=== PATIENT | female | born 1960 | race Two or more races ===

== ENCOUNTER 2025-01-09 22:38 | Inpatient (IN) | payer MEDICARE, MEDICAID ==
[~2025-01-09] VITALS: Ht 157.5 cm; Wt 70.6 kg
[~2025-01-09 22:38] MED LIST: ATOR40TA52 PO; CARV3.1240 PO; FLUO-470 PO; FURO40TA4 PO; LEVO137T3 PO; TRAZ-227 PO
--- NOTE | 2025-01-09 23:39 | ED.PDOC ---
History of Present Illness(SKN HPI Comments 64-year-old female was transferred to the ER from [place] for the management of right foot osteomyelitis and right 1st distal phalanx transverse fracture. Per reviewing of the nodes, patient hit her right foot on the lamp 2-3 months back, since then has been following with [place], she was initially diagnosed with osteomyelitis and was prescribed doxycycline and Augmentin and discharged. Patient return to [place] earlier today for purulent drainage and pain of the right big toe, and had a for X 5 cm full-thickness ulceration with tendon exposed and malodorous drainage. Distal tip of 1st toe with 1 X 1 cm ulceration. Distal plantar foot with fluctuance. Right foot 3+ view x-ray at [place] on 01/09/2025 showed transversely fractuere of the base 1st distal phalynx, Vascular calcification. Anatomy alignment. Patient denies any fever, chills, nausea, vomiting at this time. Reports pain at the right big toe. She was receiving IV vancomycin and Zosyn at [place]. Last hemodialysis was today. Past medical history: Diabetes mellitus type 2 on insulin, hypertension, ESRD on hemodialysis with [facility]-Wednesday//Wednesday sick sinus status post pcm/aicd Attestation note: Dr. Penn: I was the supervising attending for this ED encounter. Please see the resident's notes. I was available for questions and consultations. MDM: MDM: patient presented with the above HPI.--foot fracture/infection---workup was initiated. patient was found with the above mentioned diagnosis. the following medications were ordered: please refer to order lists of meds and tests obtained by myself Dr. Penn. Patient ED course and VS have been stabilized. Patient has been reassessed in the ED and remained in a stable condition. Pertinent incidental findings were discussed with the patient and/or family. Patient/family voices understanding and is agreeable with plan. Patient has been observed in the ED adequate length of time to insure improvement/stability. Escalation of care considered: Consideration of escalation to observation or admission Patient was ADMITTED to the medicine team for further evaluation and treatment of their presentation. All the reports of any imaging studies that were ordered by myself were reviewed by myself. Chief Complaint: Lower Extremity Time Seen by MD: 23:07 History of Present Illness: Allergies Allergies: Coded Allergies: NO KNOWN ALLERGIES (Unverified , 01/09/25) Home Meds Reported Medications Fluoxetine HCl (Fluoxetine HCl) 20 Mg Cap, 1 CAP PO DAILY for 30 Days, #30 01/15/25 Trazodone Hcl (Trazodone Hcl) 50 Mg Tab, 1 TAB PO DAILY for 30 Days, #30 01/15/25 Atorvastatin Calcium (ATORVASTATIN CALCIUM) 40 Mg Tab, 1 TAB PO DAILY for 30 Days, #30 01/15/25 Furosemide (Furosemide) 40 Mg Tab, 1 TAB PO BID for 30 Days, #60 01/15/25 Carvedilol (Carvedilol) 3.125 Mg Tab, 1 TAB PO BID for 30 Days, #60 01/15/25 Levothyroxine Sodium (Levothyroxine Sodium) 137 Mcg Tab, 1 TAB PO DAILY for 30 Days, #30 01/15/25 Information Source: Patient Mode of Arrival: EMS Constitutional: reports: chills EENTM: denies: blurred vision, double vision, ear bleeding, ear discharge, ear drainage, ear pain, ear ringing, eye pain, eye redness, hearing loss, mouth pain, mouth swelling, nasal discharge, nose bleeding, nose congestion, nose pain, photophobia, tearing, throat pain, throat swelling, voice changes, others Respiratory: denies: cough, hemoptysis, orthopnea, SOB at rest, shortness of breath, SOB with excertion, stridor, wheezing, others Cardiovascular: denies: chest pain, dizzy spells, diaphoresis, Dyspnea on exertion, edema, irregular heart beat, left arm pain, lightheadedness, p alpitations, PND, syncope, others Gastrointestinal: reports: constipated Genitourinary: denies: abnormal vagina bleeding, burning, dyspareunia, dysuria, flank pain, frequency, hematuria, incontinence, pain, , vagina discharge, urgency, others Neurological: denies: dizziness, fainting, headache, left sided numbness, left sided weakness, numbness, paresthesia, pre-existing deficit, right sided numbness, right sided weakness, seizure, speech problems, tingling, tremors, weakness, others Musculoskeletal: reports: joint pain Integumetry: reports: laceration, wounds Allergic/Immunocompromised: denies: Difficulty Healing, Frequent Infections, Hives, Itching, others Hematologic/Lymphatic: denies: anemia, blood clots, easy bleeding, easy bruising, swollen glands, others Endocrine: denies: excessive hunger, excessive sweating, excessive thirst, excessive urination, flushing, intolerance to cold, intolerance to heat, unexplained weight gain, unexplained weight loss, others Psychiatric: denies: anxiety, bipolar disorder, depression, hopeless, panic disorder, schizophrenia, sleepless, suicidal, others Physical Exam General Appearance: Mild Distress HEENT: Cornea (L), Cornea (R) Neck: NOT DONE Respiratory: No Accessory Muscle Use, No Respiratory Distress, Normal Breath Sounds Cardiovascular: No Edema, Regular Rate/Rhythm Breast Exam: Deferred Gastrointestinal: No Organomegaly, Non Tender, Normal Bowel Sounds Genitalia: Deferred Pelvic: Deferred Rectal: Deferred Extremities: Other (Right foot has 4x4cm purulent draining malodorous deep wound, sensation intact, motor function intact) Neurologic: Normal Mood, Other (Right lower extremity has intact motor and sen mirian function) Cerebellar Function: NOT DONE Reflexes: NOT DONE Skin: Warm, Wounds Lymphatic: NOT DONE Was a procedure done? Was a procedure done?: No Differential Diagnosis (INTG) Differential Diagnosis: Cellulitis, Contusion, Fracture, Hematoma, Puncture Wound Differential Diagnosis: Abscess, Cellulitis, Gangrene, Osteomyelitis Differential Diagnosis: Abrasion, Fracture, Neurovascular Injury Abscess: Abscess, Bacteremia Differential Diagnosis: Open Fracture, Osteomyelitis X-Ray, Labs, Meds, VS Vital Signs Date Time Temp Pulse Resp B/P (MAP) Pulse Ox O2 Delivery O2 Flow Rate FiO2 01/09/25 23:04 72 16 145/73 95 Lab Test 01/09/25 23:40 Range/Units White Blood Count 11.2 H 4.4-10.8 10^3/uL Red Blood Count 3.10 L 4.0-5.20 10^6/uL Hemoglobin 10.3 L 12.2-16.2 g/dL Hematocrit 30.4 L 36.0-46.0 % Mean Corpuscular Volume 97.9 80.0-100.0 fL Mean Corpuscular Hemoglobin 33.1 H 28.0-32.0 pg Mean Corpuscular Hemoglobin Concent 33.8 32.0-36.0 g/dL Red Cell Distribution Width 15.1 H 11.8-14.3 % Platelet Count 188 140-450 10^3/uL Mean Platelet Volume 8.4 6.9-10.8 fL Neutrophils (%) (Auto) 88.5 H 37.0-80.0 % Lymphocytes (%) (Auto) 5.1 L 10.0-50.0 % Monocytes (%) (Auto) 5.3 0.0-12.0 % Eosinophils (%) (Auto) 0.5 0.0-7.0 % Basophils (%) (Auto) 0.6 0.0-2.0 % Neutrophils # (Auto) 9.9 H 1.6-8.6 10 ^3/uL Lymphocytes # (Auto) 0.6 0.4-5.4 10 ^3/uL Monocytes # (Auto) 0.6 0-1.3 10 ^3/uL Eosinophils # (Auto) 0.1 0-0.8 10 ^3/uL Basophils # (Auto) 0.1 0-0.2 10 ^3/uL Nucleated Red Blood Cells 0.0 % Erythrocyte Sedimentation Rate 54 H 0-20 mm/hr Sodium Level 141 136-145 mmol/L Potassium Level 3.6 3.5-5.1 mmol/L Chloride Level 101 98-107 mmol/L Carbon Dioxide Level 29 20-31 mmol/L Anion Gap 11 5-15 Blood Urea Nitrogen 19 9-23 mg/dL Creatinine 2.48 H 0.550-1.02 mg/dL Glomerular Filtration Rate Calc 21 >90 mL/min BUN/Creatinine Ratio 7.7 L 10.0-20.0 Serum Glucose 155 H 74-106 mg/dL Lactic Acid Level 1.3 0.4-2.0 mmol/L Calcium Level 9.2 8.7-10.4 mg/dL Total Bilirubin 0.6 0.2-1.0 mg/dL Aspartate Amino Transferase (AST) 16 13-40 U/L Alanine Aminotransferase (ALT) 10 7-40 U/L Alkaline Phosphatase 144 H 46-116 U/L C-Reactive Protein High Sensitivity 4.44 H <1.0 mg/dL Total Protein 6.6 5.7-8.2 g/dL Albumin 3.6 3.2-4.8 g/dL Hepatitis B Surface Antigen Negative Negative Hepatitis C Antibody Negative Negative Microbiology Date/Time Source Procedure Growth Status 01/09/25 23:45 Blood Blood Culture - Final NO GROWTH AFTER 5 DAYS OF INCUBATION. Complete 01/09/25 23:45 Blood Blood Culture - Final NO GROWTH AFTER 5 DAYS OF INCUBATION. Complete X-Ray, Labs, Meds, VS Comment CBC CMP right foot CT scan without contrast pending at this time Time of 1ST Reevaluation: 00:09 Reevaluation 1ST: Unchanged Consultation: PCP, Other (Podiatry) Patient Education/Counseling: Prognosis, Need For Follow Up Family Education/Counseling: Other (Spoke to daughter zafar over the phone) SEPSIS Sepsis Screen Date sepsis recognized/suspect: Jan 09, 2025 Time Sepsis recognized/suspect: 2306 Recent Procedure: No On Antibiotic Therapy: No Respiratory Rate >20: No Heart Rate >90: No Temp<36 C (96.8 F) or >38.3 C: No SBP <90 or MAP <65 mmHG: No New Acute Mental Status Change: No Is the patient on CPAP, BIPAP,: No Physician Orders Ct R Foot Wo Contrast (01/09/25 23:42) Vital Signs Date Time Temp Pulse Resp B/P (MAP) Pulse Ox O2 Delivery O2 Flow Rate FiO2 01/09/25 23:04 72 16 145/73 95 Laboratory Tests Test 01/09/25 23:40 Lactic Acid Level 1.3 mmol/L (0.4-2.0) White Blood Count 11.2 10^3/uL (4.4-10.8) H Departure 1 Departure Time of Disposition: 23:38 Impression: Primary Impression: Toe osteomyelitis, right Additional Impression: Toe fracture, right Disposition: ADMITTED INPATIENT Admit to: Tele Condition: Guarded Discharged With: Self Critical Care Note Critical Care Time?: No Stability Stability form required: No MILLY SNYDER RESIDENT Jan 09, 2025 23:39 ROSIBEL PENN DO Jan 25, 2025 22:44
[2025-01-10] VITALS (8 sets, daily range): BP systolic 127–138; BP diastolic 72–84; PULSE 69–77; RESP 14–18; TEMP 97.5–97.6; O2SAT 92–98
[2025-01-10] LABS: Hematocrit 30.4 % (36.0-46.0); Hemoglobin 10.3 g/dL (12.2-16.2); Mean Corpuscular Hemoglobin 33.1 pg (28.0-32.0); Mean Corpuscular Volume 97.9 fL (80.0-100.0); Nucleated Red Blood Cells % 0.0 %
[2025-01-10 00:19] LABS: Alanine Aminotransferase 10 U/L (7-40); Albumin 3.6 g/dL (3.2-4.8); Anion Gap 11 (5-15); BUN/Creatinine Ratio 7.7 (10.0-20.0); Bilirubin, Total 0.6 mg/dL (0.2-1.0); Blood Urea Nitrogen 19 mg/dL (9-23); Calcium 9.2 mg/dL (8.7-10.4); Carbon Dioxide 29 mmol/L (20-31); Chloride 101 mmol/L (98-107); Potassium 3.6 mmol/L (3.5-5.1); Sodium 141 mmol/L (136-145); Total Protein 6.6 g/dL (5.7-8.2)
[2025-01-10 00:21] LABS: Alkaline Phosphatase 144 U/L (46-116); Glucose 155 mg/dL (74-106)
--- NOTE | 2025-01-10 00:23 | DVH ---
EXAMINATION: CT CT R FOOT WO CONTRAST INDICATION: osteomyelitis, purulent wount COMPARISON: None TECHNIQUE: CT of the rightleft foot was performed without contrast. Volume transverse images were obt ained reconstructed in multiple planes using bone and soft tissue algorithms. Dose: CTDI vol: 8 mGy. DLP: 175 mGy-cm. FINDINGS: Assessment of soft tissues is limited by lack of IV contrast. Large full-thickness dorsal ulcer extending across the 1st-2nd metatarsophalangeal joints. Erosion an d fragmentation throughout the 1st distal phalanx with intraosseous gas. Soft tissue gas extends angelica g the plantar foot to the medial midfoot, and laterally to the 4th toe. Diffuse soft tissue swelling of the forefoot. No other obvious erosion or fracture. Metatarsal mineralization appears normal. The hallux sesamoids are diffusely sclerotic, a nonspecific appearance. No obvious fluid collection. Diffuse atrophy of intrinsic foot muscles. Dense peripheral atherosclero sis. IMPRESSION: Large dorsal full-thickness soft tissue ulcer of the medial forefoot. Osteomyelitis and fragmentatio n of the 1st distal phalanx. Gas extending along osseous structures to the 1st tarsometatarsal joint , and laterally to the 4th toe, all likely positive for osteomyelitis.
[2025-01-10] MEDS ORDERED: MORPHINE SULFATE INJ 2 MG/ml SYRG IV PRN (00:30)
[2025-01-10] MEDS ORDERED: VANCOMYCIN PER PHARMACY 0 MG IV SCH (00:30)
--- NOTE | 2025-01-10 00:31 | DVHHPRES ---
History of Present Illness Resident Creating Document: BURAK JIMÉNEZ History of Present Illness Kaitlin Ojeda is a 64-year-old female patient who presents to ED with chief complaint of nonhealing right foot wound which started three weeks before her admission, progressively got worse presenting purulent discharge with foul smell and not able to bear weight on her foot. Worsening symptoms prompted her visit to the ED. Patient denies any associated symptoms including fever, chills, palpitation, syncope and dysuria. Past medical history: Hypertension, dyslipidemia, prediabetes, congestive heart failure status post ICD placement, hypothyroidism, end-stage renal disease on hemodialysis (currently with [facility]), anxiety Surgical history: Av fistula right arm, ICD placement Family history: Noncontributory Social history: Lives in [place] alone (next of kin is daughter). Denies current tobacco, alcohol and other drug abuse Allergies: Denies Home medication: Insulin, atorvastatin, carvedilol, levothyroxine 137 mcg p.o. daily Patient seen and examined at bedside. Currently has no new complaints. Patient admitted for further evaluation Past Medical History Per HPI Past Surgical History Per HPI Family History Per HPI Past Social History Per HPI Review of Systems Review of Systems Per HPI Allergies: Coded Allergies: NO KNOWN ALLERGIES (Unverified , 01/09/25) Exam Vital Signs Vital Signs Date Time Temp Pulse Resp B/P (MAP) Pulse Ox O2 Delivery O2 Flow Rate FiO2 01/09/25 23:04 72 16 145/73 95 Exam Patient lying in bed, in no acute distress General: Lucid, afebrile, mucosae are moist Cardiovascular: Normal S1 and S2. No murmurs, gallops or rubs Respiratory: Normal ventilation mechanics. Clear lung sounds on auscultation Abdomen: Soft, nontender, no organomegaly, normal bowel sounds MSK/skin: Mobilizes 4 limbs. Skin is dry and warm. Right foot is swollen, has purulent discharge and erythema, bilateral pulses diminished more right than left, atrophic changes on skin of bilateral lower limbs. Presents AV fistula in right arm which thrills. Neurological: Oriented in 3 spheres. No motor no sensitive deficits. Pupils are isocoric and reactive Labs/Xrays Labs Test 01/09/25 23:40 Range/Units White Blood Count 11.2 H 4.4-10.8 10^3/uL Red Blood Count 3.10 L 4.0-5.20 10^6/uL Hemoglobin 10.3 L 12.2-16.2 g/dL Hematocrit 30.4 L 36.0-46.0 % Mean Corpuscular Volume 97.9 80.0-100.0 fL Mean Corpuscular Hemoglobin 33.1 H 28.0-32.0 pg Mean Corpuscular Hemoglobin Concent 33.8 32.0-36.0 g/dL Red Cell Distribution Width 15.1 H 11.8-14.3 % Platelet Count 188 140-450 10^3/uL Mean Platelet Volume 8.4 6.9-10.8 fL Neutrophils (%) (Auto) 88.5 H 37.0-80.0 % Lymphocytes (%) (Auto) 5.1 L 10.0-50.0 % Monocytes (%) (Auto) 5.3 0.0-12.0 % Eosinophils (%) (Auto) 0.5 0.0-7.0 % Basophils (%) (Auto) 0.6 0.0-2.0 % Neutrophils # (Auto) 9.9 H 1.6-8.6 10 ^3/uL Lymphocytes # (Auto) 0.6 0.4-5.4 10 ^3/uL Monocytes # (Auto) 0.6 0-1.3 10 ^3/uL Eosinophils # (Auto) 0.1 0-0.8 10 ^3/uL Basophils # (Auto) 0.1 0-0.2 10 ^3/uL Nucleated Red Blood Cells 0.0 % Sodium Level 141 136-145 mmol/L Potassium Level 3.6 3.5-5.1 mmol/L Chloride Level 101 98-107 mmol/L Carbon Dioxide Level 29 20-31 mmol/L Anion Gap 11 5-15 Blood Urea Nitrogen 19 9-23 mg/dL Creatinine 2.48 H 0.550-1.02 mg/dL Glomerular Filtration Rate Calc 21 >90 mL/min BUN/Creatinine Ratio 7.7 L 10.0-20.0 Serum Glucose 155 H 74-106 mg/dL Lactic Acid Level 1.3 0.4-2.0 mmol/L Calcium Level 9.2 8.7-10.4 mg/dL Total Bilirubin 0.6 0.2-1.0 mg/dL Aspartate Amino Transferase (AST) 16 13-40 U/L Alanine Aminotransferase (ALT) 10 7-40 U/L Alkaline Phosphatase 144 H 46-116 U/L C-Reactive Protein High Sensitivity 4.44 H <1.0 mg/dL Total Protein 6.6 5.7-8.2 g/dL Albumin 3.6 3.2-4.8 g/dL SEPSIS Sepsis Screen Date sepsis recognized/suspect: Jan 09, 2025 Time Sepsis recognized/suspect: 2306 Recent Procedure: No On Antibiotic Therapy: No Respiratory Rate >20: No Heart Rate >90: No Temp<36 C (96.8 F) or >38.3 C: No SBP <90 or MAP <65 mmHG: No New Acute Mental Status Change: No Is the patient on CPAP, BIPAP,: No Physician Orders Cleanse Wound With Ns (01/09/25 23:27) Cleanse Wound W/ Sterile Gauze (01/09/25 23:27) Erythrocyte Sedimentation Rate (01/09/25 23:28) Blood Culture (01/09/25 23:28) Ct R Foot Wo Contrast (01/09/25 23:42) Admit (01/10/25 00:22) Code Status (01/10/25 00:) Acetaminophen Tablet (Tylenol Tablet) (01/10/25 00:30) Ondansetron Hcl (Zofran) (01/10/25 00:30) Morphine Sulfate Injection (01/10/25 00:30) Enoxaparin Sodium (Lovenox) (01/10/25 10:00) Oxygen By Nasal Cannula (01/10/25:22) Stat Ekg For Chest Pain (01/10/25:) Notify Md Of Changes From Base (01/10/25:) Resident Care Director For 24 Hours (01/10/25:) Emergency Dysrhythmia Protocol (01/10/25) Rhythm Strips Once Every Shift (01/10/25:) Vancomycin 1gm/250ml Kit (01/10/25 00:30) Vancomycin Per Pharmacy (01/10/25 00:30) Piperacillin-Tazob 3.375gm (Zosyn 3.375g (01/10/25 06:00) Piperacillin-Tazob 3.375gm (Zosyn 3.375g (01/10/25 00:30) Npo (Nothing By Mouth) Diet (01/10/25 Breakfast) Vital Signs Date Time Temp Pulse Resp B/P (MAP) Pulse Ox O2 Delivery O2 Flow Rate FiO2 01/09/25 23:04 72 16 145/73 95 Laboratory Tests Test 01/09/25 23:40 Lactic Acid Level 1.3 mmol/L (0.4-2.0) White Blood Count 11.2 10^3/uL (4.4-10.8) H Assessment/Plan Assessment/Plan Diabetic foot complicated with osteomyelitis in right foot Cellulitis of right foot Rule out PAD Completed foot CT which shows osteomyelitis and fragmentation 1st distal phalanx, gas extending along nauseous structures from tarsometatarsal joint laterally two 4th toe. Ordered mistry cultures (blood, wound, urine) Currently under empiric IV antibiotic (Zosyn and linezolid). Evaluate switching to vancomycin once nephrology is on board for hemodialysis. Consulted wound care and podiatry Ordered bilateral lower limb duplex arterial ultrasound End-stage renal disease on hemodialysis session Consulted nephrology, pending hemodialysis session Normocytic anemia probably secondary to ESRD Monitor Congestive heart failure (pending LVEF) - status post ICD placement Ordered echocardiogram Hypertension Dyslipidemia Diabetes Currently on insulin sliding scale Continue home medication (carvedilol and atorvastatin) Gave advice on healthy lifestyle habits Ordered hemoglobin A1c Goals of care discussed with patient for over 18 minutes of all full code status Discussed plan with Dr. Bowie, patient and nurses: Patient currently on telemetry status, planning on evaluation by Wound Care and Podiatry same plan of action. Patient is currently under empiric IV antibiotic, no IV fluids due to end-stage renal disease, ordered complementary workup to evaluate infection and peripheral artery disease. Patient has poor prognosis Plan discussed with: Patient, Other (Nurses) My Orders Orders - BURAK JIMÉNEZ RESIDENT Procedure Category Date Status Time Admit ADMIT 01/10/25 Transmitted 00:22 Code Status CODE 01/10/25 Transmitted 00:22 Acetaminophen Tablet PHA 01/10/25 Logged (Tylenol Tablet) 00:30 Ondansetron Hcl PHA 01/10/25 Logged (Zofran) 00:30 Morphine Sulfate PHA 01/10/25 Logged Injection 00:30 Enoxaparin Sodium PHA 01/10/25 Logged (Lovenox) 10:00 Oxygen By Nasal RT 01/10/25 Transmitted Cannula 00:22 Stat Ekg For Chest [facility] 01/10/25 In Process Pain 00:22 Notify Of Changes [facility] 01/10/25 In Process From Base 00:22 Resident Care Director For [facility] 01/10/25 In Process 24 Hours 00:22 Emergency Dysrhythmia [facility] 01/10/25 In Process Protocol 00:22 Rhythm Strips Once [facility] 01/10/25 In Process Every Shift 00:22 Vancomycin 1gm/250ml PHA 01/10/25 Logged Kit 00:30 Vancomycin Per PHA 01/10/25 Logged Pharmacy 00:30 Piperacillin-Tazob PHA 01/10/25 Logged 3.375gm (Zosyn 3.375g 06:00 Piperacillin-Tazob PHA 01/10/25 Logged 3.375gm (Zosyn 3.375g 00:30 Npo (Nothing By DIET 01/10/25 Transmitted Mouth) Diet Breakfast Date of Service: Jan 10, 2025 Billing Provider: ROBERTO BOWIE MD Common Visit Codes: 54914-[id number] INP/OBS CARE (HIGH) Secondary Visit Codes: 80299-[id number] CARE PLAN 30 MINUTES BURAK JIMÉNEZ RESIDENT Jan 10, 2025 00:31
--- NOTE | 2025-01-10 02:29 | DVH ---
CHEST RADIOGRAPH Indication: Sepsis Technique: Single frontal view of the chest was obtained COMPARISON: None FINDINGS: Lines and Tubes: Left anterior chest wall cardiac pacing device. Lungs: Clear Pleura: No effusion. No pneumothorax. Cardiomediastinal contours: Cardiomegaly. Bones: Unremarkable IMPRESSION: 1. Cardiomegaly.
[2025-01-10] MEDS: VANCOMYCIN 1.5GM/250ML 250 ML IV ONE (03:04)
[2025-01-10] MEDS: SODIUM CHLORIDE 0.9% 250 ML IV ONE (04:03)
[2025-01-10] MEDS: PIPERACILLIN-TAZOB 3.375GM 100 ML IV ONE (04:56)
[2025-01-10] MEDS: SODIUM CHLORIDE 0.9% 1,000 ML IV SCH (05:13)
[2025-01-10] MEDS ORDERED: PIPERACILLIN-TAZOB 3.375GM 100 ML IV SCH (06:00)
[2025-01-10] MEDS: ENOXAPARIN SOD 40 MG/0.4 ML SYRINGE SC SCH (08:20)
[2025-01-10] MEDS: LINEZOLID 600MG/300ML 300 ML IV SCH (08:54)
[2025-01-10] MEDS: ONDANSETRON HCL 4 MG/2 ML VIAL IV PRN (09:55)
[2025-01-10 10:48] LABS: Hepatitis B Surface Antigen Negative (Negative); Hepatitis C Antibody Negative (Negative)
[2025-01-10] MEDS: CARVEDILOL 3.125 MG TAB PO ONE (12:04)
[2025-01-10] MEDS: LEVOTHYROXINE SODIUM 50 MCG TAB PO ONE (12:05)
[2025-01-10] MEDS: PIPERACILLIN-TAZOB 3.375GM 100 ML IV SCH (12:05)
[2025-01-10 12:26] LABS: Hematocrit 31.5 % (36.0-46.0); Hemoglobin 10.3 g/dL (12.2-16.2); Mean Corpuscular Hemoglobin 32.2 pg (28.0-32.0); Mean Corpuscular Volume 98.7 fL (80.0-100.0); Nucleated Red Blood Cells % 0.0 %
[2025-01-10 12:30] LABS: INR 1.21 (0.9-1.15); Partial Thromboplastin Time 32.4 SEC (24.5-34.5); Prothrombin Time 12.6 sec (9.3-11.8)
--- NOTE | 2025-01-10 13:00 | DVHPN2 ---
Reviewed: Care Plan Changes from previous H/P or p: No Changes Objective Vitals Vital Signs Date Time Temp Pulse Resp B/P (MAP) Pulse Ox O2 Delivery O2 Flow Rate FiO2 01/10/25 12:04 79 142/78 01/10/25 09:00 97.6 18 92 97.6 01/10/25 07:53 Room Air* 0 21 Intake/Output Intake and Output 01/10/25 07:00 Intake Total 1250 ml Balance 1250 ml Intake IV Total 1250 ml # Voids 2 Medications Current Medications Medications Dose Ordered Sig/Seth Route Start Time Stop Time Status Last Admin Dose Admin Acetaminophen 325 mg Q4HP PRN PO 01/10/25 00:30 Ondansetron HCl 4 mg Q4HP PRN IV 01/10/25 00:30 01/10/25 09:55 4 MG Morphine Sulfate 2 mg Q4HPRN PRN IV 01/10/25 00:30 Enoxaparin Sodium 40 mg DAILY SC 01/10/25 10:00 Linezolid 300 ml @ 150 mls/hr Q12HR IV 01/10/25 10:00 01/10/25 08:54 150 MLS/HR Sodium Chloride 1,000 ml @ 60 mls/hr [id number] IV 01/10/25 03:30 01/10/25 05:13 60 MLS/HR Piperacillin Sod/ Tazobactam Sod 100 ml @ 25 mls/hr Q8H IV 01/10/25 13:15 01/10/25 12:05 25 MLS/HR Atorvastatin Calcium 40 mg HS PO 01/10/25 22:00 Carvedilol 3.125 mg Q12HR PO 01/10/25 22:00 Levothyroxine Sodium 125 mcg QAM@0600 PO 01/11/25 06:00 Laboratory Results Laboratory Tests 01/10/25 11:31 Chemistry Test 01/09/25 23:40 01/10/25 11:31 Albumin 3.6 g/dL (3.2-4.8) Pending Calcium Level 9.2 mg/dL (8.7-10.4) Pending Total Protein 6.6 g/dL (5.7-8.2) Pending Magnesium Level Pending Phosphorus Level Pending Coagulation Test 01/10/25 11:31 Prothrombin Time 12.6 sec (9.3-11.8) H Prothrombin Time INR 1.21 (0.9-1.15) H Activated Partial Thromboplast Time 32.4 SEC (24.5-34.5) Lipid panel Test 01/10/25 11:31 Cholesterol Level Pending HDL Cholesterol Pending Triglycerides Level Pending LFT Test 01/09/25 23:40 01/10/25 11:31 Alanine Aminotransferase (ALT) 10 U/L (7-40) Pending Alkaline Phosphatase 144 U/L (46-116) H Pending Aspartate Amino Transferase (AST) 16 U/L (13-40) Pending Total Bilirubin 0.6 mg/dL (0.2-1.0) Pending HgA1c, TSH Test 01/10/25 11:31 Hemoglobin A1c Pending Thyroid Stimulating Hormone (TSH) Pending Labs and/or images reviewed: Labs reviewed by me, Image(s) reviewed by me Assessment/Plan Assessment/Plan Sepsis Secondary to right foot infection Nonhealing chronic right foot diabetic ulcer Osteomyelitis right 1st toe: Zojune Zyvarthur, consult for podiatric Dr. Crowder Rule out peripheral arterial disease: Arterial ultrasound pending Uncontrolled Diabetes: Insulin sliding scale ESRD on hemodialysis Anxiety Hypothyroidism Hypertension Hypercholesterolemia CHF exacerbation History of ICD placement Time spent 70 minutes Advanced care planning time 20 minutes Patient is full code Patient lives with her nephew in [place] Daughter lives in [place] Plan discussed with: Patient My Orders Orders - CANDIDA GALLEGOS MD Procedure Category Date Status Time Vasc Arterial Tova US 01/10/25 Transmitted Complete 12:49 Date of Service: Jan 10, 2025 Billing Provider: CANDIDA GALLEGOS MD Common Visit Codes: [id number] CARE 30-74 MIN CANDIDA GALLEGOS MD Jan 10, 2025 13:00
[2025-01-10 13:28] LABS: Alanine Aminotransferase 12 U/L (7-40); Albumin 3.5 g/dL (3.2-4.8); Alkaline Phosphatase 135 U/L (46-116); Anion Gap 11 (5-15); BUN/Creatinine Ratio 8.1 (10.0-20.0); Blood Urea Nitrogen 22 mg/dL (9-23); Calcium 8.9 mg/dL (8.7-10.4); Carbon Dioxide 27 mmol/L (20-31); Chloride 102 mmol/L (98-107); Cholesterol 91 mg/dL (< 200); Glucose 165 mg/dL (74-106); Magnesium 1.9 mg/dL (1.6-2.6); Potassium 3.7 mmol/L (3.5-5.1); Sodium 140 mmol/L (136-145); Total Protein 6.5 g/dL (5.7-8.2); Triglycerides 79 mg/dL (< 150)
[2025-01-10 13:29] LABS: Bilirubin, Total 0.8 mg/dL (0.2-1.0); HDL Cholesterol 37 mg/dL (40-59)
--- NOTE | 2025-01-10 15:25 | DVH ---
BILATERAL Lower Extremity Arterial Duplex Date: 01/10/2025 01:27 PM Clinical History: R/o PAD Comparison: None Technique: Duplex Doppler evaluation including color Doppler and spectral/pulsed waveform analysis of the lower extremity arteries was performed. Finding: RIGHT: Peak systolic velocities are as follows: FISCAL OFFICER 52 cm/s triphasic waveform Deep femoral 44 cm/s biphasic waveform SFA proximal 54 cm/s triphasic waveform SFA mid-portion 54 cm/s triphasic waveform SFA distal 44 cm/s triphasic waveform Popliteal 47 cm/s triphasic waveform Posterior tibial 215 cm/s monophasic waveform findings suggest 50-75% stenosis. RAQUEL: 56 CM/S; monophasic waveform Dorsalis pedis 0 cm/s The waveforms are biphasic and triphasic waveforms of the knee. 50-75% stenosis of the right posterio r tibial artery with monophasic waveform in the anterior posterior tibial artery. No flow in the dors irma pedis. LEFT: Peak systolic velocities are as follows: FISCAL OFFICER 74 cm/s triphasic waveform Deep femoral 64 cm/s triphasic waveform SFA proximal 64 cm/s triphasic waveform SFA mid-portion 71 cm/s triphasic waveform SFA distal 59 cm/s triphasic waveform Popliteal a 3 triphasic waveform cm/s Posterior tibial 288 cm/s triphasic waveform Anterior tibial cm/s monophasic waveform Dorsalis pedis 0 cm/s The waveforms are triphasic waveform to the knee. 50-75% stenosis left posterior tibial artery. Wavef orm not well seen in the left anterior tibial artery. Monophasic waveform anterior tibial artery. REFERENCE VALUES, [facility] ([facility]) vascular Imaging Lab Criteria: Peak systolic velocity ranges (in cm/sec) are as follows: <150 cm/s - <20 % stenosis 150-200 cm/s - 20-49% stenosis 200-300 cm/s - 50-75% stenosis >300 cm/s -> 75% stenosis IMPRESSION: 1. There is 50-75% stenosis right posterior tibial artery monophasic waveform [id number] no flow noted in the right dorsalis pedis 2. Triphasic waveform 2 the rt knee. 3. 50-75% stenosis left posterior tibial artery 4. Monophasic waveform noted left anterior tibial artery and no flow in the left dorsalis pedis. 5. No significant focal stenosis is identified.
[2025-01-10] MEDS: MORPHINE SULFATE 4 MG/ML SYR/VIAL IV PRN (21:03)
[2025-01-10] MEDS: TEMAZEPAM 15 MG CAP PO ONE (21:04)
[2025-01-10] MEDS: CARVEDILOL 3.125 MG TAB PO SCH (21:04)
[2025-01-10] MEDS: ATORVASTATIN 20 MG TAB PO SCH (21:04)
[2025-01-11] VITALS (9 sets, daily range): BP systolic 125–138; BP diastolic 70–90; PULSE 68–87; RESP 16–20; TEMP 97.5–98.3; O2SAT 91–94
[2025-01-11] MEDS: LEVOTHYROXINE SODIUM 50 MCG TAB PO SCH (05:16)
--- NOTE | 2025-01-11 07:10 | DVHINCON2 ---
Date of service: Jan 11, [address] Pato Gerardo Reason for Consultation Dialysis History of Present Illness 64 Y/O F with history of ESRD on HD, DM, HTN, and hypothyroidism was transferred from [facility] for management of right foot osteomyelitis. levi hit her right foot a few months ago, and was treated with oral antibiotics, but is now having purulent drainage from the right big toe. She is afebrile and hemodynamically stable. labs show K 3.7, Hb: 10.2, and WBC is 11.2. She is on Linezolid and Zosyn. Nephrology consulted for maintenance of dialysis. Past Medical History ESRD on HD, DM, HTN, and hypothyroidism Past Surgical History AVF creation Allergies: Coded Allergies: NO KNOWN ALLERGIES (Unverified , 01/09/25) Current Medications Current Medications Medications (Trade) Dose Ordered Sig/Seth Route PRN Reason Start Time Stop Time Status Last Admin Enoxaparin Sodium (Lovenox) 40 mg DAILY SC 01/10/25 10:00 Linezolid 300 ml @ 150 mls/hr Q12HR IV 01/10/25 10:00 01/10/25 21:04 Piperacillin Sod/ Tazobactam Sod 100 ml @ 25 mls/hr Q8H IV 01/10/25 13:15 01/11/25 05:15 Atorvastatin Calcium (Lipitor) 40 mg HS PO 01/10/25 22:00 01/10/25 21:04 Carvedilol (Coreg Tablet) 3.125 mg Q12HR PO 01/10/25 22:00 01/10/25 21:04 Levothyroxine Sodium (Synthroid Tablet) 125 mcg QAM@0600 PO 01/11/25 06:00 01/11/25 05:16 Morphine Sulfate 2 mg Q4HPRN PRN IV SEVERE PAIN (7-10 PAIN SCALE) 01/10/25 21:00 01/10/25 21:03 Family History: Diabetes mellitus G8 MOTHER G8 FATHER Review of Systems As per HPI, all other systems were reviewed and are negative. H&P Exam Vital Signs/I&O Vital Sign Date Time Temp Pulse Resp B/P (MAP) Pulse Ox O2 Delivery O2 Flow Rate FiO2 01/11/25 05:00 97.5 73 17 134/86 (102) 91 97.5 01/10/25 20:03 Room Air* 0 21 Intake and Output 01/10/25 01/11/25 19:00 07:00 Intake Total 500 ml 600 ml Output Total 1000 ml 0 ml Balance -500 ml 600 ml Intake Oral 500 ml 200 ml IV Total 400 ml Output Urine Total 1000 ml 0 ml Physical Exam Gen: NAD HEENT: NC,AT Lungs: CTA b/l Cardiac: RRR, no murmur Abd: soft, no tenderness Ext: no edema on legs Neuro: no focal deficits Labs/Diagnostic Data Labs/Diagnostic Data Laboratory Tests Test 01/10/25 11:31 01/09/25 23:40 Range/Units White Blood Count 10.9 H 11.2 H 4.4-10.8 10^3/uL Red Blood Count 3.19 L 3.10 L 4.0-5.20 10^6/uL Hemoglobin 10.3 L 10.3 L 12.2-16.2 g/dL Hematocrit 31.5 L 30.4 L 36.0-46.0 % Mean Corpuscular Volume 98.7 97.9 80.0-100.0 fL Mean Corpuscular Hemoglobin 32.2 H 33.1 H 28.0-32.0 pg Mean Corpuscular Hemoglobin Concent 32.7 33.8 32.0-36.0 g/dL Red Cell Distribution Width 15.2 H 15.1 H 11.8-14.3 % Platelet Count 187 188 140-450 10^3/uL Mean Platelet Volume 8.8 8.4 6.9-10.8 fL Neutrophils (%) (Auto) 90.0 H 88.5 H 37.0-80.0 % Lymphocytes (%) (Auto) 4.3 L 5.1 L 10.0-50.0 % Monocytes (%) (Auto) 4.6 5.3 0.0-12.0 % Eosinophils (%) (Auto) 0.6 0.5 0.0-7.0 % Basophils (%) (Auto) 0.5 0.6 0.0-2.0 % Neutrophils # (Auto) 9.8 H 9.9 H 1.6-8.6 10 ^3/uL Lymphocytes # (Auto) 0.5 0.6 0.4-5.4 10 ^3/uL Monocytes # (Auto) 0.5 0.6 0-1.3 10 ^3/uL Eosinophils # (Auto) 0.1 0.1 0-0.8 10 ^3/uL Basophils # (Auto) 0.1 0.1 0-0.2 10 ^3/uL Nucleated Red Blood Cells 0.0 0.0 % Prothrombin Time 12.6 H 9.3-11.8 sec Prothrombin Time INR 1.21 H 0.9-1.15 Activated Partial Thromboplast Time 32.4 24.5-34.5 SEC Sodium Level 140 141 136-145 mmol/L Potassium Level 3.7 3.6 3.5-5.1 mmol/L Chloride Level 102 101 98-107 mmol/L Carbon Dioxide Level 27 29 20-31 mmol/L Anion Gap 11 11 5-15 Blood Urea Nitrogen 22 19 9-23 mg/dL Creatinine 2.70 H 2.48 H 0.550-1.02 mg/dL Glomerular Filtration Rate Calc 19 21 >90 mL/min BUN/Creatinine Ratio 8.1 L 7.7 L 10.0-20.0 Serum Glucose 165 H 155 H 74-106 mg/dL Hemoglobin A1c 7.3 H <5.7 % A1C Calcium Level 8.9 9.2 8.7-10.4 mg/dL Phosphorus Level 3.4 2.4-5.1 mg/dL Magnesium Level 1.9 1.6-2.6 mg/dL Total Bilirubin 0.8 0.6 0.2-1.0 mg/dL Aspartate Amino Transferase (AST) 26 16 13-40 U/L Alanine Aminotransferase (ALT) 12 10 7-40 U/L Alkaline Phosphatase 135 H 144 H 46-116 U/L Total Protein 6.5 6.6 5.7-8.2 g/dL Albumin 3.5 3.6 3.2-4.8 g/dL Triglycerides Level 79 < 150 mg/dL Cholesterol Level 91 < 200 mg/dL LDL Cholesterol 35 < 100 mg/dL HDL Cholesterol 37 L 40-59 mg/dL Vitamin B12 Level > 4000 H 211-911 pg/mL Thyroid Stimulating Hormone (TSH) 3.78 0.55-4.78 uIU/mL Erythrocyte Sedimentation Rate 54 H 0-20 mm/hr Lactic Acid Level 1.3 0.4-2.0 mmol/L C-Reactive Protein High Sensitivity 4.44 H <1.0 mg/dL Hepatitis B Surface Antigen Negative Negative Hepatitis C Antibody Negative Negative Microbiology Date/Time Source Procedure Growth Status 01/10/25 04:20 Nose MRSA Screen - Final Complete Assessment ESRD on HD Right foot osteomyelitis DM HTN hypothyroidism Leukocytosis Anemia of CKD Hyperphosphatemia Secondary hyperparathyroidism Plan: last HD was on 01/09 at [facility] I will schedule for HD for today continue IV antibiotics per primary team Continue Coreg 3.125 mg PO BID KEVIN post HD as needed , goal Hb: 10-11 g/dl Plan discussed with: Patient DEVON GARSIA MD Jan 11, 2025 07:09
[2025-01-11 09:50] LABS: Amphetamine Screen, Urine Neg (NEGATIVE); Barbiturate Scree,Urine Neg (NEGATIVE); Benzodiazephine Screen, Urine Neg (NEGATIVE); Cannabinoid Screen, Urine Neg (NEGATIVE); Cocaine Screen, Urine Neg (NEGATIVE); Opiate Scree,Urine Neg (NEGATIVE); Phencyclidine Screen, Urine Neg (NEGATIVE)
[2025-01-11 10:26] LABS: Urine Budding Yeast MODERATE /hpf (None Seen); Urine Protein, UAD 2+ (Negative)
--- NOTE | 2025-01-11 10:55 | DVHPN2 ---
Reviewed: Care Plan Changes from previous H/P or p: No Changes Objective Vitals Vital Signs Date Time Temp Pulse Resp B/P (MAP) Pulse Ox O2 Delivery O2 Flow Rate FiO2 01/11/25 10:13 81 129/70 01/11/25 09:00 97.5 20 93 97.5 01/10/25 20:03 Room Air* 0 21 Intake/Output Intake and Output 01/11/25 07:00 Intake Total 1100 ml Output Total 1000 ml Balance 100 ml Intake Oral 700 ml IV Total 400 ml Output Urine Total 1000 ml Medications Current Medications Medications Dose Ordered Sig/Seth Route Start Time Stop Time Status Last Admin Dose Admin Acetaminophen 325 mg Q4HP PRN PO 01/10/25 00:30 Ondansetron HCl 4 mg Q4HP PRN IV 01/10/25 00:30 01/10/25 22:25 4 MG Enoxaparin Sodium 40 mg DAILY SC 01/10/25 10:00 01/11/25 10:14 40 MG Linezolid 300 ml @ 150 mls/hr Q12HR IV 01/10/25 10:00 01/11/25 10:15 150 MLS/HR Sodium Chloride 1,000 ml @ 60 mls/hr [id number] IV 01/10/25 03:30 01/10/25 05:13 60 MLS/HR Piperacillin Sod/ Tazobactam Sod 100 ml @ 25 mls/hr Q8H IV 01/10/25 13:15 01/11/25 05:15 25 MLS/HR Atorvastatin Calcium 40 mg HS PO 01/10/25 22:00 01/10/25 21:04 40 MG Carvedilol 3.125 mg Q12HR PO 01/10/25 22:00 01/11/25 10:13 3.125 MG Levothyroxine Sodium 125 mcg QAM@0600 PO 01/11/25 06:00 01/11/25 05:16 125 MCG Morphine Sulfate 2 mg Q4HPRN PRN IV 01/10/25 21:00 01/10/25 21:03 2 MG Laboratory Results Laboratory Tests 01/10/25 11:31 Chemistry Test 01/10/25 11:31 Albumin 3.5 g/dL (3.2-4.8) Calcium Level 8.9 mg/dL (8.7-10.4) Magnesium Level 1.9 mg/dL (1.6-2.6) Phosphorus Level 3.4 mg/dL (2.4-5.1) Total Protein 6.5 g/dL (5.7-8.2) Coagulation Test 01/10/25 11:31 Prothrombin Time 12.6 sec (9.3-11.8) H Prothrombin Time INR 1.21 (0.9-1.15) H Activated Partial Thromboplast Time 32.4 SEC (24.5-34.5) Lipid panel Test 01/10/25 11:31 Cholesterol Level 91 mg/dL (< 200) HDL Cholesterol 37 mg/dL (40-59) L Triglycerides Level 79 mg/dL (< 150) LFT Test 01/10/25 11:31 Alanine Aminotransferase (ALT) 12 U/L (7-40) Alkaline Phosphatase 135 U/L (46-116) H Aspartate Amino Transferase (AST) 26 U/L (13-40) Total Bilirubin 0.8 mg/dL (0.2-1.0) HgA1c, TSH Test 01/10/25 11:31 Hemoglobin A1c 7.3 % A1C (<5.7) H Thyroid Stimulating Hormone (TSH) 3.78 uIU/mL (0.55-4.78) Urinalysis Test 01/10/25 09:18 Urine Color Yellow (Yellow) Urine Clarity Turbid (Clear) H Urine pH 6.5 (5.0-9.0) Urine Specific [place] 1.019 (1.001-1.035) Urine Protein 2+ (Negative) H Urine Ketones Negative (Negative) Urine Blood Negative /uL (Negative) Urine Nitrite Negative (Negative) Urine Bilirubin Negative (Negative) Urine Urobilinogen Normal mg/dL (Negative) Urine Leukocyte Esterase Trace /uL (Negative) Urine RBC 7 /hpf (0 - 4) Urine Microscopic WBC 4 /HPF (0-5) Urine Squamous Epithelial Cells Few /hpf (<5) Urine Bacteria None seen /hpf (None Seen) Urine Yeast (Budding) Moderate /hpf (None Seen) Urine Glucose 1+ mg/dL (Normal) H Microbiology Microbiology Date/Time Source Procedure Growth Status 01/10/25 04:20 Nose MRSA Screen - Final Complete 01/09/25 23:45 Blood Blood Culture - Preliminary NO GROWTH AFTER 24 HOURS OF INCUBATION. Resulted Labs and/or images reviewed: Labs reviewed by me, Image(s) reviewed by me Assessment/Plan Assessment/Plan Sepsis Secondary to right foot infection Nonhealing chronic right foot diabetic ulcer Osteomyelitis right 1st toe: Alicia Baires, consult for podiatric Dr. Lakesha crooks, blood cultures negative Bilateral peripheral arterial disease consult for Uncontrolled Diabetes: Insulin sliding scale ESRD on hemodialysis Anxiety Hypothyroidism Hypertension Hypercholesterolemia CHF exacerbation History of ICD placement: Cardiology consult pending for clearance for MRI Time spent 50 minutes Advanced care planning time 20 minutes Patient is full code Patient lives with her nephew in [place]; home care giver Janeen [phone] at bedside Daughter lives in [place] Plan discussed with: Patient My Orders Orders - CANDIDA GALLEGOS MD Procedure Category Date Status Time Dietary NOTICE 01/10/25 Transmitted Recommendations 13:23 * Cardiology Consult CONS 01/10/25 Transmitted 15:48 *Dr. [facility] -Da CONS 01/10/25 Transmitted Lauren 18:47 Cleanse Wound With ROB 01/10/25 In Process Wound Clean 16:47 Date of Service: Jan 11, 2025 Billing Provider: CANDIDA GALLEGOS MD Common Visit Codes: [id number] INP/OBS CARE(HIGH) CANDIDA GALLEGOS MD Jan 11, 2025 10:55
[2025-01-11] MEDS: BUPIVACAINE 0.5% P/F INJ 10 ML VIAL ONE (11:42)
--- NOTE | 2025-01-11 13:02 | DVHCONRES ---
Date Seen: Jan 11, 2025 Reason for Consultation Right foot wound History of Present Illness Kaitlin Ojeda is a 64-year-old female patient who presents to ED with chief complaint of nonhealing right foot wound which started three weeks before her admission, progressively got worse presenting purulent discharge with foul smell and not able to bear weight on her foot. Worsening symptoms prompted her visit to the ED. Patient denies any associated symptoms including fever, chills, palpitation, syncope and dysuria. Past Medical History See H&P Past Surgical History See H&P Family History: Diabetes mellitus G8 MOTHER G8 FATHER Allergies: Coded Allergies: NO KNOWN ALLERGIES (Unverified , 01/09/25) Current Medications Current Medications Medications (Trade) Dose Ordered Sig/Seth Route PRN Reason Start Time Stop Time Status Last Admin Piperacillin Sod/ Tazobactam Sod 100 ml @ 25 mls/hr Q8H IV 01/10/25 13:15 01/11/25 05:15 Atorvastatin Calcium (Lipitor) 40 mg HS PO 01/10/25 22:00 01/10/25 21:04 Carvedilol (Coreg Tablet) 3.125 mg Q12HR PO 01/10/25 22:00 01/11/25 10:13 Levothyroxine Sodium (Synthroid Tablet) 125 mcg QAM@0600 PO 01/11/25 06:00 01/11/25 05:16 Morphine Sulfate 2 mg Q4HPRN PRN IV SEVERE PAIN (7-10 PAIN SCALE) 01/10/25 21:00 01/10/25 21:03 Vital Signs Vital Signs Date Time Temp Pulse Resp B/P (MAP) Pulse Ox O2 Delivery O2 Flow Rate FiO2 01/11/25 10:13 81 129/70 01/11/25 09:00 97.5 20 93 97.5 01/10/25 20:03 Room Air* 0 21 Physical Exam Dermatological: Skin is dry with mild erythema and some maceration around the wound site No gross deformities noted Mild non-pitting edema present bilaterally Right dorsal foot wound with purulent drainage and fibrosis with exposed bone and cellulitis Vascular: Dorsalis pedis and posterior tibial pulses are 1+ bilaterally Capillary refill is under 2 seconds Skin temperature is warm bilaterally Neurologic: Protective sensation is absent on the plantar forefoot bilaterally Monofilament testing reveals decreased sensation in multiple plantar sites Musculoskeletal: Range of motion at the ankle and MTP joints is within normal limits. Strength is 5/5 in all tested muscle groups. Gait is antalgic due to offloading of the affected limb. Labs/Diagnostic Data Labs Test 01/10/25 11:31 01/10/25 09:18 01/09/25 23:40 Range/Units White Blood Count 10.9 H 4.4-10.8 10^3/uL Red Blood Count 3.19 L 4.0-5.20 10^6/uL Hemoglobin 10.3 L 12.2-16.2 g/dL Hematocrit 31.5 L 36.0-46.0 % Mean Corpuscular Volume 98.7 80.0-100.0 fL Mean Corpuscular Hemoglobin 32.2 H 28.0-32.0 pg Mean Corpuscular Hemoglobin Concent 32.7 32.0-36.0 g/dL Red Cell Distribution Width 15.2 H 11.8-14.3 % Platelet Count 187 140-450 10^3/uL Mean Platelet Volume 8.8 6.9-10.8 fL Neutrophils (%) (Auto) 90.0 H 37.0-80.0 % Lymphocytes (%) (Auto) 4.3 L 10.0-50.0 % Monocytes (%) (Auto) 4.6 0.0-12.0 % Eosinophils (%) (Auto) 0.6 0.0-7.0 % Basophils (%) (Auto) 0.5 0.0-2.0 % Neutrophils # (Auto) 9.8 H 1.6-8.6 10 ^3/uL Lymphocytes # (Auto) 0.5 0.4-5.4 10 ^3/uL Monocytes # (Auto) 0.5 0-1.3 10 ^3/uL Eosinophils # (Auto) 0.1 0-0.8 10 ^3/uL Basophils # (Auto) 0.1 0-0.2 10 ^3/uL Nucleated Red Blood Cells 0.0 % Prothrombin Time 12.6 H 9.3-11.8 sec Prothrombin Time INR 1.21 H 0.9-1.15 Activated Partial Thromboplast Time 32.4 24.5-34.5 SEC Sodium Level 140 136-145 mmol/L Potassium Level 3.7 3.5-5.1 mmol/L Chloride Level 102 98-107 mmol/L Carbon Dioxide Level 27 20-31 mmol/L Anion Gap 11 5-15 Blood Urea Nitrogen 22 9-23 mg/dL Creatinine 2.70 H 0.550-1.02 mg/dL Glomerular Filtration Rate Calc 19 >90 mL/min BUN/Creatinine Ratio 8.1 L 10.0-20.0 Serum Glucose 165 H 74-106 mg/dL Hemoglobin A1c 7.3 H <5.7 % A1C Calcium Level 8.9 8.7-10.4 mg/dL Phosphorus Level 3.4 2.4-5.1 mg/dL Magnesium Level 1.9 1.6-2.6 mg/dL Total Bilirubin 0.8 0.2-1.0 mg/dL Aspartate Amino Transferase (AST) 26 13-40 U/L Alanine Aminotransferase (ALT) 12 7-40 U/L Alkaline Phosphatase 135 H 46-116 U/L Total Protein 6.5 5.7-8.2 g/dL Albumin 3.5 3.2-4.8 g/dL Triglycerides Level 79 < 150 mg/dL Cholesterol Level 91 < 200 mg/dL LDL Cholesterol 35 < 100 mg/dL HDL Cholesterol 37 L 40-59 mg/dL Vitamin B12 Level > 4000 H 211-911 pg/mL Vitamin D 25-Hydroxy 63.2 30.0-100 ng/mL Thyroid Stimulating Hormone (TSH) 3.78 0.55-4.78 uIU/mL Urine Color Yellow Yellow Urine Clarity Turbid H Clear Urine pH 6.5 5.0-9.0 Urine Specific [place] 1.019 1.001-1.035 Urine Protein 2+ H Negative Urine Ketones Negative Negative Urine Blood Negative Negative /uL Urine Nitrite Negative Negative Urine Bilirubin Negative Negative Urine Urobilinogen Normal Negative mg/dL Urine Leukocyte Esterase Trace Negative /uL Urine RBC 7 0 - 4 /hpf Urine Microscopic WBC 4 0-5 /HPF Urine Squamous Epithelial Cells Few <5 /hpf Urine Bacteria None seen None Seen /hpf Urine Yeast (Budding) Moderate None Seen /hpf Urine Glucose 1+ H Normal mg/dL Urine Opiates Screen Neg NEGATIVE Urine Fentanyl Screen Neg NEGATIVE Urine Barbiturates Screen Neg NEGATIVE Urine Phencyclidine Screen Neg NEGATIVE Urine Amphetamines Screen Neg NEGATIVE Urine Benzodiazepines Screen Neg NEGATIVE Urine Cocaine Screen Neg NEGATIVE Urine Cannabinoids Screen Neg NEGATIVE Erythrocyte Sedimentation Rate 54 H 0-20 mm/hr Lactic Acid Level 1.3 0.4-2.0 mmol/L C-Reactive Protein High Sensitivity 4.44 H <1.0 mg/dL Hepatitis B Surface Antigen Negative Negative Hepatitis C Antibody Negative Negative Microbiology Date/Time Source Procedure Growth Status 01/10/25 04:20 Nose MRSA Screen - Final Complete 01/09/25 23:45 Blood Blood Culture - Preliminary NO GROWTH AFTER 24 HOURS OF INCUBATION. Resulted Problems(with codes): (1) Toe fracture, right (2) Toe osteomyelitis, right Plan/Recommendation ASSESSMENT: Patient is a 64 year old seen on the floor for a worsening ulcer PLAN: - The patients chart was reviewed, clinical findings were discussed with the patient, the etiologies of the conditions were discussed in detail, and a treatment plan was agreed to at this time, with both oral and written instructions provided. - reviewed advanced imaging - discussed plan is to perform an incision and drainage - patient has been - take him to the OR today - we will get cultures in the OR - can weightbear as tolerated in postoperative shoe All questions were answered and concerns addressed to the patient's satisfaction. The patient was given the phone number to the clinic and was told how to make contact with the clinic should any concerns or questions arise. Patient understands that if any questions or concerns arise prior to the next appointment, we should be contacted immediately. FOLLOW-UP: Continue to follow while inpatient Plan discussed with: Patient Visit Coding Podiatry Date of Service if different f: Jan 11, 2025 Billing Provider: MARYCRUZ EASTMAN DPM Podiatry Common Visit Codes: CONSULT ONLY Podiatry Consult Codes: [id number]/OBS [id number] NEW/EST HI 80 MARYCRUZ EASTMAN DPM Jan 11, 2025 13:02
[2025-01-11] MEDS: LIDOCAINE 1% HCL (LOCAL ANESTH.) INJ 20ML MDV ONE (13:21)
--- NOTE | 2025-01-11 13:31 | ECG ---
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
--- NOTE | 2025-01-11 13:33 | DVHOP2 ---
Operative Report - 2 Report Details Date: 01/11/25 Preop Diagnosis: 1. Right foot osteomyelitis 2. Right foot abscess 3. Right foot cellulitis 4. Right foot diabetic ulcer Postop Diagnosis: Same as preop Surgeon: Marycruz Eastman MD Anesthesiologist: None Anesthesia: Local Consent: The patient was informed of the risks and benefits of the procedure. These include but are not limited to complications of anesthesia, postoperative infection, incomplete relief of symptoms, recurrence of symptoms, damage to blood vessels, nerves and tendons, deep venous thrombosis, pulmonary embolism and possible need for repeat surgery in the future. Complications: None Estimated Blood Loss: Minimal Fluids: See anesthesia Findings: Consistent with diagnosis Indications for Surgery: Worsening foot wound Name of Procedure Performed 1. Right foot I&D to bone (03545) Procedure Details Procedure Details: PRE-PROCEDURE INFORMATION: In the pre-op holding area, the extremity to be operated on was clearly marked and the patient verified correct laterality of the marking. The patient was transferred to the OR table and placed in a supine position. A timeout was performed in which identification of the correct patient, procedure, location, and materials was done. The right foot and leg were prepped and draped in normal sterile fashion. DESCRIPTION OF PROCEDURE: Attention was directed to the right where area of fluctuance was noted. An incision was made over this area and was deepened through blunt dissection. The incision was deepened to the level of abscess and bone. Care was taken to the dissection to avoid any neurovascular and tendinous structures. The incision was deepened to the bone, and the abscess appeared to be purulent fluid consistent with pus. The cortices of the bone was then removed with rongeur an all necrotic tissue. After the abscess was drained, the area was irrigated with 3 L normal saline using cysto tubing. Deep cultures were then obtained from the wound. The area was then inspected and any areas of tracking, especially along the tendons were also drained. The wound was packed with Betadine-soaked gauze and we will need to be closed at a later date. POSTOPERATIVE INFORMATION: The patient tolerated the above noted procedure and anesthesia well and was transferred to the PACU with vital signs stable, and vascular status intact with capillary refill intact to all digits. Patient will need PICC line and 6 weeks IV antibiotics. Patient will need multiple I and D's to be able to salvage the foot at this point. Condition Good Disposition Still a Patient Visit Coding Podiatry Date of Service if different f: Jan 11, 2025 Billing Provider: MARYCRUZ EASTMAN DPM Podiatry Common Visit Codes: PROCEDURE ONLY MARYCRUZ EASTMAN DPM Jan 11, 2025 13:33
--- NOTE | 2025-01-11 16:02 | DVHINCON2 ---
Date Seen: Jan 11, 2025 Referring Physician MD Akin Reason for Consultation Bilateral peripheral arterial disease History of Present Illness This is a Maldivian-speaking 64-year-old female patient who presents to the emergency room with chief complaint of nonhealing right foot wound. The patient reports that the right foot wound has been present for approximately three months, and appeared to keep getting worse which prompted her to come to the emergency room for further evaluation. Cardiology has been consulted at this time for findings of bilateral peripheral arterial disease. Initial twelve lead electrocardiogram found in patient's chart reveals a normal sinus rhythm with underlying right bundle branch block and diffuse T-wave inversion. No troponin levels drawn during this admission. The patient denies all cardiac symptoms including chest pain, shortness of breath, dizziness, palpitations. Significant past medical history includes congestive heart failure, presence of ICD (San), hypertension, dyslipidemia, end-stage renal disease on hemodialysis, thyroid disease, type 2 diabetes mellitus, and obesity. The patient follows up with laborer hoisting in the outpatient setting. Past Medical History Past medical history reviewed. No other significant than mentioned above. Past Surgical History ICD implantation on 01/30/2021 Family History: Diabetes mellitus G8 MOTHER G8 FATHER Family History Family history reviewed. Social History Denies the use of tobacco, alcohol or illicit drugs. Allergies: Coded Allergies: NO KNOWN ALLERGIES (Unverified , 01/09/25) Current Medications Current Medications Medications (Trade) Dose Ordered Sig/Seth Route PRN Reason Start Time Stop Time Status Last Admin Atorvastatin Calcium (Lipitor) 40 mg HS PO 01/10/25 22:00 01/10/25 21:04 Carvedilol (Coreg Tablet) 3.125 mg Q12HR PO 01/10/25 22:00 01/11/25 10:13 Levothyroxine Sodium (Synthroid Tablet) 125 mcg QAM@0600 PO 01/11/25 06:00 01/11/25 05:16 Morphine Sulfate 2 mg Q4HPRN PRN IV SEVERE PAIN (7-10 PAIN SCALE) 01/10/25 21:00 01/10/25 21:03 Review of Systems Constitutional: No symptom reported Ears, Nose, & Throat: No symptom reported Eyes: No symptom reported Neurological: No symptoms reported Pulmonary/Respiratory: No symptoms reported Cardiovascular: No symptom reported Gastrointestinal: No symptom reported Genitourinary: No symptom reported Musculoskeletal: No symptoms reported Skin: Nonhealing right foot wound Psychiatric: No symptom reported Endocrine: No symptom reported Hematologic/Lymphatic: No symptom reported Vital Signs Vital Signs Date Time Temp Pulse Resp B/P (MAP) Pulse Ox O2 Delivery O2 Flow Rate FiO2 01/11/25 13:30 76 125/69 (87) 98 01/11/25 13:00 97.9 18 97.9 01/11/25 08:00 Room Air* 0 21 Physical Exam General Appearance: Cooperative. Well-developed. Well-nourished. No acute distress. Pulmonary/Respiratory: Clear, bilateral breaths sounds. Cardiovascular/Chest: Regular rate and rhythm. Peripheral Pulses: 2+ Radial (R). 2+ Radial (L). Abdominal Exam: Normal bowel sounds. Ankle Exam: Negative ankle edema Lower extremities: Negative lower extremity edema Neuro/Mental Status: A/OX4, coherent. Thoughts/Psych: Normal thought pattern. Appropriate mood and affect. Good judgment and insight. Appearance: No acute distress. Skin Exam: Normal inspection. Normal color. Warm and dry. Right foot wound wrapped, status post I&D with podiatry Labs/Diagnostic Data Labs Test 01/10/25 11:31 01/10/25 09:18 01/09/25 23:40 Range/Units White Blood Count 10.9 H 4.4-10.8 10^3/uL Red Blood Count 3.19 L 4.0-5.20 10^6/uL Hemoglobin 10.3 L 12.2-16.2 g/dL Hematocrit 31.5 L 36.0-46.0 % Mean Corpuscular Volume 98.7 80.0-100.0 fL Mean Corpuscular Hemoglobin 32.2 H 28.0-32.0 pg Mean Corpuscular Hemoglobin Concent 32.7 32.0-36.0 g/dL Red Cell Distribution Width 15.2 H 11.8-14.3 % Platelet Count 187 140-450 10^3/uL Mean Platelet Volume 8.8 6.9-10.8 fL Neutrophils (%) (Auto) 90.0 H 37.0-80.0 % Lymphocytes (%) (Auto) 4.3 L 10.0-50.0 % Monocytes (%) (Auto) 4.6 0.0-12.0 % Eosinophils (%) (Auto) 0.6 0.0-7.0 % Basophils (%) (Auto) 0.5 0.0-2.0 % Neutrophils # (Auto) 9.8 H 1.6-8.6 10 ^3/uL Lymphocytes # (Auto) 0.5 0.4-5.4 10 ^3/uL Monocytes # (Auto) 0.5 0-1.3 10 ^3/uL Eosinophils # (Auto) 0.1 0-0.8 10 ^3/uL Basophils # (Auto) 0.1 0-0.2 10 ^3/uL Nucleated Red Blood Cells 0.0 % Prothrombin Time 12.6 H 9.3-11.8 sec Prothrombin Time INR 1.21 H 0.9-1.15 Activated Partial Thromboplast Time 32.4 24.5-34.5 SEC Sodium Level 140 136-145 mmol/L Potassium Level 3.7 3.5-5.1 mmol/L Chloride Level 102 98-107 mmol/L Carbon Dioxide Level 27 20-31 mmol/L Anion Gap 11 5-15 Blood Urea Nitrogen 22 9-23 mg/dL Creatinine 2.70 H 0.550-1.02 mg/dL Glomerular Filtration Rate Calc 19 >90 mL/min BUN/Creatinine Ratio 8.1 L 10.0-20.0 Serum Glucose 165 H 74-106 mg/dL Hemoglobin A1c 7.3 H <5.7 % A1C Calcium Level 8.9 8.7-10.4 mg/dL Phosphorus Level 3.4 2.4-5.1 mg/dL Magnesium Level 1.9 1.6-2.6 mg/dL Total Bilirubin 0.8 0.2-1.0 mg/dL Aspartate Amino Transferase (AST) 26 13-40 U/L Alanine Aminotransferase (ALT) 12 7-40 U/L Alkaline Phosphatase 135 H 46-116 U/L Total Protein 6.5 5.7-8.2 g/dL Albumin 3.5 3.2-4.8 g/dL Triglycerides Level 79 < 150 mg/dL Cholesterol Level 91 < 200 mg/dL LDL Cholesterol 35 < 100 mg/dL HDL Cholesterol 37 L 40-59 mg/dL Vitamin B12 Level > 4000 H 211-911 pg/mL Vitamin D 25-Hydroxy 63.2 30.0-100 ng/mL Thyroid Stimulating Hormone (TSH) 3.78 0.55-4.78 uIU/mL Urine Color Yellow Yellow Urine Clarity Turbid H Clear Urine pH 6.5 5.0-9.0 Urine Specific [place] 1.019 1.001-1.035 Urine Protein 2+ H Negative Urine Ketones Negative Negative Urine Blood Negative Negative /uL Urine Nitrite Negative Negative Urine Bilirubin Negative Negative Urine Urobilinogen Normal Negative mg/dL Urine Leukocyte Esterase Trace Negative /uL Urine RBC 7 0 - 4 /hpf Urine Microscopic WBC 4 0-5 /HPF Urine Squamous Epithelial Cells Few <5 /hpf Urine Bacteria None seen None Seen /hpf Urine Yeast (Budding) Moderate None Seen /hpf Urine Glucose 1+ H Normal mg/dL Urine Opiates Screen Neg NEGATIVE Urine Fentanyl Screen Neg NEGATIVE Urine Barbiturates Screen Neg NEGATIVE Urine Phencyclidine Screen Neg NEGATIVE Urine Amphetamines Screen Neg NEGATIVE Urine Benzodiazepines Screen Neg NEGATIVE Urine Cocaine Screen Neg NEGATIVE Urine Cannabinoids Screen Neg NEGATIVE Erythrocyte Sedimentation Rate 54 H 0-20 mm/hr Lactic Acid Level 1.3 0.4-2.0 mmol/L C-Reactive Protein High Sensitivity 4.44 H <1.0 mg/dL Hepatitis B Surface Antigen Negative Negative Hepatitis C Antibody Negative Negative Microbiology Date/Time Source Procedure Growth Status 01/10/25 04:20 Nose MRSA Screen - Final Complete 01/09/25 23:45 Blood Blood Culture - Preliminary NO GROWTH AFTER 24 HOURS OF INCUBATION. Resulted Assessment Peripheral arterial disease Chronic HFrEF, NYHA class II Presence of AICD (San) Hypertension Dyslipidemia Right great toe osteomyelitis Right foot cellulitis Right foot nonhealing diabetic ulcer Thyroid disease End-stage renal disease on hemodialysis Type 2 diabetes mellitus Obesity Plan/Recommendation We will continue with the following plan/recommendations (Dr. Sanchez): Case discussed with . reviewed lower extremity arterial duplex. Given the patient's clinical presentation with nonhealing wound and arterial duplex results, we will recommend for the patient to undergo a bilateral peripheral angiogram. This was discussed with the patient, her niece, and her daughter all at bedside. Procedure discussed in full detail, all questions answered. The patient is agreeable to undergo procedure. We will schedule the patient at soonest availability on 01/12/2025. In the meantime, we will proceed with obtaining a transthoracic echocardiogram to evaluate cardiac function. Continue with guideline directed medical therapy for CHF as tolerated. Avoid VIOLA/ARB/ARNI/MRA/SGLT2i given renal dysfunction. Continue with blood pressure control and statin therapy. Continue with close cardiac surveillance. Thank you for allowing us to care for this patient. Please call with any questions or concerns. Critical care time spent: 44 minutes This medical document was created using an electronic medical record system with voice recognition software and computerized dictation system. Although this document has been carefully reviewed, there might still be some phonetic and typographical errors. Occasional wrong-word or ``sound-alike substitutions may have occurred due to the inherent limitations of voice recognition software. These areas are purely typographical due to imperfections of the software programs and do not reflect any compromise in the patient's medical care. Please read the chart carefully and recognize, using context, where these substitutions have occurred. Plan discussed with: Patient NYHA Physical activity limitations: Class2(Slight)fatigue,sob (palpitatns, angina w activityv) Date of Service: Jan 11, 2025 Billing Provider: JENYN CASTELLANOS Cardiology Common Codes: [id number] INP/OBS CARE (High) Cardiology Consultation Codes: [id number] CONSULT <45MIN JENNY CASTELLANOS Jan 11, 2025 16:02
[2025-01-12] VITALS (15 sets, daily range): BP systolic 124–146; BP diastolic 44–85; PULSE 66–80; RESP 13–20; TEMP 97.6–98.9; O2SAT 90–100
[2025-01-12 06:31] LABS: Hematocrit 26.6 % (36.0-46.0); Hemoglobin 8.9 g/dL (12.2-16.2); Mean Corpuscular Hemoglobin 33.0 pg (28.0-32.0); Mean Corpuscular Volume 98.9 fL (80.0-100.0); Nucleated Red Blood Cells % 0.0 %
[2025-01-12 06:41] LABS: Potassium 4.0 mmol/L (3.5-5.1); Sodium 136 mmol/L (136-145)
[2025-01-12 06:42] LABS: Anion Gap 15 (5-15); Carbon Dioxide 23 mmol/L (20-31)
[2025-01-12 06:47] LABS: BUN/Creatinine Ratio 8.7 (10.0-20.0)
[2025-01-12 06:55] LABS: Blood Urea Nitrogen 34 mg/dL (9-23); Calcium 8.7 mg/dL (8.7-10.4); Chloride 98 mmol/L (98-107); Glucose 166 mg/dL (74-106)
[2025-01-12] MEDS: SODIUM CHL 0.9% 1000 ML BAG XX ONE (07:00)
--- NOTE | 2025-01-12 10:20 | DVHPN2 ---
Reviewed: Care Plan Changes from previous H/P or p: No Changes Objective Vitals Vital Signs Date Time Temp Pulse Resp B/P (MAP) Pulse Ox O2 Delivery O2 Flow Rate FiO2 01/12/25 09:00 98.6 66 18 139/78 (98) 92 98.6 01/11/25 20:26 Room Air* 0 21 Intake/Output Intake and Output 01/12/25 07:00 Intake Total 1625 ml Output Total 203 ml Balance 1422 ml Intake Oral 725 ml IV Total 900 ml Output Urine Total 203 ml # Bowel Movements 1 Medications Current Medications Medications Dose Ordered Sig/Seth Route Start Time Stop Time Status Last Admin Dose Admin Acetaminophen 325 mg Q4HP PRN PO 01/10/25 00:30 Ondansetron HCl 4 mg Q4HP PRN IV 01/10/25 00:30 01/12/25 02:06 4 MG Enoxaparin Sodium 40 mg DAILY SC 01/10/25 10:00 01/11/25 10:14 40 MG Linezolid 300 ml @ 150 mls/hr Q12HR IV 01/10/25 10:00 01/11/25 21:20 150 MLS/HR Sodium Chloride 1,000 ml @ 60 mls/hr [id number] IV 01/10/25 03:30 01/10/25 05:13 60 MLS/HR Piperacillin Sod/ Tazobactam Sod 100 ml @ 25 mls/hr Q8H IV 01/10/25 13:15 01/12/25 05:07 25 MLS/HR Atorvastatin Calcium 40 mg HS PO 01/10/25 22:00 01/11/25 21:21 40 MG Carvedilol 3.125 mg Q12HR PO 01/10/25 22:00 01/11/25 21:20 3.125 MG Levothyroxine Sodium 125 mcg QAM@0600 PO 01/11/25 06:00 01/12/25 05:07 125 MCG Morphine Sulfate 2 mg Q4HPRN PRN IV 01/10/25 21:00 01/11/25 19:29 2 MG Laboratory Results Laboratory Tests 01/12/25 05:35 Chemistry Test 01/12/25 05:35 Calcium Level 8.7 mg/dL (8.7-10.4) Urinalysis Test 01/10/25 09:18 Urine Color Yellow (Yellow) Urine Clarity Turbid (Clear) H Urine pH 6.5 (5.0-9.0) Urine Specific [place] 1.019 (1.001-1.035) Urine Protein 2+ (Negative) H Urine Ketones Negative (Negative) Urine Blood Negative /uL (Negative) Urine Nitrite Negative (Negative) Urine Bilirubin Negative (Negative) Urine Urobilinogen Normal mg/dL (Negative) Urine Leukocyte Esterase Trace /uL (Negative) Urine RBC 7 /hpf (0 - 4) Urine Microscopic WBC 4 /HPF (0-5) Urine Squamous Epithelial Cells Few /hpf (<5) Urine Bacteria None seen /hpf (None Seen) Urine Yeast (Budding) Moderate /hpf (None Seen) Urine Glucose 1+ mg/dL (Normal) H Microbiology Microbiology Date/Time Source Procedure Growth Status 01/10/25 04:20 Nose MRSA Screen - Final Complete 01/09/25 23:45 Blood Blood Culture - Preliminary NO GROWTH AFTER 48 HOURS OF INCUBATION. Resulted Labs and/or images reviewed: Labs reviewed by me, Image(s) reviewed by me Assessment/Plan Assessment/Plan Sepsis Secondary to right foot infection Nonhealing chronic right foot diabetic ulcer Osteomyelitis right 1st toe: Zosyn Zyvox, consult for podiatric Dr. Crowder appreciated, blood cultures negative Bilateral peripheral arterial disease consult for Dr Sanchez appreciated, planning for peripheral angiogram Uncontrolled Diabetes: Insulin sliding scale ESRD on hemodialysis Anxiety Hypothyroidism Hypertension Hypercholesterolemia CHF exacerbation History of ICD placement: Cardiology consult pending for clearance for MRI Time spent 50 minutes Advanced care planning time 20 minutes Patient is full code Patient lives with her niece and memory care director Janeen in [place]; Daughter and POA Cierra who lives in [place] [phone] at bedside: She takes decisions for her mom. Plan discussed with: Patient My Orders Orders - CANDIDA GALLEGOS MD Procedure Category Date Status Time * Cardiology Consult CONS 01/11/25 Transmitted 12:40 Date of Service: Jan 12, 2025 Billing Provider: CANDIDA GALLEGOS MD Common Visit Codes: [id number] CARE 30-74 MIN CANDIDA GALLEGOS MD Jan 12, 2025 10:20
[2025-01-12] MEDS: HYDROmorphone HCL 2 MG/ML VL/or syr IV PRN (10:48)
[2025-01-12] MEDS: HEPARIN IN NS 1000Units/500mL 1,500 ML ONE (11:52)
[2025-01-12] MEDS: ANGIOMAX 250 MG VIAL IV ONE (12:39)
[2025-01-12] MEDS: LIDOCAINE 2%HCL (LOCAL ANESTH.) INJ 20ML MDV ONE (12:39)
[2025-01-12] MEDS: MIDAZOLAM HCL 2MG/2ML 2ml VIAL (1mg/ml) ONE (12:39)
[2025-01-12] MEDS: SODIUM CHL 0.9% 50 ML ONE (12:39)
[2025-01-12] MEDS: fentaNYL CITRATE 100 MCG/2 ML VL ONE (12:39)
[2025-01-12] MEDS: IODIXANOL 320MG/ML 100ML BTL IV ONE (13:44)
[2025-01-12] MEDS: CLOPIDOGREL BISULFATE 75 MG TAB ONE (13:52)
--- NOTE | 2025-01-12 14:39 | DVHOP2 ---
Operative Report - 2 Report Details Date: 01/12/25 Preop Diagnosis: Peripheral vascular disease Postop Diagnosis: Peripheral vascular disease Surgeon: Tigre Sanchez MD Anesthesiologist: Conscious sedation Anesthesia: Mac, Local Consent: The patient was informed of the risks and benefits of the procedure. These include but are not limited to complications of anesthesia, postoperative infection, incomplete relief of symptoms, recurrence of symptoms, damage to blood vessels, nerves and tendons, deep venous thrombosis, pulmonary embolism and possible need for repeat surgery in the future. Complications: No complications Findings: Peripheral vascular disease Indications for Surgery: Ischemic toes Name of Procedure Performed Peripheral angiographic evaluation bilateral lower extremities. INTERNET MEDIA PLANNER of posterior tibial artery. Atherotomy of posterior tibial artery. Procedure Details Procedure Details: Prior full informed consent obtained the patient was prepped and draped in usual fashion and a sheath was placed in left femoral artery under fluoroscopic and ultrasound guidance. We then performed angiographic evaluation of the left lower extremity followed by placement of a destination catheter over an advantage wire contralaterally into the left iliac. Prior to this a rim catheter was used to perform an angiographic evaluation. After placing the destination sheath contralaterally we positioned it into the distal SFA and popliteal artery. We then performed angiographic evaluation of the lower extremity with digital subtraction angiography. Several views were obtained. We then performed INTERNET [employer]IA PLANNER and atherotomy of the posterior tibial artery. Runoff was performed to the level of the foot. No complications. Angiographic evaluation of bilateral iliacs were normal. The left superficial femoral artery and profunda are normal. Left popliteal is normal. There is patency of the anterior tibial artery. Diminished load of the posterior tibial and good flow through the peroneal artery of the left lower extremity to the level of the ankle. The right superficial femoral artery is within normal limits. The right femoral and profunda are within normal limits. The popliteal artery is normal. The tibioperoneal trunk has mild plaquing. The anterior tibial artery is occluded at its mid section. The peroneal artery is a medium to large vessel with a proximal 75-80% stenosis. There was a distal 60-70% stenosis. The mid posterior tibial artery has a 50-60% stenosis however flow is noted from the peroneal and the posterior tibial to the level of the plantar arch and right foot. The distal digital vessels have significantly reduced flow. Angioplasty was performed for which the destination catheter as mentioned was placed distally into the popliteal of the right lower extremity. We then proceeded to place a choice PT extra-support wire into the peroneal artery and this was followed by placing a AngioSculpt balloon 20 mm x 3.5 mm in diameter. Two inflations were performed at [id number] atmospheres with a notable improvement in the lesion previously mentioned in the peroneal artery. There was a small linear dissection was not flow limiting. It was felt to delineate notable improvement in circulation and flow to the peroneal artery. We then removed the hardware and placed a Perclose device of the left femoral artery. Patient tolerated the procedure well there were no complications. Impression successful INTER[employer]IA PL[employer]NER and atherotomy of the right peroneal artery. Diminished loaded with a digital vessels of the right toe however good flow to the foot and plantar arch via the peroneal and posterior tibial artery of the right lower extremity. Recommendations: Continue dual antiplatelet therapy and risk factor modification. Condition Good Disposition Still a Patient Date of Service: Jan 12, 2025 Billing Provider: TIGRE SANCHEZ Sr., MD Cardiology Common Codes: [id number] INP/OBS CARE (High) Peripheral Add ons: [id number] TIBIAL/PERON ARTERY, [id number] AND ANGIOPLASTY TIGRE SANCHEZ Sr., MD Jan 12, 2025 14:39
--- NOTE | 2025-01-12 17:08 | DVHSR ---
APPROVED REPORT EXAM: Two-dimensional and M-mode echocardiogram with Doppler and color Doppler. Blood Pressure: 138/75 mmHg INDICATION Pre-Op Surgery/Intervention Pacemaker: RISK FACTORS Height: 5'2", Weight: 141 DIMENSIONS LVDd6.2 (3.8-5.7cm)LA (2D)4.3 (1.9-4.0cm)Aortic Root3.3 (2.0-3.7cm) LVDs5.5 (2.5-4.0cm)LA (MM) (1.9-4.0cm)Aortic Cusp Exc1.1 (1.5-2.0cm) EF (%) 25.0 (55-70%)Rt. Atrium4.8 (1.9-4.0cm)Asc. Aorta cm IVSd1.3 (0.7-1.1cm)RV (D)4.7 (1.8-2.4cm) PWd1.3 (0.7-1.1cm) Mitral Valve MitralMitral Stenosis E wave1.31m/sMV Mean GR.mmHg A wave0.72m/sMV Peak GR.mmHg E/A ratio1.82D MVAcm2 DECEL [id number] 1/2 Timems Aortic Valve Aortic ValveAortic Stenosis V10.52m/Silvio Mean GR.6mmHg V21.66m/Silvio Peak GR.11mmHg LVOT Diameter2.3 (1.8-2.4cm)Doppler AVA1.30cm2 Pulmonic Valve V20.78m/s Tricuspid Valve TR Velocity3.83m/s [id number] Conclusion Technically good study. Sinus rhythm. Biventricular and biatrial enlargement. Mild dilation of the sinuses of Valsalva. Moderate mitral annular calcification and thickening of the posterior mitral leaflet with decreased m obility of the posterior mitral leaflet. Diminished mobility of the aortic leaflets secondary to poo r cardiac output. Mild calcification and thickening of the aortic leaflets. The tricuspid and pulmo stacey or structurally normal. Left ventricular systolic function is markedly diminished. EF is about 20% with global hypokinesis. RV function is also diminished at about 30%. Moderate mitral regurgitation. [id number] tricuspid regurgitation. There is pulmonary hyper tension with a right ventricular systolic pressure of 65-70 mmHg. Moderate pulmonic insufficiency. No pericardial effusion masses or vegetations. Pacing lead noted in RV.
[2025-01-12] MEDS: LIDOCAINE 1% (LOCAL ANESTH.) PF 5ml SDV ID ONE (17:15)
--- NOTE | 2025-01-12 19:23 | DVHPN2 ---
Progress Note - Dictate Date Seen: Jan 12, 2025 Medical Necessity Reason Pt with a Central, PICC or Fol: No Subjective no new symptoms vital signs Vital Sign Date Time Temp Pulse Resp B/P (MAP) Pulse Ox O2 Delivery O2 Flow Rate FiO2 01/12/25 16:32 98.4 75 20 141/85 (103) 100 98.4 01/12/25 08:30 Room Air* 0 21 Total Intake and Output 01/11/25 01/11/25 01/12/25 15:00 23:00 07:00 Intake Total 320 ml 705 ml 600 ml Output Total 3 ml 200 ml Balance 320 ml 702 ml 400 ml medications Current Medications Medications Dose Ordered Sig/Seth Route Start Time Stop Time Status Last Admin Dose Admin Acetaminophen 325 mg Q4HP PRN PO 01/10/25 00:30 Ondansetron HCl 4 mg Q4HP PRN IV 01/10/25 00:30 01/12/25 02:06 4 MG Enoxaparin Sodium 40 mg DAILY SC 01/10/25 10:00 01/11/25 10:14 40 MG Linezolid 300 ml @ 150 mls/hr Q12HR IV 01/10/25 10:00 01/12/25 10:04 150 MLS/HR Sodium Chloride 1,000 ml @ 60 mls/hr [id number] IV 01/10/25 03:30 01/10/25 05:13 60 MLS/HR Piperacillin Sod/ Tazobactam Sod 100 ml @ 25 mls/hr Q8H IV 01/10/25 13:15 01/12/25 05:07 25 MLS/HR Atorvastatin Calcium 40 mg HS PO 01/10/25 22:00 01/11/25 21:21 40 MG Carvedilol 3.125 mg Q12HR PO 01/10/25 22:00 01/12/25 10:06 3.125 MG Levothyroxine Sodium 125 mcg QAM@0600 PO 01/11/25 06:00 01/12/25 05:07 125 MCG Hydromorphone HCl 0.5 mg Q6HPRN PRN IV 01/12/25 10:30 01/12/25 10:48 0.5 MG Clopidogrel Bisulfate 75 mg DAILY PO 01/13/25 10:00 Aspirin 81 mg DAILY PO 01/13/25 10:00 Sodium Chloride 10 ml QSHIFT@10,22 IV 01/12/25 22:00 objective Gen: NAD HEENT: NC,AT Lungs: CTA b/l Cardiac: RRR, no murmur Abd: soft, no tenderness Ext: no edema on legs Neuro: no focal deficits laboratory and microbiology Laboratory Tests 01/12/25 05:35 Test 01/12/25 05:35 Range/Units Serum Glucose 166 H 74-106 mg/dL Assessment/Plan ESRD on HD Right foot osteomyelitis DM HTN hypothyroidism Leukocytosis Anemia of CKD Hyperphosphatemia Secondary hyperparathyroidism Plan: s/p HD today , net UF 2L Next HD on Wednesday Will continue HD on MWF schedule continue IV antibiotics per primary team Continue Coreg 3.125 mg PO BID KEVIN post HD as needed , goal Hb: 10-11 g/dl Dietary Evaluation Review Comments: Nutrition Recommendation 1) CCHO 60gm + renal standard diet 2) Nephro-santosh 1 tab daily 3) Lexx 1 pk daily 4) Monitor PO intake, lab values, weight trend, and I/O Expected Outcomes/Goals: To meet >75% estimated needs Wound to improve Fu 3-5 days Plan discussed with: Patient DEVON GARSIA MD Jan 12, 2025 19:23
[2025-01-12] MEDS: SODIUM CHLOR 0.9% PF (SALINE LOCK) 10ML VIAL/SYR IV SCH (21:34)
[2025-01-13] VITALS (8 sets, daily range): BP systolic 124–152; BP diastolic 55–95; PULSE 5–80; RESP 16–18; TEMP 97.7–99; O2SAT 94–96
--- NOTE | 2025-01-13 06:59 | DVHPN2 ---
Progress Note - Dictate Date Seen: Jan 13, 2025 Medical Necessity Reason Pt with a Central, PICC or Fol: No Subjective no new symptoms vital signs Vital Sign Date Time Temp Pulse Resp B/P (MAP) Pulse Ox O2 Delivery O2 Flow Rate FiO2 01/13/25 04:47 98.9 75 16 152/59 (90) 94 98.9 01/12/25 20:15 Room Air* 0 21 Total Intake and Output 01/12/25 01/12/25 01/13/25 15:00 23:00 07:00 Intake Total 400 ml 0 ml 1100 ml Balance 400 ml 0 ml 1100 ml medications Current Medications Medications Dose Ordered Sig/Seth Route Start Time Stop Time Status Last Admin Dose Admin Acetaminophen 325 mg Q4HP PRN PO 01/10/25 00:30 Ondansetron HCl 4 mg Q4HP PRN IV 01/10/25 00:30 01/12/25 02:06 4 MG Enoxaparin Sodium 40 mg DAILY SC 01/10/25 10:00 01/11/25 10:14 40 MG Linezolid 300 ml @ 150 mls/hr Q12HR IV 01/10/25 10:00 01/12/25 21:34 150 MLS/HR Sodium Chloride 1,000 ml @ 60 mls/hr [id number] IV 01/10/25 03:30 01/10/25 05:13 60 MLS/HR Piperacillin Sod/ Tazobactam Sod 100 ml @ 25 mls/hr Q8H IV 01/10/25 13:15 01/13/25 05:23 25 MLS/HR Atorvastatin Calcium 40 mg HS PO 01/10/25 22:00 01/12/25 21:33 40 MG Carvedilol 3.125 mg Q12HR PO 01/10/25 22:00 01/12/25 21:33 3.125 MG Levothyroxine Sodium 125 mcg QAM@0600 PO 01/11/25 06:00 01/13/25 05:23 125 MCG Hydromorphone HCl 0.5 mg Q6HPRN PRN IV 01/12/25 10:30 01/12/25 10:48 0.5 MG Clopidogrel Bisulfate 75 mg DAILY PO 01/13/25 10:00 Aspirin 81 mg DAILY PO 01/13/25 10:00 Sodium Chloride 10 ml QSHIFT@10,22 IV 01/12/25 22:00 01/12/25 21:34 10 ML objective Gen: NAD HEENT: NC,AT Lungs: CTA b/l Cardiac: RRR, no murmur Abd: soft, no tenderness Ext: no edema on legs Neuro: no focal deficits laboratory and microbiology Laboratory Tests 01/12/25 05:35 Test 01/12/25 05:35 Range/Units Serum Glucose 166 H 74-106 mg/dL Assessment/Plan ESRD on HD Right foot osteomyelitis DM HTN hypothyroidism Leukocytosis Anemia of CKD Hyperphosphatemia Secondary hyperparathyroidism Plan: s/p HD Wednesday , net UF 2L Next HD on Wednesday Will continue HD on MWF schedule continue IV antibiotics per primary team Continue Coreg 3.125 mg PO BID KEVIN post HD as needed , goal Hb: 10-11 g/dl Dietary Evaluation Review Comments: Nutrition Recommendation 1) CCHO 60gm + renal standard diet 2) Nephro-santosh 1 tab daily 3) Lexx 1 pk daily 4) Monitor PO intake, lab values, weight trend, and I/O Expected Outcomes/Goals: To meet >75% estimated needs Wound to improve Fu 3-5 days Plan discussed with: Patient DEVON GARSIA MD Jan 13, 2025 06:58
--- NOTE | 2025-01-13 07:03 | DVHPN2 ---
Progress Note - Dictate Date Seen: Jan 13, 2025 Medical Necessity Reason Pt with a Central, PICC or Fol: No Subjective no new symptoms vital signs Vital Sign Date Time Temp Pulse Resp B/P (MAP) Pulse Ox O2 Delivery O2 Flow Rate FiO2 01/13/25 04:47 98.9 75 16 152/59 (90) 94 98.9 01/12/25 20:15 Room Air* 0 21 Total Intake and Output 01/12/25 01/12/25 01/13/25 15:00 23:00 07:00 Intake Total 400 ml 0 ml 1100 ml Balance 400 ml 0 ml 1100 ml medications Current Medications Medications Dose Ordered Sig/Seth Route Start Time Stop Time Status Last Admin Dose Admin Acetaminophen 325 mg Q4HP PRN PO 01/10/25 00:30 Ondansetron HCl 4 mg Q4HP PRN IV 01/10/25 00:30 01/12/25 02:06 4 MG Enoxaparin Sodium 40 mg DAILY SC 01/10/25 10:00 01/11/25 10:14 40 MG Linezolid 300 ml @ 150 mls/hr Q12HR IV 01/10/25 10:00 01/12/25 21:34 150 MLS/HR Sodium Chloride 1,000 ml @ 60 mls/hr [id number] IV 01/10/25 03:30 01/10/25 05:13 60 MLS/HR Piperacillin Sod/ Tazobactam Sod 100 ml @ 25 mls/hr Q8H IV 01/10/25 13:15 01/13/25 05:23 25 MLS/HR Atorvastatin Calcium 40 mg HS PO 01/10/25 22:00 01/12/25 21:33 40 MG Carvedilol 3.125 mg Q12HR PO 01/10/25 22:00 01/12/25 21:33 3.125 MG Levothyroxine Sodium 125 mcg QAM@0600 PO 01/11/25 06:00 01/13/25 05:23 125 MCG Hydromorphone HCl 0.5 mg Q6HPRN PRN IV 01/12/25 10:30 01/12/25 10:48 0.5 MG Clopidogrel Bisulfate 75 mg DAILY PO 01/13/25 10:00 Aspirin 81 mg DAILY PO 01/13/25 10:00 Sodium Chloride 10 ml QSHIFT@10,22 IV 01/12/25 22:00 01/12/25 21:34 10 ML objective Gen: NAD HEENT: NC,AT Lungs: CTA b/l Cardiac: RRR, no murmur Abd: soft, no tenderness Ext: no edema on legs Neuro: no focal deficits laboratory and microbiology Laboratory Tests 01/12/25 05:35 Test 01/12/25 05:35 Range/Units Serum Glucose 166 H 74-106 mg/dL Assessment/Plan ESRD on HD Right foot osteomyelitis DM HTN hypothyroidism Leukocytosis Anemia of CKD Hyperphosphatemia Secondary hyperparathyroidism Plan: s/p HD Wednesday, net UF 2L Next HD on Wednesday Will continue HD on MWF schedule Continue IV antibiotics per primary team Continue Coreg 3.125 mg PO BID KEVIN post HD as needed , goal Hb: 10-11 g/dl Dietary Evaluation Review Comments: Nutrition Recommendation 1) CCHO 60gm + renal standard diet 2) Nephro-santosh 1 tab daily 3) Lexx 1 pk daily 4) Monitor PO intake, lab values, weight trend, and I/O Expected Outcomes/Goals: To meet >75% estimated needs Wound to improve Fu 3-5 days Plan discussed with: Patient DEVON GARSIA MD Jan 13, 2025 07:03
[2025-01-13] MEDS: CLOPIDOGREL BISULFATE 75 MG TAB PO SCH (09:09)
--- NOTE | 2025-01-13 11:19 | DVHPN2 ---
Reviewed: Care Plan Changes from previous H/P or p: No Changes Objective Vitals Vital Signs Date Time Temp Pulse Resp B/P (MAP) Pulse Ox O2 Delivery O2 Flow Rate FiO2 01/13/25 10:08 76 129/74 01/13/25 08:47 99.0 16 94 99.0 01/13/25 08:00 Room Air* 0 21 Intake/Output Intake and Output 01/13/25 07:00 Intake Total 1500 ml Balance 1500 ml Intake Oral 700 ml IV Total 800 ml # Voids 1 # Bowel Movements 1 Medications Current Medications Medications Dose Ordered Sig/Seth Route Start Time Stop Time Status Last Admin Dose Admin Acetaminophen 325 mg Q4HP PRN PO 01/10/25 00:30 Ondansetron HCl 4 mg Q4HP PRN IV 01/10/25 00:30 01/12/25 02:06 4 MG Enoxaparin Sodium 40 mg DAILY SC 01/10/25 10:00 01/13/25 09:10 40 MG Linezolid 300 ml @ 150 mls/hr Q12HR IV 01/10/25 10:00 01/13/25 09:10 150 MLS/HR Sodium Chloride 1,000 ml @ 60 mls/hr [id number] IV 01/10/25 03:30 01/10/25 05:13 60 MLS/HR Piperacillin Sod/ Tazobactam Sod 100 ml @ 25 mls/hr Q8H IV 01/10/25 13:15 01/13/25 05:23 25 MLS/HR Atorvastatin Calcium 40 mg HS PO 01/10/25 22:00 01/12/25 21:33 40 MG Carvedilol 3.125 mg Q12HR PO 01/10/25 22:00 01/13/25 09:08 3.125 MG Levothyroxine Sodium 125 mcg QAM@0600 PO 01/11/25 06:00 01/13/25 05:23 125 MCG Hydromorphone HCl 0.5 mg Q6HPRN PRN IV 01/12/25 10:30 01/12/25 10:48 0.5 MG Clopidogrel Bisulfate 75 mg DAILY PO 01/13/25 10:00 01/13/25 09:09 75 MG Aspirin 81 mg DAILY PO 01/13/25 10:00 01/13/25 09:09 81 MG Sodium Chloride 10 ml QSHIFT@10,22 IV 01/12/25 22:00 01/13/25 09:09 10 ML Laboratory Results Laboratory Tests 01/12/25 05:35 Urinalysis Test 01/10/25 09:18 Urine Color Yellow (Yellow) Urine Clarity Turbid (Clear) H Urine pH 6.5 (5.0-9.0) Urine Specific [place] 1.019 (1.001-1.035) Urine Protein 2+ (Negative) H Urine Ketones Negative (Negative) Urine Blood Negative /uL (Negative) Urine Nitrite Negative (Negative) Urine Bilirubin Negative (Negative) Urine Urobilinogen Normal mg/dL (Negative) Urine Leukocyte Esterase Trace /uL (Negative) Urine RBC 7 /hpf (0 - 4) Urine Microscopic WBC 4 /HPF (0-5) Urine Squamous Epithelial Cells Few /hpf (<5) Urine Bacteria None seen /hpf (None Seen) Urine Yeast (Budding) Moderate /hpf (None Seen) Urine Glucose 1+ mg/dL (Normal) H Microbiology Microbiology Date/Time Source Procedure Growth Status 01/10/25 09:18 Voided Urine Urine Culture - Preliminary Resulted 01/10/25 04:20 Nose MRSA Screen - Final Complete 01/09/25 23:45 Blood Blood Culture - Preliminary NO GROWTH AFTER 72 HOURS OF INCUBATION. Resulted Labs and/or images reviewed: Labs reviewed by me, Image(s) reviewed by me Assessment/Plan Assessment/Plan Sepsis Secondary to right foot infection Nonhealing chronic right foot diabetic ulcer Osteomyelitis right 1st toe: Zosyn Zyvox, consult for podiatric Dr. Crowder appreciated, status post incision and drainage to the bone by the etcher aircraft Dr Crowder, blood cultures negative Bilateral peripheral arterial disease consult for Dr Sanchez appreciated, planning for peripheral angiogram Uncontrolled Diabetes: Insulin sliding scale ESRD on hemodialysis Anxiety Hypothyroidism Hypertension Hypercholesterolemia CHF exacerbation History of ICD placement: Time spent 50 minutes Advanced care planning time 20 minutes Patient is full code Patient lives with her niece and skin care specialist Janeen in [place]; Daughter and POA Cierra who lives in [place] [phone] at bedside: She takes decisions for her mom. Patient needs IV antibiotics through PICC line for six weeks per Dr Crowder Plan discussed with: Patient My Orders Orders - CANDIDA GALLEGOS MD Procedure Category Date Status Time Nursing Protocol Picc ROB 01/12/25 In Process 17:05 Change Dressing Prn ROB 01/12/25 In Process 17:05 PICC BD 01/12/25 Transmitted 17:05 Sodium Chloride Lock PHA 01/12/25 In Process (Saline Lock Ns) 22:00 Do Not Use Picc For [facility] 01/12/25 In Process Blood Cult 17:05 May Draw Blood From [facility] 01/12/25 In Process Picc 17:05 Ok To Use Picc [facility] 01/12/25 In Process 17:05 Change Picc Dressing [facility] 01/12/25 In Process Q7 Days 17:05 Date of Service: Jan 13, 2025 Billing Provider: CANDIDA GALLEGOS MD Common Visit Codes: [id number] INP/OBS CARE(HIGH) CANDIDA GALLEGOS MD Jan 13, 2025 11:19
--- NOTE | 2025-01-13 17:37 | DVHPN2 ---
Subjective No cardiac events reported No shortness of breath or chest pain Reviewed: Care Plan Changes from previous H/P or p: No Changes Objective Vitals Vital Signs Date Time Temp Pulse Resp B/P (MAP) Pulse Ox O2 Delivery O2 Flow Rate FiO2 01/13/25 16:57 98.7 72 16 124/55 (78) 96 98.7 01/13/25 08:00 Room Air* 0 21 Intake/Output Intake and Output 01/13/25 07:00 Intake Total 1500 ml Balance 1500 ml Intake Oral 700 ml IV Total 800 ml # Voids 1 # Bowel Movements 1 Medications Current Medications Medications Dose Ordered Sig/Seth Route Start Time Stop Time Status Last Admin Dose Admin Acetaminophen 325 mg Q4HP PRN PO 01/10/25 00:30 Ondansetron HCl 4 mg Q4HP PRN IV 01/10/25 00:30 01/12/25 02:06 4 MG Enoxaparin Sodium 40 mg DAILY SC 01/10/25 10:00 01/13/25 09:10 40 MG Linezolid 300 ml @ 150 mls/hr Q12HR IV 01/10/25 10:00 01/13/25 09:10 150 MLS/HR Sodium Chloride 1,000 ml @ 60 mls/hr [id number] IV 01/10/25 03:30 01/13/25 14:54 60 MLS/HR Piperacillin Sod/ Tazobactam Sod 100 ml @ 25 mls/hr Q8H IV 01/10/25 13:15 01/13/25 12:42 25 MLS/HR Atorvastatin Calcium 40 mg HS PO 01/10/25 22:00 01/12/25 21:33 40 MG Carvedilol 3.125 mg Q12HR PO 01/10/25 22:00 01/13/25 09:08 3.125 MG Levothyroxine Sodium 125 mcg QAM@0600 PO 01/11/25 06:00 01/13/25 05:23 125 MCG Hydromorphone HCl 0.5 mg Q6HPRN PRN IV 01/12/25 10:30 01/12/25 10:48 0.5 MG Clopidogrel Bisulfate 75 mg DAILY PO 01/13/25 10:00 01/13/25 09:09 75 MG Aspirin 81 mg DAILY PO 01/13/25 10:00 01/13/25 09:09 81 MG Sodium Chloride 10 ml QSHIFT@10,22 IV 01/12/25 22:00 01/13/25 09:09 10 ML Laboratory Results Laboratory Tests 01/12/25 05:35 Urinalysis Test 01/10/25 09:18 Urine Color Yellow (Yellow) Urine Clarity Turbid (Clear) H Urine pH 6.5 (5.0-9.0) Urine Specific [place] 1.019 (1.001-1.035) Urine Protein 2+ (Negative) H Urine Ketones Negative (Negative) Urine Blood Negative /uL (Negative) Urine Nitrite Negative (Negative) Urine Bilirubin Negative (Negative) Urine Urobilinogen Normal mg/dL (Negative) Urine Leukocyte Esterase Trace /uL (Negative) Urine RBC 7 /hpf (0 - 4) Urine Microscopic WBC 4 /HPF (0-5) Urine Squamous Epithelial Cells Few /hpf (<5) Urine Bacteria None seen /hpf (None Seen) Urine Yeast (Budding) Moderate /hpf (None Seen) Urine Glucose 1+ mg/dL (Normal) H Microbiology Microbiology Date/Time Source Procedure Growth Status 01/10/25 09:18 Voided Urine Urine Culture - Preliminary Resulted 01/10/25 04:20 Nose MRSA Screen - Final Complete 01/09/25 23:45 Blood Blood Culture - Preliminary NO GROWTH AFTER 72 HOURS OF INCUBATION. Resulted Assessment/Plan Assessment/Plan s/p PSYCHIATRIC AIDE and atherotomy of the right peroneal artery Peripheral arterial disease Chronic HFrEF, NYHA class II Presence of AICD ([place]) Hypertension Dyslipidemia Right great toe osteomyelitis Right foot cellulitis Right foot nonhealing diabetic ulcer Thyroid disease End-stage renal disease on hemodialysis Type 2 diabetes mellitus Obesity Plan/Recommendation (Dr. Sanchez): * S/p PSYCHIATRIC AIDE and atherotomy of the right peroneal artery. Diminished loaded with a digital vessels of the right toe however good flow to the foot and plantar arch via the peroneal and posterior tibial artery of the right lower extremity. Continue dual antiplatelet therapy, statins, and risk factor modification This medical document was created using an electronic medical record system with voice recognition software and computerized dictation system. Although this document has been carefully reviewed, there might still be some phonetic and typographical errors. Occasional wrong-word or ``sound-alike substitutions may have occurred due to the inherent limitations of voice recognition software. These areas are purely typographical due to imperfections of the software programs and do not reflect any compromise in the patient's medical care. Please read the chart carefully and recognize, using context, where these substitutions have occurred. Plan discussed with: Patient Plan discussed with: Patient, Daughter Date of Service: Jan 13, 2025 Billing Provider: TIGRE SANCHEZ Sr., MD Common Visit Codes: CONSULT ONLY Consultation Codes: [id number] CONSULT <45MIN ANA AVELAR RETIREMENT CONSULTANT Jan 13, 2025 17:37
[2025-01-14] VITALS (7 sets, daily range): BP systolic 124–152; BP diastolic 44–83; PULSE 66–79; RESP 16–19; TEMP 97.4–98.1; O2SAT 96–100
--- NOTE | 2025-01-14 11:38 | DVHPN2 ---
Reviewed: Care Plan Changes from previous H/P or p: No Changes Objective Vitals Vital Signs Date Time Temp Pulse Resp B/P (MAP) Pulse Ox O2 Delivery O2 Flow Rate FiO2 01/14/25 09:44 75 149/83 01/14/25 09:00 97.5 18 100 97.5 01/14/25 08:15 Nasal Cannula* 2 28 Intake/Output Intake and Output 01/14/25 07:00 Intake Total 3040 ml Balance 3040 ml Intake Oral 500 ml IV Total 1600 ml Other 940 ml # Voids 3 # Bowel Movements 4 Medications Current Medications Medications Dose Ordered Sig/Seth Route Start Time Stop Time Status Last Admin Dose Admin Acetaminophen 325 mg Q4HP PRN PO 01/10/25 00:30 Ondansetron HCl 4 mg Q4HP PRN IV 01/10/25 00:30 01/12/25 02:06 4 MG Enoxaparin Sodium 40 mg DAILY SC 01/10/25 10:00 01/14/25 09:43 40 MG Linezolid 300 ml @ 150 mls/hr Q12HR IV 01/10/25 10:00 01/14/25 09:43 150 MLS/HR Sodium Chloride 1,000 ml @ 60 mls/hr [id number] IV 01/10/25 03:30 01/13/25 21:49 60 MLS/HR Piperacillin Sod/ Tazobactam Sod 100 ml @ 25 mls/hr Q8H IV 01/10/25 13:15 01/14/25 05:04 25 MLS/HR Atorvastatin Calcium 40 mg HS PO 01/10/25 22:00 01/13/25 21:48 40 MG Carvedilol 3.125 mg Q12HR PO 01/10/25 22:00 01/14/25 09:44 3.125 MG Levothyroxine Sodium 125 mcg QAM@0600 PO 01/11/25 06:00 01/14/25 05:05 125 MCG Hydromorphone HCl 0.5 mg Q6HPRN PRN IV 01/12/25 10:30 01/12/25 10:48 0.5 MG Clopidogrel Bisulfate 75 mg DAILY PO 01/13/25 10:00 01/14/25 09:43 75 MG Aspirin 81 mg DAILY PO 01/13/25 10:00 01/14/25 09:43 81 MG Sodium Chloride 10 ml QSHIFT@10,22 IV 01/12/25 22:00 01/14/25 09:44 10 ML Laboratory Results Laboratory Tests 01/12/25 05:35 Urinalysis Test 01/10/25 09:18 Urine Color Yellow (Yellow) Urine Clarity Turbid (Clear) H Urine pH 6.5 (5.0-9.0) Urine Specific [place] 1.019 (1.001-1.035) Urine Protein 2+ (Negative) H Urine Ketones Negative (Negative) Urine Blood Negative /uL (Negative) Urine Nitrite Negative (Negative) Urine Bilirubin Negative (Negative) Urine Urobilinogen Normal mg/dL (Negative) Urine Leukocyte Esterase Trace /uL (Negative) Urine RBC 7 /hpf (0 - 4) Urine Microscopic WBC 4 /HPF (0-5) Urine Squamous Epithelial Cells Few /hpf (<5) Urine Bacteria None seen /hpf (None Seen) Urine Yeast (Budding) Moderate /hpf (None Seen) Urine Glucose 1+ mg/dL (Normal) H Microbiology Microbiology Date/Time Source Procedure Growth Status 01/10/25 09:18 Voided Urine Urine Culture - Preliminary Resulted 01/10/25 04:20 Nose MRSA Screen - Final Complete 01/09/25 23:45 Blood Blood Culture - Preliminary NO GROWTH AFTER 72 HOURS OF INCUBATION. Resulted Labs and/or images reviewed: Labs reviewed by me, Image(s) reviewed by me Assessment/Plan Assessment/Plan Sepsis Secondary to right foot infection Nonhealing chronic right foot diabetic ulcer Osteomyelitis right 1st toe: Zosyzaida Zyvox, consult for podiatric Dr. Crowder appreciated, status post incision and drainage to the bone by the coin counter and wrapper Dr Crowder, blood cultures negative, coin counter and wrapper planning for multiple incision and drainage Severe peripheral arterial disease S/p HOSPITALITY SERVICES MANAGER and atherotomy of the right peroneal artery by Dr. Sanchez 01/13/2025 Uncontrolled Diabetes: Insulin sliding scale ESRD on hemodialysis Anxiety Hypothyroidism Hypertension Hypercholesterolemia CHF exacerbation History of ICD placement: Time spent 50 minutes Advanced care planning time 20 minutes Patient is full code Patient lives with her niece and primary care provider Janeen in [place]; Daughter and POA Cierra who lives in [place] [phone] at bedside: She takes decisions for her mom. Patient needs IV antibiotics through PICC line for six weeks per Dr Musson Plan discussed with: Patient Date of Service: Jan 14, 2025 Billing Provider: CANDIDA GALLEGOS MD Common Visit Codes: [id number] INP/OBS CARE(HIGH) CANDIDA GALLEGOS MD Jan 14, 2025 11:38
[2025-01-14 11:54] LABS: Hematocrit 26.3 % (36.0-46.0); Hemoglobin 8.7 g/dL (12.2-16.2); Mean Corpuscular Hemoglobin 33.3 pg (28.0-32.0); Mean Corpuscular Volume 100.4 fL (80.0-100.0); Nucleated Red Blood Cells % 0.3 %
[2025-01-14 12:11] LABS: Alkaline Phosphatase 88 U/L (46-116); Anion Gap 12 (5-15); BUN/Creatinine Ratio 6.2 (10.0-20.0); Carbon Dioxide 26 mmol/L (20-31); Potassium 3.7 mmol/L (3.5-5.1); Sodium 136 mmol/L (136-145); Total Protein 5.8 g/dL (5.7-8.2)
[2025-01-14 12:12] LABS: Bilirubin, Total 0.5 mg/dL (0.2-1.0)
[2025-01-14 12:13] LABS: Alanine Aminotransferase 88 U/L (7-40); Albumin 3.1 g/dL (3.2-4.8); Blood Urea Nitrogen 24 mg/dL (9-23); Calcium 8.3 mg/dL (8.7-10.4); Chloride 98 mmol/L (98-107); Glucose 160 mg/dL (74-106)
--- NOTE | 2025-01-14 14:56 | DVHPN2 ---
Progress Note - Dictate Date Seen: Jan 14, 2025 Medical Necessity Reason Pt with a Central, PICC or Fol: No Subjective no new symptoms vital signs Vital Sign Date Time Temp Pulse Resp B/P (MAP) Pulse Ox O2 Delivery O2 Flow Rate FiO2 01/14/25 09:44 75 149/83 01/14/25 09:00 97.5 18 100 97.5 01/14/25 08:15 Nasal Cannula* 2 28 Total Intake and Output 01/13/25 01/13/25 01/14/25 15:00 23:00 07:00 Intake Total 300 ml 1840 ml 900 ml Balance 300 ml 1840 ml 900 ml medications Current Medications Medications Dose Ordered Sig/Seth Route Start Time Stop Time Status Last Admin Dose Admin Acetaminophen 325 mg Q4HP PRN PO 01/10/25 00:30 Ondansetron HCl 4 mg Q4HP PRN IV 01/10/25 00:30 01/12/25 02:06 4 MG Enoxaparin Sodium 40 mg DAILY SC 01/10/25 10:00 01/14/25 09:43 40 MG Linezolid 300 ml @ 150 mls/hr Q12HR IV 01/10/25 10:00 01/14/25 09:43 150 MLS/HR Sodium Chloride 1,000 ml @ 60 mls/hr [id number] IV 01/10/25 03:30 01/13/25 21:49 60 MLS/HR Piperacillin Sod/ Tazobactam Sod 100 ml @ 25 mls/hr Q8H IV 01/10/25 13:15 01/14/25 13:45 25 MLS/HR Atorvastatin Calcium 40 mg HS PO 01/10/25 22:00 01/13/25 21:48 40 MG Carvedilol 3.125 mg Q12HR PO 01/10/25 22:00 01/14/25 09:44 3.125 MG Levothyroxine Sodium 125 mcg QAM@0600 PO 01/11/25 06:00 01/14/25 05:05 125 MCG Hydromorphone HCl 0.5 mg Q6HPRN PRN IV 01/12/25 10:30 01/12/25 10:48 0.5 MG Clopidogrel Bisulfate 75 mg DAILY PO 01/13/25 10:00 01/14/25 09:43 75 MG Aspirin 81 mg DAILY PO 01/13/25 10:00 01/14/25 09:43 81 MG Sodium Chloride 10 ml QSHIFT@10,22 IV 01/12/25 22:00 01/14/25 09:44 10 ML Diagnostic Test (Pha) 1 strip Q12HR 01/14/25 22:00 UNV Insulin Human Regular Q12HR SC 01/14/25 22:00 UNV Dextrose 50 ml UD PRN IV 01/14/25 14:15 UNV objective Gen: NAD HEENT: NC,AT Lungs: CTA b/l Cardiac: RRR, no murmur Abd: soft, no tenderness Ext: no edema on legs Neuro: no focal deficits laboratory and microbiology Laboratory Tests 01/14/25 11:10 Test 01/14/25 11:10 Range/Units Serum Glucose 160 H 74-106 mg/dL Assessment/Plan ESRD on HD Right foot osteomyelitis DM HTN hypothyroidism Leukocytosis Anemia of CKD Hyperphosphatemia Secondary hyperparathyroidism Plan: s/p HD Wednesday, net UF 2L Next HD on Wednesday Will continue HD on MWF schedule Continue IV antibiotics per primary team Continue Coreg 3.125 mg PO BID KEVIN post HD as needed , goal Hb: 10-11 g/dl Dietary Evaluation Review Comments: Nutrition Recommendation 1) CCHO 60gm + renal standard diet 2) Nephro-santosh 1 tab daily 3) Lexx 1 pk daily 4) Monitor PO intake, lab values, weight trend, and I/O Expected Outcomes/Goals: To meet >75% estimated needs Wound to improve Fu 3-5 days Plan discussed with: Patient DEVON GARSIA MD Jan 14, 2025 14:56
[2025-01-14] MEDS: InsuLIN REG 1unit/0.01ml Soln (100units/ml) SC SCH (20:46)
[2025-01-14] MEDS: ACCU-CHEK COMFORT CURVE STRIP VI SCH (20:46)
[2025-01-15] VITALS (7 sets, daily range): BP systolic 107–140; BP diastolic 59–69; PULSE 71–95; RESP 16–19; TEMP 98.4–99.3; O2SAT 90–100
[2025-01-15] MEDS: SODIUM CHL 0.9% 1000 ML BAG XX ONE (07:00)
--- NOTE | 2025-01-15 12:01 | DVHPN2 ---
Subjective Kaitlin Ojeda is a 64-year-old female patient who presents to ED with chief complaint of nonhealing right foot wound which started three weeks before her admission, progressively got worse presenting purulent discharge with foul smell and not able to bear weight on her foot. Worsening symptoms prompted her visit to the ED. Patient denies any associated symptoms including fever, chills, palpitation, syncope and dysuria. Reviewed: Care Plan Changes from previous H/P or p: No Changes Objective Vitals Vital Signs Date Time Temp Pulse Resp B/P (MAP) Pulse Ox O2 Delivery O2 Flow Rate FiO2 01/15/25 08:00 81 01/15/25 08:00 19 90 Nasal Cannula* 2 28 01/15/25 05:00 98.6 117/61 (79) 98.6 Intake/Output Intake and Output 01/15/25 07:00 Intake Total 1360 ml Output Total 3 ml Balance 1357 ml Intake Oral 560 ml IV Total 800 ml Stool Total 3 ml # Voids 1 Exam Dermatological: Skin is dry with mild erythema and some maceration around the wound site No gross deformities noted Mild non-pitting edema present bilaterally Right foot dorsal and plantar incisions with fibrosis and purulent drainage Vascular: Dorsalis pedis and posterior tibial pulses are 1+ bilaterally Capillary refill is under 2 seconds Skin temperature is warm bilaterally Neurologic: Protective sensation is absent on the plantar forefoot bilaterally Monofilament testing reveals decreased sensation in multiple plantar sites Musculoskeletal: Range of motion at the ankle and MTP joints is within normal limits. Strength is 5/5 in all tested muscle groups. Gait is antalgic due to offloading of the affected limb. Medications Current Medications Medications Dose Ordered Sig/Seth Route Start Time Stop Time Status Last Admin Dose Admin Acetaminophen 325 mg Q4HP PRN PO 01/10/25 00:30 Ondansetron HCl 4 mg Q4HP PRN IV 01/10/25 00:30 01/12/25 02:06 4 MG Enoxaparin Sodium 40 mg DAILY SC 01/10/25 10:01/14/25 09:43 40 MG Linezolid 300 ml @ 150 mls/hr Q12HR IV 01/10/25 10:01/14/25 21:37 150 MLS/HR Sodium Chloride 1,000 ml @ 60 mls/hr [id number] IV 01/10/25 03:30 01/13/25 21:49 60 MLS/HR Piperacillin Sod/ Tazobactam Sod 100 ml @ 25 mls/hr Q8H IV 01/10/25 13:15 01/15/25 05:19 25 MLS/HR Atorvastatin Calcium 40 mg HS PO 01/10/25 22:00 01/14/25 21:37 40 MG Carvedilol 3.125 mg Q12HR PO 01/10/25 22:00 01/14/25 21:37 3.125 MG Levothyroxine Sodium 125 mcg QAM@0600 PO 01/11/25 06:00 01/15/25 05:19 125 MCG Hydromorphone HCl 0.5 mg Q6HPRN PRN IV 01/12/25 10:30 01/14/25 15:32 0.5 MG Clopidogrel Bisulfate 75 mg DAILY PO 01/13/25 10:00 01/14/25 09:43 75 MG Aspirin 81 mg DAILY PO 01/13/25 10:00 01/14/25 09:43 81 MG Sodium Chloride 10 ml QSHIFT@ IV 01/12/25 22:00 01/14/25 20:37 10 ML Diagnostic Test (Pha) 1 strip Q12HR 01/14/25 22:00 01/14/25 20:46 1 STRIP Insulin Human Regular Q12HR SC 01/14/25 22:00 Dextrose 50 ml UD PRN IV 01/14/25 14:15 Laboratory Results Laboratory Tests 01/14/25 11:10 Urinalysis Test 01/10/25 09:18 Urine Color Yellow (Yellow) Urine Clarity Turbid (Clear) H Urine pH 6.5 (5.0-9.0) Urine Specific [place] 1.019 (1.001-1.035) Urine Protein 2+ (Negative) H Urine Ketones Negative (Negative) Urine Blood Negative /uL (Negative) Urine Nitrite Negative (Negative) Urine Bilirubin Negative (Negative) Urine Urobilinogen Normal mg/dL (Negative) Urine Leukocyte Esterase Trace /uL (Negative) Urine RBC 7 /hpf (0 - 4) Urine Microscopic WBC 4 /HPF (0-5) Urine Squamous Epithelial Cells Few /hpf (<5) Urine Bacteria None seen /hpf (None Seen) Urine Yeast (Budding) Moderate /hpf (None Seen) Urine Glucose 1+ mg/dL (Normal) H Microbiology Microbiology Date/Time Source Procedure Growth Status 01/10/25 09:18 Voided Urine Urine Culture - Final Presumptive Sully albicans Yeast, not Sully albicans Complete 01/10/25 04:20 Nose MRSA Screen - Final Complete 01/09/25 23:45 Blood Blood Culture - Final NO GROWTH AFTER 5 DAYS OF INCUBATION. Complete Assessment/Plan Assessment/Plan ASSESSMENT: Patient is a 64 year old seen on the floor follow up s/p foot I&D PLAN: - The patients chart was reviewed, clinical findings were discussed with the patient, the etiologies of the conditions were discussed in detail, and a treatment plan was agreed to at this time, with both oral and written instructions provided. - reviewed advanced imaging - reviewed all of the labs and pathology - discussed plan is to perform a subsequent incision and drainage - take her to the OR today - it was determined that multiple I&Ds will be necessary to save the limb - can weightbear as tolerated in postoperative shoe All questions were answered and concerns addressed to the patient's satisfaction. The patient was given the phone number to the clinic and was told how to make contact with the clinic should any concerns or questions arise. Patient understands that if any questions or concerns arise prior to the next appointment, we should be contacted immediately. FOLLOW-UP: Continue to follow while inpatient Plan discussed with: Patient My Orders Orders - MARYCRUZ EASTMAN DPM Procedure Category Date Status Time Obtain Consent For: ORDERS 01/15/25 Transmitted 09:14 Problem List: (1) Toe fracture, right (2) Toe osteomyelitis, right Visit Coding Podiatry Date of Service if different f: Jan 15, 2025 Billing Provider: MARYCRUZ EASTMAN DPM Podiatry Common Visit Codes: [id number] INP/OBS CARE(HIGH) MARYCRUZ EASTMAN DPM Jan 15, 2025 12:01
[2025-01-15] MEDS: FLUCONAZOLE 100 MG TAB PO ONE (12:15)
--- NOTE | 2025-01-15 12:18 | DVHPN2 ---
Reviewed: Care Plan Changes from previous H/P or p: No Changes Objective Vitals Vital Signs Date Time Temp Pulse Resp B/P (MAP) Pulse Ox O2 Delivery O2 Flow Rate FiO2 01/15/25 08:00 81 01/15/25 08:00 19 90 Nasal Cannula* 2 28 01/15/25 05:00 98.6 117/61 (79) 98.6 Intake/Output Intake and Output 01/15/25 07:00 Intake Total 1360 ml Output Total 3 ml Balance 1357 ml Intake Oral 560 ml IV Total 800 ml Stool Total 3 ml # Voids 1 Medications Current Medications Medications Dose Ordered Sig/Seth Route Start Time Stop Time Status Last Admin Dose Admin Acetaminophen 325 mg Q4HP PRN PO 01/10/25 00:30 Ondansetron HCl 4 mg Q4HP PRN IV 01/10/25 00:30 01/12/25 02:06 4 MG Enoxaparin Sodium 40 mg DAILY SC 01/10/25 10:00 01/14/25 09:43 40 MG Linezolid 300 ml @ 150 mls/hr Q12HR IV 01/10/25 10:00 01/14/25 21:37 150 MLS/HR Sodium Chloride 1,000 ml @ 60 mls/hr [id number] IV 01/10/25 03:30 01/13/25 21:49 60 MLS/HR Piperacillin Sod/ Tazobactam Sod 100 ml @ 25 mls/hr Q8H IV 01/10/25 13:15 01/15/25 05:19 25 MLS/HR Atorvastatin Calcium 40 mg HS PO 01/10/25 22:00 01/14/25 21:37 40 MG Carvedilol 3.125 mg Q12HR PO 01/10/25 22:00 01/14/25 21:37 3.125 MG Levothyroxine Sodium 125 mcg QAM@0600 PO 01/11/25 06:00 01/15/25 05:19 125 MCG Hydromorphone HCl 0.5 mg Q6HPRN PRN IV 01/12/25 10:30 01/14/25 15:32 0.5 MG Clopidogrel Bisulfate 75 mg DAILY PO 01/13/25 10:00 01/14/25 09:43 75 MG Aspirin 81 mg DAILY PO 01/13/25 10:00 01/14/25 09:43 81 MG Sodium Chloride 10 ml QSHIFT@10,22 IV 01/12/25 22:00 01/14/25 20:37 10 ML Diagnostic Test (Pha) 1 strip Q12HR 01/14/25 22:00 01/14/25 20:46 1 STRIP Insulin Human Regular Q12HR SC 01/14/25 22:00 Dextrose 50 ml UD PRN IV 01/14/25 14:15 Laboratory Results Laboratory Tests 01/14/25 11:10 Urinalysis Test 01/10/25 09:18 Urine Color Yellow (Yellow) Urine Clarity Turbid (Clear) H Urine pH 6.5 (5.0-9.0) Urine Specific [place] 1.019 (1.001-1.035) Urine Protein 2+ (Negative) H Urine Ketones Negative (Negative) Urine Blood Negative /uL (Negative) Urine Nitrite Negative (Negative) Urine Bilirubin Negative (Negative) Urine Urobilinogen Normal mg/dL (Negative) Urine Leukocyte Esterase Trace /uL (Negative) Urine RBC 7 /hpf (0 - 4) Urine Microscopic WBC 4 /HPF (0-5) Urine Squamous Epithelial Cells Few /hpf (<5) Urine Bacteria None seen /hpf (None Seen) Urine Yeast (Budding) Moderate /hpf (None Seen) Urine Glucose 1+ mg/dL (Normal) H Microbiology Microbiology Date/Time Source Procedure Growth Status 01/10/25 09:18 Voided Urine Urine Culture - Final Presumptive Sully albicans Yeast, not Sully albicans Complete 01/10/25 04:20 Nose MRSA Screen - Final Complete 01/09/25 23:45 Blood Blood Culture - Final NO GROWTH AFTER 5 DAYS OF INCUBATION. Complete Labs and/or images reviewed: Labs reviewed by me, Image(s) reviewed by me Assessment/Plan Assessment/Plan Sepsis Secondary to right foot infection Nonhealing chronic right foot diabetic ulcer Osteomyelitis right 1st toe: Zojune Baires, consult for podiatric Dr. Crowder appreciated, status post incision and drainage to the bone by the retail field representative Dr Crowder, blood cultures negative, retail field representative planning for multiple incision and drainage Severe peripheral arterial disease S/p OPERATOR SUP[employer]Y and atherotomy of the right peroneal artery by Dr. Sanchez 01/13/2025 Uncontrolled Diabetes: Insulin sliding scale ESRD on hemodialysis Anxiety Hypothyroidism Hypertension Hypercholesterolemia CHF exacerbation History of ICD placement: UTI with yeast: Diflucan 200 mg p.o. daily Time spent 50 minutes Advanced care planning time 20 minutes Patient is full code Patient lives with her niece and care attendant Janeen in [place]; Daughter and POA Cierra who lives in [place] [phone] at bedside: She takes decisions for her mom. Patient needs IV antibiotics through PICC line for six weeks per Dr Crowder Plan discussed with: Patient My Orders Orders - CANDIDA GALLEGOS MD Procedure Category Date Status Time Glucose Blood PHA 01/14/25 In Process (Accu-Chek Comfort 22:00 Insulin R (Human) PHA 01/14/25 In Process (Insulin R) 22:00 Dextrose 50% Syringe PHA 01/14/25 In Process 14:15 Date of Service: Jan 15, 2025 Billing Provider: CANDIDA GALLEGOS MD Common Visit Codes: [id number] INP/OBS CARE(HIGH) CANDIDA GALLEGOS MD Jan 15, 2025 12:18
[2025-01-15] MEDS ORDERED: FLUCONAZOLE 100 MG TAB PO PRN (12:45)
--- NOTE | 2025-01-15 13:04 | DVHOP2 ---
Operative Report - 2 Report Details Date: 01/15/25 Preop Diagnosis: 1. Right foot osteomyelitis 2. Right foot abscess 3. Right foot cellulitis 4. Right foot diabetic ulcer Postop Diagnosis: Same as preop Surgeon: Marycruz Eastman MD Anesthesiologist: None Anesthesia: Local Consent: The patient was informed of the risks and benefits of the procedure. These include but are not limited to complications of anesthesia, postoperative infection, incomplete relief of symptoms, recurrence of symptoms, damage to blood vessels, nerves and tendons, deep venous thrombosis, pulmonary embolism and possible need for repeat surgery in the future. Complications: None Estimated Blood Loss: Minimal Fluids: See anesthesia Findings: Consistent with the diagnosis Indications for Surgery: Worsening right foot wound Name of Procedure Performed 1. Right foot I&D to bone ([id number]) Procedure Details Procedure Details: PRE-PROCEDURE INFORMATION: In the pre-op holding area, the extremity to be operated on was clearly marked and the patient verified correct laterality of the marking. The patient was transferred to the OR table and placed in a supine position. A timeout was performed in which identification of the correct patient, procedure, location, and materials was done. The right foot and leg were prepped and draped in normal sterile fashion. DESCRIPTION OF PROCEDURE: Attention was directed to the right where previous incision was made. An incision was made over this area and was deepened through blunt dissection. The incision was deepened to the level of abscess and bone. Care was taken to the dissection to avoid any neurovascular and tendinous structures. The incision was deepened to the bone, and the abscess appeared to be purulent fluid consistent with pus. The cortices of the bone was then removed with rongeur an all necrotic tissue. After the abscess was drained, the area was irrigated with 3 L normal saline using cysto tubing. Deep cultures were then obtained from the wound. The area was then inspected and any areas of tracking, especially along the tendons were also drained. The wound was packed with Betadine-soaked gauze and we will need to be closed at a later date. POSTOPERATIVE INFORMATION: The patient tolerated the above noted procedure and anesthesia well and was transferred to the PACU with vital signs stable, and vascular status intact with capillary refill intact to all digits. Deep cultures were taken. We will need 6 weeks IV antibiotics. Wound is looking better. Patient will need 1 more subsequent I&D on Wednesday. Patient will need a wound VAC placed after that Condition Good Disposition Still a Patient Visit Coding Podiatry Date of Service if different f: Jan 15, 2025 Billing Provider: MARYCRUZ EASTMAN DPM Podiatry Common Visit Codes: PROCEDURE ONLY MARYCRUZ EASTMAN DPM Jan 15, 2025 13:04
[2025-01-15] MEDS: ACETAMINOPHEN 325 MG TAB PO PRN (15:13)
--- NOTE | 2025-01-15 17:29 | DVHPN2 ---
Progress Note - Dictate Date Seen: Jan 15, 2025 Medical Necessity Reason Pt with a Central, PICC or Fol: No Subjective Patient went for I and D. No complaints vital signs Vital Sign Date Time Temp Pulse Resp B/P (MAP) Pulse Ox O2 Delivery O2 Flow Rate FiO2 01/15/25 15:13 98.7 01/15/25 13:02 82 16 145/76 (99) 100 01/15/25 08:00 Nasal Cannula* 2 28 Total Intake and Output 01/14/25 01/14/25 01/15/25 15:00 23:00 07:00 Intake Total 300 ml 460 ml 600 ml Output Total 3 ml Balance 300 ml 457 ml 600 ml medications Current Medications Medications Dose Ordered Sig/Seth Route Start Time Stop Time Status Last Admin Dose Admin Acetaminophen 325 mg Q4HP PRN PO 01/10/25 00:30 01/15/25 15:13 325 MG Ondansetron HCl 4 mg Q4HP PRN IV 01/10/25 00:30 01/12/25 02:06 4 MG Enoxaparin Sodium 40 mg DAILY SC 01/10/25 10:00 01/14/25 09:43 40 MG Linezolid 300 ml @ 150 mls/hr Q12HR IV 01/10/25 10:00 01/15/25 10:00 150 MLS/HR Sodium Chloride 1,000 ml @ 60 mls/hr [id number] IV 01/10/25 03:30 01/13/25 21:49 60 MLS/HR Piperacillin Sod/ Tazobactam Sod 100 ml @ 25 mls/hr Q8H IV 01/10/25 13:15 01/15/25 05:19 25 MLS/HR Atorvastatin Calcium 40 mg HS PO 01/10/25 22:00 01/14/25 21:37 40 MG Carvedilol 3.125 mg Q12HR PO 01/10/25 22:00 01/14/25 21:37 3.125 MG Levothyroxine Sodium 125 mcg QAM@0600 PO 01/11/25 06:00 01/15/25 05:19 125 MCG Hydromorphone HCl 0.5 mg Q6HPRN PRN IV 01/12/25 10:30 01/14/25 15:32 0.5 MG Clopidogrel Bisulfate 75 mg DAILY PO 01/13/25 10:00 01/14/25 09:43 75 MG Aspirin 81 mg DAILY PO 01/13/25 10:00 01/14/25 09:43 81 MG Sodium Chloride 10 ml QSHIFT@10,22 IV 01/12/25 22:00 01/15/25 10:00 10 ML Diagnostic Test (Pha) 1 strip Q12HR 01/14/25 22:00 01/14/25 20:46 1 STRIP Insulin Human Regular Q12HR SC 01/14/25 22:00 Dextrose 50 ml UD PRN IV 01/14/25 14:15 Fluconazole 100 mg DAILY PO 01/16/25 10:00 Fluconazole 100 mg POSTDI PRN PO 01/15/25 12:45 objective HEENT: No evidence of JVD, no oral ulcers. Pulmonary: Lungs are clear on auscultation bilaterally Cardiovascular S1-S2, no S3 or S4 Abdomen: Bowel sounds positive, soft no rebound tenderness Skin: No rash Neurological: Alert, oriented, no focal weakness Right foot dressed laboratory and microbiology Laboratory Tests 01/14/25 11:10 Test 01/14/25 11:10 Range/Units Serum Glucose 160 H 74-106 mg/dL Assessment/Plan Assessment: ESRD on HD Right foot osteomyelitis DM HTN hypothyroidism Leukocytosis Anemia of CKD Hyperphosphatemia Secondary hyperparathyroidism Plan: Will continue HD on MWF schedule Continue IV antibiotics per primary team Continue Coreg 3.125 mg PO BID KEVIN post HD as needed , goal Hb: 10-11 g/dl Thank you very much for allowing us to participate in the care of this patient Dietary Evaluation Review Comments: Nutrition Recommendation 1) CCHO 60gm + renal standard diet 2) Nephro-santosh 1 tab daily 3) Lexx 1 pk daily 4) Monitor PO intake, lab values, weight trend, and I/O Expected Outcomes/Goals: To meet >75% estimated needs Wound to improve Fu 3-5 days Plan discussed with: Patient JOSÉ LUIS TAM MD Jan 15, 2025 17:29
[2025-01-15] MEDS: OXYCODONE W/ ACETAMINOPHEN 5/325MG TABLET PO ONE (20:13)
[2025-01-15] MEDS: EPOETIN ALFA-EPBX 4,000 UNIT/ML VIAL SC ONE (20:14)
[2025-01-16] VITALS (8 sets, daily range): BP systolic 114–146; BP diastolic 36–75; PULSE 63–87; RESP 18–19; TEMP 98.1–98.9; O2SAT 91–100
[2025-01-16] MEDS: ALBUMIN 25% 100 ML IV ONE (03:30)
[2025-01-16] MEDS: FLUCONAZOLE 100 MG TAB PO SCH (10:16)
--- NOTE | 2025-01-16 10:21 | DVHPN2 ---
Reviewed: Care Plan Changes from previous H/P or p: No Changes Objective Vitals Vital Signs Date Time Temp Pulse Resp B/P (MAP) Pulse Ox O2 Delivery O2 Flow Rate FiO2 01/16/25 09:00 98.9 84 18 137/68 (91) 100 98.9 01/15/25 20:00 Nasal Cannula* 2 28 Intake/Output Intake and Output 01/16/25 07:00 Intake Total 850 ml Balance 850 ml Intake Oral 450 ml IV Total 400 ml # Bowel Movements 2 Medications Current Medications Medications Dose Ordered Sig/Seth Route Start Time Stop Time Status Last Admin Dose Admin Acetaminophen 325 mg Q4HP PRN PO 01/10/25 00:30 01/15/25 15:13 325 MG Ondansetron HCl 4 mg Q4HP PRN IV 01/10/25 00:30 01/12/25 02:06 4 MG Enoxaparin Sodium 40 mg DAILY SC 01/10/25 10:00 01/14/25 09:43 40 MG Linezolid 300 ml @ 150 mls/hr Q12HR IV 01/10/25 10:00 01/15/25 21:24 150 MLS/HR Sodium Chloride 1,000 ml @ 60 mls/hr [id number] IV 01/10/25 03:30 01/15/25 16:50 60 MLS/HR Piperacillin Sod/ Tazobactam Sod 100 ml @ 25 mls/hr Q8H IV 01/10/25 13:15 01/16/25 05:07 25 MLS/HR Atorvastatin Calcium 40 mg HS PO 01/10/25 22:00 01/15/25 21:23 40 MG Carvedilol 3.125 mg Q12HR PO 01/10/25 22:00 01/14/25 21:37 3.125 MG Levothyroxine Sodium 125 mcg QAM@0600 PO 01/11/25 06:00 01/16/25 05:11 125 MCG Hydromorphone HCl 0.5 mg Q6HPRN PRN IV 01/12/25 10:30 01/15/25 17:40 0.5 MG Clopidogrel Bisulfate 75 mg DAILY PO 01/13/25 10:00 01/14/25 09:43 75 MG Aspirin 81 mg DAILY PO 01/13/25 10:00 01/14/25 09:43 81 MG Sodium Chloride 10 ml QSHIFT@10,22 IV 01/12/25 22:00 01/15/25 21:32 10 ML Diagnostic Test (Pha) 1 strip Q12HR 01/14/25 22:00 01/15/25 21:32 1 STRIP Insulin Human Regular Q12HR SC 01/14/25 22:00 Dextrose 50 ml UD PRN IV 01/14/25 14:15 Fluconazole 100 mg DAILY PO 01/16/25 10:00 Fluconazole 100 mg POSTDI PRN PO 01/15/25 12:45 Laboratory Results Laboratory Tests 01/14/25 11:10 Urinalysis Test 01/10/25 09:18 Urine Color Yellow (Yellow) Urine Clarity Turbid (Clear) H Urine pH 6.5 (5.0-9.0) Urine Specific [place] 1.019 (1.001-1.035) Urine Protein 2+ (Negative) H Urine Ketones Negative (Negative) Urine Blood Negative /uL (Negative) Urine Nitrite Negative (Negative) Urine Bilirubin Negative (Negative) Urine Urobilinogen Normal mg/dL (Negative) Urine Leukocyte Esterase Trace /uL (Negative) Urine RBC 7 /hpf (0 - 4) Urine Microscopic WBC 4 /HPF (0-5) Urine Squamous Epithelial Cells Few /hpf (<5) Urine Bacteria None seen /hpf (None Seen) Urine Yeast (Budding) Moderate /hpf (None Seen) Urine Glucose 1+ mg/dL (Normal) H Microbiology Microbiology Date/Time Source Procedure Growth Status 01/15/25 13:00 Foot Right Gram Stain Pending Resulted 01/15/25 13:00 Foot Right Anaerobic Culture - Preliminary Resulted 01/15/25 13:00 Foot Right Aerobic Culture Pending Resulted 01/10/25 09:18 Voided Urine Urine Culture - Final Presumptive Sully albicans Yeast, not Sully albicans Complete 01/09/25 23:45 Blood Blood Culture - Final NO GROWTH AFTER 5 DAYS OF INCUBATION. Complete Labs and/or images reviewed: Labs reviewed by me, Image(s) reviewed by me Assessment/Plan Assessment/Plan Sepsis Secondary to right foot infection Nonhealing chronic right foot diabetic ulcer Osteomyelitis right 1st toe: Zosyn Zyvox, consult for podiatric Dr. Crowder appreciated, status post incision and drainage to the bone by the lump room supervisor Dr Crowder, blood cultures negative, patient had repeat incision and drainage on 01/15/2025, another planned for 01/17/2025 Severe peripheral arterial disease S/p COORDINATOR OF REHABILITATION SERVICES and atherotomy of the right peroneal artery by Dr. Sanchez 01/13/2025 Uncontrolled Diabetes: Insulin sliding scale ESRD on hemodialysis Anxiety Hypothyroidism Hypertension Hypercholesterolemia CHF exacerbation History of ICD placement: UTI with yeast: Diflucan 200 mg p.o. daily Time spent 50 minutes Advanced care planning time 20 minutes Patient is full code Patient lives with her niece and healthcare interpreter Janeen in [place]; Daughter and POA Cierra who lives in [place] [phone] at bedside: She takes decisions for her mom. Patient needs IV antibiotics through PICC line for six weeks per Dr Crowder Plan discussed with: Patient My Orders Orders - CANDIDA GALLEGOS MD Procedure Category Date Status Time Fluconazole Tablet PHA 01/16/25 In Process (Diflucan Tablet) 10:00 Fluconazole Tablet PHA 01/15/25 In Process (Diflucan Tablet) 12:45 Date of Service: Jan 16, 2025 Billing Provider: CANDIDA GALLEGOS MD Common Visit Codes: [id number] CARE 30-74 MIN CANDIDA GALLEGOS MD Jan 16, 2025 10:21
--- NOTE | 2025-01-16 15:07 | DVHPN2 ---
Progress Note - Dictate Date Seen: Jan 16, 2025 Medical Necessity Reason Pt with a Central, PICC or Fol: No Subjective Patient has no complaints today yesterday dialysis complicated by intra dialytic hypotension vital signs Vital Sign Date Time Temp Pulse Resp B/P (MAP) Pulse Ox O2 Delivery O2 Flow Rate FiO2 01/16/25 11:15 82 107/40 01/16/25 10:53 16 01/16/25 09:00 98.9 100 98.9 01/15/25 20:00 Nasal Cannula* 2 28 Total Intake and Output 01/15/25 01/15/25 01/16/25 15:00 23:00 07:00 Intake Total 350 ml 500 ml Balance 350 ml 500 ml medications Current Medications Medications Dose Ordered Sig/Seth Route Start Time Stop Time Status Last Admin Dose Admin Acetaminophen 325 mg Q4HP PRN PO 01/10/25 00:30 01/15/25 15:13 325 MG Ondansetron HCl 4 mg Q4HP PRN IV 01/10/25 00:30 01/12/25 02:06 4 MG Enoxaparin Sodium 40 mg DAILY SC 01/10/25 10:00 01/16/25 10:22 40 MG Linezolid 300 ml @ 150 mls/hr Q12HR IV 01/10/25 10:00 01/16/25 10:24 150 MLS/HR Sodium Chloride 1,000 ml @ 60 mls/hr [id number] IV 01/10/25 03:30 01/15/25 16:50 60 MLS/HR Piperacillin Sod/ Tazobactam Sod 100 ml @ 25 mls/hr Q8H IV 01/10/25 13:15 01/16/25 14:17 25 MLS/HR Atorvastatin Calcium 40 mg HS PO 01/10/25 22:00 01/15/25 21:23 40 MG Carvedilol 3.125 mg Q12HR PO 01/10/25 22:00 01/16/25 10:15 3.125 MG Levothyroxine Sodium 125 mcg QAM@0600 PO 01/11/25 06:00 01/16/25 05:11 125 MCG Hydromorphone HCl 0.5 mg Q6HPRN PRN IV 01/12/25 10:30 01/16/25 10:23 0.5 MG Clopidogrel Bisulfate 75 mg DAILY PO 01/13/25 10:00 01/16/25 10:16 75 MG Aspirin 81 mg DAILY PO 01/13/25 10:00 01/16/25 10:16 81 MG Sodium Chloride 10 ml QSHIFT@10,22 IV 01/12/25 22:00 01/16/25 10:11 10 ML Diagnostic Test (Pha) 1 strip Q12HR 01/14/25 22:00 01/16/25 10:00 1 STRIP Insulin Human Regular Q12HR SC 01/14/25 22:00 Dextrose 50 ml UD PRN IV 01/14/25 14:15 Fluconazole 100 mg DAILY PO 01/16/25 10:00 01/16/25 10:16 100 MG Fluconazole 100 mg POSTDI PRN PO 01/15/25 12:45 objective HEENT: No evidence of JVD, no oral ulcers. Pulmonary: Lungs are clear on auscultation bilaterally Cardiovascular S1-S2, no S3 or S4 Abdomen: Bowel sounds positive, soft no rebound tenderness Skin: No rash Neurological: Alert, oriented, no focal weakness Right foot dressed laboratory and microbiology Laboratory Tests 01/14/25 11:10 Test 01/14/25 11:10 Range/Units Serum Glucose 160 H 74-106 mg/dL Assessment/Plan Assessment: ESRD on HD Right foot osteomyelitis DM HTN hypothyroidism Leukocytosis Anemia of CKD Hyperphosphatemia Secondary hyperparathyroidism Plan: Will continue HD on MWF schedule with midodrine and albumin Continue IV antibiotics per primary team Continue Coreg 3.125 mg PO BID KEVIN post HD as needed , goal Hb: 10-11 g/dl Possible SNF placement Thank you very much for allowing us to participate in the care of this patient Dietary Evaluation Review Comments: Nutrition Recommendation 1) CCHO 60gm + renal standard diet 2) Nephro-santosh 1 tab daily 3) Lexx 1 pk daily 4) Monitor PO intake, lab values, weight trend, and I/O Expected Outcomes/Goals: To meet >75% estimated needs Wound to improve Fu 3-5 days Plan discussed with: Patient JOSÉ LUIS TAM MD Jan 16, 2025 15:07
[2025-01-17] VITALS (15 sets, daily range): BP systolic 112–151; BP diastolic 24–89; PULSE 63–99; RESP 15–20; TEMP 97.5–99.3; O2SAT 92–100
[2025-01-17 09:41] LABS: Alkaline Phosphatase 73 U/L (46-116); Anion Gap 11 (5-15); BUN/Creatinine Ratio 5.3 (10.0-20.0); Bilirubin, Total 0.4 mg/dL (0.2-1.0); Blood Urea Nitrogen 20 mg/dL (9-23); Carbon Dioxide 29 mmol/L (20-31); Chloride 99 mmol/L (98-107); Potassium 3.5 mmol/L (3.5-5.1); Sodium 139 mmol/L (136-145)
[2025-01-17 09:43] LABS: Alanine Aminotransferase 48 U/L (7-40); Albumin 2.7 g/dL (3.2-4.8); Calcium 7.7 mg/dL (8.7-10.4); Glucose 62 mg/dL (74-106); INR 1.37 (0.9-1.15); Partial Thromboplastin Time 45.5 SEC (24.5-34.5); Prothrombin Time 14.1 sec (9.3-11.8); Total Protein 5.0 g/dL (5.7-8.2)
--- NOTE | 2025-01-17 10:22 | DVHPN2 ---
Reviewed: Care Plan Changes from previous H/P or p: No Changes Objective Vitals Vital Signs Date Time Temp Pulse Resp B/P (MAP) Pulse Ox O2 Delivery O2 Flow Rate FiO2 01/17/25 09:47 63 117/54 01/17/25 09:00 98.3 20 100 98.3 01/16/25 20:00 Nasal Cannula* 2 28 Intake/Output Intake and Output 01/17/25 07:00 Intake Total 820 ml Balance 820 ml Intake Oral 20 ml IV Total 800 ml # Bowel Movements 1 Medications Current Medications Medications Dose Ordered Sig/Seth Route Start Time Stop Time Status Last Admin Dose Admin Acetaminophen 325 mg Q4HP PRN PO 01/10/25 00:30 01/15/25 15:13 325 MG Ondansetron HCl 4 mg Q4HP PRN IV 01/10/25 00:30 01/12/25 02:06 4 MG Enoxaparin Sodium 40 mg DAILY SC 01/10/25 10:00 01/16/25 10:22 40 MG Linezolid 300 ml @ 150 mls/hr Q12HR IV 01/10/25 10:00 01/17/25 09:39 150 MLS/HR Sodium Chloride 1,000 ml @ 60 mls/hr [id number] IV 01/10/25 03:30 01/15/25 16:50 60 MLS/HR Piperacillin Sod/ Tazobactam Sod 100 ml @ 25 mls/hr Q8H IV 01/10/25 13:15 01/17/25 05:34 25 MLS/HR Atorvastatin Calcium 40 mg HS PO 01/10/25 22:00 01/16/25 21:30 40 MG Carvedilol 3.125 mg Q12HR PO 01/10/25 22:00 01/17/25 09:47 3.125 MG Levothyroxine Sodium 125 mcg QAM@0600 PO 01/11/25 06:00 01/17/25 05:34 125 MCG Hydromorphone HCl 0.5 mg Q6HPRN PRN IV 01/12/25 10:30 01/17/25 05:14 0.5 MG Clopidogrel Bisulfate 75 mg DAILY PO 01/13/25 10:00 01/17/25 09:47 75 MG Aspirin 81 mg DAILY PO 01/13/25 10:00 01/17/25 09:46 81 MG Sodium Chloride 10 ml QSHIFT@10,22 IV 01/12/25 22:00 01/17/25 09:46 10 ML Diagnostic Test (Pha) 1 strip Q12HR 01/14/25 22:00 01/16/25 21:55 1 STRIP Insulin Human Regular Q12HR SC 01/14/25 22:00 Dextrose 50 ml UD PRN IV 01/14/25 14:15 Fluconazole 100 mg DAILY PO 01/16/25 10:00 01/17/25 09:47 100 MG Fluconazole 100 mg POSTDI PRN PO 01/15/25 12:45 Laboratory Results Laboratory Tests 01/17/25 08:54 Chemistry Test 01/17/25 08:54 Albumin 2.7 g/dL (3.2-4.8) L Calcium Level 7.7 mg/dL (8.7-10.4) L Total Protein 5.0 g/dL (5.7-8.2) L Coagulation Test 01/17/25 08:54 Prothrombin Time 14.1 sec (9.3-11.8) H Prothrombin Time INR 1.37 (0.9-1.15) H Activated Partial Thromboplast Time 45.5 SEC (24.5-34.5) H LFT Test 01/17/25 08:54 Alanine Aminotransferase (ALT) 48 U/L (7-40) H Alkaline Phosphatase 73 U/L (46-116) Aspartate Amino Transferase (AST) 53 U/L (13-40) H Total Bilirubin 0.4 mg/dL (0.2-1.0) Urinalysis Test 01/10/25 09:18 Urine Color Yellow (Yellow) Urine Clarity Turbid (Clear) H Urine pH 6.5 (5.0-9.0) Urine Specific [place] 1.019 (1.001-1.035) Urine Protein 2+ (Negative) H Urine Ketones Negative (Negative) Urine Blood Negative /uL (Negative) Urine Nitrite Negative (Negative) Urine Bilirubin Negative (Negative) Urine Urobilinogen Normal mg/dL (Negative) Urine Leukocyte Esterase Trace /uL (Negative) Urine RBC 7 /hpf (0 - 4) Urine Microscopic WBC 4 /HPF (0-5) Urine Squamous Epithelial Cells Few /hpf (<5) Urine Bacteria None seen /hpf (None Seen) Urine Yeast (Budding) Moderate /hpf (None Seen) Urine Glucose 1+ mg/dL (Normal) H Microbiology Microbiology Date/Time Source Procedure Growth Status 01/15/25 13:00 Foot Right Gram Stain - Final Resulted 01/15/25 13:00 Foot Right Anaerobic Culture - Preliminary Resulted 01/15/25 13:00 Foot Right Aerobic Culture - Preliminary Resulted 01/10/25 09:18 Voided Urine Urine Culture - Final Presumptive Sully albicans Yeast, not Sully albicans Complete 01/09/25 23:45 Blood Blood Culture - Final NO GROWTH AFTER 5 DAYS OF INCUBATION. Complete Labs and/or images reviewed: Labs reviewed by me, Image(s) reviewed by me Assessment/Plan Assessment/Plan Sepsis Secondary to right foot infection Nonhealing chronic right foot diabetic ulcer Osteomyelitis right 1st toe: Alicia Baires, consult for podiatric Dr. Crowder appreciated, status post incision and drainage to the bone by the business department chair Dr Crowder, blood cultures negative, patient had repeat incision and drainage on 01/15/2025, another planned for 01/17/2025 Severe peripheral arterial disease S/p CHARGE COORDINATOR and atherotomy of the right peroneal artery by Dr. Sanchez 01/13/2025 Uncontrolled Diabetes: Insulin sliding scale ESRD on hemodialysis Anxiety Hypothyroidism Hypertension Hypercholesterolemia CHF exacerbation History of ICD placement: UTI with yeast: Diflucan 200 mg p.o. daily Time spent 50 minutes Advanced care planning time 20 minutes Patient is full code Patient lives with her niece and urgent care physician assistant Janeen in [place] [phone] Daughter and POA Cierra who lives in [place] [phone] at bedside: She takes decisions for her mom. Patient needs IV antibiotics through PICC line for six weeks per Dr Crowder Wound culture results pending Plan discussed with: Patient My Orders Orders - CANDIDA GALLEGOS MD Procedure Category Date Status Time Complete Blood Count LAB 01/17/25 Logged 06:39 Pt Request For Service PT 01/17/25 Logged 10:01 Date of Service: Jan 17, 2025 Billing Provider: CANDIDA GALLEGOS MD Common Visit Codes: [id number] INP/OBS CARE(HIGH) CANDIDA GALLEGOS MD Jan 17, 2025 10:22
[2025-01-17 11:19] LABS: Nucleated Red Blood Cells % 0.1 %
[2025-01-17 11:21] LABS: Hematocrit 20.8 % (36.0-46.0); Mean Corpuscular Hemoglobin 33.0 pg (28.0-32.0); Mean Corpuscular Volume 99.6 fL (80.0-100.0)
[2025-01-17 11:27] LABS: Hemoglobin 6.9 g/dL (12.2-16.2)
--- NOTE | 2025-01-17 13:56 | DVHPN2 ---
Progress Note - Dictate Date Seen: Jan 17, 2025 Medical Necessity Reason Pt with a Central, PICC or Fol: No Subjective No acute events overnight vital signs Vital Sign Date Time Temp Pulse Resp B/P (MAP) Pulse Ox O2 Delivery O2 Flow Rate FiO2 01/17/25 12:49 97.5 74 17 132/75 (94) 100 97.5 01/17/25 08:00 Nasal Cannula* 2 28 Total Intake and Output 01/16/25 01/16/25 01/17/25 14:59 22:59 06:59 Intake Total 400 ml 20 ml 400 ml Balance 400 ml 20 ml 400 ml medications Current Medications Medications Dose Ordered Sig/Seth Route Start Time Stop Time Status Last Admin Dose Admin Acetaminophen 325 mg Q4HP PRN PO 01/10/25 00:30 01/15/25 15:13 325 MG Ondansetron HCl 4 mg Q4HP PRN IV 01/10/25 00:30 01/12/25 02:06 4 MG Enoxaparin Sodium 40 mg DAILY SC 01/10/25 10:00 01/16/25 10:22 40 MG Linezolid 300 ml @ 150 mls/hr Q12HR IV 01/10/25 10:00 01/17/25 09:39 150 MLS/HR Sodium Chloride 1,000 ml @ 60 mls/hr [id number] IV 01/10/25 03:30 01/15/25 16:50 60 MLS/HR Piperacillin Sod/ Tazobactam Sod 100 ml @ 25 mls/hr Q8H IV 01/10/25 13:15 01/17/25 05:34 25 MLS/HR Atorvastatin Calcium 40 mg HS PO 01/10/25 22:00 01/16/25 21:30 40 MG Carvedilol 3.125 mg Q12HR PO 01/10/25 22:00 01/17/25 09:47 3.125 MG Levothyroxine Sodium 125 mcg QAM@0600 PO 01/11/25 06:00 01/17/25 05:34 125 MCG Hydromorphone HCl 0.5 mg Q6HPRN PRN IV 01/12/25 10:30 01/17/25 05:14 0.5 MG Clopidogrel Bisulfate 75 mg DAILY PO 01/13/25 10:00 01/17/25 09:47 75 MG Aspirin 81 mg DAILY PO 01/13/25 10:00 01/17/25 09:46 81 MG Sodium Chloride 10 ml QSHIFT@10,22 IV 01/12/25 22:00 01/17/25 09:46 10 ML Diagnostic Test (Pha) 1 strip Q12HR 01/14/25 22:00 01/16/25 21:55 1 STRIP Insulin Human Regular Q12HR SC 01/14/25 22:00 Dextrose 50 ml UD PRN IV 01/14/25 14:15 Fluconazole 100 mg DAILY PO 01/16/25 10:00 01/17/25 09:47 100 MG Fluconazole 100 mg POSTDI PRN PO 01/15/25 12:45 objective HEENT: No evidence of JVD, no oral ulcers. Pulmonary: Lungs are clear on auscultation bilaterally Cardiovascular S1-S2, no S3 or S4 Abdomen: Bowel sounds positive, soft no rebound tenderness Skin: No rash Neurological: Alert, oriented, no focal weakness Right foot dressed laboratory and microbiology Laboratory Tests 01/17/25 10:57 01/17/25 08:54 Test 01/17/25 08:54 Range/Units Serum Glucose 62 L 74-106 mg/dL Assessment/Plan Assessment: ESRD on HD Right foot osteomyelitis DM HTN hypothyroidism Leukocytosis Anemia of CKD Hyperphosphatemia Secondary hyperparathyroidism Plan: Continue HD on MWF schedule with midodrine and albumin Continue IV antibiotics per primary team Continue Coreg 3.125 mg PO BID KEVIN post HD as needed , goal Hb: 10-11 g/dl Possible SNF placement Thank you very much for allowing us to participate in the care of this patient Dietary Evaluation Review Comments: Nutrition Recommendation 1) CCHO 60gm + renal standard diet 2) Nephro-santosh 1 tab daily 3) Lexx 1 pk daily 4) Monitor PO intake, lab values, weight trend, and I/O Expected Outcomes/Goals: To meet >75% estimated needs Wound to improve Fu 3-5 days Plan discussed with: Patient JOSÉ LUIS TAM MD Jan 17, 2025 13:56
[2025-01-17] MEDS ORDERED: fentaNYL CITRATE 100 MCG/2 ML VL ONE (14:34)
[2025-01-17] MEDS: BUPIVACAINE 0.5% P/F INJ 10 ML VIAL ONE (14:44)
--- NOTE | 2025-01-17 14:54 | DVHOP2 ---
Operative Report - 2 Report Details Date: 01/17/25 Preop Diagnosis: 1. Right foot osteomyelitis 2. Right foot abscess 3. Right foot cellulitis 4. Right foot diabetic ulcer Postop Diagnosis: Same as preop Surgeon: Marycruz Eastman MD Anesthesiologist: See anesthesia Anesthesia: Mac Consent: The patient was informed of the risks and benefits of the procedure. These include but are not limited to complications of anesthesia, postoperative infection, incomplete relief of symptoms, recurrence of symptoms, damage to blood vessels, nerves and tendons, deep venous thrombosis, pulmonary embolism and possible need for repeat surgery in the future. Complications: None Estimated Blood Loss: Minimal Fluids: See anesthesia Findings: Consistent with diagnosis Indications for Surgery: Worsening foot wound Name of Procedure Performed 1. Right foot I&D to bone (55031) Procedure Details Procedure Details: PRE-PROCEDURE INFORMATION: In the pre-op holding area, the extremity to be operated on was clearly marked and the patient verified correct laterality of the marking. The patient was transferred to the OR table and placed in a supine position. A timeout was performed in which identification of the correct patient, procedure, location, and materials was done. The right foot and leg were prepped and draped in normal sterile fashion. DESCRIPTION OF PROCEDURE: Attention was directed to the right where previous incision was made. An incision was made over this area and was deepened through blunt dissection. The incision was deepened to the level of abscess and bone. Care was taken to the dissection to avoid any neurovascular and tendinous structures. The incision was deepened to the bone, and the abscess appeared to be purulent fluid consistent with pus. The cortices of the bone was then removed with rongeur an all necrotic tissue. After the abscess was drained, the area was irrigated with 3 L normal saline using cysto tubing. Deep cultures were then obtained from the wound. The area was then inspected and any areas of tracking, especially along the tendons were also drained. The wound was packed with Betadine-soaked gauze and we will need to be closed at a later date. POSTOPERATIVE INFORMATION: The patient tolerated the above noted procedure and anesthesia well and was transferred to the PACU with vital signs stable, and vascular status intact with capillary refill intact to all digits. Patient will need 6 weeks IV antibiotics. Patient will need a wound VAC. Do not keep the toes covered as it macerated the toe was last time. Condition Good Disposition Still a Patient Visit Coding Podiatry Date of Service if different f: Jan 17, 2025 Billing Provider: MARYCRUZ EASTMAN DPM Podiatry Common Visit Codes: PROCEDURE ONLY MARYCRUZ EASTMAN DPM Jan 17, 2025 14:54
[2025-01-17 20:34] LABS: Hematocrit 28.4 % (36.0-46.0); Hemoglobin 9.3 g/dL (12.2-16.2); Mean Corpuscular Hemoglobin 31.9 pg (28.0-32.0); Mean Corpuscular Volume 97.2 fL (80.0-100.0); Nucleated Red Blood Cells % 0.2 %
[2025-01-17] MEDS: EPOETIN ALFA-EPBX 10,000 UNIT/1ML VIAL SC ONE (22:02)
[2025-01-18] VITALS (9 sets, daily range): BP systolic 86–138; BP diastolic 42–68; PULSE 64–83; RESP 14–18; TEMP 97.3–98.2; O2SAT 90–100
[2025-01-18 06:41] LABS: Hemoglobin 8.2 g/dL (12.2-16.2)
[2025-01-18 06:44] LABS: Hematocrit 24.1 % (36.0-46.0); Mean Corpuscular Hemoglobin 32.5 pg (28.0-32.0); Mean Corpuscular Volume 95.9 fL (80.0-100.0); Nucleated Red Blood Cells % 0.1 %
[2025-01-18] MEDS: SODIUM CHL 0.9% 1000 ML BAG XX ONE (10:30)
--- NOTE | 2025-01-18 11:08 | DVHPN2 ---
Reviewed: Care Plan Changes from previous H/P or p: No Changes Objective Vitals Vital Signs Date Time Temp Pulse Resp B/P (MAP) Pulse Ox O2 Delivery O2 Flow Rate FiO2 01/18/25 10:35 64 134/68 01/18/25 09:00 98.1 16 100 98.1 01/17/25 20:00 Nasal Cannula* 2 28 Intake/Output Intake and Output 01/18/25 07:00 Intake Total 1500 ml Balance 1500 ml Intake Oral 200 ml IV Total 700 ml Blood Product 300 ml Other 300 ml # Voids 3 # Bowel Movements 3 Medications Current Medications Medications Dose Ordered Sig/Seth Route Start Time Stop Time Status Last Admin Dose Admin Acetaminophen 325 mg Q4HP PRN PO 01/10/25 00:30 01/15/25 15:13 325 MG Ondansetron HCl 4 mg Q4HP PRN IV 01/10/25 00:30 01/18/25 00:36 4 MG Enoxaparin Sodium 40 mg DAILY SC 01/10/25 10:00 01/16/25 10:22 40 MG Linezolid 300 ml @ 150 mls/hr Q12HR IV 01/10/25 10:00 01/18/25 10:37 150 MLS/HR Sodium Chloride 1,000 ml @ 60 mls/hr [id number] IV 01/10/25 03:30 01/17/25 18:57 60 MLS/HR Piperacillin Sod/ Tazobactam Sod 100 ml @ 25 mls/hr Q8H IV 01/10/25 13:15 01/18/25 05:08 25 MLS/HR Atorvastatin Calcium 40 mg HS PO 01/10/25 22:00 01/17/25 21:47 40 MG Carvedilol 3.125 mg Q12HR PO 01/10/25 22:00 01/18/25 10:35 3.125 MG Levothyroxine Sodium 125 mcg QAM@0600 PO 01/11/25 06:00 01/18/25 05:10 125 MCG Hydromorphone HCl 0.5 mg Q6HPRN PRN IV 01/12/25 10:30 01/18/25 00:35 0.5 MG Clopidogrel Bisulfate 75 mg DAILY PO 01/13/25 10:00 01/17/25 09:47 75 MG Aspirin 81 mg DAILY PO 01/13/25 10:00 01/17/25 09:46 81 MG Sodium Chloride 10 ml QSHIFT@10,22 IV 01/12/25 22:00 01/18/25 10:37 10 ML Diagnostic Test (Pha) 1 strip Q12HR 01/14/25 22:00 01/18/25 10:00 1 STRIP Insulin Human Regular Q12HR SC 01/14/25 22:00 Dextrose 50 ml UD PRN IV 01/14/25 14:15 Fluconazole 100 mg DAILY PO 01/16/25 10:00 01/18/25 10:35 100 MG Fluconazole 100 mg POSTDI PRN PO 01/15/25 12:45 Laboratory Results Laboratory Tests 01/17/25 08:54 01/18/25 05:55 Urinalysis Test 01/10/25 09:18 Urine Color Yellow (Yellow) Urine Clarity Turbid (Clear) H Urine pH 6.5 (5.0-9.0) Urine Specific [place] 1.019 (1.001-1.035) Urine Protein 2+ (Negative) H Urine Ketones Negative (Negative) Urine Blood Negative /uL (Negative) Urine Nitrite Negative (Negative) Urine Bilirubin Negative (Negative) Urine Urobilinogen Normal mg/dL (Negative) Urine Leukocyte Esterase Trace /uL (Negative) Urine RBC 7 /hpf (0 - 4) Urine Microscopic WBC 4 /HPF (0-5) Urine Squamous Epithelial Cells Few /hpf (<5) Urine Bacteria None seen /hpf (None Seen) Urine Yeast (Budding) Moderate /hpf (None Seen) Urine Glucose 1+ mg/dL (Normal) H Microbiology Microbiology Date/Time Source Procedure Growth Status 01/15/25 13:00 Foot Right Gram Stain - Final Resulted 01/15/25 13:00 Foot Right Anaerobic Culture - Preliminary Resulted 01/15/25 13:00 Foot Right Aerobic Culture - Preliminary Resulted 01/10/25 09:18 Voided Urine Urine Culture - Final Presumptive Sully albicans Yeast, not Sully albicans Complete 01/09/25 23:45 Blood Blood Culture - Final NO GROWTH AFTER 5 DAYS OF INCUBATION. Complete Labs and/or images reviewed: Labs reviewed by me, Image(s) reviewed by me Assessment/Plan Assessment/Plan Sepsis Secondary to right foot infection Nonhealing chronic right foot diabetic ulcer Osteomyelitis right 1st toe: Alicia Baires, consult for podiatric Dr. Crowder appreciated, status post incision and drainage to the bone by the replanter Dr Crowder, blood cultures negative, patient had repeat incision and drainage on 01/15/2025, another planned for 01/17/2025 Severe peripheral arterial disease S/p PRODUCTION CLERK and atherotomy of the right peroneal artery by Dr. Sanchez 01/13/2025 Uncontrolled Diabetes: Insulin sliding scale ESRD on hemodialysis Anxiety Hypothyroidism Hypertension Hypercholesterolemia CHF exacerbation History of ICD placement: Thrombocytopenia platelets 37K probably secondary to Zyvox, DC Zyvox, continue Zosyn UTI with yeast: Diflucan 200 mg p.o. daily Time spent 50 minutes Advanced care planning time 20 minutes Patient is full code Patient lives with her niece and transitional care manager Janeen in [place] Daughter and POA Cierra who lives in [place] [phone] at bedside: She takes decisions for her mom. Patient needs IV antibiotics through PICC line for six weeks per Dr Crowder Wound culture results pending Spoke to patient's daughter cierra on the phone she is still deciding on which [facility] to go to Plan discussed with: Patient My Orders Orders - CANDIDA GALLEGOS MD Procedure Category Date Status Time Obtain Consent For: ORDERS 01/17/25 Transmitted 11:34 Vital Signs ROB 01/17/25 In Process 11:34 Administer Blood ROB 01/17/25 In Process Products 11:34 Cardiac DIET 01/17/25 Transmitted Diet-2gna,Lofat,Lochol Dinner Date of Service: Jan 18, 2025 Billing Provider: CANDIDA GALLEGOS MD Common Visit Codes: [id number] INP/OBS CARE(HIGH) Secondary Visit Codes: [id number] CARE PLAN 30 MINUTES CANDIDA GALLEGOS MD Jan 18, 2025 11:08
--- NOTE | 2025-01-18 15:15 | DVHPN2 ---
Progress Note - Dictate Date Seen: Jan 18, 2025 Medical Necessity Reason Pt with a Central, PICC or Fol: No Subjective Patient denies any acute process at this time vital signs Vital Sign Date Time Temp Pulse Resp B/P (MAP) Pulse Ox O2 Delivery O2 Flow Rate FiO2 01/18/25 12:52 97.4 74 16 97/49 (65) 91 97.4 01/17/25 20:00 Nasal Cannula* 2 28 Total Intake and Output 01/17/25 01/17/25 01/18/25 15:00 23:00 07:00 Intake Total 600 ml 300 ml 600 ml Balance 600 ml 300 ml 600 ml medications Current Medications Medications Dose Ordered Sig/Seth Route Start Time Stop Time Status Last Admin Dose Admin Acetaminophen 325 mg Q4HP PRN PO 01/10/25 00:30 01/15/25 15:13 325 MG Ondansetron HCl 4 mg Q4HP PRN IV 01/10/25 00:30 01/18/25 00:36 4 MG Enoxaparin Sodium 40 mg DAILY SC 01/10/25 10:00 01/16/25 10:22 40 MG Sodium Chloride 1,000 ml @ 60 mls/hr [id number] IV 01/10/25 03:30 01/17/25 18:57 60 MLS/HR Atorvastatin Calcium 40 mg HS PO 01/10/25 22:00 01/17/25 21:47 40 MG Carvedilol 3.125 mg Q12HR PO 01/10/25 22:00 01/18/25 10:35 3.125 MG Levothyroxine Sodium 125 mcg QAM@0600 PO 01/11/25 06:00 01/18/25 05:10 125 MCG Hydromorphone HCl 0.5 mg Q6HPRN PRN IV 01/12/25 10:30 01/18/25 11:30 0.5 MG Clopidogrel Bisulfate 75 mg DAILY PO 01/13/25 10:00 01/17/25 09:47 75 MG Aspirin 81 mg DAILY PO 01/13/25 10:00 01/17/25 09:46 81 MG Sodium Chloride 10 ml QSHIFT@10,22 IV 01/12/25 22:00 01/18/25 10:37 10 ML Diagnostic Test (Pha) 1 strip Q12HR 01/14/25 22:00 01/18/25 10:00 1 STRIP Insulin Human Regular Q12HR SC 01/14/25 22:00 Dextrose 50 ml UD PRN IV 01/14/25 14:15 Fluconazole 100 mg DAILY PO 01/16/25 10:00 01/18/25 10:35 100 MG Fluconazole 100 mg POSTDI PRN PO 01/15/25 12:45 Ertapenem 0.5 gm/ Sodium Chloride 50 ml @ 100 mls/hr DAILY IV 01/19/25 10:00 objective HEENT: No evidence of JVD, no oral ulcers. Pulmonary: Lungs are clear on auscultation bilaterally Cardiovascular S1-S2, no S3 or S4 Abdomen: Bowel sounds positive, soft no rebound tenderness Skin: No rash Neurological: Alert, oriented, no focal weakness Right foot dressed laboratory and microbiology Laboratory Tests 01/18/25 05:55 01/17/25 08:54 Test 01/17/25 08:54 Range/Units Serum Glucose 62 L 74-106 mg/dL Assessment/Plan Assessment: ESRD on HD Right foot osteomyelitis DM HTN hypothyroidism Leukocytosis Anemia of CKD Hyperphosphatemia Secondary hyperparathyroidism Plan: Dialysis today pending. And TTS Continue IV antibiotics per primary team Continue Coreg 3.125 mg PO BID KEVIN post HD as needed , goal Hb: 10-11 g/dl Possible SNF placement Thank you very much for allowing us to participate in the care of this patient Dietary Evaluation Review Comments: Nutrition Recommendation 1) CCHO 60gm + renal standard diet 2) Nephro-santosh 1 tab daily 3) Lexx 1 pk daily 4) Monitor PO intake, lab values, weight trend, and I/O Expected Outcomes/Goals: To meet >75% estimated needs Wound to improve Fu 3-5 days Plan discussed with: Patient CC Plasma Assessment Blood Product Administration S: [id number] JOSÉ LUIS TAM MD Jan 18, 2025 15:15
[2025-01-18] MEDS: ERTAPENEM SOD INJ 1 GM in SODIUM CHL 0.9% 50 ML IV ONE (15:50)
[2025-01-19] VITALS (11 sets, daily range): BP systolic 103–180; BP diastolic 25–67; PULSE 73–94; RESP 16–20; TEMP 97.6–98.7; O2SAT 91–100
[2025-01-19] MEDS: MIDODRINE HCL 10 MG TAB PO PRN (00:41)
[2025-01-19] MEDS: ALBUMIN 25% 100 ML IV PRN (02:44)
[2025-01-19] MEDS: SODIUM CHL 0.9% 1000 ML BAG XX ONE (06:32)
[2025-01-19 06:39] LABS: Hematocrit 24.3 % (36.0-46.0); Mean Corpuscular Hemoglobin 32.6 pg (28.0-32.0); Nucleated Red Blood Cells % 0.2 %
[2025-01-19 06:44] LABS: Hemoglobin 8.4 g/dL (12.2-16.2); Mean Corpuscular Volume 94.7 fL (80.0-100.0)
[2025-01-19 07:01] LABS: Alanine Aminotransferase 38 U/L (7-40); Alkaline Phosphatase 84 U/L (46-116); Anion Gap 16 (5-15); BUN/Creatinine Ratio 4.9 (10.0-20.0); Blood Urea Nitrogen 14 mg/dL (9-23); Carbon Dioxide 25 mmol/L (20-31); Chloride 99 mmol/L (98-107); Potassium 3.5 mmol/L (3.5-5.1); Sodium 140 mmol/L (136-145); Total Protein 6.2 g/dL (5.7-8.2)
[2025-01-19 07:02] LABS: Albumin 3.6 g/dL (3.2-4.8)
[2025-01-19 07:03] LABS: Bilirubin, Total 0.8 mg/dL (0.2-1.0)
[2025-01-19 07:07] LABS: Calcium 8.3 mg/dL (8.7-10.4); Glucose 65 mg/dL (74-106)
[2025-01-19] MEDS: ERTAPENEM SOD INJ 0.5 GM in SODIUM CHL 0.9% 50 ML IV SCH (10:00)
--- NOTE | 2025-01-19 11:28 | DVHPN2 ---
Reviewed: Care Plan Changes from previous H/P or p: No Changes Objective Vitals Vital Signs Date Time Temp Pulse Resp B/P (MAP) Pulse Ox O2 Delivery O2 Flow Rate FiO2 01/19/25 11:15 89 158/64 01/19/25 08:59 98.6 20 99 98.6 01/18/25 19:52 Nasal Cannula* 2 28 Intake/Output Intake and Output 01/19/25 07:00 Intake Total 1250 ml Balance 1250 ml Intake Oral 550 ml IV Total 330 ml Blood Product 370 ml # Voids 4 # Bowel Movements 6 Medications Current Medications Medications Dose Ordered Sig/Seth Route Start Time Stop Time Status Last Admin Dose Admin Acetaminophen 325 mg Q4HP PRN PO 01/10/25 00:30 01/15/25 15:13 325 MG Ondansetron HCl 4 mg Q4HP PRN IV 01/10/25 00:30 01/18/25 00:36 4 MG Enoxaparin Sodium 40 mg DAILY SC 01/10/25 10:00 01/16/25 10:22 40 MG Sodium Chloride 1,000 ml @ 60 mls/hr [id number] IV 01/10/25 03:30 01/18/25 15:30 60 MLS/HR Atorvastatin Calcium 40 mg HS PO 01/10/25 22:00 01/18/25 21:47 40 MG Carvedilol 3.125 mg Q12HR PO 01/10/25 22:00 01/19/25 11:15 3.125 MG Levothyroxine Sodium 125 mcg QAM@0600 PO 01/11/25 06:00 01/19/25 05:17 125 MCG Hydromorphone HCl 0.5 mg Q6HPRN PRN IV 01/12/25 10:30 01/18/25 11:30 0.5 MG Clopidogrel Bisulfate 75 mg DAILY PO 01/13/25 10:00 01/17/25 09:47 75 MG Aspirin 81 mg DAILY PO 01/13/25 10:00 01/17/25 09:46 81 MG Sodium Chloride 10 ml QSHIFT@10,22 IV 01/12/25 22:00 01/19/25 10:00 10 ML Diagnostic Test (Pha) 1 strip Q12HR 01/14/25 22:00 01/19/25 10:00 1 STRIP Insulin Human Regular Q12HR SC 01/14/25 22:00 Dextrose 50 ml UD PRN IV 01/14/25 14:15 Fluconazole 100 mg DAILY PO 01/16/25 10:00 01/19/25 11:15 100 MG Fluconazole 100 mg POSTDI PRN PO 01/15/25 12:45 Ertapenem 0.5 gm/ Sodium Chloride 50 ml @ 100 mls/hr DAILY IV 01/19/25 10:00 Midodrine 10 mg WD PRN PO 01/18/25 21:00 01/19/25 00:41 10 MG Albumin Human 100 ml @ 100 mls/hr WD PRN IV 01/18/25 21:00 01/19/25 02:44 100 MLS/HR Laboratory Results Laboratory Tests 01/19/25 05:49 Chemistry Test 01/19/25 05:49 Albumin 3.6 g/dL (3.2-4.8) Calcium Level 8.3 mg/dL (8.7-10.4) L Total Protein 6.2 g/dL (5.7-8.2) LFT Test 01/19/25 05:49 Alanine Aminotransferase (ALT) 38 U/L (7-40) Alkaline Phosphatase 84 U/L (46-116) Aspartate Amino Transferase (AST) 39 U/L (13-40) Total Bilirubin 0.8 mg/dL (0.2-1.0) Urinalysis Test 01/10/25 09:18 Urine Color Yellow (Yellow) Urine Clarity Turbid (Clear) H Urine pH 6.5 (5.0-9.0) Urine Specific [place] 1.019 (1.001-1.035) Urine Protein 2+ (Negative) H Urine Ketones Negative (Negative) Urine Blood Negative /uL (Negative) Urine Nitrite Negative (Negative) Urine Bilirubin Negative (Negative) Urine Urobilinogen Normal mg/dL (Negative) Urine Leukocyte Esterase Trace /uL (Negative) Urine RBC 7 /hpf (0 - 4) Urine Microscopic WBC 4 /HPF (0-5) Urine Squamous Epithelial Cells Few /hpf (<5) Urine Bacteria None seen /hpf (None Seen) Urine Yeast (Budding) Moderate /hpf (None Seen) Urine Glucose 1+ mg/dL (Normal) H Microbiology Microbiology Date/Time Source Procedure Growth Status 01/15/25 13:00 Foot Right Gram Stain - Final Complete 01/15/25 13:00 Anaerobic Culture - Final Bacteroides fragilis Complete 01/15/25 13:00 Aerobic Culture - Final Morganella morganii Klebsiella pneumoniae - ESBL Complete 01/10/25 09:18 Voided Urine Urine Culture - Final Presumptive Sully albicans Yeast, not Sully albicans Complete 01/09/25 23:45 Blood Blood Culture - Final NO GROWTH AFTER 5 DAYS OF INCUBATION. Complete Labs and/or images reviewed: Labs reviewed by me, Image(s) reviewed by me Assessment/Plan Assessment/Plan Sepsis Secondary to right foot infection wound cultures growing ESBL Klebsiella pneumoniae and Morganella Austin, RY Zyvox and Zosyn, start Invanz 1 g IV daily for six weeks Nonhealing chronic right foot diabetic ulcer Osteomyelitis right 1st toe: consult for podiatric Dr. Crowder appreciated, status post incision and drainage to the bone by the first helper Dr Crowder, blood cultures negative, patient had repeat incision and drainage on 01/15/2025, 01/17/2025 Severe peripheral arterial disease S/p PROGRAM SUPPORT CLERK and atherotomy of the right peroneal artery by Dr. Sanchez 01/13/2025 Uncontrolled Diabetes: Insulin sliding scale ESRD on hemodialysis Anxiety Hypothyroidism Hypertension Hypercholesterolemia CHF exacerbation History of ICD placement: Thrombocytopenia platelets 37K probably secondary to Zyvox, DC Zyvox, status post 1 unit platelet transfusion during dialysis, platelets improved to 51 UTI with yeast: Diflucan 200 mg p.o. daily Time spent 70 minutes Advanced care planning time 20 minutes Patient is full code Patient lives with her niece and palliative care coordinator Janeen in [place] Daughter and POA Cierra who lives in [place] [phone] at bedside: She takes decisions for her mom. Patient has PICC line in place Spoke to patient's daughter cierra on the phone she is still deciding on which care home to go to: Social Service consult placed ALBERTINA Waters at the bedside Plan discussed with: Patient, Other (RN) My Orders Orders - CANDIDA GALLEGOS MD Procedure Category Date Status Time Complete Blood Count LAB 01/20/25 Verified 04:00 Comprehensive LAB 01/20/25 Verified Metabolic Panel 04:00 Ertapenem Sod Inj PHA 01/19/25 In Process (Invanz) 10:00 Date of Service: Jan 19, 2025 Billing Provider: CANDIDA GALLEGOS MD Common Visit Codes: [id number] CARE 30-74 MIN CANDIDA GALLEGOS MD Jan 19, 2025 11:28
--- NOTE | 2025-01-19 17:43 | DVHPN2 ---
Progress Note - Dictate Date Seen: Jan 19, 2025 Medical Necessity Reason Pt with a Central, PICC or Fol: No Subjective Patient still feels some edema in the face vital signs Vital Sign Date Time Temp Pulse Resp B/P (MAP) Pulse Ox O2 Delivery O2 Flow Rate FiO2 01/19/25 17:32 98.2 78 16 139/67 (91) 100 98.2 01/19/25 08:00 Nasal Cannula* 2 28 Total Intake and Output 01/18/25 01/18/25 01/19/25 15:00 23:00 07:00 Intake Total 380 ml 870 ml Balance 380 ml 870 ml medications Current Medications Medications Dose Ordered Sig/Seth Route Start Time Stop Time Status Last Admin Dose Admin Acetaminophen 325 mg Q4HP PRN PO 01/10/25 00:30 01/15/25 15:13 325 MG Ondansetron HCl 4 mg Q4HP PRN IV 01/10/25 00:30 01/18/25 00:36 4 MG Enoxaparin Sodium 40 mg DAILY SC 01/10/25 10:00 01/16/25 10:22 40 MG Sodium Chloride 1,000 ml @ 60 mls/hr [id number] IV 01/10/25 03:30 01/18/25 15:30 60 MLS/HR Atorvastatin Calcium 40 mg HS PO 01/10/25 22:00 01/18/25 21:47 40 MG Carvedilol 3.125 mg Q12HR PO 01/10/25 22:00 01/19/25 11:15 3.125 MG Levothyroxine Sodium 125 mcg QAM@0600 PO 01/11/25 06:00 01/19/25 05:17 125 MCG Hydromorphone HCl 0.5 mg Q6HPRN PRN IV 01/12/25 10:30 01/18/25 11:30 0.5 MG Clopidogrel Bisulfate 75 mg DAILY PO 01/13/25 10:00 01/17/25 09:47 75 MG Aspirin 81 mg DAILY PO 01/13/25 10:00 01/17/25 09:46 81 MG Sodium Chloride 10 ml QSHIFT@10,22 IV 01/12/25 22:00 01/19/25 10:00 10 ML Diagnostic Test (Pha) 1 strip Q12HR 01/14/25 22:00 01/19/25 10:00 1 STRIP Insulin Human Regular Q12HR SC 01/14/25 22:00 Dextrose 50 ml UD PRN IV 01/14/25 14:15 Fluconazole 100 mg DAILY PO 01/16/25 10:00 01/19/25 11:15 100 MG Fluconazole 100 mg POSTDI PRN PO 01/15/25 12:45 Ertapenem 0.5 gm/ Sodium Chloride 50 ml @ 100 mls/hr DAILY IV 01/19/25 10:00 01/19/25 10:00 100 MLS/HR Midodrine 10 mg WD PRN PO 01/18/25 21:00 01/19/25 00:41 10 MG Albumin Human 100 ml @ 100 mls/hr WD PRN IV 01/18/25 21:00 01/19/25 02:44 100 MLS/HR objective HEENT: No evidence of JVD, no oral ulcers. Pulmonary: Lungs are clear on auscultation bilaterally Cardiovascular S1-S2, no S3 or S4 Abdomen: Bowel sounds positive, soft no rebound tenderness Skin: No rash Neurological: Alert, oriented, no focal weakness Right foot dressed laboratory and microbiology Laboratory Tests 01/19/25 05:49 Test 01/19/25 05:49 Range/Units Serum Glucose 65 L 74-106 mg/dL Assessment/Plan Assessment: ESRD on HD Right foot osteomyelitis DM HTN hypothyroidism Leukocytosis Anemia of CKD Hyperphosphatemia Secondary hyperparathyroidism Plan: Dialysis tomorrow Wednesday Continue IV antibiotics per primary team Continue Coreg 3.125 mg PO BID KEVIN post HD as needed , goal Hb: 10-11 g/dl Possible SNF placement Thank you very much for allowing us to participate in the care of this patient Dietary Evaluation Review Comments: Nutrition Recommendation 1) CCHO 60gm + renal standard diet 2) Nephro-santosh 1 tab daily 3) Lexx 1 pk daily 4) Monitor PO intake, lab values, weight trend, and I/O Expected Outcomes/Goals: To meet >75% estimated needs Wound to improve Fu 3-5 days Plan discussed with: Patient CC Plasma Assessment Blood Product Administration S: [id number] JOSÉ LUIS TAM MD Jan 19, 2025 17:43
[2025-01-19] MEDS: EPOETIN ALFA-EPBX 4,000 UNIT/ML VIAL SC ONE (22:14)
[2025-01-20] VITALS (15 sets, daily range): BP systolic 124–166; BP diastolic 29–84; PULSE 69–102; RESP 12–20; TEMP 96.8–100.7; O2SAT 98–100
[2025-01-20 05:18] LABS: Mean Corpuscular Volume 96.5 fL (80.0-100.0); Nucleated Red Blood Cells % 0.2 %
[2025-01-20 05:19] LABS: Hematocrit 23.4 % (36.0-46.0); Hemoglobin 7.7 g/dL (12.2-16.2); Mean Corpuscular Hemoglobin 32.0 pg (28.0-32.0)
[2025-01-20 05:37] LABS: Alanine Aminotransferase 35 U/L (7-40); Alkaline Phosphatase 96 U/L (46-116); Anion Gap 14 (5-15); Carbon Dioxide 25 mmol/L (20-31); Chloride 100 mmol/L (98-107); Sodium 139 mmol/L (136-145)
[2025-01-20 05:47] LABS: Albumin 3.1 g/dL (3.2-4.8); Calcium 8.2 mg/dL (8.7-10.4); Glucose 73 mg/dL (74-106); Potassium 3.4 mmol/L (3.5-5.1)
[2025-01-20 06:04] LABS: BUN/Creatinine Ratio 5.4 (10.0-20.0); Blood Urea Nitrogen 22 mg/dL (9-23)
[2025-01-20] MEDS: SODIUM CHL 0.9% 1000 ML BAG XX ONE (07:00)
[2025-01-20 07:21] LABS: Bilirubin, Total 0.6 mg/dL (0.2-1.0)
[2025-01-20 07:24] LABS: Total Protein 5.4 g/dL (5.7-8.2)
--- NOTE | 2025-01-20 11:03 | DVHPN2 ---
Reviewed: Care Plan Changes from previous H/P or p: No Changes Objective Vitals Vital Signs Date Time Temp Pulse Resp B/P (MAP) Pulse Ox O2 Delivery O2 Flow Rate FiO2 01/20/25 08:34 97.7 71 18 144/73 (96) 100 97.7 01/20/25 08:00 Nasal Cannula* 2 28 Intake/Output Intake and Output 01/20/25 07:00 Intake Total 670 ml Output Total 320 ml Balance 350 ml Intake Oral 620 ml IV Total 50 ml Emesis 320 ml # Voids 5 # Bowel Movements 11 Medications Current Medications Medications Dose Ordered Sig/Seth Route Start Time Stop Time Status Last Admin Dose Admin Acetaminophen 325 mg Q4HP PRN PO 01/10/25 00:30 01/15/25 15:13 325 MG Ondansetron HCl 4 mg Q4HP PRN IV 01/10/25 00:30 01/20/25 05:43 4 MG Enoxaparin Sodium 40 mg DAILY SC 01/10/25 10:00 01/16/25 10:22 40 MG Sodium Chloride 1,000 ml @ 60 mls/hr [id number] IV 01/10/25 03:30 01/18/25 15:30 60 MLS/HR Atorvastatin Calcium 40 mg HS PO 01/10/25 22:00 01/19/25 22:13 40 MG Carvedilol 3.125 mg Q12HR PO 01/10/25 22:00 01/19/25 22:16 3.125 MG Levothyroxine Sodium 125 mcg QAM@0600 PO 01/11/25 06:00 01/20/25 05:47 125 MCG Hydromorphone HCl 0.5 mg Q6HPRN PRN IV 01/12/25 10:30 01/19/25 22:48 0.5 MG Clopidogrel Bisulfate 75 mg DAILY PO 01/13/25 10:00 01/17/25 09:47 75 MG Aspirin 81 mg DAILY PO 01/13/25 10:00 01/17/25 09:46 81 MG Sodium Chloride 10 ml QSHIFT@10,22 IV 01/12/25 22:00 01/19/25 23:03 10 ML Diagnostic Test (Pha) 1 strip Q12HR 01/14/25 22:00 01/19/25 22:00 1 STRIP Insulin Human Regular Q12HR SC 01/14/25 22:00 Dextrose 50 ml UD PRN IV 01/14/25 14:15 Fluconazole 100 mg DAILY PO 01/16/25 10:00 01/19/25 11:15 100 MG Fluconazole 100 mg POSTDI PRN PO 01/15/25 12:45 Ertapenem 0.5 gm/ Sodium Chloride 50 ml @ 100 mls/hr DAILY IV 01/19/25 10:00 01/19/25 10:00 100 MLS/HR Midodrine 10 mg WD PRN PO 01/18/25 21:00 01/19/25 00:41 10 MG Albumin Human 100 ml @ 100 mls/hr WD PRN IV 01/18/25 21:00 01/19/25 02:44 100 MLS/HR Laboratory Results Laboratory Tests 01/20/25 04:36 Chemistry Test 01/20/25 04:36 Albumin 3.1 g/dL (3.2-4.8) L Calcium Level 8.2 mg/dL (8.7-10.4) L Total Protein 5.4 g/dL (5.7-8.2) L LFT Test 01/20/25 04:36 Alanine Aminotransferase (ALT) 35 U/L (7-40) Alkaline Phosphatase 96 U/L (46-116) Aspartate Amino Transferase (AST) 48 U/L (13-40) H Total Bilirubin 0.6 mg/dL (0.2-1.0) Urinalysis Test 01/10/25 09:18 Urine Color Yellow (Yellow) Urine Clarity Turbid (Clear) H Urine pH 6.5 (5.0-9.0) Urine Specific [place] 1.019 (1.001-1.035) Urine Protein 2+ (Negative) H Urine Ketones Negative (Negative) Urine Blood Negative /uL (Negative) Urine Nitrite Negative (Negative) Urine Bilirubin Negative (Negative) Urine Urobilinogen Normal mg/dL (Negative) Urine Leukocyte Esterase Trace /uL (Negative) Urine RBC 7 /hpf (0 - 4) Urine Microscopic WBC 4 /HPF (0-5) Urine Squamous Epithelial Cells Few /hpf (<5) Urine Bacteria None seen /hpf (None Seen) Urine Yeast (Budding) Moderate /hpf (None Seen) Urine Glucose 1+ mg/dL (Normal) H Microbiology Microbiology Date/Time Source Procedure Growth Status 01/15/25 13:00 Foot Right Gram Stain - Final Complete 01/15/25 13:00 Anaerobic Culture - Final Bacteroides fragilis Complete 01/15/25 13:00 Aerobic Culture - Final Morganella morganii Klebsiella pneumoniae - ESBL Complete 01/10/25 09:18 Voided Urine Urine Culture - Final Presumptive Sully albicans Yeast, not Sully albicans Complete 01/09/25 23:45 Blood Blood Culture - Final NO GROWTH AFTER 5 DAYS OF INCUBATION. Complete Labs and/or images reviewed: Labs reviewed by me, Image(s) reviewed by me Assessment/Plan Assessment/Plan Sepsis Secondary to right foot infection wound cultures growing ESBL Klebsiella pneumoniae and Morganella Indiogagnidia, RY Zyvox and Zosyn, start Invanz 1 g IV daily for six weeks Nonhealing chronic right foot diabetic ulcer Osteomyelitis right 1st toe: consult for podiatric Dr. Crowder appreciated, status post incision and drainage to the bone by the heating repair technician Dr Crowder, blood cultures negative, patient had repeat incision and drainage on 01/15/2025, 01/17/2025 Severe peripheral arterial disease S/p EHS MANAGER and atherotomy of the right peroneal artery by Dr. Sanchez 01/13/2025 Uncontrolled Diabetes: Insulin sliding scale ESRD on hemodialysis Anxiety Hypothyroidism Hypertension Hypercholesterolemia CHF exacerbation History of ICD placement: Thrombocytopenia platelets 27K probably secondary to Zyvox, DC Zyvox, transfuse 2 units platelets, consult for ID Dr. Goldsmith UTI with yeast: Diflucan 200 mg p.o. daily Time spent 70 minutes Advanced care planning time 20 minutes Patient is full code Patient lives with her niece and career and guidance counselor Janeen in [place] [phone] Daughter and POA Cierra who lives in [place] [phone] at bedside: She takes decisions for her mom. Patient has PICC line in place Spoke to patient's daughter cierra on the phone he wants patient to be discharged to [facility] [place] Social Service consult placed ALBERTINA Murphy at the bedside Plan discussed with: Patient My Orders Orders - CANDIDA GALLEGOS MD Procedure Category Date Status Time * Hanger Off CONS 01/19/25 Transmitted Consult Wound Vac ROB 01/19/25 In Process 10:00 Complete Blood Count LAB 01/21/25 Verified 04:00 Comprehensive LAB 01/21/25 Verified Metabolic Panel 04:00 * Wound Consult CONS 10/18/25 Transmitted Date of Service: Jan 20, 2025 Billing Provider: CANDIDA GALLEGOS MD Common Visit Codes: [id number] INP/OBS CARE(HIGH) CANDIDA GALLEGOS MD Jan 20, 2025 11:03
[2025-01-20] MEDS: guaiFENesin-DM 100/10mg/5ml SYR PO SCH (14:02)
[2025-01-20] MEDS: PNEUMOCOCCAL VACC POLYS 25 MCG/0.5 ML VIAL IM ONE (15:38)
--- NOTE | 2025-01-20 16:06 | DVHPN2 ---
Progress Note - Dictate Date Seen: Jan 20, 2025 Medical Necessity Reason Pt with a Central, PICC or Fol: No Subjective Today patient complains of cough, wheezing vital signs Vital Sign Date Time Temp Pulse Resp B/P (MAP) Pulse Ox O2 Delivery O2 Flow Rate FiO2 01/20/25 14:02 83 166/64 01/20/25 12:31 98.6 14 99 98.6 01/20/25 08:00 Nasal Cannula* 2 28 Total Intake and Output 01/19/25 01/19/25 01/20/25 15:00 23:00 07:00 Intake Total 450 ml 100 ml 120 ml Output Total 320 ml Balance 450 ml 100 ml -200 ml medications Current Medications Medications Dose Ordered Sig/Seth Route Start Time Stop Time Status Last Admin Dose Admin Acetaminophen 325 mg Q4HP PRN PO 01/10/25 00:30 01/15/25 15:13 325 MG Ondansetron HCl 4 mg Q4HP PRN IV 01/10/25 00:30 01/20/25 05:43 4 MG Enoxaparin Sodium 40 mg DAILY SC 01/10/25 10:00 01/16/25 10:22 40 MG Sodium Chloride 1,000 ml @ 60 mls/hr [id number] IV 01/10/25 03:30 01/18/25 15:30 60 MLS/HR Atorvastatin Calcium 40 mg HS PO 01/10/25 22:00 01/19/25 22:13 40 MG Carvedilol 3.125 mg Q12HR PO 01/10/25 22:00 01/20/25 14:02 3.125 MG Levothyroxine Sodium 125 mcg QAM@0600 PO 01/11/25 06:00 01/20/25 05:47 125 MCG Hydromorphone HCl 0.5 mg Q6HPRN PRN IV 01/12/25 10:30 01/19/25 22:48 0.5 MG Clopidogrel Bisulfate 75 mg DAILY PO 01/13/25 10:00 01/17/25 09:47 75 MG Aspirin 81 mg DAILY PO 01/13/25 10:00 01/17/25 09:46 81 MG Sodium Chloride 10 ml QSHIFT@10,22 IV 01/12/25 22:00 01/20/25 14:03 10 ML Diagnostic Test (Pha) 1 strip Q12HR 01/14/25 22:00 01/20/25 11:30 1 STRIP Insulin Human Regular Q12HR SC 01/14/25 22:00 Dextrose 50 ml UD PRN IV 01/14/25 14:15 Fluconazole 100 mg DAILY PO 01/16/25 10:00 01/20/25 14:03 100 MG Fluconazole 100 mg POSTDI PRN PO 01/15/25 12:45 Ertapenem 0.5 gm/ Sodium Chloride 50 ml @ 100 mls/hr DAILY IV 01/19/25 10:00 01/20/25 14:26 100 MLS/HR Midodrine 10 mg WD PRN PO 01/18/25 21:00 01/19/25 00:41 10 MG Albumin Human 100 ml @ 100 mls/hr WD PRN IV 01/18/25 21:00 01/19/25 02:44 100 MLS/HR Guaifenesin/ Dextromethorphan 10 ml TID PO 01/20/25 14:00 01/20/25 14:02 10 ML Albuterol 2.5 mg Q4HPRN PRN NEB 01/20/25 16:00 UNV objective HEENT: No evidence of JVD, no oral ulcers. Pulmonary: Who wheezing on auscultation bilaterally Cardiovascular S1-S2, no S3 or S4 Abdomen: Bowel sounds positive, soft no rebound tenderness Skin: No rash Neurological: Alert, oriented, no focal weakness Right foot dressed laboratory and microbiology Laboratory Tests 01/20/25 04:36 Test 01/20/25 04:36 Range/Units Serum Glucose 73 L 74-106 mg/dL Assessment/Plan Assessment: ESRD on HD Right foot osteomyelitis Bronchitis DM HTN hypothyroidism Leukocytosis Anemia of CKD Hyperphosphatemia Secondary hyperparathyroidism Plan: Dialysis TTS Albuterol q.4 hours p.r.n., Robitussin, consider chest x-ray at the discretion of the primary team Continue IV antibiotics per primary team Continue Coreg 3.125 mg PO BID KEVIN post HD as needed , goal Hb: 10-11 g/dl Possible SNF placement Thank you very much for allowing us to participate in the care of this patient Dietary Evaluation Review Comments: Nutrition Recommendation 1) CCHO 60gm + renal standard diet 2) Nephro-santosh 1 tab daily 3) Lexx 1 pk daily 4) Monitor PO intake, lab values, weight trend, and I/O Expected Outcomes/Goals: To meet >75% estimated needs Wound to improve Fu 3-5 days Plan discussed with: Patient, Daughter CC Plasma Assessment Blood Product Administration S: [id number] JOSÉ LUIS TAM MD Jan 20, 2025 16:06
[2025-01-20] MEDS: ALBUTEROL SULF 2.5 MG/0.5ML(0.5%) NEB SOLN ONE (16:20)
--- NOTE | 2025-01-20 17:41 | DVH ---
CHEST RADIOGRAPH Indication: wheezing Technique: Single frontal view of the chest was obtained Comparison: XY CHEST XRAY 1 VIEW on DOS: 01/10/25 FINDINGS: Lines and Tubes: None Lungs: Interval development of the infiltrate in the right upper lung field with air bronchograms are noted. Pleura: No effusion. No pneumothorax. Cardiomediastinal contours: Unremarkable Bones: No acute osseous abnormality. IMPRESSION: 1. Right upper lobe airspace disease with air bronchograms. 2. Cardiomegaly slightly larger than January 10, 2025. Findings may represent pericardial effusion or cardiomyopathy. 3. Pacemaker in place with pulse generator over the left chest.
[2025-01-20] MEDS: EPOETIN ALFA-EPBX 4,000 UNIT/ML VIAL SC ONE (21:08)
[2025-01-21] VITALS (17 sets, daily range): BP systolic 106–150; BP diastolic 14–78; PULSE 71–96; RESP 12–20; TEMP 97.7–101.8; O2SAT 89–98
[2025-01-21 05:10] LABS: Hematocrit 20.6 % (36.0-46.0); Mean Corpuscular Hemoglobin 32.2 pg (28.0-32.0); Mean Corpuscular Volume 94.5 fL (80.0-100.0); Nucleated Red Blood Cells % 0.0 %
[2025-01-21 05:42] LABS: Hemoglobin 7.0 g/dL (12.2-16.2)
[2025-01-21 05:54] LABS: Alanine Aminotransferase 30 U/L (7-40); Alkaline Phosphatase 98 U/L (46-116); Anion Gap 13 (5-15); BUN/Creatinine Ratio 6.9 (10.0-20.0); Bilirubin, Total 0.6 mg/dL (0.2-1.0); Carbon Dioxide 28 mmol/L (20-31); Chloride 100 mmol/L (98-107); Sodium 141 mmol/L (136-145)
[2025-01-21 05:58] LABS: Albumin 2.9 g/dL (3.2-4.8); Blood Urea Nitrogen 25 mg/dL (9-23); Calcium 8.3 mg/dL (8.7-10.4); Glucose 112 mg/dL (74-106); Potassium 3.4 mmol/L (3.5-5.1); Total Protein 5.2 g/dL (5.7-8.2)
--- NOTE | 2025-01-21 10:54 | DVHPN2 ---
Reviewed: Care Plan Changes from previous H/P or p: No Changes Objective Vitals Vital Signs Date Time Temp Pulse Resp B/P (MAP) Pulse Ox O2 Delivery O2 Flow Rate FiO2 01/21/25 10:00 96 113/42 01/21/25 09:00 101.8 18 98 101.8 01/21/25 06:22 Nasal Cannula* 3 32 Intake/Output Intake and Output 01/21/25 07:00 Intake Total 850 ml Balance 850 ml Intake Oral 500 ml IV Total 50 ml Blood Product 300 ml # Voids 6 # Bowel Movements 7 Medications Current Medications Medications Dose Ordered Sig/Seth Route Start Time Stop Time Status Last Admin Dose Admin Acetaminophen 325 mg Q4HP PRN PO 01/10/25 00:30 01/15/25 15:13 325 MG Ondansetron HCl 4 mg Q4HP PRN IV 01/10/25 00:30 01/20/25 16:19 4 MG Enoxaparin Sodium 40 mg DAILY SC 01/10/25 10:00 01/16/25 10:22 40 MG Sodium Chloride 1,000 ml @ 60 mls/hr [id number] IV 01/10/25 03:30 01/18/25 15:30 60 MLS/HR Atorvastatin Calcium 40 mg HS PO 01/10/25 22:00 01/20/25 21:10 40 MG Carvedilol 3.125 mg Q12HR PO 01/10/25 22:00 01/20/25 21:10 3.125 MG Levothyroxine Sodium 125 mcg QAM@0600 PO 01/11/25 06:00 01/21/25 06:25 125 MCG Hydromorphone HCl 0.5 mg Q6HPRN PRN IV 01/12/25 10:30 01/19/25 22:48 0.5 MG Clopidogrel Bisulfate 75 mg DAILY PO 01/13/25 10:00 01/17/25 09:47 75 MG Aspirin 81 mg DAILY PO 01/13/25 10:00 01/17/25 09:46 81 MG Sodium Chloride 10 ml QSHIFT@10,22 IV 01/12/25 22:00 01/21/25 10:51 10 ML Diagnostic Test (Pha) 1 strip Q12HR 01/14/25 22:00 01/20/25 22:00 1 STRIP Insulin Human Regular Q12HR SC 01/14/25 22:00 Dextrose 50 ml UD PRN IV 01/14/25 14:15 Fluconazole 100 mg DAILY PO 01/16/25 10:00 01/21/25 10:46 100 MG Fluconazole 100 mg POSTDI PRN PO 01/15/25 12:45 Ertapenem 0.5 gm/ Sodium Chloride 50 ml @ 100 mls/hr DAILY IV 01/19/25 10:00 01/20/25 14:26 100 MLS/HR Midodrine 10 mg WD PRN PO 01/18/25 21:00 01/19/25 00:41 10 MG Albumin Human 100 ml @ 100 mls/hr WD PRN IV 01/18/25 21:00 01/19/25 02:44 100 MLS/HR Guaifenesin/ Dextromethorphan 10 ml TID PO 01/20/25 14:00 01/21/25 06:26 10 ML Albuterol 2.5 mg Q4HPRN PRN NEB 01/20/25 16:00 Laboratory Results Laboratory Tests 01/21/25 04:51 Chemistry Test 01/21/25 04:51 Albumin 2.9 g/dL (3.2-4.8) L Calcium Level 8.3 mg/dL (8.7-10.4) L Total Protein 5.2 g/dL (5.7-8.2) L LFT Test 01/21/25 04:51 Alanine Aminotransferase (ALT) 30 U/L (7-40) Alkaline Phosphatase 98 U/L (46-116) Aspartate Amino Transferase (AST) 50 U/L (13-40) H Total Bilirubin 0.6 mg/dL (0.2-1.0) Urinalysis Test 01/10/25 09:18 Urine Color Yellow (Yellow) Urine Clarity Turbid (Clear) H Urine pH 6.5 (5.0-9.0) Urine Specific [place] 1.019 (1.001-1.035) Urine Protein 2+ (Negative) H Urine Ketones Negative (Negative) Urine Blood Negative /uL (Negative) Urine Nitrite Negative (Negative) Urine Bilirubin Negative (Negative) Urine Urobilinogen Normal mg/dL (Negative) Urine Leukocyte Esterase Trace /uL (Negative) Urine RBC 7 /hpf (0 - 4) Urine Microscopic WBC 4 /HPF (0-5) Urine Squamous Epithelial Cells Few /hpf (<5) Urine Bacteria None seen /hpf (None Seen) Urine Yeast (Budding) Moderate /hpf (None Seen) Urine Glucose 1+ mg/dL (Normal) H Microbiology Microbiology Date/Time Source Procedure Growth Status 01/15/25 13:00 Foot Right Gram Stain - Final Complete 01/15/25 13:00 Anaerobic Culture - Final Bacteroides fragilis Complete 01/15/25 13:00 Aerobic Culture - Final Morganella morganii Klebsiella pneumoniae - ESBL Complete 01/10/25 09:18 Voided Urine Urine Culture - Final Presumptive Sully albicans Yeast, not Sully albicans Complete 01/09/25 23:45 Blood Blood Culture - Final NO GROWTH AFTER 5 DAYS OF INCUBATION. Complete Labs and/or images reviewed: Labs reviewed by me, Image(s) reviewed by me Assessment/Plan Assessment/Plan Sepsis Secondary to right foot infection wound cultures growing ESBL Klebsiella pneumoniae and Morganella RY Avila Zyvox and Zosyn, start Invanz 1 g IV daily for six weeks Nonhealing chronic right foot diabetic ulcer Osteomyelitis right 1st toe: consult for podiatric Dr. Crowder appreciated, status post incision and drainage to the bone by the highway truck driver Dr Crowder, blood cultures negative, patient had repeat incision and drainage on 01/15/2025, 01/17/2025 Severe peripheral arterial disease S/p BUSHING PRESS OPERATOR and atherotomy of the right peroneal artery by Dr. Sanchez 01/13/2025 Uncontrolled Diabetes: Insulin sliding scale ESRD on hemodialysis Anxiety Hypothyroidism Hypertension Hypercholesterolemia CHF exacerbation Severe anemia hemoglobin 7.0, transfuse 1 unit RBC, CT abdomen pelvis without contrast, GI consult for Dr. Will to rule out GI causes of bleeding History of ICD placement: Thrombocytopenia platelets 27K probably secondary to Zyvox, DC Zyvox, transfuse 3 units platelets, consult for ID Dr. Goldsmith UTI with yeast: Diflucan 200 mg p.o. daily Time spent 70 minutes Advanced care planning time 20 minutes Patient is full code Patient lives with her niece and critical care nurse specialist Janeen in [place] [phone] Patient has PICC line in place Spoke to patient's daughter zafar at the bedside, she wants patient to be discharged to [facility] [place] when stable Plan discussed with: Patient My Orders Orders - CANDIDA GALLEGOS MD Procedure Category Date Status Time Obtain Consent For: ORDERS 01/20/25 Transmitted 11:01 Vital Signs ROB 01/20/25 In Process 11:01 Obtain Consent For ROB 01/20/25 In Process Anesthesia 11:01 * Infectious Evangeline- Dr. CONS 01/20/25 Transmitted Morenita Goldsmith 11:06 Communication Order ORDERS 01/20/25 Transmitted 11:11 Guaifenesin-Dextromet PHA 01/20/25 In Process Liquid (Robitussin 14:00 Chest Portable XY 01/20/25 Resulted 16:55 * Gi Dvh Name Plate Stamper CONS 01/20/25 Transmitted 16:55 Communication Order ORDERS 01/20/25 Transmitted 16:55 Obtain Consent For: ORDERS 01/20/25 Transmitted 17:14 Vital Signs ROB 01/20/25 In Process 17:14 Obtain Consent For ROB 01/20/25 In Process Anesthesia 17:14 Ct Ab Pel Wo Con-No CT 01/21/25 Logged Oral Or Iv 07:00 Type And Screen BBK 01/21/25 In Process 08:00 Ct Ab Pel Wo Con-No CT 01/21/25 Verified Oral Or Iv 10:41 * Gi Dvh Name Plate Stamper CONS 01/21/25 Verified 10:41 Date of Service: Jan 21, 2025 Billing Provider: CANDIDA GALLEGOS MD Common Visit Codes: [id number] CARE 30-74 MIN CANDIDA GALLEGOS MD Jan 21, 2025 10:54
--- NOTE | 2025-01-21 11:23 | DVHINCON2 ---
Date of service: Jan 20, 2025 Family History: Diabetes mellitus G8 MOTHER G8 FATHER Allergies: Coded Allergies: NO KNOWN ALLERGIES (Unverified , 01/09/25) Home Meds Reported Medications Fluoxetine HCl (Fluoxetine HCl) 20 Mg Cap, 1 CAP PO DAILY for 30 Days, #30 01/15/25 Trazodone Hcl (Trazodone Hcl) 50 Mg Tab, 1 TAB PO DAILY for 30 Days, #30 01/15/25 Atorvastatin Calcium (ATORVASTATIN CALCIUM) 40 Mg Tab, 1 TAB PO DAILY for 30 Days, #30 01/15/25 Furosemide (Furosemide) 40 Mg Tab, 1 TAB PO BID for 30 Days, #60 01/15/25 Carvedilol (Carvedilol) 3.125 Mg Tab, 1 TAB PO BID for 30 Days, #60 01/15/25 Levothyroxine Sodium (Levothyroxine Sodium) 137 Mcg Tab, 1 TAB PO DAILY for 30 Days, #30 01/15/25 Current Medications Current Medications Medications (Trade) Dose Ordered Sig/Seth Route PRN Reason Start Time Stop Time Status Last Admin Guaifenesin/ Dextromethorphan (Robitussin-Dm Liquid) 10 ml TID PO 01/20/25 14:00 01/21/25 06:26 Albuterol (Ventolin Medneb) 2.5 mg Q4HPRN PRN NEB SHORTNESS OF BREATH 01/20/25 16:00 Vital Signs Vital Signs Date Time Temp Pulse Resp B/P (MAP) Pulse Ox O2 Delivery O2 Flow Rate FiO2 01/21/25 10:00 96 113/42 01/21/25 09:00 101.8 18 98 101.8 01/21/25 06:22 Nasal Cannula* 3 32 Labs/Diagnostic Data Labs Test 01/21/25 04:51 01/20/25 21:24 01/17/25 10:57 01/17/25 08:54 Range/Units White Blood Count 3.7 #L 4.4-10.8 10^3/uL Red Blood Count 2.18 L 4.0-5.20 10^6/uL Hemoglobin 7.0 *L 12.2-16.2 g/dL Hematocrit 20.6 #L 36.0-46.0 % Mean Corpuscular Volume 94.5 80.0-100.0 fL Mean Corpuscular Hemoglobin 32.2 H 28.0-32.0 pg Mean Corpuscular Hemoglobin Concent 34.1 32.0-36.0 g/dL Red Cell Distribution Width 15.9 H 11.8-14.3 % Platelet Count 39 L 140-450 10^3/uL Mean Platelet Volume 8.9 6.9-10.8 fL Neutrophils (%) (Auto) 93.1 H 37.0-80.0 % Lymphocytes (%) (Auto) 4.0 L 10.0-50.0 % Monocytes (%) (Auto) 2.7 0.0-12.0 % Eosinophils (%) (Auto) 0.0 0.0-7.0 % Basophils (%) (Auto) 0.2 0.0-2.0 % Neutrophils # (Auto) 3.5 1.6-8.6 10 ^3/uL Lymphocytes # (Auto) 0.1 L 0.4-5.4 10 ^3/uL Monocytes # (Auto) 0.1 0-1.3 10 ^3/uL Eosinophils # (Auto) 0 0-0.8 10 ^3/uL Basophils # (Auto) 0 0-0.2 10 ^3/uL Nucleated Red Blood Cells 0.0 % Sodium Level 141 136-145 mmol/L Potassium Level 3.4 L 3.5-5.1 mmol/L Chloride Level 100 98-107 mmol/L Carbon Dioxide Level 28 20-31 mmol/L Anion Gap 13 5-15 Blood Urea Nitrogen 25 H 9-23 mg/dL Creatinine 3.60 H 0.550-1.02 mg/dL Glomerular Filtration Rate Calc 14 >90 mL/min BUN/Creatinine Ratio 6.9 L 10.0-20.0 Serum Glucose 112 H 74-106 mg/dL Calcium Level 8.3 L 8.7-10.4 mg/dL Total Bilirubin 0.6 0.2-1.0 mg/dL Aspartate Amino Transferase (AST) 50 H 13-40 U/L Alanine Aminotransferase (ALT) 30 7-40 U/L Alkaline Phosphatase 98 46-116 U/L Total Protein 5.2 L 5.7-8.2 g/dL Albumin 2.9 L 3.2-4.8 g/dL POC Glucose 101 70-106 mg/dl Platelet Estimate Decrea Prothrombin Time 14.1 H 9.3-11.8 sec Prothrombin Time INR 1.37 H 0.9-1.15 Activated Partial Thromboplast Time 45.5 H 24.5-34.5 SEC Test 01/10/25 11:31 01/10/25 09:18 01/09/25 23:40 Range/Units Hemoglobin A1c 7.3 H <5.7 % A1C Phosphorus Level 3.4 2.4-5.1 mg/dL Magnesium Level 1.9 1.6-2.6 mg/dL Triglycerides Level 79 < 150 mg/dL Cholesterol Level 91 < 200 mg/dL LDL Cholesterol 35 < 100 mg/dL HDL Cholesterol 37 L 40-59 mg/dL Vitamin B12 Level > 4000 H 211-911 pg/mL Vitamin D 25-Hydroxy 63.2 30.0-100 ng/mL Thyroid Stimulating Hormone (TSH) 3.78 0.55-4.78 uIU/mL Urine Color Yellow Yellow Urine Clarity Turbid H Clear Urine pH 6.5 5.0-9.0 Urine Specific [place] 1.019 1.001-1.035 Urine Protein 2+ H Negative Urine Ketones Negative Negative Urine Blood Negative Negative /uL Urine Nitrite Negative Negative Urine Bilirubin Negative Negative Urine Urobilinogen Normal Negative mg/dL Urine Leukocyte Esterase Trace Negative /uL Urine RBC 7 0 - 4 /hpf Urine Microscopic WBC 4 0-5 /HPF Urine Squamous Epithelial Cells Few <5 /hpf Urine Bacteria None seen None Seen /hpf Urine Yeast (Budding) Moderate None Seen /hpf Urine Glucose 1+ H Normal mg/dL Urine Opiates Screen Neg NEGATIVE Urine Fentanyl Screen Neg NEGATIVE Urine Barbiturates Screen Neg NEGATIVE Urine Phencyclidine Screen Neg NEGATIVE Urine Amphetamines Screen Neg NEGATIVE Urine Benzodiazepines Screen Neg NEGATIVE Urine Cocaine Screen Neg NEGATIVE Urine Cannabinoids Screen Neg NEGATIVE Erythrocyte Sedimentation Rate 54 H 0-20 mm/hr Lactic Acid Level 1.3 0.4-2.0 mmol/L C-Reactive Protein High Sensitivity 4.44 H <1.0 mg/dL Hepatitis B Surface Antigen Negative Negative Hepatitis C Antibody Negative Negative Microbiology Date/Time Source Procedure Growth Status 01/15/25 13:00 Foot Right Gram Stain - Final Complete 01/15/25 13:00 Anaerobic Culture - Final Bacteroides fragilis Complete 01/15/25 13:00 Aerobic Culture - Final Morganella morganii Klebsiella pneumoniae - ESBL Complete 01/10/25 09:18 Voided Urine Urine Culture - Final Presumptive Sully albicans Yeast, not Sully albicans Complete 01/09/25 23:45 Blood Blood Culture - Final NO GROWTH AFTER 5 DAYS OF INCUBATION. Complete Problems(with codes): (1) Toe fracture, right (2) Toe osteomyelitis, right Plan/Recommendation ASSESSMENT AND PLAN: ID Problem List: -Right foot osteomyelitis (first distal phalanx) with large dorsal full- thickness soft tissue ulcer; gas extending along osseous structures to the first metatarsal joint; lateral extension toward fourth toelikely osteomyelitis -Peripheral arterial disease of lower extremities with tibial/peroneal stenoses; status post right lower extremity percutaneous transluminal angioplasty (peroneal artery) -End stage renal disease on dialysis; right upper arm AV fistula -Diabetes mellitus (HbA1c 7.3) -Hypertension -Hypothyroidism -Polymicrobial operative cultures (Bacteroides fragilis, rare group B streptococcus, Morganella morganii, ESBL Klebsiella) -Blood cultures: no growth to date -MRSA screen: negative -Urine culture: Sully albicans (assessed as colonization in anuric ESRD patient) -Pacemaker in place (on chest radiograph) -Anemia (Hgb 10.3) Assessment This is a 64-year-old male with ESRD on dialysis, diabetes, hypertension, and hypothyroidism, transferred from [facility] for right foot osteomyelitis after trauma to the right foot a few months prior. He developed purulent drainage from the right great toe and was treated with oral antibiotics, later transitioned to linezolid and piperacillin-tazobactam. Imaging is consistent with osteomyelitis of the right hallux with soft tissue ulceration and gas tracking along osseous structures. 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 Operative debridements (I\&Ds to bone) were performed on multiple dates, with wound VAC placed. Operative cultures revealed polymicrobial organisms including ESBL Klebsiella sensitive to ertapenem and meropenem; piperacillin-tazobactam was reported sensitive (REINALDO <8). Blood cultures show no growth to date; MRSA screen is negative. The patient is currently without pain and reports good vascular flow to the foot post-intervention. Plan: -Antimicrobial therapy: -Recommend six weeks of IV antibiotics: vancomycin plus ertapenem, per culture profile. -Fluconazole is not indicated, as urine Sully albicans represents colonization in the setting of anuria. -Wound care: -Continue wound VAC per Dr. Sifuentes recommendations. -Ongoing podiatry care; additional I\&Ds were completed with plan for closure at a later date as indicated. -Vascular: -Continue dual antiplatelet therapy following angioplasty to maintain patency and optimize perfusion. -Follow-up with vascular surgery as scheduled. -Follow-up: -Podiatry, vascular surgery, and Infectious Disease follow-up in 46 weeks. -Dialysis and care coordination: -Emphasize adherence with dialysis and clinic follow-ups to optimize wound healing and recovery. -Monitoring: -Continue to monitor for clinical response and for any signs of recurrent infection or ischemia. -Disposition: -Not specified in transcript. Isolation Precautions: Not provided in transcript. Plan is subject to change pending incorporation of new information/diagnostics. History: History source: Not specified. Mr. Sharri Ojeda is a 64-year-old male with ESRD on dialysis, diabetes, hypertension, and hypothyroidism, transferred for management of right foot osteomyelitis. Several months ago, he injured his right foot and later developed purulent drainage from the right great toe. He was treated with oral antibiotics and then admitted (01/09) for progressive infection. He has since undergone multiple surgical debridements to bone with deep cultures obtained, and a wound VAC was placed. He also underwent right lower extremity angiography and MANAGER [employer] DUTY of the peroneal artery with improved flow reported. He denies current pain. Review of Systems: A complete review of systems was not documented in the transcript. Pertinent positives and negatives are included in the History and Assessment. Past Medical History: -End stage renal disease on dialysis -Diabetes mellitus -Hypertension -Hypothyroidism Past Surgical History: -Multiple right foot incision and drainages (to bone), with wound VAC placement (dates referenced: initial, 01/15, and a final I\&D on a Wednesdayexact date not specified) -Right lower extremity angiography with percutaneous transluminal angioplasty (peroneal artery) Home Medications: Not provided in transcript. Allergies: Not provided in transcript. Family History: Not provided in transcript. Social History: Not provided in transcript. Objective: Vital Signs: -Temperature: 97.5 F -Pulse: 73 bpm; additional entry Pulse, 91 notedcontext unclear -Respiratory rate: 17/min -Blood pressure: 137/86 mmHg -Oxygenation: Setting while in room air noted; oxygen saturation not clearly documented Admission date referenced: 01/09 (per transcript) Weight/BMI: Not provided in transcript. Pertinent labs: -WBC 10.9 x10^3/L -Hemoglobin 10.3 g/dL -Platelets 187 x10^3/L -Hemoglobin A1c 7.3% -Creatinine 2.7 mg/dL; BUN 22 mg/dL; Sodium 140 mmol/L -AST 26 U/L; ALT 12 U/L; Alkaline phosphatase 135 U/L -Vitamin B12 4000 -TSH 3.74 Microbiology: -Blood cultures: no growth to date -MRSA screen: negative -Urine culture: Sully albicans (assessed as colonization) -Operative cultures (01/15): Bacteroides fragilis; rare beta-hemolytic group B Streptococcus; Morganella morganii; ESBL Klebsiella (susceptible to ertapenem, meropenem; ciprofloxacin intermediate; piperacillin-tazobactam sensitive, REINALDO <8) Current inpatient antibiotics (per transcript at time of evaluation): linezolid and piperacillin-tazobactam. Physical Exam: General: NAD Neck: Supple. No masses. HEENT: PERRL. Normal lids and conjunctiva. Moist mucous membranes. Oropharynx without lesions, exudates or excessive erythema. Normal appearance of the external aspects of the nose and ears. Heart: Regular rhythm, normal rate. No murmur. No lower extremity edema. Lungs: Normal respiratory effort. Clear to auscultation bilaterally. No wheezes. No crackles. Abdomen: Soft. Non-tender. Non-distended. No masses or abdominal hernia. Msk: No digital cyanosis. Normal strength and tone in all 4 limbs. Skin: Warm and dry, no rashes. Right distal toe erythema. Postoperative right great toe wound with wound VAC in place. Sacrum appears clean and dry. Neuro: Alert. No facial droop or slurred speech. Extra-ocular movements intact. Sensation intact to soft touch in all 4 limbs. Psych: Appropriate mood. Full affect. Oriented to person, place, time, and situation. Lines: Active Lines/Access: -Left upper arm PICC line (duration: not documented) -Right upper arm AV fistula (dialysis access) (duration: not documented) Devices: -Wound VAC to right foot Diagnostic Studies: Available diagnostic studies were reviewed. Significant findings include: -Laboratory and culture data as summarized above. -Imaging and vascular studies detailed below and in the Assessment. Pertinent Imaging: -CT Foot (date referenced during admission): Large dorsal full-thickness soft tissue ulcer of the medial forefoot; osteomyelitis and fragmentation of the first distal phalanx; gas extending along osseous structures to the first metatarsal joint; lateral involvement toward the fourth toelikely osteomyelitis. -Arterial Doppler (lower extremities): Right posterior tibial artery 5075% stenosis; no flow in right dorsalis pedis; physiologic/triphasic signal noted near right knee region. Left posterior tibial artery 5075% stenosis with monophasic waveform; no flow in left dorsalis pedis; no focal stenosis identified otherwise. -Angiography (10th): Right superficial femoral artery within normal limits. Peroneal artery with proximal 7080% stenosis and distal 6070% stenosis; mid posterior tibial artery 5060% stenosis. Flow to plantar arch via peroneal and posterior tibial arteries; distal digital vessel flow diminished. Intervention: MANAGER HE[employer] DUTY of right peroneal artery with two balloon inflations (~15 pushpa); small linear dissection noted, not flow-limiting; improvement documented. Dual antiplatelet therapy continued post-procedure. -Chest X-ray: Cardiomegaly; separate report notes right upper lobe airspace disease with air bronchograms; pacemaker in place with left chest pulse generator. Plan discussed with: Patient CONY TAYLOR MD Jan 21, 2025 11:23
--- NOTE | 2025-01-21 11:23 | DVHPN2 ---
Consult Progress Note Objective vital signs Vital Sign Date Time Temp Pulse Resp B/P (MAP) Pulse Ox O2 Delivery O2 Flow Rate FiO2 01/21/25 10:00 96 113/42 01/21/25 09:00 101.8 18 98 101.8 01/21/25 06:22 Nasal Cannula* 3 32 Total Intake and Output 01/20/25 01/20/25 01/21/25 15:00 23:00 07:00 Intake Total 250 ml 300 ml 300 ml Balance 250 ml 300 ml 300 ml medications Current Medications Medications Dose Ordered Sig/Seth Route Start Time Stop Time Status Last Admin Dose Admin Acetaminophen 325 mg Q4HP PRN PO 01/10/25 00:30 01/15/25 15:13 Ondansetron HCl 4 mg Q4HP PRN IV 01/10/25 00:30 01/20/25 16:19 Enoxaparin Sodium 40 mg DAILY SC 01/10/25 10:00 01/16/25 10:22 Sodium Chloride 1,000 ml @ 60 mls/hr [id number] IV 01/10/25 03:30 01/18/25 15:30 Atorvastatin Calcium 40 mg HS PO 01/10/25 22:00 01/20/25 21:10 Carvedilol 3.125 mg Q12HR PO 01/10/25 22:00 01/20/25 21:10 Levothyroxine Sodium 125 mcg QAM@0600 PO 01/11/25 06:00 01/21/25 06:25 Hydromorphone HCl 0.5 mg Q6HPRN PRN IV 01/12/25 10:30 01/19/25 22:48 Clopidogrel Bisulfate 75 mg DAILY PO 01/13/25 10:00 01/17/25 09:47 Aspirin 81 mg DAILY PO 01/13/25 10:00 01/17/25 09:46 Sodium Chloride 10 ml QSHIFT@10,22 IV 01/12/25 22:00 01/21/25 10:51 Diagnostic Test (Pha) 1 strip Q12HR 01/14/25 22:00 01/20/25 22:00 Insulin Human Regular Q12HR SC 01/14/25 22:00 Dextrose 50 ml UD PRN IV 01/14/25 14:15 Fluconazole 100 mg DAILY PO 01/16/25 10:00 01/21/25 10:46 Fluconazole 100 mg POSTDI PRN PO 01/15/25 12:45 Ertapenem 0.5 gm/ Sodium Chloride 50 ml @ 100 mls/hr DAILY IV 01/19/25 10:00 01/20/25 14:26 Midodrine 10 mg WD PRN PO 01/18/25 21:00 01/19/25 00:41 Albumin Human 100 ml @ 100 mls/hr WD PRN IV 01/18/25 21:00 01/19/25 02:44 Guaifenesin/ Dextromethorphan 10 ml TID PO 01/20/25 14:00 01/21/25 06:26 Albuterol 2.5 mg Q4HPRN PRN NEB 01/20/25 16:00 laboratory and microbiology Laboratory Tests 01/21/25 04:51 Test 01/21/25 04:51 Range/Units Serum Glucose 112 H 74-106 mg/dL Dietary Evaluation Review Comments: Nutrition Recommendation 1) CCHO 60gm + renal standard diet 2) Nephro-santosh 1 tab daily 3) Lexx 1 pk daily 4) Monitor PO intake, lab values, weight trend, and I/O Expected Outcomes/Goals: To meet >75% estimated needs Wound to improve Fu 3-5 days CC Plasma Assessment Blood Product Administration S: [id number] CONY TAYLOR MD Jan 21, 2025 11:23
[2025-01-21] MEDS ORDERED: VANCOMYCIN PER PHARMACY 0 MG IV SCH (12:15)
--- NOTE | 2025-01-21 15:50 | DVHPN2 ---
Progress Note - Dictate Date Seen: Jan 21, 2025 Medical Necessity Reason Pt with a Central, PICC or Fol: No Subjective Her cough is better today. Patient underwent blood transfusion today. vital signs Vital Sign Date Time Temp Pulse Resp B/P (MAP) Pulse Ox O2 Delivery O2 Flow Rate FiO2 01/21/25 15:00 97.8 72 20 130/47 97.8 01/21/25 13:00 96 01/21/25 08:10 Nasal Cannula* 3 32 Total Intake and Output 01/20/25 01/20/25 01/21/25 15:00 23:00 07:00 Intake Total 250 ml 300 ml 300 ml Balance 250 ml 300 ml 300 ml medications Current Medications Medications Dose Ordered Sig/Steh Route Start Time Stop Time Status Last Admin Dose Admin Acetaminophen 325 mg Q4HP PRN PO 01/10/25 00:30 01/21/25 12:17 325 MG Ondansetron HCl 4 mg Q4HP PRN IV 01/10/25 00:30 01/20/25 16:19 4 MG Sodium Chloride 1,000 ml @ 60 mls/hr [id number] IV 01/10/25 03:30 01/18/25 15:30 60 MLS/HR Atorvastatin Calcium 40 mg HS PO 01/10/25 22:00 01/20/25 21:10 40 MG Carvedilol 3.125 mg Q12HR PO 01/10/25 22:00 01/20/25 21:10 3.125 MG Levothyroxine Sodium 125 mcg QAM@0600 PO 01/11/25 06:00 01/21/25 06:25 125 MCG Clopidogrel Bisulfate 75 mg DAILY PO 01/13/25 10:00 01/17/25 09:47 75 MG Aspirin 81 mg DAILY PO 01/13/25 10:00 01/17/25 09:46 81 MG Sodium Chloride 10 ml QSHIFT@10,22 IV 01/12/25 22:00 01/21/25 10:51 10 ML Diagnostic Test (Pha) 1 strip Q12HR 01/14/25 22:00 01/21/25 14:05 1 STRIP Insulin Human Regular Q12HR SC 01/14/25 22:00 Dextrose 50 ml UD PRN IV 01/14/25 14:15 Fluconazole 100 mg POSTDI PRN PO 01/15/25 12:45 Cancel Ertapenem 0.5 gm/ Sodium Chloride 50 ml @ 100 mls/hr DAILY IV 01/19/25 10:00 01/20/25 14:26 100 MLS/HR Midodrine 10 mg WD PRN PO 01/18/25 21:00 01/19/25 00:41 10 MG Albumin Human 100 ml @ 100 mls/hr WD PRN IV 01/18/25 21:00 01/19/25 02:44 100 MLS/HR Guaifenesin/ Dextromethorphan 10 ml TID PO 01/20/25 14:00 01/21/25 06:26 10 ML Albuterol 2.5 mg Q4HPRN PRN NEB 01/20/25 16:00 Vancomycin HCl 0 ml @ 0 mls/hr PER PHARMACY IV 01/21/25 12:15 objective HEENT: No evidence of JVD, no oral ulcers. Pulmonary: Who wheezing on auscultation bilaterally Cardiovascular S1-S2, no S3 or S4 Abdomen: Bowel sounds positive, soft no rebound tenderness Skin: No rash Neurological: Alert, oriented, no focal weakness Right foot dressed laboratory and microbiology Laboratory Tests 01/21/25 04:51 Test 01/21/25 04:51 Range/Units Serum Glucose 112 H 74-106 mg/dL Assessment/Plan Assessment: ESRD on HD Right foot osteomyelitis Pneumonia DM HTN hypothyroidism Leukocytosis Anemia of CKD Hyperphosphatemia Secondary hyperparathyroidism Thrombocytopenia Plan: Dialysis TTS, last dialysis 01/20/2025 Receiving platelets and blood transfusion Albuterol q.4 hours p.r.n., Robitussin, chest x-ray reviewed Continue IV antibiotics per primary team Continue Coreg 3.125 mg PO BID KEVIN post HD as needed , goal Hb: 10-11 g/dl Possible SNF placement Thank you very much for allowing us to participate in the care of this patient Dietary Evaluation Review Comments: Nutrition Recommendation 1) CCHO 60gm + renal standard diet 2) Nephro-santosh 1 tab daily 3) Lexx 1 pk daily 4) Monitor PO intake, lab values, weight trend, and I/O Expected Outcomes/Goals: To meet >75% estimated needs Wound to improve Fu 3-5 days Plan discussed with: Patient CC Plasma Assessment Blood Product Administration S: [id number] JOSÉ LUIS TAM MD Jan 21, 2025 15:50
--- NOTE | 2025-01-21 16:11 | DVHINCON2 ---
Date of service: Jan 21, [address] Gerardo Reason for Consultation Anemia History of Present Illness 64-year-old female presented to the emergency room with complaints of nonhealing right foot wound started about three weeks before admission. The patient had some purulent discharge with foul smelling and came to the emergency room patient has got history of hypertension prediabetes hyperlipidemia congestive heart failure she is also status post ICD placement. With the end-stage renal disease on hemodialysis. Patient was found to be anemic with a hemoglobin dropping and hence the reason for the GI consult No gross hematemesis or melena patient had one episode of some vomiting but no hematemesis Past Medical History Hypertension dyslipidemia diabetes diabetes congestive heart failure status post ICD placement Past Surgical History tention disease osteomyelitis Family History: Diabetes mellitus G8 MOTHER G8 FATHER Family History Noncontributory Social History Denies smoking or drinking Allergies: Coded Allergies: NO KNOWN ALLERGIES (Unverified , 01/09/25) Home Meds Reported Medications Fluoxetine HCl (Fluoxetine HCl) 20 Mg Cap, 1 CAP PO DAILY for 30 Days, #30 01/15/25 Trazodone Hcl (Trazodone Hcl) 50 Mg Tab, 1 TAB PO DAILY for 30 Days, #30 01/15/25 Atorvastatin Calcium (ATORVASTATIN CALCIUM) 40 Mg Tab, 1 TAB PO DAILY for 30 Days, #30 01/15/25 Furosemide (Furosemide) 40 Mg Tab, 1 TAB PO BID for 30 Days, #60 01/15/25 Carvedilol (Carvedilol) 3.125 Mg Tab, 1 TAB PO BID for 30 Days, #60 01/15/25 Levothyroxine Sodium (Levothyroxine Sodium) 137 Mcg Tab, 1 TAB PO DAILY for 30 Days, #30 01/15/25 Current Medications Current Medications Medications (Trade) Dose Ordered Sig/Seth Route PRN Reason Start Time Stop Time Status Last Admin Vancomycin HCl 0 ml @ 0 mls/hr PER PHARMACY IV 01/21/25 12:15 Review of Systems Noncontributory Vital Signs Vital Signs Date Time Temp Pulse Resp B/P (MAP) Pulse Ox O2 Delivery O2 Flow Rate FiO2 01/21/25 15:00 97.8 72 20 130/47 97.8 01/21/25 13:00 96 01/21/25 08:10 Nasal Cannula* 3 32 Physical Exam Moderately built and nourished female in no acute distress HEENT examination mild pallor Lungs clear Vascular unremarkable Abdomen soft no tenderness no rigidity no masses Extremities no edema no varicosities Neuro no focal deficits Labs/Diagnostic Data Labs Test 01/21/25 14:03 01/21/25 04:51 01/17/25 10:57 01/17/25 08:54 Range/Units POC Glucose 114 H 70-106 mg/dl White Blood Count 3.7 #L 4.4-10.8 10^3/uL Red Blood Count 2.18 L 4.0-5.20 10^6/uL Hemoglobin 7.0 *L 12.2-16.2 g/dL Hematocrit 20.6 #L 36.0-46.0 % Mean Corpuscular Volume 94.5 80.0-100.0 fL Mean Corpuscular Hemoglobin 32.2 H 28.0-32.0 pg Mean Corpuscular Hemoglobin Concent 34.1 32.0-36.0 g/dL Red Cell Distribution Width 15.9 H 11.8-14.3 % Platelet Count 39 L 140-450 10^3/uL Mean Platelet Volume 8.9 6.9-10.8 fL Neutrophils (%) (Auto) 93.1 H 37.0-80.0 % Lymphocytes (%) (Auto) 4.0 L 10.0-50.0 % Monocytes (%) (Auto) 2.7 0.0-12.0 % Eosinophils (%) (Auto) 0.0 0.0-7.0 % Basophils (%) (Auto) 0.2 0.0-2.0 % Neutrophils # (Auto) 3.5 1.6-8.6 10 ^3/uL Lymphocytes # (Auto) 0.1 L 0.4-5.4 10 ^3/uL Monocytes # (Auto) 0.1 0-1.3 10 ^3/uL Eosinophils # (Auto) 0 0-0.8 10 ^3/uL Basophils # (Auto) 0 0-0.2 10 ^3/uL Nucleated Red Blood Cells 0.0 % Sodium Level 141 136-145 mmol/L Potassium Level 3.4 L 3.5-5.1 mmol/L Chloride Level 100 98-107 mmol/L Carbon Dioxide Level 28 20-31 mmol/L Anion Gap 13 5-15 Blood Urea Nitrogen 25 H 9-23 mg/dL Creatinine 3.60 H 0.550-1.02 mg/dL Glomerular Filtration Rate Calc 14 >90 mL/min BUN/Creatinine Ratio 6.9 L 10.0-20.0 Serum Glucose 112 H 74-106 mg/dL Calcium Level 8.3 L 8.7-10.4 mg/dL Total Bilirubin 0.6 0.2-1.0 mg/dL Aspartate Amino Transferase (AST) 50 H 13-40 U/L Alanine Aminotransferase (ALT) 30 7-40 U/L Alkaline Phosphatase 98 46-116 U/L Total Protein 5.2 L 5.7-8.2 g/dL Albumin 2.9 L 3.2-4.8 g/dL Platelet Estimate Decrea Prothrombin Time 14.1 H 9.3-11.8 sec Prothrombin Time INR 1.37 H 0.9-1.15 Activated Partial Thromboplast Time 45.5 H 24.5-34.5 SEC Test 01/10/25 11:31 01/10/25 09:18 01/09/25 23:40 Range/Units Hemoglobin A1c 7.3 H <5.7 % A1C Phosphorus Level 3.4 2.4-5.1 mg/dL Magnesium Level 1.9 1.6-2.6 mg/dL Triglycerides Level 79 < 150 mg/dL Cholesterol Level 91 < 200 mg/dL LDL Cholesterol 35 < 100 mg/dL HDL Cholesterol 37 L 40-59 mg/dL Vitamin B12 Level > 4000 H 211-911 pg/mL Vitamin D 25-Hydroxy 63.2 30.0-100 ng/mL Thyroid Stimulating Hormone (TSH) 3.78 0.55-4.78 uIU/mL Urine Color Yellow Yellow Urine Clarity Turbid H Clear Urine pH 6.5 5.0-9.0 Urine Specific [place] 1.019 1.001-1.035 Urine Protein 2+ H Negative Urine Ketones Negative Negative Urine Blood Negative Negative /uL Urine Nitrite Negative Negative Urine Bilirubin Negative Negative Urine Urobilinogen Normal Negative mg/dL Urine Leukocyte Esterase Trace Negative /uL Urine RBC 7 0 - 4 /hpf Urine Microscopic WBC 4 0-5 /HPF Urine Squamous Epithelial Cells Few <5 /hpf Urine Bacteria None seen None Seen /hpf Urine Yeast (Budding) Moderate None Seen /hpf Urine Glucose 1+ H Normal mg/dL Urine Opiates Screen Neg NEGATIVE Urine Fentanyl Screen Neg NEGATIVE Urine Barbiturates Screen Neg NEGATIVE Urine Phencyclidine Screen Neg NEGATIVE Urine Amphetamines Screen Neg NEGATIVE Urine Benzodiazepines Screen Neg NEGATIVE Urine Cocaine Screen Neg NEGATIVE Urine Cannabinoids Screen Neg NEGATIVE Erythrocyte Sedimentation Rate 54 H 0-20 mm/hr Lactic Acid Level 1.3 0.4-2.0 mmol/L C-Reactive Protein High Sensitivity 4.44 H <1.0 mg/dL Hepatitis B Surface Antigen Negative Negative Hepatitis C Antibody Negative Negative Microbiology Date/Time Source Procedure Growth Status 01/15/25 13:00 Foot Right Gram Stain - Final Complete 01/15/25 13:00 Anaerobic Culture - Final Bacteroides fragilis Complete 01/15/25 13:00 Aerobic Culture - Final Morganella morganii Klebsiella pneumoniae - ESBL Complete 01/10/25 09:18 Voided Urine Urine Culture - Final Presumptive Sully albicans Yeast, not Sully albicans Complete 01/09/25 23:45 Blood Blood Culture - Final NO GROWTH AFTER 5 DAYS OF INCUBATION. Complete Assessment 64-year-old female with a history of nonhealing right foot wound with a history of diabetes hypertension dyslipidemia congestive heart failure status post ICD placement hemoglobin has dropped from 10 on admission no history of any ulcer disease GI consult is for possible GI pathology for the anemia Plan/Recommendation Recommend stool studies for occult blood Correct the platelets We will also recommend CT scan of the abdomen and pelvis with oral contrast but no IV contrast If hemoglobin continues to drop depending upon the CT results may need endoscopic workup including EGD and colon especially the stools are positive Thank you Dr. Rico Plan discussed with: Patient ALEXANDRE RICO MD Jan 21, 2025 16:11
[2025-01-21] MEDS: VANCOMYCIN 1GM/250ML KIT 250 ML IV ONE (18:07)
[2025-01-22] VITALS (20 sets, daily range): BP systolic 86–123; BP diastolic 38–83; PULSE 68–85; RESP 16–70; TEMP 96.2–99.8; O2SAT 91–96
[2025-01-22] MEDS: ALBUMIN 5% 250 ML IV ONE (04:52)
[2025-01-22 09:27] LABS: Hematocrit 23.2 % (36.0-46.0); Hemoglobin 7.9 g/dL (12.2-16.2)
[2025-01-22 09:29] LABS: Mean Corpuscular Hemoglobin 31.8 pg (28.0-32.0); Mean Corpuscular Volume 93.0 fL (80.0-100.0); Nucleated Red Blood Cells % 0.1 %
--- NOTE | 2025-01-22 09:34 | DVH ---
CT CT AB PEL WO CON-NO ORAL OR IV INDICATION: severe anemia EXAM DATE: 01/22/2025 08:15 AM COMPARISON: None RADIATION DOSE: CTDIvol: 16.73 mGy, DLP: 923.2 mGy*cm PROCEDURE: Helical CT images were obtained of the abdomen and pelvis with IV contrast Sagittal and co johanna reconstructions are provided. ORAL CONTRAST: None. ADDITIONAL IMAGES / REFORMATS: None All CT s cans at this medical facility are performed using dose modulation techniques as appropriate to a perf ormed exam including the following: Automated exposure control was utilized; adjustment of the MA and /or KV according to patient size; and use of iterative reconstruction technique. FINDINGS: LUNG BASE: Bilateral perihilar ground glass opacity / consolidation. LIVER: Normal. GALLBLADDER AND BILIARY TREE: Absent gallbladder. No intra- or extrahepatic biliary ductal dilation. PANCREAS: Normal. SPLEEN: Normal. BOWEL: Normal. ADRENALS: Normal. KIDNEYS AND URETER: Normal. BLADDER: Mild contrast material is seen in the bladder. REPRODUCTIVE ORGANS: Normal. LYMPH NODES:No lymphadenopathy. PERITONEUM: Trace ascites is present. VESSELS: Scattered atherosclerotic calcifications are noted. RETROPERITONEUM: Normal. ABDOMINAL WALL: Mild anasarca. Post surgical changes are seen in the left groin. Small umbilical her christina. BONES: Scattered osseous degenerative changes are noted. IMPRESSION: Bilateral perihilar ground glass opacity / consolidation consistent with pulmonary edema. Trace abdominal ascites.
--- NOTE | 2025-01-22 10:46 | DVHPN2 ---
Reviewed: Care Plan Changes from previous H/P or p: No Changes Objective Vitals Vital Signs Date Time Temp Pulse Resp B/P (MAP) Pulse Ox O2 Delivery O2 Flow Rate FiO2 01/22/25 10:30 97.7 69 18 92/51 97.7 01/22/25 09:00 95 01/22/25 08:39 2.0 28 01/21/25 20:00 Nasal Cannula* Intake/Output Intake and Output 01/22/25 07:00 Intake Total 2083 ml Balance 2083 ml Intake Oral 725 ml IV Total 790 ml Blood Product 568 ml # Voids 4 Medications Current Medications Medications Dose Ordered Sig/Seth Route Start Time Stop Time Status Last Admin Dose Admin Acetaminophen 325 mg Q4HP PRN PO 01/10/25 00:30 01/22/25 00:29 325 MG Ondansetron HCl 4 mg Q4HP PRN IV 01/10/25 00:30 01/20/25 16:19 4 MG Sodium Chloride 1,000 ml @ 60 mls/hr [id number] IV 01/10/25 03:30 01/21/25 17:25 60 MLS/HR Atorvastatin Calcium 40 mg HS PO 01/10/25 22:00 01/21/25 22:50 40 MG Carvedilol 3.125 mg Q12HR PO 01/10/25 22:00 01/21/25 22:49 3.125 MG Levothyroxine Sodium 125 mcg QAM@0600 PO 01/11/25 06:00 01/22/25 05:58 125 MCG Clopidogrel Bisulfate 75 mg DAILY PO 01/13/25 10:00 01/17/25 09:47 75 MG Aspirin 81 mg DAILY PO 01/13/25 10:00 01/17/25 09:46 81 MG Sodium Chloride 10 ml QSHIFT@10,22 IV 01/12/25 22:00 01/21/25 22:48 10 ML Diagnostic Test (Pha) 1 strip Q12HR 01/14/25 22:00 01/21/25 22:50 1 STRIP Insulin Human Regular Q12HR SC 01/14/25 22:00 Dextrose 50 ml UD PRN IV 01/14/25 14:15 Fluconazole 100 mg POSTDI PRN PO 01/15/25 12:45 Cancel Ertapenem 0.5 gm/ Sodium Chloride 50 ml @ 100 mls/hr DAILY IV 01/19/25 10:00 01/21/25 17:25 100 MLS/HR Midodrine 10 mg WD PRN PO 01/18/25 21:00 01/19/25 00:41 10 MG Albumin Human 100 ml @ 100 mls/hr WD PRN IV 01/18/25 21:00 01/19/25 02:44 100 MLS/HR Guaifenesin/ Dextromethorphan 10 ml TID PO 01/20/25 14:00 01/22/25 05:57 10 ML Albuterol 2.5 mg Q4HPRN PRN NEB 01/20/25 16:00 Vancomycin HCl 0 ml @ 0 mls/hr PER PHARMACY IV 01/21/25 12:15 Laboratory Results Laboratory Tests 01/21/25 04:51 01/22/25 09:07 Urinalysis Test 01/10/25 09:18 Urine Color Yellow (Yellow) Urine Clarity Turbid (Clear) H Urine pH 6.5 (5.0-9.0) Urine Specific [place] 1.019 (1.001-1.035) Urine Protein 2+ (Negative) H Urine Ketones Negative (Negative) Urine Blood Negative /uL (Negative) Urine Nitrite Negative (Negative) Urine Bilirubin Negative (Negative) Urine Urobilinogen Normal mg/dL (Negative) Urine Leukocyte Esterase Trace /uL (Negative) Urine RBC 7 /hpf (0 - 4) Urine Microscopic WBC 4 /HPF (0-5) Urine Squamous Epithelial Cells Few /hpf (<5) Urine Bacteria None seen /hpf (None Seen) Urine Yeast (Budding) Moderate /hpf (None Seen) Urine Glucose 1+ mg/dL (Normal) H Microbiology Microbiology Date/Time Source Procedure Growth Status 01/15/25 13:00 Foot Right Gram Stain - Final Complete 01/15/25 13:00 Anaerobic Culture - Final Bacteroides fragilis Complete 01/15/25 13:00 Aerobic Culture - Final Morganella morganii Klebsiella pneumoniae - ESBL Complete 01/10/25 09:18 Voided Urine Urine Culture - Final Presumptive Sully albicans Yeast, not Sully albicans Complete 01/09/25 23:45 Blood Blood Culture - Final NO GROWTH AFTER 5 DAYS OF INCUBATION. Complete Labs and/or images reviewed: Labs reviewed by me, Image(s) reviewed by me Assessment/Plan Assessment/Plan Sepsis Secondary to right foot infection wound cultures growing ESBL Klebsiella pneumoniae and Morganella Morgagnidia, RY Zyvox and Zosyn, start Invanz 1 g IV daily for six weeks Nonhealing chronic right foot diabetic ulcer Osteomyelitis right 1st toe: consult for podiatric Dr. Crowder appreciated, status post incision and drainage to the bone by the cotton grower Dr Crowder, blood cultures negative, patient had repeat incision and drainage on 01/15/2025, 01/17/2025 Severe peripheral arterial disease S/p PERINATAL INSTRUCTOR and atherotomy of the right peroneal artery by Dr. Sanchez 01/13/2025 Uncontrolled Diabetes: Insulin sliding scale ESRD on hemodialysis Anxiety Hypothyroidism Hypertension Hypercholesterolemia CHF exacerbation Severe anemia hemoglobin 7.0, transfuse 1 unit RBC, CT abdomen pelvis without contrast, GI consult for Dr. Will to rule out GI causes of bleeding stool for occult blood positive History of ICD placement: Thrombocytopenia platelets 27K probably secondary to Zyvox, DC Zyvox, transfuse 3 units platelets, consult for ID Dr. Goldsmith UTI with yeast: Diflucan 200 mg p.o. daily Time spent 70 minutes Advanced care planning time 20 minutes Patient is full code Patient lives with her niece and primary care nurse practitioner Janeen in [place] [phone] Patient has PICC line in place Spoke to patient's daughter zafar at the bedside, she wants patient to be discharged to [facility] [place] when stable Plan discussed with: Patient My Orders Orders - CANDIDA GALLEGOS MD Procedure Category Date Status Time * Gi Dvh Hog Raiser CONS 01/21/25 Transmitted 10:41 Ct Ab Pel Wo Con-No CT 01/22/25 Resulted Oral Or Iv 07:00 Date of Service: Jan 22, 2025 Billing Provider: CANDIDA GALLEGOS MD Common Visit Codes: [id number] CARE 30-74 MIN CANDIDA GALLEGOS MD Jan 22, 2025 10:46
--- NOTE | 2025-01-22 17:25 | DVHPN2 ---
Progress Note - Dictate Date Seen: Jan 22, 2025 Medical Necessity Reason Pt with a Central, PICC or Fol: No Subjective No active GI bleeding vital signs Vital Sign Date Time Temp Pulse Resp B/P (MAP) Pulse Ox O2 Delivery O2 Flow Rate FiO2 01/22/25 16:36 97.8 71 16 91/46 (61) 91 97.8 01/22/25 08:39 2.0 28 01/22/25 08:30 Nasal Cannula* Total Intake and Output 01/21/25 01/21/25 01/22/25 15:00 23:00 07:00 Intake Total 300 ml 1515 ml 268 ml Balance 300 ml 1515 ml 268 ml medications Current Medications Medications Dose Ordered Sig/Seth Route Start Time Stop Time Status Last Admin Dose Admin Acetaminophen 325 mg Q4HP PRN PO 01/10/25 00:30 01/22/25 00:29 325 MG Ondansetron HCl 4 mg Q4HP PRN IV 01/10/25 00:30 01/20/25 16:19 4 MG Sodium Chloride 1,000 ml @ 60 mls/hr [id number] IV 01/10/25 03:30 01/21/25 17:25 60 MLS/HR Atorvastatin Calcium 40 mg HS PO 01/10/25 22:00 01/21/25 22:50 40 MG Carvedilol 3.125 mg Q12HR PO 01/10/25 22:00 01/21/25 22:49 3.125 MG Levothyroxine Sodium 125 mcg QAM@0600 PO 01/11/25 06:00 01/22/25 05:58 125 MCG Sodium Chloride 10 ml QSHIFT@10,22 IV 01/12/25 22:00 01/22/25 10:00 10 ML Diagnostic Test (Pha) 1 strip Q12HR 01/14/25 22:00 01/22/25 10:00 1 STRIP Insulin Human Regular Q12HR SC 01/14/25 22:00 Dextrose 50 ml UD PRN IV 01/14/25 14:15 Fluconazole 100 mg POSTDI PRN PO 01/15/25 12:45 Cancel Ertapenem 0.5 gm/ Sodium Chloride 50 ml @ 100 mls/hr DAILY IV 01/19/25 10:00 01/22/25 14:00 100 MLS/HR Midodrine 10 mg WD PRN PO 01/18/25 21:00 01/19/25 00:41 10 MG Albumin Human 100 ml @ 100 mls/hr WD PRN IV 01/18/25 21:00 01/19/25 02:44 100 MLS/HR Guaifenesin/ Dextromethorphan 10 ml TID PO 01/20/25 14:00 01/22/25 05:57 10 ML Albuterol 2.5 mg Q4HPRN PRN NEB 01/20/25 16:00 Vancomycin HCl 0 ml @ 0 mls/hr PER PHARMACY IV 01/21/25 12:15 objective HEENT: No evidence of JVD, no oral ulcers. Pulmonary: Bilateral good air entry Cardiovascular S1-S2, no S3 or S4 Abdomen: Bowel sounds positive, soft no rebound tenderness Skin: No rash Neurological: Alert, oriented, no focal weakness Right foot dressed laboratory and microbiology Laboratory Tests 01/22/25 09:07 01/21/25 04:51 Test 01/21/25 04:51 Range/Units Serum Glucose 112 H 74-106 mg/dL Problem List ESRD on HD Right foot osteomyelitis Pneumonia DM HTN hypothyroidism Leukocytosis Anemia of CKD Hyperphosphatemia Secondary hyperparathyroidism Thrombocytopenia Assessment/Plan Dialysis TTS Receiving platelets and blood transfusion Hematology evaluation KEVIN post HD as needed , goal Hb: 10-11 g/dl Dietary Evaluation Review Comments: Nutrition Recommendation 1) CCHO 60gm + renal standard diet 2) Nephro-santosh 1 tab daily 3) Lexx 1 pk daily 4) Monitor PO intake, lab values, weight trend, and I/O Expected Outcomes/Goals: To meet >75% estimated needs Wound to improve Fu 3-5 days Plan discussed with: Other CC Plasma Assessment Blood Product Administration S: [id number] RENETTA LORENZ MD Jan 22, 2025 17:25
--- NOTE | 2025-01-22 21:26 | DVHPN2 ---
Progress Note - Dictate Date Seen: Jan 22, 2025 Medical Necessity Reason Pt with a Central, PICC or Fol: No Subjective Patient is doing stable but hemoglobin is still low Platelets are also very low etiology is unclear any hematological disorders also can not be excluded vital signs Vital Sign Date Time Temp Pulse Resp B/P (MAP) Pulse Ox O2 Delivery O2 Flow Rate FiO2 01/22/25 16:36 97.8 71 16 91/46 (61) 91 97.8 01/22/25 08:39 2.0 28 01/22/25 08:30 Nasal Cannula* Total Intake and Output 01/21/25 01/21/25 01/22/25 15:00 23:00 07:00 Intake Total 300 ml 1515 ml 268 ml Balance 300 ml 1515 ml 268 ml medications Current Medications Medications Dose Ordered Sig/Seth Route Start Time Stop Time Status Last Admin Dose Admin Acetaminophen 325 mg Q4HP PRN PO 01/10/25 00:30 01/22/25 00:29 325 MG Ondansetron HCl 4 mg Q4HP PRN IV 01/10/25 00:30 01/20/25 16:19 4 MG Sodium Chloride 1,000 ml @ 60 mls/hr [id number] IV 01/10/25 03:30 01/21/25 17:25 60 MLS/HR Atorvastatin Calcium 40 mg HS PO 01/10/25 22:00 01/21/25 22:50 40 MG Carvedilol 3.125 mg Q12HR PO 01/10/25 22:00 01/21/25 22:49 3.125 MG Levothyroxine Sodium 125 mcg QAM@0600 PO 01/11/25 06:00 01/22/25 05:58 125 MCG Sodium Chloride 10 ml QSHIFT@,22 IV 01/12/25 22:00 01/22/25 10:00 10 ML Diagnostic Test (Pha) 1 strip Q12HR 01/14/25 22:00 01/22/25 10:00 1 STRIP Insulin Human Regular Q12HR SC 01/14/25 22:00 Dextrose 50 ml UD PRN IV 01/14/25 14:15 Fluconazole 100 mg POSTDI PRN PO 01/15/25 12:45 Cancel Ertapenem 0.5 gm/ Sodium Chloride 50 ml @ 100 mls/hr DAILY IV 01/19/25 10:00 01/22/25 14:00 100 MLS/HR Midodrine 10 mg WD PRN PO 01/18/25 21:00 01/19/25 00:41 10 MG Albumin Human 100 ml @ 100 mls/hr WD PRN IV 01/18/25 21:00 01/19/25 02:44 100 MLS/HR Guaifenesin/ Dextromethorphan 10 ml TID PO 01/20/25 14:00 01/22/25 05:57 10 ML Albuterol 2.5 mg Q4HPRN PRN NEB 01/20/25 16:00 Vancomycin HCl 0 ml @ 0 mls/hr PER PHARMACY IV 01/21/25 12:15 objective Abdomen is soft nontender no masses laboratory and microbiology Laboratory Tests 01/22/25 09:07 01/21/25 04:51 Test 01/21/25 04:51 Range/Units Serum Glucose 112 H 74-106 mg/dL Assessment/Plan 64-year-old female with a history of nonhealing right foot wound with a history of diabetes hypertension dyslipidemia congestive heart failure status post ICD placement hemoglobin has dropped from 10 on admission no history of any ulcer disease GI consult is for possible GI pathology for the anemia Hence platelets are low still had received platelets but still low No Gross bleeding but anemic still Plans We will recommend to get a Hematology consult will continue to correct the platelets May need GI workup including endoscopic when more stable hematologically Thank you Dr. Will Dietary Evaluation Review Comments: Nutrition Recommendation 1) CCHO 60gm + renal standard diet 2) Nephro-santosh 1 tab daily 3) Lexx 1 pk daily 4) Monitor PO intake, lab values, weight trend, and I/O Expected Outcomes/Goals: To meet >75% estimated needs Wound to improve Fu 3-5 days Plan discussed with: Patient CC Plasma Assessment Blood Product Administration S: [id number] ALEXANDRE WILL MD Jan 22, 2025 21:26
[2025-01-23] VITALS (94 sets, daily range): BP systolic 69–178; BP diastolic 18–67; PULSE 62–121; RESP 15–37; TEMP 96.7–98.5; O2SAT 88–100
[2025-01-23] MEDS: SODIUM CHLORIDE 0.9% 500 ML IV ONE (01:00)
[2025-01-23] MEDS: DEXTROSE (50%) 50ML SYRG IV PRN (03:21)
[2025-01-23] MEDS: ALBUTEROL SULF 2.5 MG/0.5ML(0.5%) NEB SOLN NEB PRN (03:24)
[2025-01-23] MEDS: PHENYLEPHRINE IV 250 ML IV SCH (04:32)
[2025-01-23] MEDS: SODIUM CHL 0.9% 1000 ML BAG XX ONE (07:00)
[2025-01-23 08:33] LABS: Chloride 100 mmol/L (98-107); Potassium 3.8 mmol/L (3.5-5.1); Sodium 138 mmol/L (136-145)
[2025-01-23 08:34] LABS: Anion Gap 20 (5-15)
[2025-01-23 08:38] LABS: Base Excess -3.2 mmol/L (-2.0-3.0)
[2025-01-23 08:39] LABS: BUN/Creatinine Ratio 8.3 (10.0-20.0); Glucose 90 mg/dL (74-106)
[2025-01-23 08:49] LABS: Blood Urea Nitrogen 41 mg/dL (9-23); Calcium 7.5 mg/dL (8.7-10.4); Carbon Dioxide 18 mmol/L (20-31)
[2025-01-23 09:19] LABS: Hematocrit 28.3 % (36.0-46.0); Hemoglobin 8.7 g/dL (12.2-16.2); Mean Corpuscular Hemoglobin 31.5 pg (28.0-32.0); Mean Corpuscular Volume 102.9 fL (80.0-100.0); Nucleated Red Blood Cells % 0.2 %
[2025-01-23 09:35] LABS: INR 1.74 (0.9-1.15); Partial Thromboplastin Time 48.4 SEC (24.5-34.5); Prothrombin Time 17.5 sec (9.3-11.8)
[2025-01-23 09:39] LABS: Lactic Acid w/Reflex 2.5 mmol/L (0.4-2.0)
[2025-01-23] MEDS: ROCURONIUM 10MG/ML 10ML VIAL IV ONE (13:25)
[2025-01-23] MEDS: ETOMIDATE (2MG/ML) 20ML VIAL IV ONE ×2 (13:25→15:31)
[2025-01-23] MEDS: NOREPINEPHRINE 8 MG/250ML KIT 250 ML IV ONE (13:27)
[2025-01-23] MEDS: NOREPINEPHRINE 8 MG/250ML KIT 250 ML IV SCH (13:31)
[2025-01-23] MEDS: fentaNYL Drip 2500mCg/250mlNS 250 ML IV SCH (13:31)
[2025-01-23] MEDS: fentaNYL Drip 2500mCg/250mlNS 250 ML IV ONE (13:38)
[2025-01-23] MEDS: MIDAZOLAM DRIP 50 mg/50mL 50 ML IV ONE (13:39)
--- NOTE | 2025-01-23 14:33 | DVH ---
EXAM: XY CHEST PORTABLE HISTORY: Intubation/OG Placement/Central line confirmation COMPARISON: XY CHEST PORTABLE on DOS: 01/20/25, XY CHEST XRAY 1 VIEW on DOS: 01/10/25 TECHNIQUE: Portable AP view of the chest was performed. FINDINGS: Endotracheal tube is identified with its tip 1.5 cm above the rod. OG tube is identified with its tip in the stomach about 18 cm distal to the GE junction. There is a left IJ central line with its ti p in the mid to lower SVC. Left chest AICD and Surgical clips about the aortic arch are re-identified . There are increased dense infiltrates throughout the right lung, predominating in the mid lung. The re is diffuse bilateral interstitial prominence. No pneumothorax. The heart is enlarged. IMPRESSION: 1. Interval intubation with endotracheal tube tip 1.5 cm above the rod. 2. Interval placement of OG tube with its tip in the stomach. 3. Interval placement of a left IJ central line in good position without pneumothorax. 4. Worsening right-sided pneumonia. 5. Cardiomegaly and left chest AICD with increased interstitial prominence suggestive of CHF exacerba tion.
[2025-01-23 15:03] LABS: Base Excess 3.8 mmol/L (-2.0-3.0)
[2025-01-23] MEDS: MIDAZOLAM DRIP 50 mg/50mL 50 ML IV SCH (15:34)
[2025-01-23] MEDS: NOREPINEPHRINE BITARTRATE 32 MG in SODIUM CHL 0.9% 218 ML IV SCH (16:00)
--- NOTE | 2025-01-23 16:04 | DVHNC2 ---
Intubation Indication: Respiratory Insufficiency Prep: Preoxygenation Pretreated with: Sedation (etomidate) Medicated with: Nothing Intubation Approach: Orotracheal Intubation size: cm (8) Date of Service: Jan 23, 2025 Billing Provider: ROBERTO VASQUEZ MD Common Visit Codes: PROCEDURE ONLY Procedure Codes: [id number] ROBERTO VASQUEZ MD Jan 23, 2025 16:04
--- NOTE | 2025-01-23 16:05 | DVHNC2 ---
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 Indication: Hypotension Room prepared for procedure: Yes Signals Collection Technician performed hand hygien: Yes Maximal sterile barrier precau: Mask/Eye shield, Sterile gown, Cap, Sterlie gloves, Large sterlie drape Skin Preparation: Chlorhexidine gluconate Skin preparation completely dr: Yes Insertion site: Left, Internal jugular Central line catheter type: Eda-[id number]-[id number] dialysis Number of lumens: 3 Central line exchanged over a: Yes Post Assessment: Chest X-Ray, No Pneumothorax Date of Service: Jan 23, 2025 Billing Provider: ROBERTO VASQUEZ MD Common Visit Codes: PROCEDURE ONLY Procedure Codes: [id number] NON-TUNNEL CV CATH ROBERTO VASQUEZ MD Jan 23, 2025 16:05
--- NOTE | 2025-01-23 16:27 | DVHINCON2 ---
Date of service: Jan 23, [address] Bowie Reason for Consultation Acute respiratory failure History of Present Illness History Source: Patient, RN Notes, MD Notes Exam Limitations: Clinical condition HPI Patient is a 64-year old lady with a history of ESRD on HD, diabetes, hypertension and hypothyroidism who presented with purulent drainage of the r ight foot and toe. Was seen in the emergency room where she was admitted for osteomyelitis and was admitted for IV antibiotics. During admission, patient required upgrade to ICU for worsening mentation and respiratory status. She was subsequently intubated by Dr. Bowie and placed on mechanical ventilation, initial settings RR 16, tidal volume 500, PEEP 5, FiO2 100%. Chest x-ray shows worsening infiltrates of the right lung consistent with pneumonia and pulmonology was consulted to assist in management. Home Meds Reported Medications Fluoxetine HCl (Fluoxetine HCl) 20 Mg Cap, 1 CAP PO DAILY for 30 Days, #30 01/15/25 Trazodone Hcl (Trazodone Hcl) 50 Mg Tab, 1 TAB PO DAILY for 30 Days, #30 01/15/25 Atorvastatin Calcium (ATORVASTATIN CALCIUM) 40 Mg Tab, 1 TAB PO DAILY for 30 Days, #30 01/15/25 Furosemide (Furosemide) 40 Mg Tab, 1 TAB PO BID for 30 Days, #60 01/15/25 Carvedilol (Carvedilol) 3.125 Mg Tab, 1 TAB PO BID for 30 Days, #60 01/15/25 Levothyroxine Sodium (Levothyroxine Sodium) 137 Mcg Tab, 1 TAB PO DAILY for 30 Days, #30 01/15/25 Past Medical History Cardiac: CHF, HTN Pulmonary: No pertinent Hx Central Nervous System: No pertinent Hx GI: No pertinent Hx Hemotology/Oncology: No pertinent Hx Hepatobiliary: No pertinent Hx Psychiatric: No pertinent Hx Musculoskeletal: No pertinent Hx Rheumotologic: No pertinent Hx Infectious Disease: No peritnent Hx ENT: No pertinent Hx Renal/: ESRD HD/PD Endocrine: NIDDM Dermatology: No pertinent Hx Past Surgical History: No pertinent Hx Family History: No pertinent Hx Patient Family History: Diabetes mellitus G8 MOTHER G8 FATHER Smoker: No Hx (Negative) Alocohol: None Drugs: None Lives with: With family Domestic Violence: Neg Review of Systems Comments unable to perform: patient intubated and sedated H&P Exam Vital Signs Vital Signs Date Time Temp Pulse Resp B/P (MAP) Pulse Ox O2 Delivery O2 Flow Rate FiO2 01/23/25 16:00 50 01/23/25 16:00 18 98 Mechanical Ventilator+ 01/23/25 16:00 97.3 73 134/18 (56) 97.3 01/23/25 12:00 8 General Appeara: Well developed, Well nourished, Normal Appearance Head Exam: Normal inspection Neck Exam: Normal inspection, Non-tender, Normal alignment Eye Exam: bilateral eye Normal inspection, bilateral eye PERRL, bilateral eye EOMI Ear Exam: bilateral ear Auricle normal, bilateral ear Canal normal, bilateral ear TM normal Nasal Exam: Normal inspection Mouth: Normal Inspection Pulmonary/Respiratory: Decreased breath sounds Peripheral Pulses: 4+ Radial (R), 4+ Radial (L), 4+ Brachial (R), 4+ Brachial (L) Abdominal Exam: Normal bowel sounds Labs/Xrays Labs Test 01/23/25 14:50 01/23/25 14:45 01/23/25 10:22 01/23/25 08:53 Range/Units Blood Gas Specimen Type Arterial Blood Gas Sample Site Left radial Blood Gas Patient Temperature 37.0 Arterial Blood Date Drawn [id number] Arterial Blood pH 7.424 7.350-7.450 Arterial Blood Partial Pressure CO2 44.8 32.0-45.0 mmHg Arterial Blood Partial Pressure O2 130.8 H 83.0-108.0 mmHg Arterial Blood HCO3 28.7 H 21.0-28.0 mmol/L Arterial Blood Oxygen Saturation 97.7 94.0-98.0 % Arterial Blood Base Excess 3.8 H -2.0-3.0 mmol/L Arterial Blood Oxyhemoglobin 97.0 94.0-98.0 % Arterial Blood Carboxyhemoglobin 0.3 L 0.5-1.5 % Arterial Blood Methemoglobin 0.4 0.0-1.5 % Gene Test Modified Blood Gas Total Hemoglobin 9.60 L 12.0-16.0 g/dL Blood Gas Set Respiration Rate 18.0 Blood Gas Modality Vent - ac FiO2 % 100.0 Blood Gas Tidal Volume 400.0 Blood Gas PEEP or CPAP 5.0 POC Glucose 71 70-106 mg/dl Prothrombin Time 17.5 H 9.3-11.8 sec Prothrombin Time INR 1.74 H 0.9-1.15 Activated Partial Thromboplast Time 48.4 H 24.5-34.5 SEC Test 01/23/25 08:30 01/23/25 06:35 01/21/25 20:23 01/21/25 04:51 Range/Units Blood Gas Liter Flow 8.00 White Blood Count 4.4 # 4.4-10.8 10^3/uL Red Blood Count 2.75 L 4.0-5.20 10^6/uL Hemoglobin 8.7 L 12.2-16.2 g/dL Hematocrit 28.3 #L 36.0-46.0 % Mean Corpuscular Volume 102.9 #H 80.0-100.0 fL Mean Corpuscular Hemoglobin 31.5 28.0-32.0 pg Mean Corpuscular Hemoglobin Concent 30.6 L 32.0-36.0 g/dL Red Cell Distribution Width 18.5 H 11.8-14.3 % Platelet Count 54 L 140-450 10^3/uL Mean Platelet Volume 10.9 H 6.9-10.8 fL Neutrophils (%) (Auto) 92.6 H 37.0-80.0 % Lymphocytes (%) (Auto) 3.6 L 10.0-50.0 % Monocytes (%) (Auto) 3.3 0.0-12.0 % Eosinophils (%) (Auto) 0.2 0.0-7.0 % Basophils (%) (Auto) 0.3 0.0-2.0 % Neutrophils # (Auto) 4.0 1.6-8.6 10 ^3/uL Lymphocytes # (Auto) 0.2 L 0.4-5.4 10 ^3/uL Monocytes # (Auto) 0.1 0-1.3 10 ^3/uL Eosinophils # (Auto) 0 0-0.8 10 ^3/uL Basophils # (Auto) 0 0-0.2 10 ^3/uL Nucleated Red Blood Cells 0.2 % Sodium Level 138 136-145 mmol/L Potassium Level 3.8 3.5-5.1 mmol/L Chloride Level 100 98-107 mmol/L Carbon Dioxide Level 18 L 20-31 mmol/L Anion Gap 20 H 5-15 Blood Urea Nitrogen 41 H 9-23 mg/dL Creatinine 4.95 H 0.550-1.02 mg/dL Glomerular Filtration Rate Calc 9 >90 mL/min BUN/Creatinine Ratio 8.3 L 10.0-20.0 Serum Glucose 90 74-106 mg/dL Calcium Level 7.5 L 8.7-10.4 mg/dL Random Vancomycin Level 15.5 H 5-10 ug/mL Stool Occult Blood Positive Negative Stool Occult Blood Sample #3 Negative Total Bilirubin 0.6 0.2-1.0 mg/dL Aspartate Amino Transferase (AST) 50 H 13-40 U/L Alanine Aminotransferase (ALT) 30 7-40 U/L Alkaline Phosphatase 98 46-116 U/L Total Protein 5.2 L 5.7-8.2 g/dL Albumin 2.9 L 3.2-4.8 g/dL Test 01/17/25 10:57 01/10/25 11:31 01/10/25 09:18 01/09/25 23:40 Range/Units Platelet Estimate Decrea Hemoglobin A1c 7.3 H <5.7 % A1C Phosphorus Level 3.4 2.4-5.1 mg/dL Magnesium Level 1.9 1.6-2.6 mg/dL Triglycerides Level 79 < 150 mg/dL Cholesterol Level 91 < 200 mg/dL LDL Cholesterol 35 < 100 mg/dL HDL Cholesterol 37 L 40-59 mg/dL Vitamin B12 Level > 4000 H 211-911 pg/mL Vitamin D 25-Hydroxy 63.2 30.0-100 ng/mL Thyroid Stimulating Hormone (TSH) 3.78 0.55-4.78 uIU/mL Urine Color Yellow Yellow Urine Clarity Turbid H Clear Urine pH 6.5 5.0-9.0 Urine Specific [place] 1.019 1.001-1.035 Urine Protein 2+ H Negative Urine Ketones Negative Negative Urine Blood Negative Negative /uL Urine Nitrite Negative Negative Urine Bilirubin Negative Negative Urine Urobilinogen Normal Negative mg/dL Urine Leukocyte Esterase Trace Negative /uL Urine RBC 7 0 - 4 /hpf Urine Microscopic WBC 4 0-5 /HPF Urine Squamous Epithelial Cells Few <5 /hpf Urine Bacteria None seen None Seen /hpf Urine Yeast (Budding) Moderate None Seen /hpf Urine Glucose 1+ H Normal mg/dL Urine Opiates Screen Neg NEGATIVE Urine Fentanyl Screen Neg NEGATIVE Urine Barbiturates Screen Neg NEGATIVE Urine Phencyclidine Screen Neg NEGATIVE Urine Amphetamines Screen Neg NEGATIVE Urine Benzodiazepines Screen Neg NEGATIVE Urine Cocaine Screen Neg NEGATIVE Urine Cannabinoids Screen Neg NEGATIVE Erythrocyte Sedimentation Rate 54 H 0-20 mm/hr C-Reactive Protein High Sensitivity 4.44 H <1.0 mg/dL Hepatitis B Surface Antigen Negative Negative Hepatitis C Antibody Negative Negative Microbiology Date/Time Source Procedure Growth Status 01/15/25 13:00 Foot Right Gram Stain - Final Complete 01/15/25 13:00 Anaerobic Culture - Final Bacteroides fragilis Complete 01/15/25 13:00 Aerobic Culture - Final Morganella morganii Klebsiella pneumoniae - ESBL Complete 01/10/25 09:18 Voided Urine Urine Culture - Final Presumptive Sully albicans Yeast, not Sully albicans Complete 01/09/25 23:45 Blood Blood Culture - Final NO GROWTH AFTER 5 DAYS OF INCUBATION. Complete Assessment/Plan Plan Impression Acute hypoxemic respiratory failure Congestive heart failure ESRD on HD Osteomyelitis CHF Patient seen and examined in ICU Events On mechanical ventilation S/p intubation PEEP 5, FiO2 100% Labs and imaging reviewed Chest x-ray shows worsening right lung infiltrates ABG reviewed Management Vent support Titrate to maintain sats 90% or above Sedation for vent synchrony Broad-spectrum antibiotics Bronchodilators Monitor renal function HD as per nephrology Management deferred Monitor electrolytes Supplement as needed Pressors as needed for hemodynamic support To maintain a mean arterial pressure of 65 mmHg Consider bronchoscopy DVT prophylaxis Critical care time 35 minutes Plan discussed with: Other (Rn) EDWIN LOPEZ MD Jan 23, 2025 16:27
--- NOTE | 2025-01-23 17:40 | DVHPN2 ---
Progress Note - Dictate Date Seen: Jan 23, 2025 Medical Necessity Reason Pt with a Central, PICC or Fol: No Subjective Underwent HD today . Towards the end of treatment went into respiratory distress nd had to be intubated . CXR showing worsening infiltrate in the right lung vital signs Vital Sign Date Time Temp Pulse Resp B/P (MAP) Pulse Ox O2 Delivery O2 Flow Rate FiO2 01/23/25 16:15 72 18 131/23 (59) 93 01/23/25 16:00 50 01/23/25 16:00 Mechanical Ventilator+ 01/23/25 16:00 97.3 97.3 01/23/25 12:00 8 Total Intake and Output 01/22/25 01/22/25 01/23/25 15:00 23:00 07:00 Intake Total 333 ml 460 ml 990.75 ml Balance 333 ml 460 ml 990.75 ml medications Current Medications Medications Dose Ordered Sig/Seth Route Start Time Stop Time Status Last Admin Dose Admin Acetaminophen 325 mg Q4HP PRN PO 01/10/25 00:30 01/22/25 00:29 325 MG Ondansetron HCl 4 mg Q4HP PRN IV 01/10/25 00:30 01/20/25 16:19 4 MG Sodium Chloride 1,000 ml @ 60 mls/hr [id number] IV 01/10/25 03:30 01/22/25 21:54 60 MLS/HR Atorvastatin Calcium 40 mg HS PO 01/10/25 22:00 01/22/25 21:38 40 MG Carvedilol 3.125 mg Q12HR PO 01/10/25 22:00 Hold 01/22/25 21:41 3.125 MG Levothyroxine Sodium 125 mcg QAM@0600 PO 01/11/25 06:00 01/22/25 05:58 125 MCG Sodium Chloride 10 ml QSHIFT@,22 IV 01/12/25 22:00 01/23/25 10:00 10 ML Diagnostic Test (Pha) 1 strip Q12HR 01/14/25 22:00 01/23/25 10:00 1 STRIP Insulin Human Regular Q12HR SC 01/14/25 22:00 Dextrose 50 ml UD PRN IV 01/14/25 14:15 01/23/25 03:21 50 ML Fluconazole 100 mg POSTDI PRN PO 01/15/25 12:45 Cancel Ertapenem 0.5 gm/ Sodium Chloride 50 ml @ 100 mls/hr DAILY IV 01/19/25 10:00 01/22/25 14:00 100 MLS/HR Midodrine 10 mg WD PRN PO 01/18/25 21:00 01/19/25 00:41 10 MG Albumin Human 100 ml @ 100 mls/hr WD PRN IV 01/18/25 21:00 01/19/25 02:44 100 MLS/HR Guaifenesin/ Dextromethorphan 10 ml TID PO 01/20/25 14:00 01/22/25 21:38 10 ML Albuterol 2.5 mg Q4HPRN PRN NEB 01/20/25 16:00 01/23/25 03:24 2.5 MG Vancomycin HCl 0 ml @ 0 mls/hr PER PHARMACY IV 01/21/25 12:15 Phenylephrine HCl 250 ml @ 30 mls/hr Q8H20M IV 01/23/25 03:30 01/23/25 04:32 30 MLS/HR Midazolam HCl 50 ml @ 1 mls/hr Q24H IV 01/23/25 13:45 01/23/25 15:34 4 MLS/HR Fentanyl Citrate 250 ml @ 2.5 mls/hr Q24H IV 01/23/25 13:45 01/23/25 13:31 10 MLS/HR Norepinephrine Bitartrate 32 mg/ Sodium Chloride 250 ml @ 0.938 mls/ hr Q24H IV 01/23/25 14:45 objective intubated and sedated Pulmonary: Rhonchi present Cardiovascular S1-S2, no S3 or S4 Abdomen: Bowel sounds positive, soft no rebound tenderness Skin: No rash Neurological: intubated Right foot dressed laboratory and microbiology Laboratory Tests 01/23/25 06:35 Test 01/23/25 06:35 Range/Units Serum Glucose 90 74-106 mg/dL Problem List ESRD on HD Right foot osteomyelitis Pneumonia DM HTN hypothyroidism Leukocytosis Anemia of CKD Hyperphosphatemia Secondary hyperparathyroidism Thrombocytopenia Assessment/Plan Dialysis TTS vent management as per pulmonary continue IV abx Dietary Evaluation Review Comments: Nutrition Recommendation 1) CCHO 60gm + renal standard diet 2) Nephro-santosh 1 tab daily 3) Lexx 1 pk daily 4) Monitor PO intake, lab values, weight trend, and I/O Expected Outcomes/Goals: To meet >75% estimated needs Wound to improve Fu 3-5 days Plan discussed with: Other CC Plasma Assessment Blood Product Administration S: [id number] RENETTA LORENZ MD Jan 23, 2025 17:40
[2025-01-23] MEDS: VANCOMYCIN 500mg/100mL 100 ML IV ONE (18:00)
--- NOTE | 2025-01-23 18:31 | DVHPN2 ---
Assessment/Plan Assessment/Plan ICU note 64 F w ESRD on HD [place], NIDDM, HTN transferred from OSH for OM s/p trauma. Found to have significant PAD, s/p angio and stent. Seen with ams, increased WOB and hypotension, decision made with family to intubate. physical exam intubated, sedated on mech vent b/l coarse rhonchi, thick white sputum on ett s1 s2 rrr abdomen soft trace LE edema labs ekg imaging reviewed POCUS done, severely decreased EF, IVC plethoric, RV dilated with hypokinesis assessment and plan acute hypoxic RF req mech vent acute metabolic encephalopathy ESRD on HD acute on chronic systolic HF aspiration PNA? vs fluid overload right heart failure HFrEF 20% s/p AICD HLD R foot OM s/p I&D to bone NIDDM now w hypoglycemia hypothyroidism thrombocytopenic anemia CKD positive FOBT c/w mech vent c/w pressor, maintain SBP >90 HD per renal c/w sedation, maintain RAAS -1 to -2 somewhat euvolemic, will hold fluid trend lactate c/w invanz and vanc, ID recc appreciated pulm consult for bronch hold platelet tf hold insulin, if hypoglycemic d50 start TF reculture diet TF dvt ppx heparin condition critical prognosis poor full code critical care time 120 minutes excluding procedure Plan discussed with: Daughter My Orders Orders - ROBERTO VASQUEZ MD Procedure Category Date Status Time Electrocardigram EKG 01/23/25 Logged 13:03 Ventilator Orders RT 01/23/25 Transmitted 13:31 Respiratory Culture REINALDO 01/23/25 In Process W/ Gs 13:31 Abg W/ Co-Ox RT 01/23/25 Logged 14:30 Midazolam Drip 50 PHA 01/23/25 In Process Mg/50ml (Versed Drip 5 13:45 Fentanyl Drip PHA 01/23/25 In Process 2500mcg/250mlns 13:45 Place Ng ORDERS 01/23/25 Transmitted 13:45 Chest Portable XY 01/23/25 Resulted 13:45 Communication Order ORDERS 01/23/25 Transmitted 13:45 Sodium Chl 0.9% PHA 01/23/25 In Process (Ns... 14:45 *Consult CONS 01/23/25 Transmitted 15:05 Communication Order ORDERS 01/23/25 Transmitted 14:00 Complete Blood Count LAB 01/24/25 Verified 04:00 Comprehensive LAB 01/24/25 Verified Metabolic Panel 04:00 Lactic Acid W/ Reflex LAB 01/24/25 Verified Order 04:00 Magnesium LAB 01/24/25 Verified 04:00 Phosphorus LAB 01/24/25 Verified 04:00 B-Type Natriuretic LAB 01/23/25 Transmitted Peptide 17:51 Blood Culture REINALDO 01/23/25 Transmitted 17:51 Urine Bacterial REINALDO 01/23/25 Transmitted Culture 17:51 Respiratory Culture REINALDO 01/23/25 Transmitted W/ Gs 17:51 Nutritional PHA 01/23/25 Transmitted Supplements (Nepro 18:00 Date of Service: Jan 23, 2025 Billing Provider: ROBERTO VASQUEZ MD Common Visit Codes: 93294-[id number] CARE 30-74 MIN, [id number] CARE-EACH +30MIN, PROCEDURE ONLY ([id number]) ROBERTO VASQUEZ MD Jan 23, 2025 18:31
--- NOTE | 2025-01-23 18:31 | DVHPN2 ---
Progress Note Date Seen: Jan 23, 2025 Resident Creating Document: MERLY THAKUR RESIDENT Medical Necessity Reason Pt with a Central, PICC or Fol: No Subjective Review of Systems Patient 64-year-old female with medical history of congestive heart failure, hypertension, hyperlipidemia, type 2 diabetes mellitus, status post ICD, ESRD on hemodialysis came to the hospital with nonhealing right foot wound. Patient underwent surgery for the right foot and had acute hypoxic respiratory failure with worsening systolic heart failure and septic shock. GI were consulted because the patient had low hemoglobin and there was a concern for GI bleeding. Stool occult blood was positive. Patient was given 2 units of PRBC and multiple platelet transfusions for low platelets Review of systems Patient seen and examined at the bedside Currently on mechanical ventilation and sedated Objective vital signs Vital Sign Date Time Temp Pulse Resp B/P (MAP) Pulse Ox O2 Delivery O2 Flow Rate FiO2 01/23/25 16:15 72 18 131/23 (59) 93 01/23/25 16:00 50 01/23/25 16:00 Mechanical Ventilator+ 01/23/25 16:00 97.3 97.3 01/23/25 12:00 8 Total Intake and Output 01/22/25 01/22/25 01/23/25 15:00 23:00 07:00 Intake Total 333 ml 460 ml 990.75 ml Balance 333 ml 460 ml 990.75 ml medications Current Medications Medications Dose Ordered Sig/Seth Route Start Time Stop Time Status Last Admin Dose Admin Acetaminophen 325 mg Q4HP PRN PO 01/10/25 00:30 01/22/25 00:29 325 MG Ondansetron HCl 4 mg Q4HP PRN IV 01/10/25 00:30 01/20/25 16:19 4 MG Atorvastatin Calcium 40 mg HS PO 01/10/25 22:00 01/22/25 21:38 40 MG Carvedilol 3.125 mg Q12HR PO 01/10/25 22:00 Hold 01/22/25 21:41 3.125 MG Levothyroxine Sodium 125 mcg QAM@0600 PO 01/11/25 06:00 01/22/25 05:58 125 MCG Sodium Chloride 10 ml QSHIFT@ IV 01/12/25 22:00 01/23/25 10:00 10 ML Diagnostic Test (Pha) 1 strip Q12HR 01/14/25 22:00 01/23/25 10:00 1 STRIP Dextrose 50 ml UD PRN IV 01/14/25 14:15 01/23/25 03:21 50 ML Fluconazole 100 mg POSTDI PRN PO 01/15/25 12:45 Cancel Ertapenem 0.5 gm/ Sodium Chloride 50 ml @ 100 mls/hr DAILY IV 01/19/25 10:00 01/22/25 14:00 100 MLS/HR Midodrine 10 mg WD PRN PO 01/18/25 21:00 01/19/25 00:41 10 MG Albumin Human 100 ml @ 100 mls/hr WD PRN IV 01/18/25 21:00 01/19/25 02:44 100 MLS/HR Guaifenesin/ Dextromethorphan 10 ml TID PO 01/20/25 14:00 01/22/25 21:38 10 ML Albuterol 2.5 mg Q4HPRN PRN NEB 01/20/25 16:00 01/23/25 03:24 2.5 MG Vancomycin HCl 0 ml @ 0 mls/hr PER PHARMACY IV 01/21/25 12:15 Midazolam HCl 50 ml @ 1 mls/hr Q24H IV 01/23/25 13:45 01/23/25 15:34 4 MLS/HR Fentanyl Citrate 250 ml @ 2.5 mls/hr Q24H IV 01/23/25 13:45 01/23/25 13:31 10 MLS/HR Norepinephrine Bitartrate 32 mg/ Sodium Chloride 250 ml @ 0.938 mls/ hr Q24H IV 01/23/25 14:45 Enteral Nutritional Formula 1,000 ml 30ML/HR GT 01/23/25 18:00 Examination Gen - no pallor, no scleral icterus Skin - Patients skin is warm and dry. HEENT - normocephalic, atraumatic, dry mucous membranes. Neck - supple, no lymphadenopathy Pulmonary - B/L equal air entry with vesicular breath sounds cardiovascular - regular S1,S2 heard GI - soft abdomen. Bowel sounds hypoactive. Neurological - sedated and on mechanical ventilation laboratory and microbiology Laboratory Tests 01/23/25 06:35 Test 01/23/25 06:35 Range/Units Serum Glucose 90 74-106 mg/dL Microbiology Date/Time Source Procedure Growth Status 01/15/25 13:00 Foot Right Gram Stain - Final Complete 01/15/25 13:00 Anaerobic Culture - Final Bacteroides fragilis Complete 01/15/25 13:00 Aerobic Culture - Final Morganella morganii Klebsiella pneumoniae - ESBL Complete 01/10/25 09:18 Voided Urine Urine Culture - Final Presumptive Sully albicans Yeast, not Sully albicans Complete 01/09/25 23:45 Blood Blood Culture - Final NO GROWTH AFTER 5 DAYS OF INCUBATION. Complete Problem List/Assessment/Plan Problem List/Assessment/Plan Assessment Possible GI bleed Sepsis likely from osteomyelitis Acute on chronic systolic heart failure Thrombocytopenia Coagulopathy PAT on CKD likely due to VMN Plan - Protonix 40 mg IV b.i.d. - once the patient is hemodynamically stable, she may benefit from EGD - watch H&H, currently stable - given the patient's low platelets, decreased RBC count, patient may benefit from a Hematology consult Plan discussed with Dr. Soto Plan discussed with: Other (ALBERTINA Hayes) Dietary Evaluation Review Comments: Nutrition Recommendation 1) CCHO 60gm + renal standard diet 2) Nephro-santosh 1 tab daily 3) Lexx 1 pk daily 4) Monitor PO intake, lab values, weight trend, and I/O Expected Outcomes/Goals: To meet >75% estimated needs Wound to improve Fu 3-5 days CC Plasma Assessment Blood Product Administration S: [id number] MERLY THAKUR RESIDENT Jan 23, 2025 18:31
[2025-01-23 21:15] LABS: COVID19 ANTIGEN SOFIA FIA NEGATIVE (NEGATIVE)
[2025-01-23] MEDS: EPOETIN ALFA-EPBX 10,000 UNIT/1ML VIAL SC ONE (21:28)
[2025-01-23] MEDS: PANTOPRAZOLE 40 MG/10 ML VIAL INJ IV SCH (21:28)
[2025-01-23] MEDS: ACCU-CHEK COMFORT CURVE STRIP VI SCH (23:42)
[2025-01-24] VITALS (110 sets, daily range): BP systolic 62–162; BP diastolic 12–42; PULSE 62–84; RESP 11–23; TEMP 97.8–98.6; O2SAT 88–100
[2025-01-24 02:42] LABS: Hematocrit 22.6 % (36.0-46.0); Hemoglobin 7.7 g/dL (12.2-16.2); Mean Corpuscular Hemoglobin 31.6 pg (28.0-32.0); Mean Corpuscular Volume 92.5 fL (80.0-100.0); Nucleated Red Blood Cells % 0.0 %
[2025-01-24 02:59] LABS: Anion Gap 10 (5-15); BUN/Creatinine Ratio 6.3 (10.0-20.0); Blood Urea Nitrogen 22 mg/dL (9-23); Chloride 100 mmol/L (98-107); Glucose 82 mg/dL (74-106); Magnesium 1.7 mg/dL (1.6-2.6); Sodium 142 mmol/L (136-145)
[2025-01-24 03:00] LABS: Bilirubin, Total 0.6 mg/dL (0.2-1.0)
[2025-01-24 03:24] LABS: Alanine Aminotransferase 273 U/L (7-40); Albumin 2.6 g/dL (3.2-4.8); Alkaline Phosphatase 191 U/L (46-116); Calcium 7.5 mg/dL (8.7-10.4); Carbon Dioxide 32 mmol/L (20-31); Potassium 2.7 mmol/L (3.5-5.1); Total Protein 4.7 g/dL (5.7-8.2)
[2025-01-24] MEDS: POTASSIUM CHL 20MEQ/100ML 100 ML IV SCH (05:37)
[2025-01-24] MEDS: SODIUM CHL 0.9% 1000 ML BAG XX ONE (06:30)
[2025-01-24] MEDS: EPOETIN ALFA-EPBX 10,000 UNIT/1ML VIAL IV ONE (09:49)
[2025-01-24 10:40] LABS: Base Excess 3.9 mmol/L (-2.0-3.0)
--- NOTE | 2025-01-24 11:50 | DVHPN2 ---
Progress Note - Dictate Date Seen: Jan 24, 2025 Medical Necessity Reason Pt with a Central, PICC or Fol: No Subjective Underwent HD today . 2.5 L UF today underwent bronchoscopy today vital signs Vital Sign Date Time Temp Pulse Resp B/P (MAP) Pulse Ox O2 Delivery O2 Flow Rate FiO2 01/24/25 10:04 78 18 62/34 (43) 97 100 01/24/25 06:00 Mechanical Ventilator+ 01/24/25 04:00 98.0 98.0 01/23/25 12:00 8 Total Intake and Output 01/23/25 01/23/25 01/24/25 15:00 23:00 07:00 Intake Total 519.25 ml 124.440 ml 170.304 ml Output Total 3000 ml Balance 519.25 ml -2875.560 ml 170.304 ml medications Current Medications Medications Dose Ordered Sig/Seth Route Start Time Stop Time Status Last Admin Dose Admin Acetaminophen 325 mg Q4HP PRN PO 01/10/25 00:30 01/22/25 00:29 325 MG Ondansetron HCl 4 mg Q4HP PRN IV 01/10/25 00:30 01/20/25 16:19 4 MG Atorvastatin Calcium 40 mg HS PO 01/10/25 22:00 01/23/25 21:28 40 MG Carvedilol 3.125 mg Q12HR PO 01/10/25 22:00 Hold 01/22/25 21:41 3.125 MG Levothyroxine Sodium 125 mcg QAM@0600 PO 01/11/25 06:00 01/24/25 05:37 125 MCG Sodium Chloride 10 ml QSHIFT@22 IV 01/12/25 22:00 01/24/25 10:49 10 ML Dextrose 50 ml UD PRN IV 01/14/25 14:15 01/23/25 21:28 50 ML Fluconazole 100 mg POSTDI PRN PO 01/15/25 12:45 Cancel Ertapenem 0.5 gm/ Sodium Chloride 50 ml @ 100 mls/hr DAILY IV 01/19/25 10:00 01/23/25 10:00 100 MLS/HR Midodrine 10 mg WD PRN PO 01/18/25 21:00 01/19/25 00:41 10 MG Albumin Human 100 ml @ 100 mls/hr WD PRN IV 01/18/25 21:00 01/19/25 02:44 100 MLS/HR Guaifenesin/ Dextromethorphan 10 ml TID PO 01/20/25 14:00 01/22/25 21:38 10 ML Albuterol 2.5 mg Q4HPRN PRN NEB 01/20/25 16:00 01/23/25 03:24 2.5 MG Vancomycin HCl 0 ml @ 0 mls/hr PER PHARMACY IV 01/21/25 12:15 Midazolam HCl 50 ml @ 1 mls/hr Q24H IV 01/23/25 13:45 01/24/25 05:38 4 MLS/HR Fentanyl Citrate 250 ml @ 2.5 mls/hr Q24H IV 01/23/25 13:45 01/24/25 09:45 10 MLS/HR Norepinephrine Bitartrate 32 mg/ Sodium Chloride 250 ml @ 0.938 mls/ hr Q24H IV 01/23/25 14:45 01/23/25 16:00 0.938 MLS/HR Enteral Nutritional Formula 1,000 ml 30ML/HR GT 01/23/25 18:00 Pantoprazole Sodium 40 mg BID IV 01/23/25 22:00 01/24/25 10:49 40 MG Diagnostic Test (Pha) 1 strip Q6HP 01/24/25 00:00 01/24/25 05:37 1 STRIP objective intubated and sedated Pulmonary: Rhonchi present Cardiovascular S1-S2, no S3 or S4 Abdomen: Bowel sounds positive, soft no rebound tenderness Skin: No rash Neurological: intubated Right foot dressed laboratory and microbiology Laboratory Tests 01/24/25 02:18 Test 01/24/25 02:18 Range/Units Serum Glucose 82 74-106 mg/dL Problem List ESRD on HD Acute hypoxic respiratory failure Shock Right foot osteomyelitis Pneumonia DM hypothyroidism Leukocytosis Anemia Hyperphosphatemia Secondary hyperparathyroidism Thrombocytopenia Assessment/Plan s/p HD today vent management as per pulmonary continue IV abx Monitor H/H closely and transfuse prn Dietary Evaluation Review Comments: Nutrition Recommendation 1) CCHO 60gm + renal standard diet 2) Nephro-santosh 1 tab daily 3) Lexx 1 pk daily 4) Monitor PO intake, lab values, weight trend, and I/O Expected Outcomes/Goals: To meet >75% estimated needs Wound to improve Fu 3-5 days Plan discussed with: Other CC Plasma Assessment Blood Product Administration S: [id number] RENETTA LORENZ MD Jan 24, 2025 11:50
--- NOTE | 2025-01-24 14:40 | DVHPN2 ---
Assessment/Plan Assessment/Plan ICU note 64 F w ESRD on HD [facility], NIDDM, HTN transferred from OSH for OM s/p trauma. Found to have significant PAD, s/p angio and stent. Seen with ams, increased WOB and hypotension, decision made with family to intubate. bronch today. c/w hd per renal. physical exam intubated, sedated on mech vent b/l coarse rhonchi, thick white sputum on ett s1 s2 rrr abdomen soft trace LE edema labs ekg imaging reviewed POCUS done, severely decreased EF, IVC plethoric, RV dilated with hypokinesis assessment and plan acute hypoxic RF req mech vent acute metabolic encephalopathy ESRD on HD acute on chronic systolic HF aspiration PNA? vs fluid overload right heart failure HFrEF 20% s/p AICD HLD R foot OM s/p I&D to bone NIDDM now w hypoglycemia hypothyroidism thrombocytopenic anemia CKD positive FOBT c/w mech vent c/w pressor, maintain SBP >90 HD per renal c/w sedation, maintain RAAS -1 to -2 somewhat euvolemic, will hold fluid trend lactate c/w invanz and vanc, ID recc appreciated pulm consult for bronch hold platelet tf hold insulin, if hypoglycemic d50 start TF reculture diet TF dvt ppx heparin condition critical prognosis poor full code critical care time 35 minutes excluding procedure Plan discussed with: Other My Orders Orders - ROBERTO VASQUEZ MD Procedure Category Date Status Time Sodium Chl 0.9% PHA 01/23/25 In Process (Ns... 14:45 *Consult CONS 01/23/25 Transmitted 15:05 Communication Order ORDERS 01/23/25 Transmitted 14:00 Blood Culture REINALDO 01/23/25 In Process 17:51 Urine Bacterial REINALDO 01/23/25 Logged Culture 17:51 Nutritional PHA 01/23/25 In Process Supplements (Nepro 18:00 Glucose Blood PHA 01/24/25 In Process (Accu-Chek Comfort 00:00 Abg W/ Co-Ox RT 01/24/25 Logged 07:00 Abg W/ Co-Ox RT 01/24/25 Logged 16:00 Date of Service: Jan 24, 2025 Billing Provider: ROBERTO VASQUEZ MD Common Visit Codes: [id number] CARE 30-74 MIN ROBERTO VASQUEZ MD Jan 24, 2025 14:40
[2025-01-24] MEDS: VANCOMYCIN 500mg/100mL 100 ML IV ONE (14:49)
[2025-01-24 16:20] LABS: Base Excess 3.9 mmol/L (-2.0-3.0)
[2025-01-24] MEDS: POTASSIUM CHL 20 Meq TABLET PO ONE (16:21)
[2025-01-24] MEDS: HYDROCORTISONE SOD SUCC 100 MG/2ML INJ VIAL IV SCH (17:17)
[2025-01-24] MEDS: Nepro With Carb Steady 1 Liter Bottle GT SCH (18:06)
--- NOTE | 2025-01-24 19:15 | DVHPN2 ---
Progress Note Date Seen: Jan 24, 2025 Resident Creating Document: JHAnushaJMERLY Schwartz RESIDENT Medical Necessity Reason Pt with a Central, PICC or Fol: Yes The following are medically ne: Central Line, Lofton Catheter Subjective Review of Systems Patient seen and examined at the bedside Currently on mechanical ventilation and sedated H&H decreased been given the patient's hemodynamic instability we close of the procedure and recommend conservative management as of now Objective vital signs Vital Sign Date Time Temp Pulse Resp B/P (MAP) Pulse Ox O2 Delivery O2 Flow Rate FiO2 01/24/25 18:15 80 18 109/17 (47) 92 01/24/25 18:00 Mechanical Ventilator+ 100 100 01/24/25 16:00 98.6 98.6 01/23/25 12:00 8 Total Intake and Output 01/23/25 01/23/25 01/24/25 15:00 23:00 07:00 Intake Total 519.25 ml 124.440 ml 170.304 ml Output Total 3000 ml Balance 519.25 ml -2875.560 ml 170.304 ml medications Current Medications Medications Dose Ordered Sig/Seth Route Start Time Stop Time Status Last Admin Dose Admin Acetaminophen 325 mg Q4HP PRN PO 01/10/25 00:30 01/22/25 00:29 325 MG Ondansetron HCl 4 mg Q4HP PRN IV 01/10/25 00:30 01/20/25 16:19 4 MG Atorvastatin Calcium 40 mg HS PO 01/10/25 22:00 01/23/25 21:28 40 MG Carvedilol 3.125 mg Q12HR PO 01/10/25 22:00 Hold 01/22/25 21:41 3.125 MG Levothyroxine Sodium 125 mcg QAM@0600 PO 01/11/25 06:00 01/24/25 05:37 125 MCG Sodium Chloride 10 ml QSHIFT@ IV 01/12/25 22:00 01/24/25 10:49 10 ML Dextrose 50 ml UD PRN IV 01/14/25 14:15 01/24/25 12:10 50 ML Fluconazole 100 mg POSTDI PRN PO 01/15/25 12:45 Cancel Ertapenem 0.5 gm/ Sodium Chloride 50 ml @ 100 mls/hr DAILY IV 01/19/25 10:00 01/24/25 12:08 100 MLS/HR Midodrine 10 mg WD PRN PO 01/18/25 21:00 01/19/25 00:41 10 MG Albumin Human 100 ml @ 100 mls/hr WD PRN IV 01/18/25 21:00 01/19/25 02:44 100 MLS/HR Guaifenesin/ Dextromethorphan 10 ml TID PO 01/20/25 14:00 01/22/25 21:38 10 ML Albuterol 2.5 mg Q4HPRN PRN NEB 01/20/25 16:00 01/23/25 03:24 2.5 MG Vancomycin HCl 0 ml @ 0 mls/hr PER PHARMACY IV 01/21/25 12:15 Midazolam HCl 50 ml @ 1 mls/hr Q24H IV 01/23/25 13:45 01/24/25 16:21 4 MLS/HR Fentanyl Citrate 250 ml @ 2.5 mls/hr Q24H IV 01/23/25 13:45 01/24/25 09:45 10 MLS/HR Norepinephrine Bitartrate 32 mg/ Sodium Chloride 250 ml @ 0.938 mls/ hr Q24H IV 01/23/25 14:45 01/23/25 16:00 0.938 MLS/HR Enteral Nutritional Formula 1,000 ml 30ML/HR GT 01/23/25 18:00 01/24/25 18:06 1,000 ML Pantoprazole Sodium 40 mg BID IV 01/23/25 22:00 01/24/25 10:49 40 MG Diagnostic Test (Pha) 1 strip Q6HP 01/24/25 00:00 01/24/25 17:43 1 STRIP Hydrocortisone Sodium Succinate 50 mg Q6HR IV 01/24/25 18:00 01/24/25 17:17 50 MG Examination Gen - no pallor, no scleral icterus Skin - Patients skin is warm and dry. HEENT - normocephalic, atraumatic, dry mucous membranes. Neck - supple, no lymphadenopathy Pulmonary - B/L equal air entry with vesicular breath sounds cardiovascular - regular S1,S2 heard GI - soft abdomen. Bowel sounds hypoactive. Neurological - sedated and on mechanical ventilation laboratory and microbiology Laboratory Tests 01/24/25 13:25 01/24/25 02:18 Test 01/24/25 02:18 Range/Units Serum Glucose 82 74-106 mg/dL Microbiology Date/Time Source Procedure Growth Status 01/23/25 13:38 Sputum Gram Stain - Final Resulted 01/23/25 13:38 Sputum Respiratory Culture - Preliminary Resulted 01/23/25 09:15 Nose MRSA Screen - Final Complete 01/10/25 09:18 Voided Urine Urine Culture - Final Presumptive Sully albicans Yeast, not Sully albicans Complete 01/09/25 23:45 Blood Blood Culture - Final NO GROWTH AFTER 5 DAYS OF INCUBATION. Complete Problem List/Assessment/Plan Problem List/Assessment/Plan Assessment Possible GI bleed Sepsis likely from osteomyelitis Acute on chronic systolic heart failure Thrombocytopenia Coagulopathy PAT on CKD likely due to VMN Plan - Protonix 40 mg IV b.i.d. - once the patient is hemodynamically stable, she may benefit from EGD - watch H&H, currently stable - given the patient's low platelets, decreased RBC count, patient may benefit from a Hematology consult Plan discussed with Dr. Soto Plan discussed with: Other (ALBERTINA Bishop) Dietary Evaluation Review Comments: Nutrition Recommendation 1) CCHO 60gm + renal standard diet 2) Nephro-santosh 1 tab daily 3) Lexx 1 pk daily 4) Monitor PO intake, lab values, weight trend, and I/O Expected Outcomes/Goals: To meet >75% estimated needs Wound to improve Fu 3-5 days CC Plasma Assessment Blood Product Administration S: [id number] MERLY THAKUR RESIDENT Jan 24, 2025 19:14
--- NOTE | 2025-01-24 19:30 | DVHPN2 ---
Progress Note - Dictate Date Seen: Jan 24, 2025 Medical Necessity Reason Pt with a Central, PICC or Fol: Yes The following are medically ne: Central Line, Lofton Catheter vital signs Vital Sign Date Time Temp Pulse Resp B/P (MAP) Pulse Ox O2 Delivery O2 Flow Rate FiO2 01/24/25 18:15 80 18 109/17 (47) 92 01/24/25 18:00 Mechanical Ventilator+ 100 100 01/24/25 16:00 98.6 98.6 01/23/25 12:00 8 Total Intake and Output 01/23/25 01/23/25 01/24/25 15:00 23:00 07:00 Intake Total 519.25 ml 124.440 ml 170.304 ml Output Total 3000 ml Balance 519.25 ml -2875.560 ml 170.304 ml medications Current Medications Medications Dose Ordered Sig/Seth Route Start Time Stop Time Status Last Admin Dose Admin Acetaminophen 325 mg Q4HP PRN PO 01/10/25 00:30 01/22/25 00:29 325 MG Ondansetron HCl 4 mg Q4HP PRN IV 01/10/25 00:30 01/20/25 16:19 4 MG Atorvastatin Calcium 40 mg HS PO 01/10/25 22:00 01/23/25 21:28 40 MG Carvedilol 3.125 mg Q12HR PO 01/10/25 22:00 Hold 01/22/25 21:41 3.125 MG Levothyroxine Sodium 125 mcg QAM@0600 PO 01/11/25 06:00 01/24/25 05:37 125 MCG Sodium Chloride 10 ml QSHIFT@ IV 01/12/25 22:00 01/24/25 10:49 10 ML Dextrose 50 ml UD PRN IV 01/14/25 14:15 01/24/25 12:10 50 ML Fluconazole 100 mg POSTDI PRN PO 01/15/25 12:45 Cancel Ertapenem 0.5 gm/ Sodium Chloride 50 ml @ 100 mls/hr DAILY IV 01/19/25 10:00 01/24/25 12:08 100 MLS/HR Midodrine 10 mg WD PRN PO 01/18/25 21:00 01/19/25 00:41 10 MG Albumin Human 100 ml @ 100 mls/hr WD PRN IV 01/18/25 21:00 01/19/25 02:44 100 MLS/HR Guaifenesin/ Dextromethorphan 10 ml TID PO 01/20/25 14:00 01/22/25 21:38 10 ML Albuterol 2.5 mg Q4HPRN PRN NEB 01/20/25 16:00 01/23/25 03:24 2.5 MG Vancomycin HCl 0 ml @ 0 mls/hr PER PHARMACY IV 01/21/25 12:15 Midazolam HCl 50 ml @ 1 mls/hr Q24H IV 01/23/25 13:45 01/24/25 16:21 4 MLS/HR Fentanyl Citrate 250 ml @ 2.5 mls/hr Q24H IV 01/23/25 13:45 01/24/25 09:45 10 MLS/HR Norepinephrine Bitartrate 32 mg/ Sodium Chloride 250 ml @ 0.938 mls/ hr Q24H IV 01/23/25 14:45 01/23/25 16:00 0.938 MLS/HR Enteral Nutritional Formula 1,000 ml 30ML/HR GT 01/23/25 18:00 01/24/25 18:06 1,000 ML Pantoprazole Sodium 40 mg BID IV 01/23/25 22:00 01/24/25 10:49 40 MG Diagnostic Test (Pha) 1 strip Q6HP 01/24/25 00:00 01/24/25 17:43 1 STRIP Hydrocortisone Sodium Succinate 50 mg Q6HR IV 01/24/25 18:00 01/24/25 17:17 50 MG laboratory and microbiology Laboratory Tests 01/24/25 13:25 01/24/25 02:18 Test 01/24/25 02:18 Range/Units Serum Glucose 82 74-106 mg/dL Assessment/Plan Impression Acute hypoxemic respiratory failure Congestive heart failure ESRD on HD Osteomyelitis CHF Patient seen and examined in ICU Events On mechanical ventilation S/p intubation PEEP 5, FiO2 100% s/p bronchoscopy (see note) probable pulm edema s/p HD 3 l of fluid pulled CXR better Labs and imaging reviewed Management Vent support Titrate to maintain sats 90% or above Sedation for vent synchrony Broad-spectrum antibiotics Bronchodilators Monitor renal function HD as per nephrology Management deferred Monitor electrolytes Supplement as needed Pressors as needed for hemodynamic support To maintain a mean arterial pressure of 65 mmHg DVT prophylaxis Critical care time 35 minutes Dietary Evaluation Review Comments: Nutrition Recommendation 1) CCHO 60gm + renal standard diet 2) Nephro-santosh 1 tab daily 3) Lexx 1 pk daily 4) Monitor PO intake, lab values, weight trend, and I/O Expected Outcomes/Goals: To meet >75% estimated needs Wound to improve Fu 3-5 days Plan discussed with: Other (rn) CC Plasma Assessment Blood Product Administration S: [id number] EDWIN LOPEZ MD Jan 24, 2025 19:30
--- NOTE | 2025-01-24 19:33 | DVHNC2 ---
Procedure - procedure bronchoscopy and bronchial washings indication: pneumonia procedure in detail consent obtained time out per protocol flexible scope used * passed thru the ETT * tracheobronch tree examined * mucosa appeared normal * minimal secretions suctioned from LLL * sent for gram stain and cx * no endobronchial lesions * * at the end of procedure scope removed * no complications EDWIN LOPEZ MD Jan 24, 2025 19:33
[2025-01-25] VITALS (113 sets, daily range): BP systolic 77–127; BP diastolic 10–49; PULSE 76–108; RESP 12–23; TEMP 97.6–99.3; O2SAT 93–98
[2025-01-25 03:04] LABS: Hematocrit 31.0 % (36.0-46.0); Hemoglobin 10.3 g/dL (12.2-16.2); Mean Corpuscular Hemoglobin 31.0 pg (28.0-32.0); Mean Corpuscular Volume 93.1 fL (80.0-100.0); Nucleated Red Blood Cells % 0.3 %
[2025-01-25 03:18] LABS: Chloride 103 mmol/L (98-107); Potassium 3.7 mmol/L (3.5-5.1); Sodium 142 mmol/L (136-145)
[2025-01-25 03:19] LABS: Anion Gap 9 (5-15); Carbon Dioxide 30 mmol/L (20-31)
[2025-01-25 03:24] LABS: BUN/Creatinine Ratio 6.0 (10.0-20.0); Blood Urea Nitrogen 17 mg/dL (9-23); Glucose 94 mg/dL (74-106)
[2025-01-25 03:44] LABS: Calcium 8.0 mg/dL (8.7-10.4)
[2025-01-25 09:22] LABS: Base Excess 1.6 mmol/L (-2.0-3.0)
[2025-01-25] MEDS ORDERED: SODIUM CHLORIDE 0.9% 1,000 ML IV SCH (11:00)
--- NOTE | 2025-01-25 11:27 | DVHPN2 ---
Consult Progress Note Date Seen: Jan 25, 2025 Subjective Other Systems: Notified of NSVT events Objective vital signs Vital Sign Date Time Temp Pulse Resp B/P (MAP) Pulse Ox O2 Delivery O2 Flow Rate FiO2 01/25/25 10:08 84 18 102/27 (52) 97 85 01/25/25 10:00 Mechanical Ventilator+ 01/25/25 08:00 98.7 98.7 01/23/25 12:00 8 Total Intake and Output 01/24/25 01/24/25 01/25/25 15:00 23:00 07:00 Intake Total 207.15 ml 244.925 ml 371.000 ml Balance 207.15 ml 244.925 ml 371.000 ml medications Current Medications Medications Dose Ordered Sig/Seth Route Start Time Stop Time Status Last Admin Dose Admin Acetaminophen 325 mg Q4HP PRN PO 01/10/25 00:30 01/22/25 00:29 325 MG Ondansetron HCl 4 mg Q4HP PRN IV 01/10/25 00:30 01/20/25 16:19 4 MG Atorvastatin Calcium 40 mg HS PO 01/10/25 22:00 01/24/25 21:30 40 MG Carvedilol 3.125 mg Q12HR PO 01/10/25 22:00 Hold 01/22/25 21:41 3.125 MG Levothyroxine Sodium 125 mcg QAM@0600 PO 01/11/25 06:00 01/24/25 05:37 125 MCG Sodium Chloride 10 ml QSHIFT@, IV 01/12/25 22:00 01/25/25 09:56 10 ML Dextrose 50 ml UD PRN IV 01/14/25 14:15 01/24/25 12:10 50 ML Fluconazole 100 mg POSTDI PRN PO 01/15/25 12:45 Cancel Ertapenem 0.5 gm/ Sodium Chloride 50 ml @ 100 mls/hr DAILY IV 01/19/25 10:00 01/25/25 09:56 100 MLS/HR Midodrine 10 mg WD PRN PO 01/18/25 21:00 01/19/25 00:41 10 MG Albumin Human 100 ml @ 100 mls/hr WD PRN IV 01/18/25 21:00 01/19/25 02:44 100 MLS/HR Guaifenesin/ Dextromethorphan 10 ml TID PO 01/20/25 14:00 01/22/25 21:38 10 ML Albuterol 2.5 mg Q4HPRN PRN NEB 01/20/25 16:00 01/23/25 03:24 2.5 MG Vancomycin HCl 0 ml @ 0 mls/hr PER PHARMACY IV 01/21/25 12:15 Midazolam HCl 50 ml @ 1 mls/hr Q24H IV 01/23/25 13:45 01/25/25 04:24 4 MLS/HR Fentanyl Citrate 250 ml @ 2.5 mls/hr Q24H IV 01/23/25 13:45 01/25/25 02:39 15 MLS/HR Norepinephrine Bitartrate 32 mg/ Sodium Chloride 250 ml @ 0.938 mls/ hr Q24H IV 01/23/25 14:45 01/23/25 16:00 0.938 MLS/HR Enteral Nutritional Formula 1,000 ml 30ML/HR GT 01/23/25 18:00 01/24/25 18:06 1,000 ML Pantoprazole Sodium 40 mg BID IV 01/23/25 22:00 01/25/25 09:56 40 MG Diagnostic Test (Pha) 1 strip Q6HP 01/24/25 00:00 01/25/25 05:34 1 STRIP Hydrocortisone Sodium Succinate 50 mg Q6HR IV 01/24/25 18:00 01/25/25 05:34 50 MG Sodium Chloride 1,000 ml @ 200 mls/hr Q5H IV 01/25/25 11:00 UNV Examination: GENERAL:Abnormal, LUNGS:Abnormal, CVS:Abnormal, NEURO:Abnormal laboratory and microbiology Laboratory Tests 01/25/25 02:45 Test 01/25/25 02:45 Range/Units Serum Glucose 94 74-106 mg/dL Problem List/Assessment/Plan Problem List/Assessment/Plan Non-sustained ventricular tachycardia Peripheral arterial disease status post SHIFTMAN f the right peroneal artery () Right lower extremity cellulitis/osteomyelitis Chronic HFrEF, NYHA class II Presence of AICD ([place]) Dyslipidemia Thyroid disease End-stage renal disease on hemodialysis Severe anemia/thrombocytopenia s/p transfusions Type 2 diabetes mellitus Obesity Plan/Recommendation (Dr. Sanchez) Notified of NSVT events for which the patient will undergo a repeat transthoracic echocardiogram. In the meantime, replete electrolytes as necessary K>4 & Mg>2 and initiate low-dose amiodarone GT (monitor LFTs). Discontinue midodrine, contraindicated with HF. Continue vasopressor for hemodynamic support. Currently off DAPT with recent SHIFTMAN of the RLE which places the patient at high-risk for in-stent restenosis. Continue lipid-lowering agent. Initiate GDMT for HFrEF when able to tolerate. DVT/VTE prophylaxis: initiate SCDs. We will continue to monitor closely. Thank you for allowing us to care for this patient. Please call with any questions or concerns. Critical care time spent: 44 minutes Critical care time: 30 min. This medical document was created using an electronic medical record system with voice recognition software and computerized dictation system. Although this document has been carefully reviewed, there might still be some phonetic and typographical errors. Occasional wrong-word or ``sound-alike substitutions may have occurred due to the inherent limitations of voice recognition software. These areas are purely typographical due to imperfections of the software programs and do not reflect any compromise in the patient's medical care. Please read the chart carefully and recognize, using context, where these substitutions have occurred. Plan discussed with: Other Dietary Evaluation Review Comments: Nutrition Recommendation 1) CCHO 60gm + renal standard diet 2) Nephro-santosh 1 tab daily 3) Lexx 1 pk daily 4) Monitor PO intake, lab values, weight trend, and I/O Expected Outcomes/Goals: To meet >75% estimated needs Wound to improve Fu 3-5 days CC Plasma Assessment Blood Product Administration S: [id number] Date of Service: Jan 25, 2025 Billing Provider: RENÉE LOBATO Cardiology Common Codes: [id number] CARE 30-74 MIN RENÉE LOBATO Jan 25, 2025 11:27
[2025-01-25] MEDS: SODIUM CHLORIDE 0.9% 250 ML IV ONE (13:15)
[2025-01-25] MEDS: AMIODARONE HCL 200 MG TAB PO ONE (13:36)
[2025-01-25] MEDS: MAGNESIUM SULFATE 1GM/100ML 100 ML IV ONE (13:37)
--- NOTE | 2025-01-25 14:53 | DVHPN2 ---
Assessment/Plan Assessment/Plan ICU note 64 F w ESRD on HD [facility], NIDDM, HTN transferred from OSH for OM s/p trauma. Found to have significant PAD, s/p angio and stent. Seen with ams, increased WOB and hypotension, decision made with family to intubate. ARDS picture. cardio consult. positioning. c/w abx, pressor physical exam intubated, sedated on mech vent b/l coarse rhonchi, thick white sputum on ett s1 s2 rrr abdomen soft trace LE edema labs ekg imaging reviewed POCUS done today, IVC 1.9 with no excursion in vent. LLL hepatization, RLL b lines, no PLEF. assessment and plan acute hypoxic RF req mech vent acute metabolic encephalopathy ESRD on HD acute on chronic systolic HF aspiration PNA? vs fluid overload ARDS? right heart failure HFrEF 20% s/p AICD HLD R foot OM s/p I&D to bone NIDDM now w hypoglycemia hypothyroidism thrombocytopenic anemia CKD positive FOBT c/w mech vent c/w pressor, maintain SBP >90 HD per renal c/w sedation, maintain RAAS -1 to -2 somewhat euvolemic, will hold fluid trend lactate c/w invanz and vanc, ID recc appreciated pulm consult for bronch hold platelet tf hold insulin, if hypoglycemic d50 start TF reculture diet TF dvt ppx heparin condition critical prognosis poor full code critical care time 35 minutes excluding procedure Plan discussed with: Other My Orders Orders - ROBERTO VASQUEZ MD Procedure Category Date Status Time Hydrocortisone PHA 01/24/25 In Process Succinate Inj 18:00 * Cardiology Consult CONS 01/25/25 Transmitted 10:51 Sodium Chloride 0.9% PHA 01/25/25 Logged 13:15 Date of Service: Jan 25, 2025 Billing Provider: ROBERTO VASQUEZ MD Common Visit Codes: [id number] CARE 30-74 MIN ROBERTO VASQUEZ MD Jan 25, 2025 14:53
--- NOTE | 2025-01-25 17:16 | DVHPN2 ---
Progress Note - Dictate Date Seen: Jan 25, 2025 Medical Necessity Reason Pt with a Central, PICC or Fol: Yes The following are medically ne: Central Line, Lofton Catheter Subjective Still intubated vital signs Vital Sign Date Time Temp Pulse Resp B/P (MAP) Pulse Ox O2 Delivery O2 Flow Rate FiO2 01/25/25 16:16 81 18 108/15 (46) 95 85 01/25/25 16:00 Mechanical Ventilator+ 01/25/25 16:00 99.0 99.0 01/23/25 12:00 8 Total Intake and Output 01/24/25 01/24/25 01/25/25 15:00 23:00 07:00 Intake Total 207.15 ml 244.925 ml 371.000 ml Balance 207.15 ml 244.925 ml 371.000 ml medications Current Medications Medications Dose Ordered Sig/Seth Route Start Time Stop Time Status Last Admin Dose Admin Acetaminophen 325 mg Q4HP PRN PO 01/10/25 00:30 01/22/25 00:29 325 MG Ondansetron HCl 4 mg Q4HP PRN IV 01/10/25 00:30 01/20/25 16:19 4 MG Atorvastatin Calcium 40 mg HS PO 01/10/25 22:00 01/24/25 21:30 40 MG Levothyroxine Sodium 125 mcg QAM@0600 PO 01/11/25 06:00 01/24/25 05:37 125 MCG Sodium Chloride 10 ml QSHIFT@22 IV 01/12/25 22:00 01/25/25 09:56 10 ML Dextrose 50 ml UD PRN IV 01/14/25 14:15 01/24/25 12:10 50 ML Fluconazole 100 mg POSTDI PRN PO 01/15/25 12:45 Cancel Ertapenem 0.5 gm/ Sodium Chloride 50 ml @ 100 mls/hr DAILY IV 01/19/25 10:00 01/25/25 09:56 100 MLS/HR Albumin Human 100 ml @ 100 mls/hr WD PRN IV 01/18/25 21:00 01/19/25 02:44 100 MLS/HR Guaifenesin/ Dextromethorphan 10 ml TID PO 01/20/25 14:00 01/22/25 21:38 10 ML Albuterol 2.5 mg Q4HPRN PRN NEB 01/20/25 16:00 01/23/25 03:24 2.5 MG Vancomycin HCl 0 ml @ 0 mls/hr PER PHARMACY IV 01/21/25 12:15 Midazolam HCl 50 ml @ 1 mls/hr Q24H IV 01/23/25 13:45 01/25/25 15:48 4 MLS/HR Fentanyl Citrate 250 ml @ 2.5 mls/hr Q24H IV 01/23/25 13:45 01/25/25 02:39 15 MLS/HR Norepinephrine Bitartrate 32 mg/ Sodium Chloride 250 ml @ 0.938 mls/ hr Q24H IV 01/23/25 14:45 01/23/25 16:00 0.938 MLS/HR Enteral Nutritional Formula 1,000 ml 30ML/HR GT 01/23/25 18:00 01/24/25 18:06 1,000 ML Pantoprazole Sodium 40 mg BID IV 01/23/25 22:00 01/25/25 09:56 40 MG Diagnostic Test (Pha) 1 strip Q6HP 01/24/25 00:00 01/25/25 11:45 1 STRIP Hydrocortisone Sodium Succinate 50 mg Q6HR IV 01/24/25 18:00 01/25/25 11:45 50 MG Sodium Chloride 1,000 ml @ 200 mls/hr Q5H IV 01/25/25 11:00 Cancel Amiodarone HCl 100 mg Q12HR PO 01/25/25 22:00 objective intubated and sedated Pulmonary: Rhonchi present Cardiovascular S1-S2, no S3 or S4 Abdomen: Bowel sounds positive, soft no rebound tenderness Skin: No rash Neurological: intubated Right foot dressed laboratory and microbiology Laboratory Tests 01/25/25 02:45 Test 01/25/25 02:45 Range/Units Serum Glucose 94 74-106 mg/dL Problem List ESRD on HD Acute hypoxic respiratory failure Shock Right foot osteomyelitis Pneumonia DM hypothyroidism Leukocytosis Anemia Hyperphosphatemia Secondary hyperparathyroidism Thrombocytopenia Assessment/Plan HD on MWF schedule vent management as per pulmonary continue IV abx Monitor H/H closely and transfuse prn Dietary Evaluation Review Comments: Nutrition Recommendation 1) CCHO 60gm + renal standard diet 2) Nephro-santosh 1 tab daily 3) Lexx 1 pk daily 4) Monitor PO intake, lab values, weight trend, and I/O Expected Outcomes/Goals: To meet >75% estimated needs Wound to improve Fu 3-5 days Plan discussed with: Other CC Plasma Assessment Blood Product Administration S: [id number] RENETTA LORENZ MD Jan 25, 2025 17:16
--- NOTE | 2025-01-25 19:36 | DVHPN2 ---
Progress Note Date Seen: Jan 25, 2025 Resident Creating Document: JHMERLY VIZCARRA RESIDENT Medical Necessity Reason Pt with a Central, PICC or Fol: Yes The following are medically ne: Central Line, [place] Catheter Subjective Review of Systems Patient seen and examined at the bedside H&H stable and increasing Continue on Protonix b.i.d. Patient's hemodynamic status worsened with increased requirement on the ventilator, we will hold off with the procedure as of now Objective vital signs Vital Sign Date Time Temp Pulse Resp B/P (MAP) Pulse Ox O2 Delivery O2 Flow Rate FiO2 01/25/25 18:45 80 18 109/21 (50) 97 01/25/25 18:20 85 01/25/25 18:00 Mechanical Ventilator+ 01/25/25 16:00 99.0 99.0 01/23/25 12:00 8 Total Intake and Output 01/24/25 01/24/25 01/25/25 15:00 23:00 07:00 Intake Total 207.15 ml 244.925 ml 371.000 ml Balance 207.15 ml 244.925 ml 371.000 ml medications Current Medications Medications Dose Ordered Sig/Seth Route Start Time Stop Time Status Last Admin Dose Admin Acetaminophen 325 mg Q4HP PRN PO 01/10/25 00:30 01/22/25 00:29 325 MG Ondansetron HCl 4 mg Q4HP PRN IV 01/10/25 00:30 01/20/25 16:19 4 MG Atorvastatin Calcium 40 mg HS PO 01/10/25 22:00 01/24/25 21:30 40 MG Levothyroxine Sodium 125 mcg QAM@0600 PO 01/11/25 06:00 01/24/25 05:37 125 MCG Sodium Chloride 10 ml QSHIFT@ IV 01/12/25 22:00 01/25/25 09:56 10 ML Dextrose 50 ml UD PRN IV 01/14/25 14:15 01/24/25 12:10 50 ML Fluconazole 100 mg POSTDI PRN PO 01/15/25 12:45 Cancel Ertapenem 0.5 gm/ Sodium Chloride 50 ml @ 100 mls/hr DAILY IV 01/19/25 10:00 01/25/25 09:56 100 MLS/HR Albumin Human 100 ml @ 100 mls/hr WD PRN IV 01/18/25 21:00 01/19/25 02:44 100 MLS/HR Guaifenesin/ Dextromethorphan 10 ml TID PO 01/20/25 14:00 01/22/25 21:38 10 ML Albuterol 2.5 mg Q4HPRN PRN NEB 01/20/25 16:00 01/23/25 03:24 2.5 MG Vancomycin HCl 0 ml @ 0 mls/hr PER PHARMACY IV 01/21/25 12:15 Fentanyl Citrate 250 ml @ 2.5 mls/hr Q24H IV 01/23/25 13:45 01/25/25 17:56 12.5 MLS/HR Norepinephrine Bitartrate 32 mg/ Sodium Chloride 250 ml @ 0.938 mls/ hr Q24H IV 01/23/25 14:45 01/23/25 16:00 0.938 MLS/HR Enteral Nutritional Formula 1,000 ml 30ML/HR GT 01/23/25 18:00 01/24/25 18:06 1,000 ML Pantoprazole Sodium 40 mg BID IV 01/23/25 22:00 01/25/25 09:56 40 MG Diagnostic Test (Pha) 1 strip Q6HP 01/24/25 00:00 01/25/25 18:00 1 STRIP Hydrocortisone Sodium Succinate 50 mg Q6HR IV 01/24/25 18:00 01/25/25 17:26 50 MG Sodium Chloride 1,000 ml @ 200 mls/hr Q5H IV 01/25/25 11:00 Cancel Amiodarone HCl 100 mg Q12HR PO 01/25/25 22:00 Midazolam HCl 100 ml @ 1 mls/hr Q24H IV 01/25/25 18:00 Examination Gen - no pallor, no scleral icterus Skin - Patients skin is warm and dry. HEENT - normocephalic, atraumatic, dry mucous membranes. Neck - supple, no lymphadenopathy Pulmonary - B/L equal air entry with vesicular breath sounds cardiovascular - regular S1,S2 heard GI - soft abdomen. Bowel sounds hypoactive. Neurological - sedated and on mechanical ventilation laboratory and microbiology Laboratory Tests 01/25/25 02:45 Test 01/25/25 02:45 Range/Units Serum Glucose 94 74-106 mg/dL Microbiology Date/Time Source Procedure Growth Status 01/24/25 10:06 Bronchial Washings Gram Stain - Final Resulted 01/24/25 10:06 Bronchial Washings Respiratory Culture - Preliminary Resulted 01/23/25 19:15 Blood Blood Culture - Preliminary NO GROWTH AFTER 48 HOURS OF INCUBATION. Resulted 01/23/25 09:15 Nose MRSA Screen - Final Complete 01/10/25 09:18 Voided Urine Urine Culture - Final Presumptive Sully albicans Yeast, not Sully albicans Complete Problem List/Assessment/Plan Problem List/Assessment/Plan Assessment Possible GI bleed Sepsis likely from osteomyelitis Acute on chronic systolic heart failure Thrombocytopenia Coagulopathy PAT on CKD likely due to VMN Plan - Protonix 40 mg IV b.i.d. - once the patient is hemodynamically stable, she may benefit from EGD - watch H&H, currently stable Plan discussed with Dr. Soto Plan discussed with: Other (ALBERTINA Bishop) Dietary Evaluation Review Comments: Nutrition Recommendation 1) CCHO 60gm + renal standard diet 2) Nephro-santosh 1 tab daily 3) Lexx 1 pk daily 4) Monitor PO intake, lab values, weight trend, and I/O Expected Outcomes/Goals: To meet >75% estimated needs Wound to improve Fu 3-5 days CC Plasma Assessment Blood Product Administration S: [id number] MERLY THAKUR RESIDENT Jan 25, 2025 19:36
--- NOTE | 2025-01-25 21:22 | DVHPN2 ---
Consult Progress Note Date Seen: Jan 22, 2025 Objective vital signs Vital Sign Date Time Temp Pulse Resp B/P (MAP) Pulse Ox O2 Delivery O2 Flow Rate FiO2 01/25/25 20:30 97.6 79 16 106/16 (46) 95 97.6 01/25/25 20:30 Mechanical Ventilator+ 75 75 01/23/25 12:00 8 Total Intake and Output 01/24/25 01/24/25 01/25/25 15:00 23:00 07:00 Intake Total 207.15 ml 244.925 ml 371.000 ml Balance 207.15 ml 244.925 ml 371.000 ml medications Current Medications Medications Dose Ordered Sig/Seth Route Start Time Stop Time Status Last Admin Dose Admin Acetaminophen 325 mg Q4HP PRN PO 01/10/25 00:30 01/22/25 00:29 325 MG Ondansetron HCl 4 mg Q4HP PRN IV 01/10/25 00:30 01/20/25 16:19 4 MG Atorvastatin Calcium 40 mg HS PO 01/10/25 22:00 01/24/25 21:30 40 MG Levothyroxine Sodium 125 mcg QAM@0600 PO 01/11/25 06:00 01/24/25 05:37 125 MCG Sodium Chloride 10 ml QSHIFT@, IV 01/12/25 22:00 01/25/25 09:56 10 ML Dextrose 50 ml UD PRN IV 01/14/25 14:15 01/24/25 12:10 50 ML Fluconazole 100 mg POSTDI PRN PO 01/15/25 12:45 Cancel Ertapenem 0.5 gm/ Sodium Chloride 50 ml @ 100 mls/hr DAILY IV 01/19/25 10:00 01/25/25 09:56 100 MLS/HR Albumin Human 100 ml @ 100 mls/hr WD PRN IV 01/18/25 21:00 01/19/25 02:44 100 MLS/HR Guaifenesin/ Dextromethorphan 10 ml TID PO 01/20/25 14:00 01/22/25 21:38 10 ML Albuterol 2.5 mg Q4HPRN PRN NEB 01/20/25 16:00 01/23/25 03:24 2.5 MG Vancomycin HCl 0 ml @ 0 mls/hr PER PHARMACY IV 01/21/25 12:15 Fentanyl Citrate 250 ml @ 2.5 mls/hr Q24H IV 01/23/25 13:45 01/25/25 17:56 12.5 MLS/HR Norepinephrine Bitartrate 32 mg/ Sodium Chloride 250 ml @ 0.938 mls/ hr Q24H IV 01/23/25 14:45 01/23/25 16:00 0.938 MLS/HR Enteral Nutritional Formula 1,000 ml 30ML/HR GT 01/23/25 18:00 01/24/25 18:06 1,000 ML Pantoprazole Sodium 40 mg BID IV 01/23/25 22:00 01/25/25 09:56 40 MG Diagnostic Test (Pha) 1 strip Q6HP 01/24/25 00:00 01/25/25 18:00 1 STRIP Hydrocortisone Sodium Succinate 50 mg Q6HR IV 01/24/25 18:00 01/25/25 17:26 50 MG Sodium Chloride 1,000 ml @ 200 mls/hr Q5H IV 01/25/25 11:00 Cancel Amiodarone HCl 100 mg Q12HR PO 01/25/25 22:00 Midazolam HCl 100 ml @ 1 mls/hr Q24H IV 01/25/25 18:00 laboratory and microbiology Laboratory Tests 01/25/25 02:45 Test 01/25/25 02:45 Range/Units Serum Glucose 94 74-106 mg/dL Problem List/Assessment/Plan Problem List/Assessment/Plan acute hemoglobin drop to 7 sp amputation amputation sp appears without bleeding, hematoma platlets low PLan: continue current antibiotics replete platlets >50, hb >7 defer to primary and GI service for workup of anemia/blood loss Dietary Evaluation Review Comments: Nutrition Recommendation 1) CCHO 60gm + renal standard diet 2) Nephro-santosh 1 tab daily 3) Lexx 1 pk daily 4) Monitor PO intake, lab values, weight trend, and I/O Expected Outcomes/Goals: To meet >75% estimated needs Wound to improve Fu 3-5 days CC Plasma Assessment Blood Product Administration S: [id number] CONY TAYLOR MD Jan 25, 2025 21:22
--- NOTE | 2025-01-25 21:22 | DVHPN2 ---
Consult Progress Note Date Seen: Jan 23, 2025 Subjective Patient reports: Feels better (started on levophed and pheylephrine, vancomycin empirically started, MAPs>65) Objective vital signs Vital Sign Date Time Temp Pulse Resp B/P (MAP) Pulse Ox O2 Delivery O2 Flow Rate FiO2 01/25/25 20:30 97.6 79 16 106/16 (46) 95 97.6 01/25/25 20:30 Mechanical Ventilator+ 75 75 01/23/25 12:00 8 Total Intake and Output 01/24/25 01/24/25 01/25/25 15:00 23:00 07:00 Intake Total 207.15 ml 244.925 ml 371.000 ml Balance 207.15 ml 244.925 ml 371.000 ml medications Current Medications Medications Dose Ordered Sig/Seth Route Start Time Stop Time Status Last Admin Dose Admin Acetaminophen 325 mg Q4HP PRN PO 01/10/25 00:30 01/22/25 00:29 325 MG Ondansetron HCl 4 mg Q4HP PRN IV 01/10/25 00:30 01/20/25 16:19 4 MG Atorvastatin Calcium 40 mg HS PO 01/10/25 22:00 01/24/25 21:30 40 MG Levothyroxine Sodium 125 mcg QAM@0600 PO 01/11/25 06:00 01/24/25 05:37 125 MCG Sodium Chloride 10 ml QSHIFT@ IV 01/12/25 22:00 01/25/25 09:56 10 ML Dextrose 50 ml UD PRN IV 01/14/25 14:15 01/24/25 12:10 50 ML Fluconazole 100 mg POSTDI PRN PO 01/15/25 12:45 Cancel Ertapenem 0.5 gm/ Sodium Chloride 50 ml @ 100 mls/hr DAILY IV 01/19/25 10:00 01/25/25 09:56 100 MLS/HR Albumin Human 100 ml @ 100 mls/hr WD PRN IV 01/18/25 21:00 01/19/25 02:44 100 MLS/HR Guaifenesin/ Dextromethorphan 10 ml TID PO 01/20/25 14:00 01/22/25 21:38 10 ML Albuterol 2.5 mg Q4HPRN PRN NEB 01/20/25 16:00 01/23/25 03:24 2.5 MG Vancomycin HCl 0 ml @ 0 mls/hr PER PHARMACY IV 01/21/25 12:15 Fentanyl Citrate 250 ml @ 2.5 mls/hr Q24H IV 01/23/25 13:45 01/25/25 17:56 12.5 MLS/HR Norepinephrine Bitartrate 32 mg/ Sodium Chloride 250 ml @ 0.938 mls/ hr Q24H IV 01/23/25 14:45 01/23/25 16:00 0.938 MLS/HR Enteral Nutritional Formula 1,000 ml 30ML/HR GT 01/23/25 18:00 01/24/25 18:06 1,000 ML Pantoprazole Sodium 40 mg BID IV 01/23/25 22:00 01/25/25 09:56 40 MG Diagnostic Test (Pha) 1 strip Q6HP 01/24/25 00:00 01/25/25 18:00 1 STRIP Hydrocortisone Sodium Succinate 50 mg Q6HR IV 01/24/25 18:00 01/25/25 17:26 50 MG Sodium Chloride 1,000 ml @ 200 mls/hr Q5H IV 01/25/25 11:00 Cancel Amiodarone HCl 100 mg Q12HR PO 01/25/25 22:00 Midazolam HCl 100 ml @ 1 mls/hr Q24H IV 01/25/25 18:00 laboratory and microbiology Laboratory Tests 01/25/25 02:45 Test 01/25/25 02:45 Range/Units Serum Glucose 94 74-106 mg/dL Problem List/Assessment/Plan Problem List/Assessment/Plan in ICU, on multiple pressors sp PRBCs for blood loss and platlets sp surgery ischemic changes to surgical site, no signs of hematoma operative cultures w/ ESBL klebsiella and bacteroides suspect septisemia vs blood loss complications from recent surgery. plan: continue vancomycin and ertapenem for now will fu on blood cultures MAPs>65, pressor support as needed. Dietary Evaluation Review Comments: Nutrition Recommendation 1) CCHO 60gm + renal standard diet 2) Nephro-santosh 1 tab daily 3) Lexx 1 pk daily 4) Monitor PO intake, lab values, weight trend, and I/O Expected Outcomes/Goals: To meet >75% estimated needs Wound to improve Fu 3-5 days CC Plasma Assessment Blood Product Administration S: [id number] CONY TAYLOR MD Jan 25, 2025 21:22
--- NOTE | 2025-01-25 21:23 | DVHPN2 ---
Consult Progress Note Date Seen: Jan 24, 2025 Subjective Patient reports: Feels better (intubated on FIO2 100%, peep 10, off pheyephrine. sp bronch and bal) Objective vital signs Vital Sign Date Time Temp Pulse Resp B/P (MAP) Pulse Ox O2 Delivery O2 Flow Rate FiO2 01/25/25 20:30 97.6 79 16 106/16 (46) 95 97.6 01/25/25 20:30 Mechanical Ventilator+ 75 75 01/23/25 12:00 8 Total Intake and Output 01/24/25 01/24/25 01/25/25 15:00 23:00 07:00 Intake Total 207.15 ml 244.925 ml 371.000 ml Balance 207.15 ml 244.925 ml 371.000 ml medications Current Medications Medications Dose Ordered Sig/Seth Route Start Time Stop Time Status Last Admin Dose Admin Acetaminophen 325 mg Q4HP PRN PO 01/10/25 00:30 01/22/25 00:29 325 MG Ondansetron HCl 4 mg Q4HP PRN IV 01/10/25 00:30 01/20/25 16:19 4 MG Atorvastatin Calcium 40 mg HS PO 01/10/25 22:00 01/24/25 21:30 40 MG Levothyroxine Sodium 125 mcg QAM@0600 PO 01/11/25 06:00 01/24/25 05:37 125 MCG Sodium Chloride 10 ml QSHIFT@ IV 01/12/25 22:00 01/25/25 09:56 10 ML Dextrose 50 ml UD PRN IV 01/14/25 14:15 01/24/25 12:10 50 ML Fluconazole 100 mg POSTDI PRN PO 01/15/25 12:45 Cancel Ertapenem 0.5 gm/ Sodium Chloride 50 ml @ 100 mls/hr DAILY IV 01/19/25 10:00 01/25/25 09:56 100 MLS/HR Albumin Human 100 ml @ 100 mls/hr WD PRN IV 01/18/25 21:00 01/19/25 02:44 100 MLS/HR Guaifenesin/ Dextromethorphan 10 ml TID PO 01/20/25 14:00 01/22/25 21:38 10 ML Albuterol 2.5 mg Q4HPRN PRN NEB 01/20/25 16:00 01/23/25 03:24 2.5 MG Vancomycin HCl 0 ml @ 0 mls/hr PER PHARMACY IV 01/21/25 12:15 Fentanyl Citrate 250 ml @ 2.5 mls/hr Q24H IV 01/23/25 13:45 01/25/25 17:56 12.5 MLS/HR Norepinephrine Bitartrate 32 mg/ Sodium Chloride 250 ml @ 0.938 mls/ hr Q24H IV 01/23/25 14:45 01/23/25 16:00 0.938 MLS/HR Enteral Nutritional Formula 1,000 ml 30ML/HR GT 01/23/25 18:00 01/24/25 18:06 1,000 ML Pantoprazole Sodium 40 mg BID IV 01/23/25 22:00 01/25/25 09:56 40 MG Diagnostic Test (Pha) 1 strip Q6HP 01/24/25 00:00 01/25/25 18:00 1 STRIP Hydrocortisone Sodium Succinate 50 mg Q6HR IV 01/24/25 18:00 01/25/25 17:26 50 MG Sodium Chloride 1,000 ml @ 200 mls/hr Q5H IV 01/25/25 11:00 Cancel Amiodarone HCl 100 mg Q12HR PO 01/25/25 22:00 Midazolam HCl 100 ml @ 1 mls/hr Q24H IV 01/25/25 18:00 laboratory and microbiology Laboratory Tests 01/25/25 02:45 Test 01/25/25 02:45 Range/Units Serum Glucose 94 74-106 mg/dL Problem List/Assessment/Plan Problem List/Assessment/Plan intubated , high FIo2 and peep needs cxr w 4. Worsening right-sided pneumonia. 5. Cardiomegaly and left chest AICD with increased interstitial prominence suggestive of CHF exacerbation. 12 mcg of levophed plan: continue vancomycin and ertapenem will fu on bronch + BAL cultures diuresis via dialysis as tolerated hb stable, continue to monitor Plan discussed with: Patient Dietary Evaluation Review Comments: Nutrition Recommendation 1) CCHO 60gm + renal standard diet 2) Nephro-santosh 1 tab daily 3) Lexx 1 pk daily 4) Monitor PO intake, lab values, weight trend, and I/O Expected Outcomes/Goals: To meet >75% estimated needs Wound to improve Fu 3-5 days CC Plasma Assessment Blood Product Administration S: [id number] CONY TAYLOR MD Jan 25, 2025 21:23
--- NOTE | 2025-01-25 21:23 | DVHPN2 ---
Consult Progress Note Date Seen: Jan 25, 2025 Subjective Patient reports: Feels better (started on hydrocortisone, levophed of 12, hb stable, FiO2 down to 80%) Objective vital signs Vital Sign Date Time Temp Pulse Resp B/P (MAP) Pulse Ox O2 Delivery O2 Flow Rate FiO2 01/25/25 20:30 97.6 79 16 106/16 (46) 95 97.6 01/25/25 20:30 Mechanical Ventilator+ 75 75 01/23/25 12:00 8 Total Intake and Output 01/24/25 01/24/25 01/25/25 15:00 23:00 07:00 Intake Total 207.15 ml 244.925 ml 371.000 ml Balance 207.15 ml 244.925 ml 371.000 ml medications Current Medications Medications Dose Ordered Sig/Seth Route Start Time Stop Time Status Last Admin Dose Admin Acetaminophen 325 mg Q4HP PRN PO 01/10/25 00:30 01/22/25 00:29 325 MG Ondansetron HCl 4 mg Q4HP PRN IV 01/10/25 00:30 01/20/25 16:19 4 MG Atorvastatin Calcium 40 mg HS PO 01/10/25 22:00 01/24/25 21:30 40 MG Levothyroxine Sodium 125 mcg QAM@0600 PO 01/11/25 06:00 01/24/25 05:37 125 MCG Sodium Chloride 10 ml QSHIFT@ IV 01/12/25 22:00 01/25/25 09:56 10 ML Dextrose 50 ml UD PRN IV 01/14/25 14:15 01/24/25 12:10 50 ML Fluconazole 100 mg POSTDI PRN PO 01/15/25 12:45 Cancel Ertapenem 0.5 gm/ Sodium Chloride 50 ml @ 100 mls/hr DAILY IV 01/19/25 10:00 01/25/25 09:56 100 MLS/HR Albumin Human 100 ml @ 100 mls/hr WD PRN IV 01/18/25 21:00 01/19/25 02:44 100 MLS/HR Guaifenesin/ Dextromethorphan 10 ml TID PO 01/20/25 14:00 01/22/25 21:38 10 ML Albuterol 2.5 mg Q4HPRN PRN NEB 01/20/25 16:00 01/23/25 03:24 2.5 MG Vancomycin HCl 0 ml @ 0 mls/hr PER PHARMACY IV 01/21/25 12:15 Fentanyl Citrate 250 ml @ 2.5 mls/hr Q24H IV 01/23/25 13:45 01/25/25 17:56 12.5 MLS/HR Norepinephrine Bitartrate 32 mg/ Sodium Chloride 250 ml @ 0.938 mls/ hr Q24H IV 01/23/25 14:45 01/23/25 16:00 0.938 MLS/HR Enteral Nutritional Formula 1,000 ml 30ML/HR GT 01/23/25 18:00 01/24/25 18:06 1,000 ML Pantoprazole Sodium 40 mg BID IV 01/23/25 22:00 01/25/25 09:56 40 MG Diagnostic Test (Pha) 1 strip Q6HP 01/24/25 00:00 01/25/25 18:00 1 STRIP Hydrocortisone Sodium Succinate 50 mg Q6HR IV 01/24/25 18:00 01/25/25 17:26 50 MG Sodium Chloride 1,000 ml @ 200 mls/hr Q5H IV 01/25/25 11:00 Cancel Amiodarone HCl 100 mg Q12HR PO 01/25/25 22:00 Midazolam HCl 100 ml @ 1 mls/hr Q24H IV 01/25/25 18:00 laboratory and microbiology Laboratory Tests 01/25/25 02:45 Test 01/25/25 02:45 Range/Units Serum Glucose 94 74-106 mg/dL Problem List/Assessment/Plan Problems(with codes): (1) Septic shock (2) Blood loss, postoperative (3) Blood loss anemia (4) Hospital-acquired pneumonia (5) Toe fracture, right (6) Toe osteomyelitis, right (7) Elevated liver enzymes Problem List/Assessment/Plan 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 BAL cultures and blood culture pending remains hypoxic presumptive RLL pneumonia from aspiration and pulmonary edema remains hypotensive from multifactorial shock sp surgery Plan: continue vancomycin and ertapenem for now will fu on cultures suspect leukocytosis is related hydrocortisone use Plan discussed with: Patient Dietary Evaluation Review Comments: Nutrition Recommendation 1) CCHO 60gm + renal standard diet 2) Nephro-santosh 1 tab daily 3) Lexx 1 pk daily 4) Monitor PO intake, lab values, weight trend, and I/O Expected Outcomes/Goals: To meet >75% estimated needs Wound to improve Fu 3-5 days CC Plasma Assessment Blood Product Administration S: [id number] CONY TAYLOR MD Jan 25, 2025 21:23
[2025-01-25] MEDS: MIDAZOLAM DRIP 100 mg/100mL NS 100 ML IV SCH (21:58)
[2025-01-25] MEDS: AMIODARONE HCL 200 MG TAB PO SCH (21:59)
--- NOTE | 2025-01-25 22:47 | DVHINCON2 ---
Date of service: Jan 25, [address] Bowie [facility] Reason for Consultation Acute hypoxic respiratory failure requiring mechanical ventilator History of Present Illness A 64-year-old woman with PMHx of ESRD on HD, DM, HTN, and hypothyroidism who was transferred to the ER from [place] on 01/09/25 for the management of right foot osteomyelitis and right 1st distal phalanx transverse fracture. Patient hit her right foot 2-3 months back, since then has been following with [place]; she was initially diagnosed with osteomyelitis and was prescribed doxycycline and Augmentin and discharged. Patient returned to [place] on day of presentation for purulent drainage and pain of the right big toe, and was noted to have ulcerations. Right foot x-ray showed transverse fracture of the base of 1st distal phalanx, vascular calcification. Patient denied any fever, chills, nausea, or vomiting. She complained of pain at the right big toe. She was receiving IV vancomycin and Zosyn at [place]. Initial labs showed K 3.7, Hb: 10.2, and WBC is 11.2. Patient was admitted for further care. Pulmonary consultation is requested for evaluation and management of acute hypoxic respiratory failure requiring mechanical ventilator. Review of Systems: Unable to obtain d/t intubated status Past Medical History: Diabetes mellitus type 2 on insulin, hypertension, ESRD on hemodialysis with [facility]Wednesday//Wednesday. Sick sinus, status post PPM/AICD. Past Surgical History: Sick sinus, status post PPM/AICD. Medications: Reviewed. Allergies: No known drug allergies. Family History: No family history of premature CAD. No family history of lung disorders. Social History: Nonsmoker. No alcohol or illicit drug use. Family History: Diabetes mellitus G8 MOTHER G8 FATHER Allergies: Coded Allergies: NO KNOWN ALLERGIES (Unverified , 01/09/25) Home Meds Reported Medications Fluoxetine HCl (Fluoxetine HCl) 20 Mg Cap, 1 CAP PO DAILY for 30 Days, #30 01/15/25 Trazodone Hcl (Trazodone Hcl) 50 Mg Tab, 1 TAB PO DAILY for 30 Days, #30 01/15/25 Atorvastatin Calcium (ATORVASTATIN CALCIUM) 40 Mg Tab, 1 TAB PO DAILY for 30 Days, #30 01/15/25 Furosemide (Furosemide) 40 Mg Tab, 1 TAB PO BID for 30 Days, #60 01/15/25 Carvedilol (Carvedilol) 3.125 Mg Tab, 1 TAB PO BID for 30 Days, #60 01/15/25 Levothyroxine Sodium (Levothyroxine Sodium) 137 Mcg Tab, 1 TAB PO DAILY for 30 Days, #30 01/15/25 Current Medications Current Medications Medications (Trade) Dose Ordered Sig/Seth Route PRN Reason Start Time Stop Time Status Last Admin Sodium Chloride 1,000 ml @ 200 mls/hr Q5H IV 01/25/25 11:00 Cancel Amiodarone HCl (Cordarone Tablet) 100 mg Q12HR PO 01/25/25 22:00 01/25/25 21:59 Midazolam HCl 100 ml @ 1 mls/hr Q24H IV 01/25/25 18:00 01/25/25 21:58 Vital Signs Vital Signs Date Time Temp Pulse Resp B/P (MAP) Pulse Ox O2 Delivery O2 Flow Rate FiO2 01/25/25 21:58 105/25 01/25/25 21:37 79 01/25/25 21:37 75 01/25/25 21:37 18 95 Mechanical Ventilator+ 01/25/25 20:30 97.6 97.6 01/23/25 12:00 8 Physical Exam Gen.: Patient lying in bed in medical ICU. Sedated, intubated on mechanical ventilator. Head: Normocephalic, atraumatic. Eyes: PERRLA. Ears: Normal external anatomy. Throat: Endotracheal tube and orogastric tube in place. Neck: Supple, trachea midline. Chest: Transmitted breath sounds bilaterally. Decreased air entry bilaterally. No wheezing. Bibasilar crackles. Cardiovascular: Positive S1, positive S2. Regular rate and rhythm. Abdomen: Positive bowel sounds in all 4 quadrants. Soft, nontender, nondistended. : Lofton in place. Normal external genitalia. Rectal: Deferred. Skin: Warm, dry. Right foot osteomyelitis. Extremities: 2+ radial pulses bilaterally. No lower extremity edema. Neuro: Sedated. Labs/Diagnostic Data Labs Test 01/25/25 17:29 01/25/25 08:51 01/25/25 02:45 01/24/25 02:18 Range/Units POC Glucose 185 H 70-106 mg/dl Blood Gas Specimen Type Arterial Blood Gas Sample Site Left radial Blood Gas Patient Temperature 37.0 Arterial Blood Date Drawn [id number] Arterial Blood pH 7.324 L 7.350-7.450 Arterial Blood Partial Pressure CO2 56.1 H 32.0-45.0 mmHg Arterial Blood Partial Pressure O2 84.4 83.0-108.0 mmHg Arterial Blood HCO3 28.5 H 21.0-28.0 mmol/L Arterial Blood Oxygen Saturation 95.0 94.0-98.0 % Arterial Blood Base Excess 1.6 -2.0-3.0 mmol/L Arterial Blood Oxyhemoglobin 94.5 94.0-98.0 % Arterial Blood Carboxyhemoglobin 0.3 L 0.5-1.5 % Arterial Blood Methemoglobin 0.2 0.0-1.5 % Gene Test Modified Blood Gas Total Hemoglobin 11.60 L 12.0-16.0 g/dL Blood Gas Set Respiration Rate 18.0 Blood Gas Modality Vent - ac FiO2 % 85.0 Blood Gas Tidal Volume 400.0 Blood Gas PEEP or CPAP 10.0 White Blood Count 8.4 # 4.4-10.8 10^3/uL Red Blood Count 3.33 L 4.0-5.20 10^6/uL Hemoglobin 10.3 #L 12.2-16.2 g/dL Hematocrit 31.0 #L 36.0-46.0 % Mean Corpuscular Volume 93.1 80.0-100.0 fL Mean Corpuscular Hemoglobin 31.0 28.0-32.0 pg Mean Corpuscular Hemoglobin Concent 33.3 32.0-36.0 g/dL Red Cell Distribution Width 16.9 H 11.8-14.3 % Platelet Count 80 L 140-450 10^3/uL Mean Platelet Volume 10.1 6.9-10.8 fL Neutrophils (%) (Auto) 95.7 H 37.0-80.0 % Lymphocytes (%) (Auto) 1.6 L 10.0-50.0 % Monocytes (%) (Auto) 2.4 0.0-12.0 % Eosinophils (%) (Auto) 0.0 0.0-7.0 % Basophils (%) (Auto) 0.3 0.0-2.0 % Neutrophils # (Auto) 8.0 1.6-8.6 10 ^3/uL Lymphocytes # (Auto) 0.1 L 0.4-5.4 10 ^3/uL Monocytes # (Auto) 0.2 0-1.3 10 ^3/uL Eosinophils # (Auto) 0 0-0.8 10 ^3/uL Basophils # (Auto) 0 0-0.2 10 ^3/uL Nucleated Red Blood Cells 0.3 % Sodium Level 142 136-145 mmol/L Potassium Level 3.7 3.5-5.1 mmol/L Chloride Level 103 98-107 mmol/L Carbon Dioxide Level 30 20-31 mmol/L Anion Gap 9 5-15 Blood Urea Nitrogen 17 9-23 mg/dL Creatinine 2.84 H 0.550-1.02 mg/dL Glomerular Filtration Rate Calc 18 >90 mL/min BUN/Creatinine Ratio 6.0 L 10.0-20.0 Serum Glucose 94 74-106 mg/dL Calcium Level 8.0 L 8.7-10.4 mg/dL B-Type Natriuretic Peptide 4977.28 0-100 pg/mL Random Vancomycin Level 23.6 H 5-10 ug/mL Lactic Acid Level 1.0 0.4-2.0 mmol/L Phosphorus Level 3.3 2.4-5.1 mg/dL Magnesium Level 1.7 1.6-2.6 mg/dL Total Bilirubin 0.6 0.2-1.0 mg/dL Aspartate Amino Transferase (AST) 13-40 U/L Alanine Aminotransferase (ALT) 273 H 7-40 U/L Alkaline Phosphatase 191 H 46-116 U/L Total Protein 4.7 L 5.7-8.2 g/dL Albumin 2.6 L 3.2-4.8 g/dL Test 01/23/25 20:00 01/23/25 08:53 01/23/25 08:30 01/21/25 20:23 Range/Units Influenza Type A Antigen Negative Negative Influenza Type B Antigen Negative Negative SARS-CoV-2 Antigen (Rapid) Negative NEGATIVE Prothrombin Time 17.5 H 9.3-11.8 sec Prothrombin Time INR 1.74 H 0.9-1.15 Activated Partial Thromboplast Time 48.4 H 24.5-34.5 SEC Blood Gas Liter Flow 8.00 Stool Occult Blood Positive Negative Stool Occult Blood Sample #3 Negative Test 01/17/25 10:57 01/10/25 11:31 01/10/25 09:18 01/09/25 23:40 Range/Units Platelet Estimate Decrea Hemoglobin A1c 7.3 H <5.7 % A1C Triglycerides Level 79 < 150 mg/dL Cholesterol Level 91 < 200 mg/dL LDL Cholesterol 35 < 100 mg/dL HDL Cholesterol 37 L 40-59 mg/dL Vitamin B12 Level > 4000 H 211-911 pg/mL Vitamin D 25-Hydroxy 63.2 30.0-100 ng/mL Thyroid Stimulating Hormone (TSH) 3.78 0.55-4.78 uIU/mL Urine Color Yellow Yellow Urine Clarity Turbid H Clear Urine pH 6.5 5.0-9.0 Urine Specific [place] 1.019 1.001-1.035 Urine Protein 2+ H Negative Urine Ketones Negative Negative Urine Blood Negative Negative /uL Urine Nitrite Negative Negative Urine Bilirubin Negative Negative Urine Urobilinogen Normal Negative mg/dL Urine Leukocyte Esterase Trace Negative /uL Urine RBC 7 0 - 4 /hpf Urine Microscopic WBC 4 0-5 /HPF Urine Squamous Epithelial Cells Few <5 /hpf Urine Bacteria None seen None Seen /hpf Urine Yeast (Budding) Moderate None Seen /hpf Urine Glucose 1+ H Normal mg/dL Urine Opiates Screen Neg NEGATIVE Urine Fentanyl Screen Neg NEGATIVE Urine Barbiturates Screen Neg NEGATIVE Urine Phencyclidine Screen Neg NEGATIVE Urine Amphetamines Screen Neg NEGATIVE Urine Benzodiazepines Screen Neg NEGATIVE Urine Cocaine Screen Neg NEGATIVE Urine Cannabinoids Screen Neg NEGATIVE Erythrocyte Sedimentation Rate 54 H 0-20 mm/hr C-Reactive Protein High Sensitivity 4.44 H <1.0 mg/dL Hepatitis B Surface Antigen Negative Negative Hepatitis C Antibody Negative Negative Microbiology Date/Time Source Procedure Growth Status 01/24/25 10:06 Bronchial Washings Gram Stain - Final Resulted 01/24/25 10:06 Bronchial Washings Respiratory Culture - Preliminary Resulted 01/23/25 19:15 Blood Blood Culture - Preliminary NO GROWTH AFTER 48 HOURS OF INCUBATION. Resulted 01/23/25 09:15 Nose MRSA Screen - Final Complete 01/10/25 09:18 Voided Urine Urine Culture - Final Presumptive Sully albicans Yeast, not Sully albicans Complete Assessment Impression: Acute hypoxic respiratory failure On mechanical ventilator Acute CHF exacerbation End-stage renal disease, on hemodialysis Osteomyelitis Overweight Plan: s/p intubation on mechanical ventilator. ABG reviewed, slight acidemia. Poor ventilation. On AC mode; RR 18, VT 400, PEEP 10, FiO2 85% Remains on high PEEP, FiO2 requirements. S/p bronchoscopy on 11/24/24 - Preliminary results from Bronchial washings show no growth. Titrate FIO2 to keep O2 saturation above 90%. VAP bundle. Daily ABG and CXR while intubated Sedate for ventilator synchrony On Fentanyl Continue bronchodilators. Continue antibiotics. Follow up cultures. Started on IV steroids Pressors for hemodynamic support Levophed 12 mcg/min Titrate to keep mean arterial pressure greater than 65 mmHg. Wound care. Monitor H&H. Hemodialysis per Nephrology - s/p HD with 3 L removed yesterday Monitor renal function Monitor electrolytes. Supplement as necessary. Monitor ins and outs. Maintain euvolemia. GI prophylaxis. DVT prophylaxis. Prognosis: Poor given patient's multiple co-morbidities. Condition: Critical Rest of plan per hospitalist and other consultants. A total of 35 minutes of critical care time was spent reviewing the patient record, examining the patient, making a diagnostic and therapeutic plan, discussing this plan with the medical personnel, following up on diagnostic studies and following the patient for clinical stability excluding any and all procedures. At least 50% of this time was spent in direct, [id number] contact. Thank you, Dr. Bowie, for allowing me to participate in this patient's care. Further recommendations will depend on the patient's clinical course. Please do not hesitate to contact me if you have any questions or concerns. This medical document was created using an electronic medical record system with [employer] dictation system. Although these documentations are being carefully reviewed, there may still be some phonetic and typographical changes. The errors are purely typographical, due to imperfection on the software program, and do not reflect any compromise in the patient's medical care. Plan discussed with: Daughter, Other (ALBERTINA Bishop/Dr. Bowie) Visit Coding Pulmonary Billing Provider: ALCON GUTHRIE MD Date of Service if different f: Jan 25, 2025 Common Visit Codes: 44971-[id number] INP/OBS CARE (HIGH), [id number] CARE 30- 74 MIN ALCON GUTHRIE MD Jan 25, 2025 22:47
[2025-01-26] VITALS (118 sets, daily range): BP systolic 87–193; BP diastolic 11–124; PULSE 75–91; RESP 15–33; TEMP 82.4–99.7; O2SAT 87–100
[2025-01-26 04:15] LABS: Hematocrit 32.2 % (36.0-46.0); Hemoglobin 10.7 g/dL (12.2-16.2); Mean Corpuscular Hemoglobin 30.8 pg (28.0-32.0); Mean Corpuscular Volume 93.0 fL (80.0-100.0); Nucleated Red Blood Cells % 0.9 %
[2025-01-26 04:40] LABS: Chloride 102 mmol/L (98-107); Potassium 4.1 mmol/L (3.5-5.1); Sodium 141 mmol/L (136-145)
[2025-01-26 04:41] LABS: Anion Gap 12 (5-15); Carbon Dioxide 27 mmol/L (20-31)
[2025-01-26 04:46] LABS: BUN/Creatinine Ratio 7.2 (10.0-20.0)
[2025-01-26 04:47] LABS: Magnesium 2.2 mg/dL (1.6-2.6)
[2025-01-26 04:52] LABS: Blood Urea Nitrogen 28 mg/dL (9-23); Calcium 8.2 mg/dL (8.7-10.4); Glucose 187 mg/dL (74-106)
[2025-01-26 06:45] LABS: Base Excess 1.1 mmol/L (-2.0-3.0)
--- NOTE | 2025-01-26 08:49 | DVH ---
CHEST RADIOGRAPH Indication: RESPIRATORY FAILURE Technique: Portable AP view of the chest was performed. Comparison: XY CHEST PORTABLE on DOS: 01/23/25, XY CHEST PORTABLE on DOS: 01/20/25, XY CHEST XRAY 1 V IEW on DOS: 01/10/25 FINDINGS: Lines and Tubes: Endotracheal tube, nasogastric tube, left central venous catheter unchanged. Left pa cemaker. Lungs: No focal consolidation. Pleura: Small bilateral pleural effusions. No pneumothorax. Cardiomediastinal contours: Cardiomegaly Bones: No acute osseous abnormality. IMPRESSION: Cardiomegaly with CHF. Small bilateral pleural effusions. Improved opacity right upper lobe.
[2025-01-26] MEDS ORDERED: Nepro With Carb Steady 1 Liter Bottle GT SCH (09:15)
--- NOTE | 2025-01-26 10:22 | DVHPN2 ---
Consult Progress Note Date Seen: Jan 26, 2025 Subjective Other Systems: No overnight cardiac events reported Objective vital signs Vital Sign Date Time Temp Pulse Resp B/P (MAP) Pulse Ox O2 Delivery O2 Flow Rate FiO2 01/26/25 09:05 77 22 103/25 (51) 92 90 01/26/25 08:01 Mechanical Ventilator+ 01/26/25 07:00 98.1 208.6 Total Intake and Output 01/25/25 01/25/25 01/26/25 15:00 23:00 07:00 Intake Total 596.8 ml 268.525 ml 207.063 ml Balance 596.8 ml 268.525 ml 207.063 ml medications Current Medications Medications Dose Ordered Sig/Seth Route Start Time Stop Time Status Last Admin Dose Admin Acetaminophen 325 mg Q4HP PRN PO 01/10/25 00:30 01/22/25 00:29 325 MG Ondansetron HCl 4 mg Q4HP PRN IV 01/10/25 00:30 01/20/25 16:19 4 MG Atorvastatin Calcium 40 mg HS PO 01/10/25 22:00 01/25/25 21:59 40 MG Levothyroxine Sodium 125 mcg QAM@0600 PO 01/11/25 06:00 01/26/25 05:22 125 MCG Sodium Chloride 10 ml QSHIFT@10,22 IV 01/12/25 22:00 01/25/25 21:59 10 ML Dextrose 50 ml UD PRN IV 01/14/25 14:15 01/24/25 12:10 50 ML Fluconazole 100 mg POSTDI PRN PO 01/15/25 12:45 Cancel Ertapenem 0.5 gm/ Sodium Chloride 50 ml @ 100 mls/hr DAILY IV 01/19/25 10:00 01/25/25 09:56 100 MLS/HR Albumin Human 100 ml @ 100 mls/hr WD PRN IV 01/18/25 21:00 01/19/25 02:44 100 MLS/HR Guaifenesin/ Dextromethorphan 10 ml TID PO 01/20/25 14:00 01/22/25 21:38 10 ML Albuterol 2.5 mg Q4HPRN PRN NEB 01/20/25 16:00 01/23/25 03:24 2.5 MG Vancomycin HCl 0 ml @ 0 mls/hr PER PHARMACY IV 01/21/25 12:15 Fentanyl Citrate 250 ml @ 2.5 mls/hr Q24H IV 01/23/25 13:45 01/25/25 17:56 12.5 MLS/HR Norepinephrine Bitartrate 32 mg/ Sodium Chloride 250 ml @ 0.938 mls/ hr Q24H IV 01/23/25 14:45 01/25/25 21:57 5.625 MLS/HR Enteral Nutritional Formula 1,000 ml 30ML/HR GT 01/23/25 18:00 01/24/25 18:06 1,000 ML Pantoprazole Sodium 40 mg BID IV 01/23/25 22:00 01/25/25 21:58 40 MG Diagnostic Test (Pha) 1 strip Q6HP 01/24/25 00:00 01/26/25 05:22 1 STRIP Hydrocortisone Sodium Succinate 50 mg Q6HR IV 01/24/25 18:00 01/26/25 05:21 50 MG Sodium Chloride 1,000 ml @ 200 mls/hr Q5H IV 01/25/25 11:00 Cancel Amiodarone HCl 100 mg Q12HR PO 01/25/25 22:00 01/25/25 21:59 100 MG Midazolam HCl 100 ml @ 1 mls/hr Q24H IV 01/25/25 18:00 01/25/25 21:58 3 MLS/HR Enteral Nutritional Formula 1,000 ml 30ML/HR GT 01/26/25 09:15 UNV Examination: GENERAL:Abnormal, LUNGS:Abnormal, CVS:Abnormal (Sinus rhythm with occassional PVCs. On single-vasopressor), NEURO:Abnormal laboratory and microbiology Laboratory Tests 01/26/25 03:48 Test 01/26/25 03:48 Range/Units Serum Glucose 187 H 74-106 mg/dL Problem List/Assessment/Plan Problem List/Assessment/Plan Non-sustained ventricular tachycardia Peripheral arterial disease status post SURTASS ANALYST f the right peroneal artery () Right lower extremity cellulitis/osteomyelitis Chronic HFrEF, NYHA class II Biventricular heart failure Presence of AICD ([place]) Pulmonary hypertension, severe Dyslipidemia Thyroid disease End-stage renal disease on hemodialysis Severe anemia/thrombocytopenia s/p transfusions Type 2 diabetes mellitus Obesity Plan/Recommendation (Dr. Sanchez) Recent transthoracic echocardiogram revealed LVEF 20% with global hypokinesis (see full dictated report). Continue electrolyte replenishment as necessary K>4 & Mg>2 and low-dose amiodarone GT (monitor LFTs). Continue vasopressor for hemodynamic support. Currently off DAPT with recent SURTASS ANALYST of the RLE which places the patient at high-risk for in-stent restenosis, consider reinitiation when appropriate. Continue lipid-lowering agent. Initiate GDMT for HFrEF when able to tolerate. DVT/VTE prophylaxis: initiate SCDs. There is no further cardiac work-up indicated at this time. Kindly call with any questions or concerns. Thank you for allowing us to care for this patient. Critical care time: 30 min. This medical document was created using an electronic medical record system with voice recognition software and computerized dictation system. Although this document has been carefully reviewed, there might still be some phonetic and typographical errors. Occasional wrong-word or ``sound-alike substitutions may have occurred due to the inherent limitations of voice recognition software. These areas are purely typographical due to imperfections of the software programs and do not reflect any compromise in the patient's medical care. Please read the chart carefully and recognize, using context, where these substitutions have occurred. Plan discussed with: Other Dietary Evaluation Review Comments: Nutrition Recommendation 1) CCHO 60gm + renal standard diet 2) Nephro-santosh 1 tab daily 3) Lexx 1 pk daily 4) Monitor PO intake, lab values, weight trend, and I/O Expected Outcomes/Goals: To meet >75% estimated needs Wound to improve Fu 3-5 days CC Plasma Assessment Blood Product Administration S: [id number] Date of Service: Jan 26, 2025 Billing Provider: RENÉE LOBATO Cardiology Common Codes: 66006-[id number] CARE 30-74 MIN RENÉE LOBATO Jan 26, 2025 10:22
--- NOTE | 2025-01-26 11:13 | DVHPN2 ---
Progress Note - Dictate Date Seen: Jan 26, 2025 Medical Necessity Reason Pt with a Central, PICC or Fol: Yes The following are medically ne: Central Line, Lo[place]on Catheter Subjective Still intubated On 90% FiO2, peep of 10 Also on Levophed at 10 mcg per minute. vital signs Vital Sign Date Time Temp Pulse Resp B/P (MAP) Pulse Ox O2 Delivery O2 Flow Rate FiO2 01/26/25 09:05 77 22 103/25 (51) 92 90 01/26/25 08:01 Mechanical Ventilator+ 01/26/25 07:00 98.1 208.6 Total Intake and Output 01/25/25 01/25/25 01/26/25 15:00 23:00 07:00 Intake Total 596.8 ml 268.525 ml 207.063 ml Balance 596.8 ml 268.525 ml 207.063 ml medications Current Medications Medications Dose Ordered Sig/Seth Route Start Time Stop Time Status Last Admin Dose Admin Acetaminophen 325 mg Q4HP PRN PO 01/10/25 00:30 01/22/25 00:29 325 MG Ondansetron HCl 4 mg Q4HP PRN IV 01/10/25 00:30 01/20/25 16:19 4 MG Atorvastatin Calcium 40 mg HS PO 01/10/25 22:00 01/25/25 21:59 40 MG Levothyroxine Sodium 125 mcg QAM@0600 PO 01/11/25 06:00 01/26/25 05:22 125 MCG Sodium Chloride 10 ml QSHIFT@10,22 IV 01/12/25 22:00 01/25/25 21:59 10 ML Dextrose 50 ml UD PRN IV 01/14/25 14:15 01/24/25 12:10 50 ML Fluconazole 100 mg POSTDI PRN PO 01/15/25 12:45 Cancel Ertapenem 0.5 gm/ Sodium Chloride 50 ml @ 100 mls/hr DAILY IV 01/19/25 10:00 01/25/25 09:56 100 MLS/HR Albumin Human 100 ml @ 100 mls/hr WD PRN IV 01/18/25 21:00 01/19/25 02:44 100 MLS/HR Guaifenesin/ Dextromethorphan 10 ml TID PO 01/20/25 14:00 01/22/25 21:38 10 ML Albuterol 2.5 mg Q4HPRN PRN NEB 01/20/25 16:00 01/23/25 03:24 2.5 MG Vancomycin HCl 0 ml @ 0 mls/hr PER PHARMACY IV 01/21/25 12:15 Fentanyl Citrate 250 ml @ 2.5 mls/hr Q24H IV 01/23/25 13:45 01/25/25 17:56 12.5 MLS/HR Norepinephrine Bitartrate 32 mg/ Sodium Chloride 250 ml @ 0.938 mls/ hr Q24H IV 01/23/25 14:45 01/25/25 21:57 5.625 MLS/HR Enteral Nutritional Formula 1,000 ml 30ML/HR GT 01/23/25 18:00 01/24/25 18:06 1,000 ML Pantoprazole Sodium 40 mg BID IV 01/23/25 22:00 01/25/25 21:58 40 MG Diagnostic Test (Pha) 1 strip Q6HP 01/24/25 00:00 01/26/25 05:22 1 STRIP Hydrocortisone Sodium Succinate 50 mg Q6HR IV 01/24/25 18:00 01/26/25 05:21 50 MG Sodium Chloride 1,000 ml @ 200 mls/hr Q5H IV 01/25/25 11:00 Cancel Amiodarone HCl 100 mg Q12HR PO 01/25/25 22:00 01/25/25 21:59 100 MG Midazolam HCl 100 ml @ 1 mls/hr Q24H IV 01/25/25 18:00 01/25/25 21:58 3 MLS/HR objective intubated and sedated Pulmonary: Diminished breath sounds at bases Cardiovascular S1-S2, no S3 or S4 Abdomen: Bowel sounds positive, soft no rebound tenderness Skin: No rash Neurological: intubated laboratory and microbiology Laboratory Tests 01/26/25 03:48 Test 01/26/25 03:48 Range/Units Serum Glucose 187 H 74-106 mg/dL Problem List ESRD on HD Acute hypoxic respiratory failure Shock Right foot osteomyelitis Pneumonia DM hypothyroidism Leukocytosis Anemia Hyperphosphatemia Secondary hyperparathyroidism Thrombocytopenia Assessment/Plan HD on MWF schedule vent management as per pulmonary continue IV abx Monitor H/H closely and transfuse prn Scheduled for CT of the chest without contrast today. Dietary Evaluation Review Comments: Nutrition Recommendation 1) CCHO 60gm + renal standard diet 2) Nephro-santosh 1 tab daily 3) Lexx 1 pk daily 4) Monitor PO intake, lab values, weight trend, and I/O Expected Outcomes/Goals: To meet >75% estimated needs Wound to improve Fu 3-5 days Plan discussed with: Other CC Plasma Assessment Blood Product Administration S: [id number] RENETTA LORENZ MD Jan 26, 2025 11:13
[2025-01-26] MEDS: SODIUM CHL 0.9% 1000 ML BAG XX ONE (11:45)
--- NOTE | 2025-01-26 13:33 | DVHPN2 ---
Progress Note Date Seen: Jan 26, 2025 Resident Creating Document: MERLY THAKUR RESIDENT Medical Necessity Reason Pt with a Central, PICC or Fol: Yes The following are medically ne: Central Line, Lofton Catheter Subjective Review of Systems Patient seen and examined at the bedside H&H stable and increasing Continue on Protonix b.i.d. Patient's hemodynamic status worsened with increased requirement on the ventilator, we will hold off on any procedure as of now Objective vital signs Vital Sign Date Time Temp Pulse Resp B/P (MAP) Pulse Ox O2 Delivery O2 Flow Rate FiO2 01/26/25 13:06 79 22 90/31 (50) 96 90 01/26/25 11:31 Mechanical Ventilator+ 01/26/25 07:00 98.1 208.6 Total Intake and Output 01/25/25 01/25/25 01/26/25 15:00 23:00 07:00 Intake Total 596.8 ml 268.525 ml 207.063 ml Balance 596.8 ml 268.525 ml 207.063 ml medications Current Medications Medications Dose Ordered Sig/Seth Route Start Time Stop Time Status Last Admin Dose Admin Acetaminophen 325 mg Q4HP PRN PO 01/10/25 00:30 01/22/25 00:29 325 MG Ondansetron HCl 4 mg Q4HP PRN IV 01/10/25 00:30 01/20/25 16:19 4 MG Atorvastatin Calcium 40 mg HS PO 01/10/25 22:00 01/25/25 21:59 40 MG Levothyroxine Sodium 125 mcg QAM@0600 PO 01/11/25 06:00 01/26/25 05:22 125 MCG Sodium Chloride 10 ml QSHIFT@10,22 IV 01/12/25 22:00 01/25/25 21:59 10 ML Dextrose 50 ml UD PRN IV 01/14/25 14:15 01/24/25 12:10 50 ML Fluconazole 100 mg POSTDI PRN PO 01/15/25 12:45 Cancel Ertapenem 0.5 gm/ Sodium Chloride 50 ml @ 100 mls/hr DAILY IV 01/19/25 10:00 01/26/25 10:00 100 MLS/HR Albumin Human 100 ml @ 100 mls/hr WD PRN IV 01/18/25 21:00 01/19/25 02:44 100 MLS/HR Guaifenesin/ Dextromethorphan 10 ml TID PO 01/20/25 14:00 01/26/25 11:40 10 ML Albuterol 2.5 mg Q4HPRN PRN NEB 01/20/25 16:00 01/26/25 11:30 2.5 MG Vancomycin HCl 0 ml @ 0 mls/hr PER PHARMACY IV 01/21/25 12:15 Fentanyl Citrate 250 ml @ 2.5 mls/hr Q24H IV 01/23/25 13:45 01/25/25 17:56 12.5 MLS/HR Norepinephrine Bitartrate 32 mg/ Sodium Chloride 250 ml @ 0.938 mls/ hr Q24H IV 01/23/25 14:45 01/25/25 21:57 5.625 MLS/HR Enteral Nutritional Formula 1,000 ml 30ML/HR GT 01/23/25 18:00 01/24/25 18:06 1,000 ML Pantoprazole Sodium 40 mg BID IV 01/23/25 22:00 01/26/25 11:39 40 MG Diagnostic Test (Pha) 1 strip Q6HP 01/24/25 00:00 01/26/25 11:40 1 STRIP Hydrocortisone Sodium Succinate 50 mg Q6HR IV 01/24/25 18:00 01/26/25 11:39 50 MG Sodium Chloride 1,000 ml @ 200 mls/hr Q5H IV 01/25/25 11:00 Cancel Amiodarone HCl 100 mg Q12HR PO 01/25/25 22:00 01/26/25 11:40 100 MG Midazolam HCl 100 ml @ 1 mls/hr Q24H IV 01/25/25 18:00 01/25/25 21:58 3 MLS/HR Examination Gen - no pallor, no scleral icterus Skin - Patients skin is warm and dry. HEENT - normocephalic, atraumatic, dry mucous membranes. Neck - supple, no lymphadenopathy Pulmonary - decreased breath sounds on the left side cardiovascular - regular S1,S2 heard GI - soft abdomen. Bowel sounds hypoactive. Neurological - sedated and on mechanical ventilation laboratory and microbiology Laboratory Tests 01/26/25 03:48 Test 01/26/25 03:48 Range/Units Serum Glucose 187 H 74-106 mg/dL Microbiology Date/Time Source Procedure Growth Status 01/24/25 10:06 Bronchial Washings Gram Stain - Final Resulted 01/24/25 10:06 Bronchial Washings Respiratory Culture - Preliminary Resulted 01/23/25 19:15 Blood Blood Culture - Preliminary NO GROWTH AFTER 48 HOURS OF INCUBATION. Resulted 01/23/25 09:15 Nose MRSA Screen - Final Complete 01/10/25 09:18 Voided Urine Urine Culture - Final Presumptive Sully albicans Yeast, not Sully albicans Complete Problem List/Assessment/Plan Problem List/Assessment/Plan Assessment Possible GI bleed Sepsis likely from osteomyelitis Acute on chronic systolic heart failure Thrombocytopenia Coagulopathy PAT on CKD likely due to VMN Plan - Protonix 40 mg IV b.i.d. - once the patient is hemodynamically stable, she may benefit from EGD - watch H&H, currently stable - feeding through NG tube, check residuals qshift Poor prognosis given the patient is critically sick with pneumonia/ARDS Plan discussed with Dr. Soto Plan discussed with: Other (ALBERTINA Mcclure) Dietary Evaluation Review Comments: Nutrition Recommendation 1) CCHO 60gm + renal standard diet 2) Nephro-santosh 1 tab daily 3) Lexx 1 pk daily 4) Monitor PO intake, lab values, weight trend, and I/O Expected Outcomes/Goals: To meet >75% estimated needs Wound to improve Fu 3-5 days CC Plasma Assessment Blood Product Administration S: [id number] MERLY THAKUR RESIDENT Jan 26, 2025 13:33
--- NOTE | 2025-01-26 19:29 | DVHPN2 ---
Assessment/Plan Assessment/Plan ICU note 64 F w ESRD on HD [place], NIDDM, HTN transferred from OSH for OM s/p trauma. Found to have significant PAD, s/p angio and stent. Seen with ams, increased WOB and hypotension, decision made with family to intubate. repeat ct chest. HD per renal. restart nepro. physical exam intubated, sedated on mech vent b/l coarse rhonchi, thick white sputum on ett s1 s2 rrr abdomen soft trace LE edema labs ekg imaging reviewed POCUS done today, IVC 1.9 with no excursion in vent. LLL hepatization, RLL b lines, no PLEF. assessment and plan acute hypoxic RF req mech vent acute metabolic encephalopathy ESRD on HD acute on chronic systolic HF aspiration PNA? vs fluid overload ARDS? right heart failure HFrEF 20% s/p AICD HLD R foot OM s/p I&D to bone NIDDM now w hypoglycemia hypothyroidism thrombocytopenic anemia CKD positive FOBT c/w mech vent c/w pressor, maintain SBP >90 HD per renal c/w sedation, maintain RAAS -1 to -2 somewhat euvolemic, will hold fluid trend lactate c/w invanz and vanc, ID recc appreciated pulm consult for bronch hold platelet tf hold insulin, if hypoglycemic d50 start TF reculture diet TF dvt ppx heparin condition critical prognosis poor full code critical care time 45 minutes excluding procedure Plan discussed with: Daughter My Orders Orders - ROBERTO VASQUEZ MD Procedure Category Date Status Time Chest Without Contrast CT 01/26/25 Logged 09:15 Date of Service: Jan 26, 2025 Billing Provider: ROBERTO VASQUEZ MD Common Visit Codes: [id number] CARE 30-74 MIN ROBERTO VASQUEZ MD Jan 26, 2025 19:29
[2025-01-26] MEDS: EPOETIN ALFA-EPBX 10,000 UNIT/1ML VIAL SC ONE (21:13)
--- NOTE | 2025-01-26 23:27 | DVHPN2 ---
Subjective [facility] DOS: 01/26/2025 Patient seen and examined at bedside. Sedated, intubated on mechanical ventilator. Overnight events reviewed. Reviewed: Care Plan Changes from previous H/P or p: No Changes Objective Vitals Vital Signs Date Time Temp Pulse Resp B/P (MAP) Pulse Ox O2 Delivery O2 Flow Rate FiO2 01/26/25 21:31 76 22 144/116 (125) 98 90 01/26/25 19:59 Mechanical Ventilator+ 01/26/25 19:15 97.5 207.5 Intake/Output Intake and Output 01/26/25 07:00 Intake Total 1072.388 ml Balance 1072.388 ml Intake Oral 120 ml IV Total 922.388 ml Tube Feeding 30 ml # Bowel Movements 1 Exam Gen.: Patient lying in bed in medical ICU. Sedated, intubated on mechanical ventilator. Head: Normocephalic, atraumatic. Eyes: PERRLA. Ears: Normal external anatomy. Throat: Endotracheal tube and orogastric tube in place. Neck: Supple, trachea midline. Chest: Transmitted breath sounds bilaterally. Decreased air entry bilaterally. No wheezing. Bibasilar crackles. Cardiovascular: Positive S1, positive S2. Regular rate and rhythm. Abdomen: Positive bowel sounds in all 4 quadrants. Soft, nontender, nondistended. : Lofton in place. Normal external genitalia. Rectal: Deferred. Skin: Warm, dry. Right foot osteomyelitis. Extremities: 2+ radial pulses bilaterally. No lower extremity edema. Neuro: Sedated. Medications Current Medications Medications Dose Ordered Sig/Seth Route Start Time Stop Time Status Last Admin Dose Admin Acetaminophen 325 mg Q4HP PRN PO 01/10/25 00:30 01/22/25 00:29 325 MG Ondansetron HCl 4 mg Q4HP PRN IV 01/10/25 00:30 01/20/25 16:19 4 MG Atorvastatin Calcium 40 mg HS PO 01/10/25 22:00 01/26/25 21:13 40 MG Levothyroxine Sodium 125 mcg QAM@0600 PO 01/11/25 06:00 01/26/25 05:22 125 MCG Sodium Chloride 10 ml QSHIFT@ IV 01/12/25 22:00 01/26/25 21:14 10 ML Dextrose 50 ml UD PRN IV 01/14/25 14:15 01/24/25 12:10 50 ML Fluconazole 100 mg POSTDI PRN PO 01/15/25 12:45 Cancel Ertapenem 0.5 gm/ Sodium Chloride 50 ml @ 100 mls/hr DAILY IV 01/19/25 10:00 01/26/25 10:00 100 MLS/HR Albumin Human 100 ml @ 100 mls/hr WD PRN IV 01/18/25 21:00 01/26/25 15:05 100 MLS/HR Guaifenesin/ Dextromethorphan 10 ml TID PO 01/20/25 14:00 01/26/25 21:13 10 ML Albuterol 2.5 mg Q4HPRN PRN NEB 01/20/25 16:00 01/26/25 11:30 2.5 MG Vancomycin HCl 0 ml @ 0 mls/hr PER PHARMACY IV 01/21/25 12:15 Fentanyl Citrate 250 ml @ 2.5 mls/hr Q24H IV 01/23/25 13:45 01/25/25 17:56 12.5 MLS/HR Norepinephrine Bitartrate 32 mg/ Sodium Chloride 250 ml @ 0.938 mls/ hr Q24H IV 01/23/25 14:45 01/25/25 21:57 5.625 MLS/HR Enteral Nutritional Formula 1,000 ml 30ML/HR GT 01/23/25 18:00 01/24/25 18:06 1,000 ML Pantoprazole Sodium 40 mg BID IV 01/23/25 22:00 01/26/25 21:14 40 MG Diagnostic Test (Pha) 1 strip Q6HP 01/24/25 00:00 01/26/25 11:40 1 STRIP Hydrocortisone Sodium Succinate 50 mg Q6HR IV 01/24/25 18:00 01/26/25 11:39 50 MG Sodium Chloride 1,000 ml @ 200 mls/hr Q5H IV 01/25/25 11:00 Cancel Amiodarone HCl 100 mg Q12HR PO 01/25/25 22:00 01/26/25 21:14 100 MG Midazolam HCl 100 ml @ 1 mls/hr Q24H IV 01/25/25 18:00 01/25/25 21:58 3 MLS/HR Laboratory Results Laboratory Tests 01/26/25 03:48 Chemistry Test 01/26/25 03:48 Calcium Level 8.2 mg/dL (8.7-10.4) L Magnesium Level 2.2 mg/dL (1.6-2.6) Phosphorus Level 5.0 mg/dL (2.4-5.1) Urinalysis Test 01/10/25 09:18 Urine Color Yellow (Yellow) Urine Clarity Turbid (Clear) H Urine pH 6.5 (5.0-9.0) Urine Specific [place] 1.019 (1.001-1.035) Urine Protein 2+ (Negative) H Urine Ketones Negative (Negative) Urine Blood Negative /uL (Negative) Urine Nitrite Negative (Negative) Urine Bilirubin Negative (Negative) Urine Urobilinogen Normal mg/dL (Negative) Urine Leukocyte Esterase Trace /uL (Negative) Urine RBC 7 /hpf (0 - 4) Urine Microscopic WBC 4 /HPF (0-5) Urine Squamous Epithelial Cells Few /hpf (<5) Urine Bacteria None seen /hpf (None Seen) Urine Yeast (Budding) Moderate /hpf (None Seen) Urine Glucose 1+ mg/dL (Normal) H Blood Gas Results Test 01/26/25 06:16 Arterial Blood pH 7.325 (7.350-7.450) FiO2 % 90.0 Microbiology Microbiology Date/Time Source Procedure Growth Status 01/24/25 10:06 Bronchial Washings Gram Stain - Final Resulted 01/24/25 10:06 Bronchial Washings Respiratory Culture - Preliminary Resulted 01/23/25 19:15 Blood Blood Culture - Preliminary NO GROWTH AFTER 72 HOURS OF INCUBATION. Resulted 01/23/25 09:15 Nose MRSA Screen - Final Complete 01/10/25 09:18 Voided Urine Urine Culture - Final Presumptive Sully albicans Yeast, not Sully albicans Complete Assessment/Plan Assessment/Plan Impression: Acute hypoxic respiratory failure On mechanical ventilator Acute CHF exacerbation End-stage renal disease, on hemodialysis Osteomyelitis Overweight Events: Remains on vent support On AC mode; RR 22, VT 400, PEEP 10, FiO2 90% Remains on high PEEP, FiO2 requirements. ABG reviewed, slight acidemia. Sedated on Versed, Fentanyl drip Pressors for hemodynamic support Levophed 20 mcg/min Titrate to keep mean arterial pressure greater than 65 mmHg. Increased pressor requirements Continue bronchodilators. Continue antibiotics. Continue IV steroids Remains on high PEEP, FiO2 requirements. Taper PEEP and FiO2 as tolerated Hemodialysis per Nephrology Nephrology recs appreciated Monitor renal function Monitor electrolytes. Supplement as necessary. Monitor ins and outs. Labs and imaging reviewed. Rest of plan as noted below. Plan: s/p intubation on mechanical ventilator. On AC mode; RR 22, VT 400, PEEP 10, FiO2 90% S/p bronchoscopy on 11/24/24 - Preliminary results from Bronchial washings show no growth. Titrate FIO2 to keep O2 saturation above 90%. VAP bundle. Daily ABG and CXR while intubated Sedate for ventilator synchrony Continue bronchodilators. Continue antibiotics. Follow up cultures. IV steroids Pressors for hemodynamic support Titrate to keep mean arterial pressure greater than 65 mmHg. Wound care. Monitor H&H. Hemodialysis per Nephrology Monitor renal function Monitor electrolytes. Supplement as necessary. Monitor ins and outs. Maintain euvolemia. GI prophylaxis. DVT prophylaxis. Prognosis: Poor given patient's multiple co-morbidities. Condition: Critical Rest of plan per hospitalist and other consultants. A total of 35 minutes of critical care time was spent reviewing the patient record, examining the patient, making a diagnostic and therapeutic plan, discussing this plan with the medical personnel, following up on diagnostic studies and following the patient for clinical stability excluding any and all procedures. At least 50% of this time was spent in direct, [id number] contact. Thank you, Dr. Bowie, for allowing me to participate in this patient's care. Further recommendations will depend on the patient's clinical course. Please do not hesitate to contact me if you have any questions or concerns. This medical document was created using an electronic medical record system with [employer] dictation system. Although these documentations are being carefully reviewed, there may still be some phonetic and typographical changes. The errors are purely typographical, due to imperfection on the software program, and do not reflect any compromise in the patient's medical care. Plan discussed with: Other (RN) Visit Coding Pulmonary Billing Provider: ALCON GUTHRIE MD Date of Service if different f: Jan 26, 2025 Common Visit Codes: [id number] INP/OBS CARE(HIGH), [id number] CARE 30-74 MIN ALCON GUTHRIE MD Jan 26, 2025 23:27
[2025-01-27] VITALS (114 sets, daily range): BP systolic 82–154; BP diastolic 12–62; PULSE 66–88; RESP 12–25; TEMP 96.1–99.5; O2SAT 88–100
[2025-01-27 04:20] LABS: Hematocrit 30.1 % (36.0-46.0); Hemoglobin 10.1 g/dL (12.2-16.2); Mean Corpuscular Hemoglobin 30.9 pg (28.0-32.0); Mean Corpuscular Volume 91.9 fL (80.0-100.0)
[2025-01-27 04:21] LABS: Chloride 102 mmol/L (98-107); Potassium 4.6 mmol/L (3.5-5.1); Sodium 144 mmol/L (136-145)
[2025-01-27 04:22] LABS: Anion Gap 13 (5-15); Carbon Dioxide 29 mmol/L (20-31)
[2025-01-27 04:27] LABS: BUN/Creatinine Ratio 8.6 (10.0-20.0)
[2025-01-27 04:28] LABS: Blood Urea Nitrogen 32 mg/dL (9-23); Calcium 7.7 mg/dL (8.7-10.4); Glucose 179 mg/dL (74-106); Magnesium 2.0 mg/dL (1.6-2.6)
[2025-01-27 04:48] LABS: Nucleated Red Blood Cells % 3.0 %; Total Cells Counted 100.0 (100)
[2025-01-27 06:40] LABS: Base Excess 1.4 mmol/L (-2.0-3.0)
--- NOTE | 2025-01-27 11:21 | DVHPN2 ---
Subjective Patient chemically sedated Reviewed: Care Plan Changes from previous H/P or p: No Changes Objective Vitals Vital Signs Date Time Temp Pulse Resp B/P (MAP) Pulse Ox O2 Delivery O2 Flow Rate FiO2 01/27/25 09:56 73 22 121/30 (60) 97 90 01/27/25 05:55 Mechanical Ventilator+ 01/27/25 04:15 96.8 206.2 Intake/Output Intake and Output 01/27/25 07:00 Intake Total 543.571 ml Output Total 0 ml Balance 543.571 ml Intake Oral 240 ml IV Total 188.571 ml Tube Feeding 115 ml Output Urine Total 0 ml General Appearance: Alert, Oriented X3, Cooperative, mild distress HEENT: Atraumatic, PERRLA Lungs: Clear to auscultation, Normal air movement Cardiovascular: Normal S1, Normal S2 Abdomen: Normal bowel sounds, Soft, No tenderness, No hepatospenomegaly Musculoskeletal: Other (Unable to assess) Skin: Dry, Intact Psych/Mental Status: Other (Unable to assess) Medications Current Medications Medications Dose Ordered Sig/Seth Route Start Time Stop Time Status Last Admin Dose Admin Acetaminophen 325 mg Q4HP PRN PO 01/10/25 00:30 01/22/25 00:29 325 MG Ondansetron HCl 4 mg Q4HP PRN IV 01/10/25 00:30 01/20/25 16:19 4 MG Atorvastatin Calcium 40 mg HS PO 01/10/25 22:00 01/26/25 21:13 40 MG Levothyroxine Sodium 125 mcg QAM@0600 PO 01/11/25 06:00 01/27/25 05:01 125 MCG Sodium Chloride 10 ml QSHIFT@ IV 01/12/25 22:00 01/27/25 10:00 10 ML Dextrose 50 ml UD PRN IV 01/14/25 14:15 01/24/25 12:10 50 ML Fluconazole 100 mg POSTDI PRN PO 01/15/25 12:45 Cancel Ertapenem 0.5 gm/ Sodium Chloride 50 ml @ 100 mls/hr DAILY IV 01/19/25 10:00 01/27/25 09:56 100 MLS/HR Albumin Human 100 ml @ 100 mls/hr WD PRN IV 01/18/25 21:00 01/26/25 15:05 100 MLS/HR Guaifenesin/ Dextromethorphan 10 ml TID PO 01/20/25 14:00 01/27/25 05:01 10 ML Albuterol 2.5 mg Q4HPRN PRN NEB 01/20/25 16:00 01/26/25 11:30 2.5 MG Vancomycin HCl 0 ml @ 0 mls/hr PER PHARMACY IV 01/21/25 12:15 Fentanyl Citrate 250 ml @ 2.5 mls/hr Q24H IV 01/23/25 13:45 01/26/25 23:46 2.5 MLS/HR Norepinephrine Bitartrate 32 mg/ Sodium Chloride 250 ml @ 0.938 mls/ hr Q24H IV 01/23/25 14:45 01/25/25 21:57 5.625 MLS/HR Enteral Nutritional Formula 1,000 ml 30ML/HR GT 01/23/25 18:00 01/26/25 23:26 1,000 ML Pantoprazole Sodium 40 mg BID IV 01/23/25 22:00 01/27/25 10:00 40 MG Diagnostic Test (Pha) 1 strip Q6HP 01/24/25 00:00 01/27/25 05:57 1 STRIP Hydrocortisone Sodium Succinate 50 mg Q6HR IV 01/24/25 18:00 01/27/25 10:00 50 MG Sodium Chloride 1,000 ml @ 200 mls/hr Q5H IV 01/25/25 11:00 Cancel Amiodarone HCl 100 mg Q12HR PO 01/25/25 22:00 01/27/25 10:00 100 MG Midazolam HCl 100 ml @ 1 mls/hr Q24H IV 01/25/25 18:00 01/25/25 21:58 3 MLS/HR Laboratory Results Laboratory Tests 01/27/25 03:51 Chemistry Test 01/27/25 03:51 Calcium Level 7.7 mg/dL (8.7-10.4) L Magnesium Level 2.0 mg/dL (1.6-2.6) Phosphorus Level 4.6 mg/dL (2.4-5.1) Urinalysis Test 01/10/25 09:18 Urine Color Yellow (Yellow) Urine Clarity Turbid (Clear) H Urine pH 6.5 (5.0-9.0) Urine Specific [place] 1.019 (1.001-1.035) Urine Protein 2+ (Negative) H Urine Ketones Negative (Negative) Urine Blood Negative /uL (Negative) Urine Nitrite Negative (Negative) Urine Bilirubin Negative (Negative) Urine Urobilinogen Normal mg/dL (Negative) Urine Leukocyte Esterase Trace /uL (Negative) Urine RBC 7 /hpf (0 - 4) Urine Microscopic WBC 4 /HPF (0-5) Urine Squamous Epithelial Cells Few /hpf (<5) Urine Bacteria None seen /hpf (None Seen) Urine Yeast (Budding) Moderate /hpf (None Seen) Urine Glucose 1+ mg/dL (Normal) H Blood Gas Results Test 01/27/25 06:34 Arterial Blood pH 7.370 (7.350-7.450) FiO2 % 90.0 Microbiology Microbiology Date/Time Source Procedure Growth Status 01/24/25 10:06 Bronchial Washings Gram Stain - Final Resulted 01/24/25 10:06 Bronchial Washings Respiratory Culture - Preliminary Resulted 01/23/25 19:15 Blood Blood Culture - Preliminary NO GROWTH AFTER 72 HOURS OF INCUBATION. Resulted 01/23/25 09:15 Nose MRSA Screen - Final Complete 01/10/25 09:18 Voided Urine Urine Culture - Final Presumptive Sully albicans Yeast, not Sully albicans Complete Labs and/or images reviewed: Labs reviewed by me, Image(s) reviewed by me Assessment/Plan Assessment/Plan Impression: -septic shock -right foot osteomyelitis -peripheral arterial disease -acute hypoxic respiratory failure -acute on chronic systolic and diastolic heart failure -end-stage renal disease with hemodialysis -diabetes mellitus Plan: -continue current ventilator settings. Wean FiO2 to keep saturation greater than 92% -pulmonology consultation: Recommendations reviewed. Patient is status post bronchoscopy -continue current antibiotic therapy with Invanz, vancomycin -nephrology consultation: Recommendations reviewed. Patient had hemodialysis yesterday -regular insulin sliding scale -long discussion made with the patient's daughters who were bedside. Given patient's cardiac, renal, pulmonary status, patient will need to be stabilized prior to re-evaluating for possible revascularization versus repeat I&D versus right lower extremity BKA Critical care time spent with patient discussing and formulating plan of care: 90 minutes. This does not include time spent performing procedures. This medical document was created using an electronic medical record system with [employer] dictation system. Although this document has been carefully reviewed, there may still be some phonetic and typographical errors. These areas are purely typographical due to imperfections of the software programs, and do not reflect any compromise in the patient's medical care. Plan discussed with: Patient, Daughter, Other (RN, ) My Orders Orders - TERRY REDD NP Procedure Category Date Status Time Complete Blood Count LAB 01/28/25 Verified 05:00 Complete Blood Count LAB 01/29/25 Verified 05:00 Complete Blood Count LAB 01/30/25 Verified 05:00 Comprehensive LAB 01/28/25 Verified Metabolic Panel 05:00 Comprehensive LAB 01/29/25 Verified Metabolic Panel 05:00 Comprehensive LAB 01/30/25 Verified Metabolic Panel 05:00 Chest Portable XY 01/28/25 Transmitted 04:00 Date of Service: Jan 27, 2025 Billing Provider: TERRY REDD NP Common Visit Codes: [id number] CARE 30-74 MIN, [id number] CARE-EACH +30MIN TERRY REDD NP Jan 27, 2025 11:21
--- NOTE | 2025-01-27 17:28 | DVHPN2 ---
Progress Note - Dictate Date Seen: Jan 27, 2025 Medical Necessity Reason Pt with a Central, PICC or Fol: Yes The following are medically ne: Central Line, Lofton Catheter Subjective Still intubated On 90% FiO2, peep of 10 vital signs Vital Sign Date Time Temp Pulse Resp B/P (MAP) Pulse Ox O2 Delivery O2 Flow Rate FiO2 01/27/25 16:05 85 22 124/36 (65) 90 100 01/27/25 14:00 Mechanical Ventilator+ 01/27/25 12:00 97.5 97.5 Total Intake and Output 01/26/25 01/26/25 01/27/25 15:00 23:00 07:00 Intake Total 84.816 ml 64.690 ml 400.315 ml Output Total 0 ml Balance 84.816 ml 64.690 ml 400.315 ml medications Current Medications Medications Dose Ordered Sig/Seth Route Start Time Stop Time Status Last Admin Dose Admin Acetaminophen 325 mg Q4HP PRN PO 01/10/25 00:30 01/22/25 00:29 325 MG Ondansetron HCl 4 mg Q4HP PRN IV 01/10/25 00:30 01/20/25 16:19 4 MG Atorvastatin Calcium 40 mg HS PO 01/10/25 22:00 01/26/25 21:13 40 MG Levothyroxine Sodium 125 mcg QAM@0600 PO 01/11/25 06:00 01/27/25 05:01 125 MCG Sodium Chloride 10 ml QSHIFT@10,22 IV 01/12/25 22:00 01/27/25 10:00 10 ML Dextrose 50 ml UD PRN IV 01/14/25 14:15 01/24/25 12:10 50 ML Fluconazole 100 mg POSTDI PRN PO 01/15/25 12:45 Cancel Ertapenem 0.5 gm/ Sodium Chloride 50 ml @ 100 mls/hr DAILY IV 01/19/25 10:00 01/27/25 09:56 100 MLS/HR Albumin Human 100 ml @ 100 mls/hr WD PRN IV 01/18/25 21:00 01/26/25 15:05 100 MLS/HR Guaifenesin/ Dextromethorphan 10 ml TID PO 01/20/25 14:00 01/27/25 05:01 10 ML Albuterol 2.5 mg Q4HPRN PRN NEB 01/20/25 16:00 01/26/25 11:30 2.5 MG Vancomycin HCl 0 ml @ 0 mls/hr PER PHARMACY IV 01/21/25 12:15 Fentanyl Citrate 250 ml @ 2.5 mls/hr Q24H IV 01/23/25 13:45 01/26/25 23:46 2.5 MLS/HR Norepinephrine Bitartrate 32 mg/ Sodium Chloride 250 ml @ 0.938 mls/ hr Q24H IV 01/23/25 14:45 01/25/25 21:57 5.625 MLS/HR Enteral Nutritional Formula 1,000 ml 30ML/HR GT 01/23/25 18:00 01/26/25 23:26 1,000 ML Pantoprazole Sodium 40 mg BID IV 01/23/25 22:00 01/27/25 10:00 40 MG Diagnostic Test (Pha) 1 strip Q6HP 01/24/25 00:00 01/27/25 14:30 1 STRIP Hydrocortisone Sodium Succinate 50 mg Q6HR IV 01/24/25 18:00 01/27/25 10:00 50 MG Sodium Chloride 1,000 ml @ 200 mls/hr Q5H IV 01/25/25 11:00 Cancel Amiodarone HCl 100 mg Q12HR PO 01/25/25 22:00 01/27/25 10:00 100 MG Midazolam HCl 100 ml @ 1 mls/hr Q24H IV 01/25/25 18:00 01/25/25 21:58 3 MLS/HR objective intubated and sedated Pulmonary: Diminished breath sounds at bases Cardiovascular S1-S2, no S3 or S4 Abdomen: Bowel sounds positive, soft no rebound tenderness Skin: No rash Neurological: intubated laboratory and microbiology Laboratory Tests 01/27/25 03:51 Test 01/27/25 03:51 Range/Units Serum Glucose 179 H 74-106 mg/dL Problem List ESRD on HD Acute hypoxic respiratory failure Shock Right foot osteomyelitis Pneumonia DM hypothyroidism Leukocytosis Anemia Hyperphosphatemia Secondary hyperparathyroidism Thrombocytopenia Assessment/Plan HD on MWF schedule vent management as per pulmonary continue IV abx Monitor H/H closely and transfuse prn Scheduled for CT of the chest without contrast Prognosis guarded Dietary Evaluation Review Comments: Nutrition Recommendation 1) CCHO 60gm + renal standard diet 2) Nephro-santosh 1 tab daily 3) Lexx 1 pk daily 4) Monitor PO intake, lab values, weight trend, and I/O Expected Outcomes/Goals: To meet >75% estimated needs Wound to improve Fu 3-5 days Plan discussed with: Other CC Plasma Assessment Blood Product Administration S: [id number] RENETTA LORENZ MD Jan 27, 2025 17:28
[2025-01-27] MEDS: VANCOMYCIN 500mg/100mL 100 ML IV ONE (18:31)
--- NOTE | 2025-01-27 22:53 | DVHPN2 ---
Subjective [facility] DOS: 01/27/2025 Patient seen and examined at bedside. Sedated, intubated on mechanical ventilator. Overnight events reviewed. Reviewed: Care Plan Changes from previous H/P or p: No Changes Objective Vitals Vital Signs Date Time Temp Pulse Resp B/P (MAP) Pulse Ox O2 Delivery O2 Flow Rate FiO2 01/27/25 22:45 97.5 68 22 116/22 (53) 98 207.5 01/27/25 21:59 85 01/27/25 18:00 Mechanical Ventilator+ Intake/Output Intake and Output 01/27/25 06:59 Intake Total 557.759 ml Output Total 0 ml Balance 557.759 ml Intake Oral 240 ml IV Total 202.759 ml Tube Feeding 115 ml Output Urine Total 0 ml Exam Gen.: Patient lying in bed in medical ICU. Sedated, intubated on mechanical ventilator. Head: Normocephalic, atraumatic. Eyes: PERRLA. Ears: Normal external anatomy. Throat: Endotracheal tube and orogastric tube in place. Neck: Supple, trachea midline. Chest: Transmitted breath sounds bilaterally. Decreased air entry bilaterally. No wheezing. Bibasilar crackles. Cardiovascular: Positive S1, positive S2. Regular rate and rhythm. Abdomen: Positive bowel sounds in all 4 quadrants. Soft, nontender, nondistended. : [place] in place. Normal external genitalia. Rectal: Deferred. Skin: Warm, dry. Right foot osteomyelitis. Extremities: 2+ radial pulses bilaterally. No lower extremity edema. Neuro: Sedated. General Appearance: Alert, Oriented X3, Cooperative, mild distress HEENT: Atraumatic, PERRLA Lungs: Clear to auscultation, Normal air movement Cardiovascular: Normal S1, Normal S2 Abdomen: Normal bowel sounds, Soft, No tenderness, No hepatospenomegaly Musculoskeletal: Other (Unable to assess) Skin: Dry, Intact Psych/Mental Status: Other (Unable to assess) Medications Current Medications Medications Dose Ordered Sig/Seth Route Start Time Stop Time Status Last Admin Dose Admin Acetaminophen 325 mg Q4HP PRN PO 01/10/25 00:30 01/22/25 00:29 325 MG Ondansetron HCl 4 mg Q4HP PRN IV 01/10/25 00:30 01/20/25 16:19 4 MG Atorvastatin Calcium 40 mg HS PO 01/10/25 22:00 01/27/25 22:14 40 MG Levothyroxine Sodium 125 mcg QAM@0600 PO 01/11/25 06:00 01/27/25 05:01 125 MCG Sodium Chloride 10 ml QSHIFT@10,22 IV 01/12/25 22:00 01/27/25 22:29 10 ML Dextrose 50 ml UD PRN IV 01/14/25 14:15 01/24/25 12:10 50 ML Fluconazole 100 mg POSTDI PRN PO 01/15/25 12:45 Cancel Ertapenem 0.5 gm/ Sodium Chloride 50 ml @ 100 mls/hr DAILY IV 01/19/25 10:00 01/27/25 09:56 100 MLS/HR Albumin Human 100 ml @ 100 mls/hr WD PRN IV 01/18/25 21:00 01/26/25 15:05 100 MLS/HR Guaifenesin/ Dextromethorphan 10 ml TID PO 01/20/25 14:00 01/27/25 22:12 10 ML Albuterol 2.5 mg Q4HPRN PRN NEB 01/20/25 16:00 01/26/25 11:30 2.5 MG Vancomycin HCl 0 ml @ 0 mls/hr PER PHARMACY IV 01/21/25 12:15 Fentanyl Citrate 250 ml @ 2.5 mls/hr Q24H IV 01/23/25 13:45 01/26/25 23:46 2.5 MLS/HR Norepinephrine Bitartrate 32 mg/ Sodium Chloride 250 ml @ 0.938 mls/ hr Q24H IV 01/23/25 14:45 01/25/25 21:57 5.625 MLS/HR Enteral Nutritional Formula 1,000 ml 30ML/HR GT 01/23/25 18:00 01/26/25 23:26 1,000 ML Pantoprazole Sodium 40 mg BID IV 01/23/25 22:00 01/27/25 22:13 40 MG Diagnostic Test (Pha) 1 strip Q6HP 01/24/25 00:00 01/27/25 18:31 1 STRIP Hydrocortisone Sodium Succinate 50 mg Q6HR IV 01/24/25 18:00 01/27/25 18:30 50 MG Sodium Chloride 1,000 ml @ 200 mls/hr Q5H IV 01/25/25 11:00 Cancel Amiodarone HCl 100 mg Q12HR PO 01/25/25 22:00 01/27/25 22:13 100 MG Midazolam HCl 100 ml @ 1 mls/hr Q24H IV 01/25/25 18:00 01/25/25 21:58 3 MLS/HR Laboratory Results Laboratory Tests 01/27/25 03:51 Chemistry Test 01/27/25 03:51 Calcium Level 7.7 mg/dL (8.7-10.4) L Magnesium Level 2.0 mg/dL (1.6-2.6) Phosphorus Level 4.6 mg/dL (2.4-5.1) Urinalysis Test 01/10/25 09:18 Urine Color Yellow (Yellow) Urine Clarity Turbid (Clear) H Urine pH 6.5 (5.0-9.0) Urine Specific [place] 1.019 (1.001-1.035) Urine Protein 2+ (Negative) H Urine Ketones Negative (Negative) Urine Blood Negative /uL (Negative) Urine Nitrite Negative (Negative) Urine Bilirubin Negative (Negative) Urine Urobilinogen Normal mg/dL (Negative) Urine Leukocyte Esterase Trace /uL (Negative) Urine RBC 7 /hpf (0 - 4) Urine Microscopic WBC 4 /HPF (0-5) Urine Squamous Epithelial Cells Few /hpf (<5) Urine Bacteria None seen /hpf (None Seen) Urine Yeast (Budding) Moderate /hpf (None Seen) Urine Glucose 1+ mg/dL (Normal) H Blood Gas Results Test 01/27/25 06:34 Arterial Blood pH 7.370 (7.350-7.450) FiO2 % 90.0 Microbiology Microbiology Date/Time Source Procedure Growth Status 01/24/25 10:06 Bronchial Washings Gram Stain - Final Complete 01/24/25 10:06 Bronchial Washings Respiratory Culture - Final Complete 01/23/25 19:15 Blood Blood Culture - Preliminary NO GROWTH AFTER 72 HOURS OF INCUBATION. Resulted 01/23/25 09:15 Nose MRSA Screen - Final Complete 01/10/25 09:18 Voided Urine Urine Culture - Final Presumptive Sully albicans Yeast, not Sully albicans Complete Assessment/Plan Assessment/Plan Impression: Acute hypoxic respiratory failure On mechanical ventilator Acute CHF exacerbation End-stage renal disease, on hemodialysis Osteomyelitis Overweight Events: Remains on vent support On AC mode; RR 22, VT 400, PEEP 10, FiO2 100% Remains on high PEEP, FiO2 requirements. Patient noted to desaturate with turns. Will increase PEEP to 12 cmH2O. ABG reviewed, compensated. Pressors for hemodynamic support Levophed 10 mcg/min Titrate to keep mean arterial pressure greater than 65 mmHg. Improved pressor requirements Continue bronchodilators. Continue antibiotics. Continue IV stress dose steroids Remains on high PEEP, FiO2 requirements. Taper PEEP and FiO2 as tolerated Hemodialysis per Nephrology Nephrology recs appreciated Monitor renal function Monitor electrolytes. Supplement as necessary. Monitor ins and outs. Labs and imaging reviewed. Rest of plan as noted below. Plan: s/p intubation on mechanical ventilator. On AC mode; RR 22, VT 400, PEEP 10-->12, FiO2 100% S/p bronchoscopy on 11/24/24 - Preliminary results from Bronchial washings show no growth. Titrate FIO2 to keep O2 saturation above 90%. VAP bundle. Daily ABG and CXR while intubated Sedate for ventilator synchrony Continue bronchodilators. Continue antibiotics. Follow up cultures. IV steroids Pressors for hemodynamic support Titrate to keep mean arterial pressure greater than 65 mmHg. Wound care. Monitor H&H. Hemodialysis per Nephrology Monitor renal function Monitor electrolytes. Supplement as necessary. Monitor ins and outs. Maintain euvolemia. GI prophylaxis. DVT prophylaxis. Prognosis: Poor given patient's multiple co-morbidities. Condition: Critical Rest of plan per hospitalist and other consultants. A total of 35 minutes of critical care time was spent reviewing the patient record, examining the patient, making a diagnostic and therapeutic plan, discussing this plan with the medical personnel, following up on diagnostic studies and following the patient for clinical stability excluding any and all procedures. At least 50% of this time was spent in direct, fsex-br-fizl contact. Thank you, Dr. Bowie, for allowing me to participate in this patient's care. Further recommendations will depend on the patient's clinical course. Please do not hesitate to contact me if you have any questions or concerns. This medical document was created using an electronic medical record system with [employer] system. Although these documentations are being carefully reviewed, there may still be some phonetic and typographical changes. The errors are purely typographical, due to imperfection on the software program, and do not reflect any compromise in the patient's medical care. Plan discussed with: Other (RN) My Orders Orders - GUTHRIE,ALCON M MD Procedure Category Date Status Time Ventilator Orders RT 01/27/25 Transmitted 18:00 Chest Portable XY 01/28/25 Logged 04:00 Visit Coding Pulmonary Billing Provider: ALCON GUTHRIE MD Date of Service if different f: Jan 27, 2025 Common Visit Codes: 66719-[id number] INP/OBS CARE(HIGH), 14331-CYBUIBAN CARE 30-74 MIN ALCON GUTHRIE MD Jan 27, 2025 22:53
--- NOTE | 2025-01-27 23:53 | DVHPN2 ---
Consult Progress Note Date Seen: Jan 26, 2025 Subjective Patient reports: Feels better (last fever 01/21, remains hypoxic fio2 80%. levophed 8mcg) Objective vital signs Vital Sign Date Time Temp Pulse Resp B/P (MAP) Pulse Ox O2 Delivery O2 Flow Rate FiO2 01/27/25 22:45 97.5 68 22 116/22 (53) 98 207.5 01/27/25 22:00 Mechanical Ventilator+ 85 85 Total Intake and Output 01/26/25 01/26/25 01/27/25 15:00 23:00 07:00 Intake Total 84.816 ml 64.690 ml 400.315 ml Output Total 0 ml Balance 84.816 ml 64.690 ml 400.315 ml medications Current Medications Medications Dose Ordered Sig/Seth Route Start Time Stop Time Status Last Admin Dose Admin Acetaminophen 325 mg Q4HP PRN PO 01/10/25 00:30 01/22/25 00:29 325 MG Ondansetron HCl 4 mg Q4HP PRN IV 01/10/25 00:30 01/20/25 16:19 4 MG Atorvastatin Calcium 40 mg HS PO 01/10/25 22:00 01/27/25 22:14 40 MG Levothyroxine Sodium 125 mcg QAM@0600 PO 01/11/25 06:00 01/27/25 05:01 125 MCG Sodium Chloride 10 ml QSHIFT@22 IV 01/12/25 22:00 01/27/25 22:29 10 ML Dextrose 50 ml UD PRN IV 01/14/25 14:15 01/24/25 12:10 50 ML Fluconazole 100 mg POSTDI PRN PO 01/15/25 12:45 Cancel Ertapenem 0.5 gm/ Sodium Chloride 50 ml @ 100 mls/hr DAILY IV 01/19/25 10:00 01/27/25 09:56 100 MLS/HR Albumin Human 100 ml @ 100 mls/hr WD PRN IV 01/18/25 21:00 01/26/25 15:05 100 MLS/HR Guaifenesin/ Dextromethorphan 10 ml TID PO 01/20/25 14:00 01/27/25 22:12 10 ML Albuterol 2.5 mg Q4HPRN PRN NEB 01/20/25 16:00 01/26/25 11:30 2.5 MG Vancomycin HCl 0 ml @ 0 mls/hr PER PHARMACY IV 01/21/25 12:15 Fentanyl Citrate 250 ml @ 2.5 mls/hr Q24H IV 01/23/25 13:45 01/26/25 23:46 2.5 MLS/HR Norepinephrine Bitartrate 32 mg/ Sodium Chloride 250 ml @ 0.938 mls/ hr Q24H IV 01/23/25 14:45 01/25/25 21:57 5.625 MLS/HR Enteral Nutritional Formula 1,000 ml 30ML/HR GT 01/23/25 18:00 01/26/25 23:26 1,000 ML Pantoprazole Sodium 40 mg BID IV 01/23/25 22:00 01/27/25 22:13 40 MG Diagnostic Test (Pha) 1 strip Q6HP 01/24/25 00:00 01/27/25 18:31 1 STRIP Hydrocortisone Sodium Succinate 50 mg Q6HR IV 01/24/25 18:00 01/27/25 18:30 50 MG Sodium Chloride 1,000 ml @ 200 mls/hr Q5H IV 01/25/25 11:00 Cancel Amiodarone HCl 100 mg Q12HR PO 01/25/25 22:00 01/27/25 22:13 100 MG Midazolam HCl 100 ml @ 1 mls/hr Q24H IV 01/25/25 18:00 01/25/25 21:58 3 MLS/HR laboratory and microbiology Laboratory Tests 01/27/25 03:51 Test 01/27/25 03:51 Range/Units Serum Glucose 179 H 74-106 mg/dL Problem List/Assessment/Plan Problem List/Assessment/Plan preliminary blood and bal cultures are NGTD leukocytosis stable hb stable persistently hypoxic cxr w/ improved Improved opacity right upper lobe. Plan: continue vancomycin and ertapenem for now will fu on BAL and blood cultures diuresis via dialysis as tolerated defer to surgery team on postoperative wound mananagement anticipate 4 weeks of ertapenem for now Plan discussed with: Patient Dietary Evaluation Review Comments: Nutrition Recommendation 1) CCHO 60gm + renal standard diet 2) Nephro-santosh 1 tab daily 3) Lexx 1 pk daily 4) Monitor PO intake, lab values, weight trend, and I/O Expected Outcomes/Goals: To meet >75% estimated needs Wound to improve Fu 3-5 days CC Plasma Assessment Blood Product Administration S: [id number] CONY TAYLOR MD Jan 27, 2025 23:53
--- NOTE | 2025-01-27 23:53 | DVHPN2 ---
Progress Note - Dictate Date Seen: Jan 27, 2025 (Late entryPatient seen at 10:00 a.m.) Medical Necessity Reason Pt with a Central, PICC or Fol: Yes The following are medically ne: Central Line, [place] Catheter Subjective Patient seen at bedside in [facility] She is intubated sedated Patient has CHF exacerbation respiratory failure, She got dialyzed yesterday with removal of 2 L of fluid She has high oxygen requirements of 95% FiO2 with 12 peep Patient was still on low-dose Levophed at six mics per hour No nausea vomiting abdominal pain or GI bleeding reported ; hemoglobin stable at 10 She has mild elevation of ALT of 273 and alk phos of 191 She did have some moderate gastric residuals and currently she is going at a goal rate of 30 mL/hour vital signs Vital Sign Date Time Temp Pulse Resp B/P (MAP) Pulse Ox O2 Delivery O2 Flow Rate FiO2 01/27/25 22:45 97.5 68 22 116/22 (53) 98 207.5 01/27/25 22:00 Mechanical Ventilator+ 85 85 Total Intake and Output 01/26/25 01/26/25 01/27/25 15:00 23:00 07:00 Intake Total 84.816 ml 64.690 ml 400.315 ml Output Total 0 ml Balance 84.816 ml 64.690 ml 400.315 ml medications Current Medications Medications Dose Ordered Sig/Seth Route Start Time Stop Time Status Last Admin Dose Admin Acetaminophen 325 mg Q4HP PRN PO 01/10/25 00:30 01/22/25 00:29 325 MG Ondansetron HCl 4 mg Q4HP PRN IV 01/10/25 00:30 01/20/25 16:19 4 MG Atorvastatin Calcium 40 mg HS PO 01/10/25 22:00 01/27/25 22:14 40 MG Levothyroxine Sodium 125 mcg QAM@0600 PO 01/11/25 06:00 01/27/25 05:01 125 MCG Sodium Chloride 10 ml QSHIFT@ IV 01/12/25 22:00 01/27/25 22:29 10 ML Dextrose 50 ml UD PRN IV 01/14/25 14:15 01/24/25 12:10 50 ML Fluconazole 100 mg POSTDI PRN PO 01/15/25 12:45 Cancel Ertapenem 0.5 gm/ Sodium Chloride 50 ml @ 100 mls/hr DAILY IV 01/19/25 10:00 01/27/25 09:56 100 MLS/HR Albumin Human 100 ml @ 100 mls/hr WD PRN IV 01/18/25 21:00 01/26/25 15:05 100 MLS/HR Guaifenesin/ Dextromethorphan 10 ml TID PO 01/20/25 14:00 01/27/25 22:12 10 ML Albuterol 2.5 mg Q4HPRN PRN NEB 01/20/25 16:00 01/26/25 11:30 2.5 MG Vancomycin HCl 0 ml @ 0 mls/hr PER PHARMACY IV 01/21/25 12:15 Fentanyl Citrate 250 ml @ 2.5 mls/hr Q24H IV 01/23/25 13:45 01/26/25 23:46 2.5 MLS/HR Norepinephrine Bitartrate 32 mg/ Sodium Chloride 250 ml @ 0.938 mls/ hr Q24H IV 01/23/25 14:45 01/25/25 21:57 5.625 MLS/HR Enteral Nutritional Formula 1,000 ml 30ML/HR GT 01/23/25 18:00 01/26/25 23:26 1,000 ML Pantoprazole Sodium 40 mg BID IV 01/23/25 22:00 01/27/25 22:13 40 MG Diagnostic Test (Pha) 1 strip Q6HP 01/24/25 00:00 01/27/25 18:31 1 STRIP Hydrocortisone Sodium Succinate 50 mg Q6HR IV 01/24/25 18:00 01/27/25 18:30 50 MG Sodium Chloride 1,000 ml @ 200 mls/hr Q5H IV 01/25/25 11:00 Cancel Amiodarone HCl 100 mg Q12HR PO 01/25/25 22:00 01/27/25 22:13 100 MG Midazolam HCl 100 ml @ 1 mls/hr Q24H IV 01/25/25 18:00 01/25/25 21:58 3 MLS/HR objective General Appearance: Alert, Oriented X3, intubated sedated HEENT: Atraumatic, PERRLA Lungs: Clear to auscultation, Normal air movement Cardiovascular: Normal S1, Normal S2 Abdomen: Normal bowel sounds, Soft, No tenderness, No hepatospenomegaly Musculoskeletal: No c/c/e laboratory and microbiology Laboratory Tests 01/27/25 03:51 Test 01/27/25 03:51 Range/Units Serum Glucose 179 H 74-106 mg/dL Problems(with codes): (1) Elevated liver enzymes (2) N&V (nausea and vomiting) (3) Toe fracture, right (4) Toe osteomyelitis, right Prognosis Plan Patient has had 2 units of PRBC and 7 units of platelets Hemoglobin is now stable there was no active bleeding Hepatitis profile is negative, check DIEGO Continue supportive care from GI point of view Protonix 40 mg IV Q 24 hours Continue tube feedings as tolerated Dietary Evaluation Review Comments: Nutrition Recommendation 1) CCHO 60gm + renal standard diet 2) Nephro-santosh 1 tab daily 3) Lexx 1 pk daily 4) Monitor PO intake, lab values, weight trend, and I/O Expected Outcomes/Goals: To meet >75% estimated needs Wound to improve Fu 3-5 days Plan discussed with: Other (MARY Nurse) CC Plasma Assessment Blood Product Administration S: [id number] GLORIA SALGADO MD Jan 27, 2025 23:53
--- NOTE | 2025-01-27 23:54 | DVHPN2 ---
Consult Progress Note Date Seen: Jan 27, 2025 Subjective Patient reports: Feels better (high peep up to 12, fio2 80-100%, levophed of 10 mcg. cxr w. slow improved aeration) Objective vital signs Vital Sign Date Time Temp Pulse Resp B/P (MAP) Pulse Ox O2 Delivery O2 Flow Rate FiO2 01/27/25 22:45 97.5 68 22 116/22 (53) 98 207.5 01/27/25 22:00 Mechanical Ventilator+ 85 85 Total Intake and Output 01/26/25 01/26/25 01/27/25 15:00 23:00 07:00 Intake Total 84.816 ml 64.690 ml 400.315 ml Output Total 0 ml Balance 84.816 ml 64.690 ml 400.315 ml medications Current Medications Medications Dose Ordered Sig/Seth Route Start Time Stop Time Status Last Admin Dose Admin Acetaminophen 325 mg Q4HP PRN PO 01/10/25 00:30 01/22/25 00:29 325 MG Ondansetron HCl 4 mg Q4HP PRN IV 01/10/25 00:30 01/20/25 16:19 4 MG Atorvastatin Calcium 40 mg HS PO 01/10/25 22:00 01/27/25 22:14 40 MG Levothyroxine Sodium 125 mcg QAM@0600 PO 01/11/25 06:00 01/27/25 05:01 125 MCG Sodium Chloride 10 ml QSHIFT@10,22 IV 01/12/25 22:00 01/27/25 22:29 10 ML Dextrose 50 ml UD PRN IV 01/14/25 14:15 01/24/25 12:10 50 ML Fluconazole 100 mg POSTDI PRN PO 01/15/25 12:45 Cancel Ertapenem 0.5 gm/ Sodium Chloride 50 ml @ 100 mls/hr DAILY IV 01/19/25 10:00 01/27/25 09:56 100 MLS/HR Albumin Human 100 ml @ 100 mls/hr WD PRN IV 01/18/25 21:00 01/26/25 15:05 100 MLS/HR Guaifenesin/ Dextromethorphan 10 ml TID PO 01/20/25 14:00 01/27/25 22:12 10 ML Albuterol 2.5 mg Q4HPRN PRN NEB 01/20/25 16:00 01/26/25 11:30 2.5 MG Vancomycin HCl 0 ml @ 0 mls/hr PER PHARMACY IV 01/21/25 12:15 Fentanyl Citrate 250 ml @ 2.5 mls/hr Q24H IV 01/23/25 13:45 01/26/25 23:46 2.5 MLS/HR Norepinephrine Bitartrate 32 mg/ Sodium Chloride 250 ml @ 0.938 mls/ hr Q24H IV 01/23/25 14:45 01/25/25 21:57 5.625 MLS/HR Enteral Nutritional Formula 1,000 ml 30ML/HR GT 01/23/25 18:00 01/26/25 23:26 1,000 ML Pantoprazole Sodium 40 mg BID IV 01/23/25 22:00 01/27/25 22:13 40 MG Diagnostic Test (Pha) 1 strip Q6HP 01/24/25 00:00 01/27/25 18:31 1 STRIP Hydrocortisone Sodium Succinate 50 mg Q6HR IV 01/24/25 18:00 01/27/25 18:30 50 MG Sodium Chloride 1,000 ml @ 200 mls/hr Q5H IV 01/25/25 11:00 Cancel Amiodarone HCl 100 mg Q12HR PO 01/25/25 22:00 01/27/25 22:13 100 MG Midazolam HCl 100 ml @ 1 mls/hr Q24H IV 01/25/25 18:00 01/25/25 21:58 3 MLS/HR laboratory and microbiology Laboratory Tests 01/27/25 03:51 Test 01/27/25 03:51 Range/Units Serum Glucose 179 H 74-106 mg/dL Problem List/Assessment/Plan Problem List/Assessment/Plan influenza a, covid, rsv negative BAL culture and blood cultures negative mrsa nares negative vancomycin trough therapuetic, levophed ongoing and high vent needs cardiology notes patient is off DAPT and at risk for instent thrombosis Plans: copd and chf exacerbation per cardiology and pulmonology team leukocytosis related to hydrocortisone use cultures are negative, plan stop vancomycin in next 24 hrs 6 weeks ertapenem anticipated. dialysis as tolerated maps>65 Plan discussed with: Patient Dietary Evaluation Review Comments: Nutrition Recommendation 1) CCHO 60gm + renal standard diet 2) Nephro-santosh 1 tab daily 3) Lexx 1 pk daily 4) Monitor PO intake, lab values, weight trend, and I/O Expected Outcomes/Goals: To meet >75% estimated needs Wound to improve Fu 3-5 days CC Plasma Assessment Blood Product Administration S: [id number] CONY TAYLOR MD Jan 27, 2025 23:54
[2025-01-28] VITALS (106 sets, daily range): BP systolic 81–156; BP diastolic 9–77; PULSE 66–92; RESP 12–28; TEMP 58.1–99.3; O2SAT 83–100
[2025-01-28 03:37] LABS: Hematocrit 29.9 % (36.0-46.0); Hemoglobin 9.9 g/dL (12.2-16.2); Mean Corpuscular Hemoglobin 30.6 pg (28.0-32.0); Mean Corpuscular Volume 92.4 fL (80.0-100.0); Nucleated Red Blood Cells % 0.5 %
[2025-01-28 03:54] LABS: Anion Gap 13 (5-15); BUN/Creatinine Ratio 10.4 (10.0-20.0); Carbon Dioxide 28 mmol/L (20-31); Chloride 101 mmol/L (98-107); Potassium 4.4 mmol/L (3.5-5.1); Sodium 142 mmol/L (136-145)
[2025-01-28 03:55] LABS: Bilirubin, Total 0.9 mg/dL (0.2-1.0)
[2025-01-28 03:57] LABS: Alanine Aminotransferase 77 U/L (7-40); Albumin 2.7 g/dL (3.2-4.8); Alkaline Phosphatase 237 U/L (46-116); Blood Urea Nitrogen 45 mg/dL (9-23); Calcium 8.2 mg/dL (8.7-10.4); Glucose 299 mg/dL (74-106); Total Protein 5.2 g/dL (5.7-8.2)
[2025-01-28 06:43] LABS: Base Excess 0.0 mmol/L (-2.0-3.0)
--- NOTE | 2025-01-28 07:24 | DVH ---
XY CHEST PORTABLE, HISTORY: intubated COMPARISON: XY CHEST XRAY 1 VIEW on DOS: 01/26/25, XY CHEST PORTABLE on DOS: 01/23/25, XY CHEST KRUPA BLE on DOS: 01/20/25 XY CHEST XRAY 1 VIEW on DOS: 01/26/25, XY CHEST PORTABLE on DOS: 01/23/25, XY CHEST PORTABLE on DOS: 01/20/25 TECHNICAL DATA: 1 view of the chest was obtained. FINDINGS: Lines and tubes: Similar lines and tubes. Cardiomediastinal silhouette: Enlarged Pulmonary vasculature: Prominent Lung expansion: low Lung airspace: Patchy bilateral airspace opacity. Lung interstitium: prominent Pleura: normal Pneumothorax: no Bones: Unremarkable Other: no IMPRESSION: Similar lines and tubes. Similar lung aeration bilaterally.
[2025-01-28] MEDS ORDERED: DEXTROSE (50%) 50ML SYRG IV PRN (08:45)
[2025-01-28] MEDS: EPOETIN ALFA-EPBX 4,000 UNIT/ML VIAL IV ONE ×2 (09:45→12:54)
[2025-01-28] MEDS: SODIUM CHL 0.9% 1000 ML BAG XX ONE (09:49)
--- NOTE | 2025-01-28 09:52 | DVHPN2 ---
Subjective Patient chemically sedated Reviewed: Care Plan Changes from previous H/P or p: No Changes Objective Vitals Vital Signs Date Time Temp Pulse Resp B/P (MAP) Pulse Ox O2 Delivery O2 Flow Rate FiO2 01/28/25 07:27 72 22 117/38 (64) 92 60 01/28/25 06:15 99.1 210.4 01/28/25 06:00 Mechanical Ventilator+ Intake/Output Intake and Output 01/28/25 07:00 Intake Total 961.137 ml Balance 961.137 ml Intake Oral 40 ml IV Total 183.137 ml Tube Feeding 738 ml # Voids 1 # Bowel Movements 2 General Appearance: mild distress, Other (Intubated and sedated) HEENT: Atraumatic, PERRLA Lungs: Clear to auscultation, Normal air movement Cardiovascular: Normal S1, Normal S2 Abdomen: Normal bowel sounds, Soft, No tenderness, No hepatospenomegaly Musculoskeletal: Other (Unable to assess) Neuro: Other (Unable to assess) Skin: Dry, Intact, Other (Right foot necrosis) Psych/Mental Status: Other (Unable to assess) Medications Current Medications Medications Dose Ordered Sig/Seth Route Start Time Stop Time Status Last Admin Dose Admin Acetaminophen 325 mg Q4HP PRN PO 01/10/25 00:30 01/22/25 00:29 325 MG Ondansetron HCl 4 mg Q4HP PRN IV 01/10/25 00:30 01/20/25 16:19 4 MG Atorvastatin Calcium 40 mg HS PO 01/10/25 22:00 01/27/25 22:14 40 MG Levothyroxine Sodium 125 mcg QAM@0600 PO 01/11/25 06:00 01/28/25 05:58 125 MCG Sodium Chloride 10 ml QSHIFT@ IV 01/12/25 22:00 01/28/25 09:34 10 ML Dextrose 50 ml UD PRN IV 01/14/25 14:15 01/24/25 12:10 50 ML Fluconazole 100 mg POSTDI PRN PO 01/15/25 12:45 Cancel Ertapenem 0.5 gm/ Sodium Chloride 50 ml @ 100 mls/hr DAILY IV 01/19/25 10:00 01/27/25 09:56 100 MLS/HR Albumin Human 100 ml @ 100 mls/hr WD PRN IV 01/18/25 21:00 01/26/25 15:05 100 MLS/HR Albuterol 2.5 mg Q4HPRN PRN NEB 01/20/25 16:00 01/26/25 11:30 2.5 MG Vancomycin HCl 0 ml @ 0 mls/hr PER PHARMACY IV 01/21/25 12:15 Fentanyl Citrate 250 ml @ 2.5 mls/hr Q24H IV 01/23/25 13:45 01/26/25 23:46 2.5 MLS/HR Norepinephrine Bitartrate 32 mg/ Sodium Chloride 250 ml @ 0.938 mls/ hr Q24H IV 01/23/25 14:45 01/25/25 21:57 5.625 MLS/HR Enteral Nutritional Formula 1,000 ml 30ML/HR GT 01/23/25 18:00 01/26/25 23:26 1,000 ML Pantoprazole Sodium 40 mg BID IV 01/23/25 22:00 01/28/25 09:34 40 MG Hydrocortisone Sodium Succinate 50 mg Q6HR IV 01/24/25 18:00 01/28/25 05:58 50 MG Sodium Chloride 1,000 ml @ 200 mls/hr Q5H IV 01/25/25 11:00 Cancel Amiodarone HCl 100 mg Q12HR PO 01/25/25 22:00 01/27/25 22:13 100 MG Midazolam HCl 100 ml @ 1 mls/hr Q24H IV 01/25/25 18:00 01/25/25 21:58 3 MLS/HR Diagnostic Test (Pha) 1 strip IQ4HR 01/28/25 12:00 Insulin Human Regular IQ4HR SC 01/28/25 12:00 Dextrose 50 ml UD PRN IV 01/28/25 08:45 Laboratory Results Laboratory Tests 01/28/25 02:48 Chemistry Test 01/28/25 02:48 Albumin 2.7 g/dL (3.2-4.8) L Calcium Level 8.2 mg/dL (8.7-10.4) L Total Protein 5.2 g/dL (5.7-8.2) L LFT Test 01/28/25 02:48 Alanine Aminotransferase (ALT) 77 U/L (7-40) H Alkaline Phosphatase 237 U/L (46-116) H Aspartate Amino Transferase (AST) 297 U/L (13-40) H Total Bilirubin 0.9 mg/dL (0.2-1.0) Urinalysis Test 01/10/25 09:18 Urine Color Yellow (Yellow) Urine Clarity Turbid (Clear) H Urine pH 6.5 (5.0-9.0) Urine Specific [place] 1.019 (1.001-1.035) Urine Protein 2+ (Negative) H Urine Ketones Negative (Negative) Urine Blood Negative /uL (Negative) Urine Nitrite Negative (Negative) Urine Bilirubin Negative (Negative) Urine Urobilinogen Normal mg/dL (Negative) Urine Leukocyte Esterase Trace /uL (Negative) Urine RBC 7 /hpf (0 - 4) Urine Microscopic WBC 4 /HPF (0-5) Urine Squamous Epithelial Cells Few /hpf (<5) Urine Bacteria None seen /hpf (None Seen) Urine Yeast (Budding) Moderate /hpf (None Seen) Urine Glucose 1+ mg/dL (Normal) H Blood Gas Results Test 01/28/25 06:30 Arterial Blood pH 7.325 (7.350-7.450) FiO2 % 60.0 Microbiology Microbiology Date/Time Source Procedure Growth Status 01/24/25 10:06 Bronchial Washings Gram Stain - Final Complete 01/24/25 10:06 Bronchial Washings Respiratory Culture - Final Complete 01/23/25 19:15 Blood Blood Culture - Preliminary NO GROWTH AFTER 72 HOURS OF INCUBATION. Resulted 01/23/25 09:15 Nose MRSA Screen - Final Complete 01/10/25 09:18 Voided Urine Urine Culture - Final Presumptive Sully albicans Yeast, not Sully albicans Complete Labs and/or images reviewed: Labs reviewed by me, Image(s) reviewed by me Assessment/Plan Assessment/Plan Impression: -septic shock -right foot osteomyelitis -peripheral arterial disease -acute hypoxic respiratory failure -acute on chronic systolic and diastolic heart failure -end-stage renal disease with hemodialysis -diabetes mellitus Plan: Events: Patient with periods of hypoxia with turning. FiO2 noted to be 60%. Patient receiving HD today. -continue current ventilator settings. Wean FiO2 to keep saturation greater than 92% -pulmonology consultation: Recommendations reviewed. Patient is status post bronchoscopy -continue current antibiotic therapy with Invanz, vancomycin -nephrology consultation: Recommendations reviewed. -regular insulin sliding scale -repeat labs, ABG, and chest x-ray in a.m. Critical care time spent with patient discussing and formulating plan of care: 40 minutes. This does not include time spent performing procedures. This medical document was created using an electronic medical record system with [employer] dictation system. Although this document has been carefully reviewed, there may still be some phonetic and typographical errors. These areas are purely typographical due to imperfections of the software programs, and do not reflect any compromise in the patient's medical care. Plan discussed with: Patient, Other (RN) My Orders Orders - TERRY REDD NP Procedure Category Date Status Time Complete Blood Count LAB 01/29/25 Verified 05:00 Complete Blood Count LAB 01/30/25 Verified 05:00 Comprehensive LAB 01/29/25 Verified Metabolic Panel 05:00 Comprehensive LAB 01/30/25 Verified Metabolic Panel 05:00 Glucose Blood PHA 01/28/25 In Process (Accu-Chek Comfort 12:00 Insulin R (Human) PHA 01/28/25 In Process (Insulin R) 12:00 Dextrose 50% Syringe PHA 01/28/25 In Process 08:45 Date of Service: Jan 28, 2025 Billing Provider: TERRY REDD NP Common Visit Codes: [id number] CARE 30-74 MIN TERRY REDD NP Jan 28, 2025 09:52
--- NOTE | 2025-01-28 11:33 | DVHPN2 ---
Progress Note - Dictate Date Seen: Jan 28, 2025 Medical Necessity Reason Pt with a Central, PICC or Fol: Yes The following are medically ne: Central Line, [place] Catheter Subjective Oxygen requirement is decreasing Undergoing hemodialysis. Continues to be on pressors vital signs Vital Sign Date Time Temp Pulse Resp B/P (MAP) Pulse Ox O2 Delivery O2 Flow Rate FiO2 01/28/25 10:45 98.8 84 22 97/50 (66) 91 209.8 01/28/25 10:34 65 01/28/25 10:00 Mechanical Ventilator+ Total Intake and Output 01/27/25 01/27/25 01/28/25 15:00 23:00 07:00 Intake Total 164.380 ml 507.066 ml 292.501 ml Balance 164.380 ml 507.066 ml 292.501 ml medications Current Medications Medications Dose Ordered Sig/Seth Route Start Time Stop Time Status Last Admin Dose Admin Acetaminophen 325 mg Q4HP PRN PO 01/10/25 00:30 01/22/25 00:29 325 MG Ondansetron HCl 4 mg Q4HP PRN IV 01/10/25 00:30 01/20/25 16:19 4 MG Atorvastatin Calcium 40 mg HS PO 01/10/25 22:00 01/27/25 22:14 40 MG Levothyroxine Sodium 125 mcg QAM@0600 PO 01/11/25 06:00 01/28/25 05:58 125 MCG Sodium Chloride 10 ml QSHIFT@10,22 IV 01/12/25 22:00 01/28/25 09:34 10 ML Dextrose 50 ml UD PRN IV 01/14/25 14:15 01/24/25 12:10 50 ML Fluconazole 100 mg POSTDI PRN PO 01/15/25 12:45 Cancel Ertapenem 0.5 gm/ Sodium Chloride 50 ml @ 100 mls/hr DAILY IV 01/19/25 10:00 01/27/25 09:56 100 MLS/HR Albumin Human 100 ml @ 100 mls/hr WD PRN IV 01/18/25 21:00 01/26/25 15:05 100 MLS/HR Albuterol 2.5 mg Q4HPRN PRN NEB 01/20/25 16:00 01/26/25 11:30 2.5 MG Vancomycin HCl 0 ml @ 0 mls/hr PER PHARMACY IV 01/21/25 12:15 Fentanyl Citrate 250 ml @ 2.5 mls/hr Q24H IV 01/23/25 13:45 01/26/25 23:46 2.5 MLS/HR Norepinephrine Bitartrate 32 mg/ Sodium Chloride 250 ml @ 0.938 mls/ hr Q24H IV 01/23/25 14:45 01/25/25 21:57 5.625 MLS/HR Enteral Nutritional Formula 1,000 ml 30ML/HR GT 01/23/25 18:00 01/26/25 23:26 1,000 ML Pantoprazole Sodium 40 mg BID IV 01/23/25 22:00 01/28/25 09:34 40 MG Sodium Chloride 1,000 ml @ 200 mls/hr Q5H IV 01/25/25 11:00 Cancel Amiodarone HCl 100 mg Q12HR PO 01/25/25 22:00 01/28/25 10:27 100 MG Midazolam HCl 100 ml @ 1 mls/hr Q24H IV 01/25/25 18:00 01/25/25 21:58 3 MLS/HR Diagnostic Test (Pha) 1 strip IQ4HR 01/28/25 12:00 Insulin Human Regular IQ4HR SC 01/28/25 12:00 Dextrose 50 ml UD PRN IV 01/28/25 08:45 Hydrocortisone Sodium Succinate 50 mg Q8HR IV 01/28/25 14:00 objective intubated and sedated Pulmonary: Diminished breath sounds at bases Cardiovascular S1-S2, no S3 or S4 Abdomen: Bowel sounds positive, soft no rebound tenderness Neurological: intubated and sedated Extremities: Right foot gangrenous laboratory and microbiology Laboratory Tests 01/28/25 02:48 Test 01/28/25 02:48 Range/Units Serum Glucose 299 H 74-106 mg/dL Problem List ESRD on HD Acute hypoxic respiratory failure Shock secondary to sepsis Right foot osteomyelitis Pneumonia DM hypothyroidism Leukocytosis Anemia Hyperphosphatemia Secondary hyperparathyroidism Thrombocytopenia Assessment/Plan Patient is again being dialyzed today. Continue dialysis on TTS schedule. vent management as per pulmonary continue IV abx . Currently on vancomycin and ertapenem Monitor H/H closely and transfuse prn Scheduled for CT of the chest without contrast Prognosis guarded Dietary Evaluation Review Comments: Nutrition Recommendation 1) CCHO 60gm + renal standard diet 2) Nephro-santosh 1 tab daily 3) Lexx 1 pk daily 4) Monitor PO intake, lab values, weight trend, and I/O Expected Outcomes/Goals: To meet >75% estimated needs Wound to improve Fu 3-5 days Plan discussed with: Other CC Plasma Assessment Blood Product Administration S: [id number] RENETTA LORENZ MD Jan 28, 2025 11:33
[2025-01-28] MEDS: InsuLIN REG 1unit/0.01ml Soln (100units/ml) SC SCH (11:51)
[2025-01-28] MEDS: ACCU-CHEK COMFORT CURVE STRIP VI SCH (11:51)
--- NOTE | 2025-01-28 12:41 | DVHPN2 ---
Consult Progress Note Date Seen: Jan 28, 2025 Subjective Patient reports: Feels better (no diarrhea or rash) Objective vital signs Vital Sign Date Time Temp Pulse Resp B/P (MAP) Pulse Ox O2 Delivery O2 Flow Rate FiO2 01/28/25 10:45 98.8 84 22 97/50 (66) 91 209.8 01/28/25 10:34 65 01/28/25 10:00 Mechanical Ventilator+ Total Intake and Output 01/27/25 01/27/25 01/28/25 15:00 23:00 07:00 Intake Total 164.380 ml 507.066 ml 292.501 ml Balance 164.380 ml 507.066 ml 292.501 ml medications Current Medications Medications Dose Ordered Sig/Seth Route Start Time Stop Time Status Last Admin Dose Admin Acetaminophen 325 mg Q4HP PRN PO 01/10/25 00:30 01/22/25 00:29 325 MG Ondansetron HCl 4 mg Q4HP PRN IV 01/10/25 00:30 01/20/25 16:19 4 MG Atorvastatin Calcium 40 mg HS PO 01/10/25 22:00 01/27/25 22:14 40 MG Levothyroxine Sodium 125 mcg QAM@0600 PO 01/11/25 06:00 01/28/25 05:58 125 MCG Sodium Chloride 10 ml QSHIFT@10,22 IV 01/12/25 22:00 01/28/25 09:34 10 ML Dextrose 50 ml UD PRN IV 01/14/25 14:15 01/24/25 12:10 50 ML Fluconazole 100 mg POSTDI PRN PO 01/15/25 12:45 Cancel Ertapenem 0.5 gm/ Sodium Chloride 50 ml @ 100 mls/hr DAILY IV 01/19/25 10:00 01/27/25 09:56 100 MLS/HR Albumin Human 100 ml @ 100 mls/hr WD PRN IV 01/18/25 21:00 01/26/25 15:05 100 MLS/HR Albuterol 2.5 mg Q4HPRN PRN NEB 01/20/25 16:00 01/26/25 11:30 2.5 MG Vancomycin HCl 0 ml @ 0 mls/hr PER PHARMACY IV 01/21/25 12:15 Fentanyl Citrate 250 ml @ 2.5 mls/hr Q24H IV 01/23/25 13:45 01/26/25 23:46 2.5 MLS/HR Norepinephrine Bitartrate 32 mg/ Sodium Chloride 250 ml @ 0.938 mls/ hr Q24H IV 01/23/25 14:45 01/25/25 21:57 5.625 MLS/HR Enteral Nutritional Formula 1,000 ml 30ML/HR GT 01/23/25 18:00 01/26/25 23:26 1,000 ML Pantoprazole Sodium 40 mg BID IV 01/23/25 22:00 01/28/25 09:34 40 MG Sodium Chloride 1,000 ml @ 200 mls/hr Q5H IV 01/25/25 11:00 Cancel Amiodarone HCl 100 mg Q12HR PO 01/25/25 22:00 01/28/25 10:27 100 MG Midazolam HCl 100 ml @ 1 mls/hr Q24H IV 01/25/25 18:00 01/25/25 21:58 3 MLS/HR Diagnostic Test (Pha) 1 strip IQ4HR 01/28/25 12:00 Insulin Human Regular IQ4HR SC 01/28/25 12:00 Dextrose 50 ml UD PRN IV 01/28/25 08:45 Hydrocortisone Sodium Succinate 50 mg Q8HR IV 01/28/25 14:00 laboratory and microbiology Laboratory Tests 01/28/25 02:48 Test 01/28/25 02:48 Range/Units Serum Glucose 299 H 74-106 mg/dL Problem List/Assessment/Plan Problem List/Assessment/Plan influenza a, covid, rsv negative BAL culture and blood cultures negative mrsa nares negative vancomycin trough therapuetic, levophed ongoing and high vent needs cardiology notes patient is off DAPT and at risk for instent thrombosis Plans: copd and chf exacerbation per cardiology and pulmonology team leukocytosis related to hydrocortisone use cultures are negative, will stop vancomycin consider CT R foot to evaluate for abscess or hematoma when more clinically stable 6 weeks ertapenem anticipated. dialysis as tolerated maps>65 Dietary Evaluation Review Comments: Nutrition Recommendation 1) CCHO 60gm + renal standard diet 2) Nephro-santosh 1 tab daily 3) Lexx 1 pk daily 4) Monitor PO intake, lab values, weight trend, and I/O Expected Outcomes/Goals: To meet >75% estimated needs Wound to improve Fu 3-5 days CC Plasma Assessment Blood Product Administration S: [id number] CONY TAYLOR MD Jan 28, 2025 12:41
--- NOTE | 2025-01-28 13:58 | DVHSR ---
APPROVED REPORT EXAM: Two-dimensional and M-mode echocardiogram with Doppler and color Doppler. Blood Pressure: 102/27 mmHg INDICATION Heart Failure RISK FACTORS Height: 5'2", Weight: 155 DIMENSIONS LVDd4.8 (3.8-5.7cm)LA (2D)4.1 (1.9-4.0cm)Aortic Root3.3 (2.0-3.7cm) LVDs4.2 (2.5-4.0cm)LA (MM) (1.9-4.0cm)Aortic Cusp Exc1.0 (1.5-2.0cm) EF (%) 26.0 (55-70%)Rt. Atrium4.2 (1.9-4.0cm)Asc. Aorta3.3 cm IVSd1.2 (0.7-1.1cm)RV (D)4.1 (1.8-2.4cm) PWd1.5 (0.7-1.1cm) Mitral Valve MitralMitral Stenosis E wave0.66m/sMV Mean GR.1mmHg A wave0.93m/sMV Peak GR.4mmHg E/A ratio0.72D MVAcm2 DECEL [id number] 1/2 Timems Aortic Valve Aortic ValveAortic Stenosis V10.88m/Silvio Mean GR.9mmHg V22.09m/Silvio Peak GR.17mmHg LVOT Diameter2.6 (1.8-2.4cm)Doppler AVA2.23cm2 Tricuspid Valve TR Velocity2.56m/s [id number] Conclusion lvef 25% severe systolic HF RV dysfunction pacing lead in RV left atrium enalrged mild mitral stenosis, severe MAC
[2025-01-28] MEDS: HYDROCORTISONE SOD SUCC 100 MG/2ML INJ VIAL IV SCH (14:52)
--- NOTE | 2025-01-28 21:48 | DVHPN2 ---
[facility] DOS: 01/28/2025 Patient seen and examined at bedside. Sedated, intubated on mechanical ventilator. Overnight events reviewed. Reviewed: Care Plan Changes from previous H/P or p: No Changes Objective Vitals Vital Signs Date Time Temp Pulse Resp B/P (MAP) Pulse Ox O2 Delivery O2 Flow Rate FiO2 01/28/25 21:03 98.8 77 22 92/57 (69) 93 209.8 01/28/25 20:30 50 01/28/25 18:10 Mechanical Ventilator Intake/Output Intake and Output 01/28/25 07:00 Intake Total 963.947 ml Balance 963.947 ml Intake Oral 40 ml IV Total 185.947 ml Tube Feeding 738 ml # Voids 1 # Bowel Movements 2 Exam Gen.: Patient lying in bed in medical ICU. Sedated, intubated on mechanical ventilator. Head: Normocephalic, atraumatic. Eyes: PERRLA. Ears: Normal external anatomy. Throat: Endotracheal tube and orogastric tube in place. Neck: Supple, trachea midline. Chest: Transmitted breath sounds bilaterally. Decreased air entry bilaterally. No wheezing. Bibasilar crackles. Cardiovascular: Positive S1, positive S2. Regular rate and rhythm. Abdomen: Positive bowel sounds in all 4 quadrants. Soft, nontender, nondistended. : Lofton in place. Normal external genitalia. Rectal: Deferred. Skin: Warm, dry. Right foot osteomyelitis. Extremities: 2+ radial pulses bilaterally. No lower extremity edema. Neuro: Sedated. General Appearance: mild distress, Other (Intubated and sedated) HEENT: Atraumatic, PERRLA Lungs: Clear to auscultation, Normal air movement Cardiovascular: Normal S1, Normal S2 Abdomen: Normal bowel sounds, Soft, No tenderness, No hepatospenomegaly Musculoskeletal: Other (Unable to assess) Neuro: Other (Unable to assess) Skin: Dry, Intact, Other (Right foot necrosis) Psych/Mental Status: Other (Unable to assess) Medications Current Medications Medications Dose Ordered Sig/Seth Route Start Time Stop Time Status Last Admin Dose Admin Acetaminophen 325 mg Q4HP PRN PO 01/10/25 00:30 01/22/25 00:29 325 MG Ondansetron HCl 4 mg Q4HP PRN IV 01/10/25 00:30 01/20/25 16:19 4 MG Atorvastatin Calcium 40 mg HS PO 01/10/25 22:00 01/27/25 22:14 40 MG Levothyroxine Sodium 125 mcg QAM@0600 PO 01/11/25 06:00 01/28/25 05:58 125 MCG Sodium Chloride 10 ml QSHIFT@10,22 IV 01/12/25 22:00 01/28/25 09:34 10 ML Dextrose 50 ml UD PRN IV 01/14/25 14:15 01/24/25 12:10 50 ML Fluconazole 100 mg POSTDI PRN PO 01/15/25 12:45 Cancel Ertapenem 0.5 gm/ Sodium Chloride 50 ml @ 100 mls/hr DAILY IV 01/19/25 10:00 01/28/25 13:05 100 MLS/HR Albumin Human 100 ml @ 100 mls/hr WD PRN IV 01/18/25 21:00 01/26/25 15:05 100 MLS/HR Albuterol 2.5 mg Q4HPRN PRN NEB 01/20/25 16:00 01/28/25 19:03 2.5 MG Vancomycin HCl 0 ml @ 0 mls/hr PER PHARMACY IV 01/21/25 12:15 Cancel Fentanyl Citrate 250 ml @ 2.5 mls/hr Q24H IV 01/23/25 13:45 01/26/25 23:46 2.5 MLS/HR Norepinephrine Bitartrate 32 mg/ Sodium Chloride 250 ml @ 0.938 mls/ hr Q24H IV 01/23/25 14:45 01/25/25 21:57 5.625 MLS/HR Enteral Nutritional Formula 1,000 ml 30ML/HR GT 01/23/25 18:00 01/26/25 23:26 1,000 ML Pantoprazole Sodium 40 mg BID IV 01/23/25 22:00 01/28/25 09:34 40 MG Sodium Chloride 1,000 ml @ 200 mls/hr Q5H IV 01/25/25 11:00 Cancel Amiodarone HCl 100 mg Q12HR PO 01/25/25 22:00 01/28/25 10:27 100 MG Midazolam HCl 100 ml @ 1 mls/hr Q24H IV 01/25/25 18:00 01/25/25 21:58 3 MLS/HR Diagnostic Test (Pha) 1 strip IQ4HR 01/28/25 12:00 01/28/25 20:44 1 STRIP Insulin Human Regular IQ4HR SC 01/28/25 12:00 01/28/25 20:44 3 UNITS Dextrose 50 ml UD PRN IV 01/28/25 08:45 Hydrocortisone Sodium Succinate 50 mg Q8HR IV 01/28/25 14:00 01/28/25 14:52 50 MG Laboratory Results Laboratory Tests 01/28/25 02:48 Chemistry Test 01/28/25 02:48 Albumin 2.7 g/dL (3.2-4.8) L Calcium Level 8.2 mg/dL (8.7-10.4) L Total Protein 5.2 g/dL (5.7-8.2) L LFT Test 01/28/25 02:48 Alanine Aminotransferase (ALT) 77 U/L (7-40) H Alkaline Phosphatase 237 U/L (46-116) H Aspartate Amino Transferase (AST) 297 U/L (13-40) H Total Bilirubin 0.9 mg/dL (0.2-1.0) Urinalysis Test 01/10/25 09:18 Urine Color Yellow (Yellow) Urine Clarity Turbid (Clear) H Urine pH 6.5 (5.0-9.0) Urine Specific [place] 1.019 (1.001-1.035) Urine Protein 2+ (Negative) H Urine Ketones Negative (Negative) Urine Blood Negative /uL (Negative) Urine Nitrite Negative (Negative) Urine Bilirubin Negative (Negative) Urine Urobilinogen Normal mg/dL (Negative) Urine Leukocyte Esterase Trace /uL (Negative) Urine RBC 7 /hpf (0 - 4) Urine Microscopic WBC 4 /HPF (0-5) Urine Squamous Epithelial Cells Few /hpf (<5) Urine Bacteria None seen /hpf (None Seen) Urine Yeast (Budding) Moderate /hpf (None Seen) Urine Glucose 1+ mg/dL (Normal) H Blood Gas Results Test 01/28/25 06:30 Arterial Blood pH 7.325 (7.350-7.450) FiO2 % 60.0 Microbiology Microbiology Date/Time Source Procedure Growth Status 01/24/25 10:06 Bronchial Washings Gram Stain - Final Complete 01/24/25 10:06 Bronchial Washings Respiratory Culture - Final Complete 01/23/25 19:15 Blood Blood Culture - Final NO GROWTH AFTER 5 DAYS OF INCUBATION. Complete 01/23/25 09:15 Nose MRSA Screen - Final Complete 01/10/25 09:18 Voided Urine Urine Culture - Final Presumptive Sully albicans Yeast, not Sully albicans Complete Assessment/Plan Assessment/Plan Impression: Acute hypoxic respiratory failure On mechanical ventilator Acute CHF exacerbation End-stage renal disease, on hemodialysis Osteomyelitis Overweight Events: Remains on vent support On AC mode; RR 22, VT 400, PEEP 12, FiO2 50% Improved FiO2 requirements. Taper PEEP and FiO2 as tolerated Patient noted to desaturate with turns. Sedated on Versed ABG reviewed, notable for acidemia CXR demonstrates patchy bilateral airspace opacity. Pressors for hemodynamic support Levophed 6 mcg/min Titrate to keep mean arterial pressure greater than 65 mmHg. Improved pressor requirements S/p hemodialysis today Continue bronchodilators. Continue antibiotics. Continue IV stress dose steroids Accu-Cheks, ISS. Hemodialysis per Nephrology Nephrology recs appreciated Monitor renal function Monitor electrolytes. Supplement as necessary. Monitor ins and outs. Tube feeds for nutritional support Labs and imaging reviewed. Rest of plan as noted below. Plan: s/p intubation on mechanical ventilator. On AC mode; RR 22, VT 400, PEEP 12, FiO2 50% S/p bronchoscopy on 11/24/24 - Results from bronchial washings show no growth. Titrate FIO2 to keep O2 saturation above 90%. VAP bundle. Daily ABG and CXR while intubated Sedate for ventilator synchrony Continue bronchodilators. Continue antibiotics. Follow up cultures. IV steroids Pressors for hemodynamic support Titrate to keep mean arterial pressure greater than 65 mmHg. Wound care. Monitor H&H. Hemodialysis per Nephrology Monitor renal function Monitor electrolytes. Supplement as necessary. Monitor ins and outs. Maintain euvolemia. GI prophylaxis. DVT prophylaxis. Prognosis: Poor given patient's multiple co-morbidities. Condition: Critical Rest of plan per hospitalist and other consultants. A total of 35 minutes of critical care time was spent reviewing the patient record, examining the patient, making a diagnostic and therapeutic plan, discussing this plan with the medical personnel, following up on diagnostic studies and following the patient for clinical stability excluding any and all procedures. At least 50% of this time was spent in direct, [id number] contact. Thank you, Dr. Bowie, for allowing me to participate in this patient's care. Further recommendations will depend on the patient's clinical course. Please do not hesitate to contact me if you have any questions or concerns. This medical document was created using an electronic medical record system with [email or web address] dictation system. Although these documentations are being carefully reviewed, there may still be some phonetic and typographical changes. The errors are purely typographical, due to imperfection on the software program, and do not reflect any compromise in the patient's medical care. Plan discussed with: Other (ALBERTINA Rubio) Visit Coding Pulmonary Billing Provider: ALCON GUTHRIE MD Date of Service if different f: Jan 28, 2025 Common Visit Codes: [id number] INP/OBS CARE(HIGH), [id number] CARE 30-74 MIN ALCON GUTHRIE MD Jan 28, 2025 21:48
[2025-01-29] VITALS (110 sets, daily range): BP systolic 62–141; BP diastolic 18–69; PULSE 76–93; RESP 11–23; TEMP 97.2–99.7; O2SAT 88–100
[2025-01-29 03:58] LABS: Hematocrit 30.6 % (36.0-46.0); Hemoglobin 10.4 g/dL (12.2-16.2); Mean Corpuscular Hemoglobin 30.9 pg (28.0-32.0); Mean Corpuscular Volume 91.3 fL (80.0-100.0); Nucleated Red Blood Cells % 1.0 %
[2025-01-29 04:16] LABS: Alkaline Phosphatase 252 U/L (46-116); Anion Gap 13 (5-15); BUN/Creatinine Ratio 12.0 (10.0-20.0); Blood Urea Nitrogen 49 mg/dL (9-23); Carbon Dioxide 27 mmol/L (20-31); Chloride 102 mmol/L (98-107); Glucose 219 mg/dL (74-106); Potassium 4.2 mmol/L (3.5-5.1); Sodium 142 mmol/L (136-145)
[2025-01-29 04:17] LABS: Alanine Aminotransferase 80 U/L (7-40); Albumin 2.8 g/dL (3.2-4.8); Bilirubin, Total 1.0 mg/dL (0.2-1.0); Calcium 8.4 mg/dL (8.7-10.4); Total Protein 5.6 g/dL (5.7-8.2)
--- NOTE | 2025-01-29 04:29 | DVH ---
CHEST RADIOGRAPH Indication: pna, chf Technique: Single frontal view of the chest was obtained COMPARISON: XY CHEST PORTABLE on DOS: 01/28/25, XY CHEST XRAY 1 VIEW on DOS: 01/26/25, XY CHEST KRUPA BLE on DOS: 01/23/25, XY CHEST PORTABLE on DOS: 01/20/25, XY CHEST XRAY 1 VIEW on DOS: 01/10/25 FINDINGS: Lines and Tubes: Slight interval advancement of the endotracheal tube such that the tip now projects approximately 2.6 cm above the level of the rod. Remaining lines and tubes unchanged. Lungs: Slight interval decrease in consolidative features of multifocal bilateral pulmonary airspace disease. Pleura: No effusion. No pneumothorax. Cardiomediastinal contours: Unremarkable Bones: Unremarkable IMPRESSION: 1. Slight interval advancement of the endotracheal tube. Remaining Lines and tubes unchanged. 2. Slight interval decrease in consolidative features of multifocal bilateral pulmonary airspace dise ase.
[2025-01-29 07:16] LABS: Base Excess 1.3 mmol/L (-2.0-3.0)
--- NOTE | 2025-01-29 12:07 | DVHPN2 ---
Consult Progress Note Date Seen: Jan 29, 2025 Subjective Patient reports: No new complaints, Feels better (no new fevers off vancomycin) Objective vital signs Vital Sign Date Time Temp Pulse Resp B/P (MAP) Pulse Ox O2 Delivery O2 Flow Rate FiO2 01/29/25 10:15 98.6 83 22 118/28 (58) 93 209.5 01/29/25 10:13 70 01/29/25 10:13 Mechanical Ventilator+ Total Intake and Output 01/28/25 01/28/25 01/29/25 15:00 23:00 07:00 Intake Total 40.289 ml 366.876 ml 276.000 ml Output Total 2800 ml Balance -2759.711 ml 366.876 ml 276.000 ml medications Current Medications Medications Dose Ordered Sig/Seth Route Start Time Stop Time Status Last Admin Dose Admin Acetaminophen 325 mg Q4HP PRN PO 01/10/25 00:30 01/22/25 00:29 325 MG Ondansetron HCl 4 mg Q4HP PRN IV 01/10/25 00:30 01/20/25 16:19 4 MG Atorvastatin Calcium 40 mg HS PO 01/10/25 22:00 01/28/25 21:48 40 MG Levothyroxine Sodium 125 mcg QAM@0600 PO 01/11/25 06:00 01/29/25 05:41 125 MCG Sodium Chloride 10 ml QSHIFT@,22 IV 01/12/25 22:00 01/29/25 09:32 10 ML Dextrose 50 ml UD PRN IV 01/14/25 14:15 01/24/25 12:10 50 ML Fluconazole 100 mg POSTDI PRN PO 01/15/25 12:45 Cancel Ertapenem 0.5 gm/ Sodium Chloride 50 ml @ 100 mls/hr DAILY IV 01/19/25 10:00 01/29/25 09:33 100 MLS/HR Albumin Human 100 ml @ 100 mls/hr WD PRN IV 01/18/25 21:00 01/26/25 15:05 100 MLS/HR Albuterol 2.5 mg Q4HPRN PRN NEB 01/20/25 16:00 01/29/25 09:27 2.5 MG Vancomycin HCl 0 ml @ 0 mls/hr PER PHARMACY IV 01/21/25 12:15 Cancel Fentanyl Citrate 250 ml @ 2.5 mls/hr Q24H IV 01/23/25 13:45 01/26/25 23:46 2.5 MLS/HR Norepinephrine Bitartrate 32 mg/ Sodium Chloride 250 ml @ 0.938 mls/ hr Q24H IV 01/23/25 14:45 01/25/25 21:57 5.625 MLS/HR Enteral Nutritional Formula 1,000 ml 30ML/HR GT 01/23/25 18:00 01/26/25 23:26 1,000 ML Pantoprazole Sodium 40 mg BID IV 01/23/25 22:00 01/29/25 09:32 40 MG Sodium Chloride 1,000 ml @ 200 mls/hr Q5H IV 01/25/25 11:00 Cancel Amiodarone HCl 100 mg Q12HR PO 01/25/25 22:00 01/29/25 09:32 100 MG Midazolam HCl 100 ml @ 1 mls/hr Q24H IV 01/25/25 18:00 01/25/25 21:58 3 MLS/HR Diagnostic Test (Pha) 1 strip IQ4HR 01/28/25 12:00 01/29/25 08:15 1 STRIP Insulin Human Regular IQ4HR SC 01/28/25 12:00 01/29/25 08:15 9 UNITS Dextrose 50 ml UD PRN IV 01/28/25 08:45 Hydrocortisone Sodium Succinate 50 mg Q8HR IV 01/28/25 14:00 01/29/25 05:41 50 MG laboratory and microbiology Laboratory Tests 01/29/25 03:00 Test 01/29/25 03:00 Range/Units Serum Glucose 219 H 74-106 mg/dL Problem List/Assessment/Plan Problem List/Assessment/Plan influenza a, covid, rsv negative BAL culture and blood cultures negative mrsa nares negative vancomycin trough therapuetic, levophed ongoing and high vent needs = levophed 4, fio2 70%, cardiology notes patient is off DAPT and at risk for instent thrombosis Plans: copd and chf exacerbation per cardiology and pulmonology team leukocytosis related to hydrocortisone use consider CT R foot to evaluate for abscess or hematoma when more clinically stable 6 weeks ertapenem anticipated. dialysis as tolerated maps>65 Plan discussed with: Patient Dietary Evaluation Review Comments: Nutrition Recommendation 1) CCHO 60gm + renal standard diet 2) Nephro-santosh 1 tab daily 3) Lexx 1 pk daily 4) Monitor PO intake, lab values, weight trend, and I/O Expected Outcomes/Goals: To meet >75% estimated needs Wound to improve Fu 3-5 days CC Plasma Assessment Blood Product Administration S: [id number] CONY TAYLOR MD Jan 29, 2025 12:07
--- NOTE | 2025-01-29 13:27 | DVHPN2 ---
Progress Note - Dictate Date Seen: Jan 29, 2025 Medical Necessity Reason Pt with a Central, PICC or Fol: Yes The following are medically ne: Central Line, Lofton Catheter Subjective On mechanical ventilation vital signs Vital Sign Date Time Temp Pulse Resp B/P (MAP) Pulse Ox O2 Delivery O2 Flow Rate FiO2 01/29/25 12:15 81 19 140/36 (70) 97 01/29/25 12:00 50 01/29/25 12:00 Mechanical Ventilator+ 01/29/25 12:00 97.2 97.2 Total Intake and Output 01/28/25 01/28/25 01/29/25 15:00 23:00 07:00 Intake Total 40.289 ml 366.876 ml 276.000 ml Output Total 2800 ml Balance -2759.711 ml 366.876 ml 276.000 ml medications Current Medications Medications Dose Ordered Sig/Seth Route Start Time Stop Time Status Last Admin Dose Admin Acetaminophen 325 mg Q4HP PRN PO 01/10/25 00:30 01/22/25 00:29 325 MG Ondansetron HCl 4 mg Q4HP PRN IV 01/10/25 00:30 01/20/25 16:19 4 MG Atorvastatin Calcium 40 mg HS PO 01/10/25 22:00 01/28/25 21:48 40 MG Levothyroxine Sodium 125 mcg QAM@0600 PO 01/11/25 06:00 01/29/25 05:41 125 MCG Sodium Chloride 10 ml QSHIFT@10,22 IV 01/12/25 22:00 01/29/25 09:32 10 ML Dextrose 50 ml UD PRN IV 01/14/25 14:15 01/24/25 12:10 50 ML Fluconazole 100 mg POSTDI PRN PO 01/15/25 12:45 Cancel Ertapenem 0.5 gm/ Sodium Chloride 50 ml @ 100 mls/hr DAILY IV 01/19/25 10:00 01/29/25 09:33 100 MLS/HR Albumin Human 100 ml @ 100 mls/hr WD PRN IV 01/18/25 21:00 01/26/25 15:05 100 MLS/HR Albuterol 2.5 mg Q4HPRN PRN NEB 01/20/25 16:00 01/29/25 09:27 2.5 MG Vancomycin HCl 0 ml @ 0 mls/hr PER PHARMACY IV 01/21/25 12:15 Cancel Fentanyl Citrate 250 ml @ 2.5 mls/hr Q24H IV 01/23/25 13:45 01/26/25 23:46 2.5 MLS/HR Norepinephrine Bitartrate 32 mg/ Sodium Chloride 250 ml @ 0.938 mls/ hr Q24H IV 01/23/25 14:45 01/25/25 21:57 5.625 MLS/HR Enteral Nutritional Formula 1,000 ml 30ML/HR GT 01/23/25 18:00 01/26/25 23:26 1,000 ML Pantoprazole Sodium 40 mg BID IV 01/23/25 22:00 01/29/25 09:32 40 MG Sodium Chloride 1,000 ml @ 200 mls/hr Q5H IV 01/25/25 11:00 Cancel Amiodarone HCl 100 mg Q12HR PO 01/25/25 22:00 01/29/25 09:32 100 MG Midazolam HCl 100 ml @ 1 mls/hr Q24H IV 01/25/25 18:00 01/25/25 21:58 3 MLS/HR Diagnostic Test (Pha) 1 strip IQ4HR 01/28/25 12:00 01/29/25 12:07 1 STRIP Insulin Human Regular IQ4HR SC 01/28/25 12:00 01/29/25 12:07 6 UNITS Dextrose 50 ml UD PRN IV 01/28/25 08:45 Hydrocortisone Sodium Succinate 50 mg Q8HR IV 01/28/25 14:00 01/29/25 05:41 50 MG objective intubated and sedated Pulmonary: Diminished breath sounds at bases Cardiovascular S1-S2, no S3 or S4 Abdomen: Bowel sounds positive, soft no rebound tenderness Neurological: intubated and sedated Extremities: Right foot gangrenous laboratory and microbiology Laboratory Tests 01/29/25 03:00 Test 01/29/25 03:00 Range/Units Serum Glucose 219 H 74-106 mg/dL Problem List Problem List ESRD on HD, stable from renal standpoint Acute hypoxic respiratory failure Shock secondary to sepsis Right foot osteomyelitis Pneumonia DM hypothyroidism Leukocytosis Anemia Hyperphosphatemia Secondary hyperparathyroidism Thrombocytopenia Assessment/Plan Continue dialysis on TTS schedule. continue IV abx . Currently on vancomycin and ertapenem Monitor H/H closely and transfuse prn Prognosis guarded Dietary Evaluation Review Comments: Nutrition Recommendation 1) CCHO 60gm + renal standard diet 2) Nephro-santosh 1 tab daily 3) Lexx 1 pk daily 4) Monitor PO intake, lab values, weight trend, and I/O Expected Outcomes/Goals: To meet >75% estimated needs Wound to improve Fu 3-5 days Plan discussed with: Other CC Plasma Assessment Blood Product Administration S: [id number] NEL MONAHAN MD Jan 29, 2025 13:27
--- NOTE | 2025-01-29 14:34 | DVHPN2 ---
Assessment/Plan Assessment/Plan ICU note 64 F w ESRD on HD [place], NIDDM, HTN transferred from OSH for OM s/p trauma. Found to have significant PAD, s/p angio and stent. Seen with ams, increased WOB and hypotension, decision made with family to intubate. pending repeat CT, high peep, on pressor, unstable. gangrene on toe but inlikely to be stable for surgery. will get podiatry. diarrhea likely from TF related physical exam intubated, sedated on mech vent b/l coarse rhonchi, thick white sputum on ett s1 s2 rrr abdomen soft trace LE edema labs ekg imaging reviewed assessment and plan acute hypoxic RF req mech vent acute metabolic encephalopathy ESRD on HD acute on chronic systolic HF aspiration PNA? vs fluid overload ARDS? right heart failure HFrEF 20% s/p AICD HLD R foot OM s/p I&D to bone NIDDM now w hypoglycemia hypothyroidism thrombocytopenic anemia CKD positive FOBT c/w mech vent c/w pressor, maintain SBP >90 HD per renal c/w sedation, maintain RAAS -1 to -2 somewhat euvolemic, will hold fluid trend lactate c/w invanz and vanc, ID recc appreciated pulm consult for bronch stress dose steroid hold platelet tf hold insulin, if hypoglycemic d50 start TF reculture podiatry diet TF dvt ppx heparin condition critical prognosis poor full code critical care time 45 minutes excluding procedure Plan discussed with: Other My Orders Orders - ROBERTO VASQUEZ MD Procedure Category Date Status Time Insert Rectal Tube ORDERS 01/29/25 Transmitted 11:52 Communication Order ORDERS 01/29/25 Transmitted 11:52 Date of Service: Jan 29, 2025 Billing Provider: ROBERTO VASQUEZ MD Common Visit Codes: 69095-[id number] CARE 30-74 MIN ROBERTO VASQUEZ MD Jan 29, 2025 14:34
--- NOTE | 2025-01-29 17:18 | DVHPN2 ---
Progress Note - Dictate Date Seen: Jan 29, 2025 Medical Necessity Reason Pt with a Central, PICC or Fol: Yes The following are medically ne: Central Line, Lofton Catheter Subjective Patient seen at bedside in [facility] She is intubated sedated Patient has CHF exacerbation respiratory failure, On HD schedule She has high oxygen requirements of 95% FiO2 with 12 peep Patient was still on low-dose Levophed at 4 mics per hour No nausea vomiting abdominal pain or GI bleeding reported ; hemoglobin stable at 10, stool occult positive She has mild persistent elevation of liver enzymes; hepatitis panel was negative and DIEGO is pending She is tolerating tube feedings at 30 mL/hour Patient has a rectal tube in place because of multiple bowel movements vital signs Vital Sign Date Time Temp Pulse Resp B/P (MAP) Pulse Ox O2 Delivery O2 Flow Rate FiO2 01/29/25 16:00 22 97 Mechanical Ventilator+ 60 60 01/29/25 16:00 79 01/29/25 15:33 105/34 (57) 01/29/25 12:00 97.2 97.2 Total Intake and Output 01/28/25 01/28/25 01/29/25 15:00 23:00 07:00 Intake Total 40.289 ml 366.876 ml 276.000 ml Output Total 2800 ml Balance -2759.711 ml 366.876 ml 276.000 ml medications Current Medications Medications Dose Ordered Sig/Seth Route Start Time Stop Time Status Last Admin Dose Admin Acetaminophen 325 mg Q4HP PRN PO 01/10/25 00:30 01/22/25 00:29 325 MG Ondansetron HCl 4 mg Q4HP PRN IV 01/10/25 00:30 01/20/25 16:19 4 MG Atorvastatin Calcium 40 mg HS PO 01/10/25 22:00 01/28/25 21:48 40 MG Levothyroxine Sodium 125 mcg QAM@0600 PO 01/11/25 06:00 01/29/25 05:41 125 MCG Sodium Chloride 10 ml QSHIFT@ IV 01/12/25 22:00 01/29/25 09:32 10 ML Dextrose 50 ml UD PRN IV 01/14/25 14:15 01/24/25 12:10 50 ML Fluconazole 100 mg POSTDI PRN PO 01/15/25 12:45 Cancel Ertapenem 0.5 gm/ Sodium Chloride 50 ml @ 100 mls/hr DAILY IV 01/19/25 10:00 01/29/25 09:33 100 MLS/HR Albumin Human 100 ml @ 100 mls/hr WD PRN IV 01/18/25 21:00 01/26/25 15:05 100 MLS/HR Albuterol 2.5 mg Q4HPRN PRN NEB 01/20/25 16:00 01/29/25 13:27 2.5 MG Vancomycin HCl 0 ml @ 0 mls/hr PER PHARMACY IV 01/21/25 12:15 Cancel Fentanyl Citrate 250 ml @ 2.5 mls/hr Q24H IV 01/23/25 13:45 01/26/25 23:46 2.5 MLS/HR Norepinephrine Bitartrate 32 mg/ Sodium Chloride 250 ml @ 0.938 mls/ hr Q24H IV 01/23/25 14:45 01/25/25 21:57 5.625 MLS/HR Enteral Nutritional Formula 1,000 ml 30ML/HR GT 01/23/25 18:00 01/26/25 23:26 1,000 ML Pantoprazole Sodium 40 mg BID IV 01/23/25 22:00 01/29/25 09:32 40 MG Sodium Chloride 1,000 ml @ 200 mls/hr Q5H IV 01/25/25 11:00 Cancel Amiodarone HCl 100 mg Q12HR PO 01/25/25 22:00 01/29/25 09:32 100 MG Midazolam HCl 100 ml @ 1 mls/hr Q24H IV 01/25/25 18:00 01/25/25 21:58 3 MLS/HR Diagnostic Test (Pha) 1 strip IQ4HR 01/28/25 12:00 01/29/25 16:09 1 STRIP Insulin Human Regular IQ4HR SC 01/28/25 12:00 01/29/25 16:09 3 UNITS Hydrocortisone Sodium Succinate 50 mg Q8HR IV 01/28/25 14:00 01/29/25 13:23 50 MG objective General Appearance: Alert, Oriented X3, intubated sedated HEENT: Atraumatic, PERRLA Lungs: Clear to auscultation, Normal air movement Cardiovascular: Normal S1, Normal S2 Abdomen: Normal bowel sounds, Soft, No tenderness, No hepatospenomegaly Musculoskeletal: No c/c/e laboratory and microbiology Laboratory Tests 01/29/25 03:00 Test 01/29/25 03:00 Range/Units Serum Glucose 219 H 74-106 mg/dL Problems(with codes): (1) Blood loss anemia (2) Septic shock (3) N&V (nausea and vomiting) (4) Elevated liver enzymes (5) Toe osteomyelitis, right Prognosis Plan ID consult and recommendations noted Patient is a being followed by podiatry consult and possibly may need surgical intervention for her right toe gangrene Broad-spectrum antibiotics, likely we will need IV meropenem for six weeks CT scan of the right foot when able to be transported Continue conservative management from GI point of view I am going to monitor her labs Continue IV Protonix 40 mg daily Continue tube feedings as tolerated Dietary Evaluation Review Comments: Nutrition Recommendation 1) CCHO 60gm + renal standard diet 2) Nephro-santosh 1 tab daily 3) Lexx 1 pk daily 4) Monitor PO intake, lab values, weight trend, and I/O Expected Outcomes/Goals: To meet >75% estimated needs Wound to improve Fu 3-5 days Plan discussed with: Other ([facility] Nurse) CC Plasma Assessment Blood Product Administration S: [id number] GLORIA SALGADO MD Jan 29, 2025 17:18
--- NOTE | 2025-01-29 22:04 | DVHPN2 ---
Subjective [facility] DOS: 01/29/2025 Patient seen and examined at bedside. Intubated on mechanical ventilator. Overnight events reviewed. Reviewed: Care Plan Changes from previous H/P or p: No Changes Objective Vitals Vital Signs Date Time Temp Pulse Resp B/P (MAP) Pulse Ox O2 Delivery O2 Flow Rate FiO2 01/29/25 20:13 85 22 127/38 (67) 96 60 01/29/25 20:00 Mechanical Ventilator+ 01/29/25 16:00 97.2 97.2 Intake/Output Intake and Output 01/29/25 07:00 Intake Total 683.165 ml Output Total 2800 ml Balance -2116.835 ml Intake Oral 40 ml IV Total 122.165 ml Tube Feeding 521 ml Other 2800 ml # Bowel Movements 3 Exam Gen.: Patient lying in bed in medical ICU. Intubated on mechanical ventilator. Head: Normocephalic, atraumatic. Eyes: PERRLA. Ears: Normal external anatomy. Throat: Endotracheal tube and orogastric tube in place. Neck: Supple, trachea midline. Chest: Transmitted breath sounds bilaterally. Decreased air entry bilaterally. No wheezing. Bibasilar crackles. Cardiovascular: Positive S1, positive S2. Regular rate and rhythm. Abdomen: Positive bowel sounds in all 4 quadrants. Soft, nontender, nondistended. : Lofton in place. Normal external genitalia. Rectal: Deferred. Skin: Warm, dry. Right foot osteomyelitis. Extremities: 2+ radial pulses bilaterally. No lower extremity edema. Neuro: Off sedation General Appearance: mild distress, Other (Intubated) HEENT: Atraumatic, PERRLA Lungs: Clear to auscultation, Normal air movement Cardiovascular: Normal S1, Normal S2 Abdomen: Normal bowel sounds, Soft, No tenderness, No hepatospenomegaly Musculoskeletal: Other (Unable to assess) Neuro: Other (Unable to assess) Skin: Dry, Intact, Other (Right foot necrosis) Psych/Mental Status: Other (Unable to assess) Medications Current Medications Medications Dose Ordered Sig/Seth Route Start Time Stop Time Status Last Admin Dose Admin Acetaminophen 325 mg Q4HP PRN PO 01/10/25 00:30 01/22/25 00:29 325 MG Ondansetron HCl 4 mg Q4HP PRN IV 01/10/25 00:30 01/20/25 16:19 4 MG Atorvastatin Calcium 40 mg HS PO 01/10/25 22:00 01/29/25 21:46 40 MG Levothyroxine Sodium 125 mcg QAM@0600 PO 01/11/25 06:00 01/29/25 05:41 125 MCG Sodium Chloride 10 ml QSHIFT@10,22 IV 01/12/25 22:00 01/29/25 21:46 10 ML Dextrose 50 ml UD PRN IV 01/14/25 14:15 01/24/25 12:10 50 ML Fluconazole 100 mg POSTDI PRN PO 01/15/25 12:45 Cancel Ertapenem 0.5 gm/ Sodium Chloride 50 ml @ 100 mls/hr DAILY IV 01/19/25 10:00 01/29/25 09:33 100 MLS/HR Albumin Human 100 ml @ 100 mls/hr WD PRN IV 01/18/25 21:00 01/26/25 15:05 100 MLS/HR Albuterol 2.5 mg Q4HPRN PRN NEB 01/20/25 16:00 01/29/25 19:10 2.5 MG Vancomycin HCl 0 ml @ 0 mls/hr PER PHARMACY IV 01/21/25 12:15 Cancel Fentanyl Citrate 250 ml @ 2.5 mls/hr Q24H IV 01/23/25 13:45 01/26/25 23:46 2.5 MLS/HR Norepinephrine Bitartrate 32 mg/ Sodium Chloride 250 ml @ 0.938 mls/ hr Q24H IV 01/23/25 14:45 01/25/25 21:57 5.625 MLS/HR Enteral Nutritional Formula 1,000 ml 30ML/HR GT 01/23/25 18:00 01/26/25 23:26 1,000 ML Pantoprazole Sodium 40 mg BID IV 01/23/25 22:00 01/29/25 21:45 40 MG Sodium Chloride 1,000 ml @ 200 mls/hr Q5H IV 01/25/25 11:00 Cancel Amiodarone HCl 100 mg Q12HR PO 01/25/25 22:00 01/29/25 21:45 100 MG Midazolam HCl 100 ml @ 1 mls/hr Q24H IV 01/25/25 18:00 01/25/25 21:58 3 MLS/HR Diagnostic Test (Pha) 1 strip IQ4HR 01/28/25 12:00 01/29/25 20:35 1 STRIP Insulin Human Regular IQ4HR SC 01/28/25 12:00 01/29/25 20:35 3 UNITS Hydrocortisone Sodium Succinate 50 mg Q8HR IV 01/28/25 14:00 01/29/25 21:45 50 MG Laboratory Results Laboratory Tests 01/29/25 03:00 Chemistry Test 01/29/25 03:00 Albumin 2.8 g/dL (3.2-4.8) L Calcium Level 8.4 mg/dL (8.7-10.4) L Total Protein 5.6 g/dL (5.7-8.2) L LFT Test 01/29/25 03:00 Alanine Aminotransferase (ALT) 80 U/L (7-40) H Alkaline Phosphatase 252 U/L (46-116) H Aspartate Amino Transferase (AST) 222 U/L (13-40) H Total Bilirubin 1.0 mg/dL (0.2-1.0) Urinalysis Test 01/10/25 09:18 Urine Color Yellow (Yellow) Urine Clarity Turbid (Clear) H Urine pH 6.5 (5.0-9.0) Urine Specific [place] 1.019 (1.001-1.035) Urine Protein 2+ (Negative) H Urine Ketones Negative (Negative) Urine Blood Negative /uL (Negative) Urine Nitrite Negative (Negative) Urine Bilirubin Negative (Negative) Urine Urobilinogen Normal mg/dL (Negative) Urine Leukocyte Esterase Trace /uL (Negative) Urine RBC 7 /hpf (0 - 4) Urine Microscopic WBC 4 /HPF (0-5) Urine Squamous Epithelial Cells Few /hpf (<5) Urine Bacteria None seen /hpf (None Seen) Urine Yeast (Budding) Moderate /hpf (None Seen) Urine Glucose 1+ mg/dL (Normal) H Blood Gas Results Test 01/29/25 06:39 Arterial Blood pH 7.338 (7.350-7.450) FiO2 % 50.0 Microbiology Microbiology Date/Time Source Procedure Growth Status 01/24/25 10:06 Bronchial Washings Gram Stain - Final Complete 01/24/25 10:06 Bronchial Washings Respiratory Culture - Final Complete 01/23/25 19:15 Blood Blood Culture - Final NO GROWTH AFTER 5 DAYS OF INCUBATION. Complete 01/23/25 09:15 Nose MRSA Screen - Final Complete 01/10/25 09:18 Voided Urine Urine Culture - Final Presumptive Sully albicans Yeast, not Sully albicans Complete Assessment/Plan Assessment/Plan Impression: Acute hypoxic respiratory failure On mechanical ventilator Acute CHF exacerbation End-stage renal disease, on hemodialysis Osteomyelitis Overweight Events: Remains on vent support On AC mode; RR 22, VT 400, PEEP 12, FiO2 70% Increased FiO2 requirements. Taper PEEP and FiO2 as tolerated Patient noted to desaturate with turns. Off sedation ABG reviewed, notable for slight acidemia CXR demonstrates Slight interval decrease in consolidative features of multifocal bilateral pulmonary airspace disease. Pressors for hemodynamic support Levophed 6 mcg/min Titrate to keep mean arterial pressure greater than 65 mmHg. S/p hemodialysis today Continue bronchodilators. Continue antibiotics. Continue IV stress dose steroids, q.8 hours Accu-Cheks, ISS. Hemodialysis per Nephrology Nephrology recs appreciated Monitor renal function Monitor electrolytes. Supplement as necessary. Monitor ins and outs. Tube feeds for nutritional support Remains on high PEEP and FiO2 requirements. Labs and imaging reviewed. Rest of plan as noted below. Plan: s/p intubation on mechanical ventilator. On AC mode; RR 22, VT 400, PEEP 12, FiO2 70% S/p bronchoscopy on 11/24/24 - Results from bronchial washings show no growth. Titrate FIO2 to keep O2 saturation above 90%. VAP bundle. Daily ABG and CXR while intubated Sedate for ventilator synchrony Continue bronchodilators. Continue antibiotics. Follow up cultures. IV steroids Pressors for hemodynamic support Titrate to keep mean arterial pressure greater than 65 mmHg. Wound care. Monitor H&H. Hemodialysis per Nephrology Monitor renal function Monitor electrolytes. Supplement as necessary. Monitor ins and outs. Maintain euvolemia. GI prophylaxis. DVT prophylaxis. Prognosis: Poor given patient's multiple co-morbidities. Condition: Critical Rest of plan per hospitalist and other consultants. A total of 35 minutes of critical care time was spent reviewing the patient record, examining the patient, making a diagnostic and therapeutic plan, discussing this plan with the medical personnel, following up on diagnostic studies and following the patient for clinical stability excluding any and all procedures. At least 50% of this time was spent in direct, [id number] contact. Thank you, Dr. Bowie, for allowing me to participate in this patient's care. Further recommendations will depend on the patient's clinical course. Please do not hesitate to contact me if you have any questions or concerns. This medical document was created using an electronic medical record system with [employer] dictation system. Although these documentations are being carefully reviewed, there may still be some phonetic and typographical changes. The errors are purely typographical, due to imperfection on the software program, and do not reflect any compromise in the patient's medical care. Plan discussed with: Other (ALBERTINA Warner) Visit Coding Pulmonary Billing Provider: ALCON GUTHRIE MD Date of Service if different f: Jan 29, 2025 Common Visit Codes: [id number] INP/OBS CARE(HIGH), [id number] C[facility] 30-74 MIN ALCON GUTHRIE MD Jan 29, 2025 22:04
[2025-01-30] VITALS (104 sets, daily range): BP systolic 96–155; BP diastolic 20–50; PULSE 70–89; RESP 14–28; TEMP 96.6–98.3; O2SAT 89–99
[2025-01-30 03:48] LABS: Hematocrit 29.1 % (36.0-46.0); Hemoglobin 9.6 g/dL (12.2-16.2); Mean Corpuscular Hemoglobin 30.8 pg (28.0-32.0); Mean Corpuscular Volume 93.2 fL (80.0-100.0); Nucleated Red Blood Cells % 0.5 %
[2025-01-30 04:02] LABS: Anion Gap 13 (5-15); BUN/Creatinine Ratio 10.9 (10.0-20.0); Bilirubin, Total 1.0 mg/dL (0.2-1.0); Carbon Dioxide 27 mmol/L (20-31); Chloride 103 mmol/L (98-107); Potassium 3.9 mmol/L (3.5-5.1); Sodium 143 mmol/L (136-145); Total Protein 5.7 g/dL (5.7-8.2)
[2025-01-30 04:10] LABS: Alanine Aminotransferase 74 U/L (7-40); Albumin 2.8 g/dL (3.2-4.8); Alkaline Phosphatase 261 U/L (46-116); Blood Urea Nitrogen 55 mg/dL (9-23); Calcium 8.3 mg/dL (8.7-10.4); Glucose 162 mg/dL (74-106)
[2025-01-30] MEDS: SODIUM CHL 0.9% 1000 ML BAG XX ONE (07:00)
[2025-01-30 07:59] LABS: Base Excess -0.7 mmol/L (-2.0-3.0)
--- NOTE | 2025-01-30 10:53 | DVH ---
EXAM: CT HEAD WITHOUT CONTRAST INDICATION: ALOC TECHNIQUE: CT of the head without intravenous contrast. Radiation Dose : 1. Head: CT Dose: CTDI volume is 56.68 mGy. Dose-length product is 1650.43 mGy*cm The dose indicators for CT are the volume Computed Tomography (CT) Dose Index (CTDIvol) and the Dose Length Product (DLP), and are measured in units of mGy and mGy-cm, respectively. These indicators are not patient dose, but values generated from the CT scanner acquisition factors. The report includes radiation exposure data for exposures received during this examination. COMPARISON: None FINDINGS: There is no evidence of acute intracranial hemorrhage, extra-axial collection, mass effect, midline s hift, herniation or hydrocephalus. The ventricles, sulci and cisterns are age appropriate. The parikh-white differentiation is intact. The visualized paranasal sinuses and mastoid air cells are clear. The surrounding soft tissues and osseous structures are unremarkable. IMPRESSION: No acute intracranial abnormality. Radiation optimization: All CT scans at this facility use at least one of these dose optimization selene hniques: automated exposure control mA and/or kV adjustment per patient size (includes targeted exam s where dose is matched to clinical indication) or iterative reconstruction.
--- NOTE | 2025-01-30 11:09 | DVH ---
Procedure: CT CHEST WITHOUT CONTRAST Reason for study/Clinical History: SOB Comparison Study: XY CHEST PORTABLE on DOS: 01/29/25, XY CHEST PORTABLE on DOS: 01/28/25, XY CHEST XR AY 1 VIEW on DOS: 01/26/25, XY CHEST PORTABLE on DOS: 01/23/25, XY CHEST PORTABLE on DOS: 01/20/25 TECHNIQUE: Multidetector CT of the chest was performed from the lung apices to the upper abdomen with out the use of intravenous contract. Axial, coronal and sagittal multiplanar reformats were performed . Radiation Dose Information: CT Dose: CTDI volume is 19.14 mGy. Dose-length product is 640.27 mGy*cm The dose indicators for CT are the volume Computed Tomography (CT) Dose Index (CTDIvol) and the Dose Length Product (DLP), and are measured in units of mGy and mGy-cm, respectively. These indicators are not patient dose, but values generated from the CT scanner acquisition factors. The report includes radiation exposure data for exposures received during this examination. FINDINGS: Lower neck: Unremarkable. Lungs: Extensive mixed interstitial and ground-glass opacity diffusely throughout both lungs. Diffuse interlobular septal thickening. ET tube tip in the distal trachea. Heart/Vascular Structures: Multichamber cardiac enlargement. Cardiac pacing leads in-situ. Severe co ronary calcifications. Lymph Nodes: No adenopathy Pleura: Trace right-sided pleural effusion. Musculoskeletal: No acute osseous abnormality. Soft tissues: Normal. Upper abdomen: Cirrhotic appearing liver. Small volume of ascites in the upper abdomen. NG tube ent ering the stomach. IMPRESSION: Extensive mixed interstitial and ground-glass opacity throughout both lungs most commonly related to pulmonary edema although ARDS or a widespread viral pneumonia could have a similar appearance. Radiation optimization: All CT scans at this facility use at least one of these dose optimization selene hniques: automated exposure control mA and/or kV adjustment per patient size (includes targeted exam s where dose is matched to clinical indication) or iterative reconstruction.
[2025-01-30 12:26] LABS: INR 1.61 (0.9-1.15); Partial Thromboplastin Time 36.2 SEC (24.5-34.5); Prothrombin Time 16.3 sec (9.3-11.8)
--- NOTE | 2025-01-30 12:35 | DVHPN2 ---
Assessment/Plan Assessment/Plan ICU note 64 F w ESRD on HD davita, NIDDM, HTN transferred from OSH for OM s/p trauma. Found to have significant PAD, s/p angio and stent. Seen with ams, increased WOB and hypotension, decision made with family to intubate. CT showed extensive ARDS. c/w current management. try to swap picc with dual lumen and dc tlc. will have discussion with family to trach once more stable. physical exam intubated, sedated on mech vent b/l coarse rhonchi, thick white sputum on ett s1 s2 rrr abdomen soft trace LE edema labs ekg imaging reviewed assessment and plan acute hypoxic RF req mech vent acute metabolic encephalopathy ESRD on HD acute on chronic systolic HF aspiration PNA? vs fluid overload ARDS? right heart failure HFrEF 20% s/p AICD HLD R foot OM s/p I&D to bone NIDDM now w hypoglycemia hypothyroidism thrombocytopenic anemia CKD positive FOBT c/w mech vent c/w pressor, maintain SBP >90 HD per renal c/w sedation, maintain RAAS -1 to -2 somewhat euvolemic, will hold fluid trend lactate c/w invanz and vanc, ID recc appreciated pulm consult for bronch stress dose steroid hold platelet tf hold insulin, if hypoglycemic d50 start TF reculture podiatry send flu covid diet TF dvt ppx heparin condition critical prognosis poor full code critical care time 45 minutes excluding procedure Plan discussed with: Daughter My Orders Orders - ROBERTO VASQUEZ MD Procedure Category Date Status Time *Podiatry Consult CONS 01/29/25 Transmitted Lakesha(Dv) 14:34 Cover Wound With Foam ROB 01/29/25 In Process Dressing 10:20 Cover Wound With Dry ROB 01/29/25 In Process Dressing 10:[address] 01/30/25 Resulted Chest Without Contrast CT 01/30/25 Resulted * Picc Line Consult CONS 01/30/25 Transmitted 11:32 Covid19 Antigen [facility] 01/30/25 In Process Rapid Influenza A&B LAB 01/30/25 In Process 11:32 Date of Service: Jan 30, 2025 Billing Provider: ROBETRO VASQUEZ MD Common Visit Codes: [id number] CARE 30-74 MIN ROBERTO VASQUEZ MD Jan 30, 2025 12:35
[2025-01-30 13:01] LABS: COVID19 ANTIGEN SOFIA FIA NEGATIVE (NEGATIVE)
--- NOTE | 2025-01-30 13:45 | DVHPN2 ---
Progress Note - Dictate Date Seen: Jan 30, 2025 Medical Necessity Reason Pt with a Central, PICC or Fol: Yes The following are medically ne: Central Line, [place] Catheter Subjective On mechanical ventilation vital signs Vital Sign Date Time Temp Pulse Resp B/P (MAP) Pulse Ox O2 Delivery O2 Flow Rate FiO2 01/30/25 13:15 75 22 104/34 (57) 92 01/30/25 12:00 96.6 96.6 01/30/25 12:00 60 01/30/25 12:00 Mechanical Ventilator+ Total Intake and Output 01/29/25 01/29/25 01/30/25 15:00 23:00 07:00 Intake Total 70.628 ml 294.938 ml 231.252 ml Balance 70.628 ml 294.938 ml 231.252 ml medications Current Medications Medications Dose Ordered Sig/Seth Route Start Time Stop Time Status Last Admin Dose Admin Acetaminophen 325 mg Q4HP PRN PO 01/10/25 00:30 01/22/25 00:29 325 MG Ondansetron HCl 4 mg Q4HP PRN IV 01/10/25 00:30 01/20/25 16:19 4 MG Atorvastatin Calcium 40 mg HS PO 01/10/25 22:00 01/29/25 21:46 40 MG Levothyroxine Sodium 125 mcg QAM@0600 PO 01/11/25 06:00 01/30/25 06:09 125 MCG Sodium Chloride 10 ml QSHIFT@10,22 IV 01/12/25 22:00 01/30/25 09:22 10 ML Dextrose 50 ml UD PRN IV 01/14/25 14:15 01/24/25 12:10 50 ML Fluconazole 100 mg POSTDI PRN PO 01/15/25 12:45 Cancel Ertapenem 0.5 gm/ Sodium Chloride 50 ml @ 100 mls/hr DAILY IV 01/19/25 10:00 01/30/25 09:20 100 MLS/HR Albumin Human 100 ml @ 100 mls/hr WD PRN IV 01/18/25 21:00 01/26/25 15:05 100 MLS/HR Albuterol 2.5 mg Q4HPRN PRN NEB 01/20/25 16:00 01/29/25 22:22 2.5 MG Vancomycin HCl 0 ml @ 0 mls/hr PER PHARMACY IV 01/21/25 12:15 Cancel Fentanyl Citrate 250 ml @ 2.5 mls/hr Q24H IV 01/23/25 13:45 01/26/25 23:46 2.5 MLS/HR Norepinephrine Bitartrate 32 mg/ Sodium Chloride 250 ml @ 0.938 mls/ hr Q24H IV 01/23/25 14:45 01/25/25 21:57 5.625 MLS/HR Enteral Nutritional Formula 1,000 ml 30ML/HR GT 01/23/25 18:00 01/26/25 23:26 1,000 ML Pantoprazole Sodium 40 mg BID IV 01/23/25 22:00 01/30/25 09:21 40 MG Sodium Chloride 1,000 ml @ 200 mls/hr Q5H IV 01/25/25 11:00 Cancel Amiodarone HCl 100 mg Q12HR PO 01/25/25 22:00 01/30/25 09:21 100 MG Midazolam HCl 100 ml @ 1 mls/hr Q24H IV 01/25/25 18:00 01/25/25 21:58 3 MLS/HR Diagnostic Test (Pha) 1 strip IQ4HR 01/28/25 12:00 01/30/25 12:07 1 STRIP Insulin Human Regular IQ4HR SC 01/28/25 12:00 01/30/25 12:10 6 UNITS Hydrocortisone Sodium Succinate 50 mg Q8HR IV 01/28/25 14:00 01/30/25 06:10 50 MG objective intubated and sedated Pulmonary: Diminished breath sounds at bases Cardiovascular S1-S2, no S3 or S4 Abdomen: Bowel sounds positive, soft no rebound tenderness Neurological: intubated and sedated Extremities: Right foot gangrenous laboratory and microbiology Laboratory Tests 01/30/25 03:07 Test 01/30/25 03:07 Range/Units Serum Glucose 162 H 74-106 mg/dL Problem List Problem List ESRD on HD, stable from renal standpoint Acute hypoxic respiratory failure Shock secondary to sepsis Right foot osteomyelitis Pneumonia DM hypothyroidism Leukocytosis Anemia Hyperphosphatemia Secondary hyperparathyroidism Thrombocytopenia Assessment/Plan Continue dialysis on TTS schedule. continue IV abx . Currently on vancomycin and ertapenem Needs new PICC line, ok to place Monitor H/H closely and transfuse prn Prognosis guarded Dietary Evaluation Review Comments: Nutrition Recommendation 1) CCHO 60gm + renal standard diet 2) Nephro-santosh 1 tab daily 3) Lexx 1 pk daily 4) Monitor PO intake, lab values, weight trend, and I/O Expected Outcomes/Goals: To meet >75% estimated needs Wound to improve Fu 3-5 days Plan discussed with: Other CC Plasma Assessment Blood Product Administration S: [id number] NEL MONAHAN MD Jan 30, 2025 13:45
[2025-01-30] MEDS: LIDOCAINE 1% (LOCAL ANESTH.) PF 5ml SDV ID ONE (16:08)
--- NOTE | 2025-01-30 17:40 | DVH ---
CHEST RADIOGRAPH Indication: PICC PLACEMENT Technique: Single frontal view of the chest was obtained Comparison: XY CHEST PORTABLE on DOS: 01/29/25, XY CHEST PORTABLE on DOS: 01/28/25, XY CHEST XRAY 1 V IEW on DOS: 01/26/25 FINDINGS: Lines and Tubes: Endotracheal tube 3.1 cm above the rod. Left internal jugular catheter in place i n the superior vena cava. Enteric tube below the left diaphragm tip not visualized in this study Lungs: No focal consolidation. Pleura: No effusion. No pneumothorax. Cardiomediastinal contours: Unremarkable Bones: No acute osseous abnormality. IMPRESSION: 1. Endotracheal tube in place 3.1 cm above the rod. 2. Internal jugular catheter in place from the left with the tip in the superior vena cava above the right atrium. 3. Enteric tube below the left diaphragm in the stomach. Tip not visualized study. 4. Pacemaker in place with pulse generator over the left chest.
[2025-01-30] MEDS: EPOETIN ALFA-EPBX 10,000 UNIT/1ML VIAL SC ONE (21:00)
--- NOTE | 2025-01-30 23:37 | DVHPN2 ---
Subjective [facility] DOS: 01/30/2025 Patient seen and examined at bedside. Intubated on mechanical ventilator. Overnight events reviewed. Reviewed: Care Plan Changes from previous H/P or p: No Changes Objective Vitals Vital Signs Date Time Temp Pulse Resp B/P (MAP) Pulse Ox O2 Delivery O2 Flow Rate FiO2 01/30/25 22:15 84 22 155/37 (76) 98 60 01/30/25 18:41 Mechanical Ventilator 01/30/25 16:00 98.3 98.3 Intake/Output Intake and Output 01/30/25 07:00 Intake Total 596.818 ml Balance 596.818 ml Intake Oral 40 ml IV Total 97.818 ml Tube Feeding 459 ml # Bowel Movements 4 Exam Gen.: Patient lying in bed in medical ICU. Intubated on mechanical ventilator. Head: Normocephalic, atraumatic. Eyes: PERRLA. Ears: Normal external anatomy. Throat: Endotracheal tube and orogastric tube in place. Neck: Supple, trachea midline. Chest: Transmitted breath sounds bilaterally. Decreased air entry bilaterally. No wheezing. Bibasilar crackles. Cardiovascular: Positive S1, positive S2. Regular rate and rhythm. Abdomen: Positive bowel sounds in all 4 quadrants. Soft, nontender, nondistended. : Lofton in place. Normal external genitalia. Rectal: Deferred. Skin: Warm, dry. Right foot osteomyelitis. Extremities: 2+ radial pulses bilaterally. No lower extremity edema. Neuro: Off sedation General Appearance: mild distress, Other (Intubated) HEENT: Atraumatic, PERRLA Lungs: Clear to auscultation, Other (On vent, transmitted breath sounds bilaterally.) Cardiovascular: Normal S1, Normal S2 Abdomen: Normal bowel sounds, Soft, No tenderness, No hepatospenomegaly Musculoskeletal: Other (Unable to assess) Neuro: Other (Unable to assess) Skin: Dry, Intact, Other (Right foot necrosis) Psych/Mental Status: Other (Unable to assess) Medications Current Medications Medications Dose Ordered Sig/Seth Route Start Time Stop Time Status Last Admin Dose Admin Acetaminophen 325 mg Q4HP PRN PO 01/10/25 00:30 01/22/25 00:29 325 MG Ondansetron HCl 4 mg Q4HP PRN IV 01/10/25 00:30 01/20/25 16:19 4 MG Atorvastatin Calcium 40 mg HS PO 01/10/25 22:00 01/30/25 22:35 40 MG Levothyroxine Sodium 125 mcg QAM@0600 PO 01/11/25 06:00 01/30/25 06:09 125 MCG Sodium Chloride 10 ml QSHIFT@10,22 IV 01/12/25 22:00 01/30/25 22:35 10 ML Dextrose 50 ml UD PRN IV 01/14/25 14:15 01/24/25 12:10 50 ML Fluconazole 100 mg POSTDI PRN PO 01/15/25 12:45 Cancel Ertapenem 0.5 gm/ Sodium Chloride 50 ml @ 100 mls/hr DAILY IV 01/19/25 10:00 01/30/25 09:20 100 MLS/HR Albumin Human 100 ml @ 100 mls/hr WD PRN IV 01/18/25 21:00 01/30/25 20:38 100 MLS/HR Albuterol 2.5 mg Q4HPRN PRN NEB 01/20/25 16:00 01/30/25 22:15 2.5 MG Vancomycin HCl 0 ml @ 0 mls/hr PER PHARMACY IV 01/21/25 12:15 Cancel Fentanyl Citrate 250 ml @ 2.5 mls/hr Q24H IV 01/23/25 13:45 01/26/25 23:46 2.5 MLS/HR Norepinephrine Bitartrate 32 mg/ Sodium Chloride 250 ml @ 0.938 mls/ hr Q24H IV 01/23/25 14:45 01/25/25 21:57 5.625 MLS/HR Enteral Nutritional Formula 1,000 ml 30ML/HR GT 01/23/25 18:00 01/26/25 23:26 1,000 ML Pantoprazole Sodium 40 mg BID IV 01/23/25 22:00 01/30/25 22:35 40 MG Sodium Chloride 1,000 ml @ 200 mls/hr Q5H IV 01/25/25 11:00 Cancel Amiodarone HCl 100 mg Q12HR PO 01/25/25 22:00 01/30/25 22:35 100 MG Midazolam HCl 100 ml @ 1 mls/hr Q24H IV 01/25/25 18:00 01/25/25 21:58 3 MLS/HR Diagnostic Test (Pha) 1 strip IQ4HR 01/28/25 12:00 01/30/25 20:00 1 STRIP Insulin Human Regular IQ4HR SC 01/28/25 12:00 01/30/25 20:00 3 UNITS Hydrocortisone Sodium Succinate 50 mg Q8HR IV 01/28/25 14:00 01/30/25 22:35 50 MG Laboratory Results Laboratory Tests 01/30/25 03:07 Chemistry Test 01/30/25 03:07 Albumin 2.8 g/dL (3.2-4.8) L Calcium Level 8.3 mg/dL (8.7-10.4) L Total Protein 5.7 g/dL (5.7-8.2) Coagulation Test 01/30/25 11:50 Prothrombin Time 16.3 sec (9.3-11.8) H Prothrombin Time INR 1.61 (0.9-1.15) H Activated Partial Thromboplast Time 36.2 SEC (24.5-34.5) H LFT Test 01/30/25 03:07 Alanine Aminotransferase (ALT) 74 U/L (7-40) H Alkaline Phosphatase 261 U/L (46-116) H Aspartate Amino Transferase (AST) 184 U/L (13-40) H Total Bilirubin 1.0 mg/dL (0.2-1.0) Urinalysis Test 01/10/25 09:18 Urine Color Yellow (Yellow) Urine Clarity Turbid (Clear) H Urine pH 6.5 (5.0-9.0) Urine Specific [place] 1.019 (1.001-1.035) Urine Protein 2+ (Negative) H Urine Ketones Negative (Negative) Urine Blood Negative /uL (Negative) Urine Nitrite Negative (Negative) Urine Bilirubin Negative (Negative) Urine Urobilinogen Normal mg/dL (Negative) Urine Leukocyte Esterase Trace /uL (Negative) Urine RBC 7 /hpf (0 - 4) Urine Microscopic WBC 4 /HPF (0-5) Urine Squamous Epithelial Cells Few /hpf (<5) Urine Bacteria None seen /hpf (None Seen) Urine Yeast (Budding) Moderate /hpf (None Seen) Urine Glucose 1+ mg/dL (Normal) H Blood Gas Results Test 01/30/25 07:15 Arterial Blood pH 7.334 (7.350-7.450) FiO2 % 60.0 Microbiology Microbiology Date/Time Source Procedure Growth Status 01/24/25 10:06 Bronchial Washings Gram Stain - Final Complete 01/24/25 10:06 Bronchial Washings Respiratory Culture - Final Complete 01/23/25 19:15 Blood Blood Culture - Final NO GROWTH AFTER 5 DAYS OF INCUBATION. Complete 01/23/25 09:15 Nose MRSA Screen - Final Complete 01/10/25 09:18 Voided Urine Urine Culture - Final Presumptive Sully albicans Yeast, not Sully albicans Complete Assessment/Plan Assessment/Plan Impression: Acute hypoxic respiratory failure On mechanical ventilator Acute CHF exacerbation End-stage renal disease, on hemodialysis Osteomyelitis Overweight Events: Remains on vent support On AC mode; RR 22, VT 400, PEEP 12, FiO2 60% Improved FiO2 requirements. Taper PEEP and FiO2 as tolerated Patient noted to desaturate with turns. Off sedation ABG reviewed, notable for acidemia CT chest reviewed, demonstrates ground-glass opacities/interstitial lung opacities. Pressors for hemodynamic support Levophed 4 mcg/min Titrate to keep mean arterial pressure greater than 65 mmHg. Improving pressor requirements. Hemodialysis today Nephrology recommendations appreciated. Continue bronchodilators. Continue antibiotics. Continue IV stress dose steroids, q.8 hours Accu-Cheks, ISS. Hemodialysis per Nephrology Nephrology recs appreciated Monitor renal function Monitor electrolytes. Supplement as necessary. Monitor ins and outs. Tube feeds for nutritional support DTI sacrum - wound care. Labs and imaging reviewed. Rest of plan as noted below. Plan: s/p intubation on mechanical ventilator. On AC mode; RR 22, VT 400, PEEP 12, FiO2 60% S/p bronchoscopy on 11/24/24 - Results from bronchial washings show no growth. Titrate FIO2 to keep O2 saturation above 90%. VAP bundle. Daily ABG and CXR while intubated Sedate for ventilator synchrony Continue bronchodilators. Continue antibiotics. Follow up cultures. IV steroids Pressors for hemodynamic support Titrate to keep mean arterial pressure greater than 65 mmHg. Wound care. Monitor H&H. Hemodialysis per Nephrology Monitor renal function Monitor electrolytes. Supplement as necessary. Monitor ins and outs. Maintain euvolemia. GI prophylaxis. DVT prophylaxis. Prognosis: Poor given patient's multiple co-morbidities. Condition: Critical Rest of plan per hospitalist and other consultants. A total of 35 minutes of critical care time was spent reviewing the patient record, examining the patient, making a diagnostic and therapeutic plan, discussing this plan with the medical personnel, following up on diagnostic studies and following the patient for clinical stability excluding any and all procedures. At least 50% of this time was spent in direct, [id number] contact. Thank you, Dr. Bowie, for allowing me to participate in this patient's care. Further recommendations will depend on the patient's clinical course. Please do not hesitate to contact me if you have any questions or concerns. This medical document was created using an electronic medical record system with UpDown dictation system. Although these documentations are being carefully reviewed, there may still be some phonetic and typographical changes. The errors are purely typographical, due to imperfection on the software program, and do not reflect any compromise in the patient's medical care. Plan discussed with: Other (ALBERTINA Warner/Ramiro) My Orders Orders - ALCON GUTHRIE MD Procedure Category Date Status Time Abg W/ Co-Ox RT 01/30/25 Logged 06:00 Visit Coding Pulmonary Billing Provider: ALCON GUTHRIE MD Date of Service if different f: Jan 30, 2025 Common Visit Codes: [id number] INP/OBS CARE(HIGH), [id number] CARE 30-74 MIN ALCON GUTHRIE MD Jan 30, 2025 23:37
[2025-01-31] VITALS (109 sets, daily range): BP systolic 93–155; BP diastolic 17–76; PULSE 72–100; RESP 12–30; TEMP 97.9–99.1; O2SAT 86–100
[2025-01-31 04:20] LABS: Hematocrit 28.9 % (36.0-46.0); Hemoglobin 9.5 g/dL (12.2-16.2); Mean Corpuscular Hemoglobin 30.8 pg (28.0-32.0); Mean Corpuscular Volume 93.5 fL (80.0-100.0); Nucleated Red Blood Cells % 0.3 %
[2025-01-31 04:32] LABS: Chloride 106 mmol/L (98-107); Potassium 3.9 mmol/L (3.5-5.1)
[2025-01-31 04:33] LABS: Anion Gap 12 (5-15); Carbon Dioxide 28 mmol/L (20-31)
[2025-01-31 04:34] LABS: Calcium 8.9 mg/dL (8.7-10.4)
[2025-01-31 04:35] LABS: Sodium 146 mmol/L (136-145)
[2025-01-31 04:39] LABS: BUN/Creatinine Ratio 12.3 (10.0-20.0); Magnesium 2.4 mg/dL (1.6-2.6)
[2025-01-31 04:41] LABS: Blood Urea Nitrogen 41 mg/dL (9-23); Glucose 153 mg/dL (74-106)
[2025-01-31 08:32] LABS: Base Excess 1.1 mmol/L (-2.0-3.0)
--- NOTE | 2025-01-31 11:36 | DVHPN2 ---
Assessment/Plan Assessment/Plan ICU note 64 F w ESRD on HD [facility], NIDDM, HTN transferred from OSH for OM s/p trauma. Found to have significant PAD, s/p angio and stent. Seen with ams, increased WOB and hypotension, decision made with family to intubate. discussed w family re trach if mroe stable. in the mean time, now off pressors, still on high peep. physical exam intubated, sedated on mech vent b/l coarse rhonchi, thick white sputum on ett s1 s2 rrr abdomen soft trace LE edema labs ekg imaging reviewed assessment and plan acute hypoxic RF req mech vent acute metabolic encephalopathy ESRD on HD acute on chronic systolic HF aspiration PNA? vs fluid overload ARDS? right heart failure HFrEF 20% s/p AICD HLD R foot OM s/p I&D to bone NIDDM now w hypoglycemia hypothyroidism thrombocytopenic anemia CKD positive FOBT c/w mech vent c/w pressor, maintain SBP >90 HD per renal c/w sedation, maintain RAAS -1 to -2 somewhat euvolemic, will hold fluid trend lactate c/w invanz and vanc, ID recc appreciated pulm consult for bronch stress dose steroid hold platelet tf hold insulin, if hypoglycemic d50 start TF reculture podiatry send flu covid diet TF dvt ppx heparin condition critical prognosis poor full code critical care time 45 minutes excluding procedure Plan discussed with: Daughter My Orders Orders - ROBERTO VASQUEZ MD Procedure Category Date Status Time * Picc Line Consult CONS 01/30/25 Transmitted 11:32 Routine Bacterial REINALDO 01/30/25 Uncollected Culture 13:03 Npo (Nothing By DIET 01/30/25 Transmitted Mouth) Diet Lunch Chest Portable XY 01/30/25 Resulted 13:55 Date of Service: Jan 31, 2025 Billing Provider: ROBERTO VASQUEZ MD Common Visit Codes: [id number] CARE 30-74 MIN ROBERTO VASQUEZ MD Jan 31, 2025 11:36
--- NOTE | 2025-01-31 16:27 | DVH ---
LEFT Upper Extremity Venous Duplex Clinical History: r/o DVT Comparison: US BILAT LOW EXT ART DUPLEX on DOS: 01/10/25, ECHO 2D MODE CARDIAC DOP on DOS: 01/10/25 Technique: Duplex Doppler evaluation of the venous system of the LEFT lower neck and upper extremity including color Doppler and spectral/pulsed waveform analysis was performed. Findings: The internal jugular vein is suboptimally visualized secondary to catheter in place. The subclavian vein is patent on color Doppler evaluation without intraluminal thrombus and demonstra lilia waveform variability. Intraluminal thrombus and noncompressibility is present in the left axillary vein and brachial vein. Midline catheter is present in the brachial vein and visualized in the axillary vein. The basilic vein demonstrates appropriate compressibility and patency on Doppler evaluation. The cephalic vein demonstrates appropriate compressibility and patency on Doppler evaluation. Impression: Deep venous thrombosis in the left axillary and brachial veins. If clinical concern/symptoms persist or worsen, short-interval follow-up study is suggested.
--- NOTE | 2025-01-31 17:11 | DVHPN2 ---
Progress Note - Dictate Date Seen: Jan 31, 2025 Medical Necessity Reason Pt with a Central, PICC or Fol: Yes The following are medically ne: Central Line, [place] Catheter Subjective On mechanical ventilation vital signs Vital Sign Date Time Temp Pulse Resp B/P (MAP) Pulse Ox O2 Delivery O2 Flow Rate FiO2 01/31/25 16:06 88 25 113/37 (62) 92 50 01/31/25 14:00 Mechanical Ventilator+ 01/31/25 12:00 99.1 99.1 Total Intake and Output 01/30/25 01/30/25 01/31/25 15:00 23:00 07:00 Intake Total 57.504 ml 293.190 ml 265.628 ml Output Total 2500 ml Balance 57.504 ml 293.190 ml -2234.372 ml medications Current Medications Medications Dose Ordered Sig/Seth Route Start Time Stop Time Status Last Admin Dose Admin Acetaminophen 325 mg Q4HP PRN PO 01/10/25 00:30 01/22/25 00:29 325 MG Ondansetron HCl 4 mg Q4HP PRN IV 01/10/25 00:30 01/20/25 16:19 4 MG Atorvastatin Calcium 40 mg HS PO 01/10/25 22:00 01/30/25 22:35 40 MG Levothyroxine Sodium 125 mcg QAM@0600 PO 01/11/25 06:00 01/31/25 05:21 125 MCG Sodium Chloride 10 ml QSHIFT@10,22 IV 01/12/25 22:00 01/31/25 08:55 10 ML Dextrose 50 ml UD PRN IV 01/14/25 14:15 01/24/25 12:10 50 ML Fluconazole 100 mg POSTDI PRN PO 01/15/25 12:45 Cancel Ertapenem 0.5 gm/ Sodium Chloride 50 ml @ 100 mls/hr DAILY IV 01/19/25 10:00 01/31/25 08:55 100 MLS/HR Albumin Human 100 ml @ 100 mls/hr WD PRN IV 01/18/25 21:00 01/30/25 20:38 100 MLS/HR Albuterol 2.5 mg Q4HPRN PRN NEB 01/20/25 16:00 01/31/25 02:30 2.5 MG Vancomycin HCl 0 ml @ 0 mls/hr PER PHARMACY IV 01/21/25 12:15 Cancel Fentanyl Citrate 250 ml @ 2.5 mls/hr Q24H IV 01/23/25 13:45 01/31/25 10:01 2.5 MLS/HR Norepinephrine Bitartrate 32 mg/ Sodium Chloride 250 ml @ 0.938 mls/ hr Q24H IV 01/23/25 14:45 01/25/25 21:57 5.625 MLS/HR Enteral Nutritional Formula 1,000 ml 30ML/HR GT 01/23/25 18:00 01/26/25 23:26 1,000 ML Pantoprazole Sodium 40 mg BID IV 01/23/25 22:00 01/31/25 08:55 40 MG Sodium Chloride 1,000 ml @ 200 mls/hr Q5H IV 01/25/25 11:00 Cancel Amiodarone HCl 100 mg Q12HR PO 01/25/25 22:00 01/31/25 08:55 100 MG Midazolam HCl 100 ml @ 1 mls/hr Q24H IV 01/25/25 18:00 01/25/25 21:58 3 MLS/HR Diagnostic Test (Pha) 1 strip IQ4HR 01/28/25 12:00 01/31/25 15:51 1 STRIP Insulin Human Regular IQ4HR SC 01/28/25 12:00 01/31/25 04:58 2 UNITS Hydrocortisone Sodium Succinate 50 mg Q8HR IV 01/28/25 14:00 01/31/25 14:07 50 MG objective intubated and sedated Pulmonary: Diminished breath sounds at bases Cardiovascular S1-S2, no S3 or S4 Abdomen: Bowel sounds positive, soft no rebound tenderness Neurological: intubated and sedated Extremities: Right foot gangrenous, trace edema laboratory and microbiology Laboratory Tests 01/31/25 03:47 Test 01/31/25 03:47 Range/Units Serum Glucose 153 H 74-106 mg/dL Problem List Problem List ESRD on HD, stable from renal standpoint Acute hypoxic respiratory failure Shock secondary to sepsis Right foot osteomyelitis Pneumonia DM hypothyroidism Leukocytosis Anemia Hyperphosphatemia Secondary hyperparathyroidism Thrombocytopenia Assessment/Plan Continue dialysis on TTS schedule. Will increase UF goal continue IV abx . Currently on vancomycin and ertapenem Needs new PICC line, ok to place Monitor H/H closely and transfuse prn Prognosis guarded Dietary Evaluation Review Comments: Nutrition Recommendation 1) CCHO 60gm + renal standard diet 2) Nephro-santosh 1 tab daily 3) Lexx 1 pk daily 4) Monitor PO intake, lab values, weight trend, and I/O Expected Outcomes/Goals: To meet >75% estimated needs Wound to improve Fu 3-5 days Plan discussed with: Other CC Plasma Assessment Blood Product Administration S: [id number] NEL MONAHAN MD Jan 31, 2025 17:11
[2025-01-31] MEDS: LIDOCAINE 1% (LOCAL ANESTH.) PF 5ml SDV ID ONE (18:30)
--- NOTE | 2025-01-31 18:48 | DVHPN2 ---
Progress Note Date Seen: Jan 31, 2025 Resident Creating Document: MERLY THAKUR RESIDENT Medical Necessity Reason Pt with a Central, PICC or Fol: Yes The following are medically ne: Central Line, [place] Catheter Subjective Review of Systems Seen and examined with the bedside Continues to be on mechanical ventilation and sedated H&H is stable Has a flexi Seal and having loose bowel movements Objective vital signs Vital Sign Date Time Temp Pulse Resp B/P (MAP) Pulse Ox O2 Delivery O2 Flow Rate FiO2 01/31/25 18:30 87 22 133/40 (71) 93 01/31/25 18:21 60 01/31/25 18:00 Mechanical Ventilator+ 01/31/25 12:00 99.1 99.1 Total Intake and Output 01/30/25 01/30/25 01/31/25 15:00 23:00 07:00 Intake Total 57.504 ml 293.190 ml 265.628 ml Output Total 2500 ml Balance 57.504 ml 293.190 ml -2234.372 ml medications Current Medications Medications Dose Ordered Sig/Seth Route Start Time Stop Time Status Last Admin Dose Admin Acetaminophen 325 mg Q4HP PRN PO 01/10/25 00:30 01/22/25 00:29 325 MG Ondansetron HCl 4 mg Q4HP PRN IV 01/10/25 00:30 01/20/25 16:19 4 MG Atorvastatin Calcium 40 mg HS PO 01/10/25 22:00 01/30/25 22:35 40 MG Levothyroxine Sodium 125 mcg QAM@0600 PO 01/11/25 06:00 01/31/25 05:21 125 MCG Sodium Chloride 10 ml QSHIFT@ IV 01/12/25 22:00 01/31/25 08:55 10 ML Dextrose 50 ml UD PRN IV 01/14/25 14:15 01/24/25 12:10 50 ML Fluconazole 100 mg POSTDI PRN PO 01/15/25 12:45 Cancel Ertapenem 0.5 gm/ Sodium Chloride 50 ml @ 100 mls/hr DAILY IV 01/19/25 10:00 01/31/25 08:55 100 MLS/HR Albumin Human 100 ml @ 100 mls/hr WD PRN IV 01/18/25 21:00 01/30/25 20:38 100 MLS/HR Albuterol 2.5 mg Q4HPRN PRN NEB 01/20/25 16:00 01/31/25 02:30 2.5 MG Vancomycin HCl 0 ml @ 0 mls/hr PER PHARMACY IV 01/21/25 12:15 Cancel Fentanyl Citrate 250 ml @ 2.5 mls/hr Q24H IV 01/23/25 13:45 01/31/25 10:01 2.5 MLS/HR Norepinephrine Bitartrate 32 mg/ Sodium Chloride 250 ml @ 0.938 mls/ hr Q24H IV 01/23/25 14:45 01/25/25 21:57 5.625 MLS/HR Enteral Nutritional Formula 1,000 ml 30ML/HR GT 01/23/25 18:00 01/26/25 23:26 1,000 ML Pantoprazole Sodium 40 mg BID IV 01/23/25 22:00 01/31/25 08:55 40 MG Sodium Chloride 1,000 ml @ 200 mls/hr Q5H IV 01/25/25 11:00 Cancel Amiodarone HCl 100 mg Q12HR PO 01/25/25 22:00 01/31/25 08:55 100 MG Midazolam HCl 100 ml @ 1 mls/hr Q24H IV 01/25/25 18:00 01/25/25 21:58 3 MLS/HR Diagnostic Test (Pha) 1 strip IQ4HR 01/28/25 12:00 01/31/25 15:51 1 STRIP Insulin Human Regular IQ4HR SC 01/28/25 12:00 01/31/25 04:58 2 UNITS Hydrocortisone Sodium Succinate 50 mg Q8HR IV 01/28/25 14:00 01/31/25 14:07 50 MG Examination Gen - no pallor, no scleral icterus Skin - Patients skin is warm and dry. HEENT - normocephalic, atraumatic, dry mucous membranes. Neck - supple, no lymphadenopathy Pulmonary - decreased breath sounds on the left side cardiovascular - regular S1,S2 heard GI - soft abdomen. Bowel sounds hypoactive. Neurological - sedated and on mechanical ventilation laboratory and microbiology Laboratory Tests 01/31/25 03:47 Test 01/31/25 03:47 Range/Units Serum Glucose 153 H 74-106 mg/dL Microbiology Date/Time Source Procedure Growth Status 01/24/25 10:06 Bronchial Washings Gram Stain - Final Complete 01/24/25 10:06 Bronchial Washings Respiratory Culture - Final Complete 01/23/25 19:15 Blood Blood Culture - Final NO GROWTH AFTER 5 DAYS OF INCUBATION. Complete 01/23/25 09:15 Nose MRSA Screen - Final Complete 01/10/25 09:18 Voided Urine Urine Culture - Final Presumptive Sully albicans Yeast, not Sully albicans Complete Problem List/Assessment/Plan Problem List/Assessment/Plan Assessment Possible GI bleed Sepsis likely from osteomyelitis Acute on chronic systolic heart failure Thrombocytopenia Coagulopathy PAT on CKD likely due to VMN Plan - Protonix 40 mg IV b.i.d. - once the patient is hemodynamically stable, she may benefit from EGD - watch H&H, currently stable - feeding through NG tube, check residuals qshift Poor prognosis given the patient is critically sick with pneumonia/ARDS Plan discussed with Dr. Soto Plan discussed with: Other (ALBERTINA Rosenberg) Dietary Evaluation Review Comments: Nutrition Recommendation 1) CCHO 60gm + renal standard diet 2) Nephro-santosh 1 tab daily 3) Lexx 1 pk daily 4) Monitor PO intake, lab values, weight trend, and I/O Expected Outcomes/Goals: To meet >75% estimated needs Wound to improve Fu 3-5 days CC Plasma Assessment Blood Product Administration S: [id number] MERLY THAKUR RESIDENT Jan 31, 2025 18:48
--- NOTE | 2025-01-31 19:08 | DVH ---
Date: 01/31/2025 06:28 PM Examination: XY KUB ABDOMEN SINGLE VIEW History: S/P LEFT LOWER EXTREMITY PICC LINE PLACEMENT Comparison: None TECHNIQUE: Frontal views of the abdomen was obtained. FINDINGS: Bowel gas pattern is unremarkable. PICC line in place on the left femoral vein with the tip at T12-L1 on the right. The lung bases are unremarkable. No acute osseous abnormality identified. IMPRESSION: 1. PICC line in place in the left femoral vein. It appears that is over the left l T12-L1 region. 2. The patient is oblique to the right which May alter true anatomic position.
--- NOTE | 2025-01-31 22:11 | DVHPN2 ---
Consult Progress Note Objective vital signs Vital Sign Date Time Temp Pulse Resp B/P (MAP) Pulse Ox O2 Delivery O2 Flow Rate FiO2 01/31/25 21:45 82 22 120/30 (60) 94 01/31/25 20:18 60 01/31/25 20:00 98.3 98.3 01/31/25 20:00 Mechanical Ventilator+ Total Intake and Output 01/30/25 01/30/25 01/31/25 15:00 23:00 07:00 Intake Total 57.504 ml 293.190 ml 265.628 ml Output Total 2500 ml Balance 57.504 ml 293.190 ml -2234.372 ml medications Current Medications Medications Dose Ordered Sig/Seth Route Start Time Stop Time Status Last Admin Dose Admin Acetaminophen 325 mg Q4HP PRN PO 01/10/25 00:30 01/22/25 00:29 325 MG Ondansetron HCl 4 mg Q4HP PRN IV 01/10/25 00:30 01/20/25 16:19 4 MG Atorvastatin Calcium 40 mg HS PO 01/10/25 22:00 01/30/25 22:35 40 MG Levothyroxine Sodium 125 mcg QAM@0600 PO 01/11/25 06:00 01/31/25 05:21 125 MCG Sodium Chloride 10 ml QSHIFT@10,22 IV 01/12/25 22:00 01/31/25 08:55 10 ML Dextrose 50 ml UD PRN IV 01/14/25 14:15 01/24/25 12:10 50 ML Fluconazole 100 mg POSTDI PRN PO 01/15/25 12:45 Cancel Ertapenem 0.5 gm/ Sodium Chloride 50 ml @ 100 mls/hr DAILY IV 01/19/25 10:00 01/31/25 08:55 100 MLS/HR Albumin Human 100 ml @ 100 mls/hr WD PRN IV 01/18/25 21:00 01/30/25 20:38 100 MLS/HR Albuterol 2.5 mg Q4HPRN PRN NEB 01/20/25 16:00 01/31/25 02:30 2.5 MG Vancomycin HCl 0 ml @ 0 mls/hr PER PHARMACY IV 01/21/25 12:15 Cancel Fentanyl Citrate 250 ml @ 2.5 mls/hr Q24H IV 01/23/25 13:45 01/31/25 10:01 2.5 MLS/HR Norepinephrine Bitartrate 32 mg/ Sodium Chloride 250 ml @ 0.938 mls/ hr Q24H IV 01/23/25 14:45 01/25/25 21:57 5.625 MLS/HR Enteral Nutritional Formula 1,000 ml 30ML/HR GT 01/23/25 18:00 01/26/25 23:26 1,000 ML Pantoprazole Sodium 40 mg BID IV 01/23/25 22:00 01/31/25 08:55 40 MG Sodium Chloride 1,000 ml @ 200 mls/hr Q5H IV 01/25/25 11:00 Cancel Amiodarone HCl 100 mg Q12HR PO 01/25/25 22:00 01/31/25 08:55 100 MG Midazolam HCl 100 ml @ 1 mls/hr Q24H IV 01/25/25 18:00 01/25/25 21:58 3 MLS/HR Diagnostic Test (Pha) 1 strip IQ4HR 01/28/25 12:00 01/31/25 20:29 1 STRIP Insulin Human Regular IQ4HR SC 01/28/25 12:00 01/31/25 19:59 2 UNITS Hydrocortisone Sodium Succinate 50 mg Q8HR IV 01/28/25 14:00 01/31/25 14:07 50 MG laboratory and microbiology Laboratory Tests 01/31/25 03:47 Test 01/31/25 03:47 Range/Units Serum Glucose 153 H 74-106 mg/dL Problem List/Assessment/Plan Problem List/Assessment/Plan influenza a, covid, rsv negative BAL culture and blood cultures negative mrsa nares negative vancomycin trough therapuetic, levophed ongoing and high vent needs = levophed 4, fio2 70%, cardiology notes patient is off DAPT and at risk for instent thrombosis Plans: copd and chf exacerbation per cardiology and pulmonology team leukocytosis related to hydrocortisone use consider CT R foot to evaluate for abscess or hematoma when more clinically stable 6 weeks ertapenem anticipated. dialysis as tolerated maps>65 Dietary Evaluation Review Comments: Nutrition Recommendation 1) CCHO 60gm + renal standard diet 2) Nephro-santosh 1 tab daily 3) Lexx 1 pk daily 4) Monitor PO intake, lab values, weight trend, and I/O Expected Outcomes/Goals: To meet >75% estimated needs Wound to improve Fu 3-5 days CC Plasma Assessment Blood Product Administration S: [id number] CONY TAYLOR MD Jan 31, 2025 22:11
--- NOTE | 2025-01-31 23:09 | DVHPN2 ---
[place] [facility] [place] Patient seen and examined at bedside. Intubated on mechanical ventilator. Overnight events reviewed. Reviewed: Care Plan Changes from previous H/P or p: No Changes Objective Vitals Vital Signs Date Time Temp Pulse Resp B/P (MAP) Pulse Ox O2 Delivery O2 Flow Rate FiO2 01/31/25 22:17 78 22 113/26 (55) 99 50 01/31/25 20:00 98.3 98.3 01/31/25 20:00 Mechanical Ventilator+ Intake/Output Intake and Output 01/31/25 07:00 Intake Total 616.322 ml Output Total 2500 ml Balance -1883.678 ml Intake Oral 60 ml IV Total 75.322 ml Tube Feeding 481 ml Other 2500 ml # Bowel Movements 3 Exam Gen.: Patient lying in bed in medical ICU. Intubated on mechanical ventilator. Head: Normocephalic, atraumatic. Eyes: PERRLA. Ears: Normal external anatomy. Throat: Endotracheal tube and orogastric tube in place. Neck: Supple, trachea midline. Chest: Transmitted breath sounds bilaterally. Decreased air entry bilaterally. No wheezing. Bibasilar crackles. Cardiovascular: Positive S1, positive S2. Regular rate and rhythm. Abdomen: Positive bowel sounds in all 4 quadrants. Soft, nontender, nondistended. : Lofton in place. Normal external genitalia. Rectal: Deferred. Skin: Warm, dry. Right foot osteomyelitis. Extremities: 2+ radial pulses bilaterally. No lower extremity edema. Neuro: Off sedation General Appearance: mild distress, Other (Intubated) HEENT: Atraumatic, PERRLA Lungs: Clear to auscultation, Other (On vent, transmitted breath sounds bilaterally.) Cardiovascular: Normal S1, Normal S2 Abdomen: Normal bowel sounds, Soft, No tenderness, No hepatospenomegaly Musculoskeletal: Other (Unable to assess) Neuro: Other (Unable to assess) Skin: Dry, Intact, Other (Right foot necrosis) Psych/Mental Status: Other (Unable to assess) Medications Current Medications Medications Dose Ordered Sig/Seth Route Start Time Stop Time Status Last Admin Dose Admin Acetaminophen 325 mg Q4HP PRN PO 01/10/25 00:30 01/22/25 00:29 325 MG Ondansetron HCl 4 mg Q4HP PRN IV 01/10/25 00:30 01/20/25 16:19 4 MG Atorvastatin Calcium 40 mg HS PO 01/10/25 22:00 01/31/25 22:25 40 MG Levothyroxine Sodium 125 mcg QAM@0600 PO 01/11/25 06:00 01/31/25 05:21 125 MCG Sodium Chloride 10 ml QSHIFT@10,22 IV 01/12/25 22:00 01/31/25 22:25 10 ML Dextrose 50 ml UD PRN IV 01/14/25 14:15 01/24/25 12:10 50 ML Fluconazole 100 mg POSTDI PRN PO 01/15/25 12:45 Cancel Ertapenem 0.5 gm/ Sodium Chloride 50 ml @ 100 mls/hr DAILY IV 01/19/25 10:00 01/31/25 08:55 100 MLS/HR Albumin Human 100 ml @ 100 mls/hr WD PRN IV 01/18/25 21:00 01/30/25 20:38 100 MLS/HR Albuterol 2.5 mg Q4HPRN PRN NEB 01/20/25 16:00 01/31/25 02:30 2.5 MG Vancomycin HCl 0 ml @ 0 mls/hr PER PHARMACY IV 01/21/25 12:15 Cancel Fentanyl Citrate 250 ml @ 2.5 mls/hr Q24H IV 01/23/25 13:45 01/31/25 10:01 2.5 MLS/HR Norepinephrine Bitartrate 32 mg/ Sodium Chloride 250 ml @ 0.938 mls/ hr Q24H IV 01/23/25 14:45 01/25/25 21:57 5.625 MLS/HR Enteral Nutritional Formula 1,000 ml 30ML/HR GT 01/23/25 18:00 01/26/25 23:26 1,000 ML Pantoprazole Sodium 40 mg BID IV 01/23/25 22:00 01/31/25 22:25 40 MG Sodium Chloride 1,000 ml @ 200 mls/hr Q5H IV 01/25/25 11:00 Cancel Amiodarone HCl 100 mg Q12HR PO 01/25/25 22:00 01/31/25 22:25 100 MG Midazolam HCl 100 ml @ 1 mls/hr Q24H IV 01/25/25 18:00 01/25/25 21:58 3 MLS/HR Diagnostic Test (Pha) 1 strip IQ4HR 01/28/25 12:00 01/31/25 20:29 1 STRIP Insulin Human Regular IQ4HR SC 01/28/25 12:00 01/31/25 19:59 2 UNITS Hydrocortisone Sodium Succinate 50 mg Q8HR IV 01/28/25 14:00 01/31/25 22:25 50 MG Heparin Sodium/ Dextrose 250 ml @ 11.826 mls/ hr Q21H9M IV 01/31/25 23:00 UNV Laboratory Results Laboratory Tests 01/31/25 03:47 Chemistry Test 01/31/25 03:47 Calcium Level 8.9 mg/dL (8.7-10.4) Magnesium Level 2.4 mg/dL (1.6-2.6) Phosphorus Level 2.6 mg/dL (2.4-5.1) Urinalysis Test 01/10/25 09:18 Urine Color Yellow (Yellow) Urine Clarity Turbid (Clear) H Urine pH 6.5 (5.0-9.0) Urine Specific [place] 1.019 (1.001-1.035) Urine Protein 2+ (Negative) H Urine Ketones Negative (Negative) Urine Blood Negative /uL (Negative) Urine Nitrite Negative (Negative) Urine Bilirubin Negative (Negative) Urine Urobilinogen Normal mg/dL (Negative) Urine Leukocyte Esterase Trace /uL (Negative) Urine RBC 7 /hpf (0 - 4) Urine Microscopic WBC 4 /HPF (0-5) Urine Squamous Epithelial Cells Few /hpf (<5) Urine Bacteria None seen /hpf (None Seen) Urine Yeast (Budding) Moderate /hpf (None Seen) Urine Glucose 1+ mg/dL (Normal) H Blood Gas Results Test 01/31/25 07:46 Arterial Blood pH 7.405 (7.350-7.450) FiO2 % 60.0 Microbiology Microbiology Date/Time Source Procedure Growth Status 01/24/25 10:06 Bronchial Washings Gram Stain - Final Complete 01/24/25 10:06 Bronchial Washings Respiratory Culture - Final Complete 01/23/25 19:15 Blood Blood Culture - Final NO GROWTH AFTER 5 DAYS OF INCUBATION. Complete 01/23/25 09:15 Nose MRSA Screen - Final Complete 01/10/25 09:18 Voided Urine Urine Culture - Final Presumptive Sully albicans Yeast, not Sully albicans Complete Assessment/Plan Assessment/Plan Impression: Acute hypoxic respiratory failure On mechanical ventilator Acute CHF exacerbation End-stage renal disease, on hemodialysis Osteomyelitis Overweight Events: Remains on vent support On AC mode; RR 22, VT 400, PEEP 12, FiO2 50% Improved FiO2 requirements. Taper PEEP and FiO2 as tolerated Patient noted to desaturate with turns. Off sedation On Fentanyl drip ABG reviewed, compensated CXR shows no focal consolidation. Devices in place. CT chest demonstrates ground-glass opacities/interstitial lung opacities. Left upper extremity venous duplex reveals DVT in left axillary and brachial veins. Start heparin drip per Pharmacy Off Levophed, hemodynamically stable. Evaluate for PICC line placement Hemodialysis per Nephrology - s/p HD yesterday Nephrology recommendations appreciated. Continue bronchodilators. Continue antibiotics. Continue IV stress dose steroids, q.8 hours Accu-Cheks, ISS. Hemodialysis per Nephrology Nephrology recs appreciated Monitor renal function Monitor electrolytes. Supplement as necessary. Monitor ins and outs. Tube feeds for nutritional support DTI sacrum - wound care. Labs and imaging reviewed. Rest of plan as noted below. Plan: s/p intubation on mechanical ventilator. On AC mode; RR 22, VT 400, PEEP 12, FiO2 50% S/p bronchoscopy on 11/24/24 - Results from bronchial washings show no growth. Titrate FIO2 to keep O2 saturation above 90%. VAP bundle. Daily ABG and CXR while intubated Continue bronchodilators. Continue antibiotics. Follow up cultures. IV steroids Pressors for hemodynamic support Titrate to keep mean arterial pressure greater than 65 mmHg. Wound care. Monitor H&H. Hemodialysis per Nephrology Monitor renal function Monitor electrolytes. Supplement as necessary. Monitor ins and outs. Maintain euvolemia. GI prophylaxis. DVT prophylaxis. Prognosis: Poor given patient's multiple co-morbidities. Condition: Critical Rest of plan per hospitalist and other consultants. A total of 35 minutes of critical care time was spent reviewing the patient record, examining the patient, making a diagnostic and therapeutic plan, discussing this plan with the medical personnel, following up on diagnostic studies and following the patient for clinical stability excluding any and all procedures. At least 50% of this time was spent in direct, [id number] contact. Thank you, Dr. Bowie, for allowing me to participate in this patient's care. Further recommendations will depend on the patient's clinical course. Please do not hesitate to contact me if you have any questions or concerns. This medical document was created using an electronic medical record system with [employer] dictation system. Although these documentations are being carefully reviewed, there may still be some phonetic and typographical changes. The errors are purely typographical, due to imperfection on the software program, and do not reflect any compromise in the patient's medical care. Plan discussed with: Other (RN) My Orders Orders - ALCON GUTHRIE MD Procedure Category Date Status Time Abg W/ Co-Ox RT 01/31/25 Logged 06:00 Heparin Per Pharmacy [facility] 01/31/25 In Process Protocol 17:03 Platelet Monitoring [facility] 01/31/25 In Process 22:50 Vte Protocol Initiated [facility] 01/31/25 In Process 22:50 Heparin Per [facility] 01/31/25 In Process Standardized Proce 22:50 Discontinue All Im [facility] 01/31/25 In Process Injections 22:50 PTPTT LAB 01/31/25 Logged 22:50 Complete Blood Count LAB 01/31/25 Logged 22:50 Heparin Sodium [facility] 01/31/25 Logged (Porcine) 23:00 Heparin Drip/D5w [facility]A 01/31/25 Logged 100units/Ml 23:00 Visit Coding Pulmonary Billing Provider: ALCON GUTHRIE MD Date of Service if different f: Jan 31, 2025 Common Visit Codes: [id number] INP/OBS CARE(HIGH), [id number] CARE 30-74 MIN ALCON GUTHRIE MD Jan 31, 2025 23:09
[2025-02-01] VITALS (116 sets, daily range): BP systolic 64–172; BP diastolic 12–97; PULSE 70–110; RESP 10–26; TEMP 97.7–99.5; O2SAT 89–99
[2025-02-01] MEDS: HEPARIN SODIUM (PORCINE) 5000 UNITS/ML 1ML VIAL IV ONE ×2 (00:22→00:26)
[2025-02-01] MEDS: HEPARIN DRIP/D5W 100UNITS/ML 250 ML IV SCH (00:23)
[2025-02-01 00:48] LABS: Hematocrit 23.9 % (36.0-46.0); Hemoglobin 7.7 g/dL (12.2-16.2)
[2025-02-01 00:50] LABS: Mean Corpuscular Hemoglobin 30.8 pg (28.0-32.0); Mean Corpuscular Volume 95.7 fL (80.0-100.0); Nucleated Red Blood Cells % 0.4 %
[2025-02-01 00:59] LABS: INR 1.59 (0.9-1.15); Partial Thromboplastin Time 33.9 SEC (24.5-34.5); Prothrombin Time 16.1 sec (9.3-11.8)
[2025-02-01 03:33] LABS: Hemoglobin 7.6 g/dL (12.2-16.2)
[2025-02-01 03:35] LABS: Hematocrit 22.9 % (36.0-46.0); Mean Corpuscular Hemoglobin 31.1 pg (28.0-32.0); Mean Corpuscular Volume 94.2 fL (80.0-100.0); Nucleated Red Blood Cells % 0.2 %
[2025-02-01 03:45] LABS: Chloride 107 mmol/L (98-107); Potassium 3.8 mmol/L (3.5-5.1)
[2025-02-01 03:46] LABS: Anion Gap 11 (5-15); Carbon Dioxide 29 mmol/L (20-31)
[2025-02-01 03:51] LABS: BUN/Creatinine Ratio 15.4 (10.0-20.0)
[2025-02-01 03:52] LABS: Magnesium 2.5 mg/dL (1.6-2.6)
[2025-02-01 03:57] LABS: Blood Urea Nitrogen 68 mg/dL (9-23); Calcium 8.5 mg/dL (8.7-10.4); Glucose 184 mg/dL (74-106); Sodium 147 mmol/L (136-145)
[2025-02-01 07:19] LABS: Base Excess 0.3 mmol/L (-2.0-3.0)
[2025-02-01 09:31] LABS: INR 1.76 (0.9-1.15); Prothrombin Time 17.6 sec (9.3-11.8)
[2025-02-01 09:46] LABS: Partial Thromboplastin Time > 139.0 SEC (24.5-34.5)
[2025-02-01 11:05] LABS: INR 1.69 (0.9-1.15); Prothrombin Time 17.0 sec (9.3-11.8)
[2025-02-01 11:07] LABS: Partial Thromboplastin Time > 139.0 SEC (24.5-34.5)
[2025-02-01 13:23] LABS: Chloride 107 mmol/L (98-107); Hematocrit 21.2 % (36.0-46.0); Mean Corpuscular Hemoglobin 30.8 pg (28.0-32.0); Mean Corpuscular Volume 96.2 fL (80.0-100.0); Potassium 3.8 mmol/L (3.5-5.1)
[2025-02-01 13:24] LABS: Anion Gap 10 (5-15); Carbon Dioxide 31 mmol/L (20-31)
[2025-02-01 13:25] LABS: Calcium 8.5 mg/dL (8.7-10.4); Sodium 148 mmol/L (136-145)
[2025-02-01 13:27] LABS: Hemoglobin 6.8 g/dL (12.2-16.2)
[2025-02-01 13:29] LABS: BUN/Creatinine Ratio 15.9 (10.0-20.0)
[2025-02-01 13:30] LABS: Blood Urea Nitrogen 73 mg/dL (9-23); Glucose 208 mg/dL (74-106)
[2025-02-01 13:44] LABS: Anisocytosis Slight; Total Cells Counted 100.0 (100)
[2025-02-02] VITALS (109 sets, daily range): BP systolic 35–167; BP diastolic 13–66; PULSE 60–169; RESP 0–25; TEMP 97–98.7; O2SAT 68–100
[2025-02-02 03:53] LABS: Hemoglobin 7.5 g/dL (12.2-16.2)
[2025-02-02 03:54] LABS: Hematocrit 22.6 % (36.0-46.0); Mean Corpuscular Hemoglobin 30.6 pg (28.0-32.0); Mean Corpuscular Volume 92.3 fL (80.0-100.0); Nucleated Red Blood Cells % 0.2 %
[2025-02-02 04:16] LABS: Anion Gap 14 (5-15); BUN/Creatinine Ratio 16.7 (10.0-20.0); Bilirubin, Total 1.2 mg/dL (0.2-1.0); Carbon Dioxide 28 mmol/L (20-31); Chloride 106 mmol/L (98-107); INR 1.48 (0.9-1.15); Magnesium 2.5 mg/dL (1.6-2.6); Partial Thromboplastin Time 33.3 SEC (24.5-34.5); Potassium 4.0 mmol/L (3.5-5.1); Prothrombin Time 15.1 sec (9.3-11.8)
[2025-02-02 04:21] LABS: Alkaline Phosphatase 208 U/L (46-116); Glucose 131 mg/dL (74-106); Sodium 148 mmol/L (136-145)
[2025-02-02 04:22] LABS: Alanine Aminotransferase 50 U/L (7-40); Albumin 3.1 g/dL (3.2-4.8); Blood Urea Nitrogen 80 mg/dL (9-23); Calcium 8.5 mg/dL (8.7-10.4); Total Protein 5.5 g/dL (5.7-8.2)
[2025-02-02 08:54] LABS: Base Excess 0.0 mmol/L (-2.0-3.0)
--- NOTE | 2025-02-02 09:45 | DVH ---
Exam: US US GUIDED VASCULAR ACCESS Date: 01/31/2025 05:18 PM Clinical History: PICC LINE PLACEMENT Comparison: US LT UPPER DVT on DOS: 01/31/25, US US GUIDED VASCULAR ACCESS on DOS: 01/12/25, CL ANGIO EXTREMITY BILAT [place] on DOS: 01/12/25, US BILAT LOW EXT ART DUPLEX on DOS: 01/10/25 Findings: Targeted sonographic evaluation of the basilic vein was obtained utilizing grayscale and color Dopple r imaging. IMPRESSION: Sonographic assistance for central line placement. Please refer to procedural report for detailed fin dings.
--- NOTE | 2025-02-02 09:49 | DVH ---
INDICATION: intubated/ resp failure TECHNIQUE: Single frontal view of the chest was obtained Single frontal view of the chest was obtaine d COMPARISON: XY CHEST PORTABLE on DOS: 01/30/25, XY CHEST PORTABLE on DOS: 01/29/25, XY CHEST PORTABLE on DOS: 01/28/25, XY CHEST XRAY 1 VIEW on DOS: 01/26/25, XY CHEST PORTABLE on DOS: 01/23/25, XY CHES T PORTABLE on DOS: 01/30/25 FINDINGS: Lines and Tubes: Endotracheal tube 3.1 cm above the rod. Left internal jugular catheter in place i n the superior vena cava. Enteric tube below the left diaphragm tip not visualized in this study Lungs: No focal consolidation. Pleura : No effusion. No pneumothorax. Cardiomediastinal contours: Unremarkable Bones: No acute osseo us abnormality. Lines and Tubes: Endotracheal tube 3.1 cm above the rod. Left internal jugular catheter in place i n the superior vena cava. Enteric tube below the left diaphragm tip not visualized in this study Lung s: No focal consolidation. Pleura : No effusion. No pneumothorax. Cardiomediastinal contours: Unremarkable Bones: No acute osseous abnormality. IMPRESSION: 1. PICC line from left arm in place in the mid subclavian area not in the superior vena cava recommen d repositioning. 2. Catheter can remain in this position and be considered a midline catheter.
--- NOTE | 2025-02-02 11:09 | DVHPN2 ---
Assessment/Plan Assessment/Plan ICU note 64 F w ESRD on HD [place], NIDDM, HTN transferred from OSH for OM s/p trauma. Found to have significant PAD, s/p angio and stent. Seen with ams, increased WOB and hypotension, decision made with family to intubate. found thrombosis and axilary and brachial vein, overnight started on heparin, during HD today starting bleeding from fistula site. heparin discontinued, given protamine, FFP, PRBC, plt. now bleeding stopped. will hold heparin for now. physical exam intubated, sedated on mech vent b/l coarse rhonchi, thick white sputum on ett s1 s2 rrr abdomen soft trace LE edema labs ekg imaging reviewed assessment and plan acute hypoxic RF req mech vent acute metabolic encephalopathy ESRD on HD acute on chronic systolic HF aspiration PNA? vs fluid overload ARDS? right heart failure HFrEF 20% s/p AICD HLD R foot OM s/p I&D to bone NIDDM now w hypoglycemia hypothyroidism thrombocytopenic anemia CKD positive FOBT brachial and axilary vein thrombosis c/w mech vent c/w pressor, maintain SBP >90 HD per renal c/w sedation, maintain RAAS -1 to -2 somewhat euvolemic, will hold fluid trend lactate c/w invanz and vanc, ID recc appreciated pulm consult for bronch stress dose steroid hold platelet tf hold insulin, if hypoglycemic d50 start TF reculture podiatry send flu covid transfuse keep HB >7 platelets fFP diet TF dvt ppx hold bleeding condition critical prognosis poor full code critical care time 45 minutes excluding procedure Plan discussed with: Other My Orders Orders - ROBERTO VASQUEZ MD Procedure Category Date Status Time Lt Upper Dvt US 01/31/25 Resulted 15:30 Kub Abdomen Single XY 01/31/25 Resulted View 18:17 Date of Service: Feb 01, 2025 Billing Provider: ROBERTO VASQUEZ MD Common Visit Codes: [id number] CARE 30-74 MIN ROBERTO VASQUEZ MD Feb 01, 2025 11:46
--- NOTE | 2025-02-02 11:11 | DVHPN2 ---
Progress Note Date Seen: Feb 01, 2025 Resident Creating Document: MERLY THAKUR RESIDENT Medical Necessity Reason Pt with a Central, PICC or Fol: Yes The following are medically ne: Central Line, Lofton Catheter Subjective Review of Systems Seen and examined with the bedside Continues to be on mechanical ventilation and sedated H&H trending down slightly Patient was found to have upper extremity DVT yesterday and was sudden heparin drip, in the morning while accessing the AV fistula for dialysis patient has started to have bleeding, given protamine sulfate PRBC and FFP, heparin held Dark brown stool seen in the flexi Seal Abdomen soft and tolerating feeding with a NG tube well Objective vital signs Vital Sign Date Time Temp Pulse Resp B/P (MAP) Pulse Ox O2 Delivery O2 Flow Rate FiO2 02/01/25 09:51 73 22 92/35 (54) 93 50 02/01/25 06:00 Mechanical Ventilator+ 02/01/25 04:00 98.3 98.3 Total Intake and Output 01/31/25 01/31/25 02/01/25 15:00 23:00 07:00 Intake Total 17.5 ml 135.0 ml 579.0 ml Output Total 0 ml Balance 17.5 ml 135.0 ml 579.0 ml medications Current Medications Medications Dose Ordered Sig/Seth Route Start Time Stop Time Status Last Admin Dose Admin Acetaminophen 325 mg Q4HP PRN PO 01/10/25 00:30 01/22/25 00:29 325 MG Ondansetron HCl 4 mg Q4HP PRN IV 01/10/25 00:30 01/20/25 16:19 4 MG Atorvastatin Calcium 40 mg HS PO 01/10/25 22:00 01/31/25 22:25 40 MG Levothyroxine Sodium 125 mcg QAM@0600 PO 01/11/25 06:00 02/01/25 05:53 125 MCG Sodium Chloride 10 ml QSHIFT@ IV 01/12/25 22:00 02/01/25 10:00 10 ML Dextrose 50 ml UD PRN IV 01/14/25 14:15 01/24/25 12:10 50 ML Fluconazole 100 mg POSTDI PRN PO 01/15/25 12:45 Cancel Ertapenem 0.5 gm/ Sodium Chloride 50 ml @ 100 mls/hr DAILY IV 01/19/25 10:00 02/01/25 10:00 100 MLS/HR Albumin Human 100 ml @ 100 mls/hr WD PRN IV 01/18/25 21:00 02/01/25 11:17 100 MLS/HR Albuterol 2.5 mg Q4HPRN PRN NEB 01/20/25 16:00 01/31/25 02:30 2.5 MG Vancomycin HCl 0 ml @ 0 mls/hr PER PHARMACY IV 01/21/25 12:15 Cancel Fentanyl Citrate 250 ml @ 2.5 mls/hr Q24H IV 01/23/25 13:45 02/01/25 09:45 10 MLS/HR Norepinephrine Bitartrate 32 mg/ Sodium Chloride 250 ml @ 0.938 mls/ hr Q24H IV 01/23/25 14:45 02/01/25 11:30 0.938 MLS/HR Enteral Nutritional Formula 1,000 ml 30ML/HR GT 01/23/25 18:00 01/26/25 23:26 1,000 ML Pantoprazole Sodium 40 mg BID IV 01/23/25 22:00 02/01/25 11:48 40 MG Sodium Chloride 1,000 ml @ 200 mls/hr Q5H IV 01/25/25 11:00 Cancel Amiodarone HCl 100 mg Q12HR PO 01/25/25 22:00 02/01/25 11:49 100 MG Midazolam HCl 100 ml @ 1 mls/hr Q24H IV 01/25/25 18:00 01/25/25 21:58 3 MLS/HR Diagnostic Test (Pha) 1 strip IQ4HR 01/28/25 12:00 02/01/25 12:23 1 STRIP Insulin Human Regular IQ4HR SC 01/28/25 12:00 02/01/25 12:24 6 UNITS Hydrocortisone Sodium Succinate 50 mg Q8HR IV 01/28/25 14:00 02/01/25 05:53 50 MG Heparin Sodium/ Dextrose 250 ml @ 12 mls/hr [id number] IV 01/31/25 23:00 02/01/25 00:23 12 MLS/HR Examination Gen - no pallor, no scleral icterus Skin - Patients skin is warm and dry. HEENT - normocephalic, atraumatic, dry mucous membranes. Neck - supple, no lymphadenopathy Pulmonary - decreased breath sounds on the left side cardiovascular - regular S1,S2 heard GI - soft abdomen. Bowel sounds hypoactive. Neurological - sedated and on mechanical ventilation laboratory and microbiology Laboratory Tests 02/01/25 03:00 Test 02/01/25 03:00 Range/Units Serum Glucose 184 H 74-106 mg/dL Microbiology Date/Time Source Procedure Growth Status 01/24/25 10:06 Bronchial Washings Gram Stain - Final Complete 01/24/25 10:06 Bronchial Washings Respiratory Culture - Final Complete 01/23/25 19:15 Blood Blood Culture - Final NO GROWTH AFTER 5 DAYS OF INCUBATION. Complete 01/23/25 09:15 Nose MRSA Screen - Final Complete 01/10/25 09:18 Voided Urine Urine Culture - Final Presumptive Sully albicans Yeast, not Sully albicans Complete Problem List/Assessment/Plan Problem List/Assessment/Plan Assessment Possible GI bleed Sepsis likely from osteomyelitis Acute on chronic systolic heart failure Thrombocytopenia Coagulopathy PAT on CKD likely due to VMN Left upper extremity DVT Bleeding status post heparin drip Plan - Protonix 40 mg IV b.i.d. - once the patient is hemodynamically stable, she may benefit from EGD - watch H&H - feeding through NG tube, check residuals qshift - heparin held, given protamine, PRBC and FFP Poor prognosis Plan discussed with Dr. Soto Plan discussed with: Other (ALBERTINA Rosenberg) Dietary Evaluation Review Comments: Nutrition Recommendation 1) CCHO 60gm + renal standard diet 2) Nephro-santosh 1 tab daily 3) Lexx 1 pk daily 4) Monitor PO intake, lab values, weight trend, and I/O Expected Outcomes/Goals: To meet >75% estimated needs Wound to improve Fu 3-5 days CC Plasma Assessment Blood Product Administration S: [id number] MERLY THAKUR RESIDENT Feb 01, 2025 12:38
--- NOTE | 2025-02-02 11:13 | DVHPN2 ---
Progress Note - Dictate Date Seen: Feb 01, 2025 Medical Necessity Reason Pt with a Central, PICC or Fol: Yes The following are medically ne: Central Line, Lofton Catheter Subjective On mechanical ventilation vital signs Vital Sign Date Time Temp Pulse Resp B/P (MAP) Pulse Ox O2 Delivery O2 Flow Rate FiO2 02/01/25 11:00 76 23 107/33 (57) 92 02/01/25 09:51 50 02/01/25 08:00 97.7 97.7 02/01/25 06:00 Mechanical Ventilator+ Total Intake and Output 01/31/25 01/31/25 02/01/25 15:00 23:00 07:00 Intake Total 17.5 ml 135.0 ml 579.0 ml Output Total 0 ml Balance 17.5 ml 135.0 ml 579.0 ml medications Current Medications Medications Dose Ordered Sig/Seth Route Start Time Stop Time Status Last Admin Dose Admin Acetaminophen 325 mg Q4HP PRN PO 01/10/25 00:30 01/22/25 00:29 325 MG Ondansetron HCl 4 mg Q4HP PRN IV 01/10/25 00:30 01/20/25 16:19 4 MG Atorvastatin Calcium 40 mg HS PO 01/10/25 22:00 01/31/25 22:25 40 MG Levothyroxine Sodium 125 mcg QAM@0600 PO 01/11/25 06:00 02/01/25 05:53 125 MCG Sodium Chloride 10 ml QSHIFT@10,22 IV 01/12/25 22:00 02/01/25 10:00 10 ML Dextrose 50 ml UD PRN IV 01/14/25 14:15 01/24/25 12:10 50 ML Fluconazole 100 mg POSTDI PRN PO 01/15/25 12:45 Cancel Ertapenem 0.5 gm/ Sodium Chloride 50 ml @ 100 mls/hr DAILY IV 01/19/25 10:00 02/01/25 10:00 100 MLS/HR Albumin Human 100 ml @ 100 mls/hr WD PRN IV 01/18/25 21:00 02/01/25 11:17 100 MLS/HR Albuterol 2.5 mg Q4HPRN PRN NEB 01/20/25 16:00 01/31/25 02:30 2.5 MG Vancomycin HCl 0 ml @ 0 mls/hr PER PHARMACY IV 01/21/25 12:15 Cancel Fentanyl Citrate 250 ml @ 2.5 mls/hr Q24H IV 01/23/25 13:45 02/01/25 09:45 10 MLS/HR Norepinephrine Bitartrate 32 mg/ Sodium Chloride 250 ml @ 0.938 mls/ hr Q24H IV 01/23/25 14:45 02/01/25 11:30 0.938 MLS/HR Enteral Nutritional Formula 1,000 ml 30ML/HR GT 01/23/25 18:00 01/26/25 23:26 1,000 ML Pantoprazole Sodium 40 mg BID IV 01/23/25 22:00 02/01/25 11:48 40 MG Sodium Chloride 1,000 ml @ 200 mls/hr Q5H IV 01/25/25 11:00 Cancel Amiodarone HCl 100 mg Q12HR PO 01/25/25 22:00 02/01/25 11:49 100 MG Midazolam HCl 100 ml @ 1 mls/hr Q24H IV 01/25/25 18:00 01/25/25 21:58 3 MLS/HR Diagnostic Test (Pha) 1 strip IQ4HR 01/28/25 12:00 02/01/25 12:23 1 STRIP Insulin Human Regular IQ4HR SC 01/28/25 12:00 02/01/25 12:24 6 UNITS Hydrocortisone Sodium Succinate 50 mg Q8HR IV 01/28/25 14:00 02/01/25 05:53 50 MG Heparin Sodium/ Dextrose 250 ml @ 12 mls/hr [id number] IV 01/31/25 23:00 02/01/25 00:23 12 MLS/HR objective intubated and sedated Pulmonary: Diminished breath sounds at bases Cardiovascular S1-S2, no S3 or S4 Abdomen: Bowel sounds positive, soft no rebound tenderness Neurological: intubated and sedated Extremities: Right foot gangrenous, trace edema laboratory and microbiology Test 02/01/25 09:58 Range/Units Serum Glucose Pending Problem List Problem List ESRD on HD, HD nurse could not complete HD today due to profuse bleeding from access cannulation sites due to patient being on anticoalgulation Acute hypoxic respiratory failure Shock secondary to sepsis Right foot osteomyelitis Pneumonia DM hypothyroidism Leukocytosis Anemia Hyperphosphatemia Secondary hyperparathyroidism Thrombocytopenia Assessment/Plan Will try HD again tomorrow Adjust coagulation therapy continue IV abx . Monitor H/H closely and transfuse prn Prognosis guarded Dietary Evaluation Review Comments: Nutrition Recommendation 1) CCHO 60gm + renal standard diet 2) Nephro-santosh 1 tab daily 3) Lexx 1 pk daily 4) Monitor PO intake, lab values, weight trend, and I/O Expected Outcomes/Goals: To meet >75% estimated needs Wound to improve Fu 3-5 days Plan discussed with: Other CC Plasma Assessment Blood Product Administration S: [id number] NEL MONAHAN MD Feb 01, 2025 13:19
--- NOTE | 2025-02-02 11:29 | DVHPN2 ---
Subjective [facility] DOS: 02/01/2025 Patient seen and examined at bedside. Intubated on mechanical ventilator. Overnight events reviewed. Reviewed: Care Plan Changes from previous H/P or p: No Changes Objective Vitals Vital Signs Date Time Temp Pulse Resp B/P (MAP) Pulse Ox O2 Delivery O2 Flow Rate FiO2 02/01/25 22:23 98.6 73 21 137/37 98.6 02/01/25 22:15 94 50 02/01/25 20:00 Mechanical Ventilator+ Intake/Output Intake and Output 02/01/25 07:00 Intake Total 731.5 ml Output Total 0 ml Balance 731.5 ml Intake Oral 60 ml IV Total 341.5 ml Tube Feeding 330 ml Drainage Total 0 ml Exam Gen.: Patient lying in bed in medical ICU. Intubated on mechanical ventilator. Head: Normocephalic, atraumatic. Eyes: PERRLA. Ears: Normal external anatomy. Throat: Endotracheal tube and orogastric tube in place. Neck: Supple, trachea midline. Chest: Transmitted breath sounds bilaterally. Decreased air entry bilaterally. No wheezing. Bibasilar crackles. Cardiovascular: Positive S1, positive S2. Regular rate and rhythm. Abdomen: Positive bowel sounds in all 4 quadrants. Soft, nontender, nondistended. : Lofton in place. Normal external genitalia. Rectal: Deferred. Skin: Warm, dry. Right foot osteomyelitis. Extremities: 2+ radial pulses bilaterally. No lower extremity edema. Neuro: Off sedation General Appearance: mild distress, Other (Intubated) HEENT: Atraumatic, PERRLA Lungs: Clear to auscultation, Other (On vent, transmitted breath sounds bilaterally.) Cardiovascular: Normal S1, Normal S2 Abdomen: Normal bowel sounds, Soft, No tenderness, No hepatospenomegaly Musculoskeletal: Other (Unable to assess) Neuro: Other (Unable to assess) Skin: Dry, Intact, Other (Right foot necrosis) Psych/Mental Status: Other (Unable to assess) Medications Current Medications Medications Dose Ordered Sig/Seth Route Start Time Stop Time Status Last Admin Dose Admin Acetaminophen 325 mg Q4HP PRN PO 01/10/25 00:30 01/22/25 00:29 325 MG Ondansetron HCl 4 mg Q4HP PRN IV 01/10/25 00:30 01/20/25 16:19 4 MG Atorvastatin Calcium 40 mg HS PO 01/10/25 22:00 02/01/25 22:22 40 MG Levothyroxine Sodium 125 mcg QAM@0600 PO 01/11/25 06:00 02/01/25 05:53 125 MCG Sodium Chloride 10 ml QSHIFT@10,22 IV 01/12/25 22:00 02/01/25 22:21 10 ML Dextrose 50 ml UD PRN IV 01/14/25 14:15 01/24/25 12:10 50 ML Fluconazole 100 mg POSTDI PRN PO 01/15/25 12:45 Cancel Ertapenem 0.5 gm/ Sodium Chloride 50 ml @ 100 mls/hr DAILY IV 01/19/25 10:00 02/01/25 10:00 100 MLS/HR Albumin Human 100 ml @ 100 mls/hr WD PRN IV 01/18/25 21:00 02/01/25 11:17 100 MLS/HR Albuterol 2.5 mg Q4HPRN PRN NEB 01/20/25 16:00 01/31/25 02:30 2.5 MG Vancomycin HCl 0 ml @ 0 mls/hr PER PHARMACY IV 01/21/25 12:15 Cancel Fentanyl Citrate 250 ml @ 2.5 mls/hr Q24H IV 01/23/25 13:45 02/01/25 09:45 15 MLS/HR Norepinephrine Bitartrate 32 mg/ Sodium Chloride 250 ml @ 0.938 mls/ hr Q24H IV 01/23/25 14:45 02/01/25 11:15 0.938 MLS/HR Enteral Nutritional Formula 1,000 ml 30ML/HR GT 01/23/25 18:00 01/26/25 23:26 1,000 ML Pantoprazole Sodium 40 mg BID IV 01/23/25 22:00 02/01/25 22:21 40 MG Sodium Chloride 1,000 ml @ 200 mls/hr Q5H IV 01/25/25 11:00 Cancel Amiodarone HCl 100 mg Q12HR PO 01/25/25 22:00 02/01/25 22:22 100 MG Midazolam HCl 100 ml @ 1 mls/hr Q24H IV 01/25/25 18:00 01/25/25 21:58 3 MLS/HR Diagnostic Test (Pha) 1 strip IQ4HR 01/28/25 12:00 02/01/25 20:07 1 STRIP Insulin Human Regular IQ4HR SC 01/28/25 12:00 02/01/25 20:22 3 UNITS Hydrocortisone Sodium Succinate 50 mg Q8HR IV 01/28/25 14:00 02/01/25 22:21 50 MG Heparin Sodium/ Dextrose 250 ml @ 12 mls/hr [id number] IV 01/31/25 23:00 02/01/25 00:23 12 MLS/HR Laboratory Results Laboratory Tests 02/01/25 09:58 Chemistry Test 02/01/25 03:00 02/01/25 09:58 Calcium Level 8.5 mg/dL (8.7-10.4) L 8.5 mg/dL (8.7-10.4) L Magnesium Level 2.5 mg/dL (1.6-2.6) Phosphorus Level 3.7 mg/dL (2.4-5.1) Coagulation Test 02/01/25 00:30 02/01/25 08:27 02/01/25 09:58 Prothrombin Time 16.1 sec (9.3-11.8) H 17.6 sec (9.3-11.8) H 17.0 sec (9.3-11.8) H Prothrombin Time INR 1.59 (0.9-1.15) H 1.76 (0.9-1.15) H 1.69 (0.9-1.15) H Activated Partial Thromboplast Time 33.9 SEC (24.5-34.5) > 139.0 SEC (24.5-34.5) *H > 139.0 SEC (24.5-34.5) *H Urinalysis Test 01/10/25 09:18 Urine Color Yellow (Yellow) Urine Clarity Turbid (Clear) H Urine pH 6.5 (5.0-9.0) Urine Specific [place] 1.019 (1.001-1.035) Urine Protein 2+ (Negative) H Urine Ketones Negative (Negative) Urine Blood Negative /uL (Negative) Urine Nitrite Negative (Negative) Urine Bilirubin Negative (Negative) Urine Urobilinogen Normal mg/dL (Negative) Urine Leukocyte Esterase Trace /uL (Negative) Urine RBC 7 /hpf (0 - 4) Urine Microscopic WBC 4 /HPF (0-5) Urine Squamous Epithelial Cells Few /hpf (<5) Urine Bacteria None seen /hpf (None Seen) Urine Yeast (Budding) Moderate /hpf (None Seen) Urine Glucose 1+ mg/dL (Normal) H Blood Gas Results Test 02/01/25 07:00 Arterial Blood pH 7.336 (7.350-7.450) FiO2 % 50.0 Microbiology Microbiology Date/Time Source Procedure Growth Status 01/24/25 10:06 Bronchial Washings Gram Stain - Final Complete 01/24/25 10:06 Bronchial Washings Respiratory Culture - Final Complete 01/23/25 19:15 Blood Blood Culture - Final NO GROWTH AFTER 5 DAYS OF INCUBATION. Complete 01/23/25 09:15 Nose MRSA Screen - Final Complete 01/10/25 09:18 Voided Urine Urine Culture - Final Presumptive Sully albicans Yeast, not Sully albicans Complete Assessment/Plan Assessment/Plan Impression: Acute hypoxic respiratory failure On mechanical ventilator Acute CHF exacerbation End-stage renal disease, on hemodialysis Osteomyelitis Overweight Events: Remains on vent support On AC mode; RR 22, VT 400, PEEP 12, FiO2 50% Improved FiO2 requirements. Taper PEEP and FiO2 as tolerated Patient noted to desaturate with turns. Off sedation On Fentanyl drip 100 mcg/min ABG reviewed, notable for acidemia CXR shows no focal consolidation. Devices in place. CT chest demonstrates ground-glass opacities/interstitial lung opacities. Left upper extremity venous duplex reveals DVT in left axillary and brachial veins. Continue heparin drip per Pharmacy Pressors for hemodynamic support On Levophed 10 mcg/min Titrate to keep mean arterial pressure greater than 65 mmHg. Evaluate for PICC line placement Hemodialysis per Nephrology Nephrology recommendations appreciated. Continue bronchodilators. Continue antibiotics. Continue IV stress dose steroids, q.8 hours Accu-Cheks, ISS. Hemodialysis per Nephrology Nephrology recs appreciated Monitor renal function Monitor electrolytes. Supplement as necessary. Monitor ins and outs. Tube feeds for nutritional support DTI sacrum - wound care. Labs and imaging reviewed. Rest of plan as noted below. Plan: s/p intubation on mechanical ventilator. On AC mode; RR 22, VT 400, PEEP 12, FiO2 50% S/p bronchoscopy on 11/24/24 - Results from bronchial washings show no growth. Titrate FIO2 to keep O2 saturation above 90%. VAP bundle. Daily ABG and CXR while intubated Continue bronchodilators. Continue antibiotics. Follow up cultures. IV steroids Pressors for hemodynamic support Titrate to keep mean arterial pressure greater than 65 mmHg. Wound care. Monitor H&H. Hemodialysis per Nephrology Monitor renal function Monitor electrolytes. Supplement as necessary. Monitor ins and outs. Maintain euvolemia. GI prophylaxis. DVT prophylaxis. Prognosis: Poor given patient's multiple co-morbidities. Condition: Critical Rest of plan per hospitalist and other consultants. A total of 35 minutes of critical care time was spent reviewing the patient record, examining the patient, making a diagnostic and therapeutic plan, discussing this plan with the medical personnel, following up on diagnostic studies and following the patient for clinical stability excluding any and all procedures. At least 50% of this time was spent in direct, [id number] contact. Thank you, Dr. Bowie, for allowing me to participate in this patient's care. Further recommendations will depend on the patient's clinical course. Please do not hesitate to contact me if you have any questions or concerns. This medical document was created using an electronic medical record system with [employer] dictation system. Although these documentations are being carefully reviewed, there may still be some phonetic and typographical changes. The errors are purely typographical, due to imperfection on the software program, and do not reflect any compromise in the patient's medical care. Plan discussed with: Other (ALBERTINA Rosenberg) My Orders Orders - ALCON GUTHRIE MD Procedure Category Date Status Time Abg W/ Co-Ox RT 02/01/25 Logged 07:00 Visit Coding Pulmonary Billing Provider: ALCON GUTHRIE MD Date of Service if different f: Feb 01, 2025 Common Visit Codes: [id number] INP/OBS CARE(HIGH), 14119-[id number] CARE 30-74 MIN ALCON GUTHRIE MD Feb 01, 2025 23:36
--- NOTE | 2025-02-02 13:39 | DVHPN2 ---
Progress Note - Dictate Date Seen: Feb 02, 2025 Medical Necessity Reason Pt with a Central, PICC or Fol: Yes The following are medically ne: Central Line, Lofton Catheter Subjective On mechanical ventilation vital signs Vital Sign Date Time Temp Pulse Resp B/P (MAP) Pulse Ox O2 Delivery O2 Flow Rate FiO2 02/02/25 12:19 74 22 101/31 (54) 94 50 02/02/25 12:00 97.0 97.0 02/02/25 12:00 Mechanical Ventilator+ Total Intake and Output 02/01/25 02/01/25 02/02/25 15:00 23:00 07:00 Intake Total 161.816 ml 880.317 ml 396.690 ml Balance 161.816 ml 880.317 ml 396.690 ml medications Current Medications Medications Dose Ordered Sig/Seth Route Start Time Stop Time Status Last Admin Dose Admin Acetaminophen 325 mg Q4HP PRN PO 01/10/25 00:30 01/22/25 00:29 325 MG Ondansetron HCl 4 mg Q4HP PRN IV 01/10/25 00:30 01/20/25 16:19 4 MG Atorvastatin Calcium 40 mg HS PO 01/10/25 22:00 02/01/25 22:22 40 MG Levothyroxine Sodium 125 mcg QAM@0600 PO 01/11/25 06:00 02/02/25 05:54 125 MCG Sodium Chloride 10 ml QSHIFT@10,22 IV 01/12/25 22:00 02/02/25 07:52 10 ML Dextrose 50 ml UD PRN IV 01/14/25 14:15 01/24/25 12:10 50 ML Fluconazole 100 mg POSTDI PRN PO 01/15/25 12:45 Cancel Ertapenem 0.5 gm/ Sodium Chloride 50 ml @ 100 mls/hr DAILY IV 01/19/25 10:00 02/02/25 07:51 100 MLS/HR Albumin Human 100 ml @ 100 mls/hr WD PRN IV 01/18/25 21:00 02/01/25 11:17 100 MLS/HR Albuterol 2.5 mg Q4HPRN PRN NEB 01/20/25 16:00 02/02/25 06:29 2.5 MG Vancomycin HCl 0 ml @ 0 mls/hr PER PHARMACY IV 01/21/25 12:15 Cancel Fentanyl Citrate 250 ml @ 2.5 mls/hr Q24H IV 01/23/25 13:45 02/02/25 04:04 15 MLS/HR Norepinephrine Bitartrate 32 mg/ Sodium Chloride 250 ml @ 0.938 mls/ hr Q24H IV 01/23/25 14:45 02/01/25 11:15 0.938 MLS/HR Enteral Nutritional Formula 1,000 ml 30ML/HR GT 01/23/25 18:00 01/26/25 23:26 1,000 ML Pantoprazole Sodium 40 mg BID IV 01/23/25 22:00 02/02/25 07:51 40 MG Sodium Chloride 1,000 ml @ 200 mls/hr Q5H IV 01/25/25 11:00 Cancel Amiodarone HCl 100 mg Q12HR PO 01/25/25 22:00 02/02/25 07:52 100 MG Midazolam HCl 100 ml @ 1 mls/hr Q24H IV 01/25/25 18:00 01/25/25 21:58 3 MLS/HR Diagnostic Test (Pha) 1 strip IQ4HR 01/28/25 12:00 02/02/25 11:10 1 STRIP Insulin Human Regular IQ4HR SC 01/28/25 12:00 02/02/25 00:25 2 UNITS Hydrocortisone Sodium Succinate 50 mg Q8HR IV 01/28/25 14:00 02/02/25 05:53 50 MG Heparin Sodium/ Dextrose 250 ml @ 12 mls/hr [id number] IV 01/31/25 23:00 02/01/25 00:23 12 MLS/HR objective intubated and sedated Pulmonary: Diminished breath sounds at bases Cardiovascular S1-S2, no S3 or S4 Abdomen: Bowel sounds positive, soft no rebound tenderness Neurological: intubated and sedated Extremities: Right foot gangrenous, trace edema laboratory and microbiology Laboratory Tests 02/02/25 03:35 Test 02/02/25 03:35 Range/Units Serum Glucose 131 H 74-106 mg/dL Problem List Problem List ESRD on HD, HD nurse could not complete HD again today due to severe edema in area od HD access, the whole arm is swollenm, very difficult to cannulate, yesterday there was profuse bleeding from access cannulation sites due to patient being on anticoalgulation Acute hypoxic respiratory failure Shock secondary to sepsis Right foot osteomyelitis Pneumonia DM hypothyroidism Leukocytosis Anemia Hyperphosphatemia Secondary hyperparathyroidism Thrombocytopenia Assessment/Plan Place temporary HD catheter Will try HD again tomorrow Adjust coagulation therapy continue IV abx . Monitor H/H closely and transfuse prn Prognosis guarded Dietary Evaluation Review Comments: Nutrition Recommendation 1) CCHO 60gm + renal standard diet 2) Nephro-santosh 1 tab daily 3) Lexx 1 pk daily 4) Monitor PO intake, lab values, weight trend, and I/O Expected Outcomes/Goals: To meet >75% estimated needs Wound to improve Fu 3-5 days Plan discussed with: Other CC Plasma Assessment Blood Product Administration S: [id number] NEL MONAHAN MD Feb 02, 2025 13:39
--- NOTE | 2025-02-02 14:04 | DVHNC2 ---
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 Completed US guided HD catheter placement. Attempted right jugular, but could not advance wire due to pacemaker. Finally placed in Right femoral resgion. Date of Service: Feb 02, 2025 Billing Provider: BENJAMIN BRUCE MD Common Visit Codes: PROCEDURE ONLY Procedure Codes: [id number] NON-TUNNEL CV CATH BURAK JIMÉNEZ RESIDENT Feb 02, 2025 14:04
[2025-02-02] MEDS ORDERED: LEVALBUTEROL HCL 1.25 MG/3 ML NEB NEB SCH ×2 (14:30→18:00)
[2025-02-02] MEDS: LEVALBUTEROL HCL 1.25 MG/3 ML NEB NEB SCH ×2 (14:33→18:00)
[2025-02-02] MEDS: SODIUM CHL 0.9% 1000 ML BAG XX ONE (14:45)
[2025-02-02] MEDS: AMIODARONE BOLUS KIT 100 ML IV ONE ×2 (14:45→15:00)
--- NOTE | 2025-02-02 15:11 | DVH ---
CHEST RADIOGRAPH Indication: attempt right IJ lazarus Technique: Single frontal view of the chest was obtained Comparison: XY CHEST PORTABLE on DOS: 02/02/25, XY CHEST PORTABLE on DOS: 01/30/25, XY CHEST PORTABLE on DOS: 01/29/25 FINDINGS: Lines and Tubes: Endotracheal tube 4.9 cm above the rod. Enteric tube noted below left diaphragm. Tip not visualized on this study. Dual-chamber pacemaker in place with pulse generator over the left chest. PICC line from left arm in place unchanged from earlier study 826 on 02/02/2025. Lungs: Cardiopulmonary findings stable and unchanged.. Pleura: No effusion. No pneumothorax. Cardiomediastinal contours: Unremarkable Bones: No acute osseous abnormality. IMPRESSION: 1. Endotracheal tube 4.9 cm above the rod. 2. Enteric tube below the left diaphragm tip not visualized on study. 3. PICC line from left arm in place unchanged from earlier study today 4. Pacemaker in place unchanged. 5. Pulmonary airspace disease stable 6. Cardiac size stable. 7. Lazarus catheter from the right not well visualized may not be in place. 8. No right pneumothorax.
[2025-02-02] MEDS ORDERED: LABETALOL HCL 20 MG/4 ML VL IV PRN (15:15)
[2025-02-02] MEDS: LABETALOL HCL 20 MG/4 ML VL IV ONE (15:16)
[2025-02-02 15:23] LABS: Nucleated Red Blood Cells % 0.1 %
[2025-02-02 15:25] LABS: Hematocrit 22.9 % (36.0-46.0); Hemoglobin 7.4 g/dL (12.2-16.2); Mean Corpuscular Hemoglobin 30.0 pg (28.0-32.0); Mean Corpuscular Volume 93.1 fL (80.0-100.0)
--- NOTE | 2025-02-02 15:44 | DVHPN2 ---
Progress Note Date Seen: Feb 02, 2025 Resident Creating Document: MERLY THAKUR RESIDENT Medical Necessity Reason Pt with a Central, PICC or Fol: Yes The following are medically ne: Central Line, [place] Catheter Subjective Review of Systems Patient seen and examined at the bedside Continues to be on high ventilator requirements with a PEEP of 12 and FiO2 50% H&H improved after yesterday Gastric residuals reported about 100 mL, continued to start feeding again Brownish stool noted in the flexi Seal rectal tube at the same levels since yesterday, no new bowel movements reported Objective vital signs Vital Sign Date Time Temp Pulse Resp B/P (MAP) Pulse Ox O2 Delivery O2 Flow Rate FiO2 02/02/25 14:33 165 24 136/66 (89) 100 100 02/02/25 12:00 97.0 97.0 02/02/25 12:00 Mechanical Ventilator+ Total Intake and Output 02/01/25 02/01/25 02/02/25 15:00 23:00 07:00 Intake Total 161.816 ml 880.317 ml 396.690 ml Balance 161.816 ml 880.317 ml 396.690 ml medications Current Medications Medications Dose Ordered Sig/Seth Route Start Time Stop Time Status Last Admin Dose Admin Acetaminophen 325 mg Q4HP PRN PO 01/10/25 00:30 01/22/25 00:29 325 MG Ondansetron HCl 4 mg Q4HP PRN IV 01/10/25 00:30 01/20/25 16:19 4 MG Atorvastatin Calcium 40 mg HS PO 01/10/25 22:00 02/01/25 22:22 40 MG Levothyroxine Sodium 125 mcg QAM@0600 PO 01/11/25 06:00 02/02/25 05:54 125 MCG Sodium Chloride 10 ml QSHIFT@10,22 IV 01/12/25 22:00 02/02/25 07:52 10 ML Dextrose 50 ml UD PRN IV 01/14/25 14:15 01/24/25 12:10 50 ML Fluconazole 100 mg POSTDI PRN PO 01/15/25 12:45 Cancel Ertapenem 0.5 gm/ Sodium Chloride 50 ml @ 100 mls/hr DAILY IV 01/19/25 10:00 02/02/25 07:51 100 MLS/HR Albumin Human 100 ml @ 100 mls/hr WD PRN IV 01/18/25 21:00 02/01/25 11:17 100 MLS/HR Albuterol 2.5 mg Q4HPRN PRN NEB 01/20/25 16:00 02/02/25 06:29 2.5 MG Vancomycin HCl 0 ml @ 0 mls/hr PER PHARMACY IV 01/21/25 12:15 Cancel Fentanyl Citrate 250 ml @ 2.5 mls/hr Q24H IV 01/23/25 13:45 02/02/25 04:04 15 MLS/HR Norepinephrine Bitartrate 32 mg/ Sodium Chloride 250 ml @ 0.938 mls/ hr Q24H IV 01/23/25 14:45 02/01/25 11:15 0.938 MLS/HR Enteral Nutritional Formula 1,000 ml 30ML/HR GT 01/23/25 18:00 01/26/25 23:26 1,000 ML Pantoprazole Sodium 40 mg BID IV 01/23/25 22:00 02/02/25 07:51 40 MG Sodium Chloride 1,000 ml @ 200 mls/hr Q5H IV 01/25/25 11:00 Cancel Amiodarone HCl 100 mg Q12HR PO 01/25/25 22:00 02/02/25 07:52 100 MG Midazolam HCl 100 ml @ 1 mls/hr Q24H IV 01/25/25 18:00 01/25/25 21:58 3 MLS/HR Diagnostic Test (Pha) 1 strip IQ4HR 01/28/25 12:00 02/02/25 11:10 1 STRIP Insulin Human Regular IQ4HR SC 01/28/25 12:00 02/02/25 00:25 2 UNITS Hydrocortisone Sodium Succinate 50 mg Q8HR IV 01/28/25 14:00 02/02/25 14:00 50 MG Heparin Sodium/ Dextrose 250 ml @ 12 mls/hr [id number] IV 01/31/25 23:00 02/01/25 00:23 12 MLS/HR Levalbuterol HCl 1.25 mg Q4HR NEB 02/02/25 14:30 Amiodarone HCl 250 ml @ 16.66 mls/ hr Q15H1M IV 02/02/25 21:00 Labetalol HCl 10 mg ONCE PRN IV 02/02/25 15:15 Ipratropium [place] 0.5 mg Q4HR NEB 02/02/25 18:00 Examination Gen - no pallor, no scleral icterus Skin - Patients skin is warm and dry. HEENT - normocephalic, atraumatic, dry mucous membranes. Neck - supple, no lymphadenopathy Pulmonary - decreased breath sounds on the left side cardiovascular - regular S1,S2 heard GI - soft abdomen. Bowel sounds hypoactive. Neurological - sedated and on mechanical ventilation laboratory and microbiology Laboratory Tests 02/02/25 15:02 Test 02/02/25 15:02 Range/Units Serum Glucose Pending Microbiology Date/Time Source Procedure Growth Status 02/01/25 05:00 Catheter Tip Aerobic Culture - Preliminary Resulted 01/24/25 10:06 Bronchial Washings Gram Stain - Final Complete 01/24/25 10:06 Bronchial Washings Respiratory Culture - Final Complete 01/23/25 19:15 Blood Blood Culture - Final NO GROWTH AFTER 5 DAYS OF INCUBATION. Complete 01/10/25 09:18 Voided Urine Urine Culture - Final Presumptive Sully albicans Yeast, not Sully albicans Complete Problem List/Assessment/Plan Problem List/Assessment/Plan Assessment Possible GI bleed Sepsis likely from osteomyelitis Acute on chronic systolic heart failure Thrombocytopenia Coagulopathy PAT on CKD likely due to VMN Left upper extremity DVT Plan - Protonix 40 mg IV b.i.d. - once the patient is hemodynamically stable, she may benefit from EGD - watch H&H - feeding through NG tube, check residuals qshift - heparin held, given protamine, PRBC and FFP on 02/01 Poor prognosis Plan discussed with Dr. Soto Plan discussed with: Other (ALBERTINA Mccormack) Dietary Evaluation Review Comments: Nutrition Recommendation 1) CCHO 60gm + renal standard diet 2) Nephro-santosh 1 tab daily 3) Lexx 1 pk daily 4) Monitor PO intake, lab values, weight trend, and I/O Expected Outcomes/Goals: To meet >75% estimated needs Wound to improve Fu 3-5 days CC Plasma Assessment Blood Product Administration S: [id number] MERLY THAKUR RESIDENT Feb 02, 2025 15:44
[2025-02-02 16:03] LABS: Hemoglobin 7.4 g/dL (12.2-16.2); Mean Corpuscular Hemoglobin 30.5 pg (28.0-32.0); Nucleated Red Blood Cells % 0.3 %
[2025-02-02 16:04] LABS: Hematocrit 23.1 % (36.0-46.0); Mean Corpuscular Volume 94.7 fL (80.0-100.0)
[2025-02-02 16:20] LABS: Carbon Dioxide 28 mmol/L (20-31); Chloride 104 mmol/L (98-107)
[2025-02-02 16:21] LABS: Albumin 3.2 g/dL (3.2-4.8); Anion Gap 15 (5-15); BUN/Creatinine Ratio 19.1 (10.0-20.0); Bilirubin, Total 1.1 mg/dL (0.2-1.0); INR 1.56 (0.9-1.15); Magnesium 2.6 mg/dL (1.6-2.6); Partial Thromboplastin Time 64.8 SEC (24.5-34.5); Potassium 4.9 mmol/L (3.5-5.1); Prothrombin Time 15.8 sec (9.3-11.8)
[2025-02-02 16:24] LABS: Alanine Aminotransferase 48 U/L (7-40); Alkaline Phosphatase 175 U/L (46-116); Calcium 8.6 mg/dL (8.7-10.4); Glucose 163 mg/dL (74-106); Sodium 147 mmol/L (136-145); Total Protein 5.4 g/dL (5.7-8.2)
[2025-02-02 16:27] LABS: Blood Urea Nitrogen 81 mg/dL (9-23); Lactic Acid w/Reflex 4.0 mmol/L (0.4-2.0)
[2025-02-02 16:31] LABS: Base Excess -2.7 mmol/L (-2.0-3.0)
--- NOTE | 2025-02-02 16:39 | DVHNC2 ---
Other Procedure Procedure Femoral Arterial Line Procedure Note INDICATION: CVP, BP monitoring PROCEDURE SOCIAL SERVICE DIRECTOR: Milly Raymond ATTENDING PHYSICIAN:Alberto In Attendance Dr Denise Argueta CONSENT: During the informed consent discussion regarding the procedure, or treatment, I explained the following to the patient's family: a. Nature of the procedure or treatment and who will perform the procedure or treatment. b. Necessity for procedure and the possible benefits. c. Risks and complications (most common and serious). d. Alternative treatments and the risks, benefits and side effects of each (inc luding no treatment). e. Likelihood of the patient achieving his/her goals without this procedure and surgery treatment. f. Problems that might occur during the recuperation. g. Conflicts of interest, if any PROCEDURE SUMMARY: A time out was performed. My hands were washed immediately prior to the procedure. I wore a surgical cap, mask with protective eyewear, sterile gown and sterile gloves throughout the procedure. The L inguinal region was prepped using chlorhexidine scrub and draped in sterile fashion using a three quarter sheet drape and sterile towels. The femoral pulse was identified. Anesthesia was achieved using 1% lidocaine. Palpating the femoral pulse throughout the procedure, the introducer needle was inserted into the femoral artery. Arterial blood was withdrawn. The syringe was removed and a guidewire was advanced through the needle into the femoral artery. The needle was exchanged over the wire for an arterial catheter. The wire was removed and the catheter was secured to the skin using a suture. The patient tolerated the procedure without any hemodynamic compromise. At time of procedure completion, the catheter was connected to the entry level account representative and calibrated. Appropriate waveform and blood pressure tracing was observed. Estimated blood loss is 5cc. Indication INDICATION: CVP, BP monitoring Informed consent obtained: Yes Risks, benefits, and alternati: Yes Date of Service: Feb 02, 2025 Billing Provider: JONATHAN BRIONES DO Common Visit Codes: PROCEDURE ONLY MILLY RAYMOND Feb 02, 2025 16:39 JONATHAN BRIONES DO Feb 05, 2025 00:21
[2025-02-02 17:10] LABS: Base Excess -1.7 mmol/L (-2.0-3.0)
--- NOTE | 2025-02-02 17:50 | DVH ---
Upper Extremity Venous Duplex Clinical History: assess blood flow Comparison: US LT UPPER DVT on DOS: 01/31/25 Technique: Duplex Doppler evaluation of the venous system of the RIGHT lower neck and upper extremity including color Doppler and spectral/pulsed waveform analysis was performed. Findings: The internal jugular vein demonstrates appropriate compressibility and waveform variability. The subclavian vein is patent on color Doppler evaluation without intraluminal thrombus and demonstra lilia waveform variability. The visualized portion of the brachiocephalic vein is patent on color Doppler evaluation without intr aluminal thrombus and demonstrates waveform variability. The axillary vein demonstrates appropriate compressibility and waveform variability. The brachial veins demonstrate appropriate compressibility and patency on Doppler evaluation. The basilic vein demonstrates appropriate compressibility and patency on Doppler evaluation. The cephalic vein demonstrates no flow and thrombus consistent with superficial venous thrombosis Impression: 1. No deep venous thrombus identified in the RIGHT upper extremity vessels evaluated above. 2. No flow and thrombus noted in the right cephalic vein consistent with superficial venous thrombosi s. If clinical concern/symptoms persist or worsen, short-interval follow-up study is suggested.
[2025-02-02] MEDS: IPRATROPIUM BROM 0.5 MG/2.5ML INH SOL NEB SCH (18:50)
[2025-02-02] MEDS ORDERED: EPINEPHrine HCL 1 MG/10 ML SYRG IV ONE ×2 (19:27→19:28)
[2025-02-02] MEDS ORDERED: SODIUM BICARB 8.4% 50Meq/50ml SYR INJ IV ONE (19:28)
--- NOTE | 2025-02-02 22:09 | DVHPN2 ---
Consult Progress Note Objective vital signs Vital Sign Date Time Temp Pulse Resp B/P (MAP) Pulse Ox O2 Delivery O2 Flow Rate FiO2 02/02/25 21:59 62 24 139/49 (79) 97 100 02/02/25 20:00 98.7 98.7 02/02/25 17:38 Mechanical Ventilator+ Total Intake and Output 02/01/25 02/01/25 02/02/25 15:00 23:00 07:00 Intake Total 161.816 ml 880.317 ml 396.690 ml Balance 161.816 ml 880.317 ml 396.690 ml medications Current Medications Medications Dose Ordered Sig/Seth Route Start Time Stop Time Status Last Admin Dose Admin Acetaminophen 325 mg Q4HP PRN PO 01/10/25 00:30 01/22/25 00:29 325 MG Ondansetron HCl 4 mg Q4HP PRN IV 01/10/25 00:30 01/20/25 16:19 4 MG Atorvastatin Calcium 40 mg HS PO 01/10/25 22:00 02/01/25 22:22 40 MG Levothyroxine Sodium 125 mcg QAM@0600 PO 01/11/25 06:00 02/02/25 05:54 125 MCG Sodium Chloride 10 ml QSHIFT@10,22 IV 01/12/25 22:00 02/02/25 07:52 10 ML Dextrose 50 ml UD PRN IV 01/14/25 14:15 01/24/25 12:10 50 ML Fluconazole 100 mg POSTDI PRN PO 01/15/25 12:45 Cancel Ertapenem 0.5 gm/ Sodium Chloride 50 ml @ 100 mls/hr DAILY IV 01/19/25 10:00 02/02/25 07:51 100 MLS/HR Albumin Human 100 ml @ 100 mls/hr WD PRN IV 01/18/25 21:00 02/01/25 11:17 100 MLS/HR Albuterol 2.5 mg Q4HPRN PRN NEB 01/20/25 16:00 02/02/25 06:29 2.5 MG Vancomycin HCl 0 ml @ 0 mls/hr PER PHARMACY IV 01/21/25 12:15 Cancel Fentanyl Citrate 250 ml @ 2.5 mls/hr Q24H IV 01/23/25 13:45 02/02/25 20:23 15 MLS/HR Norepinephrine Bitartrate 32 mg/ Sodium Chloride 250 ml @ 0.938 mls/ hr Q24H IV 01/23/25 14:45 02/01/25 11:15 0.938 MLS/HR Enteral Nutritional Formula 1,000 ml 30ML/HR GT 01/23/25 18:00 01/26/25 23:26 1,000 ML Pantoprazole Sodium 40 mg BID IV 01/23/25 22:00 02/02/25 07:51 40 MG Sodium Chloride 1,000 ml @ 200 mls/hr Q5H IV 01/25/25 11:00 Cancel Amiodarone HCl 100 mg Q12HR PO 01/25/25 22:00 02/02/25 07:52 100 MG Midazolam HCl 100 ml @ 1 mls/hr Q24H IV 01/25/25 18:00 01/25/25 21:58 3 MLS/HR Diagnostic Test (Pha) 1 strip IQ4HR 01/28/25 12:00 02/02/25 20:17 1 STRIP Insulin Human Regular IQ4HR SC 01/28/25 12:00 02/02/25 20:22 6 UNITS Hydrocortisone Sodium Succinate 50 mg Q8HR IV 01/28/25 14:00 02/02/25 14:00 50 MG Heparin Sodium/ Dextrose 250 ml @ 12 mls/hr [id number] IV 01/31/25 23:00 02/02/25 16:30 12 MLS/HR Levalbuterol HCl 1.25 mg Q4HR NEB 02/02/25 14:30 02/02/25 21:58 1.25 MG Amiodarone HCl 250 ml @ 16.66 mls/ hr Q15H1M IV 02/02/25 21:00 02/02/25 21:18 16.66 MLS/HR Labetalol HCl 10 mg ONCE PRN IV 02/02/25 15:15 Ipratropium [place] 0.5 mg Q4HR NEB 02/02/25 18:00 02/02/25 21:58 0.5 MG laboratory and microbiology Laboratory Tests 02/02/25 15:34 Test 02/02/25 15:34 Range/Units Serum Glucose 163 H 74-106 mg/dL Problem List/Assessment/Plan Problem List/Assessment/Plan influenza a, covid, rsv negative BAL culture and blood cultures negative mrsa nares negative vancomycin trough therapuetic, levophed ongoing and high vent needs = levophed 4, fio2 70%, cardiology notes patient is off DAPT and at risk for instent thrombosis Plans: copd and chf exacerbation per cardiology and pulmonology team leukocytosis related to hydrocortisone use consider CT R foot to evaluate for abscess or hematoma when more clinically stable 6 weeks ertapenem anticipated. dialysis as tolerated maps>65 Dietary Evaluation Review Comments: Nutrition Recommendation 1) CCHO 60gm + renal standard diet 2) Nephro-santosh 1 tab daily 3) Lexx 1 pk daily 4) Monitor PO intake, lab values, weight trend, and I/O Expected Outcomes/Goals: To meet >75% estimated needs Wound to improve Fu 3-5 days CC Plasma Assessment Blood Product Administration S: [id number] CONY TAYLOR MD Feb 02, 2025 22:09
--- NOTE | 2025-02-02 22:57 | DVHPN2 ---
Subjective [facility] DOS: 02/02/2025 Patient seen and examined at bedside. Intubated on mechanical ventilator. Overnight events reviewed. Reviewed: Care Plan Changes from previous H/P or p: No Changes Objective Vitals Vital Signs Date Time Temp Pulse Resp B/P (MAP) Pulse Ox O2 Delivery O2 Flow Rate FiO2 02/02/25 21:59 62 24 139/49 (79) 97 100 02/02/25 20:00 98.7 98.7 02/02/25 17:38 Mechanical Ventilator+ Intake/Output Intake and Output 02/02/25 06:59 Intake Total 1450.823 ml Balance 1450.823 ml Intake Oral 110 ml IV Total 678.823 ml Tube Feeding 150 ml Blood Product 512 ml Exam Gen.: Patient lying in bed in medical ICU. Intubated on mechanical ventilator. Head: Normocephalic, atraumatic. Eyes: PERRLA. Ears: Normal external anatomy. Throat: Endotracheal tube and orogastric tube in place. Neck: Supple, trachea midline. Chest: Transmitted breath sounds bilaterally. Decreased air entry bilaterally. No wheezing. Bibasilar crackles. Cardiovascular: Positive S1, positive S2. Regular rate and rhythm. Abdomen: Positive bowel sounds in all 4 quadrants. Soft, nontender, nondistended. : Loft[place] in place. Normal external genitalia. Rectal: Deferred. Skin: Warm, dry. Right foot osteomyelitis. Extremities: 2+ radial pulses bilaterally. No lower extremity edema. Neuro: Off sedation General Appearance: mild distress, Other (Intubated) HEENT: Atraumatic, PERRLA Lungs: Clear to auscultation, Other (On vent, transmitted breath sounds bilaterally.) Cardiovascular: Normal S1, Normal S2 Abdomen: Normal bowel sounds, Soft, No tenderness, No hepatospenomegaly Musculoskeletal: Other (Unable to assess) Neuro: Other (Unable to assess) Skin: Dry, Intact, Other (Right foot necrosis) Psych/Mental Status: Other (Unable to assess) Medications Current Medications Medications Dose Ordered Sig/Seth Route Start Time Stop Time Status Last Admin Dose Admin Acetaminophen 325 mg Q4HP PRN PO 01/10/25 00:30 01/22/25 00:29 325 MG Ondansetron HCl 4 mg Q4HP PRN IV 01/10/25 00:30 01/20/25 16:19 4 MG Atorvastatin Calcium 40 mg HS PO 01/10/25 22:00 02/01/25 22:22 40 MG Levothyroxine Sodium 125 mcg QAM@0600 PO 01/11/25 06:00 02/02/25 05:54 125 MCG Sodium Chloride 10 ml QSHIFT@10,22 IV 01/12/25 22:00 02/02/25 07:52 10 ML Dextrose 50 ml UD PRN IV 01/14/25 14:15 01/24/25 12:10 50 ML Fluconazole 100 mg POSTDI PRN PO 01/15/25 12:45 Cancel Ertapenem 0.5 gm/ Sodium Chloride 50 ml @ 100 mls/hr DAILY IV 01/19/25 10:00 02/02/25 07:51 100 MLS/HR Albumin Human 100 ml @ 100 mls/hr WD PRN IV 01/18/25 21:00 02/01/25 11:17 100 MLS/HR Albuterol 2.5 mg Q4HPRN PRN NEB 01/20/25 16:00 02/02/25 06:29 2.5 MG Vancomycin HCl 0 ml @ 0 mls/hr PER PHARMACY IV 01/21/25 12:15 Cancel Fentanyl Citrate 250 ml @ 2.5 mls/hr Q24H IV 01/23/25 13:45 02/02/25 20:23 15 MLS/HR Norepinephrine Bitartrate 32 mg/ Sodium Chloride 250 ml @ 0.938 mls/ hr Q24H IV 01/23/25 14:45 02/01/25 11:15 0.938 MLS/HR Enteral Nutritional Formula 1,000 ml 30ML/HR GT 01/23/25 18:00 01/26/25 23:26 1,000 ML Pantoprazole Sodium 40 mg BID IV 01/23/25 22:00 02/02/25 07:51 40 MG Sodium Chloride 1,000 ml @ 200 mls/hr Q5H IV 01/25/25 11:00 Cancel Amiodarone HCl 100 mg Q12HR PO 01/25/25 22:00 02/02/25 07:52 100 MG Midazolam HCl 100 ml @ 1 mls/hr Q24H IV 01/25/25 18:00 01/25/25 21:58 3 MLS/HR Diagnostic Test (Pha) 1 strip IQ4HR 01/28/25 12:00 02/02/25 20:17 1 STRIP Insulin Human Regular IQ4HR SC 01/28/25 12:00 02/02/25 20:22 6 UNITS Hydrocortisone Sodium Succinate 50 mg Q8HR IV 01/28/25 14:00 02/02/25 14:00 50 MG Heparin Sodium/ Dextrose 250 ml @ 12 mls/hr [id number] IV 01/31/25 23:00 02/02/25 16:30 12 MLS/HR Levalbuterol HCl 1.25 mg Q4HR NEB 02/02/25 14:30 02/02/25 21:58 1.25 MG Amiodarone HCl 250 ml @ 16.66 mls/ hr Q15H1M IV 02/02/25 21:00 02/02/25 21:18 16.66 MLS/HR Labetalol HCl 10 mg ONCE PRN IV 02/02/25 15:15 Ipratropium [place] 0.5 mg Q4HR NEB 02/02/25 18:00 02/02/25 21:58 0.5 MG Laboratory Results Laboratory Tests 02/02/25 15:34 Chemistry Test 02/02/25 03:35 02/02/25 15:02 02/02/25 15:34 Albumin 3.1 g/dL (3.2-4.8) L 3.2 g/dL (3.2-4.8) Calcium Level 8.5 mg/dL (8.7-10.4) L 8.6 mg/dL (8.7-10.4) L Magnesium Level 2.5 mg/dL (1.6-2.6) 2.5 mg/dL (1.6-2.6) 2.6 mg/dL (1.6-2.6) Phosphorus Level 3.9 mg/dL (2.4-5.1) Total Protein 5.5 g/dL (5.7-8.2) L 5.4 g/dL (5.7-8.2) L Coagulation Test 02/02/25 03:35 02/02/25 15:34 Prothrombin Time 15.1 sec (9.3-11.8) H 15.8 sec (9.3-11.8) H Prothrombin Time INR 1.48 (0.9-1.15) H 1.56 (0.9-1.15) H Activated Partial Thromboplast Time 33.3 SEC (24.5-34.5) 64.8 SEC (24.5-34.5) H LFT Test 02/02/25 03:35 02/02/25 15:34 Alanine Aminotransferase (ALT) 50 U/L (7-40) H 48 U/L (7-40) H Alkaline Phosphatase 208 U/L (46-116) H 175 U/L (46-116) H Aspartate Amino Transferase (AST) 61 U/L (13-40) H 58 U/L (13-40) H Total Bilirubin 1.2 mg/dL (0.2-1.0) H 1.1 mg/dL (0.2-1.0) H Urinalysis Test 01/10/25 09:18 Urine Color Yellow (Yellow) Urine Clarity Turbid (Clear) H Urine pH 6.5 (5.0-9.0) Urine Specific [place] 1.019 (1.001-1.035) Urine Protein 2+ (Negative) H Urine Ketones Negative (Negative) Urine Blood Negative /uL (Negative) Urine Nitrite Negative (Negative) Urine Bilirubin Negative (Negative) Urine Urobilinogen Normal mg/dL (Negative) Urine Leukocyte Esterase Trace /uL (Negative) Urine RBC 7 /hpf (0 - 4) Urine Microscopic WBC 4 /HPF (0-5) Urine Squamous Epithelial Cells Few /hpf (<5) Urine Bacteria None seen /hpf (None Seen) Urine Yeast (Budding) Moderate /hpf (None Seen) Urine Glucose 1+ mg/dL (Normal) H Blood Gas Results Test 02/02/25 06:51 02/02/25 15:48 02/02/25 17:06 Arterial Blood pH 7.330 (7.350-7.450) 7.276 (7.350-7.450) 7.292 (7.350-7.450) FiO2 % 50.0 100.0 100.0 Microbiology Microbiology Date/Time Source Procedure Growth Status 02/01/25 05:00 Catheter Tip Aerobic Culture - Preliminary Resulted 01/24/25 10:06 Bronchial Washings Gram Stain - Final Complete 01/24/25 10:06 Bronchial Washings Respiratory Culture - Final Complete 01/23/25 19:15 Blood Blood Culture - Final NO GROWTH AFTER 5 DAYS OF INCUBATION. Complete 01/10/25 09:18 Voided Urine Urine Culture - Final Presumptive Sully albicans Yeast, not Sully albicans Complete Assessment/Plan Assessment/Plan Impression: Acute hypoxic respiratory failure On mechanical ventilator Acute CHF exacerbation End-stage renal disease, on hemodialysis Osteomyelitis Overweight Events: Remains on vent support On AC mode; RR 22, VT 400, PEEP 12, FiO2 50% Taper PEEP and FiO2 as tolerated Patient noted to desaturate with turns. Off sedation On Fentanyl drip 100 mcg/min ABG reviewed, compensated CXR shows no focal consolidation. Devices in place. CT chest demonstrates ground-glass opacities/interstitial lung opacities. Left upper extremity venous duplex reveals DVT in left axillary and brachial veins. Continue heparin drip per Pharmacy Pressors for hemodynamic support On Levophed Titrate to keep mean arterial pressure greater than 65 mmHg. Evaluate for PICC line placement Hemodialysis per Nephrology Nephrology recommendations appreciated. Continue bronchodilators. Continue antibiotics. Continue IV stress dose steroids, q.8 hours Accu-Cheks, ISS. Hemodialysis per Nephrology Nephrology recs appreciated Monitor renal function Monitor electrolytes. Supplement as necessary. Monitor ins and outs. Tube feeds for nutritional support DTI sacrum - wound care. Labs and imaging reviewed. Rest of plan as noted below. Plan: s/p intubation on mechanical ventilator. On AC mode; RR 22, VT 400, PEEP 12, FiO2 50% S/p bronchoscopy on 11/24/24 - Results from bronchial washings show no growth. Titrate FIO2 to keep O2 saturation above 90%. VAP bundle. Daily ABG and CXR while intubated Continue bronchodilators. Continue antibiotics. Follow up cultures. IV steroids Pressors for hemodynamic support Titrate to keep mean arterial pressure greater than 65 mmHg. Wound care. Monitor H&H. Hemodialysis per Nephrology Monitor renal function Monitor electrolytes. Supplement as necessary. Monitor ins and outs. Maintain euvolemia. GI prophylaxis. DVT prophylaxis. Prognosis: Poor given patient's multiple co-morbidities. Condition: Critical Rest of plan per hospitalist and other consultants. A total of 35 minutes of critical care time was spent reviewing the patient record, examining the patient, making a diagnostic and therapeutic plan, discussing this plan with the medical personnel, following up on diagnostic studies and following the patient for clinical stability excluding any and all procedures. At least 50% of this time was spent in direct, [id number] contact. Thank you, Dr. Bowie, for allowing me to participate in this patient's care. Further recommendations will depend on the patient's clinical course. Please do not hesitate to contact me if you have any questions or concerns. This medical document was created using an electronic medical record system with [employer] dictation system. Although these documentations are being carefully reviewed, there may still be some phonetic and typographical changes. The errors are purely typographical, due to imperfection on the software program, and do not reflect any compromise in the patient's medical care. Plan discussed with: Other (RN) My Orders Orders - ALCON GUTHRIE MD Procedure Category Date Status Time Abg W/ Co-Ox RT 02/02/25 Logged 06:00 Chest Portable XY 02/02/25 Resulted 08:05 PTPTT LAB 02/02/25 Logged 22:30 Complete Blood Count LAB 02/03/25 Verified 05:00 Visit Coding Pulmonary Billing Provider: ALCON GUTHRIE MD Date of Service if different f: Feb 02, 2025 Common Visit Codes: 93023-[id number] INP/OBS CARE(HIGH), 70266-SIOPLYLE CARE 30-74 MIN ALCON GUTHRIE MD Feb 02, 2025 22:57
[2025-02-03] VITALS (117 sets, daily range): BP systolic 83–179; BP diastolic 15–76; PULSE 56–99; RESP 18–25; TEMP 96.3–98.3; O2SAT 94–100
[2025-02-03 00:19] LABS: Prothrombin Time 16.7 sec (9.3-11.8)
[2025-02-03 00:20] LABS: INR 1.66 (0.9-1.15)
[2025-02-03 00:21] LABS: Partial Thromboplastin Time > 139.0 SEC (24.5-34.5)
[2025-02-03] MEDS: HEPARIN DRIP/D5W 100UNITS/ML 250 ML IV SCH ×2 (01:24→16:31)
[2025-02-03 03:15] LABS: Nucleated Red Blood Cells % 0.0 %
[2025-02-03 03:17] LABS: Hematocrit 18.4 % (36.0-46.0); Mean Corpuscular Hemoglobin 30.5 pg (28.0-32.0); Mean Corpuscular Volume 91.9 fL (80.0-100.0)
[2025-02-03 03:18] LABS: Hemoglobin 6.1 g/dL (12.2-16.2)
[2025-02-03 03:28] LABS: Chloride 106 mmol/L (98-107); Potassium 4.1 mmol/L (3.5-5.1)
[2025-02-03 03:29] LABS: Anion Gap 12 (5-15); Carbon Dioxide 29 mmol/L (20-31)
[2025-02-03 03:31] LABS: Calcium 8.3 mg/dL (8.7-10.4); Sodium 147 mmol/L (136-145)
[2025-02-03 03:34] LABS: BUN/Creatinine Ratio 19.6 (10.0-20.0)
[2025-02-03 04:01] LABS: Glucose 146 mg/dL (74-106)
[2025-02-03 04:02] LABS: Blood Urea Nitrogen 96 mg/dL (9-23)
[2025-02-03 05:50] LABS: Base Excess 1.4 mmol/L (-2.0-3.0)
--- NOTE | 2025-02-03 06:23 | DVH ---
CHEST RADIOGRAPH Indication: intubated Technique: Single frontal view of the chest was obtained COMPARISON: XY CHEST PORTABLE on DOS: 02/02/25, XY CHEST PORTABLE on DOS: 02/02/25, XY CHEST PORTABLE on DOS: 01/30/25, XY CHEST PORTABLE on DOS: 01/29/25, XY CHEST PORTABLE on DOS: 01/28/25 FINDINGS: Lines and Tubes: Unchanged. Left anterior chest wall dual lead cardiac pacing device. Lungs: Stable appearing diffuse increased prominence of the pulmonary vasculature and patchy multifoc al bilateral pulmonary airspace disease. Pleura: No effusion. No pneumothorax. Cardiomediastinal contours: Cardiomegaly. Bones: Unremarkable IMPRESSION: 1. Stable appearing diffuse increased prominence of the pulmonary vasculature and patchy multifocal b ilateral pulmonary airspace disease. 2. Cardiomegaly. 3. Lines and tubes unchanged.
[2025-02-03 08:16] LABS: INR 1.76 (0.9-1.15); Prothrombin Time 17.6 sec (9.3-11.8)
[2025-02-03 08:20] LABS: Partial Thromboplastin Time > 139.0 SEC (24.5-34.5)
--- NOTE | 2025-02-03 08:40 | CONS ---
Pharmacy Clinical Information: HEPARIN PER DVT PROTOCOL: APTT result of >139.0 received from draw on 02/03 @0734. Hold Heparin for 1 hour + decrease rate 300 units per hour. New rate is 600 units per hour (6ml/hr). Orders read back and confirmed with ALBERTINA Grissom @7343. Next APTT scheduled for 1530. MAISHA WHITE PHARMACIST Feb 03, 2025 08:40
[2025-02-03] MEDS: SODIUM CHL 0.9% 1000 ML BAG XX ONE (09:57)
--- NOTE | 2025-02-03 10:22 | RESUS ---
MARIO POWELL ASSESSSMENT History of Events History of Events: See EMR/notes. 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 Initial Information Date: Feb 02, 2025 Time: 15:25 Location of Arrest: ICU (Central) Arrest Witnessed: Yes CPR started initial time: 15:25 CPR started by whom: Hospital Staff Type of arrest: Cardiac, Adult, Witnessed Spontaneous Respirations: No Pulse Present: No Monitoring: ECG, Pulse Oximetry Crash Cart Opened and Supplies: Yes Airway Ventilation Breathing at Onset: Assisted (on mechanical vent already) Oxygen Delivery Method: Ambu-Bag Artificial Ventilation: Bag/Endo tube Comments: already on ventilator Circulation Circulation #1: Time: 15:25 Pulse Rate (adult): 0 Circulation Comment: PEA Circulation #2: Time: 15:27 Pulse Rate (adult): 111 Blood Pressure Systolic: 144 Blood Pressure Diastolic: 31 Circulation Comment: ROSC Defibrillation Defbrillation : Time Defibrillator Applied: 15:25 Medications & Response Medications and Responses #1: Medication Time: 15:26 ADULT Medications Given ADULT: Epinephrine 1 mg Route of Administration: IV Medications and Responses #2: Medication Time: 15:27 ADULT Medications Given ADULT: Sodium Bacarbinate 50 meq Route of Administration: IV Nurses Notes Woodrow Coma Scale Eye Opening: None (1) (SEDATED) [place]iman Coma Scale Verbal: None (1) (INTUBATED) Woodrow Coma Scale Motor: None (1) (SEDATED) Pupil Reaction: Sluggish Bedside Blood Glucose: 167 Time Code Ended Time Code Ended: 15:27 Post Arrest Status: Ventilated Outcome of code: Successful Family notified: Yes (DRS SPOKE WITH FAMILY IN ICU WAITING ROOM) Code Team Present: DR BRIONES, DR JIMÉNEZ RESIDENT, EDOUARD Sun RN ICU CHARGE, MICHAEL AMESLOKIE DRIVER, JUAN DIEGO MACHINE REPAIRMAN RESOURCE, BRIE RN, [place] RN, FANY RN, BABAK RT, HD NURSE, Post Resuscitation Neurologica Pupil Size: 3 ROSC Time of ROSC: 15:27 Pt Meets Criteria for Therapeu: No Micahel Cornell Feb 03, 2025 10:22 JONATHAN BRIONES DO Feb 05, 2025 00:21
--- NOTE | 2025-02-03 10:27 | DVHPN2 ---
Progress Note - Dictate Date Seen: Feb 03, 2025 Medical Necessity Reason Pt with a Central, PICC or Fol: Yes The following are medically ne: Central Line, Lofton Catheter Subjective On mechanical ventilation vital signs Vital Sign Date Time Temp Pulse Resp B/P (MAP) Pulse Ox O2 Delivery O2 Flow Rate FiO2 02/03/25 10:22 111 Ambu-Bag 02/03/25 10:05 97.7 24 169/68 97.7 02/03/25 10:00 80 02/03/25 10:00 100 Total Intake and Output 02/02/25 02/02/25 02/03/25 15:00 23:00 07:00 Intake Total 221.875 ml 507.9305 ml 188.258 ml Output Total 100 ml Balance 221.875 ml 507.9305 ml 88.258 ml medications Current Medications Medications Dose Ordered Sig/Seth Route Start Time Stop Time Status Last Admin Dose Admin Acetaminophen 325 mg Q4HP PRN PO 01/10/25 00:30 01/22/25 00:29 325 MG Ondansetron HCl 4 mg Q4HP PRN IV 01/10/25 00:30 01/20/25 16:19 4 MG Atorvastatin Calcium 40 mg HS PO 01/10/25 22:00 02/02/25 22:23 40 MG Levothyroxine Sodium 125 mcg QAM@0600 PO 01/11/25 06:00 02/03/25 06:27 125 MCG Sodium Chloride 10 ml QSHIFT@10,22 IV 01/12/25 22:00 02/03/25 07:25 10 ML Dextrose 50 ml UD PRN IV 01/14/25 14:15 01/24/25 12:10 50 ML Fluconazole 100 mg POSTDI PRN PO 01/15/25 12:45 Cancel Ertapenem 0.5 gm/ Sodium Chloride 50 ml @ 100 mls/hr DAILY IV 01/19/25 10:00 02/03/25 07:24 100 MLS/HR Albumin Human 100 ml @ 100 mls/hr WD PRN IV 01/18/25 21:00 02/03/25 09:56 100 MLS/HR Albuterol 2.5 mg Q4HPRN PRN NEB 01/20/25 16:00 02/02/25 06:29 2.5 MG Vancomycin HCl 0 ml @ 0 mls/hr PER PHARMACY IV 01/21/25 12:15 Cancel Fentanyl Citrate 250 ml @ 2.5 mls/hr Q24H IV 01/23/25 13:45 02/02/25 20:23 15 MLS/HR Norepinephrine Bitartrate 32 mg/ Sodium Chloride 250 ml @ 0.938 mls/ hr Q24H IV 01/23/25 14:45 02/01/25 11:15 0.938 MLS/HR Enteral Nutritional Formula 1,000 ml 30ML/HR GT 01/23/25 18:00 01/26/25 23:26 1,000 ML Pantoprazole Sodium 40 mg BID IV 01/23/25 22:00 02/03/25 07:24 40 MG Sodium Chloride 1,000 ml @ 200 mls/hr Q5H IV 01/25/25 11:00 Cancel Amiodarone HCl 100 mg Q12HR PO 01/25/25 22:00 02/02/25 07:52 100 MG Midazolam HCl 100 ml @ 1 mls/hr Q24H IV 01/25/25 18:00 01/25/25 21:58 3 MLS/HR Diagnostic Test (Pha) 1 strip IQ4HR 01/28/25 12:00 02/03/25 07:24 1 STRIP Insulin Human Regular IQ4HR SC 01/28/25 12:00 02/03/25 04:00 2 UNITS Hydrocortisone Sodium Succinate 50 mg Q8HR IV 01/28/25 14:00 02/03/25 05:15 50 MG Levalbuterol HCl 1.25 mg Q4HR NEB 02/02/25 14:30 02/03/25 05:43 1.25 MG Amiodarone HCl 250 ml @ 16.66 mls/ hr Q15H1M IV 02/02/25 21:00 02/03/25 01:20 16.66 MLS/HR Labetalol HCl 10 mg ONCE PRN IV 02/02/25 15:15 Ipratropium [place] 0.5 mg Q4HR NEB 02/02/25 18:00 02/03/25 05:43 0.5 MG Heparin Sodium/ Dextrose 250 ml @ 9 mls/hr Q24H IV 02/03/25 01:30 02/03/25 01:24 9 MLS/HR objective intubated and sedated Pulmonary: Diminished breath sounds at bases Cardiovascular S1-S2, no S3 or S4 Abdomen: Bowel sounds positive, soft no rebound tenderness Neurological: intubated and sedated Extremities: Right foot gangrenous, trace edema laboratory and microbiology Laboratory Tests 02/03/25 02:56 Test 02/03/25 02:56 Range/Units Serum Glucose 146 H 74-106 mg/dL Problem List Problem List ESRD on HD, HD nurse could not complete HD again yesterday due to patient coding and becoming bradycardic after she was given amiodarone drip, she also has developed severe edema in area of HD access, the whole arm is swollen, very difficult to cannulate, there was profuse bleeding from access cannulation sites due to patient being on anticoalgulation which has now been discontinued Acute hypoxic respiratory failure Shock secondary to sepsis Right foot osteomyelitis Pneumonia DM hypothyroidism Leukocytosis Anemia Hyperphosphatemia Secondary hyperparathyroidism Thrombocytopenia Assessment/Plan Placed temporary HD catheter Will try HD again today Doppler of right arm continue IV abx . Monitor H/H closely and transfuse prn Prognosis guarded Dietary Evaluation Review Comments: Nutrition Recommendation 1) CCHO 60gm + renal standard diet 2) Nephro-santosh 1 tab daily 3) Lexx 1 pk daily 4) Monitor PO intake, lab values, weight trend, and I/O Expected Outcomes/Goals: To meet >75% estimated needs Wound to improve Fu 3-5 days Plan discussed with: Other CC Plasma Assessment Blood Product Administration S: [id number] NEL MONAHAN MD Feb 03, 2025 10:27
--- NOTE | 2025-02-03 13:05 | DVHPN2 ---
Progress Note Date Seen: Feb 03, 2025 Resident Creating Document: MERLY THAKUR RESIDENT Medical Necessity Reason Pt with a Central, PICC or Fol: Yes The following are medically ne: Central Line, [place]on Catheter Subjective Review of Systems Patient seen and examined at bedside Sedated and on mechanical ventilation Patient had a cardiopulmonary arrest yesterday live with the ROSC Currently on low vasopressor requirements with Levophed Ventilator requirements increased with a PEEP of 12 and FiO2 80% H&H dropped On heparin drip due to upper extremity DVT Minimal gastric residuals Objective vital signs Vital Sign Date Time Temp Pulse Resp B/P (MAP) Pulse Ox O2 Delivery O2 Flow Rate FiO2 02/03/25 12:32 81 24 151/69 (96) 100 80 02/03/25 12:11 96.3 96.3 02/03/25 12:00 Mechanical Ventilator+ Total Intake and Output 02/02/25 02/02/25 02/03/25 15:00 23:00 07:00 Intake Total 221.875 ml 507.9305 ml 188.258 ml Output Total 100 ml Balance 221.875 ml 507.9305 ml 88.258 ml medications Current Medications Medications Dose Ordered Sig/Seth Route Start Time Stop Time Status Last Admin Dose Admin Acetaminophen 325 mg Q4HP PRN PO 01/10/25 00:30 01/22/25 00:29 325 MG Ondansetron HCl 4 mg Q4HP PRN IV 01/10/25 00:30 01/20/25 16:19 4 MG Atorvastatin Calcium 40 mg HS PO 01/10/25 22:00 02/02/25 22:23 40 MG Levothyroxine Sodium 125 mcg QAM@0600 PO 01/11/25 06:00 02/03/25 06:27 125 MCG Sodium Chloride 10 ml QSHIFT@10,22 IV 01/12/25 22:00 02/03/25 07:25 10 ML Dextrose 50 ml UD PRN IV 01/14/25 14:15 01/24/25 12:10 50 ML Fluconazole 100 mg POSTDI PRN PO 01/15/25 12:45 Cancel Ertapenem 0.5 gm/ Sodium Chloride 50 ml @ 100 mls/hr DAILY IV 01/19/25 10:00 02/03/25 07:24 100 MLS/HR Albumin Human 100 ml @ 100 mls/hr WD PRN IV 01/18/25 21:00 02/03/25 11:36 100 MLS/HR Albuterol 2.5 mg Q4HPRN PRN NEB 01/20/25 16:00 02/02/25 06:29 2.5 MG Vancomycin HCl 0 ml @ 0 mls/hr PER PHARMACY IV 01/21/25 12:15 Cancel Fentanyl Citrate 250 ml @ 2.5 mls/hr Q24H IV 01/23/25 13:45 02/02/25 20:23 15 MLS/HR Norepinephrine Bitartrate 32 mg/ Sodium Chloride 250 ml @ 0.938 mls/ hr Q24H IV 01/23/25 14:45 02/01/25 11:15 0.938 MLS/HR Enteral Nutritional Formula 1,000 ml 30ML/HR GT 01/23/25 18:00 01/26/25 23:26 1,000 ML Pantoprazole Sodium 40 mg BID IV 01/23/25 22:00 02/03/25 07:24 40 MG Sodium Chloride 1,000 ml @ 200 mls/hr Q5H IV 01/25/25 11:00 Cancel Amiodarone HCl 100 mg Q12HR PO 01/25/25 22:00 02/02/25 07:52 100 MG Midazolam HCl 100 ml @ 1 mls/hr Q24H IV 01/25/25 18:00 01/25/25 21:58 3 MLS/HR Diagnostic Test (Pha) 1 strip IQ4HR 01/28/25 12:00 02/03/25 11:57 1 STRIP Insulin Human Regular IQ4HR SC 01/28/25 12:00 02/03/25 04:00 2 UNITS Hydrocortisone Sodium Succinate 50 mg Q8HR IV 01/28/25 14:00 02/03/25 05:15 50 MG Levalbuterol HCl 1.25 mg Q4HR NEB 02/02/25 14:30 02/03/25 11:04 1.25 MG Amiodarone HCl 250 ml @ 16.66 mls/ hr Q15H1M IV 02/02/25 21:00 02/03/25 01:20 16.66 MLS/HR Labetalol HCl 10 mg ONCE PRN IV 02/02/25 15:15 Ipratropium [place] 0.5 mg Q4HR NEB 02/02/25 18:00 02/03/25 11:04 0.5 MG Heparin Sodium/ Dextrose 250 ml @ 9 mls/hr Q24H IV 02/03/25 01:30 02/03/25 01:24 9 MLS/HR Examination Gen - no pallor, no scleral icterus Skin - Patients skin is warm and dry. HEENT - normocephalic, atraumatic, dry mucous membranes. Neck - supple, no lymphadenopathy Pulmonary - decreased breath sounds on the left side cardiovascular - regular S1,S2 heard GI - soft abdomen. Bowel sounds hypoactive. Neurological - sedated and on mechanical ventilation laboratory and microbiology Laboratory Tests 02/03/25 02:56 Test 02/03/25 02:56 Range/Units Serum Glucose 146 H 74-106 mg/dL Microbiology Date/Time Source Procedure Growth Status 02/01/25 05:00 Catheter Tip Aerobic Culture - Preliminary Resulted 01/24/25 10:06 Bronchial Washings Gram Stain - Final Complete 01/24/25 10:06 Bronchial Washings Respiratory Culture - Final Complete 01/23/25 19:15 Blood Blood Culture - Final NO GROWTH AFTER 5 DAYS OF INCUBATION. Complete 01/10/25 09:18 Voided Urine Urine Culture - Final Presumptive Sully albicans Yeast, not Sully albicans Complete Problem List/Assessment/Plan Problem List/Assessment/Plan Assessment Possible GI bleed Sepsis likely from osteomyelitis Acute on chronic systolic heart failure Thrombocytopenia Coagulopathy PAT on CKD likely due to VMN Left upper extremity DVT Cardiopulmonary arrest s/p ROSC Plan - Protonix 40 mg IV b.i.d. - once the patient is hemodynamically stable, she may benefit from EGD - watch H&H - to be started on feeding through NG tube, check residuals qshift - currently on heparin for left upper extremity DVT Poor prognosis Plan discussed with Dr. Soto Plan discussed with: Other (ALBERTINA Mccormack) Dietary Evaluation Review Comments: Nutrition Recommendation 1) CCHO 60gm + renal standard diet 2) Nephro-santosh 1 tab daily 3) Lexx 1 pk daily 4) Monitor PO intake, lab values, weight trend, and I/O Expected Outcomes/Goals: To meet >75% estimated needs Wound to improve Fu 3-5 days CC Plasma Assessment Blood Product Administration S: [id number] MERLY THAKUR RESIDENT Feb 03, 2025 13:05
[2025-02-03 15:43] LABS: Hematocrit 26.9 % (36.0-46.0); Hemoglobin 8.7 g/dL (12.2-16.2); Mean Corpuscular Hemoglobin 29.8 pg (28.0-32.0); Mean Corpuscular Volume 91.7 fL (80.0-100.0); Nucleated Red Blood Cells % 0.0 %
[2025-02-03 16:13] LABS: INR 1.74 (0.9-1.15); Prothrombin Time 17.5 sec (9.3-11.8)
[2025-02-03 16:16] LABS: Partial Thromboplastin Time > 139.0 SEC (24.5-34.5)
--- NOTE | 2025-02-03 16:42 | CONS ---
Pharmacy Clinical Information: HEPARIN PER DVT PROTOCOL: APTT result of >139.0 received from draw on 02/03 @1526. Hold Heparin for 1 hour + decrease rate by 300 units per hour per PRx protocol. New rate is 300 units per hour (3ml/hr). New Platelet result also received, down to 55, ALBERTINA Grissom will speak to MD. Orders read back and confirmed with ALBERTINA Grissom @1630. ALBERTINA Grissom spoke to MD and reported back @ 1636 that we will be holding Heparin at this point. Placed order on hold, can resume at later time if MD feels pt stable enough to continue. MAISHA WHITE PHARMACIST Feb 03, 2025 16:42
--- NOTE | 2025-02-03 19:03 | DVHPN2 ---
[facility] DOS: 02/03/2025 Patient seen and examined at bedside. Intubated on mechanical ventilator. Overnight events reviewed. Reviewed: Care Plan Changes from previous H/P or p: No Changes Objective Vitals Vital Signs Date Time Temp Pulse Resp B/P (MAP) Pulse Ox O2 Delivery O2 Flow Rate FiO2 02/03/25 18:15 81 24 111/27 (55) 100 118/52 (74) 02/03/25 18:05 60 02/03/25 18:00 Mechanical Ventilator+ 02/03/25 16:00 96.6 96.6 Intake/Output Intake and Output 02/03/25 07:00 Intake Total 918.0635 ml Output Total 100 ml Balance 818.0635 ml Intake Oral 50 ml IV Total 868.0635 ml Stool Total 100 ml Exam Gen.: Patient lying in bed in medical ICU. Intubated on mechanical ventilator. Head: Normocephalic, atraumatic. Eyes: PERRLA. Ears: Normal external anatomy. Throat: Endotracheal tube and orogastric tube in place. Neck: Supple, trachea midline. Chest: Transmitted breath sounds bilaterally. Decreased air entry bilaterally. No wheezing. Bibasilar crackles. Cardiovascular: Positive S1, positive S2. Regular rate and rhythm. Abdomen: Positive bowel sounds in all 4 quadrants. Soft, nontender, nondistended. : Lofton in place. Normal external genitalia. Rectal: Deferred. Skin: Warm, dry. Right foot osteomyelitis. Extremities: 2+ radial pulses bilaterally. No lower extremity edema. Neuro: Off sedation General Appearance: mild distress, Other (Intubated) HEENT: Atraumatic, PERRLA Lungs: Clear to auscultation, Other (On vent, transmitted breath sounds bilaterally.) Cardiovascular: Normal S1, Normal S2 Abdomen: Normal bowel sounds, Soft, No tenderness, No hepatospenomegaly Musculoskeletal: Other (Unable to assess) Neuro: Other (Unable to assess) Skin: Dry, Intact, Other (Right foot necrosis) Psych/Mental Status: Other (Unable to assess) Medications Current Medications Medications Dose Ordered Sig/Seth Route Start Time Stop Time Status Last Admin Dose Admin Acetaminophen 325 mg Q4HP PRN PO 01/10/25 00:30 01/22/25 00:29 325 MG Ondansetron HCl 4 mg Q4HP PRN IV 01/10/25 00:30 01/20/25 16:19 4 MG Atorvastatin Calcium 40 mg HS PO 01/10/25 22:00 02/02/25 22:23 40 MG Levothyroxine Sodium 125 mcg QAM@0600 PO 01/11/25 06:00 02/03/25 06:27 125 MCG Sodium Chloride 10 ml QSHIFT@10,22 IV 01/12/25 22:00 02/03/25 07:25 10 ML Dextrose 50 ml UD PRN IV 01/14/25 14:15 01/24/25 12:10 50 ML Fluconazole 100 mg POSTDI PRN PO 01/15/25 12:45 Cancel Ertapenem 0.5 gm/ Sodium Chloride 50 ml @ 100 mls/hr DAILY IV 01/19/25 10:00 02/03/25 07:24 100 MLS/HR Albumin Human 100 ml @ 100 mls/hr WD PRN IV 01/18/25 21:00 02/03/25 11:36 100 MLS/HR Albuterol 2.5 mg Q4HPRN PRN NEB 01/20/25 16:00 02/02/25 06:29 2.5 MG Vancomycin HCl 0 ml @ 0 mls/hr PER PHARMACY IV 01/21/25 12:15 Cancel Fentanyl Citrate 250 ml @ 2.5 mls/hr Q24H IV 01/23/25 13:45 02/02/25 20:23 15 MLS/HR Norepinephrine Bitartrate 32 mg/ Sodium Chloride 250 ml @ 0.938 mls/ hr Q24H IV 01/23/25 14:45 02/01/25 11:15 0.938 MLS/HR Enteral Nutritional Formula 1,000 ml 30ML/HR GT 01/23/25 18:00 01/26/25 23:26 1,000 ML Pantoprazole Sodium 40 mg BID IV 01/23/25 22:00 02/03/25 07:24 40 MG Sodium Chloride 1,000 ml @ 200 mls/hr Q5H IV 01/25/25 11:00 Cancel Amiodarone HCl 100 mg Q12HR PO 01/25/25 22:00 02/02/25 07:52 100 MG Midazolam HCl 100 ml @ 1 mls/hr Q24H IV 01/25/25 18:00 01/25/25 21:58 3 MLS/HR Diagnostic Test (Pha) 1 strip IQ4HR 01/28/25 12:00 02/03/25 16:03 1 STRIP Insulin Human Regular IQ4HR SC 01/28/25 12:00 02/03/25 04:00 2 UNITS Hydrocortisone Sodium Succinate 50 mg Q8HR IV 01/28/25 14:00 02/03/25 13:34 50 MG Levalbuterol HCl 1.25 mg Q4HR NEB 02/02/25 14:30 02/03/25 18:05 1.25 MG Amiodarone HCl 250 ml @ 16.66 mls/ hr Q15H1M IV 02/02/25 21:00 02/03/25 01:20 16.66 MLS/HR Labetalol HCl 10 mg ONCE PRN IV 02/02/25 15:15 Ipratropium [place] 0.5 mg Q4HR NEB 02/02/25 18:00 02/03/25 18:05 0.5 MG Heparin Sodium/ Dextrose 250 ml @ 6 mls/hr Q24H IV 02/03/25 14:00 Hold Laboratory Results Laboratory Tests 02/03/25 02:56 02/03/25 15:26 Chemistry Test 02/03/25 02:56 Calcium Level 8.3 mg/dL (8.7-10.4) L Coagulation Test 02/02/25 22:51 02/03/25 07:34 02/03/25 15:26 Prothrombin Time 16.7 sec (9.3-11.8) H 17.6 sec (9.3-11.8) H 17.5 sec (9.3-11.8) H Prothrombin Time INR 1.66 (0.9-1.15) H 1.76 (0.9-1.15) H 1.74 (0.9-1.15) H Activated Partial Thromboplast Time > 139.0 SEC (24.5-34.5) *H > 139.0 SEC (24.5-34.5) *H > 139.0 SEC (24.5-34.5) *H Urinalysis Test 01/10/25 09:18 Urine Color Yellow (Yellow) Urine Clarity Turbid (Clear) H Urine pH 6.5 (5.0-9.0) Urine Specific [place] 1.019 (1.001-1.035) Urine Protein 2+ (Negative) H Urine Ketones Negative (Negative) Urine Blood Negative /uL (Negative) Urine Nitrite Negative (Negative) Urine Bilirubin Negative (Negative) Urine Urobilinogen Normal mg/dL (Negative) Urine Leukocyte Esterase Trace /uL (Negative) Urine RBC 7 /hpf (0 - 4) Urine Microscopic WBC 4 /HPF (0-5) Urine Squamous Epithelial Cells Few /hpf (<5) Urine Bacteria None seen /hpf (None Seen) Urine Yeast (Budding) Moderate /hpf (None Seen) Urine Glucose 1+ mg/dL (Normal) H Blood Gas Results Test 02/03/25 05:46 Arterial Blood pH 7.371 (7.350-7.450) FiO2 % 80.0 Microbiology Microbiology Date/Time Source Procedure Growth Status 02/01/25 05:00 Catheter Tip Aerobic Culture - Preliminary Resulted 01/24/25 10:06 Bronchial Washings Gram Stain - Final Complete 01/24/25 10:06 Bronchial Washings Respiratory Culture - Final Complete 01/23/25 19:15 Blood Blood Culture - Final NO GROWTH AFTER 5 DAYS OF INCUBATION. Complete 01/10/25 09:18 Voided Urine Urine Culture - Final Presumptive Sully albicans Yeast, not Sully albicans Complete Assessment/Plan Assessment/Plan Impression: Acute hypoxic respiratory failure On mechanical ventilator Acute CHF exacerbation End-stage renal disease, on hemodialysis Osteomyelitis Overweight Events: Remains on vent support On AC mode; RR 24, VT 400, PEEP 12, FiO2 80% Increased PEEP, FiO2 requirements Patient noted to desaturate with turns. Of note, patient had a cardiopulmonary arrest yesterday for 1 minute, ROSC achieved. Currently on low vasopressor requirements with Levophed Ventilator requirements increased with a PEEP of 12 and FiO2 80% H&H dropped On heparin drip due to upper extremity DVT Pressors for hemodynamic support On Levophed 4 mcg/min Titrate to keep mean arterial pressure greater than 65 mmHg. ABG reviewed, compensated CXR shows devices in place. Stable appearing diffuse increased prominence of the pulmonary vasculature and patchy multifocal bilateral pulmonary airspace disease. Cardiomegaly. CT chest demonstrated ground-glass opacities/interstitial lung opacities. Left upper extremity venous duplex revealed DVT in left axillary and brachial veins. Continue heparin drip per Pharmacy Monitor hemoglobin Transfuse if less than 7.0 g/dL. Hemodialysis per Nephrology - HD today, plan for 2.5 L removal Follow up Nephrology recommendations Monitor renal function Continue bronchodilators. Continue antibiotics. Continue IV stress dose steroids, q.8 hours Off amiodarone due to bradycardia Follow up Cardiology recs. Accu-Cheks, ISS. Tube feeds for nutritional support DTI sacrum - wound care. Labs and imaging reviewed. Rest of plan as noted below. Plan: s/p intubation on mechanical ventilator. On AC mode; RR 24, VT 400, PEEP 12, FiO2 80% Taper PEEP and FiO2 as tolerated S/p bronchoscopy on 11/24/24 - Results from bronchial washings show no growth. Titrate FIO2 to keep O2 saturation above 90%. VAP bundle. Daily ABG and CXR while intubated Continue bronchodilators. Continue antibiotics. Follow up cultures. IV steroids Pressors for hemodynamic support Titrate to keep mean arterial pressure greater than 65 mmHg. Accu-Cheks, ISS Wound care. Monitor H&H. Hemodialysis per Nephrology Monitor renal function Monitor electrolytes. Supplement as necessary. Monitor ins and outs. Maintain euvolemia. GI prophylaxis. DVT prophylaxis. Prognosis: Poor given patient's multiple co-morbidities. Condition: Critical Rest of plan per hospitalist and other consultants. A total of 35 minutes of critical care time was spent reviewing the patient record, examining the patient, making a diagnostic and therapeutic plan, discussing this plan with the medical personnel, following up on diagnostic studies and following the patient for clinical stability excluding any and all procedures. At least 50% of this time was spent in direct, [id number] contact. Thank you, Dr. Bowie, for allowing me to participate in this patient's care. Further recommendations will depend on the patient's clinical course. Please do not hesitate to contact me if you have any questions or concerns. This medical document was created using an electronic medical record system with [employer] dictation system. Although these documentations are being carefully reviewed, there may still be some phonetic and typographical changes. The errors are purely typographical, due to imperfection on the software program, and do not reflect any compromise in the patient's medical care. Plan discussed with: Other (ALBERTINA Mccormack) My Orders Orders - ALCON GUTHRIE MD Procedure Category Date Status Time Heparin Per Pharmacy ROB 02/03/25 In Process Protocol 01:09 Complete Blood Count LAB 02/04/25 Verified 04:00 Heparin Per Pharmacy ROB 02/03/25 In Process Protocol 08:30 Heparin Drip/D5w PHA 02/03/25 In Process 100units/Ml 14:00 Visit Coding Pulmonary Billing Provider: ALCON GUTHRIE MD Date of Service if different f: Feb 03, 2025 Common Visit Codes: 86576-[id number] INP/OBS CARE(HIGH), 20250-[id number] CARE 30-74 MIN ALCON GUTHRIE MD Feb 03, 2025 19:03
--- NOTE | 2025-02-03 22:15 | DVHPN2 ---
Consult Progress Note Objective vital signs Vital Sign Date Time Temp Pulse Resp B/P (MAP) Pulse Ox O2 Delivery O2 Flow Rate FiO2 02/03/25 22:11 98.2 85 24 137/56 98.2 02/03/25 22:11 94 60 02/03/25 18:00 Mechanical Ventilator+ Total Intake and Output 02/02/25 02/02/25 02/03/25 15:00 23:00 07:00 Intake Total 221.875 ml 507.9305 ml 188.258 ml Output Total 100 ml Balance 221.875 ml 507.9305 ml 88.258 ml medications Current Medications Medications Dose Ordered Sig/Seth Route Start Time Stop Time Status Last Admin Dose Admin Acetaminophen 325 mg Q4HP PRN PO 01/10/25 00:30 01/22/25 00:29 325 MG Ondansetron HCl 4 mg Q4HP PRN IV 01/10/25 00:30 01/20/25 16:19 4 MG Atorvastatin Calcium 40 mg HS PO 01/10/25 22:00 02/02/25 22:23 40 MG Levothyroxine Sodium 125 mcg QAM@0600 PO 01/11/25 06:00 02/03/25 06:27 125 MCG Sodium Chloride 10 ml QSHIFT@10,22 IV 01/12/25 22:00 02/03/25 07:25 10 ML Dextrose 50 ml UD PRN IV 01/14/25 14:15 01/24/25 12:10 50 ML Fluconazole 100 mg POSTDI PRN PO 01/15/25 12:45 Cancel Ertapenem 0.5 gm/ Sodium Chloride 50 ml @ 100 mls/hr DAILY IV 01/19/25 10:00 02/03/25 07:24 100 MLS/HR Albumin Human 100 ml @ 100 mls/hr WD PRN IV 01/18/25 21:00 02/03/25 11:36 100 MLS/HR Albuterol 2.5 mg Q4HPRN PRN NEB 01/20/25 16:00 02/02/25 06:29 2.5 MG Vancomycin HCl 0 ml @ 0 mls/hr PER PHARMACY IV 01/21/25 12:15 Cancel Fentanyl Citrate 250 ml @ 2.5 mls/hr Q24H IV 01/23/25 13:45 02/03/25 17:50 10 MLS/HR Norepinephrine Bitartrate 32 mg/ Sodium Chloride 250 ml @ 0.938 mls/ hr Q24H IV 01/23/25 14:45 02/01/25 11:15 0.938 MLS/HR Enteral Nutritional Formula 1,000 ml 30ML/HR GT 01/23/25 18:00 01/26/25 23:26 1,000 ML Pantoprazole Sodium 40 mg BID IV 01/23/25 22:00 02/03/25 07:24 40 MG Sodium Chloride 1,000 ml @ 200 mls/hr Q5H IV 01/25/25 11:00 Cancel Amiodarone HCl 100 mg Q12HR PO 01/25/25 22:00 02/02/25 07:52 100 MG Midazolam HCl 100 ml @ 1 mls/hr Q24H IV 01/25/25 18:00 01/25/25 21:58 3 MLS/HR Diagnostic Test (Pha) 1 strip IQ4HR 01/28/25 12:00 02/03/25 16:03 1 STRIP Insulin Human Regular IQ4HR SC 01/28/25 12:00 02/03/25 04:00 2 UNITS Hydrocortisone Sodium Succinate 50 mg Q8HR IV 01/28/25 14:00 02/03/25 13:34 50 MG Levalbuterol HCl 1.25 mg Q4HR NEB 02/02/25 14:30 02/03/25 22:05 1.25 MG Amiodarone HCl 250 ml @ 16.66 mls/ hr Q15H1M IV 02/02/25 21:00 02/03/25 01:20 16.66 MLS/HR Labetalol HCl 10 mg ONCE PRN IV 02/02/25 15:15 Ipratropium [place] 0.5 mg Q4HR NEB 02/02/25 18:00 02/03/25 22:05 0.5 MG Heparin Sodium/ Dextrose 250 ml @ 6 mls/hr Q24H IV 02/03/25 14:00 Hold laboratory and microbiology Laboratory Tests 02/03/25 15:26 02/03/25 02:56 Test 02/03/25 02:56 Range/Units Serum Glucose 146 H 74-106 mg/dL Problem List/Assessment/Plan Problem List/Assessment/Plan influenza a, covid, rsv negative BAL culture and blood cultures negative mrsa nares negative vancomycin trough therapuetic, levophed ongoing and high vent needs = levophed 4, fio2 70%, cardiology notes patient is off DAPT and at risk for instent thrombosis Plans: copd and chf exacerbation per cardiology and pulmonology team leukocytosis related to hydrocortisone use consider CT R foot to evaluate for abscess or hematoma when more clinically stable 6 weeks ertapenem anticipated. dialysis as tolerated maps>65 Dietary Evaluation Review Comments: Nutrition Recommendation 1) CCHO 60gm + renal standard diet 2) Nephro-santosh 1 tab daily 3) Lexx 1 pk daily 4) Monitor PO intake, lab values, weight trend, and I/O Expected Outcomes/Goals: To meet >75% estimated needs Wound to improve Fu 3-5 days CC Plasma Assessment Blood Product Administration S: [id number] CONY TAYLOR MD Feb 03, 2025 22:15
[2025-02-04] VITALS (107 sets, daily range): BP systolic 108–151; BP diastolic 14–91; PULSE 75–98; RESP 15–25; TEMP 97.6–98.6; O2SAT 92–100
[2025-02-04 05:06] LABS: Hematocrit 24.9 % (36.0-46.0); Hemoglobin 8.3 g/dL (12.2-16.2); Mean Corpuscular Hemoglobin 30.4 pg (28.0-32.0); Mean Corpuscular Volume 91.6 fL (80.0-100.0); Nucleated Red Blood Cells % 0.0 %
[2025-02-04 05:12] LABS: Alanine Aminotransferase 33 U/L (7-40); Albumin 3.4 g/dL (3.2-4.8); Anion Gap 15 (5-15); BUN/Creatinine Ratio 16.9 (10.0-20.0); Calcium 8.9 mg/dL (8.7-10.4); Carbon Dioxide 28 mmol/L (20-31); Chloride 104 mmol/L (98-107); Magnesium 2.3 mg/dL (1.6-2.6); Potassium 4.0 mmol/L (3.5-5.1)
[2025-02-04 05:17] LABS: Alkaline Phosphatase 130 U/L (46-116); Bilirubin, Total 1.4 mg/dL (0.2-1.0); Blood Urea Nitrogen 60 mg/dL (9-23); Glucose 152 mg/dL (74-106); Sodium 147 mmol/L (136-145); Total Protein 5.6 g/dL (5.7-8.2)
--- NOTE | 2025-02-04 05:30 | DVH ---
CHEST RADIOGRAPH Indication: intubated Technique: Single frontal view of the chest was obtained Comparison: XY CHEST PORTABLE on DOS: 02/03/25, XY CHEST PORTABLE on DOS: 02/02/25, XY CHEST PORTABLE on DOS: 02/02/25 IMPRESSION: There is cardiomegaly with a dual lead left cardiac device. Endotracheal tube and enteric tube appear unchanged. Diffuse alveolar airspace opacities and interstitial opacities appear similar suggesting pulmonary edema versus infectious process or ARDS. No sizable effusion. No pneumothorax.
[2025-02-04 07:18] LABS: Base Excess -0.7 mmol/L (-2.0-3.0)
--- NOTE | 2025-02-04 12:43 | DVHPN2 ---
Progress Note - Dictate Date Seen: Feb 04, 2025 Medical Necessity Reason Pt with a Central, PICC or Fol: Yes The following are medically ne: Central Line, [place] Catheter Subjective On mechanical ventilation vital signs Vital Sign Date Time Temp Pulse Resp B/P (MAP) Pulse Ox O2 Delivery O2 Flow Rate FiO2 02/04/25 12:17 83 24 112/22 (52) 100 40 02/04/25 12:00 Mechanical Ventilator+ 02/04/25 12:00 98.5 98.5 Total Intake and Output 02/03/25 02/03/25 02/04/25 15:00 23:00 07:00 Intake Total 425 ml 910 ml 532.0 ml Output Total 0 ml Balance 425 ml 910 ml 532.0 ml medications Current Medications Medications Dose Ordered Sig/Seth Route Start Time Stop Time Status Last Admin Dose Admin Acetaminophen 325 mg Q4HP PRN PO 01/10/25 00:30 01/22/25 00:29 325 MG Ondansetron HCl 4 mg Q4HP PRN IV 01/10/25 00:30 01/20/25 16:19 4 MG Atorvastatin Calcium 40 mg HS PO 01/10/25 22:00 02/03/25 22:48 40 MG Levothyroxine Sodium 125 mcg QAM@0600 PO 01/11/25 06:00 02/04/25 06:22 125 MCG Sodium Chloride 10 ml QSHIFT@10,22 IV 01/12/25 22:00 02/04/25 07:38 10 ML Dextrose 50 ml UD PRN IV 01/14/25 14:15 01/24/25 12:10 50 ML Fluconazole 100 mg POSTDI PRN PO 01/15/25 12:45 Cancel Ertapenem 0.5 gm/ Sodium Chloride 50 ml @ 100 mls/hr DAILY IV 01/19/25 10:00 02/04/25 07:38 100 MLS/HR Albumin Human 100 ml @ 100 mls/hr WD PRN IV 01/18/25 21:00 02/03/25 11:36 100 MLS/HR Albuterol 2.5 mg Q4HPRN PRN NEB 01/20/25 16:00 02/04/25 05:45 2.5 MG Vancomycin HCl 0 ml @ 0 mls/hr PER PHARMACY IV 01/21/25 12:15 Cancel Fentanyl Citrate 250 ml @ 2.5 mls/hr Q24H IV 01/23/25 13:45 02/04/25 12:30 12.5 MLS/HR Norepinephrine Bitartrate 32 mg/ Sodium Chloride 250 ml @ 0.938 mls/ hr Q24H IV 01/23/25 14:45 02/01/25 11:15 0.938 MLS/HR Enteral Nutritional Formula 1,000 ml 30ML/HR GT 01/23/25 18:00 01/26/25 23:26 1,000 ML Pantoprazole Sodium 40 mg BID IV 01/23/25 22:00 02/04/25 07:37 40 MG Sodium Chloride 1,000 ml @ 200 mls/hr Q5H IV 01/25/25 11:00 Cancel Amiodarone HCl 100 mg Q12HR PO 01/25/25 22:00 02/04/25 07:37 100 MG Midazolam HCl 100 ml @ 1 mls/hr Q24H IV 01/25/25 18:00 01/25/25 21:58 3 MLS/HR Diagnostic Test (Pha) 1 strip IQ4HR 01/28/25 12:00 02/04/25 12:22 1 STRIP Insulin Human Regular IQ4HR SC 01/28/25 12:00 02/04/25 12:25 3 UNITS Hydrocortisone Sodium Succinate 50 mg Q8HR IV 01/28/25 14:00 02/04/25 12:29 50 MG Levalbuterol HCl 1.25 mg Q4HR NEB 02/02/25 14:30 02/04/25 09:44 1.25 MG Amiodarone HCl 250 ml @ 16.66 mls/ hr Q15H1M IV 02/02/25 21:00 02/03/25 01:20 16.66 MLS/HR Labetalol HCl 10 mg ONCE PRN IV 02/02/25 15:15 Ipratropium [place] 0.5 mg Q4HR NEB 02/02/25 18:00 02/04/25 09:44 0.5 MG Heparin Sodium/ Dextrose 250 ml @ 6 mls/hr Q24H IV 02/03/25 14:00 Hold objective intubated and sedated Pulmonary: Diminished breath sounds at bases Cardiovascular S1-S2, no S3 or S4 Abdomen: Bowel sounds positive, soft no rebound tenderness Neurological: intubated and sedated Extremities: Right foot gangrenous, trace edema laboratory and microbiology Laboratory Tests 02/04/25 03:10 Test 02/04/25 03:10 Range/Units Serum Glucose 152 H 74-106 mg/dL Problem List Problem List ESRD on HD, HD nurses could not complete HD treatments as ordered since 02/01 due to multiple reasons: patient coding and becoming bradycardic after she was given amiodarone drip, she also developed severe edema in area of HD access, the whole arm is swollen, very difficult to cannulate, she has a superficial vein thrombosis according to US doppler, there was profuse bleeding from access cannulation sites due to patient being on heavy anticoalgulation which has now been discontinued A temporary HD catheter had to be placed Patient finally received a full HD treatment yesterday Acute hypoxic respiratory failure Shock secondary to sepsis Right foot osteomyelitis Pneumonia DM hypothyroidism Leukocytosis Anemia Hyperphosphatemia Secondary hyperparathyroidism Thrombocytopenia Assessment/Plan Placed temporary HD catheter HD to continue tomorrow continue IV abx . Monitor H/H closely and transfuse prn Prognosis guarded Dietary Evaluation Review Comments: Nutrition Recommendation 1) CCHO 60gm + renal standard diet 2) Nephro-santosh 1 tab daily 3) Lexx 1 pk daily 4) Monitor PO intake, lab values, weight trend, and I/O Expected Outcomes/Goals: To meet >75% estimated needs Wound to improve Fu 3-5 days Plan discussed with: Other CC Plasma Assessment Blood Product Administration S: [id number] NEL MONAHAN MD Feb 04, 2025 12:43
[2025-02-04] MEDS ORDERED: ERTAPENEM SOD INJ 0.5 GM in SODIUM CHL 0.9% 50 ML IV SCH (15:30)
[2025-02-04] MEDS: ENOXAPARIN SOD 80 MG/0.8ML SYRINGE SC SCH (16:04)
--- NOTE | 2025-02-04 21:16 | DVHPN2 ---
Reviewed: Care Plan, H&P Changes from previous H/P or p: No Changes General: Per HPI Objective Vitals Vital Signs Date Time Temp Pulse Resp B/P (MAP) Pulse Ox O2 Delivery O2 Flow Rate FiO2 02/04/25 20:08 79 24 138/52 (80) 100 40 02/04/25 17:51 Mechanical Ventilator+ 02/04/25 16:00 98.6 98.6 Intake/Output Intake and Output 02/04/25 07:00 Intake Total 1867.0 ml Output Total 0 ml Balance 1867.0 ml Intake Oral 20 ml IV Total 790.0 ml Tube Feeding 200 ml Blood Product 857 ml Stool Total 0 ml General Appearance: mild distress, Other (Intubated) HEENT: Atraumatic, PERRLA Lungs: Clear to auscultation, Other (On vent, transmitted breath sounds bilaterally.) Cardiovascular: Normal S1, Normal S2 Abdomen: Normal bowel sounds, Soft, No tenderness, No hepatospenomegaly Musculoskeletal: Other (Unable to assess) Neuro: Other (Unable to assess) Skin: Dry, Intact, Other (Right foot necrosis) Psych/Mental Status: Other (Unable to assess) Medications Current Medications Medications Dose Ordered Sig/Seth Route Start Time Stop Time Status Last Admin Dose Admin Acetaminophen 325 mg Q4HP PRN PO 01/10/25 00:30 01/22/25 00:29 325 MG Ondansetron HCl 4 mg Q4HP PRN IV 01/10/25 00:30 01/20/25 16:19 4 MG Atorvastatin Calcium 40 mg HS PO 01/10/25 22:00 02/03/25 22:48 40 MG Levothyroxine Sodium 125 mcg QAM@0600 PO 01/11/25 06:00 02/04/25 06:22 125 MCG Sodium Chloride 10 ml QSHIFT@10,22 IV 01/12/25 22:00 02/04/25 07:38 10 ML Dextrose 50 ml UD PRN IV 01/14/25 14:15 01/24/25 12:10 50 ML Fluconazole 100 mg POSTDI PRN PO 01/15/25 12:45 Cancel Albumin Human 100 ml @ 100 mls/hr WD PRN IV 01/18/25 21:00 02/03/25 11:36 100 MLS/HR Albuterol 2.5 mg Q4HPRN PRN NEB 01/20/25 16:00 02/04/25 05:45 2.5 MG Vancomycin HCl 0 ml @ 0 mls/hr PER PHARMACY IV 01/21/25 12:15 Cancel Fentanyl Citrate 250 ml @ 2.5 mls/hr Q24H IV 01/23/25 13:45 02/04/25 12:30 12.5 MLS/HR Norepinephrine Bitartrate 32 mg/ Sodium Chloride 250 ml @ 0.938 mls/ hr Q24H IV 01/23/25 14:45 02/01/25 11:15 0.938 MLS/HR Enteral Nutritional Formula 1,000 ml 30ML/HR GT 01/23/25 18:00 01/26/25 23:26 1,000 ML Pantoprazole Sodium 40 mg BID IV 01/23/25 22:00 02/04/25 07:37 40 MG Sodium Chloride 1,000 ml @ 200 mls/hr Q5H IV 01/25/25 11:00 Cancel Amiodarone HCl 100 mg Q12HR PO 01/25/25 22:00 02/04/25 07:37 100 MG Midazolam HCl 100 ml @ 1 mls/hr Q24H IV 01/25/25 18:00 01/25/25 21:58 3 MLS/HR Diagnostic Test (Pha) 1 strip IQ4HR 01/28/25 12:00 02/04/25 20:12 1 STRIP Insulin Human Regular IQ4HR SC 01/28/25 12:00 02/04/25 20:14 2 UNITS Hydrocortisone Sodium Succinate 50 mg Q8HR IV 01/28/25 14:00 02/04/25 12:29 50 MG Levalbuterol HCl 1.25 mg Q4HR NEB 02/02/25 14:30 02/04/25 17:57 1.25 MG Amiodarone HCl 250 ml @ 16.66 mls/ hr Q15H1M IV 02/02/25 21:00 02/03/25 01:20 16.66 MLS/HR Labetalol HCl 10 mg ONCE PRN IV 02/02/25 15:15 Ipratropium [place] 0.5 mg Q4HR NEB 02/02/25 18:00 02/04/25 17:57 0.5 MG Heparin Sodium/ Dextrose 250 ml @ 6 mls/hr Q24H IV 02/03/25 14:00 Hold Enoxaparin Sodium 70 mg DAILY SC 02/04/25 15:30 02/04/25 16:04 70 MG Ertapenem 0.5 gm/ Sodium Chloride 50 ml @ 100 mls/hr DAILY@POSTDI IV 02/04/25 15:30 Laboratory Results Laboratory Tests 02/04/25 03:10 Chemistry Test 02/04/25 03:10 Albumin 3.4 g/dL (3.2-4.8) Calcium Level 8.9 mg/dL (8.7-10.4) Magnesium Level 2.3 mg/dL (1.6-2.6) Phosphorus Level 5.2 mg/dL (2.4-5.1) H Total Protein 5.6 g/dL (5.7-8.2) L LFT Test 02/04/25 03:10 Alanine Aminotransferase (ALT) 33 U/L (7-40) Alkaline Phosphatase 130 U/L (46-116) H Aspartate Amino Transferase (AST) 30 U/L (13-40) Total Bilirubin 1.4 mg/dL (0.2-1.0) H Urinalysis Test 01/10/25 09:18 Urine Color Yellow (Yellow) Urine Clarity Turbid (Clear) H Urine pH 6.5 (5.0-9.0) Urine Specific [place] 1.019 (1.001-1.035) Urine Protein 2+ (Negative) H Urine Ketones Negative (Negative) Urine Blood Negative /uL (Negative) Urine Nitrite Negative (Negative) Urine Bilirubin Negative (Negative) Urine Urobilinogen Normal mg/dL (Negative) Urine Leukocyte Esterase Trace /uL (Negative) Urine RBC 7 /hpf (0 - 4) Urine Microscopic WBC 4 /HPF (0-5) Urine Squamous Epithelial Cells Few /hpf (<5) Urine Bacteria None seen /hpf (None Seen) Urine Yeast (Budding) Moderate /hpf (None Seen) Urine Glucose 1+ mg/dL (Normal) H Blood Gas Results Test 02/04/25 07:05 Arterial Blood pH 7.337 (7.350-7.450) FiO2 % 60.0 Microbiology Microbiology Date/Time Source Procedure Growth Status 02/01/25 05:00 Catheter Tip Aerobic Culture - Preliminary Resulted 01/24/25 10:06 Bronchial Washings Gram Stain - Final Complete 01/24/25 10:06 Bronchial Washings Respiratory Culture - Final Complete 01/23/25 19:15 Blood Blood Culture - Final NO GROWTH AFTER 5 DAYS OF INCUBATION. Complete 01/10/25 09:18 Voided Urine Urine Culture - Final Presumptive Sully albicans Yeast, not Sully albicans Complete Assessment/Plan Assessment/Plan 64 F w ESRD on HD [facility], NIDDM, HTN transferred from OSH for OM s/p trauma. Found to have significant PAD, s/p angio and stent. Seen with ams, increased WOB and hypotension, decision made with family to intubate. found thrombosis and axilary and brachial vein, overnight started on heparin, during HD today starting bleeding from fistula site. heparin discontinued, given protamine, FFP, PRBC, plt. now bleeding stopped. will hold heparin for now. physical exam intubated, sedated on mech vent b/l coarse rhonchi, thick white sputum on ett s1 s2 rrr abdomen soft trace LE edema labs ekg imaging reviewed assessment and plan acute hypoxic RF req mech vent acute metabolic encephalopathy ESRD on HD acute on chronic systolic HF aspiration PNA? vs fluid overload ARDS? right heart failure HFrEF 20% s/p AICD HLD R foot OM s/p I&D to bone NIDDM now w hypoglycemia hypothyroidism thrombocytopenic anemia CKD positive FOBT brachial and axilary vein thrombosis c/w mech vent c/w pressor, maintain SBP >90 HD per renal c/w sedation, maintain RAAS -1 to -2 somewhat euvolemic, will hold fluid trend lactate c/w invanz and vanc, ID recc appreciated pulm consult for bronch stress dose steroid hold platelet tf hold insulin, if hypoglycemic d50 start TF reculture podiatry send flu covid transfuse keep HB >7 platelets fFP s/p cardiopulmonary arrest suspected PE diet TF dvt ppx hold bleeding condition critical prognosis poor full code 02/02/2025: pt coded with pulseless and after 1 round of CPR, pt achieved ROSC. Pt's Levophed PE suspected but pt unable to have CTA done as FiO2 is high started on heparin drip critical care time 80 minutes excluding procedure Plan discussed with: Other My Orders Orders - JONATHAN BRIONES DO Procedure Category Date Status Time Complete Blood Count LAB 02/05/25 Verified 04:00 Basic Metabolic Panel LAB 02/05/25 Verified 04:00 Magnesium LAB 02/05/25 Verified 04:00 Chest Portable XY 02/05/25 Logged 04:00 Enoxaparin Sodium PHA 02/04/25 In Process (Lovenox) 15:30 Date of Service: Feb 02, 2025 Billing Provider: JONATHAN BRIONES DO Common Visit Codes: [id number] CARE 30-74 MIN, [id number] CARE-EACH +30MIN JONATHAN BRIONES DO Feb 04, 2025 21:16
--- NOTE | 2025-02-04 21:20 | DVHPN2 ---
Reviewed: Care Plan, H&P Changes from previous H/P or p: No Changes General: Per HPI Objective Vitals Vital Signs Date Time Temp Pulse Resp B/P (MAP) Pulse Ox O2 Delivery O2 Flow Rate FiO2 02/04/25 20:08 79 24 138/52 (80) 100 40 02/04/25 17:51 Mechanical Ventilator+ 02/04/25 16:00 98.6 98.6 Intake/Output Intake and Output 02/04/25 07:00 Intake Total 1867.0 ml Output Total 0 ml Balance 1867.0 ml Intake Oral 20 ml IV Total 790.0 ml Tube Feeding 200 ml Blood Product 857 ml Stool Total 0 ml General Appearance: mild distress, Other (Intubated) HEENT: Atraumatic, PERRLA Lungs: Clear to auscultation, Other (On vent, transmitted breath sounds bilaterally.) Cardiovascular: Normal S1, Normal S2 Abdomen: Normal bowel sounds, Soft, No tenderness, No hepatospenomegaly Musculoskeletal: Other (Unable to assess) Neuro: Other (Unable to assess) Skin: Dry, Intact, Other (Right foot necrosis) Psych/Mental Status: Other (Unable to assess) Medications Current Medications Medications Dose Ordered Sig/Seth Route Start Time Stop Time Status Last Admin Dose Admin Acetaminophen 325 mg Q4HP PRN PO 01/10/25 00:30 01/22/25 00:29 325 MG Ondansetron HCl 4 mg Q4HP PRN IV 01/10/25 00:30 01/20/25 16:19 4 MG Atorvastatin Calcium 40 mg HS PO 01/10/25 22:00 02/03/25 22:48 40 MG Levothyroxine Sodium 125 mcg QAM@0600 PO 01/11/25 06:00 02/04/25 06:22 125 MCG Sodium Chloride 10 ml QSHIFT@10,22 IV 01/12/25 22:00 02/04/25 07:38 10 ML Dextrose 50 ml UD PRN IV 01/14/25 14:15 01/24/25 12:10 50 ML Fluconazole 100 mg POSTDI PRN PO 01/15/25 12:45 Cancel Albumin Human 100 ml @ 100 mls/hr WD PRN IV 01/18/25 21:00 02/03/25 11:36 100 MLS/HR Albuterol 2.5 mg Q4HPRN PRN NEB 01/20/25 16:00 02/04/25 05:45 2.5 MG Vancomycin HCl 0 ml @ 0 mls/hr PER PHARMACY IV 01/21/25 12:15 Cancel Fentanyl Citrate 250 ml @ 2.5 mls/hr Q24H IV 01/23/25 13:45 02/04/25 12:30 12.5 MLS/HR Norepinephrine Bitartrate 32 mg/ Sodium Chloride 250 ml @ 0.938 mls/ hr Q24H IV 01/23/25 14:45 02/01/25 11:15 0.938 MLS/HR Enteral Nutritional Formula 1,000 ml 30ML/HR GT 01/23/25 18:00 01/26/25 23:26 1,000 ML Pantoprazole Sodium 40 mg BID IV 01/23/25 22:00 02/04/25 07:37 40 MG Sodium Chloride 1,000 ml @ 200 mls/hr Q5H IV 01/25/25 11:00 Cancel Amiodarone HCl 100 mg Q12HR PO 01/25/25 22:00 02/04/25 07:37 100 MG Midazolam HCl 100 ml @ 1 mls/hr Q24H IV 01/25/25 18:00 01/25/25 21:58 3 MLS/HR Diagnostic Test (Pha) 1 strip IQ4HR 01/28/25 12:00 02/04/25 20:12 1 STRIP Insulin Human Regular IQ4HR SC 01/28/25 12:00 02/04/25 20:14 2 UNITS Hydrocortisone Sodium Succinate 50 mg Q8HR IV 01/28/25 14:00 02/04/25 12:29 50 MG Levalbuterol HCl 1.25 mg Q4HR NEB 02/02/25 14:30 02/04/25 17:57 1.25 MG Amiodarone HCl 250 ml @ 16.66 mls/ hr Q15H1M IV 02/02/25 21:00 02/03/25 01:20 16.66 MLS/HR Labetalol HCl 10 mg ONCE PRN IV 02/02/25 15:15 Ipratropium [place] 0.5 mg Q4HR NEB 02/02/25 18:00 02/04/25 17:57 0.5 MG Heparin Sodium/ Dextrose 250 ml @ 6 mls/hr Q24H IV 02/03/25 14:00 Hold Enoxaparin Sodium 70 mg DAILY SC 02/04/25 15:30 02/04/25 16:04 70 MG Ertapenem 0.5 gm/ Sodium Chloride 50 ml @ 100 mls/hr DAILY@POSTDI IV 02/04/25 15:30 Laboratory Results Laboratory Tests 02/04/25 03:10 Chemistry Test 02/04/25 03:10 Albumin 3.4 g/dL (3.2-4.8) Calcium Level 8.9 mg/dL (8.7-10.4) Magnesium Level 2.3 mg/dL (1.6-2.6) Phosphorus Level 5.2 mg/dL (2.4-5.1) H Total Protein 5.6 g/dL (5.7-8.2) L LFT Test 02/04/25 03:10 Alanine Aminotransferase (ALT) 33 U/L (7-40) Alkaline Phosphatase 130 U/L (46-116) H Aspartate Amino Transferase (AST) 30 U/L (13-40) Total Bilirubin 1.4 mg/dL (0.2-1.0) H Urinalysis Test 01/10/25 09:18 Urine Color Yellow (Yellow) Urine Clarity Turbid (Clear) H Urine pH 6.5 (5.0-9.0) Urine Specific [place] 1.019 (1.001-1.035) Urine Protein 2+ (Negative) H Urine Ketones Negative (Negative) Urine Blood Negative /uL (Negative) Urine Nitrite Negative (Negative) Urine Bilirubin Negative (Negative) Urine Urobilinogen Normal mg/dL (Negative) Urine Leukocyte Esterase Trace /uL (Negative) Urine RBC 7 /hpf (0 - 4) Urine Microscopic WBC 4 /HPF (0-5) Urine Squamous Epithelial Cells Few /hpf (<5) Urine Bacteria None seen /hpf (None Seen) Urine Yeast (Budding) Moderate /hpf (None Seen) Urine Glucose 1+ mg/dL (Normal) H Blood Gas Results Test 02/04/25 07:05 Arterial Blood pH 7.337 (7.350-7.450) FiO2 % 60.0 Microbiology Microbiology Date/Time Source Procedure Growth Status 02/01/25 05:00 Catheter Tip Aerobic Culture - Preliminary Resulted 01/24/25 10:06 Bronchial Washings Gram Stain - Final Complete 01/24/25 10:06 Bronchial Washings Respiratory Culture - Final Complete 01/23/25 19:15 Blood Blood Culture - Final NO GROWTH AFTER 5 DAYS OF INCUBATION. Complete 01/10/25 09:18 Voided Urine Urine Culture - Final Presumptive Sully albicans Yeast, not Sully albicans Complete Labs and/or images reviewed: Labs reviewed by me, Image(s) reviewed by me Assessment/Plan Assessment/Plan 64 F w ESRD on HD [place], NIDDM, HTN transferred from OSH for OM s/p trauma. Found to have significant PAD, s/p angio and stent. Seen with ams, increased WOB and hypotension, decision made with family to intubate. found thrombosis and axilary and brachial vein, overnight started on heparin, during HD today starting bleeding from fistula site. heparin discontinued, given protamine, FFP, PRBC, plt. now bleeding stopped. will hold heparin for now. physical exam intubated, sedated on mech vent b/l coarse rhonchi, thick white sputum on ett s1 s2 rrr abdomen soft trace LE edema labs ekg imaging reviewed assessment and plan acute hypoxic RF req mech vent acute metabolic encephalopathy ESRD on HD acute on chronic systolic HF aspiration PNA? vs fluid overload ARDS? right heart failure HFrEF 20% s/p AICD HLD R foot OM s/p I&D to bone NIDDM now w hypoglycemia hypothyroidism thrombocytopenic anemia CKD positive FOBT brachial and axilary vein thrombosis c/w mech vent c/w pressor, maintain SBP >90 HD per renal c/w sedation, maintain RAAS -1 to -2 somewhat euvolemic, will hold fluid trend lactate c/w sarah and vanc, ID recc appreciated pulm consult for bronch stress dose steroid hold platelet tf hold insulin, if hypoglycemic d50 start TF reculture podiatry send flu covid transfuse keep HB >7 platelets fFP s/p cardiopulmonary arrest suspected PE diet TF dvt ppx hold bleeding condition critical prognosis poor full code 02/02/2025: pt coded with pulseless and after 1 round of CPR, pt achieved ROSC. Pt's Levophed PE suspected but pt unable to have CTA done as FiO2 is high started on heparin drip 02/03/2025: stable, PEEP decreased to 12 critical care time > 45 minutes excluding procedure Plan discussed with: Other (nursing staff) My Orders Orders - JONATHAN BRIONES DO Procedure Category Date Status Time Complete Blood Count LAB 02/05/25 Verified 04:00 Basic Metabolic Panel LAB 02/05/25 Verified 04:00 Magnesium LAB 02/05/25 Verified 04:00 Chest Portable XY 02/05/25 Logged 04:00 Enoxaparin Sodium PHA 02/04/25 In Process (Lovenox) 15:30 Date of Service: Feb 03, 2025 Billing Provider: JONATHAN BRIONES DO Common Visit Codes: [id number] CARE 30-74 MIN JONATHAN BRIONES DO Feb 04, 2025 21:20
--- NOTE | 2025-02-04 21:21 | DVHPN2 ---
Reviewed: Care Plan, H&P Changes from previous H/P or p: No Changes General: Per HPI Objective Vitals Vital Signs Date Time Temp Pulse Resp B/P (MAP) Pulse Ox O2 Delivery O2 Flow Rate FiO2 02/04/25 20:08 79 24 138/52 (80) 100 40 02/04/25 17:51 Mechanical Ventilator+ 02/04/25 16:00 98.6 98.6 Intake/Output Intake and Output 02/04/25 07:00 Intake Total 1867.0 ml Output Total 0 ml Balance 1867.0 ml Intake Oral 20 ml IV Total 790.0 ml Tube Feeding 200 ml Blood Product 857 ml Stool Total 0 ml General Appearance: mild distress, Other (Intubated) HEENT: Atraumatic, PERRLA Lungs: Clear to auscultation, Other (On vent, transmitted breath sounds bilaterally.) Cardiovascular: Normal S1, Normal S2 Abdomen: Normal bowel sounds, Soft, No tenderness, No hepatospenomegaly Musculoskeletal: Other (Unable to assess) Neuro: Other (Unable to assess) Skin: Dry, Intact, Other (Right foot necrosis) Psych/Mental Status: Other (Unable to assess) Medications Current Medications Medications Dose Ordered Sig/Seth Route Start Time Stop Time Status Last Admin Dose Admin Acetaminophen 325 mg Q4HP PRN PO 01/10/25 00:30 01/22/25 00:29 325 MG Ondansetron HCl 4 mg Q4HP PRN IV 01/10/25 00:30 01/20/25 16:19 4 MG Atorvastatin Calcium 40 mg HS PO 01/10/25 22:00 02/03/25 22:48 40 MG Levothyroxine Sodium 125 mcg QAM@0600 PO 01/11/25 06:00 02/04/25 06:22 125 MCG Sodium Chloride 10 ml QSHIFT@10,22 IV 01/12/25 22:00 02/04/25 07:38 10 ML Dextrose 50 ml UD PRN IV 01/14/25 14:15 01/24/25 12:10 50 ML Fluconazole 100 mg POSTDI PRN PO 01/15/25 12:45 Cancel Albumin Human 100 ml @ 100 mls/hr WD PRN IV 01/18/25 21:00 02/03/25 11:36 100 MLS/HR Albuterol 2.5 mg Q4HPRN PRN NEB 01/20/25 16:00 02/04/25 05:45 2.5 MG Vancomycin HCl 0 ml @ 0 mls/hr PER PHARMACY IV 01/21/25 12:15 Cancel Fentanyl Citrate 250 ml @ 2.5 mls/hr Q24H IV 01/23/25 13:45 02/04/25 12:30 12.5 MLS/HR Norepinephrine Bitartrate 32 mg/ Sodium Chloride 250 ml @ 0.938 mls/ hr Q24H IV 01/23/25 14:45 02/01/25 11:15 0.938 MLS/HR Enteral Nutritional Formula 1,000 ml 30ML/HR GT 01/23/25 18:00 01/26/25 23:26 1,000 ML Pantoprazole Sodium 40 mg BID IV 01/23/25 22:00 02/04/25 07:37 40 MG Sodium Chloride 1,000 ml @ 200 mls/hr Q5H IV 01/25/25 11:00 Cancel Amiodarone HCl 100 mg Q12HR PO 01/25/25 22:00 02/04/25 07:37 100 MG Midazolam HCl 100 ml @ 1 mls/hr Q24H IV 01/25/25 18:00 01/25/25 21:58 3 MLS/HR Diagnostic Test (Pha) 1 strip IQ4HR 01/28/25 12:00 02/04/25 20:12 1 STRIP Insulin Human Regular IQ4HR SC 01/28/25 12:00 02/04/25 20:14 2 UNITS Hydrocortisone Sodium Succinate 50 mg Q8HR IV 01/28/25 14:00 02/04/25 12:29 50 MG Levalbuterol HCl 1.25 mg Q4HR NEB 02/02/25 14:30 02/04/25 17:57 1.25 MG Amiodarone HCl 250 ml @ 16.66 mls/ hr Q15H1M IV 02/02/25 21:00 02/03/25 01:20 16.66 MLS/HR Labetalol HCl 10 mg ONCE PRN IV 02/02/25 15:15 Ipratropium [place] 0.5 mg Q4HR NEB 02/02/25 18:00 02/04/25 17:57 0.5 MG Heparin Sodium/ Dextrose 250 ml @ 6 mls/hr Q24H IV 02/03/25 14:00 Hold Enoxaparin Sodium 70 mg DAILY SC 02/04/25 15:30 02/04/25 16:04 70 MG Ertapenem 0.5 gm/ Sodium Chloride 50 ml @ 100 mls/hr DAILY@POSTDI IV 02/04/25 15:30 Laboratory Results Laboratory Tests 02/04/25 03:10 Chemistry Test 02/04/25 03:10 Albumin 3.4 g/dL (3.2-4.8) Calcium Level 8.9 mg/dL (8.7-10.4) Magnesium Level 2.3 mg/dL (1.6-2.6) Phosphorus Level 5.2 mg/dL (2.4-5.1) H Total Protein 5.6 g/dL (5.7-8.2) L LFT Test 02/04/25 03:10 Alanine Aminotransferase (ALT) 33 U/L (7-40) Alkaline Phosphatase 130 U/L (46-116) H Aspartate Amino Transferase (AST) 30 U/L (13-40) Total Bilirubin 1.4 mg/dL (0.2-1.0) H Urinalysis Test 01/10/25 09:18 Urine Color Yellow (Yellow) Urine Clarity Turbid (Clear) H Urine pH 6.5 (5.0-9.0) Urine Specific [place] 1.019 (1.001-1.035) Urine Protein 2+ (Negative) H Urine Ketones Negative (Negative) Urine Blood Negative /uL (Negative) Urine Nitrite Negative (Negative) Urine Bilirubin Negative (Negative) Urine Urobilinogen Normal mg/dL (Negative) Urine Leukocyte Esterase Trace /uL (Negative) Urine RBC 7 /hpf (0 - 4) Urine Microscopic WBC 4 /HPF (0-5) Urine Squamous Epithelial Cells Few /hpf (<5) Urine Bacteria None seen /hpf (None Seen) Urine Yeast (Budding) Moderate /hpf (None Seen) Urine Glucose 1+ mg/dL (Normal) H Blood Gas Results Test 02/04/25 07:05 Arterial Blood pH 7.337 (7.350-7.450) FiO2 % 60.0 Microbiology Microbiology Date/Time Source Procedure Growth Status 02/01/25 05:00 Catheter Tip Aerobic Culture - Preliminary Resulted 01/24/25 10:06 Bronchial Washings Gram Stain - Final Complete 01/24/25 10:06 Bronchial Washings Respiratory Culture - Final Complete 01/23/25 19:15 Blood Blood Culture - Final NO GROWTH AFTER 5 DAYS OF INCUBATION. Complete 01/10/25 09:18 Voided Urine Urine Culture - Final Presumptive Sully albicans Yeast, not Sully albicans Complete Assessment/Plan Assessment/Plan 64 F w ESRD on HD [place], NIDDM, HTN transferred from OSH for OM s/p trauma. Found to have significant PAD, s/p angio and stent. Seen with ams, increased WOB and hypotension, decision made with family to intubate. found thrombosis and axilary and brachial vein, overnight started on heparin, during HD today starting bleeding from fistula site. heparin discontinued, given protamine, FFP, PRBC, plt. now bleeding stopped. will hold heparin for now. physical exam intubated, sedated on mech vent b/l coarse rhonchi, thick white sputum on ett s1 s2 rrr abdomen soft trace LE edema labs ekg imaging reviewed assessment and plan acute hypoxic RF req mech vent acute metabolic encephalopathy ESRD on HD acute on chronic systolic HF aspiration PNA? vs fluid overload ARDS? right heart failure HFrEF 20% s/p AICD HLD R foot OM s/p I&D to bone NIDDM now w hypoglycemia hypothyroidism thrombocytopenic anemia CKD positive FOBT brachial and axilary vein thrombosis c/w mech vent c/w pressor, maintain SBP >90 HD per renal c/w sedation, maintain RAAS -1 to -2 somewhat euvolemic, will hold fluid trend lactate c/w invanz and vanc, ID recc appreciated pulm consult for bronch stress dose steroid hold platelet tf hold insulin, if hypoglycemic d50 start TF reculture podiatry send flu covid transfuse keep HB >7 platelets fFP s/p cardiopulmonary arrest suspected PE diet TF dvt ppx hold bleeding condition critical prognosis poor full code 02/02/2025: pt coded with pulseless and after 1 round of CPR, pt achieved ROSC. Pt's Levophed PE suspected but pt unable to have CTA done as FiO2 is high started on heparin drip 02/03/2025: stable, PEEP decreased to 12 02/04/2025 improving, remains on vent stopped heparin due to low platelets yesterday started on heparin subQ (renal dose) critical care time > 45 minutes excluding procedure Plan discussed with: Daughter My Orders Orders - BRIONES,JONATHAN T DO Procedure Category Date Status Time Complete Blood Count LAB 02/05/25 Verified 04:00 Basic Metabolic Panel LAB 02/05/25 Verified 04:00 Magnesium LAB 02/05/25 Verified 04:00 Chest Portable XY 02/05/25 Logged 04:00 Enoxaparin Sodium PHA 02/04/25 In Process (Lovenox) 15:30 Date of Service: Feb 04, 2025 Billing Provider: JONATHAN BRIONES DO Common Visit Codes: [id number] CARE 30-74 MIN JONATHAN BRIONES DO Feb 04, 2025 21:21
--- NOTE | 2025-02-04 23:46 | DVHPN2 ---
[facility] DOS: 02/04/2025 Patient seen and examined at bedside. Intubated on mechanical ventilator. Overnight events reviewed. Reviewed: Care Plan, H&P Changes from previous H/P or p: No Changes General: Per HPI Objective Vitals Vital Signs Date Time Temp Pulse Resp B/P (MAP) Pulse Ox O2 Delivery O2 Flow Rate FiO2 02/04/25 23:15 76 24 126/28 (60) 100 126/53 (77) 02/04/25 22:00 40 02/04/25 22:00 Mechanical Ventilator+ 02/04/25 20:00 98.2 98.2 Intake/Output Intake and Output 02/04/25 07:00 Intake Total 1867.0 ml Output Total 0 ml Balance 1867.0 ml Intake Oral 20 ml IV Total 790.0 ml Tube Feeding 200 ml Blood Product 857 ml Stool Total 0 ml Exam Gen.: Patient lying in bed in medical ICU. Intubated on mechanical ventilator. Head: Normocephalic, atraumatic. Eyes: PERRLA. Ears: Normal external anatomy. Throat: Endotracheal tube and orogastric tube in place. Neck: Supple, trachea midline. Chest: Transmitted breath sounds bilaterally. Decreased air entry bilaterally. No wheezing. Bibasilar crackles. Cardiovascular: Positive S1, positive S2. Regular rate and rhythm. Abdomen: Positive bowel sounds in all 4 quadrants. Soft, nontender, nondistended. : [place] in place. Normal external genitalia. Rectal: Deferred. Skin: Warm, dry. Right foot osteomyelitis. Extremities: 2+ radial pulses bilaterally. No lower extremity edema. Neuro: Off sedation General Appearance: mild distress, Other (Intubated) HEENT: Atraumatic, PERRLA Lungs: Clear to auscultation, Other (On vent, transmitted breath sounds bilaterally.) Cardiovascular: Normal S1, Normal S2 Abdomen: Normal bowel sounds, Soft, No tenderness, No hepatospenomegaly Musculoskeletal: Other (Unable to assess) Neuro: Other (Unable to assess) Skin: Dry, Intact, Other (Right foot necrosis) Psych/Mental Status: Other (Unable to assess) Medications Current Medications Medications Dose Ordered Sig/Seth Route Start Time Stop Time Status Last Admin Dose Admin Acetaminophen 325 mg Q4HP PRN PO 01/10/25 00:30 01/22/25 00:29 325 MG Ondansetron HCl 4 mg Q4HP PRN IV 01/10/25 00:30 01/20/25 16:19 4 MG Atorvastatin Calcium 40 mg HS PO 01/10/25 22:00 02/04/25 22:32 40 MG Levothyroxine Sodium 125 mcg QAM@0600 PO 01/11/25 06:00 02/04/25 06:22 125 MCG Sodium Chloride 10 ml QSHIFT@, IV 01/12/25 22:00 02/04/25 22:27 10 ML Dextrose 50 ml UD PRN IV 01/14/25 14:15 01/24/25 12:10 50 ML Fluconazole 100 mg POSTDI PRN PO 01/15/25 12:45 Cancel Albumin Human 100 ml @ 100 mls/hr WD PRN IV 01/18/25 21:00 02/03/25 11:36 100 MLS/HR Albuterol 2.5 mg Q4HPRN PRN NEB 01/20/25 16:00 02/04/25 05:45 2.5 MG Vancomycin HCl 0 ml @ 0 mls/hr PER PHARMACY IV 01/21/25 12:15 Cancel Fentanyl Citrate 250 ml @ 2.5 mls/hr Q24H IV 01/23/25 13:45 02/04/25 12:30 12.5 MLS/HR Norepinephrine Bitartrate 32 mg/ Sodium Chloride 250 ml @ 0.938 mls/ hr Q24H IV 01/23/25 14:45 02/01/25 11:15 0.938 MLS/HR Enteral Nutritional Formula 1,000 ml 30ML/HR GT 01/23/25 18:00 01/26/25 23:26 1,000 ML Pantoprazole Sodium 40 mg BID IV 01/23/25 22:00 02/04/25 22:28 40 MG Sodium Chloride 1,000 ml @ 200 mls/hr Q5H IV 01/25/25 11:00 Cancel Amiodarone HCl 100 mg Q12HR PO 01/25/25 22:00 02/04/25 22:31 100 MG Midazolam HCl 100 ml @ 1 mls/hr Q24H IV 01/25/25 18:00 01/25/25 21:58 3 MLS/HR Diagnostic Test (Pha) 1 strip IQ4HR 01/28/25 12:00 02/04/25 20:12 1 STRIP Insulin Human Regular IQ4HR SC 01/28/25 12:00 02/04/25 20:14 2 UNITS Hydrocortisone Sodium Succinate 50 mg Q8HR IV 01/28/25 14:00 02/04/25 22:35 50 MG Levalbuterol HCl 1.25 mg Q4HR NEB 02/02/25 14:30 02/04/25 21:33 1.25 MG Amiodarone HCl 250 ml @ 16.66 mls/ hr Q15H1M IV 02/02/25 21:00 02/03/25 01:20 16.66 MLS/HR Labetalol HCl 10 mg ONCE PRN IV 02/02/25 15:15 Ipratropium [place] 0.5 mg Q4HR NEB 02/02/25 18:00 02/04/25 21:33 0.5 MG Heparin Sodium/ Dextrose 250 ml @ 6 mls/hr Q24H IV 02/03/25 14:00 Hold Enoxaparin Sodium 70 mg DAILY SC 02/04/25 15:30 02/04/25 16:04 70 MG Ertapenem 0.5 gm/ Sodium Chloride 50 ml @ 100 mls/hr DAILY@POSTDI IV 02/04/25 15:30 Laboratory Results Laboratory Tests 02/04/25 03:10 Chemistry Test 02/04/25 03:10 Albumin 3.4 g/dL (3.2-4.8) Calcium Level 8.9 mg/dL (8.7-10.4) Magnesium Level 2.3 mg/dL (1.6-2.6) Phosphorus Level 5.2 mg/dL (2.4-5.1) H Total Protein 5.6 g/dL (5.7-8.2) L LFT Test 02/04/25 03:10 Alanine Aminotransferase (ALT) 33 U/L (7-40) Alkaline Phosphatase 130 U/L (46-116) H Aspartate Amino Transferase (AST) 30 U/L (13-40) Total Bilirubin 1.4 mg/dL (0.2-1.0) H Urinalysis Test 01/10/25 09:18 Urine Color Yellow (Yellow) Urine Clarity Turbid (Clear) H Urine pH 6.5 (5.0-9.0) Urine Specific [place] 1.019 (1.001-1.035) Urine Protein 2+ (Negative) H Urine Ketones Negative (Negative) Urine Blood Negative /uL (Negative) Urine Nitrite Negative (Negative) Urine Bilirubin Negative (Negative) Urine Urobilinogen Normal mg/dL (Negative) Urine Leukocyte Esterase Trace /uL (Negative) Urine RBC 7 /hpf (0 - 4) Urine Microscopic WBC 4 /HPF (0-5) Urine Squamous Epithelial Cells Few /hpf (<5) Urine Bacteria None seen /hpf (None Seen) Urine Yeast (Budding) Moderate /hpf (None Seen) Urine Glucose 1+ mg/dL (Normal) H Blood Gas Results Test 02/04/25 07:05 Arterial Blood pH 7.337 (7.350-7.450) FiO2 % 60.0 Microbiology Microbiology Date/Time Source Procedure Growth Status 02/01/25 05:00 Catheter Tip Aerobic Culture - Preliminary Resulted 01/24/25 10:06 Bronchial Washings Gram Stain - Final Complete 01/24/25 10:06 Bronchial Washings Respiratory Culture - Final Complete 01/23/25 19:15 Blood Blood Culture - Final NO GROWTH AFTER 5 DAYS OF INCUBATION. Complete 01/10/25 09:18 Voided Urine Urine Culture - Final Presumptive Sully albicans Yeast, not Sully albicans Complete Assessment/Plan Assessment/Plan Impression: Acute hypoxic respiratory failure On mechanical ventilator Acute CHF exacerbation End-stage renal disease, on hemodialysis Osteomyelitis Overweight Events: Remains on vent support On AC mode; RR 24, VT 400, PEEP 12, FiO2 60% Reduce PEEP to 10 cmH2O. Patient noted to desaturate with turns. On Fentanyl drip for analgesia. Of note, patient had a cardiopulmonary arrest on 02/02/25 for 1 minute, ROSC achieved. Started on low vasopressor requirements with Levophed - currently off Levophed Off Levophed, hemodynamically stable. ABG reviewed, notable for acidemia CXR shows devices in place. Cardiomegaly with a dual lead left cardiac device. Diffuse alveolar airspace opacities and interstitial opacities appear similar suggesting pulmonary edema versus infectious process or ARDS. CT chest demonstrated ground-glass opacities/interstitial lung opacities. Left upper extremity venous duplex revealed DVT in left axillary and brachial veins. Heparin drip per Pharmacy - currently off Monitor hemoglobin Transfuse if less than 7.0 g/dL. Hemodialysis per Nephrology - S/p HD yesterday Follow up Nephrology recommendations Monitor renal function Continue bronchodilators. Continue antibiotics. Continue IV stress dose steroids, q.8 hours Off amiodarone due to bradycardia Follow up Cardiology recs. Accu-Cheks, ISS. Tube feeds for nutritional support DTI sacrum - wound care. Note, if PEEP reaches 8 cmH2O, can consider CPAP in the AM. Labs and imaging reviewed. Rest of plan as noted below. Plan: s/p intubation on mechanical ventilator. On AC mode; RR 24, VT 400, PEEP 12-->10, FiO2 60% Taper PEEP and FiO2 as tolerated S/p bronchoscopy on 11/24/24 - Results from bronchial washings show no growth. Titrate FIO2 to keep O2 saturation above 90%. VAP bundle. Daily ABG and CXR while intubated Continue bronchodilators. Continue antibiotics. Follow up cultures. IV steroids Pressors for hemodynamic support Titrate to keep mean arterial pressure greater than 65 mmHg. Accu-Cheks, ISS Wound care. Monitor H&H. Hemodialysis per Nephrology Monitor renal function Monitor electrolytes. Supplement as necessary. Monitor ins and outs. Maintain euvolemia. GI prophylaxis. DVT prophylaxis. Prognosis: Poor given patient's multiple co-morbidities. Condition: Critical Rest of plan per hospitalist and other consultants. A total of 35 minutes of critical care time was spent reviewing the patient record, examining the patient, making a diagnostic and therapeutic plan, discussing this plan with the medical personnel, following up on diagnostic studies and following the patient for clinical stability excluding any and all procedures. At least 50% of this time was spent in direct, [id number] contact. Thank you, Dr. Bowie, for allowing me to participate in this patient's care. Further recommendations will depend on the patient's clinical course. Please do not hesitate to contact me if you have any questions or concerns. This medical document was created using an electronic medical record system with [employer] dictation system. Although these documentations are being carefully reviewed, there may still be some phonetic and typographical changes. The errors are purely typographical, due to imperfection on the software program, and do not reflect any compromise in the patient's medical care. Plan discussed with: Other (ALBERTINA Mccormack) My Orders Orders - ALCON GUTHRIE MD Procedure Category Date Status Time Abg W/ Co-Ox RT 02/04/25 Logged 06:00 Ventilator Orders RT 02/04/25 Transmitted 12:00 Ventilator Orders RT 02/04/25 Transmitted 16:02 Visit Coding Pulmonary Billing Provider: ALCON GUTHRIE MD Date of Service if different f: Feb 04, 2025 Common Visit Codes: [id number] INP/OBS CARE(HIGH), [id number] CARE 30-74 MIN ALCON GUTHRIE MD Feb 04, 2025 23:46
[2025-02-05] VITALS (105 sets, daily range): BP systolic 73–162; BP diastolic 12–101; PULSE 74–163; RESP 15–26; TEMP 96.8–98.4; O2SAT 81–100
[2025-02-05 04:45] LABS: Hematocrit 25.7 % (36.0-46.0); Hemoglobin 8.5 g/dL (12.2-16.2); Mean Corpuscular Hemoglobin 30.2 pg (28.0-32.0); Mean Corpuscular Volume 90.8 fL (80.0-100.0); Nucleated Red Blood Cells % 0.0 %
[2025-02-05 04:57] LABS: Anion Gap 14 (5-15); Carbon Dioxide 27 mmol/L (20-31); Chloride 105 mmol/L (98-107); Potassium 4.1 mmol/L (3.5-5.1)
[2025-02-05 04:58] LABS: Calcium 9.0 mg/dL (8.7-10.4)
[2025-02-05 05:00] LABS: Sodium 146 mmol/L (136-145)
--- NOTE | 2025-02-05 05:02 | DVH ---
CHEST RADIOGRAPH Indication: intubated Technique: Single frontal view of the chest was obtained COMPARISON: XY CHEST PORTABLE on DOS: 02/04/25, XY CHEST PORTABLE on DOS: 02/03/25, XY CHEST PORTABLE o n DOS: 02/02/25, XY CHEST PORTABLE on DOS: 02/02/25, XY CHEST PORTABLE on DOS: 01/30/25 FINDINGS: Lines and Tubes: Unchanged. Left anterior chest wall cardiac pacing device. Lungs: Grossly stable appearing extensive multifocal bilateral pulmonary airspace disease with modera te consolidative features. Pleura: No effusion. No pneumothorax. Cardiomediastinal contours: Cardiomegaly. Bones: Unremarkable IMPRESSION: 1. Stable appearing Extensive multifocal bilateral pulmonary airspace disease with moderate consolida tive features. 2. Cardiomegaly. 3. Lines and tubes unchanged.
[2025-02-05 05:03] LABS: BUN/Creatinine Ratio 15.3 (10.0-20.0); Magnesium 2.4 mg/dL (1.6-2.6)
[2025-02-05 05:11] LABS: Blood Urea Nitrogen 64 mg/dL (9-23); Glucose 119 mg/dL (74-106)
--- NOTE | 2025-02-05 07:37 | ECG ---
[facility] Test Date: 2025-02-02 Test Time: 14:22:49 Pat Name: TALIA GODDARD Department: Room: 0262 A Gender: F [employer]: mirna : 1960 Requested By: ROBERTO VASQUEZ Order Number: [id number] Reading MD: Franki Sanchez Measurements Intervals [place] Rate: 147 P: 0 HI: 0 QRS: -47 QRSD: 162 T: 36 QT: 313 QTc: 490 Interpretive Statements Atrial fibrillation Right bundle branch block Borderline ST depression, lateral leads Baseline wander in lead(s) II,III,aVF Electronically Signed On 02-06-2025 13:06:11 PST by Franki Sanchez Please click the below link to view image of tracing.
--- NOTE | 2025-02-05 08:36 | DVHPN2 ---
Progress Note - Dictate Date Seen: Feb 05, 2025 Medical Necessity Reason Pt with a Central, PICC or Fol: Yes The following are medically ne: Central Line, [place] Catheter Subjective Undergoing hemodialysis. Tachycardic vital signs Vital Sign Date Time Temp Pulse Resp B/P (MAP) Pulse Ox O2 Delivery O2 Flow Rate FiO2 02/05/25 07:56 99 24 157/67 (97) 100 40 02/05/25 06:19 Mechanical Ventilator+ 02/05/25 04:00 98.2 98.2 Total Intake and Output 02/04/25 02/04/25 02/05/25 15:00 23:00 07:00 Intake Total 100.0 ml 250.0 ml 137.5 ml Output Total 0 ml Balance 100.0 ml 250.0 ml 137.5 ml medications Current Medications Medications Dose Ordered Sig/Seth Route Start Time Stop Time Status Last Admin Dose Admin Acetaminophen 325 mg Q4HP PRN PO 01/10/25 00:30 01/22/25 00:29 325 MG Ondansetron HCl 4 mg Q4HP PRN IV 01/10/25 00:30 01/20/25 16:19 4 MG Atorvastatin Calcium 40 mg HS PO 01/10/25 22:00 02/04/25 22:32 40 MG Levothyroxine Sodium 125 mcg QAM@0600 PO 01/11/25 06:00 02/05/25 05:18 125 MCG Sodium Chloride 10 ml QSHIFT@10,22 IV 01/12/25 22:00 02/04/25 22:27 10 ML Dextrose 50 ml UD PRN IV 01/14/25 14:15 01/24/25 12:10 50 ML Fluconazole 100 mg POSTDI PRN PO 01/15/25 12:45 Cancel Albumin Human 100 ml @ 100 mls/hr WD PRN IV 01/18/25 21:00 02/03/25 11:36 100 MLS/HR Albuterol 2.5 mg Q4HPRN PRN NEB 01/20/25 16:00 02/04/25 05:45 2.5 MG Vancomycin HCl 0 ml @ 0 mls/hr PER PHARMACY IV 01/21/25 12:15 Cancel Fentanyl Citrate 250 ml @ 2.5 mls/hr Q24H IV 01/23/25 13:45 02/04/25 12:30 12.5 MLS/HR Norepinephrine Bitartrate 32 mg/ Sodium Chloride 250 ml @ 0.938 mls/ hr Q24H IV 01/23/25 14:45 02/01/25 11:15 0.938 MLS/HR Enteral Nutritional Formula 1,000 ml 30ML/HR GT 01/23/25 18:00 01/26/25 23:26 1,000 ML Pantoprazole Sodium 40 mg BID IV 01/23/25 22:00 02/04/25 22:28 40 MG Sodium Chloride 1,000 ml @ 200 mls/hr Q5H IV 01/25/25 11:00 Cancel Amiodarone HCl 100 mg Q12HR PO 01/25/25 22:00 02/04/25 22:31 100 MG Midazolam HCl 100 ml @ 1 mls/hr Q24H IV 01/25/25 18:00 01/25/25 21:58 3 MLS/HR Diagnostic Test (Pha) 1 strip IQ4HR 01/28/25 12:00 02/05/25 05:15 1 STRIP Insulin Human Regular IQ4HR SC 01/28/25 12:00 02/04/25 20:14 2 UNITS Hydrocortisone Sodium Succinate 50 mg Q8HR IV 01/28/25 14:00 02/05/25 05:22 50 MG Levalbuterol HCl 1.25 mg Q4HR NEB 02/02/25 14:30 02/05/25 02:02 1.25 MG Amiodarone HCl 250 ml @ 16.66 mls/ hr Q15H1M IV 02/02/25 21:00 02/03/25 01:20 16.66 MLS/HR Labetalol HCl 10 mg ONCE PRN IV 02/02/25 15:15 Ipratropium [place] 0.5 mg Q4HR NEB 02/02/25 18:00 02/05/25 02:02 0.5 MG Heparin Sodium/ Dextrose 250 ml @ 6 mls/hr Q24H IV 02/03/25 14:00 Hold Enoxaparin Sodium 70 mg DAILY SC 02/04/25 15:30 02/04/25 16:04 70 MG Ertapenem 0.5 gm/ Sodium Chloride 50 ml @ 100 mls/hr DAILY@POSTDI IV 02/04/25 15:30 objective intubated and sedated Pulmonary: Diminished breath sounds at bases Cardiovascular S1-S2, no S3 or S4 Abdomen: Bowel sounds positive, soft no rebound tenderness Neurological: intubated and sedated Extremities: Right foot gangrenous laboratory and microbiology Laboratory Tests 02/05/25 04:38 Test 02/05/25 04:38 Range/Units Serum Glucose 119 H 74-106 mg/dL Problem List ESRD on HD Acute hypoxic respiratory failure Shock secondary to sepsis Right foot osteomyelitis Pneumonia DM hypothyroidism Leukocytosis Anemia Hyperphosphatemia Secondary hyperparathyroidism Thrombocytopenia Assessment/Plan Patient was being dialyzed today which had to be stopped because of tachycardia and hypotension. vent management as per pulmonary continue IV abx . Prognosis guarded Dietary Evaluation Review Comments: Nutrition Recommendation 1) CCHO 60gm + renal standard diet 2) Nephro-santosh 1 tab daily 3) Lexx 1 pk daily 4) Monitor PO intake, lab values, weight trend, and I/O Expected Outcomes/Goals: To meet >75% estimated needs Wound to improve Fu 3-5 days Plan discussed with: Other CC Plasma Assessment Blood Product Administration S: [id number] RENETTA LORENZ MD Feb 05, 2025 08:36
[2025-02-05] MEDS: SODIUM CHL 0.9% 1000 ML BAG XX ONE (09:00)
[2025-02-05] MEDS: NOREPINEPHRINE BITARTRATE 32 MG in SODIUM CHL 0.9% 218 ML IV SCH (10:17)
[2025-02-05] MEDS: AMIODARONE BOLUS KIT 100 ML IV ONE ×3 (11:10→21:05)
--- NOTE | 2025-02-05 11:28 | DVHPN2 ---
Subjective Patient chemically sedated Reviewed: Care Plan, H&P Changes from previous H/P or p: No Changes General: Per HPI Objective Vitals Vital Signs Date Time Temp Pulse Resp B/P (MAP) Pulse Ox O2 Delivery O2 Flow Rate FiO2 02/05/25 10:30 163 24 128/77 (94) 92 100 02/05/25 06:19 Mechanical Ventilator+ 02/05/25 04:00 98.2 98.2 Intake/Output Intake and Output 02/05/25 07:00 Intake Total 487.5 ml Output Total 0 ml Balance 487.5 ml Intake Oral 50 ml IV Total 287.5 ml Tube Feeding 150 ml Stool Total 0 ml General Appearance: mild distress, Other (Intubated) HEENT: Atraumatic, PERRLA Lungs: Clear to auscultation, Other (On vent, transmitted breath sounds bilaterally.) Cardiovascular: Normal S1, Normal S2 Abdomen: Normal bowel sounds, Soft, No tenderness, No hepatospenomegaly Musculoskeletal: Other (Unable to assess) Neuro: Other (Unable to assess) Skin: Dry, Intact, Other (Right foot necrosis) Psych/Mental Status: Other (Unable to assess) Medications Current Medications Medications Dose Ordered Sig/Seth Route Start Time Stop Time Status Last Admin Dose Admin Acetaminophen 325 mg Q4HP PRN PO 01/10/25 00:30 01/22/25 00:29 325 MG Ondansetron HCl 4 mg Q4HP PRN IV 01/10/25 00:30 01/20/25 16:19 4 MG Atorvastatin Calcium 40 mg HS PO 01/10/25 22:00 02/04/25 22:32 40 MG Levothyroxine Sodium 125 mcg QAM@0600 PO 01/11/25 06:00 02/05/25 05:18 125 MCG Sodium Chloride 10 ml QSHIFT@10,22 IV 01/12/25 22:00 02/05/25 10:00 10 ML Dextrose 50 ml UD PRN IV 01/14/25 14:15 01/24/25 12:10 50 ML Fluconazole 100 mg POSTDI PRN PO 01/15/25 12:45 Cancel Albumin Human 100 ml @ 100 mls/hr WD PRN IV 01/18/25 21:00 02/03/25 11:36 100 MLS/HR Albuterol 2.5 mg Q4HPRN PRN NEB 01/20/25 16:00 02/04/25 05:45 2.5 MG Vancomycin HCl 0 ml @ 0 mls/hr PER PHARMACY IV 01/21/25 12:15 Cancel Fentanyl Citrate 250 ml @ 2.5 mls/hr Q24H IV 01/23/25 13:45 02/04/25 12:30 12.5 MLS/HR Enteral Nutritional Formula 1,000 ml 30ML/HR GT 01/23/25 18:00 01/26/25 23:26 1,000 ML Pantoprazole Sodium 40 mg BID IV 01/23/25 22:00 02/05/25 11:09 40 MG Sodium Chloride 1,000 ml @ 200 mls/hr Q5H IV 01/25/25 11:00 Cancel Amiodarone HCl 100 mg Q12HR PO 01/25/25 22:00 02/04/25 22:31 100 MG Midazolam HCl 100 ml @ 1 mls/hr Q24H IV 01/25/25 18:00 01/25/25 21:58 3 MLS/HR Diagnostic Test (Pha) 1 strip IQ4HR 01/28/25 12:00 02/05/25 10:28 1 STRIP Insulin Human Regular IQ4HR SC 01/28/25 12:00 02/05/25 10:30 2 UNITS Hydrocortisone Sodium Succinate 50 mg Q8HR IV 01/28/25 14:00 02/05/25 05:22 50 MG Levalbuterol HCl 1.25 mg Q4HR NEB 02/02/25 14:30 02/05/25 06:25 1.25 MG Labetalol HCl 10 mg ONCE PRN IV 02/02/25 15:15 Ipratropium [place] 0.5 mg Q4HR NEB 02/02/25 18:00 02/05/25 06:25 0.5 MG Heparin Sodium/ Dextrose 250 ml @ 6 mls/hr Q24H IV 02/03/25 14:00 Hold Enoxaparin Sodium 70 mg DAILY SC 02/04/25 15:30 02/04/25 16:04 70 MG Ertapenem 0.5 gm/ Sodium Chloride 50 ml @ 100 mls/hr DAILY@POSTDI IV 02/04/25 15:30 Norepinephrine Bitartrate 32 mg/ Sodium Chloride 250 ml @ 0.938 mls/ hr Q24H IV 02/05/25 10:00 02/05/25 10:17 1.875 MLS/HR Amiodarone HCl 250 ml @ 16.66 mls/ hr Q15H1M IV 02/05/25 16:15 Laboratory Results Laboratory Tests 02/05/25 04:38 Chemistry Test 02/05/25 04:38 Calcium Level 9.0 mg/dL (8.7-10.4) Magnesium Level 2.4 mg/dL (1.6-2.6) Urinalysis Test 01/10/25 09:18 Urine Color Yellow (Yellow) Urine Clarity Turbid (Clear) H Urine pH 6.5 (5.0-9.0) Urine Specific [place] 1.019 (1.001-1.035) Urine Protein 2+ (Negative) H Urine Ketones Negative (Negative) Urine Blood Negative /uL (Negative) Urine Nitrite Negative (Negative) Urine Bilirubin Negative (Negative) Urine Urobilinogen Normal mg/dL (Negative) Urine Leukocyte Esterase Trace /uL (Negative) Urine RBC 7 /hpf (0 - 4) Urine Microscopic WBC 4 /HPF (0-5) Urine Squamous Epithelial Cells Few /hpf (<5) Urine Bacteria None seen /hpf (None Seen) Urine Yeast (Budding) Moderate /hpf (None Seen) Urine Glucose 1+ mg/dL (Normal) H Microbiology Microbiology Date/Time Source Procedure Growth Status 02/01/25 05:00 Catheter Tip Aerobic Culture - Preliminary Resulted 01/24/25 10:06 Bronchial Washings Gram Stain - Final Complete 01/24/25 10:06 Bronchial Washings Respiratory Culture - Final Complete 01/23/25 19:15 Blood Blood Culture - Final NO GROWTH AFTER 5 DAYS OF INCUBATION. Complete 01/10/25 09:18 Voided Urine Urine Culture - Final Presumptive Sully albicans Yeast, not Sully albicans Complete Labs and/or images reviewed: Labs reviewed by me, Image(s) reviewed by me Assessment/Plan Assessment/Plan Impression: -septic shock -right foot osteomyelitis -peripheral arterial disease -acute hypoxic respiratory failure -acute on chronic systolic and diastolic heart failure -end-stage renal disease with hemodialysis -diabetes mellitus Plan: Events: Patient received hemodialysis today. Became hypotensive as well as going in AFib with RVR. Patient placed back on norepinephrine drip. Amiodarone drip started. -stat BMP, Mag, PT/PTT. ABG reviewed. Patient has worsening hypoxia, now on 100% FiO2. -continue current ventilator settings. Wean FiO2 to keep saturation greater than 92% -pulmonology consultation: Recommendations reviewed. Patient is status post bronchoscopy -nephrology consultation: Recommendations reviewed. -regular insulin sliding scale -repeat labs, ABG, and chest x-ray in a.m. Critical care time spent with patient discussing and formulating plan of care: 40 minutes. This does not include time spent performing procedures. This medical document was created using an electronic medical record system with [employer] system. Although this document has been carefully reviewed, there may still be some phonetic and typographical errors. These areas are purely typographical due to imperfections of the software programs, and do not reflect any compromise in the patient's medical care. Plan discussed with: Patient, Other (RN) My Orders Orders - TERRY REDD NP Procedure Category Date Status Time Amiodarone PHA 02/05/25 In Process 450mg/250ml Ae 10:15 Amiodarone PHA 02/05/25 In Process 450mg/250ml Ae 16:15 Electrocardigram EKG 02/05/25 Logged 09:57 Date of Service: Feb 05, 2025 Billing Provider: TERRY REDD NP Common Visit Codes: [id number] CARE 30-74 MIN TERRY REDD NP Feb 05, 2025 11:28
[2025-02-05 11:58] LABS: Base Excess 0.3 mmol/L (-2.0-3.0)
[2025-02-05 14:03] LABS: Anion Gap 13 (5-15); Carbon Dioxide 26 mmol/L (20-31)
[2025-02-05 14:09] LABS: BUN/Creatinine Ratio 16.0 (10.0-20.0); Magnesium 1.9 mg/dL (1.6-2.6)
[2025-02-05 14:10] LABS: Blood Urea Nitrogen 52 mg/dL (9-23); Calcium 7.7 mg/dL (8.7-10.4); Chloride 96 mmol/L (98-107); Glucose 373 mg/dL (74-106); Potassium 3.3 mmol/L (3.5-5.1); Sodium 135 mmol/L (136-145)
[2025-02-05 14:19] LABS: INR 1.59 (0.9-1.15); Partial Thromboplastin Time 39.1 SEC (24.5-34.5); Prothrombin Time 16.1 sec (9.3-11.8)
--- NOTE | 2025-02-05 18:25 | DVHPN2 ---
Progress Note Date Seen: Feb 05, 2025 Resident Creating Document: MERLY THAKUR RESIDENT Medical Necessity Reason Pt with a Central, PICC or Fol: Yes The following are medically ne: Central Line, [place] Catheter Subjective Review of Systems Seen and examined with the bedside Sedated and on mechanical ventilation Patient is critically ill , oxygen requirements decreased overall and decreasing vasopressor requirements H&H mostly stable Minimal gastric residuals Greenish brown stool in the rectal tube Objective vital signs Vital Sign Date Time Temp Pulse Resp B/P (MAP) Pulse Ox O2 Delivery O2 Flow Rate FiO2 02/05/25 18:08 97 Mechanical Ventilator 02/05/25 18:06 60 60 02/05/25 17:45 99 24 73/35 (48) 02/05/25 16:00 98.4 98.4 Total Intake and Output 02/04/25 02/04/25 02/05/25 15:00 23:00 07:00 Intake Total 100.0 ml 250.0 ml 150.0 ml Output Total 0 ml Balance 100.0 ml 250.0 ml 150.0 ml medications Current Medications Medications Dose Ordered Sig/Seth Route Start Time Stop Time Status Last Admin Dose Admin Acetaminophen 325 mg Q4HP PRN PO 01/10/25 00:30 01/22/25 00:29 325 MG Ondansetron HCl 4 mg Q4HP PRN IV 01/10/25 00:30 01/20/25 16:19 4 MG Atorvastatin Calcium 40 mg HS PO 01/10/25 22:00 02/04/25 22:32 40 MG Levothyroxine Sodium 125 mcg QAM@0600 PO 01/11/25 06:00 02/05/25 05:18 125 MCG Sodium Chloride 10 ml QSHIFT@ IV 01/12/25 22:00 02/05/25 10:00 10 ML Dextrose 50 ml UD PRN IV 01/14/25 14:15 01/24/25 12:10 50 ML Fluconazole 100 mg POSTDI PRN PO 01/15/25 12:45 Cancel Albumin Human 100 ml @ 100 mls/hr WD PRN IV 01/18/25 21:00 02/03/25 11:36 100 MLS/HR Albuterol 2.5 mg Q4HPRN PRN NEB 01/20/25 16:00 02/04/25 05:45 2.5 MG Vancomycin HCl 0 ml @ 0 mls/hr PER PHARMACY IV 01/21/25 12:15 Cancel Fentanyl Citrate 250 ml @ 2.5 mls/hr Q24H IV 01/23/25 13:45 02/05/25 16:00 30 MLS/HR Enteral Nutritional Formula 1,000 ml 30ML/HR GT 01/23/25 18:00 01/26/25 23:26 1,000 ML Pantoprazole Sodium 40 mg BID IV 01/23/25 22:00 02/05/25 11:09 40 MG Sodium Chloride 1,000 ml @ 200 mls/hr Q5H IV 01/25/25 11:00 Cancel Amiodarone HCl 100 mg Q12HR PO 01/25/25 22:00 02/04/25 22:31 100 MG Midazolam HCl 100 ml @ 1 mls/hr Q24H IV 01/25/25 18:00 02/05/25 10:17 1 MLS/HR Diagnostic Test (Pha) 1 strip IQ4HR 01/28/25 12:00 02/05/25 16:10 1 STRIP Insulin Human Regular IQ4HR SC 01/28/25 12:00 02/05/25 16:08 3 UNITS Hydrocortisone Sodium Succinate 50 mg Q8HR IV 01/28/25 14:00 02/05/25 14:21 50 MG Levalbuterol HCl 1.25 mg Q4HR NEB 02/02/25 14:30 02/05/25 18:05 1.25 MG Labetalol HCl 10 mg ONCE PRN IV 02/02/25 15:15 Ipratropium [place] 0.5 mg Q4HR NEB 02/02/25 18:00 02/05/25 18:05 0.5 MG Heparin Sodium/ Dextrose 250 ml @ 6 mls/hr Q24H IV 02/03/25 14:00 Hold Enoxaparin Sodium 70 mg DAILY SC 02/04/25 15:30 02/04/25 16:04 70 MG Ertapenem 0.5 gm/ Sodium Chloride 50 ml @ 100 mls/hr DAILY@POSTDI IV 02/04/25 15:30 Norepinephrine Bitartrate 32 mg/ Sodium Chloride 250 ml @ 0.938 mls/ hr Q24H IV 02/05/25 10:00 11/3/25 10:17 1.875 MLS/HR Amiodarone HCl 250 ml @ 16.66 mls/ hr Q15H1M IV 02/05/25 16:15 Magnesium Sulfate/ Dextrose 100 ml @ 100 mls/hr Q1HR IV 02/05/25 19:00 02/05/25 20:59 UNV Examination Gen - no pallor, no scleral icterus Skin - Patients skin is warm and dry. HEENT - normocephalic, atraumatic, dry mucous membranes. Neck - supple, no lymphadenopathy Pulmonary - decreased breath sounds on the left side cardiovascular - regular S1,S2 heard GI - soft abdomen. Bowel sounds hypoactive. Neurological - sedated and on mechanical ventilation laboratory and microbiology Laboratory Tests 02/05/25 13:26 02/05/25 04:38 Test 02/05/25 13:26 Range/Units Serum Glucose 373 H 74-106 mg/dL Microbiology Date/Time Source Procedure Growth Status 02/01/25 05:00 Catheter Tip Aerobic Culture - Preliminary Resulted 01/24/25 10:06 Bronchial Washings Gram Stain - Final Complete 01/24/25 10:06 Bronchial Washings Respiratory Culture - Final Complete 01/23/25 19:15 Blood Blood Culture - Final NO GROWTH AFTER 5 DAYS OF INCUBATION. Complete 01/10/25 09:18 Voided Urine Urine Culture - Final Presumptive Sully albicans Yeast, not Sully albicans Complete Problem List/Assessment/Plan Problem List/Assessment/Plan Assessment Possible GI bleed Sepsis likely from osteomyelitis Acute on chronic systolic heart failure Thrombocytopenia Coagulopathy PAT on CKD likely due to VMN Left upper extremity DVT Cardiopulmonary arrest s/p ROSC Plan - Protonix 40 mg IV b.i.d. - once the patient is hemodynamically stable, she may benefit from EGD - watch H&H - tolerating feeding grew NG tube, check residuals qshift, continue - avoid anticoagulation Poor prognosis Plan discussed with Dr. Soto Plan discussed with: Other (ALBERTINA Smith) Dietary Evaluation Review Comments: Nutrition Recommendation 1) CCHO 60gm + renal standard diet 2) Nephro-santsoh 1 tab daily 3) Lexx 1 pk daily 4) Monitor PO intake, lab values, weight trend, and I/O Expected Outcomes/Goals: To meet >75% estimated needs Wound to improve Fu 3-5 days CC Plasma Assessment Blood Product Administration S: [id number] MERLY THAKUR RESIDENT Feb 05, 2025 18:25
[2025-02-05] MEDS: SODIUM CHLORIDE 0.9% 250 ML IV ONE (18:39)
[2025-02-05] MEDS: MAGNESIUM SULFATE 1GM/100ML 100 ML IV SCH (20:13)
[2025-02-05] MEDS: CALCIUM GLUC 1,000mg/50ml-NS 50 ML IV ONE ×2 (21:07→21:50)
[2025-02-05] MEDS: POTASSIUM CHL 20MEQ/100ML 100 ML IV ONE ×2 (21:08→21:50)
[2025-02-05] MEDS: EPOETIN ALFA-EPBX 10,000 UNIT/1ML VIAL SC ONE (21:19)
--- NOTE | 2025-02-05 22:05 | DVHPN2 ---
[facility] DOS: 02/05/2025 Patient seen and examined at bedside. Intubated on mechanical ventilator. Overnight events reviewed. Reviewed: Care Plan, H&P Changes from previous H/P or p: No Changes General: Per HPI Objective Vitals Vital Signs Date Time Temp Pulse Resp B/P (MAP) Pulse Ox O2 Delivery O2 Flow Rate FiO2 02/05/25 20:08 136 24 124/67 (86) 100 60 02/05/25 19:30 97.8 97.8 02/05/25 18:08 Mechanical Ventilator Intake/Output Intake and Output 02/05/25 07:00 Intake Total 500.0 ml Output Total 0 ml Balance 500.0 ml Intake Oral 50 ml IV Total 300.0 ml Tube Feeding 150 ml Stool Total 0 ml Exam Gen.: Patient lying in bed in medical ICU. Intubated on mechanical ventilator. Head: Normocephalic, atraumatic. Eyes: PERRLA. Ears: Normal external anatomy. Throat: Endotracheal tube and orogastric tube in place. Neck: Supple, trachea midline. Chest: Transmitted breath sounds bilaterally. Decreased air entry bilaterally. No wheezing. Bibasilar crackles. Cardiovascular: Positive S1, positive S2. Regular rate and rhythm. Abdomen: Positive bowel sounds in all 4 quadrants. Soft, nontender, nondistended. : Lofton in place. Normal external genitalia. Rectal: Deferred. Skin: Warm, dry. Right foot osteomyelitis. Extremities: 2+ radial pulses bilaterally. No lower extremity edema. Neuro: Off sedation General Appearance: mild distress, Other (Intubated) HEENT: Atraumatic, PERRLA Lungs: Clear to auscultation, Other (On vent, transmitted breath sounds bilaterally.) Cardiovascular: Normal S1, Normal S2 Abdomen: Normal bowel sounds, Soft, No tenderness, No hepatospenomegaly Musculoskeletal: Other (Unable to assess) Neuro: Other (Unable to assess) Skin: Dry, Intact, Other (Right foot necrosis) Psych/Mental Status: Other (Unable to assess) Medications Current Medications Medications Dose Ordered Sig/Seth Route Start Time Stop Time Status Last Admin Dose Admin Acetaminophen 325 mg Q4HP PRN PO 01/10/25 00:30 01/22/25 00:29 325 MG Ondansetron HCl 4 mg Q4HP PRN IV 01/10/25 00:30 01/20/25 16:19 4 MG Atorvastatin Calcium 40 mg HS PO 01/10/25 22:00 02/05/25 21:25 40 MG Levothyroxine Sodium 125 mcg QAM@0600 PO 01/11/25 06:00 02/05/25 05:18 125 MCG Sodium Chloride 10 ml QSHIFT@10,22 IV 01/12/25 22:00 02/05/25 21:27 10 ML Dextrose 50 ml UD PRN IV 01/14/25 14:15 01/24/25 12:10 50 ML Fluconazole 100 mg POSTDI PRN PO 01/15/25 12:45 Cancel Albumin Human 100 ml @ 100 mls/hr WD PRN IV 01/18/25 21:00 02/03/25 11:36 100 MLS/HR Albuterol 2.5 mg Q4HPRN PRN NEB 01/20/25 16:00 02/04/25 05:45 2.5 MG Vancomycin HCl 0 ml @ 0 mls/hr PER PHARMACY IV 01/21/25 12:15 Cancel Fentanyl Citrate 250 ml @ 2.5 mls/hr Q24H IV 01/23/25 13:45 02/05/25 16:00 30 MLS/HR Enteral Nutritional Formula 1,000 ml 30ML/HR GT 01/23/25 18:00 01/26/25 23:26 1,000 ML Pantoprazole Sodium 40 mg BID IV 01/23/25 22:00 02/05/25 21:26 40 MG Sodium Chloride 1,000 ml @ 200 mls/hr Q5H IV 01/25/25 11:00 Cancel Amiodarone HCl 100 mg Q12HR PO 01/25/25 22:00 02/04/25 22:31 100 MG Midazolam HCl 100 ml @ 1 mls/hr Q24H IV 01/25/25 18:00 02/05/25 10:17 1 MLS/HR Diagnostic Test (Pha) 1 strip IQ4HR 01/28/25 12:00 02/05/25 20:44 1 STRIP Insulin Human Regular IQ4HR SC 01/28/25 12:00 02/05/25 20:44 6 UNITS Hydrocortisone Sodium Succinate 50 mg Q8HR IV 01/28/25 14:00 02/05/25 21:27 50 MG Levalbuterol HCl 1.25 mg Q4HR NEB 02/02/25 14:30 02/05/25 18:05 1.25 MG Labetalol HCl 10 mg ONCE PRN IV 02/02/25 15:15 Ipratropium [place] 0.5 mg Q4HR NEB 02/02/25 18:00 02/05/25 18:05 0.5 MG Heparin Sodium/ Dextrose 250 ml @ 6 mls/hr Q24H IV 02/03/25 14:00 Hold Enoxaparin Sodium 70 mg DAILY SC 02/04/25 15:30 02/05/25 18:39 70 MG Ertapenem 0.5 gm/ Sodium Chloride 50 ml @ 100 mls/hr DAILY@POSTDI IV 02/04/25 15:30 Norepinephrine Bitartrate 32 mg/ Sodium Chloride 250 ml @ 0.938 mls/ hr Q24H IV 02/05/25 10:00 02/05/25 10:17 1.875 MLS/HR Amiodarone HCl 250 ml @ 16.66 mls/ hr Q15H1M IV 02/05/25 16:15 02/05/25 18:41 16.66 MLS/HR Laboratory Results Laboratory Tests 02/05/25 04:38 02/05/25 13:26 Chemistry Test 02/05/25 04:38 02/05/25 13:26 Calcium Level 9.0 mg/dL (8.7-10.4) 7.7 mg/dL (8.7-10.4) L Magnesium Level 2.4 mg/dL (1.6-2.6) 1.9 mg/dL (1.6-2.6) Coagulation Test 02/05/25 13:26 Prothrombin Time 16.1 sec (9.3-11.8) H Prothrombin Time INR 1.59 (0.9-1.15) H Activated Partial Thromboplast Time 39.1 SEC (24.5-34.5) H Urinalysis Test 01/10/25 09:18 Urine Color Yellow (Yellow) Urine Clarity Turbid (Clear) H Urine pH 6.5 (5.0-9.0) Urine Specific [place] 1.019 (1.001-1.035) Urine Protein 2+ (Negative) H Urine Ketones Negative (Negative) Urine Blood Negative /uL (Negative) Urine Nitrite Negative (Negative) Urine Bilirubin Negative (Negative) Urine Urobilinogen Normal mg/dL (Negative) Urine Leukocyte Esterase Trace /uL (Negative) Urine RBC 7 /hpf (0 - 4) Urine Microscopic WBC 4 /HPF (0-5) Urine Squamous Epithelial Cells Few /hpf (<5) Urine Bacteria None seen /hpf (None Seen) Urine Yeast (Budding) Moderate /hpf (None Seen) Urine Glucose 1+ mg/dL (Normal) H Blood Gas Results Test 02/05/25 10:40 Arterial Blood pH 7.350 (7.350-7.450) FiO2 % 100.0 Microbiology Microbiology Date/Time Source Procedure Growth Status 02/01/25 05:00 Catheter Tip Aerobic Culture - Preliminary Resulted 01/24/25 10:06 Bronchial Washings Gram Stain - Final Complete 01/24/25 10:06 Bronchial Washings Respiratory Culture - Final Complete 01/23/25 19:15 Blood Blood Culture - Final NO GROWTH AFTER 5 DAYS OF INCUBATION. Complete 01/10/25 09:18 Voided Urine Urine Culture - Final Presumptive Sully albicans Yeast, not Sully albicans Complete Assessment/Plan Assessment/Plan Impression: Acute hypoxic respiratory failure On mechanical ventilator Acute CHF exacerbation End-stage renal disease, on hemodialysis Osteomyelitis DVT, left upper extremity Overweight Events: Remains on vent support On AC mode; RR 24, VT 400, PEEP 10, FiO2 60% Patient noted to desaturate with turns. Remains off sedation CXR shows devices in place. Stable appearing extensive multifocal bilateral pulmonary airspace disease with moderate consolidative features. Cardiomegaly. On hemodialysis today. Blood pressure dropped during hemodialysis. Patient developed atrial fibrillation with rapid ventricular response Started on amiodarone Patient hypotensive Started on Levophed for hemodynamic support Titrate to keep MAP above 65 mmHg/SBP above 90 mmHg. Follow up Cardiology recs. Of note, patient had a cardiopulmonary arrest on 02/02/25 for 1 minute, ROSC achieved. Heparin drip due to left upper extremity DVT - currently on hold. Lovenox on hold. Monitor hemoglobin Transfuse if less than 7.0 g/dL. Continue bronchodilators. Continue antibiotics. Continue IV stress dose steroids, q.8 hours Hemodialysis per Nephrology Follow up Nephrology recommendations Monitor renal function Monitor electrolytes. Supplement as necessary. Supplement magnesium 2 g IV. Accu-Cheks, ISS. Tube feeds for nutritional support DTI sacrum - wound care. Note, patient with overall poor prognosis High likelihood of demise. Left upper extremity venous duplex revealed DVT in left axillary and brachial veins. Labs and imaging reviewed. Rest of plan as noted below. Plan: s/p intubation on mechanical ventilator. On AC mode; RR 24, VT 400, PEEP 10, FiO2 60% Taper PEEP and FiO2 as tolerated S/p bronchoscopy on 11/24/24 - Results from bronchial washings show no growth. Titrate FIO2 to keep O2 saturation above 90%. VAP bundle. Daily ABG and CXR while intubated Continue bronchodilators. Continue antibiotics. Follow up cultures. IV steroids Pressors for hemodynamic support Titrate to keep MAP above 65 mmHg/SBP above 90 mmHg. Accu-Cheks, ISS Wound care. Monitor H&H. Hemodialysis per Nephrology Monitor renal function Monitor electrolytes. Supplement as necessary. Monitor ins and outs. Maintain euvolemia. GI prophylaxis. DVT prophylaxis. Prognosis: Poor given patient's multiple co-morbidities. Condition: Critical Rest of plan per hospitalist and other consultants. A total of 35 minutes of critical care time was spent reviewing the patient record, examining the patient, making a diagnostic and therapeutic plan, discussing this plan with the medical personnel, following up on diagnostic studies and following the patient for clinical stability excluding any and all procedures. At least 50% of this time was spent in direct, [id number] contact. Thank you, Dr. Bowie, for allowing me to participate in this patient's care. Further recommendations will depend on the patient's clinical course. Please do not hesitate to contact me if you have any questions or concerns. This medical document was created using an electronic medical record system with [employer] dictation system. Although these documentations are being carefully reviewed, there may still be some phonetic and typographical changes. The errors are purely typographical, due to imperfection on the software program, and do not reflect any compromise in the patient's medical care. Plan discussed with: Other (ALBERTINA Smith) My Orders Orders - ALCON GUTHRIE MD Procedure Category Date Status Time * Cardiology Consult CONS 02/05/25 Transmitted 18:04 Communication Order ORDERS 02/05/25 Transmitted 18:09 Communication Order ORDERS 02/05/25 Transmitted 18:24 Complete Blood Count LAB 02/05/25 Logged 22:30 Visit Coding Pulmonary Billing Provider: ALCON GUTHRIE MD Date of Service if different f: Feb 05, 2025 Common Visit Codes: [id number] INP/OBS CARE(HIGH), [id number] CARE 30-74 MIN ALCON GUTHRIE MD Feb 05, 2025 22:04
[2025-02-05 23:14] LABS: Hematocrit 27.0 % (36.0-46.0); Hemoglobin 8.8 g/dL (12.2-16.2); Mean Corpuscular Hemoglobin 30.4 pg (28.0-32.0); Mean Corpuscular Volume 93.6 fL (80.0-100.0); Nucleated Red Blood Cells % 0.1 %
[2025-02-06] VITALS (107 sets, daily range): BP systolic 83–197; BP diastolic 29–125; PULSE 113–134; RESP 13–32; TEMP 96.8–98.2; O2SAT 94–100
[2025-02-06 04:47] LABS: Alanine Aminotransferase 30 U/L (7-40); Anion Gap 15 (5-15); BUN/Creatinine Ratio 16.8 (10.0-20.0); Calcium 9.0 mg/dL (8.7-10.4); Carbon Dioxide 24 mmol/L (20-31); Chloride 100 mmol/L (98-107); Potassium 4.2 mmol/L (3.5-5.1); Sodium 139 mmol/L (136-145)
[2025-02-06 05:19] LABS: Albumin 3.1 g/dL (3.2-4.8); Alkaline Phosphatase 138 U/L (46-116); Bilirubin, Total 1.2 mg/dL (0.2-1.0); Blood Urea Nitrogen 64 mg/dL (9-23); Glucose 203 mg/dL (74-106); Total Protein 5.6 g/dL (5.7-8.2)
[2025-02-06 07:32] LABS: Base Excess -5.7 mmol/L (-2.0-3.0)
--- NOTE | 2025-02-06 08:05 | ECG ---
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
--- NOTE | 2025-02-06 08:10 | ECG ---
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
--- NOTE | 2025-02-06 08:49 | DVHPN2 ---
Subjective Patient chemically sedated Reviewed: Care Plan, H&P Changes from previous H/P or p: No Changes General: Per HPI Objective Vitals Vital Signs Date Time Temp Pulse Resp B/P (MAP) Pulse Ox O2 Delivery O2 Flow Rate FiO2 02/06/25 06:36 125 24 107/68 (81) 100 50 02/06/25 06:13 Mechanical Ventilator+ 02/06/25 04:00 98.2 98.2 Intake/Output Intake and Output 02/06/25 07:00 Intake Total 1006.684 ml Output Total 0 ml Balance 1006.684 ml Intake Oral 60 ml IV Total 916.684 ml Tube Feeding 30 ml Output Urine Total 0 ml General Appearance: moderate distress, Other (Intubated) HEENT: Atraumatic, PERRLA Lungs: Clear to auscultation, Other (On vent, transmitted breath sounds bilaterally.) Cardiovascular: Normal S1, Normal S2, Other (Atrial flutter with two-to-one conduction) Abdomen: Normal bowel sounds, Soft, No tenderness, No hepatospenomegaly Musculoskeletal: Other (Unable to assess) Neuro: Other (Unable to assess) Skin: Dry, Intact, Wounds (See nurse notes and pictures), Other (Right foot necrosis) Psych/Mental Status: Other (Unable to assess) Medications Current Medications Medications Dose Ordered Sig/Seth Route Start Time Stop Time Status Last Admin Dose Admin Acetaminophen 325 mg Q4HP PRN PO 01/10/25 00:30 01/22/25 00:29 325 MG Ondansetron HCl 4 mg Q4HP PRN IV 01/10/25 00:30 01/20/25 16:19 4 MG Atorvastatin Calcium 40 mg HS PO 01/10/25 22:00 02/05/25 21:25 40 MG Levothyroxine Sodium 125 mcg QAM@0600 PO 01/11/25 06:00 02/06/25 05:51 125 MCG Sodium Chloride 10 ml QSHIFT@10,22 IV 01/12/25 22:00 02/05/25 21:27 10 ML Dextrose 50 ml UD PRN IV 01/14/25 14:15 01/24/25 12:10 50 ML Fluconazole 100 mg POSTDI PRN PO 01/15/25 12:45 Cancel Albumin Human 100 ml @ 100 mls/hr WD PRN IV 01/18/25 21:00 02/03/25 11:36 100 MLS/HR Albuterol 2.5 mg Q4HPRN PRN NEB 01/20/25 16:00 02/04/25 05:45 2.5 MG Vancomycin HCl 0 ml @ 0 mls/hr PER PHARMACY IV 01/21/25 12:15 Cancel Fentanyl Citrate 250 ml @ 2.5 mls/hr Q24H IV 01/23/25 13:45 02/06/25 01:38 30 MLS/HR Enteral Nutritional Formula 1,000 ml 30ML/HR GT 01/23/25 18:00 01/26/25 23:26 1,000 ML Pantoprazole Sodium 40 mg BID IV 01/23/25 22:00 02/05/25 21:26 40 MG Sodium Chloride 1,000 ml @ 200 mls/hr Q5H IV 01/25/25 11:00 Cancel Amiodarone HCl 100 mg Q12HR PO 01/25/25 22:00 02/04/25 22:31 100 MG Midazolam HCl 100 ml @ 1 mls/hr Q24H IV 01/25/25 18:00 02/05/25 10:17 1 MLS/HR Diagnostic Test (Pha) 1 strip IQ4HR 01/28/25 12:00 02/06/25 05:51 1 STRIP Insulin Human Regular IQ4HR SC 01/28/25 12:00 02/06/25 05:53 3 UNITS Levalbuterol HCl 1.25 mg Q4HR NEB 02/02/25 14:30 02/06/25 06:36 1.25 MG Labetalol HCl 10 mg ONCE PRN IV 02/02/25 15:15 Ipratropium [place] 0.5 mg Q4HR NEB 02/02/25 18:00 02/06/25 06:36 0.5 MG Heparin Sodium/ Dextrose 250 ml @ 6 mls/hr Q24H IV 02/03/25 14:00 Hold Enoxaparin Sodium 70 mg DAILY SC 02/04/25 15:30 02/05/25 18:39 70 MG Ertapenem 0.5 gm/ Sodium Chloride 50 ml @ 100 mls/hr DAILY@POSTDI IV 02/04/25 15:30 Norepinephrine Bitartrate 32 mg/ Sodium Chloride 250 ml @ 0.938 mls/ hr Q24H IV 02/05/25 10:00 02/05/25 10:17 1.875 MLS/HR Amiodarone HCl 250 ml @ 16.66 mls/ hr Q15H1M IV 02/05/25 16:15 02/06/25 01:54 16.66 MLS/HR Hydrocortisone Sodium Succinate 50 mg BID IV 02/06/25 22:00 UNV Laboratory Results Laboratory Tests 02/05/25 22:34 02/06/25 01:40 Chemistry Test 02/05/25 13:26 02/06/25 01:40 Calcium Level 7.7 mg/dL (8.7-10.4) L 9.0 mg/dL (8.7-10.4) Magnesium Level 1.9 mg/dL (1.6-2.6) Albumin 3.1 g/dL (3.2-4.8) L Total Protein 5.6 g/dL (5.7-8.2) L Coagulation Test 02/05/25 13:26 Prothrombin Time 16.1 sec (9.3-11.8) H Prothrombin Time INR 1.59 (0.9-1.15) H Activated Partial Thromboplast Time 39.1 SEC (24.5-34.5) H LFT Test 02/06/25 01:40 Alanine Aminotransferase (ALT) 30 U/L (7-40) Alkaline Phosphatase 138 U/L (46-116) H Aspartate Amino Transferase (AST) 31 U/L (13-40) Total Bilirubin 1.2 mg/dL (0.2-1.0) H Urinalysis Test 01/10/25 09:18 Urine Color Yellow (Yellow) Urine Clarity Turbid (Clear) H Urine pH 6.5 (5.0-9.0) Urine Specific [place] 1.019 (1.001-1.035) Urine Protein 2+ (Negative) H Urine Ketones Negative (Negative) Urine Blood Negative /uL (Negative) Urine Nitrite Negative (Negative) Urine Bilirubin Negative (Negative) Urine Urobilinogen Normal mg/dL (Negative) Urine Leukocyte Esterase Trace /uL (Negative) Urine RBC 7 /hpf (0 - 4) Urine Microscopic WBC 4 /HPF (0-5) Urine Squamous Epithelial Cells Few /hpf (<5) Urine Bacteria None seen /hpf (None Seen) Urine Yeast (Budding) Moderate /hpf (None Seen) Urine Glucose 1+ mg/dL (Normal) H Blood Gas Results Test 02/05/25 10:40 02/06/25 07:25 Arterial Blood pH 7.350 (7.350-7.450) 7.356 (7.350-7.450) FiO2 % 100.0 50.0 Microbiology Microbiology Date/Time Source Procedure Growth Status 02/01/25 05:00 Catheter Tip Aerobic Culture - Preliminary Resulted 01/24/25 10:06 Bronchial Washings Gram Stain - Final Complete 01/24/25 10:06 Bronchial Washings Respiratory Culture - Final Complete 01/23/25 19:15 Blood Blood Culture - Final NO GROWTH AFTER 5 DAYS OF INCUBATION. Complete 01/10/25 09:18 Voided Urine Urine Culture - Final Presumptive Sully albicans Yeast, not Sully albicans Complete Labs and/or images reviewed: Labs reviewed by me, Image(s) reviewed by me Assessment/Plan Assessment/Plan Impression: -septic shock -right foot osteomyelitis -peripheral arterial disease -acute hypoxic respiratory failure -acute on chronic systolic and diastolic heart failure -end-stage renal disease with hemodialysis -diabetes mellitus Plan: Events: Patient on low-dose norepinephrine at 2 mcg per minute. Heart rate continues to be tachycardic with what appears to be a flutter 2-1 conduction. FiO2 now 50%. Peep at eight. [place] cultures given persistent leukocytosis. -stat BMP, Mag, PT/PTT. ABG reviewed. Patient has worsening hypoxia, now on 100% FiO2. -continue current ventilator settings. Wean FiO2 to keep saturation greater than 92% -pulmonology consultation: Recommendations reviewed. Assess appropriateness for weaning trial. If patient unsuccessful, we will recommend tracheostomy. -nephrology consultation: Recommendations reviewed. -cardiology consultation: Assess appropriateness for possible cardioversion -regular insulin sliding scale -repeat labs, ABG, and chest x-ray in a.m. -plan to discuss with the patient's family regarding plan of care which includes possible tracheostomy. Critical care time spent with patient discussing and formulating plan of care: 40 minutes. This does not include time spent performing procedures. This medical document was created using an electronic medical record system with [employer] system. Although this document has been carefully reviewed, there may still be some phonetic and typographical errors. These areas are purely typographical due to imperfections of the software programs, and do not reflect any compromise in the patient's medical care. Plan discussed with: Patient, Other (RN) My Orders Orders - TERRY REDD NP Procedure Category Date Status Time Amiodarone PHA 02/05/25 In Process 450mg/250ml Ae 16:15 Communication Order ORDERS 02/05/25 Transmitted 16:18 Communication Order ORDERS 02/05/25 Transmitted 16:45 Hydrocortisone PHA 02/06/25 Logged Succinate Inj 22:00 Respiratory Culture REINALDO 02/06/25 Logged W/ Gs 08:39 Wound Culture W/ Gs REINALDO 02/06/25 Logged 08:39 Blood Culture REINALDO 02/06/25 Logged 08:39 Complete Blood Count LAB 02/07/25 Verified 05:00 Complete Blood Count LAB 02/08/25 Verified 05:00 Complete Blood Count LAB 02/09/25 Verified 05:00 Basic Metabolic Panel LAB 02/07/25 Verified 04:00 Magnesium LAB 02/07/25 Verified 04:00 Chest Portable XY 02/07/25 Logged 04:00 Abg W/ Co-Ox RT 02/07/25 Logged 05:00 Abg W/ Co-Ox RT 02/08/25 Logged 05:00 Abg W/ Co-Ox RT 02/09/25 Logged 05:00 Date of Service: Feb 06, 2025 Billing Provider: TERRY REDD NP Common Visit Codes: [id number] CARE 30-74 MIN TERRY REDD NP Feb 06, 2025 08:49
--- NOTE | 2025-02-06 11:08 | DVHPN2 ---
Consult Progress Note Date Seen: Feb 06, 2025 Subjective Other Systems: Notified of persistent tachycarrhythmias Objective vital signs Vital Sign Date Time Temp Pulse Resp B/P (MAP) Pulse Ox O2 Delivery O2 Flow Rate FiO2 02/06/25 10:45 127 24 92/57 (69) 100 02/06/25 10:05 40 02/06/25 08:00 97.3 97.3 02/06/25 06:13 Mechanical Ventilator+ Total Intake and Output 02/05/25 02/05/25 02/06/25 15:00 23:00 07:00 Intake Total 209.348 ml 390.416 ml 406.92 ml Output Total 0 ml Balance 209.348 ml 390.416 ml 406.92 ml medications Current Medications Medications Dose Ordered Sig/Seth Route Start Time Stop Time Status Last Admin Dose Admin Acetaminophen 325 mg Q4HP PRN PO 01/10/25 00:30 01/22/25 00:29 325 MG Ondansetron HCl 4 mg Q4HP PRN IV 01/10/25 00:30 01/20/25 16:19 4 MG Atorvastatin Calcium 40 mg HS PO 01/10/25 22:00 02/05/25 21:25 40 MG Levothyroxine Sodium 125 mcg QAM@0600 PO 01/11/25 06:00 02/06/25 05:51 125 MCG Sodium Chloride 10 ml QSHIFT@,22 IV 01/12/25 22:00 02/06/25 09:14 10 ML Dextrose 50 ml UD PRN IV 01/14/25 14:15 01/24/25 12:10 50 ML Fluconazole 100 mg POSTDI PRN PO 01/15/25 12:45 Cancel Albumin Human 100 ml @ 100 mls/hr WD PRN IV 01/18/25 21:00 02/03/25 11:36 100 MLS/HR Albuterol 2.5 mg Q4HPRN PRN NEB 01/20/25 16:00 02/04/25 05:45 2.5 MG Vancomycin HCl 0 ml @ 0 mls/hr PER PHARMACY IV 01/21/25 12:15 Cancel Fentanyl Citrate 250 ml @ 2.5 mls/hr Q24H IV 01/23/25 13:45 02/06/25 09:26 30 MLS/HR Enteral Nutritional Formula 1,000 ml 30ML/HR GT 01/23/25 18:00 01/26/25 23:26 1,000 ML Pantoprazole Sodium 40 mg BID IV 01/23/25 22:00 02/06/25 09:14 40 MG Sodium Chloride 1,000 ml @ 200 mls/hr Q5H IV 01/25/25 11:00 Cancel Amiodarone HCl 100 mg Q12HR PO 01/25/25 22:00 02/04/25 22:31 100 MG Midazolam HCl 100 ml @ 1 mls/hr Q24H IV 01/25/25 18:00 02/05/25 10:17 1 MLS/HR Diagnostic Test (Pha) 1 strip IQ4HR 01/28/25 12:00 02/06/25 08:39 1 STRIP Insulin Human Regular IQ4HR SC 01/28/25 12:00 02/06/25 08:43 3 UNITS Levalbuterol HCl 1.25 mg Q4HR NEB 02/02/25 14:30 02/06/25 10:04 1.25 MG Labetalol HCl 10 mg ONCE PRN IV 02/02/25 15:15 Ipratropium [place] 0.5 mg Q4HR NEB 02/02/25 18:00 02/06/25 10:04 0.5 MG Heparin Sodium/ Dextrose 250 ml @ 6 mls/hr Q24H IV 02/03/25 14:00 Hold Enoxaparin Sodium 70 mg DAILY SC 02/04/25 15:30 02/06/25 09:15 70 MG Ertapenem 0.5 gm/ Sodium Chloride 50 ml @ 100 mls/hr DAILY@POSTDI IV 02/04/25 15:30 Norepinephrine Bitartrate 32 mg/ Sodium Chloride 250 ml @ 0.938 mls/ hr Q24H IV 02/05/25 10:00 02/05/25 10:17 1.875 MLS/HR Amiodarone HCl 250 ml @ 16.66 mls/ hr Q15H1M IV 02/05/25 16:15 02/06/25 09:26 16.66 MLS/HR Hydrocortisone Sodium Succinate 50 mg BID IV 02/06/25 22:00 Examination: GENERAL:Abnormal, LUNGS:Abnormal (Coarse. 40% FiO2), CVS:Abnormal (On low-dose vasopressor. Currently Sinus tachycardia with associated RBBB), NEURO:Abnormal (Chemically sedated) laboratory and microbiology Laboratory Tests 02/06/25 01:40 02/05/25 22:34 Test 02/06/25 01:40 Range/Units Serum Glucose 203 H 74-106 mg/dL Problem List/Assessment/Plan Problem List/Assessment/Plan Non-sustained ventricular tachycardia Peripheral arterial disease status post CONTRACT ACCOUNTANT f the right peroneal artery () Right lower extremity cellulitis/osteomyelitis Chronic HFrEF, NYHA class II Biventricular heart failure Presence of AICD ([place]) Pulmonary hypertension, severe Left upper extremity DVT Dyslipidemia Thyroid disease End-stage renal disease on hemodialysis Severe anemia/thrombocytopenia s/p transfusions Type 2 diabetes mellitus Obesity Plan/Recommendation (Dr. Sanchez) Recent transthoracic echocardiogram revealed LVEF 20% with global hypokinesis (see full dictated report). Continue amiodarone drip per pharmacy protocol and load on digoxin therapy for rate control. Continue electrolyte replenishment as necessary K>4 & Mg>2 and low-dose amiodarone GT (monitor LFTs). Continue vasopressor for hemodynamic support. Currently off DAPT with recent CONTRACT ACCOUNTANT of the RLE which places the patient at high-risk for in-stent restenosis, consider reinitiation when appropriate. Continue lipid-lowering agent. Initiate GDMT for HFrEF when able to tolerate. DVT/VTE prophylaxis: initiate SCDs. Consider goals of care. Grave prognosis. Thank you for allowing us to care for this patient. Critical care time: 30 min. This medical document was created using an electronic medical record system with voice recognition software and computerized dictation system. Although this document has been carefully reviewed, there might still be some phonetic and typographical errors. Occasional wrong-word or ``sound-alike substitutions may have occurred due to the inherent limitations of voice recognition software. These areas are purely typographical due to imperfections of the software programs and do not reflect any compromise in the patient's medical care. Please read the chart carefully and recognize, using context, where these substitutions have occurred. Plan discussed with: Other Dietary Evaluation Review Comments: Nutrition Recommendation 1) CCHO 60gm + renal standard diet 2) Nephro-santosh 1 tab daily 3) Lexx 1 pk daily 4) Monitor PO intake, lab values, weight trend, and I/O Expected Outcomes/Goals: To meet >75% estimated needs Wound to improve Fu 3-5 days CC Plasma Assessment Blood Product Administration S: [id number] Date of Service: Feb 06, 2025 Billing Provider: RENÉE LOBATO Cardiology Common Codes: [id number] CARE 30-74 MIN RENÉE LOBATO Feb 06, 2025 11:08
[2025-02-06] MEDS: DIGOXIN (250MCG/ML) 2 ML AMPULE IV ONE (11:47)
--- NOTE | 2025-02-06 18:00 | DVHPN2 ---
Progress Note Date Seen: Feb 06, 2025 Resident Creating Document: MERLY THAKUR RESIDENT Medical Necessity Reason Pt with a Central, PICC or Fol: Yes The following are medically ne: Central Line, [place] Catheter Subjective Review of Systems H&H stable Decreased oxygenation and vasopressor requirements Minimal bowel movements reported Objective vital signs Vital Sign Date Time Temp Pulse Resp B/P (MAP) Pulse Ox O2 Delivery O2 Flow Rate FiO2 02/06/25 17:00 121 24 85/43 (57) 99 107/52 (70) 02/06/25 16:00 35 02/06/25 16:00 97.4 97.4 02/06/25 16:00 Mechanical Ventilator+ Total Intake and Output 02/05/25 02/05/25 02/06/25 15:00 23:00 07:00 Intake Total 209.348 ml 390.416 ml 456.518 ml Output Total 0 ml Balance 209.348 ml 390.416 ml 456.518 ml medications Current Medications Medications Dose Ordered Sig/Seth Route Start Time Stop Time Status Last Admin Dose Admin Acetaminophen 325 mg Q4HP PRN PO 01/10/25 00:30 01/22/25 00:29 325 MG Ondansetron HCl 4 mg Q4HP PRN IV 01/10/25 00:30 01/20/25 16:19 4 MG Atorvastatin Calcium 40 mg HS PO 01/10/25 22:00 02/05/25 21:25 40 MG Levothyroxine Sodium 125 mcg QAM@0600 PO 01/11/25 06:00 02/06/25 05:51 125 MCG Sodium Chloride 10 ml QSHIFT@ IV 01/12/25 22:00 02/06/25 09:14 10 ML Dextrose 50 ml UD PRN IV 01/14/25 14:15 01/24/25 12:10 50 ML Fluconazole 100 mg POSTDI PRN PO 01/15/25 12:45 Cancel Albumin Human 100 ml @ 100 mls/hr WD PRN IV 01/18/25 21:00 02/03/25 11:36 100 MLS/HR Albuterol 2.5 mg Q4HPRN PRN NEB 01/20/25 16:00 02/04/25 05:45 2.5 MG Vancomycin HCl 0 ml @ 0 mls/hr PER PHARMACY IV 01/21/25 12:15 Cancel Fentanyl Citrate 250 ml @ 2.5 mls/hr Q24H IV 01/23/25 13:45 02/06/25 09:26 30 MLS/HR Enteral Nutritional Formula 1,000 ml 30ML/HR GT 01/23/25 18:00 01/26/25 23:26 1,000 ML Pantoprazole Sodium 40 mg BID IV 01/23/25 22:00 02/06/25 09:14 40 MG Sodium Chloride 1,000 ml @ 200 mls/hr Q5H IV 01/25/25 11:00 Cancel Amiodarone HCl 100 mg Q12HR PO 01/25/25 22:00 02/04/25 22:31 100 MG Midazolam HCl 100 ml @ 1 mls/hr Q24H IV 01/25/25 18:00 02/05/25 10:17 1 MLS/HR Diagnostic Test (Pha) 1 strip IQ4HR 01/28/25 12:00 02/06/25 16:04 1 STRIP Insulin Human Regular IQ4HR SC 01/28/25 12:00 02/06/25 11:57 2 UNITS Levalbuterol HCl 1.25 mg Q4HR NEB 02/02/25 14:30 02/06/25 13:36 1.25 MG Ipratropium [place] 0.5 mg Q4HR NEB 02/02/25 18:00 02/06/25 13:36 0.5 MG Heparin Sodium/ Dextrose 250 ml @ 6 mls/hr Q24H IV 02/03/25 14:00 Hold Enoxaparin Sodium 70 mg DAILY SC 02/04/25 15:30 02/06/25 09:15 70 MG Ertapenem 0.5 gm/ Sodium Chloride 50 ml @ 100 mls/hr DAILY@POSTDI IV 02/04/25 15:30 Norepinephrine Bitartrate 32 mg/ Sodium Chloride 250 ml @ 0.938 mls/ hr Q24H IV 02/05/25 10:00 02/05/25 10:17 1.875 MLS/HR Amiodarone HCl 250 ml @ 16.66 mls/ hr Q15H1M IV 02/05/25 16:15 02/06/25 09:26 16.66 MLS/HR Hydrocortisone Sodium Succinate 50 mg BID IV 02/06/25 22:00 Examination Gen - no pallor, no scleral icterus Skin - Patients skin is warm and dry. HEENT - normocephalic, atraumatic, dry mucous membranes. Neck - supple, no lymphadenopathy Pulmonary - decreased breath sounds on the left side cardiovascular - regular S1,S2 heard GI - soft abdomen. Bowel sounds hypoactive. Neurological - sedated and on mechanical ventilation laboratory and microbiology Laboratory Tests 02/06/25 01:40 02/05/25 22:34 Test 02/06/25 01:40 Range/Units Serum Glucose 203 H 74-106 mg/dL Microbiology Date/Time Source Procedure Growth Status 02/01/25 05:00 Catheter Tip Aerobic Culture - Final Complete 01/24/25 10:06 Bronchial Washings Gram Stain - Final Complete 01/24/25 10:06 Bronchial Washings Respiratory Culture - Final Complete 01/23/25 19:15 Blood Blood Culture - Final NO GROWTH AFTER 5 DAYS OF INCUBATION. Complete 01/10/25 09:18 Voided Urine Urine Culture - Final Presumptive Sully albicans Yeast, not Sully albicans Complete Problem List/Assessment/Plan Problem List/Assessment/Plan Assessment Possible GI bleed Sepsis likely from osteomyelitis Acute on chronic systolic heart failure Thrombocytopenia Coagulopathy PTA on CKD likely due to VMN Left upper extremity DVT Cardiopulmonary arrest s/p ROSC Plan - Protonix 40 mg IV b.i.d. - once the patient is hemodynamically stable, she may benefit from EGD - watch H&H - tolerating feeding grew NG tube, check residuals qshift, continue - avoid anticoagulation Poor prognosis Plan discussed with Dr. Soto Plan discussed with: Other (ALBERTINA Srivastava) Dietary Evaluation Review Comments: Nutrition Recommendation 1) CCHO 60gm + renal standard diet 2) Nephro-santosh 1 tab daily 3) Lexx 1 pk daily 4) Monitor PO intake, lab values, weight trend, and I/O Expected Outcomes/Goals: To meet >75% estimated needs Wound to improve Fu 3-5 days CC Plasma Assessment Blood Product Administration S: [id number] MERLY THAKUR RESIDENT Feb 06, 2025 18:00
--- NOTE | 2025-02-06 18:52 | DVHPN2 ---
[facility] DOS: 02/06/2025 Patient seen and examined at bedside. Intubated on mechanical ventilator. Overnight events reviewed. Reviewed: Care Plan, H&P Changes from previous H/P or p: No Changes General: Per HPI Objective Vitals Vital Signs Date Time Temp Pulse Resp B/P (MAP) Pulse Ox O2 Delivery O2 Flow Rate FiO2 02/06/25 18:22 124 24 123/71 (88) 98 35 02/06/25 18:00 Mechanical Ventilator+ 02/06/25 16:00 97.4 97.4 Intake/Output Intake and Output 02/06/25 07:00 Intake Total 1056.282 ml Output Total 0 ml Balance 1056.282 ml Intake Oral 60 ml IV Total 966.282 ml Tube Feeding 30 ml Output Urine Total 0 ml Exam Gen.: Patient lying in bed in medical ICU. Intubated on mechanical ventilator. Head: Normocephalic, atraumatic. Eyes: PERRLA. Ears: Normal external anatomy. Throat: Endotracheal tube and orogastric tube in place. Neck: Supple, trachea midline. Chest: Transmitted breath sounds bilaterally. Decreased air entry bilaterally. No wheezing. Bibasilar crackles. Cardiovascular: Positive S1, positive S2. Regular rate and rhythm. Abdomen: Positive bowel sounds in all 4 quadrants. Soft, nontender, nondistended. : [place] in place. Normal external genitalia. Rectal: Deferred. Skin: Warm, dry. Right foot osteomyelitis. Extremities: 2+ radial pulses bilaterally. No lower extremity edema. Neuro: Off sedation General Appearance: moderate distress, Other (Intubated) HEENT: Atraumatic, PERRLA Lungs: Clear to auscultation, Other (On vent, transmitted breath sounds bilaterally.) Cardiovascular: Normal S1, Normal S2, Other (Atrial flutter with two-to-one conduction) Abdomen: Normal bowel sounds, Soft, No tenderness, No hepatospenomegaly Musculoskeletal: Other (Unable to assess) Neuro: Other (Unable to assess) Skin: Dry, Intact, Wounds (See nurse notes and pictures), Other (Right foot necrosis) Psych/Mental Status: Other (Unable to assess) Medications Current Medications Medications Dose Ordered Sig/Seth Route Start Time Stop Time Status Last Admin Dose Admin Acetaminophen 325 mg Q4HP PRN PO 01/10/25 00:30 01/22/25 00:29 325 MG Ondansetron HCl 4 mg Q4HP PRN IV 01/10/25 00:30 01/20/25 16:19 4 MG Atorvastatin Calcium 40 mg HS PO 01/10/25 22:00 02/05/25 21:25 40 MG Levothyroxine Sodium 125 mcg QAM@0600 PO 01/11/25 06:00 02/06/25 05:51 125 MCG Sodium Chloride 10 ml QSHIFT@, IV 01/12/25 22:00 02/06/25 09:14 10 ML Dextrose 50 ml UD PRN IV 01/14/25 14:15 01/24/25 12:10 50 ML Fluconazole 100 mg POSTDI PRN PO 01/15/25 12:45 Cancel Albumin Human 100 ml @ 100 mls/hr WD PRN IV 01/18/25 21:00 02/03/25 11:36 100 MLS/HR Albuterol 2.5 mg Q4HPRN PRN NEB 01/20/25 16:00 02/04/25 05:45 2.5 MG Vancomycin HCl 0 ml @ 0 mls/hr PER PHARMACY IV 01/21/25 12:15 Cancel Fentanyl Citrate 250 ml @ 2.5 mls/hr Q24H IV 01/23/25 13:45 02/06/25 09:26 30 MLS/HR Enteral Nutritional Formula 1,000 ml 30ML/HR GT 01/23/25 18:00 01/26/25 23:26 1,000 ML Pantoprazole Sodium 40 mg BID IV 01/23/25 22:00 02/06/25 09:14 40 MG Sodium Chloride 1,000 ml @ 200 mls/hr Q5H IV 01/25/25 11:00 Cancel Amiodarone HCl 100 mg Q12HR PO 01/25/25 22:00 02/04/25 22:31 100 MG Midazolam HCl 100 ml @ 1 mls/hr Q24H IV 01/25/25 18:00 02/05/25 10:17 1 MLS/HR Diagnostic Test (Pha) 1 strip IQ4HR 01/28/25 12:00 02/06/25 16:04 1 STRIP Insulin Human Regular IQ4HR SC 01/28/25 12:00 02/06/25 11:57 2 UNITS Levalbuterol HCl 1.25 mg Q4HR NEB 02/02/25 14:30 02/06/25 18:22 1.25 MG Ipratropium [place] 0.5 mg Q4HR NEB 02/02/25 18:00 02/06/25 18:22 0.5 MG Heparin Sodium/ Dextrose 250 ml @ 6 mls/hr Q24H IV 02/03/25 14:00 Hold Enoxaparin Sodium 70 mg DAILY SC 02/04/25 15:30 02/06/25 09:15 70 MG Ertapenem 0.5 gm/ Sodium Chloride 50 ml @ 100 mls/hr DAILY@POSTDI IV 02/04/25 15:30 Norepinephrine Bitartrate 32 mg/ Sodium Chloride 250 ml @ 0.938 mls/ hr Q24H IV 02/05/25 10:00 02/05/25 10:17 1.875 MLS/HR Amiodarone HCl 250 ml @ 16.66 mls/ hr Q15H1M IV 02/05/25 16:15 02/06/25 09:26 16.66 MLS/HR Hydrocortisone Sodium Succinate 50 mg BID IV 02/06/25 22:00 Laboratory Results Laboratory Tests 02/05/25 22:34 02/06/25 01:40 Chemistry Test 02/06/25 01:40 Albumin 3.1 g/dL (3.2-4.8) L Calcium Level 9.0 mg/dL (8.7-10.4) Total Protein 5.6 g/dL (5.7-8.2) L LFT Test 02/06/25 01:40 Alanine Aminotransferase (ALT) 30 U/L (7-40) Alkaline Phosphatase 138 U/L (46-116) H Aspartate Amino Transferase (AST) 31 U/L (13-40) Total Bilirubin 1.2 mg/dL (0.2-1.0) H Urinalysis Test 01/10/25 09:18 Urine Color Yellow (Yellow) Urine Clarity Turbid (Clear) H Urine pH 6.5 (5.0-9.0) Urine Specific [place] 1.019 (1.001-1.035) Urine Protein 2+ (Negative) H Urine Ketones Negative (Negative) Urine Blood Negative /uL (Negative) Urine Nitrite Negative (Negative) Urine Bilirubin Negative (Negative) Urine Urobilinogen Normal mg/dL (Negative) Urine Leukocyte Esterase Trace /uL (Negative) Urine RBC 7 /hpf (0 - 4) Urine Microscopic WBC 4 /HPF (0-5) Urine Squamous Epithelial Cells Few /hpf (<5) Urine Bacteria None seen /hpf (None Seen) Urine Yeast (Budding) Moderate /hpf (None Seen) Urine Glucose 1+ mg/dL (Normal) H Blood Gas Results Test 02/06/25 07:25 Arterial Blood pH 7.356 (7.350-7.450) FiO2 % 50.0 Microbiology Microbiology Date/Time Source Procedure Growth Status 02/01/25 05:00 Catheter Tip Aerobic Culture - Final Complete 01/24/25 10:06 Bronchial Washings Gram Stain - Final Complete 01/24/25 10:06 Bronchial Washings Respiratory Culture - Final Complete 01/23/25 19:15 Blood Blood Culture - Final NO GROWTH AFTER 5 DAYS OF INCUBATION. Complete 01/10/25 09:18 Voided Urine Urine Culture - Final Presumptive Sully albicans Yeast, not Sully albicans Complete Assessment/Plan Assessment/Plan Impression: Acute hypoxic respiratory failure On mechanical ventilator Acute CHF exacerbation End-stage renal disease, on hemodialysis Osteomyelitis DVT, left upper extremity Overweight Events: Remains on vent support On AC mode; RR 24, VT 400, PEEP 8, FiO2 40% Decrease PEEP to 5. Patient noted to desaturate with turns. Fentanyl drip for analgesia. ABG reviewed, compensated. CXR on 02/05/[address]. Stable appearing extensive multifocal bilateral pulmonary airspace disease with moderate consolidative features. Cardiomegaly. Hemodialysis per Nephrology Blood pressure dropped yesterday during hemodialysis. Monitor blood pressure Digoxin load. Continue amiodarone drip for atrial fibrillation with rapid ventricular response - tapered to 0.5 mg/min Levophed 2 mcg/min for hemodynamic support Titrate to keep MAP above 65 mmHg/SBP above 90 mmHg. Follow up Cardiology recs. Of note, patient had a cardiopulmonary arrest on 02/02/25 for 1 minute, ROSC achieved. Heparin drip due to left upper extremity DVT - currently on hold. Monitor hemoglobin - currently stable. Transfuse if less than 7.0 g/dL. On Lovenox SC. Continue bronchodilators. Continue antibiotics. Continue IV stress dose steroids, q.8 hours Hemodialysis per Nephrology Follow up Nephrology recommendations Monitor renal function Monitor electrolytes. Supplement as necessary. Magnesium 2 g IV given yesterday. Accu-Cheks, ISS. Tube feeds for nutritional support DTI sacrum - wound care. Note, patient with overall poor prognosis High likelihood of demise. Left upper extremity venous duplex revealed DVT in left axillary and brachial veins. Labs and imaging reviewed. Rest of plan as noted below. Plan: s/p intubation on mechanical ventilator. On AC mode; RR 24, VT 400, PEEP 5, FiO2 40% S/p bronchoscopy on 11/24/24 - Results from bronchial washings show no growth. Titrate FIO2 to keep O2 saturation above 90%. VAP bundle. Daily ABG and CXR while intubated Continue bronchodilators. Continue antibiotics. Follow up cultures. IV steroids Pressors for hemodynamic support Titrate to keep MAP above 65 mmHg/SBP above 90 mmHg. Accu-Cheks, ISS Wound care. Monitor H&H. Hemodialysis per Nephrology Monitor renal function Monitor electrolytes. Supplement as necessary. Monitor ins and outs. Maintain euvolemia. GI prophylaxis. DVT prophylaxis. Prognosis: Poor given patient's multiple co-morbidities. Condition: Critical Rest of plan per hospitalist and other consultants. A total of 35 minutes of critical care time was spent reviewing the patient record, examining the patient, making a diagnostic and therapeutic plan, discussing this plan with the medical personnel, following up on diagnostic studies and following the patient for clinical stability excluding any and all procedures. At least 50% of this time was spent in direct, [id number] contact. Thank you, Dr. Bowie, for allowing me to participate in this patient's care. Further recommendations will depend on the patient's clinical course. Please do not hesitate to contact me if you have any questions or concerns. This medical document was created using an electronic medical record system with [employer] dictation system. Although these documentations are being carefully reviewed, there may still be some phonetic and typographical changes. The errors are purely typographical, due to imperfection on the software program, and do not reflect any compromise in the patient's medical care. Plan discussed with: Other (ALBERTINA Crawford) My Orders Orders - ALCON GUTHRIE MD Procedure Category Date Status Time Abg W/ Co-Ox RT 02/06/25 Logged 06:00 Ventilator Orders RT 02/06/25 Transmitted 12:18 Visit Coding Pulmonary Billing Provider: ALCON GUTHRIE MD Date of Service if different f: Feb 06, 2025 Common Visit Codes: [id number] INP/OBS CARE(HIGH), [id number] CARE 30-74 MIN ALCON GUTHRIE MD Feb 06, 2025 18:52
--- NOTE | 2025-02-06 21:17 | DVHPN2 ---
Consult Progress Note Objective vital signs Vital Sign Date Time Temp Pulse Resp B/P (MAP) Pulse Ox O2 Delivery O2 Flow Rate FiO2 02/06/25 20:20 135/63 02/06/25 20:09 125 24 96 35 02/06/25 18:00 Mechanical Ventilator+ 02/06/25 16:00 97.4 97.4 Total Intake and Output 02/05/25 02/05/25 02/06/25 15:00 23:00 07:00 Intake Total 209.348 ml 390.416 ml 456.518 ml Output Total 0 ml Balance 209.348 ml 390.416 ml 456.518 ml medications Current Medications Medications Dose Ordered Sig/Seth Route Start Time Stop Time Status Last Admin Dose Admin Acetaminophen 325 mg Q4HP PRN PO 01/10/25 00:30 01/22/25 00:29 325 MG Ondansetron HCl 4 mg Q4HP PRN IV 01/10/25 00:30 01/20/25 16:19 4 MG Atorvastatin Calcium 40 mg HS PO 01/10/25 22:00 02/05/25 21:25 40 MG Levothyroxine Sodium 125 mcg QAM@0600 PO 01/11/25 06:00 02/06/25 05:51 125 MCG Sodium Chloride 10 ml QSHIFT@, IV 01/12/25 22:00 02/06/25 09:14 10 ML Dextrose 50 ml UD PRN IV 01/14/25 14:15 01/24/25 12:10 50 ML Fluconazole 100 mg POSTDI PRN PO 01/15/25 12:45 Cancel Albumin Human 100 ml @ 100 mls/hr WD PRN IV 01/18/25 21:00 02/03/25 11:36 100 MLS/HR Albuterol 2.5 mg Q4HPRN PRN NEB 01/20/25 16:00 02/04/25 05:45 2.5 MG Vancomycin HCl 0 ml @ 0 mls/hr PER PHARMACY IV 01/21/25 12:15 Cancel Fentanyl Citrate 250 ml @ 2.5 mls/hr Q24H IV 01/23/25 13:45 02/06/25 09:26 30 MLS/HR Enteral Nutritional Formula 1,000 ml 30ML/HR GT 01/23/25 18:00 01/26/25 23:26 1,000 ML Pantoprazole Sodium 40 mg BID IV 01/23/25 22:00 02/06/25 09:14 40 MG Sodium Chloride 1,000 ml @ 200 mls/hr Q5H IV 01/25/25 11:00 Cancel Amiodarone HCl 100 mg Q12HR PO 01/25/25 22:00 02/04/25 22:31 100 MG Midazolam HCl 100 ml @ 1 mls/hr Q24H IV 01/25/25 18:00 02/05/25 10:17 1 MLS/HR Diagnostic Test (Pha) 1 strip IQ4HR 01/28/25 12:00 02/06/25 16:04 1 STRIP Insulin Human Regular IQ4HR SC 01/28/25 12:00 02/06/25 11:57 2 UNITS Levalbuterol HCl 1.25 mg Q4HR NEB 02/02/25 14:30 02/06/25 18:22 1.25 MG Ipratropium [place] 0.5 mg Q4HR NEB 02/02/25 18:00 02/06/25 18:22 0.5 MG Heparin Sodium/ Dextrose 250 ml @ 6 mls/hr Q24H IV 02/03/25 14:00 Hold Enoxaparin Sodium 70 mg DAILY SC 02/04/25 15:30 02/06/25 09:15 70 MG Ertapenem 0.5 gm/ Sodium Chloride 50 ml @ 100 mls/hr DAILY@POSTDI IV 02/04/25 15:30 Norepinephrine Bitartrate 32 mg/ Sodium Chloride 250 ml @ 0.938 mls/ hr Q24H IV 02/05/25 10:00 02/05/25 10:17 1.875 MLS/HR Amiodarone HCl 250 ml @ 16.66 mls/ hr Q15H1M IV 02/05/25 16:15 02/06/25 09:26 16.66 MLS/HR Hydrocortisone Sodium Succinate 50 mg BID IV 02/06/25 22:00 laboratory and microbiology Laboratory Tests 02/06/25 01:40 02/05/25 22:34 Test 02/06/25 01:40 Range/Units Serum Glucose 203 H 74-106 mg/dL Problem List/Assessment/Plan Problem List/Assessment/Plan influenza a, covid, rsv negative BAL culture and blood cultures negative mrsa nares negative vancomycin trough therapuetic, levophed ongoing and high vent needs = levophed 4, fio2 70%, cardiology notes patient is off DAPT and at risk for instent thrombosis Plans: copd and chf exacerbation per cardiology and pulmonology team leukocytosis related to hydrocortisone use consider CT R foot to evaluate for abscess or hematoma when more clinically stable 6 weeks ertapenem anticipated. dialysis as tolerated maps>65 Dietary Evaluation Review Comments: Nutrition Recommendation 1) CCHO 60gm + renal standard diet 2) Nephro-santosh 1 tab daily 3) Lexx 1 pk daily 4) Monitor PO intake, lab values, weight trend, and I/O Expected Outcomes/Goals: To meet >75% estimated needs Wound to improve Fu 3-5 days CC Plasma Assessment Blood Product Administration S: [id number] CONY TAYLOR MD Feb 06, 2025 21:17
[2025-02-06] MEDS: HYDROCORTISONE SOD SUCC 100 MG/2ML INJ VIAL IV SCH (22:07)
[2025-02-07] VITALS (97 sets, daily range): BP systolic 67–203; BP diastolic 20–93; PULSE 61–129; RESP 15–25; TEMP 97.2–98.4; O2SAT 83–100
[2025-02-07 03:32] LABS: Hematocrit 28.3 % (36.0-46.0); Hemoglobin 9.3 g/dL (12.2-16.2); Mean Corpuscular Hemoglobin 30.7 pg (28.0-32.0); Mean Corpuscular Volume 93.1 fL (80.0-100.0); Nucleated Red Blood Cells % 0.1 %
[2025-02-07 03:46] LABS: Chloride 99 mmol/L (98-107); Potassium 4.4 mmol/L (3.5-5.1); Sodium 137 mmol/L (136-145)
[2025-02-07 03:47] LABS: Anion Gap 15 (5-15); Calcium 8.8 mg/dL (8.7-10.4); Carbon Dioxide 23 mmol/L (20-31)
[2025-02-07 03:52] LABS: BUN/Creatinine Ratio 17.8 (10.0-20.0)
[2025-02-07 03:53] LABS: Magnesium 2.5 mg/dL (1.6-2.6)
[2025-02-07 03:56] LABS: Blood Urea Nitrogen 77 mg/dL (9-23); Glucose 169 mg/dL (74-106)
--- NOTE | 2025-02-07 05:14 | DVH ---
CHEST RADIOGRAPH Indication: pna Technique: Single frontal view of the chest was obtained COMPARISON: XY CHEST PORTABLE on DOS: 02/05/25, XY CHEST PORTABLE on DOS: 02/04/25, XY CHEST PORTABLE on DOS: 02/03/25, XY CHEST PORTABLE on DOS: 02/02/25, XY CHEST PORTABLE on DOS: 02/02/25 FINDINGS: Lines and Tubes: Slight interval advancement of the endotracheal tube such that the tip now projects approximately 3.6 cm above the level of the rod. Enteric catheter unchanged. Left anterior chest wall cardiac pacing device. Lungs: Stable appearing extensive patchy multifocal bilateral pulmonary airspace disease with consolidative features. Pleura: No effusion. No pneumothorax. Cardiomediastinal contours: Cardiomegaly. Bones: Unremarkable IMPRESSION: 1. Slight interval advancement of the endotracheal tube. Enteric catheter unchanged. 2. Stable extensive patchy multifocal bilateral pulmonary airspace disease with consolidative features. 3. Cardiomegaly.
--- NOTE | 2025-02-07 07:25 | DVHPN2 ---
Consult Progress Note Subjective Patient reports: Feels better (remains intubated, no sputum production, on 1-2 mcg levophed) Objective vital signs Vital Sign Date Time Temp Pulse Resp B/P (MAP) Pulse Ox O2 Delivery O2 Flow Rate FiO2 02/07/25 07:04 62 24 123/51 (75) 99 30 02/07/25 06:00 Mechanical Ventilator+ 02/07/25 04:00 98.1 98.1 Total Intake and Output 02/06/25 02/06/25 02/07/25 15:00 23:00 07:00 Intake Total 259.196 ml 231.918 ml 661.527 ml Output Total 0 ml Balance 259.196 ml 231.918 ml 661.527 ml medications Current Medications Medications Dose Ordered Sig/Seth Route Start Time Stop Time Status Last Admin Dose Admin Acetaminophen 325 mg Q4HP PRN PO 01/10/25 00:30 01/22/25 00:29 325 MG Ondansetron HCl 4 mg Q4HP PRN IV 01/10/25 00:30 01/20/25 16:19 4 MG Atorvastatin Calcium 40 mg HS PO 01/10/25 22:00 02/06/25 22:04 40 MG Levothyroxine Sodium 125 mcg QAM@0600 PO 01/11/25 06:00 02/07/25 06:14 125 MCG Sodium Chloride 10 ml QSHIFT@22 IV 01/12/25 22:00 02/06/25 22:05 10 ML Dextrose 50 ml UD PRN IV 01/14/25 14:15 01/24/25 12:10 50 ML Fluconazole 100 mg POSTDI PRN PO 01/15/25 12:45 Cancel Albumin Human 100 ml @ 100 mls/hr WD PRN IV 01/18/25 21:00 02/03/25 11:36 100 MLS/HR Albuterol 2.5 mg Q4HPRN PRN NEB 01/20/25 16:00 02/04/25 05:45 2.5 MG Vancomycin HCl 0 ml @ 0 mls/hr PER PHARMACY IV 01/21/25 12:15 Cancel Fentanyl Citrate 250 ml @ 2.5 mls/hr Q24H IV 01/23/25 13:45 02/07/25 00:15 15 MLS/HR Enteral Nutritional Formula 1,000 ml 30ML/HR GT 01/23/25 18:00 01/26/25 23:26 1,000 ML Pantoprazole Sodium 40 mg BID IV 01/23/25 22:00 02/06/25 22:04 40 MG Sodium Chloride 1,000 ml @ 200 mls/hr Q5H IV 01/25/25 11:00 Cancel Amiodarone HCl 100 mg Q12HR PO 01/25/25 22:00 02/04/25 22:31 100 MG Midazolam HCl 100 ml @ 1 mls/hr Q24H IV 01/25/25 18:00 02/07/25 05:24 2 MLS/HR Diagnostic Test (Pha) 1 strip IQ4HR 01/28/25 12:00 02/07/25 05:24 1 STRIP Insulin Human Regular IQ4HR SC 01/28/25 12:00 02/07/25 05:30 3 UNITS Levalbuterol HCl 1.25 mg Q4HR NEB 02/02/25 14:30 02/07/25 05:28 1.25 MG Ipratropium [place] 0.5 mg Q4HR NEB 02/02/25 18:00 02/07/25 05:28 0.5 MG Heparin Sodium/ Dextrose 250 ml @ 6 mls/hr Q24H IV 02/03/25 14:00 Hold Enoxaparin Sodium 70 mg DAILY SC 02/04/25 15:30 02/06/25 09:15 70 MG Ertapenem 0.5 gm/ Sodium Chloride 50 ml @ 100 mls/hr DAILY@POSTDI IV 02/04/25 15:30 Norepinephrine Bitartrate 32 mg/ Sodium Chloride 250 ml @ 0.938 mls/ hr Q24H IV 02/05/25 10:00 02/05/25 10:17 1.875 MLS/HR Amiodarone HCl 250 ml @ 16.66 mls/ hr Q15H1M IV 02/05/25 16:15 02/06/25 22:17 16.66 MLS/HR Hydrocortisone Sodium Succinate 50 mg BID IV 02/06/25 22:00 02/06/25 22:07 50 MG laboratory and microbiology Laboratory Tests 02/07/25 02:40 Test 02/07/25 02:40 Range/Units Serum Glucose 169 H 74-106 mg/dL Problem List/Assessment/Plan Problem List/Assessment/Plan influenza a, covid, rsv negative BAL culture and blood cultures negative mrsa nares negative levophed ongoing and high vent needs = levophed 2, fio2 30%, on heparin [id number] weaned cxr with extensive bilateral airspace disease, some consolidative features present. Plans: copd and chf exacerbation per cardiology and pulmonology team consider CT R foot to evaluate for abscess or hematoma when more clinically stable 6 weeks ertapenem anticipated, EOT date is 02/28/25. dialysis as tolerated, UOP is 0 maps>65 Plan discussed with: Patient Dietary Evaluation Review Comments: Nutrition Recommendation 1) CCHO 60gm + renal standard diet 2) Nephro-santosh 1 tab daily 3) Lexx 1 pk daily 4) Monitor PO intake, lab values, weight trend, and I/O Expected Outcomes/Goals: To meet >75% estimated needs Wound to improve Fu 3-5 days CC Plasma Assessment Blood Product Administration S: [id number] CONY TAYOLR MD Feb 07, 2025 07:25
--- NOTE | 2025-02-07 09:17 | DVHPN2 ---
Subjective Patient chemically sedated Reviewed: Care Plan, H&P Changes from previous H/P or p: No Changes General: Per HPI Objective Vitals Vital Signs Date Time Temp Pulse Resp B/P (MAP) Pulse Ox O2 Delivery O2 Flow Rate FiO2 02/07/25 09:11 63 24 132/55 (80) 98 30 02/07/25 06:00 Mechanical Ventilator+ 02/07/25 04:00 98.1 98.1 Intake/Output Intake and Output 02/07/25 07:00 Intake Total 1152.641 ml Output Total 0 ml Balance 1152.641 ml Intake Oral 60 ml IV Total 732.641 ml Blood Product 360 ml Output Urine Total 0 ml Stool Total 0 ml General Appearance: mild distress, Other (Intubated and sedated) HEENT: Atraumatic, PERRLA Lungs: Clear to auscultation, Other (Mechanical ventilation.) Cardiovascular: Normal S1, Normal S2, Other (Patient now in sinus rhythm, heart rate 65) Abdomen: Normal bowel sounds, Soft, No tenderness, No hepatospenomegaly Musculoskeletal: Other (Unable to assess) Extremities: No clubbing, No cyanosis, No edema, Normal pulses, No tenderness/swelling Neuro: Other (Unable to assess) Skin: Dry, Intact, Wounds (See nurse notes and pictures), Other (Right foot necrosis) Psych/Mental Status: Other (Unable to assess) Medications Current Medications Medications Dose Ordered Sig/Seth Route Start Time Stop Time Status Last Admin Dose Admin Acetaminophen 325 mg Q4HP PRN PO 01/10/25 00:30 01/22/25 00:29 325 MG Ondansetron HCl 4 mg Q4HP PRN IV 01/10/25 00:30 01/20/25 16:19 4 MG Atorvastatin Calcium 40 mg HS PO 01/10/25 22:00 02/06/25 22:04 40 MG Levothyroxine Sodium 125 mcg QAM@0600 PO 01/11/25 06:00 02/07/25 06:14 125 MCG Sodium Chloride 10 ml QSHIFT@ IV 01/12/25 22:00 02/06/25 22:05 10 ML Dextrose 50 ml UD PRN IV 01/14/25 14:15 01/24/25 12:10 50 ML Fluconazole 100 mg POSTDI PRN PO 01/15/25 12:45 Cancel Albumin Human 100 ml @ 100 mls/hr WD PRN IV 01/18/25 21:00 02/03/25 11:36 100 MLS/HR Albuterol 2.5 mg Q4HPRN PRN NEB 01/20/25 16:00 02/04/25 05:45 2.5 MG Vancomycin HCl 0 ml @ 0 mls/hr PER PHARMACY IV 01/21/25 12:15 Cancel Fentanyl Citrate 250 ml @ 2.5 mls/hr Q24H IV 01/23/25 13:45 02/07/25 00:15 15 MLS/HR Enteral Nutritional Formula 1,000 ml 30ML/HR GT 01/23/25 18:00 01/26/25 23:26 1,000 ML Pantoprazole Sodium 40 mg BID IV 01/23/25 22:00 02/06/25 22:04 40 MG Sodium Chloride 1,000 ml @ 200 mls/hr Q5H IV 01/25/25 11:00 Cancel Amiodarone HCl 100 mg Q12HR PO 01/25/25 22:00 02/04/25 22:31 100 MG Midazolam HCl 100 ml @ 1 mls/hr Q24H IV 01/25/25 18:00 02/07/25 05:24 2 MLS/HR Diagnostic Test (Pha) 1 strip IQ4HR 01/28/25 12:00 02/07/25 07:59 1 STRIP Insulin Human Regular IQ4HR SC 01/28/25 12:00 02/07/25 08:01 3 UNITS Levalbuterol HCl 1.25 mg Q4HR NEB 02/02/25 14:30 02/07/25 09:11 1.25 MG Ipratropium [place] 0.5 mg Q4HR NEB 02/02/25 18:00 02/07/25 09:11 0.5 MG Heparin Sodium/ Dextrose 250 ml @ 6 mls/hr Q24H IV 02/03/25 14:00 Hold Enoxaparin Sodium 70 mg DAILY SC 02/04/25 15:30 02/06/25 09:15 70 MG Ertapenem 0.5 gm/ Sodium Chloride 50 ml @ 100 mls/hr DAILY@POSTDI IV 02/04/25 15:30 Norepinephrine Bitartrate 32 mg/ Sodium Chloride 250 ml @ 0.938 mls/ hr Q24H IV 02/05/25 10:00 02/05/25 10:17 1.875 MLS/HR Amiodarone HCl 250 ml @ 16.66 mls/ hr Q15H1M IV 02/05/25 16:15 02/06/25 22:17 16.66 MLS/HR Hydrocortisone Sodium Succinate 50 mg BID IV 02/06/25 22:00 02/06/25 22:07 50 MG Laboratory Results Laboratory Tests 02/07/25 02:40 Chemistry Test 02/07/25 02:40 Calcium Level 8.8 mg/dL (8.7-10.4) Magnesium Level 2.5 mg/dL (1.6-2.6) Urinalysis Test 01/10/25 09:18 Urine Color Yellow (Yellow) Urine Clarity Turbid (Clear) H Urine pH 6.5 (5.0-9.0) Urine Specific [place] 1.019 (1.001-1.035) Urine Protein 2+ (Negative) H Urine Ketones Negative (Negative) Urine Blood Negative /uL (Negative) Urine Nitrite Negative (Negative) Urine Bilirubin Negative (Negative) Urine Urobilinogen Normal mg/dL (Negative) Urine Leukocyte Esterase Trace /uL (Negative) Urine RBC 7 /hpf (0 - 4) Urine Microscopic WBC 4 /HPF (0-5) Urine Squamous Epithelial Cells Few /hpf (<5) Urine Bacteria None seen /hpf (None Seen) Urine Yeast (Budding) Moderate /hpf (None Seen) Urine Glucose 1+ mg/dL (Normal) H Microbiology Microbiology Date/Time Source Procedure Growth Status 02/01/25 05:00 Catheter Tip Aerobic Culture - Final Complete 01/24/25 10:06 Bronchial Washings Gram Stain - Final Complete 01/24/25 10:06 Bronchial Washings Respiratory Culture - Final Complete 01/23/25 19:15 Blood Blood Culture - Final NO GROWTH AFTER 5 DAYS OF INCUBATION. Complete 01/10/25 09:18 Voided Urine Urine Culture - Final Presumptive Sully albicans Yeast, not Sully albicans Complete Labs and/or images reviewed: Labs reviewed by me, Image(s) reviewed by me Assessment/Plan Assessment/Plan Impression: -septic shock -right foot osteomyelitis -peripheral arterial disease -acute hypoxic respiratory failure -acute on chronic systolic and diastolic heart failure -end-stage renal disease with hemodialysis -diabetes mellitus Plan: Events: Patient converted to sinus rhythm. Now off of vasopressor therapy. Patient has also had sedation vacation. FiO2 at 35%, peep of five. Plans for hemodialysis today. Recommend CPAP trial once neurologically and hemodynamically appropriate. Continue amiodarone infusion until hemodialysis has completed -continue current ventilator settings. Wean FiO2 to keep saturation greater than 92% -pulmonology consultation: Recommendations reviewed. Assess appropriateness for weaning trial. If patient unsuccessful, we will recommend tracheostomy. -nephrology consultation: Recommendations reviewed. Plans for HD today -cardiology consultation: Recommendations reviewed -regular insulin sliding scale -repeat labs, ABG, and chest x-ray in a.m. -long discussion made with the patient's family yesterday afternoon regarding plan of care which includes possibility of tracheostomy and PEG tube placement. Code status continues to be full code at this time Critical care time spent with patient discussing and formulating plan of care: 90 minutes. This does not include time spent performing procedures. This medical document was created using an electronic medical record system with [email or web address] dictation system. Although this document has been carefully reviewed, there may still be some phonetic and typographical errors. These areas are purely typographical due to imperfections of the software programs, and do not reflect any compromise in the patient's medical care. Plan discussed with: Patient, Daughter, Other (RN) My Orders Orders - TERRY REDD NP Procedure Category Date Status Time Cpap Trial For Am ORDERS 02/07/25 Transmitted 07:41 Cpap/Sed Vacation Med ORDERS 02/07/25 Transmitted Weaning 07:41 Basic Metabolic Panel LAB 02/08/25 Verified 05:00 Basic Metabolic Panel LAB 02/09/25 Verified 05:00 Basic Metabolic Panel LAB 02/10/25 Verified 05:00 Chest Portable XY 02/08/25 Verified 05:00 Chest Portable XY 02/09/25 Verified 05:00 Chest Portable XY 02/10/25 Verified 05:00 Date of Service: Feb 07, 2025 Billing Provider: TERYR REDD NP Common Visit Codes: 88941-[id number] CARE 30-74 MIN, 05385-GBIIVGTH CARE-EACH +30MIN TERRY REDD NP Feb 07, 2025 09:17
--- NOTE | 2025-02-07 09:43 | DVHPN2 ---
Consult Progress Note Date Seen: Feb 07, 2025 Subjective Other Systems: No overnight cardiac events reported Objective vital signs Vital Sign Date Time Temp Pulse Resp B/P (MAP) Pulse Ox O2 Delivery O2 Flow Rate FiO2 02/07/25 09:11 63 24 132/55 (80) 98 30 02/07/25 06:00 Mechanical Ventilator+ 02/07/25 04:00 98.1 98.1 Total Intake and Output 02/06/25 02/06/25 02/07/25 15:00 23:00 07:00 Intake Total 259.196 ml 231.918 ml 661.527 ml Output Total 0 ml Balance 259.196 ml 231.918 ml 661.527 ml medications Current Medications Medications Dose Ordered Sig/Seth Route Start Time Stop Time Status Last Admin Dose Admin Acetaminophen 325 mg Q4HP PRN PO 01/10/25 00:30 01/22/25 00:29 325 MG Ondansetron HCl 4 mg Q4HP PRN IV 01/10/25 00:30 01/20/25 16:19 4 MG Atorvastatin Calcium 40 mg HS PO 01/10/25 22:00 02/06/25 22:04 40 MG Levothyroxine Sodium 125 mcg QAM@0600 PO 01/11/25 06:00 02/07/25 06:14 125 MCG Sodium Chloride 10 ml QSHIFT@10,22 IV 01/12/25 22:00 02/07/25 09:35 10 ML Dextrose 50 ml UD PRN IV 01/14/25 14:15 01/24/25 12:10 50 ML Fluconazole 100 mg POSTDI PRN PO 01/15/25 12:45 Cancel Albumin Human 100 ml @ 100 mls/hr WD PRN IV 01/18/25 21:00 02/03/25 11:36 100 MLS/HR Albuterol 2.5 mg Q4HPRN PRN NEB 01/20/25 16:00 02/04/25 05:45 2.5 MG Vancomycin HCl 0 ml @ 0 mls/hr PER PHARMACY IV 01/21/25 12:15 Cancel Fentanyl Citrate 250 ml @ 2.5 mls/hr Q24H IV 01/23/25 13:45 02/07/25 00:15 15 MLS/HR Enteral Nutritional Formula 1,000 ml 30ML/HR GT 01/23/25 18:00 01/26/25 23:26 1,000 ML Pantoprazole Sodium 40 mg BID IV 01/23/25 22:00 02/07/25 09:35 40 MG Sodium Chloride 1,000 ml @ 200 mls/hr Q5H IV 01/25/25 11:00 Cancel Amiodarone HCl 100 mg Q12HR PO 01/25/25 22:00 02/04/25 22:31 100 MG Midazolam HCl 100 ml @ 1 mls/hr Q24H IV 01/25/25 18:00 02/07/25 05:24 2 MLS/HR Diagnostic Test (Pha) 1 strip IQ4HR 01/28/25 12:00 02/07/25 07:59 1 STRIP Insulin Human Regular IQ4HR SC 01/28/25 12:00 02/07/25 08:01 3 UNITS Levalbuterol HCl 1.25 mg Q4HR NEB 02/02/25 14:30 02/07/25 09:11 1.25 MG Ipratropium [place] 0.5 mg Q4HR NEB 02/02/25 18:00 02/07/25 09:11 0.5 MG Heparin Sodium/ Dextrose 250 ml @ 6 mls/hr Q24H IV 02/03/25 14:00 Hold Enoxaparin Sodium 70 mg DAILY SC 02/04/25 15:30 02/07/25 09:36 70 MG Ertapenem 0.5 gm/ Sodium Chloride 50 ml @ 100 mls/hr DAILY@POSTDI IV 02/04/25 15:30 Norepinephrine Bitartrate 32 mg/ Sodium Chloride 250 ml @ 0.938 mls/ hr Q24H IV 02/05/25 10:00 02/05/25 10:17 1.875 MLS/HR Amiodarone HCl 250 ml @ 16.66 mls/ hr Q15H1M IV 02/05/25 16:15 02/06/25 22:17 16.66 MLS/HR Examination: GENERAL:Abnormal (Chronically ill), LUNGS:Abnormal (Endotracheally intubated), CVS:Abnormal (NSR. Off vasopressors), NEURO:Abnormal (Chemically sedated) laboratory and microbiology Laboratory Tests 02/07/25 02:40 Test 02/07/25 02:40 Range/Units Serum Glucose 169 H 74-106 mg/dL Problem List/Assessment/Plan Problem List/Assessment/Plan Non-sustained ventricular tachycardia Peripheral arterial disease status post CHIEF DESIGN DRAFTER f the right peroneal artery () Right lower extremity cellulitis/osteomyelitis Chronic HFrEF, NYHA class II Biventricular heart failure Presence of AICD ([place]) Pulmonary hypertension, severe Left upper extremity DVT Dyslipidemia Thyroid disease End-stage renal disease on hemodialysis Severe anemia/thrombocytopenia s/p transfusions Type 2 diabetes mellitus Obesity Plan/Recommendation (Dr. Sanchez) Recent transthoracic echocardiogram revealed LVEF 20% with global hypokinesis (see full dictated report). Continue amiodarone drip per pharmacy protocol and transition to amiodarone GT post HD. Continue electrolyte replenishment as necessary K>4 & Mg>2 and low-dose amiodarone GT (monitor LFTs). Continue vasopressor for hemodynamic support as necessary. Currently off DAPT with recent CHIEF DESIGN DRAFTER of the RLE which places the patient at high-risk for in-stent restenosis, consider reinitiation when appropriate. Continue lipid-lowering agent. Initiate GDMT for HFrEF when able to tolerate. On therapeutic Lovenox, monitor H&H and platelet count closely. Consider goals of care. Grave prognosis. Kindly call if in need of further recommendations. Thank you for allowing us to care for this patient. Critical care time: 30 min. This medical document was created using an electronic medical record system with voice recognition software and computerized dictation system. Although this document has been carefully reviewed, there might still be some phonetic and typographical errors. Occasional wrong-word or ``sound-alike substitutions may have occurred due to the inherent limitations of voice recognition software. These areas are purely typographical due to imperfections of the software programs and do not reflect any compromise in the patient's medical care. Please read the chart carefully and recognize, using context, where these substitutions have occurred. Plan discussed with: Other Dietary Evaluation Review Comments: Nutrition Recommendation 1) CCHO 60gm + renal standard diet 2) Nephro-santosh 1 tab daily 3) Lexx 1 pk daily 4) Monitor PO intake, lab values, weight trend, and I/O Expected Outcomes/Goals: To meet >75% estimated needs Wound to improve Fu 3-5 days CC Plasma Assessment Blood Product Administration S: [id number] Date of Service: Feb 07, 2025 Billing Provider: LOBATO,RENÉE PODIATRY PROFESSOR Cardiology Common Codes: 42107-UJAEGARS CARE 30-74 MIN RENEÉ LOBATO PODIATRY PROFESSOR Feb 07, 2025 09:43
[2025-02-07] MEDS: ALBUMIN 25% 100 ML IV SCH (11:00)
--- NOTE | 2025-02-07 11:08 | DVHPN2 ---
Progress Note - Dictate Date Seen: Feb 07, 2025 Medical Necessity Reason Pt with a Central, PICC or Fol: Yes The following are medically ne: Central Line, [place] Catheter Subjective Undergoing hemodialysis. vital signs Vital Sign Date Time Temp Pulse Resp B/P (MAP) Pulse Ox O2 Delivery O2 Flow Rate FiO2 02/07/25 11:05 87 24 193/87 (122) 98 30 02/07/25 08:00 97.2 97.2 02/07/25 06:00 Mechanical Ventilator+ Total Intake and Output 02/06/25 02/06/25 02/07/25 15:00 23:00 07:00 Intake Total 259.196 ml 231.918 ml 661.527 ml Output Total 0 ml Balance 259.196 ml 231.918 ml 661.527 ml medications Current Medications Medications Dose Ordered Sig/Seth Route Start Time Stop Time Status Last Admin Dose Admin Acetaminophen 325 mg Q4HP PRN PO 01/10/25 00:30 01/22/25 00:29 325 MG Ondansetron HCl 4 mg Q4HP PRN IV 01/10/25 00:30 01/20/25 16:19 4 MG Atorvastatin Calcium 40 mg HS PO 01/10/25 22:00 02/06/25 22:04 40 MG Levothyroxine Sodium 125 mcg QAM@0600 PO 01/11/25 06:00 02/07/25 06:14 125 MCG Sodium Chloride 10 ml QSHIFT@10,22 IV 01/12/25 22:00 02/07/25 09:35 10 ML Dextrose 50 ml UD PRN IV 01/14/25 14:15 01/24/25 12:10 50 ML Fluconazole 100 mg POSTDI PRN PO 01/15/25 12:45 Cancel Albumin Human 100 ml @ 100 mls/hr WD PRN IV 01/18/25 21:00 02/03/25 11:36 100 MLS/HR Albuterol 2.5 mg Q4HPRN PRN NEB 01/20/25 16:00 02/04/25 05:45 2.5 MG Vancomycin HCl 0 ml @ 0 mls/hr PER PHARMACY IV 01/21/25 12:15 Cancel Fentanyl Citrate 250 ml @ 2.5 mls/hr Q24H IV 01/23/25 13:45 02/07/25 00:15 15 MLS/HR Enteral Nutritional Formula 1,000 ml 30ML/HR GT 01/23/25 18:00 01/26/25 23:26 1,000 ML Pantoprazole Sodium 40 mg BID IV 01/23/25 22:00 02/07/25 09:35 40 MG Sodium Chloride 1,000 ml @ 200 mls/hr Q5H IV 01/25/25 11:00 Cancel Amiodarone HCl 100 mg Q12HR PO 01/25/25 22:00 02/04/25 22:31 100 MG Midazolam HCl 100 ml @ 1 mls/hr Q24H IV 01/25/25 18:00 02/07/25 05:24 2 MLS/HR Diagnostic Test (Pha) 1 strip IQ4HR 01/28/25 12:00 02/07/25 07:59 1 STRIP Insulin Human Regular IQ4HR SC 01/28/25 12:00 02/07/25 08:01 3 UNITS Levalbuterol HCl 1.25 mg Q4HR NEB 02/02/25 14:30 02/07/25 09:11 1.25 MG Ipratropium [place] 0.5 mg Q4HR NEB 02/02/25 18:00 02/07/25 09:11 0.5 MG Heparin Sodium/ Dextrose 250 ml @ 6 mls/hr Q24H IV 02/03/25 14:00 Hold Enoxaparin Sodium 70 mg DAILY SC 02/04/25 15:30 02/07/25 09:36 70 MG Ertapenem 0.5 gm/ Sodium Chloride 50 ml @ 100 mls/hr DAILY@POSTDI IV 02/04/25 15:30 Norepinephrine Bitartrate 32 mg/ Sodium Chloride 250 ml @ 0.938 mls/ hr Q24H IV 02/05/25 10:00 02/05/25 10:17 1.875 MLS/HR Amiodarone HCl 250 ml @ 16.66 mls/ hr Q15H1M IV 02/05/25 16:15 02/06/25 22:17 16.66 MLS/HR Metoclopramide HCl 10 mg Q8HR GT 02/07/25 14:00 Albumin Human 100 ml @ 100 mls/hr Q1HR IV 02/07/25 11:00 02/07/25 12:59 UNV objective intubated and sedated Pulmonary: Diminished breath sounds at bases Cardiovascular S1-S2, no S3 or S4 Abdomen: Bowel sounds positive, soft no rebound tenderness Neurological: intubated and sedated Extremities: Right foot gangrenous laboratory and microbiology Laboratory Tests 02/07/25 02:40 Test 02/07/25 02:40 Range/Units Serum Glucose 169 H 74-106 mg/dL Problem List ESRD on HD Acute hypoxic respiratory failure Shock secondary to sepsis Right foot osteomyelitis Pneumonia DM hypothyroidism Leukocytosis Anemia Hyperphosphatemia Secondary hyperparathyroidism Thrombocytopenia Assessment/Plan Patient was being dialyzed today vent management as per pulmonary continue IV abx . Prognosis guarded Dietary Evaluation Review Comments: Nutrition Recommendation 1) CCHO 60gm + renal standard diet 2) Nephro-santosh 1 tab daily 3) Lexx 1 pk daily 4) Monitor PO intake, lab values, weight trend, and I/O Expected Outcomes/Goals: To meet >75% estimated needs Wound to improve Fu 3-5 days Plan discussed with: Other CC Plasma Assessment Blood Product Administration S: [id number] RENETTA LORENZ MD Feb 07, 2025 11:08
[2025-02-07] MEDS: SODIUM CHL 0.9% 1000 ML BAG XX ONE (11:19)
[2025-02-07] MEDS: ALBUMIN 25% 200 ML IV ONE (11:20)
--- NOTE | 2025-02-07 14:19 | DVHPN2 ---
Progress Note Date Seen: Feb 07, 2025 Resident Creating Document: JHMERLY VIZCARRA RESIDENT Medical Necessity Reason Pt with a Central, PICC or Fol: Yes The following are medically ne: Central Line, [place] Catheter Subjective Review of Systems Patient seen and examined with the bedside On minimal ventilator settings and vasopressor requirements decreased further In the morning gastric residual volume around 650 mL Tube feedings held and the patient is started on metoclopramide Planned for CPAP trial today H&H is stable and improving Objective vital signs Vital Sign Date Time Temp Pulse Resp B/P (MAP) Pulse Ox O2 Delivery O2 Flow Rate FiO2 02/07/25 13:04 72 24 138/59 (85) 100 30 02/07/25 10:00 Mechanical Ventilator+ 02/07/25 08:00 97.2 97.2 Total Intake and Output 02/06/25 02/06/25 02/07/25 15:00 23:00 07:00 Intake Total 259.196 ml 231.918 ml 661.527 ml Output Total 0 ml Balance 259.196 ml 231.918 ml 661.527 ml medications Current Medications Medications Dose Ordered Sig/Seth Route Start Time Stop Time Status Last Admin Dose Admin Acetaminophen 325 mg Q4HP PRN PO 01/10/25 00:30 01/22/25 00:29 325 MG Ondansetron HCl 4 mg Q4HP PRN IV 01/10/25 00:30 01/20/25 16:19 4 MG Atorvastatin Calcium 40 mg HS PO 01/10/25 22:00 02/06/25 22:04 40 MG Levothyroxine Sodium 125 mcg QAM@0600 PO 01/11/25 06:00 02/07/25 06:14 125 MCG Sodium Chloride 10 ml QSHIFT@ IV 01/12/25 22:00 02/07/25 09:35 10 ML Dextrose 50 ml UD PRN IV 01/14/25 14:15 01/24/25 12:10 50 ML Fluconazole 100 mg POSTDI PRN PO 01/15/25 12:45 Cancel Albumin Human 100 ml @ 100 mls/hr WD PRN IV 01/18/25 21:00 02/03/25 11:36 100 MLS/HR Albuterol 2.5 mg Q4HPRN PRN NEB 01/20/25 16:00 02/04/25 05:45 2.5 MG Vancomycin HCl 0 ml @ 0 mls/hr PER PHARMACY IV 01/21/25 12:15 Cancel Fentanyl Citrate 250 ml @ 2.5 mls/hr Q24H IV 01/23/25 13:45 02/07/25 00:15 15 MLS/HR Enteral Nutritional Formula 1,000 ml 30ML/HR GT 01/23/25 18:00 01/26/25 23:26 1,000 ML Pantoprazole Sodium 40 mg BID IV 01/23/25 22:00 02/07/25 09:35 40 MG Sodium Chloride 1,000 ml @ 200 mls/hr Q5H IV 01/25/25 11:00 Cancel Amiodarone HCl 100 mg Q12HR PO 01/25/25 22:00 02/04/25 22:31 100 MG Midazolam HCl 100 ml @ 1 mls/hr Q24H IV 01/25/25 18:00 02/07/25 05:24 2 MLS/HR Diagnostic Test (Pha) 1 strip IQ4HR 01/28/25 12:00 02/07/25 12:47 1 STRIP Insulin Human Regular IQ4HR SC 01/28/25 12:00 02/07/25 08:01 3 UNITS Levalbuterol HCl 1.25 mg Q4HR NEB 02/02/25 14:30 02/07/25 13:04 1.25 MG Ipratropium [place] 0.5 mg Q4HR NEB 02/02/25 18:00 02/07/25 13:04 0.5 MG Heparin Sodium/ Dextrose 250 ml @ 6 mls/hr Q24H IV 02/03/25 14:00 Hold Enoxaparin Sodium 70 mg DAILY SC 02/04/25 15:30 02/07/25 09:36 70 MG Norepinephrine Bitartrate 32 mg/ Sodium Chloride 250 ml @ 0.938 mls/ hr Q24H IV 02/05/25 10:00 02/05/25 10:17 1.875 MLS/HR Amiodarone HCl 250 ml @ 16.66 mls/ hr Q15H1M IV 02/05/25 16:15 02/06/25 22:17 16.66 MLS/HR Metoclopramide HCl 10 mg Q8HR GT 02/07/25 14:00 Ertapenem 0.5 gm/ Sodium Chloride 50 ml @ 100 mls/hr HS IV 02/07/25 22:00 Examination Gen - no pallor, no scleral icterus Skin - Patients skin is warm and dry. HEENT - normocephalic, atraumatic, dry mucous membranes. Neck - supple, no lymphadenopathy Pulmonary - improved breath sounds bilaterally cardiovascular - regular S1,S2 heard GI - soft abdomen. Bowel sounds hypoactive. Neurological - sedated and on mechanical ventilation laboratory and microbiology Laboratory Tests 02/07/25 02:40 Test 02/07/25 02:40 Range/Units Serum Glucose 169 H 74-106 mg/dL Microbiology Date/Time Source Procedure Growth Status 02/06/25 09:05 Blood Blood Culture - Preliminary NO GROWTH AFTER 24 HOURS OF INCUBATION. Resulted 02/01/25 05:00 Catheter Tip Aerobic Culture - Final Complete 01/24/25 10:06 Bronchial Washings Gram Stain - Final Complete 01/24/25 10:06 Bronchial Washings Respiratory Culture - Final Complete 01/10/25 09:18 Voided Urine Urine Culture - Final Presumptive Sully albicans Yeast, not Sully albicans Complete Problem List/Assessment/Plan Problem List/Assessment/Plan Assessment Possible GI bleed Sepsis likely from osteomyelitis Acute on chronic systolic heart failure Thrombocytopenia Coagulopathy PAT on CKD likely due to VMN Left upper extremity DVT Cardiopulmonary arrest s/p ROSC Plan - Protonix 40 mg IV b.i.d. - once the patient is hemodynamically stable, she may benefit from EGD - watch H&H - on tube feeding, increased residual volumes, started on metoclopramide 10 mg q.8 hours - on therapeutic Lovenox because of atrial fibrillation, increased risk of GI bleeding Poor prognosis Plan discussed with Dr. Soto Plan discussed with: Other (ALBERTINA [place]/Atif) Dietary Evaluation Review Comments: Nutrition Recommendation 1) CCHO 60gm + renal standard diet 2) Nephro-santosh 1 tab daily 3) Lexx 1 pk daily 4) Monitor PO intake, lab values, weight trend, and I/O Expected Outcomes/Goals: To meet >75% estimated needs Wound to improve Fu 3-5 days CC Plasma Assessment Blood Product Administration S: [id number] MERLY THAKUR RESIDENT Feb 07, 2025 14:19
[2025-02-07 15:08] LABS: Base Excess 0.2 mmol/L (-2.0-3.0)
[2025-02-07] MEDS: METOCLOPRAMIDE 10 mg/10ml ORAL soln GT SCH (15:21)
[2025-02-07] MEDS: AMIODARONE HCL 200 MG TAB PO ONE (15:21)
--- NOTE | 2025-02-07 20:09 | DVHPN2 ---
[facility] DOS: 02/07/2025 Patient seen and examined at bedside. Sedated, intubated on mechanical ventilator. Overnight events reviewed. Reviewed: Care Plan, H&P Changes from previous H/P or p: No Changes General: Per HPI Objective Vitals Vital Signs Date Time Temp Pulse Resp B/P (MAP) Pulse Ox O2 Delivery O2 Flow Rate FiO2 02/07/25 19:49 83 24 96 Mechanical Ventilator+ 60 60 02/07/25 19:21 167/66 (99) 02/07/25 16:00 97.3 97.3 Intake/Output Intake and Output 02/07/25 07:00 Intake Total 1187.239 ml Output Total 0 ml Balance 1187.239 ml Intake Oral 60 ml IV Total 767.239 ml Blood Product 360 ml Output Urine Total 0 ml Stool Total 0 ml Exam Gen.: Patient lying in bed in medical ICU. Sedated, intubated on mechanical ventilator. Head: Normocephalic, atraumatic. Eyes: PERRLA. Ears: Normal external anatomy. Throat: Endotracheal tube and orogastric tube in place. Neck: Supple, trachea midline. Chest: Transmitted breath sounds bilaterally. Decreased air entry bilaterally. No wheezing. Bibasilar crackles. Cardiovascular: Positive S1, positive S2. Regular rate and rhythm. Abdomen: Positive bowel sounds in all 4 quadrants. Soft, nontender, nondistended. : Lofton in place. Normal external genitalia. Rectal: Deferred. Skin: Warm, dry. Right foot osteomyelitis. Extremities: 2+ radial pulses bilaterally. No lower extremity edema. Neuro: Sedated General Appearance: mild distress, Other (Intubated and sedated) HEENT: Atraumatic, PERRLA Lungs: Clear to auscultation, Other (Mechanical ventilation.) Cardiovascular: Normal S1, Normal S2, Other (Patient now in sinus rhythm, heart rate 65) Abdomen: Normal bowel sounds, Soft, No tenderness, No hepatospenomegaly Musculoskeletal: Other (Unable to assess) Extremities: No clubbing, No cyanosis, No edema, Normal pulses, No tenderness/swelling Neuro: Other (Unable to assess) Skin: Dry, Intact, Wounds (See nurse notes and pictures), Other (Right foot necrosis) Psych/Mental Status: Other (Unable to assess) Medications Current Medications Medications Dose Ordered Sig/Seth Route Start Time Stop Time Status Last Admin Dose Admin Acetaminophen 325 mg Q4HP PRN PO 01/10/25 00:30 01/22/25 00:29 325 MG Ondansetron HCl 4 mg Q4HP PRN IV 01/10/25 00:30 01/20/25 16:19 4 MG Atorvastatin Calcium 40 mg HS PO 01/10/25 22:00 02/06/25 22:04 40 MG Levothyroxine Sodium 125 mcg QAM@0600 PO 01/11/25 06:00 02/07/25 06:14 125 MCG Sodium Chloride 10 ml QSHIFT@ IV 01/12/25 22:00 02/07/25 09:35 10 ML Dextrose 50 ml UD PRN IV 01/14/25 14:15 01/24/25 12:10 50 ML Fluconazole 100 mg POSTDI PRN PO 01/15/25 12:45 Cancel Albumin Human 100 ml @ 100 mls/hr WD PRN IV 01/18/25 21:00 02/03/25 11:36 100 MLS/HR Albuterol 2.5 mg Q4HPRN PRN NEB 01/20/25 16:00 02/04/25 05:45 2.5 MG Vancomycin HCl 0 ml @ 0 mls/hr PER PHARMACY IV 01/21/25 12:15 Cancel Fentanyl Citrate 250 ml @ 2.5 mls/hr Q24H IV 01/23/25 13:45 02/07/25 18:05 2.5 MLS/HR Enteral Nutritional Formula 1,000 ml 30ML/HR GT 01/23/25 18:00 01/26/25 23:26 1,000 ML Pantoprazole Sodium 40 mg BID IV 01/23/25 22:00 02/07/25 09:35 40 MG Sodium Chloride 1,000 ml @ 200 mls/hr Q5H IV 01/25/25 11:00 Cancel Amiodarone HCl 100 mg Q12HR PO 01/25/25 22:00 02/04/25 22:31 100 MG Midazolam HCl 100 ml @ 1 mls/hr Q24H IV 01/25/25 18:00 02/07/25 05:24 2 MLS/HR Diagnostic Test (Pha) 1 strip IQ4HR 01/28/25 12:00 02/07/25 16:32 1 STRIP Insulin Human Regular IQ4HR SC 01/28/25 12:00 02/07/25 08:01 3 UNITS Levalbuterol HCl 1.25 mg Q4HR NEB 02/02/25 14:30 02/07/25 17:16 1.25 MG Ipratropium [place] 0.5 mg Q4HR NEB 02/02/25 18:00 02/07/25 17:16 0.5 MG Heparin Sodium/ Dextrose 250 ml @ 6 mls/hr Q24H IV 02/03/25 14:00 Hold Enoxaparin Sodium 70 mg DAILY SC 02/04/25 15:30 02/07/25 09:36 70 MG Norepinephrine Bitartrate 32 mg/ Sodium Chloride 250 ml @ 0.938 mls/ hr Q24H IV 02/05/25 10:00 02/05/25 10:17 1.875 MLS/HR Amiodarone HCl 250 ml @ 16.66 mls/ hr Q15H1M IV 02/05/25 16:15 02/06/25 22:17 16.66 MLS/HR Metoclopramide HCl 10 mg Q8HR GT 02/07/25 14:00 02/07/25 15:21 10 MG Ertapenem 0.5 gm/ Sodium Chloride 50 ml @ 100 mls/hr HS IV 02/07/25 22:00 Hydralazine HCl 10 mg Q6HP PRN IV 02/07/25 18:15 Laboratory Results Laboratory Tests 02/07/25 02:40 Chemistry Test 02/07/25 02:40 Calcium Level 8.8 mg/dL (8.7-10.4) Magnesium Level 2.5 mg/dL (1.6-2.6) Urinalysis Test 01/10/25 09:18 Urine Color Yellow (Yellow) Urine Clarity Turbid (Clear) H Urine pH 6.5 (5.0-9.0) Urine Specific [place] 1.019 (1.001-1.035) Urine Protein 2+ (Negative) H Urine Ketones Negative (Negative) Urine Blood Negative /uL (Negative) Urine Nitrite Negative (Negative) Urine Bilirubin Negative (Negative) Urine Urobilinogen Normal mg/dL (Negative) Urine Leukocyte Esterase Trace /uL (Negative) Urine RBC 7 /hpf (0 - 4) Urine Microscopic WBC 4 /HPF (0-5) Urine Squamous Epithelial Cells Few /hpf (<5) Urine Bacteria None seen /hpf (None Seen) Urine Yeast (Budding) Moderate /hpf (None Seen) Urine Glucose 1+ mg/dL (Normal) H Blood Gas Results Test 02/07/25 15:01 Arterial Blood pH 7.403 (7.350-7.450) FiO2 % 30.0 Microbiology Microbiology Date/Time Source Procedure Growth Status 02/06/25 09:05 Blood Blood Culture - Preliminary NO GROWTH AFTER 24 HOURS OF INCUBATION. Resulted 02/01/25 05:00 Catheter Tip Aerobic Culture - Final Complete 01/24/25 10:06 Bronchial Washings Gram Stain - Final Complete 01/24/25 10:06 Bronchial Washings Respiratory Culture - Final Complete 01/10/25 09:18 Voided Urine Urine Culture - Final Presumptive Sully albicans Yeast, not Sully albicans Complete Assessment/Plan Assessment/Plan Impression: Acute hypoxic respiratory failure On mechanical ventilator Acute CHF exacerbation End-stage renal disease, on hemodialysis Osteomyelitis DVT, left upper extremity Overweight Events: Remains on vent support On AC mode; RR 24, VT 400, PEEP 5, FiO2 30% Improved FIO2 requirements Patient noted to desaturate with turns. Sedated on Versed 1 mg/hr Fentanyl 75 mcg.drip for analgesia, ABG reviewed, compensated. CXR today shows devices in place; stable extensive patchy multifocal bilateral pulmonary airspace disease with consolidative features. Cardiomegaly. Hemodialysis per Nephrology - 2 liters removed today. Monitor for blood pressure drops during hemodialysis. Digoxin load. Continue amiodarone drip for atrial fibrillation with rapid ventricular response - tapered to 0.5 mg/min Off Levophed, monitor hemodynamics Blood pressure remains labile. Follow up Cardiology recs. Of note, patient had a cardiopulmonary arrest on 02/02/25 for 1 minute, ROSC achieved. Heparin drip due to left upper extremity DVT - currently on hold. Monitor hemoglobin - currently stable. Transfuse if less than 7.0 g/dL. On Lovenox SC. Continue bronchodilators. Continue antibiotics. Continue IV stress dose steroids, q.8 hours Hemodialysis per Nephrology Follow up Nephrology recommendations Monitor renal function Monitor electrolytes. Supplement as necessary. Accu-Cheks, ISS. Tube feeds for nutritional support DTI sacrum - wound care. CPAP daily if appropriate, as tolerated. Note, patient with overall poor prognosis High likelihood of demise. Left upper extremity venous duplex revealed DVT in left axillary and brachial veins. Labs and imaging reviewed. Rest of plan as noted below. Plan: s/p intubation on mechanical ventilator. On AC mode; RR 24, VT 400, PEEP 5, FiO2 30% S/p bronchoscopy on 11/24/24 - Results from bronchial washings show no growth. Titrate FIO2 to keep O2 saturation above 90%. VAP bundle. Daily ABG and CXR while intubated Continue bronchodilators. Continue antibiotics. Follow up cultures. IV steroids Pressors for hemodynamic support Titrate to keep MAP above 65 mmHg/SBP above 90 mmHg. Accu-Cheks, ISS Wound care. Monitor H&H. Hemodialysis per Nephrology Monitor renal function Monitor electrolytes. Supplement as necessary. Monitor ins and outs. Maintain euvolemia. GI prophylaxis. DVT prophylaxis. Prognosis: Poor given patient's multiple co-morbidities. Condition: Critical Rest of plan per hospitalist and other consultants. A total of 35 minutes of critical care time was spent reviewing the patient record, examining the patient, making a diagnostic and therapeutic plan, discussing this plan with the medical personnel, following up on diagnostic studies and following the patient for clinical stability excluding any and all procedures. At least 50% of this time was spent in direct, [id number] contact. Thank you, Dr. Bowie, for allowing me to participate in this patient's care. Further recommendations will depend on the patient's clinical course. Please do not hesitate to contact me if you have any questions or concerns. This medical document was created using an electronic medical record system with [employer] dictation system. Although these documentations are being carefully reviewed, there may still be some phonetic and typographical changes. The errors are purely typographical, due to imperfection on the software program, and do not reflect any compromise in the patient's medical care. Plan discussed with: Other (RN) My Orders Orders - ALCON GUTHRIE MD Procedure Category Date Status Time Hydralazine Injection PHA 02/07/25 In Process (Apresoline Inject 18:15 Visit Coding Pulmonary Billing Provider: ALCON GUTHRIE MD Date of Service if different f: Feb 07, 2025 Common Visit Codes: [id number] INP/OBS CARE(HIGH), [id number] CARE 30-74 MIN ALCON GUTHRIE MD Feb 07, 2025 20:09
[2025-02-07] MEDS: ERTAPENEM SOD INJ 0.5 GM in SODIUM CHL 0.9% 50 ML IV SCH (21:07)
[2025-02-07] MEDS: EPOETIN ALFA-EPBX 4,000 UNIT/ML VIAL SC ONE (21:41)
[2025-02-07] MEDS: hydrALAZINE HCL 20 MG/ML VL IV PRN (23:32)
[2025-02-08] VITALS (89 sets, daily range): BP systolic 70–192; BP diastolic 17–64; PULSE 75–109; RESP 12–33; TEMP 97.4–101.3; O2SAT 64–100
[2025-02-08 03:03] LABS: Chloride 105 mmol/L (98-107); Sodium 145 mmol/L (136-145)
[2025-02-08 03:04] LABS: Anion Gap 14 (5-15); Calcium 8.9 mg/dL (8.7-10.4); Carbon Dioxide 26 mmol/L (20-31)
[2025-02-08 03:09] LABS: BUN/Creatinine Ratio 12.3 (10.0-20.0); Glucose 82 mg/dL (74-106)
[2025-02-08 03:10] LABS: Blood Urea Nitrogen 38 mg/dL (9-23); Potassium 3.1 mmol/L (3.5-5.1)
[2025-02-08 03:19] LABS: Hematocrit 28.8 % (36.0-46.0); Hemoglobin 9.7 g/dL (12.2-16.2); Mean Corpuscular Hemoglobin 31.5 pg (28.0-32.0); Mean Corpuscular Volume 93.4 fL (80.0-100.0); Nucleated Red Blood Cells % 0.5 %
[2025-02-08] MEDS: POTASSIUM CHL 20MEQ/100ML 100 ML IV ONE (04:49)
--- NOTE | 2025-02-08 06:03 | DVH ---
CHEST RADIOGRAPH Indication: Pneumonia. Technique: Single frontal view of the chest was obtained Comparison: XY CHEST PORTABLE on DOS: 02/07/25 FINDINGS: Lines and Tubes: The endotracheal tube terminates 3.8 cm above the rod. AICD/pacemaker is noted. The enteric tube courses below the left hemidiaphragm and the tip extends outside the field of view. Lungs: Patchy bilateral opacities are noted. Pleura: There is a left pleural effusion. No pneumothorax. Cardiomediastinal contours: Stable cardiovascular silhouette. Bones: No acute osseous abnormality. IMPRESSION: 1. Patchy bilateral airspace opacities which may reflect pneumonia.
[2025-02-08 06:45] LABS: Base Excess -0.2 mmol/L (-2.0-3.0)
--- NOTE | 2025-02-08 11:45 | DVHPN2 ---
Progress Note Date Seen: Feb 08, 2025 Resident Creating Document: MERLY THAKUR RESIDENT Medical Necessity Reason Pt with a Central, PICC or Fol: Yes The following are medically ne: Central Line, [place] Catheter Subjective Review of Systems Patient seen and examined with the bedside Increased oxygenation requirement currently FiO2 of 70% No new bowel movements reported in the rectal tube H&H stable Objective vital signs Vital Sign Date Time Temp Pulse Resp B/P (MAP) Pulse Ox O2 Delivery O2 Flow Rate FiO2 02/08/25 11:22 102 24 105/43 (63) 99 70 02/08/25 10:00 Mechanical Ventilator+ 02/08/25 08:00 98.0 98.0 Total Intake and Output 02/07/25 02/07/25 02/08/25 15:00 23:00 07:00 Intake Total 209.712 ml 121.0 ml 187.5 ml Output Total 0 ml Balance 209.712 ml 121.0 ml 187.5 ml medications Current Medications Medications Dose Ordered Sig/Seth Route Start Time Stop Time Status Last Admin Dose Admin Acetaminophen 325 mg Q4HP PRN PO 01/10/25 00:30 01/22/25 00:29 325 MG Ondansetron HCl 4 mg Q4HP PRN IV 01/10/25 00:30 01/20/25 16:19 4 MG Atorvastatin Calcium 40 mg HS PO 01/10/25 22:00 02/07/25 20:49 40 MG Levothyroxine Sodium 125 mcg QAM@0600 PO 01/11/25 06:00 02/08/25 04:48 125 MCG Sodium Chloride 10 ml QSHIFT@10,22 IV 01/12/25 22:00 02/08/25 09:40 10 ML Dextrose 50 ml UD PRN IV 01/14/25 14:15 02/07/25 21:05 50 ML Fluconazole 100 mg POSTDI PRN PO 01/15/25 12:45 Cancel Albumin Human 100 ml @ 100 mls/hr WD PRN IV 01/18/25 21:00 02/03/25 11:36 100 MLS/HR Albuterol 2.5 mg Q4HPRN PRN NEB 01/20/25 16:00 02/04/25 05:45 2.5 MG Vancomycin HCl 0 ml @ 0 mls/hr PER PHARMACY IV 01/21/25 12:15 Cancel Fentanyl Citrate 250 ml @ 2.5 mls/hr Q24H IV 01/23/25 13:45 02/07/25 18:05 2.5 MLS/HR Enteral Nutritional Formula 1,000 ml 30ML/HR GT 01/23/25 18:00 01/26/25 23:26 1,000 ML Pantoprazole Sodium 40 mg BID IV 01/23/25 22:00 02/08/25 09:40 40 MG Sodium Chloride 1,000 ml @ 200 mls/hr Q5H IV 01/25/25 11:00 Cancel Amiodarone HCl 100 mg Q12HR PO 01/25/25 22:00 02/08/25 09:40 100 MG Midazolam HCl 100 ml @ 1 mls/hr Q24H IV 01/25/25 18:00 02/07/25 05:24 2 MLS/HR Diagnostic Test (Pha) 1 strip IQ4HR 01/28/25 12:00 02/08/25 09:32 1 STRIP Insulin Human Regular IQ4HR SC 01/28/25 12:00 02/07/25 08:01 3 UNITS Levalbuterol HCl 1.25 mg Q4HR NEB 02/02/25 14:30 02/08/25 09:17 1.25 MG Ipratropium [place] 0.5 mg Q4HR NEB 02/02/25 18:00 02/08/25 09:17 0.5 MG Heparin Sodium/ Dextrose 250 ml @ 6 mls/hr Q24H IV 02/03/25 14:00 Hold Enoxaparin Sodium 70 mg DAILY SC 02/04/25 15:30 02/07/25 09:36 70 MG Norepinephrine Bitartrate 32 mg/ Sodium Chloride 250 ml @ 0.938 mls/ hr Q24H IV 02/05/25 10:00 02/08/25 07:23 0.469 MLS/HR Amiodarone HCl 250 ml @ 16.66 mls/ hr Q15H1M IV 02/05/25 16:15 02/06/25 22:17 16.66 MLS/HR Metoclopramide HCl 10 mg Q8HR GT 02/07/25 14:00 02/08/25 04:52 10 MG Ertapenem 0.5 gm/ Sodium Chloride 50 ml @ 100 mls/hr HS IV 02/07/25 22:00 02/07/25 21:07 100 MLS/HR Hydralazine HCl 10 mg Q6HP PRN IV 02/07/25 18:15 02/07/25 23:32 10 MG Examination Gen - no pallor, no scleral icterus Skin - Patients skin is warm and dry. HEENT - normocephalic, atraumatic, dry mucous membranes. Neck - supple, no lymphadenopathy Pulmonary - improved breath sounds bilaterally cardiovascular - regular S1,S2 heard GI - soft abdomen. Bowel sounds hypoactive. Neurological - sedated and on mechanical ventilation laboratory and microbiology Laboratory Tests 02/08/25 02:40 Test 02/08/25 02:40 Range/Units Serum Glucose 82 74-106 mg/dL Microbiology Date/Time Source Procedure Growth Status 02/06/25 09:05 Blood Blood Culture - Preliminary NO GROWTH AFTER 48 HOURS OF INCUBATION. Resulted 02/01/25 05:00 Catheter Tip Aerobic Culture - Final Complete 01/24/25 10:06 Bronchial Washings Gram Stain - Final Complete 01/24/25 10:06 Bronchial Washings Respiratory Culture - Final Complete 01/10/25 09:18 Voided Urine Urine Culture - Final Presumptive Sully albicans Yeast, not Sully albicans Complete Problem List/Assessment/Plan Problem List/Assessment/Plan Assessment Possible GI bleed Sepsis likely from osteomyelitis Acute on chronic systolic heart failure Thrombocytopenia Coagulopathy PAT on CKD likely due to VMN Left upper extremity DVT Cardiopulmonary arrest s/p ROSC Plan - Protonix 40 mg IV b.i.d. - once the patient is hemodynamically stable, she may benefit from EGD - watch H&H - on tube feeding, increased residual volumes, on metoclopramide 10 mg q.8 hours - on therapeutic Lovenox because of atrial fibrillation, increased risk of GI bleeding Poor prognosis Plan discussed with Dr. Soto Plan discussed with: Other (ALBERTINA Srivastava) Dietary Evaluation Review Comments: Nutrition Recommendation 1) CCHO 60gm + renal standard diet 2) Nephro-santosh 1 tab daily 3) Lexx 1 pk daily 4) Monitor PO intake, lab values, weight trend, and I/O Expected Outcomes/Goals: To meet >75% estimated needs Wound to improve Fu 3-5 days CC Plasma Assessment Blood Product Administration S: [id number] MERLY THAKUR RESIDENT Feb 08, 2025 11:45
--- NOTE | 2025-02-08 12:43 | DVHPN2 ---
Reviewed: Care Plan, H&P Changes from previous H/P or p: No Changes General: Per HPI Objective Vitals Vital Signs Date Time Temp Pulse Resp B/P (MAP) Pulse Ox O2 Delivery O2 Flow Rate FiO2 02/08/25 11:22 102 24 105/43 (63) 99 70 02/08/25 10:00 Mechanical Ventilator+ 02/08/25 08:00 98.0 98.0 Intake/Output Intake and Output 02/08/25 07:00 Intake Total 518.212 ml Output Total 0 ml Balance 518.212 ml Intake Oral 120 ml IV Total 398.212 ml Output Urine Total 0 ml General Appearance: mild distress, Other (Intubated and sedated) HEENT: Atraumatic, PERRLA Lungs: Clear to auscultation, Other (Mechanical ventilation.) Cardiovascular: Normal S1, Normal S2, Other (Patient now in sinus rhythm, heart rate 65) Abdomen: Normal bowel sounds, Soft, No tenderness, No hepatospenomegaly Musculoskeletal: Other (Unable to assess) Extremities: No clubbing, No cyanosis, No edema, Normal pulses, No tenderness/swelling Neuro: Other (Unable to assess) Skin: Dry, Intact, Wounds (See nurse notes and pictures), Other (Right foot necrosis) Psych/Mental Status: Other (Unable to assess) Medications Current Medications Medications Dose Ordered Sig/Seth Route Start Time Stop Time Status Last Admin Dose Admin Acetaminophen 325 mg Q4HP PRN PO 01/10/25 00:30 01/22/25 00:29 325 MG Ondansetron HCl 4 mg Q4HP PRN IV 01/10/25 00:30 01/20/25 16:19 4 MG Atorvastatin Calcium 40 mg HS PO 01/10/25 22:00 02/07/25 20:49 40 MG Levothyroxine Sodium 125 mcg QAM@0600 PO 01/11/25 06:00 02/08/25 04:48 125 MCG Sodium Chloride 10 ml QSHIFT@ IV 01/12/25 22:00 02/08/25 09:40 10 ML Dextrose 50 ml UD PRN IV 01/14/25 14:15 02/07/25 21:05 50 ML Fluconazole 100 mg POSTDI PRN PO 01/15/25 12:45 Cancel Albumin Human 100 ml @ 100 mls/hr WD PRN IV 01/18/25 21:00 02/03/25 11:36 100 MLS/HR Albuterol 2.5 mg Q4HPRN PRN NEB 01/20/25 16:00 02/04/25 05:45 2.5 MG Vancomycin HCl 0 ml @ 0 mls/hr PER PHARMACY IV 01/21/25 12:15 Cancel Fentanyl Citrate 250 ml @ 2.5 mls/hr Q24H IV 01/23/25 13:45 02/07/25 18:05 2.5 MLS/HR Enteral Nutritional Formula 1,000 ml 30ML/HR GT 01/23/25 18:00 01/26/25 23:26 1,000 ML Pantoprazole Sodium 40 mg BID IV 01/23/25 22:00 02/08/25 09:40 40 MG Sodium Chloride 1,000 ml @ 200 mls/hr Q5H IV 01/25/25 11:00 Cancel Amiodarone HCl 100 mg Q12HR PO 01/25/25 22:00 02/08/25 09:40 100 MG Midazolam HCl 100 ml @ 1 mls/hr Q24H IV 01/25/25 18:00 02/07/25 05:24 2 MLS/HR Diagnostic Test (Pha) 1 strip IQ4HR 01/28/25 12:00 02/08/25 09:32 1 STRIP Insulin Human Regular IQ4HR SC 01/28/25 12:00 02/07/25 08:01 3 UNITS Levalbuterol HCl 1.25 mg Q4HR NEB 02/02/25 14:30 02/08/25 09:17 1.25 MG Ipratropium [place] 0.5 mg Q4HR NEB 02/02/25 18:00 02/08/25 09:17 0.5 MG Heparin Sodium/ Dextrose 250 ml @ 6 mls/hr Q24H IV 02/03/25 14:00 Hold Enoxaparin Sodium 70 mg DAILY SC 02/04/25 15:30 02/07/25 09:36 70 MG Norepinephrine Bitartrate 32 mg/ Sodium Chloride 250 ml @ 0.938 mls/ hr Q24H IV 02/05/25 10:00 02/08/25 07:23 0.469 MLS/HR Amiodarone HCl 250 ml @ 16.66 mls/ hr Q15H1M IV 02/05/25 16:15 02/06/25 22:17 16.66 MLS/HR Metoclopramide HCl 10 mg Q8HR GT 02/07/25 14:00 02/08/25 04:52 10 MG Ertapenem 0.5 gm/ Sodium Chloride 50 ml @ 100 mls/hr HS IV 02/07/25 22:00 02/07/25 21:07 100 MLS/HR Hydralazine HCl 10 mg Q6HP PRN IV 02/07/25 18:15 02/07/25 23:32 10 MG Laboratory Results Laboratory Tests 02/08/25 02:40 Chemistry Test 02/08/25 02:40 Calcium Level 8.9 mg/dL (8.7-10.4) Urinalysis Test 01/10/25 09:18 Urine Color Yellow (Yellow) Urine Clarity Turbid (Clear) H Urine pH 6.5 (5.0-9.0) Urine Specific [place] 1.019 (1.001-1.035) Urine Protein 2+ (Negative) H Urine Ketones Negative (Negative) Urine Blood Negative /uL (Negative) Urine Nitrite Negative (Negative) Urine Bilirubin Negative (Negative) Urine Urobilinogen Normal mg/dL (Negative) Urine Leukocyte Esterase Trace /uL (Negative) Urine RBC 7 /hpf (0 - 4) Urine Microscopic WBC 4 /HPF (0-5) Urine Squamous Epithelial Cells Few /hpf (<5) Urine Bacteria None seen /hpf (None Seen) Urine Yeast (Budding) Moderate /hpf (None Seen) Urine Glucose 1+ mg/dL (Normal) H Blood Gas Results Test 02/07/25 15:01 02/08/25 06:36 Arterial Blood pH 7.403 (7.350-7.450) 7.435 (7.350-7.450) FiO2 % 30.0 50.0 Microbiology Microbiology Date/Time Source Procedure Growth Status 02/06/25 09:05 Blood Blood Culture - Preliminary NO GROWTH AFTER 48 HOURS OF INCUBATION. Resulted 02/01/25 05:00 Catheter Tip Aerobic Culture - Final Complete 01/24/25 10:06 Bronchial Washings Gram Stain - Final Complete 01/24/25 10:06 Bronchial Washings Respiratory Culture - Final Complete 01/10/25 09:18 Voided Urine Urine Culture - Final Presumptive Sully albicans Yeast, not Sully albicans Complete Labs and/or images reviewed: Labs reviewed by me, Image(s) reviewed by me Assessment/Plan Assessment/Plan 02/07: Patient converted to sinus rhythm. Now off of vasopressor therapy. Patient has also had sedation vacation. FiO2 at 35%, peep of five. Plans for hemodialysis today. Recommend CPAP trial once neurologically and hemodynamically appropriate. Continue amiodarone infusion until hemodialysis has completed 02/08: 64 female she has diabetic ESRD, AFib. Patient is septic from right lower extremity osteomyelitis. Podiatry unable to take to OR due to unstable vitals. Levophed had to be re-initiated this morning. Patient is ESRD anuric, getting dialysis yesterday was the 1st good session because no Levophed was being needed, they did use Levophed during the dialysis. 2 L was removed. Patient looks euvolemic, maybe be dry, we will have to reassess with ultrasound IVC. Patient is growing ESBL, on Invanz. Suspicion requiring vasopressor again we will repeat blood culture. Pulmonology monitoring vent. Hydrocortisone was stopped, since vasopressors still be needed we will likely need to restart hydrocortisone and we will consider midodrine.. Patient has been intubated for few days, Glucerna we will restart, continue monitoring residuals. Patient is full code family stays by all the time Impression: -septic shock -right foot osteomyelitis -peripheral arterial disease -acute hypoxic respiratory failure -acute on chronic systolic and diastolic heart failure -end-stage renal disease with hemodialysis -diabetes mellitus Plan: -continue current ventilator settings. Wean FiO2 to keep saturation greater than 92% -pulmonology consultation: Recommendations reviewed. Assess appropriateness for weaning trial. If patient unsuccessful, we will recommend tracheostomy. -nephrology consultation: Recommendations reviewed. Plans for HD today -cardiology consultation: Recommendations reviewed -regular insulin sliding scale -repeat labs, ABG, and chest x-ray in a.m. -long discussion made with the patient's family yesterday afternoon regarding plan of care which includes possibility of tracheostomy and PEG tube placement. Code status continues to be full code at this time Critical care time spent with patient discussing and formulating plan of care: 90 minutes. This does not include time spent performing procedures. Plan discussed with: Patient Date of Service: Feb 08, 2025 Billing Provider: STEPHANY ASHRAF MD Common Visit Codes: [id number] CARE 30-74 MIN STEPHANY ASHRAF MD Feb 08, 2025 12:43
[2025-02-08] MEDS: ACETAMINOPHEN IV 1000 MG/100ML (10MG/ML) IV ONE (16:20)
--- NOTE | 2025-02-08 18:01 | DVHPN2 ---
Progress Note - Dictate Date Seen: Feb 08, 2025 Medical Necessity Reason Pt with a Central, PICC or Fol: Yes The following are medically ne: Central Line, [place] Catheter Subjective FiO2 requirement has increased to 70%. Ultrafiltration of 2 L with dialysis yesterday. vital signs Vital Sign Date Time Temp Pulse Resp B/P (MAP) Pulse Ox O2 Delivery O2 Flow Rate FiO2 02/08/25 17:15 98.1 80 22 124/45 (71) 100 98.1 02/08/25 16:00 Mechanical Ventilator+ 70 70 Total Intake and Output 02/07/25 02/07/25 02/08/25 15:00 23:00 07:00 Intake Total 209.712 ml 121.0 ml 187.5 ml Output Total 0 ml Balance 209.712 ml 121.0 ml 187.5 ml medications Current Medications Medications Dose Ordered Sig/Seth Route Start Time Stop Time Status Last Admin Dose Admin Acetaminophen 325 mg Q4HP PRN PO 01/10/25 00:30 02/08/25 12:57 325 MG Ondansetron HCl 4 mg Q4HP PRN IV 01/10/25 00:30 01/20/25 16:19 4 MG Atorvastatin Calcium 40 mg HS PO 01/10/25 22:00 02/07/25 20:49 40 MG Levothyroxine Sodium 125 mcg QAM@0600 PO 01/11/25 06:00 02/08/25 04:48 125 MCG Sodium Chloride 10 ml QSHIFT@10,22 IV 01/12/25 22:00 02/08/25 09:40 10 ML Dextrose 50 ml UD PRN IV 01/14/25 14:15 02/07/25 21:05 50 ML Fluconazole 100 mg POSTDI PRN PO 01/15/25 12:45 Cancel Albumin Human 100 ml @ 100 mls/hr WD PRN IV 01/18/25 21:00 02/03/25 11:36 100 MLS/HR Albuterol 2.5 mg Q4HPRN PRN NEB 01/20/25 16:00 02/04/25 05:45 2.5 MG Vancomycin HCl 0 ml @ 0 mls/hr PER PHARMACY IV 01/21/25 12:15 Cancel Fentanyl Citrate 250 ml @ 2.5 mls/hr Q24H IV 01/23/25 13:45 02/07/25 18:05 2.5 MLS/HR Enteral Nutritional Formula 1,000 ml 30ML/HR GT 01/23/25 18:00 01/26/25 23:26 1,000 ML Pantoprazole Sodium 40 mg BID IV 01/23/25 22:00 02/08/25 09:40 40 MG Sodium Chloride 1,000 ml @ 200 mls/hr Q5H IV 01/25/25 11:00 Cancel Amiodarone HCl 100 mg Q12HR PO 01/25/25 22:00 02/08/25 09:40 100 MG Midazolam HCl 100 ml @ 1 mls/hr Q24H IV 01/25/25 18:00 02/07/25 05:24 2 MLS/HR Diagnostic Test (Pha) 1 strip IQ4HR 01/28/25 12:00 02/08/25 16:20 1 STRIP Insulin Human Regular IQ4HR SC 01/28/25 12:00 02/07/25 08:01 3 UNITS Levalbuterol HCl 1.25 mg Q4HR NEB 02/02/25 14:30 02/08/25 13:30 1.25 MG Ipratropium [place] 0.5 mg Q4HR NEB 02/02/25 18:00 02/08/25 13:30 0.5 MG Heparin Sodium/ Dextrose 250 ml @ 6 mls/hr Q24H IV 02/03/25 14:00 Hold Enoxaparin Sodium 70 mg DAILY SC 02/04/25 15:30 02/08/25 12:58 70 MG Norepinephrine Bitartrate 32 mg/ Sodium Chloride 250 ml @ 0.938 mls/ hr Q24H IV 02/05/25 10:00 02/08/25 07:23 0.469 MLS/HR Amiodarone HCl 250 ml @ 16.66 mls/ hr Q15H1M IV 02/05/25 16:15 02/06/25 22:17 16.66 MLS/HR Metoclopramide HCl 10 mg Q8HR GT 02/07/25 14:00 02/08/25 12:58 10 MG Ertapenem 0.5 gm/ Sodium Chloride 50 ml @ 100 mls/hr HS IV 02/07/25 22:00 02/07/25 21:07 100 MLS/HR Hydralazine HCl 10 mg Q6HP PRN IV 02/07/25 18:15 02/07/25 23:32 10 MG objective intubated and sedated Pulmonary: Diminished breath sounds at bases Cardiovascular S1-S2, no S3 or S4 Abdomen: Bowel sounds positive, soft no rebound tenderness Neurological: intubated and sedated Extremities: Right foot gangrenous laboratory and microbiology Laboratory Tests 02/08/25 13:00 02/08/25 02:40 Test 02/08/25 02:40 Range/Units Serum Glucose 82 74-106 mg/dL Problem List ESRD on HD Acute hypoxic respiratory failure Shock secondary to sepsis Right foot osteomyelitis Pneumonia DM hypothyroidism Leukocytosis Anemia Hyperphosphatemia Secondary hyperparathyroidism Thrombocytopenia Assessment/Plan vent management as per pulmonary continue IV abx . Hemodialysis tomorrow. Daughter updated. Prognosis guarded Dietary Evaluation Review Comments: Nutrition Recommendation 1) CCHO 60gm + renal standard diet 2) Nephro-santosh 1 tab daily 3) Lexx 1 pk daily 4) Monitor PO intake, lab values, weight trend, and I/O Expected Outcomes/Goals: To meet >75% estimated needs Wound to improve Fu 3-5 days Plan discussed with: Daughter CC Plasma Assessment Blood Product Administration S: [id number] RENETTA LORENZ MD Feb 08, 2025 18:01
[2025-02-08] MEDS ORDERED: VANCOMYCIN PER PHARMACY 0 MG IV SCH (18:30)
[2025-02-08] MEDS: VANCOMYCIN 1GM/250ML KIT 250 ML IV ONE (18:44)
--- NOTE | 2025-02-08 22:38 | DVHPN2 ---
[facility] DOS: 02/08/2025 Patient seen and examined at bedside. Sedated, intubated on mechanical ventilator. Overnight events reviewed. Reviewed: Care Plan, H&P Changes from previous H/P or p: No Changes General: Per HPI Objective Vitals Vital Signs Date Time Temp Pulse Resp B/P (MAP) Pulse Ox O2 Delivery O2 Flow Rate FiO2 02/08/25 21:42 81 02/08/25 21:42 24 100 Mechanical Ventilator+ 70 70 02/08/25 21:30 125/32 (63) 106/44 (64) 02/08/25 20:30 97.9 97.9 Intake/Output Intake and Output 02/08/25 07:00 Intake Total 518.212 ml Output Total 0 ml Balance 518.212 ml Intake Oral 120 ml IV Total 398.212 ml Output Urine Total 0 ml Exam Gen.: Patient lying in bed in medical ICU. Sedated, intubated on mechanical ventilator. Head: Normocephalic, atraumatic. Eyes: PERRLA. Ears: Normal external anatomy. Throat: Endotracheal tube and orogastric tube in place. Neck: Supple, trachea midline. Chest: Transmitted breath sounds bilaterally. Decreased air entry bilaterally. No wheezing. Bibasilar crackles. Cardiovascular: Positive S1, positive S2. Regular rate and rhythm. Abdomen: Positive bowel sounds in all 4 quadrants. Soft, nontender, nondistended. : Lofton in place. Normal external genitalia. Rectal: Deferred. Skin: Warm, dry. Right foot osteomyelitis. Extremities: 2+ radial pulses bilaterally. No lower extremity edema. Neuro: Sedated General Appearance: mild distress, Other (Intubated and sedated) HEENT: Atraumatic, PERRLA Lungs: Clear to auscultation, Other (Mechanical ventilation.) Cardiovascular: Normal S1, Normal S2, Other (Patient now in sinus rhythm, heart rate 65) Abdomen: Normal bowel sounds, Soft, No tenderness, No hepatospenomegaly Musculoskeletal: Other (Unable to assess) Extremities: No clubbing, No cyanosis, No edema, Normal pulses, No tenderness/swelling Neuro: Other (Unable to assess) Skin: Dry, Intact, Wounds (See nurse notes and pictures), Other (Right foot necrosis) Psych/Mental Status: Other (Unable to assess) Medications Current Medications Medications Dose Ordered Sig/Seth Route Start Time Stop Time Status Last Admin Dose Admin Acetaminophen 325 mg Q4HP PRN PO 01/10/25 00:30 02/08/25 12:57 325 MG Ondansetron HCl 4 mg Q4HP PRN IV 01/10/25 00:30 01/20/25 16:19 4 MG Atorvastatin Calcium 40 mg HS PO 01/10/25 22:00 02/08/25 21:21 40 MG Levothyroxine Sodium 125 mcg QAM@0600 PO 01/11/25 06:00 02/08/25 04:48 125 MCG Sodium Chloride 10 ml QSHIFT@10,22 IV 01/12/25 22:00 02/08/25 21:20 10 ML Dextrose 50 ml UD PRN IV 01/14/25 14:15 02/07/25 21:05 50 ML Fluconazole 100 mg POSTDI PRN PO 01/15/25 12:45 Cancel Albumin Human 100 ml @ 100 mls/hr WD PRN IV 01/18/25 21:00 02/03/25 11:36 100 MLS/HR Albuterol 2.5 mg Q4HPRN PRN NEB 01/20/25 16:00 02/04/25 05:45 2.5 MG Vancomycin HCl 0 ml @ 0 mls/hr PER PHARMACY IV 01/21/25 12:15 Cancel Fentanyl Citrate 250 ml @ 2.5 mls/hr Q24H IV 01/23/25 13:45 02/07/25 18:05 2.5 MLS/HR Enteral Nutritional Formula 1,000 ml 30ML/HR GT 01/23/25 18:00 01/26/25 23:26 1,000 ML Pantoprazole Sodium 40 mg BID IV 01/23/25 22:00 02/08/25 21:20 40 MG Sodium Chloride 1,000 ml @ 200 mls/hr Q5H IV 01/25/25 11:00 Cancel Amiodarone HCl 100 mg Q12HR PO 01/25/25 22:00 02/08/25 21:21 100 MG Midazolam HCl 100 ml @ 1 mls/hr Q24H IV 01/25/25 18:00 02/07/25 05:24 2 MLS/HR Diagnostic Test (Pha) 1 strip IQ4HR 01/28/25 12:00 02/08/25 20:30 1 STRIP Insulin Human Regular IQ4HR SC 01/28/25 12:00 02/08/25 20:38 2 UNITS Levalbuterol HCl 1.25 mg Q4HR NEB 02/02/25 14:30 02/08/25 22:15 1.25 MG Ipratropium [place] 0.5 mg Q4HR NEB 02/02/25 18:00 02/08/25 22:14 0.5 MG Heparin Sodium/ Dextrose 250 ml @ 6 mls/hr Q24H IV 02/03/25 14:00 Hold Enoxaparin Sodium 70 mg DAILY SC 02/04/25 15:30 02/08/25 12:58 70 MG Norepinephrine Bitartrate 32 mg/ Sodium Chloride 250 ml @ 0.938 mls/ hr Q24H IV 02/05/25 10:00 02/08/25 07:23 0.469 MLS/HR Amiodarone HCl 250 ml @ 16.66 mls/ hr Q15H1M IV 02/05/25 16:15 02/06/25 22:17 16.66 MLS/HR Metoclopramide HCl 10 mg Q8HR GT 02/07/25 14:00 02/08/25 21:20 10 MG Ertapenem 0.5 gm/ Sodium Chloride 50 ml @ 100 mls/hr HS IV 02/07/25 22:00 02/08/25 21:22 100 MLS/HR Hydralazine HCl 10 mg Q6HP PRN IV 02/07/25 18:15 02/07/25 23:32 10 MG Vancomycin HCl 0 ml @ 0 mls/hr PER PHARMACY IV 02/08/25 18:30 Laboratory Results Laboratory Tests 02/08/25 02:40 02/08/25 13:00 Chemistry Test 02/08/25 02:40 Calcium Level 8.9 mg/dL (8.7-10.4) Urinalysis Test 01/10/25 09:18 Urine Color Yellow (Yellow) Urine Clarity Turbid (Clear) H Urine pH 6.5 (5.0-9.0) Urine Specific [place] 1.019 (1.001-1.035) Urine Protein 2+ (Negative) H Urine Ketones Negative (Negative) Urine Blood Negative /uL (Negative) Urine Nitrite Negative (Negative) Urine Bilirubin Negative (Negative) Urine Urobilinogen Normal mg/dL (Negative) Urine Leukocyte Esterase Trace /uL (Negative) Urine RBC 7 /hpf (0 - 4) Urine Microscopic WBC 4 /HPF (0-5) Urine Squamous Epithelial Cells Few /hpf (<5) Urine Bacteria None seen /hpf (None Seen) Urine Yeast (Budding) Moderate /hpf (None Seen) Urine Glucose 1+ mg/dL (Normal) H Blood Gas Results Test 02/08/25 06:36 Arterial Blood pH 7.435 (7.350-7.450) FiO2 % 50.0 Microbiology Microbiology Date/Time Source Procedure Growth Status 02/06/25 09:05 Blood Blood Culture - Preliminary NO GROWTH AFTER 48 HOURS OF INCUBATION. Resulted 02/01/25 05:00 Catheter Tip Aerobic Culture - Final Complete 01/24/25 10:06 Bronchial Washings Gram Stain - Final Complete 01/24/25 10:06 Bronchial Washings Respiratory Culture - Final Complete 01/10/25 09:18 Voided Urine Urine Culture - Final Presumptive Sully albicans Yeast, not Sully albicans Complete Assessment/Plan Assessment/Plan Impression: Acute hypoxic respiratory failure On mechanical ventilator Acute CHF exacerbation End-stage renal disease, on hemodialysis Osteomyelitis DVT, left upper extremity Overweight Events: Remains on vent support On AC mode; RR 24, VT 400, PEEP 5, FiO2 70% Increased FIO2 requirements Increase PEEP to 8 cmH2O Patient noted to desaturate with turns. Sedated on Versed 1 mg/hr Fentanyl 75 mcg.drip for analgesia, ABG reviewed, compensated. CXR today shows devices in place; patchy bilateral airspace opacities. Hemodialysis per Nephrology - 2 liters removed yesterday Monitor for blood pressure drops during hemodialysis. Amiodarone drip for atrial fibrillation with rapid ventricular response - transition to amiodarone PO. Pressors for hemodynamic support Levophed 3 mcg/min Titrate to keep MAP above 65 mmHg/SBP above 90 mmHg. Taper pressors as tolerated Monitor blood pressure Follow up Cardiology recs. Of note, patient had a cardiopulmonary arrest on 02/02/25 for 1 minute, ROSC achieved. Heparin drip due to left upper extremity DVT - currently on hold. Monitor hemoglobin - currently stable. Transfuse if less than 7.0 g/dL. On Lovenox SC. Continue bronchodilators. Continue antibiotics. Hemodialysis per Nephrology Follow up Nephrology recommendations Monitor renal function Monitor electrolytes. Supplement as necessary. Accu-Cheks, ISS. Tube feeds for nutritional support DTI sacrum - wound care. CPAP daily if appropriate, as tolerated. Note, patient with overall poor prognosis High likelihood of demise. Left upper extremity venous duplex revealed DVT in left axillary and brachial veins. Labs and imaging reviewed. Rest of plan as noted below. Plan: s/p intubation on mechanical ventilator. On AC mode; RR 24, VT 400, PEEP 8, FiO2 70% S/p bronchoscopy on 11/24/24 - Results from bronchial washings show no growth. Titrate FIO2 to keep O2 saturation above 90%. VAP bundle. Daily ABG and CXR while intubated Continue bronchodilators. Continue antibiotics. Follow up cultures. IV steroids Pressors for hemodynamic support Titrate to keep MAP above 65 mmHg/SBP above 90 mmHg. Accu-Cheks, ISS Wound care. Monitor H&H. Hemodialysis per Nephrology Monitor renal function Monitor electrolytes. Supplement as necessary. Monitor ins and outs. Maintain euvolemia. GI prophylaxis. DVT prophylaxis. Prognosis: Poor given patient's multiple co-morbidities. Condition: Critical Rest of plan per hospitalist and other consultants. A total of 35 minutes of critical care time was spent reviewing the patient record, examining the patient, making a diagnostic and therapeutic plan, discussing this plan with the medical personnel, following up on diagnostic studies and following the patient for clinical stability excluding any and all procedures. At least 50% of this time was spent in direct, [id number] contact. Thank you, Dr. Bowie, for allowing me to participate in this patient's care. Further recommendations will depend on the patient's clinical course. Please do not hesitate to contact me if you have any questions or concerns. This medical document was created using an electronic medical record system with [employer] dictation system. Although these documentations are being carefully reviewed, there may still be some phonetic and typographical changes. The errors are purely typographical, due to imperfection on the software program, and do not reflect any compromise in the patient's medical care. Plan discussed with: Other (ALBERTINA Chow/Atif) My Orders Orders - ALCON GUTHRIE MD Procedure Category Date Status Time Ventilator Orders RT 02/08/25 Transmitted 13:55 Visit Coding Pulmonary Billing Provider: ALCON GUTHRIE MD Date of Service if different f: Feb 08, 2025 Common Visit Codes: 48410-[id number] INP/OBS CARE(HIGH), 00998-[id number] CARE 30-74 MIN ALCON GUTHRIE MD Feb 08, 2025 22:38
[2025-02-09] VITALS (121 sets, daily range): BP systolic 78–157; BP diastolic 11–69; PULSE 77–102; RESP 12–27; TEMP 96.7–100.3; O2SAT 95–100
[2025-02-09 03:45] LABS: Hematocrit 31.2 % (36.0-46.0); Hemoglobin 10.2 g/dL (12.2-16.2); Mean Corpuscular Hemoglobin 30.6 pg (28.0-32.0); Mean Corpuscular Volume 93.5 fL (80.0-100.0); Nucleated Red Blood Cells % 0.2 %
[2025-02-09 04:07] LABS: Chloride 105 mmol/L (98-107); Potassium 3.8 mmol/L (3.5-5.1); Sodium 142 mmol/L (136-145)
[2025-02-09 04:08] LABS: Anion Gap 12 (5-15); Carbon Dioxide 25 mmol/L (20-31)
[2025-02-09 04:13] LABS: Calcium 8.5 mg/dL (8.7-10.4); Glucose 132 mg/dL (74-106); Magnesium 2.2 mg/dL (1.6-2.6)
[2025-02-09 04:14] LABS: BUN/Creatinine Ratio 14.4 (10.0-20.0); Blood Urea Nitrogen 52 mg/dL (9-23)
--- NOTE | 2025-02-09 06:09 | DVH ---
CHEST RADIOGRAPH Indication: pna Technique: Single frontal view of the chest was obtained Comparison: XY CHEST PORTABLE on DOS: 02/08/25 FINDINGS: Lines and Tubes: The endotracheal tube terminates 4.8 cm above the rod. AICD/ pacemaker noted. The enteric tube courses below the left hemidiaphragm and the tip extends outside the field of view. Lungs: Patchy bilateral consolidation is similar to prior study. Pleura: Left pleural effusion is unchanged. No pneumothorax. Cardiomediastinal contours: Unremarkable Bones: No acute osseous abnormality. IMPRESSION: 1. Appropriate position of the support lines and tubes. 2. Bilateral consolidation which may reflect multifocal pneumonia similar to prior study. 3. Small left pleural effusion.
[2025-02-09] MEDS: SODIUM CHL 0.9% 1000 ML BAG XX ONE (07:00)
[2025-02-09 07:31] LABS: Base Excess -2.0 mmol/L (-2.0-3.0)
--- NOTE | 2025-02-09 09:29 | DVHPN2 ---
Progress Note - Dictate Date Seen: Feb 09, 2025 Medical Necessity Reason Pt with a Central, PICC or Fol: Yes The following are medically ne: Central Line, [place] Catheter Subjective No acute issues overnight vital signs Vital Sign Date Time Temp Pulse Resp B/P (MAP) Pulse Ox O2 Delivery O2 Flow Rate FiO2 02/09/25 09:00 93 23 122/39 (66) 100 02/09/25 08:00 Mechanical Ventilator+ 60 60 02/09/25 08:00 97.8 97.8 Total Intake and Output 02/08/25 02/08/25 02/09/25 14:59 22:59 06:59 Intake Total 74.237 ml 199.000 ml 245.938 ml Output Total 0 ml 0 ml Balance 74.237 ml 199.000 ml 245.938 ml medications Current Medications Medications Dose Ordered Sig/Seth Route Start Time Stop Time Status Last Admin Dose Admin Acetaminophen 325 mg Q4HP PRN PO 01/10/25 00:30 02/08/25 12:57 325 MG Ondansetron HCl 4 mg Q4HP PRN IV 01/10/25 00:30 01/20/25 16:19 4 MG Atorvastatin Calcium 40 mg HS PO 01/10/25 22:00 02/08/25 21:21 40 MG Levothyroxine Sodium 125 mcg QAM@0600 PO 01/11/25 06:00 02/09/25 05:41 125 MCG Sodium Chloride 10 ml QSHIFT@10,22 IV 01/12/25 22:00 02/09/25 08:44 10 ML Dextrose 50 ml UD PRN IV 01/14/25 14:15 02/07/25 21:05 50 ML Fluconazole 100 mg POSTDI PRN PO 01/15/25 12:45 Cancel Albumin Human 100 ml @ 100 mls/hr WD PRN IV 01/18/25 21:00 02/03/25 11:36 100 MLS/HR Albuterol 2.5 mg Q4HPRN PRN NEB 01/20/25 16:00 02/09/25 06:45 2.5 MG Vancomycin HCl 0 ml @ 0 mls/hr PER PHARMACY IV 01/21/25 12:15 Cancel Fentanyl Citrate 250 ml @ 2.5 mls/hr Q24H IV 01/23/25 13:45 02/07/25 18:05 2.5 MLS/HR Enteral Nutritional Formula 1,000 ml 30ML/HR GT 01/23/25 18:00 01/26/25 23:26 1,000 ML Pantoprazole Sodium 40 mg BID IV 01/23/25 22:00 02/09/25 08:44 40 MG Sodium Chloride 1,000 ml @ 200 mls/hr Q5H IV 01/25/25 11:00 Cancel Amiodarone HCl 100 mg Q12HR PO 01/25/25 22:00 02/09/25 08:45 100 MG Midazolam HCl 100 ml @ 1 mls/hr Q24H IV 01/25/25 18:00 02/08/25 23:42 3 MLS/HR Diagnostic Test (Pha) 1 strip IQ4HR 01/28/25 12:00 02/09/25 07:39 1 STRIP Insulin Human Regular IQ4HR SC 01/28/25 12:00 02/09/25 03:23 2 UNITS Levalbuterol HCl 1.25 mg Q4HR NEB 02/02/25 14:30 02/09/25 02:15 1.25 MG Ipratropium [place] 0.5 mg Q4HR NEB 02/02/25 18:00 02/09/25 06:45 0.5 MG Heparin Sodium/ Dextrose 250 ml @ 6 mls/hr Q24H IV 02/03/25 14:00 Hold Enoxaparin Sodium 70 mg DAILY SC 02/04/25 15:30 02/08/25 12:58 70 MG Norepinephrine Bitartrate 32 mg/ Sodium Chloride 250 ml @ 0.938 mls/ hr Q24H IV 02/05/25 10:00 02/08/25 07:23 0.469 MLS/HR Amiodarone HCl 250 ml @ 16.66 mls/ hr Q15H1M IV 02/05/25 16:15 02/06/25 22:17 16.66 MLS/HR Metoclopramide HCl 10 mg Q8HR GT 02/07/25 14:00 02/09/25 05:40 10 MG Ertapenem 0.5 gm/ Sodium Chloride 50 ml @ 100 mls/hr HS IV 02/07/25 22:00 02/08/25 21:22 100 MLS/HR Hydralazine HCl 10 mg Q6HP PRN IV 02/07/25 18:15 02/07/25 23:32 10 MG Vancomycin HCl 0 ml @ 0 mls/hr PER PHARMACY IV 02/08/25 18:30 objective intubated and sedated Pulmonary: Diminished breath sounds at bases Cardiovascular S1-S2, no S3 or S4 Abdomen: Bowel sounds positive, soft no rebound tenderness Neurological: intubated and sedated Extremities: Right foot gangrenous laboratory and microbiology Laboratory Tests 02/09/25 03:00 Test 02/09/25 03:00 Range/Units Serum Glucose 132 H 74-106 mg/dL Problem List ESRD on HD Acute hypoxic respiratory failure Shock secondary to sepsis Right foot osteomyelitis Pneumonia DM hypothyroidism Leukocytosis Anemia Hyperphosphatemia Secondary hyperparathyroidism Thrombocytopenia Assessment/Plan HD on MWF schedule vent management as per pulmonary continue IV abx .Worsening leucocytosis . Did d/w daughter yesterday Prognosis guarded Dietary Evaluation Review Comments: Nutrition Recommendation 1) CCHO 60gm + renal standard diet 2) Nephro-santosh 1 tab daily 3) Lexx 1 pk daily 4) Monitor PO intake, lab values, weight trend, and I/O Expected Outcomes/Goals: To meet >75% estimated needs Wound to improve Fu 3-5 days Plan discussed with: Other CC Plasma Assessment Blood Product Administration S: [id number] RENETTA LORENZ MD Feb 09, 2025 09:29
[2025-02-09] MEDS: MIDODRINE HCL 10 MG TAB PO SCH (11:40)
--- NOTE | 2025-02-09 12:57 | DVHPN2 ---
Reviewed: Care Plan, H&P Changes from previous H/P or p: No Changes General: Per HPI Objective Vitals Vital Signs Date Time Temp Pulse Resp B/P (MAP) Pulse Ox O2 Delivery O2 Flow Rate FiO2 02/09/25 12:00 99.0 89 19 131/44 (73) 100 99.0 02/09/25 11:33 50 02/09/25 11:32 Mechanical Ventilator+ Intake/Output Intake and Output 02/09/25 07:00 Intake Total 532.488 ml Output Total 0 ml Balance 532.488 ml Intake Oral 60 ml IV Total 386.488 ml Tube Feeding 86 ml Output Urine Total 0 ml Stool Total 0 ml General Appearance: mild distress, Other (Intubated and sedated) HEENT: Atraumatic, PERRLA Lungs: Clear to auscultation, Other (Mechanical ventilation.) Cardiovascular: Normal S1, Normal S2, Other (Patient now in sinus rhythm, heart rate 65) Abdomen: Normal bowel sounds, Soft, No tenderness, No hepatospenomegaly Musculoskeletal: Other (Unable to assess) Extremities: No clubbing, No cyanosis, No edema, Normal pulses, No tenderness/swelling Neuro: Other (Unable to assess) Skin: Dry, Intact, Wounds (See nurse notes and pictures), Other (Right foot necrosis) Psych/Mental Status: Other (Unable to assess) Medications Current Medications Medications Dose Ordered Sig/Seth Route Start Time Stop Time Status Last Admin Dose Admin Acetaminophen 325 mg Q4HP PRN PO 01/10/25 00:30 02/08/25 12:57 325 MG Ondansetron HCl 4 mg Q4HP PRN IV 01/10/25 00:30 01/20/25 16:19 4 MG Atorvastatin Calcium 40 mg HS PO 01/10/25 22:00 02/08/25 21:21 40 MG Levothyroxine Sodium 125 mcg QAM@0600 PO 01/11/25 06:00 02/09/25 05:41 125 MCG Sodium Chloride 10 ml QSHIFT@1022 IV 01/12/25 22:00 02/09/25 08:44 10 ML Dextrose 50 ml UD PRN IV 01/14/25 14:15 02/07/25 21:05 50 ML Fluconazole 100 mg POSTDI PRN PO 01/15/25 12:45 Cancel Albumin Human 100 ml @ 100 mls/hr WD PRN IV 01/18/25 21:00 02/03/25 11:36 100 MLS/HR Albuterol 2.5 mg Q4HPRN PRN NEB 01/20/25 16:00 02/09/25 10:15 2.5 MG Vancomycin HCl 0 ml @ 0 mls/hr PER PHARMACY IV 01/21/25 12:15 Cancel Fentanyl Citrate 250 ml @ 2.5 mls/hr Q24H IV 01/23/25 13:45 02/07/25 18:05 2.5 MLS/HR Enteral Nutritional Formula 1,000 ml 30ML/HR GT 01/23/25 18:00 01/26/25 23:26 1,000 ML Pantoprazole Sodium 40 mg BID IV 01/23/25 22:00 02/09/25 08:44 40 MG Sodium Chloride 1,000 ml @ 200 mls/hr Q5H IV 01/25/25 11:00 Cancel Amiodarone HCl 100 mg Q12HR PO 01/25/25 22:00 02/09/25 08:45 100 MG Midazolam HCl 100 ml @ 1 mls/hr Q24H IV 01/25/25 18:00 02/08/25 23:42 3 MLS/HR Diagnostic Test (Pha) 1 strip IQ4HR 01/28/25 12:00 02/09/25 11:40 1 STRIP Insulin Human Regular IQ4HR SC 01/28/25 12:00 02/09/25 03:23 2 UNITS Levalbuterol HCl 1.25 mg Q4HR NEB 02/02/25 14:30 02/09/25 02:15 1.25 MG Ipratropium [place] 0.5 mg Q4HR NEB 02/02/25 18:00 02/09/25 10:15 0.5 MG Heparin Sodium/ Dextrose 250 ml @ 6 mls/hr Q24H IV 02/03/25 14:00 Hold Enoxaparin Sodium 70 mg DAILY SC 02/04/25 15:30 02/08/25 12:58 70 MG Norepinephrine Bitartrate 32 mg/ Sodium Chloride 250 ml @ 0.938 mls/ hr Q24H IV 02/05/25 10:00 02/08/25 07:23 0.469 MLS/HR Amiodarone HCl 250 ml @ 16.66 mls/ hr Q15H1M IV 02/05/25 16:15 02/06/25 22:17 16.66 MLS/HR Metoclopramide HCl 10 mg Q8HR GT 02/07/25 14:00 02/09/25 05:40 10 MG Ertapenem 0.5 gm/ Sodium Chloride 50 ml @ 100 mls/hr HS IV 02/07/25 22:00 02/08/25 21:22 100 MLS/HR Hydralazine HCl 10 mg Q6HP PRN IV 02/07/25 18:15 02/07/25 23:32 10 MG Vancomycin HCl 0 ml @ 0 mls/hr PER PHARMACY IV 02/08/25 18:30 Hydrocortisone Sodium Succinate 100 mg Q12HR IV 02/09/25 22:00 Midodrine 10 mg TID@0600,1200,1800 PO 02/09/25 12:00 02/09/25 11:40 10 MG Laboratory Results Laboratory Tests 02/09/25 03:00 Chemistry Test 02/09/25 03:00 Calcium Level 8.5 mg/dL (8.7-10.4) L Magnesium Level 2.2 mg/dL (1.6-2.6) Urinalysis Test 01/10/25 09:18 Urine Color Yellow (Yellow) Urine Clarity Turbid (Clear) H Urine pH 6.5 (5.0-9.0) Urine Specific [place] 1.019 (1.001-1.035) Urine Protein 2+ (Negative) H Urine Ketones Negative (Negative) Urine Blood Negative /uL (Negative) Urine Nitrite Negative (Negative) Urine Bilirubin Negative (Negative) Urine Urobilinogen Normal mg/dL (Negative) Urine Leukocyte Esterase Trace /uL (Negative) Urine RBC 7 /hpf (0 - 4) Urine Microscopic WBC 4 /HPF (0-5) Urine Squamous Epithelial Cells Few /hpf (<5) Urine Bacteria None seen /hpf (None Seen) Urine Yeast (Budding) Moderate /hpf (None Seen) Urine Glucose 1+ mg/dL (Normal) H Blood Gas Results Test 02/09/25 07:18 Arterial Blood pH 7.353 (7.350-7.450) FiO2 % 60.0 Microbiology Microbiology Date/Time Source Procedure Growth Status 02/06/25 09:05 Blood Blood Culture - Preliminary NO GROWTH AFTER 72 HOURS OF INCUBATION. Resulted 02/01/25 05:00 Catheter Tip Aerobic Culture - Final Complete 01/24/25 10:06 Bronchial Washings Gram Stain - Final Complete 01/24/25 10:06 Bronchial Washings Respiratory Culture - Final Complete 01/10/25 09:18 Voided Urine Urine Culture - Final Presumptive Sully albicans Yeast, not Sully albicans Complete Labs and/or images reviewed: Labs reviewed by me, Image(s) reviewed by me Assessment/Plan Assessment/Plan 02/07: Patient converted to sinus rhythm. Now off of vasopressor therapy. Patient has also had sedation vacation. FiO2 at 35%, peep of five. Plans for hemodialysis today. Recommend CPAP trial once neurologically and hemodynamically appropriate. Continue amiodarone infusion until hemodialysis has completed 02/08: 64 female she has diabetic ESRD, AFib. Patient is septic from right lower extremity osteomyelitis. Podiatry unable to take to OR due to unstable vitals. Levophed had to be re-initiated this morning. Patient is ESRD anuric, getting dialysis yesterday was the 1st good session because no Levophed was being needed, they did use Levophed during the dialysis. 2 L was removed. Patient looks euvolemic, maybe be dry, we will have to reassess with ultrasound IVC. Patient is growing ESBL, on Invanz. Suspicion requiring vasopressor again we will repeat blood culture. Pulmonology monitoring vent. Hydrocortisone was stopped, since vasopressors still be needed we will likely need to restart hydrocortisone and we will consider midodrine.. Patient has been intubated for few days, Glucerna we will restart, continue monitoring residuals. Patient is full code family stays by all the time 02/09: Continues to require Levophed, we will start monitoring in hydrocortisone. Blood cultures pending. This is low, unknown reason, no history of alcohol. We will get hit panel. We will discuss with Podiatry. Possible if patient is stabilized by Wednesday apps treat the source of infection see if patient recovers thereafter. Impression: -septic shock -right foot osteomyelitis -peripheral arterial disease -acute hypoxic respiratory failure -acute on chronic systolic and diastolic heart failure -end-stage renal disease with hemodialysis -diabetes mellitus Plan: -continue current ventilator settings. Wean FiO2 to keep saturation greater than 92% -pulmonology consultation: Recommendations reviewed. Assess appropriateness for weaning trial. If patient unsuccessful, we will recommend tracheostomy. -nephrology consultation: Recommendations reviewed. Plans for HD today -cardiology consultation: Recommendations reviewed -regular insulin sliding scale -repeat labs, ABG, and chest x-ray in a.m. -long discussion made with the patient's family yesterday afternoon regarding plan of care which includes possibility of tracheostomy and PEG tube placement. Code status continues to be full code at this time Critical care time spent with patient discussing and formulating plan of care: 90 minutes. This does not include time spent performing procedures. Plan discussed with: Patient My Orders Orders - STEPHANY ASHRAF MD Procedure Category Date Status Time Blood Culture REINALDO 02/08/25 In Process 12:57 Vancomycin Per PHA 02/08/25 In Process Pharmacy 18:30 Vancomycin,Random LAB 02/10/25 Verified 04:00 Complete Blood Count LAB 02/10/25 Verified 05:00 Hydrocortisone [facility] 02/09/25 In Process Succinate Inj 22:00 Midodrine Tablet [facility] 02/09/25 In Process (Proamatine Tablet) 12:00 Date of Service: Feb 09, 2025 Billing Provider: STEPHANY ASHRAF MD Common Visit Codes: [id number] CARE 30-74 MIN STEPHANY ASHRAF MD Feb 09, 2025 12:57
--- NOTE | 2025-02-09 16:59 | DVHPN2 ---
Progress Note Date Seen: Feb 09, 2025 Resident Creating Document: MERLY THAKUR RESIDENT Medical Necessity Reason Pt with a Central, PICC or Fol: Yes The following are medically ne: Central Line, [place] Catheter Subjective Review of Systems Seen and examined at bedside Gastric Residual volumes less than 50 mL Continues to be on ventilator with a high oxygenation requirements Objective vital signs Vital Sign Date Time Temp Pulse Resp B/P (MAP) Pulse Ox O2 Delivery O2 Flow Rate FiO2 02/09/25 16:30 91 23 109/22 (51) 96 115/41 (65) 02/09/25 16:00 100.0 100.0 02/09/25 16:00 Mechanical Ventilator+ 40 40 Total Intake and Output 02/08/25 02/08/25 02/09/25 14:59 22:59 06:59 Intake Total 74.237 ml 199.000 ml 245.938 ml Output Total 0 ml 0 ml Balance 74.237 ml 199.000 ml 245.938 ml medications Current Medications Medications Dose Ordered Sig/Seth Route Start Time Stop Time Status Last Admin Dose Admin Acetaminophen 325 mg Q4HP PRN PO 01/10/25 00:30 02/08/25 12:57 325 MG Ondansetron HCl 4 mg Q4HP PRN IV 01/10/25 00:30 01/20/25 16:19 4 MG Atorvastatin Calcium 40 mg HS PO 01/10/25 22:00 02/08/25 21:21 40 MG Levothyroxine Sodium 125 mcg QAM@0600 PO 01/11/25 06:00 02/09/25 05:41 125 MCG Sodium Chloride 10 ml QSHIFT@10,22 IV 01/12/25 22:00 02/09/25 08:44 10 ML Dextrose 50 ml UD PRN IV 01/14/25 14:15 02/07/25 21:05 50 ML Fluconazole 100 mg POSTDI PRN PO 01/15/25 12:45 Cancel Albumin Human 100 ml @ 100 mls/hr WD PRN IV 01/18/25 21:00 02/03/25 11:36 100 MLS/HR Albuterol 2.5 mg Q4HPRN PRN NEB 01/20/25 16:00 02/09/25 14:24 2.5 MG Vancomycin HCl 0 ml @ 0 mls/hr PER PHARMACY IV 01/21/25 12:15 Cancel Fentanyl Citrate 250 ml @ 2.5 mls/hr Q24H IV 01/23/25 13:45 02/09/25 15:01 7.5 MLS/HR Enteral Nutritional Formula 1,000 ml 30ML/HR GT 01/23/25 18:00 01/26/25 23:26 1,000 ML Pantoprazole Sodium 40 mg BID IV 01/23/25 22:00 02/09/25 08:44 40 MG Sodium Chloride 1,000 ml @ 200 mls/hr Q5H IV 01/25/25 11:00 Cancel Amiodarone HCl 100 mg Q12HR PO 01/25/25 22:00 02/09/25 08:45 100 MG Midazolam HCl 100 ml @ 1 mls/hr Q24H IV 01/25/25 18:00 02/08/25 23:42 3 MLS/HR Diagnostic Test (Pha) 1 strip IQ4HR 01/28/25 12:00 02/09/25 11:40 1 STRIP Insulin Human Regular IQ4HR SC 01/28/25 12:00 02/09/25 03:23 2 UNITS Levalbuterol HCl 1.25 mg Q4HR NEB 02/02/25 14:30 02/09/25 02:15 1.25 MG Ipratropium [place] 0.5 mg Q4HR NEB 02/02/25 18:00 02/09/25 14:24 0.5 MG Heparin Sodium/ Dextrose 250 ml @ 6 mls/hr Q24H IV 02/03/25 14:00 Hold Enoxaparin Sodium 70 mg DAILY SC 02/04/25 15:30 02/08/25 12:58 70 MG Norepinephrine Bitartrate 32 mg/ Sodium Chloride 250 ml @ 0.938 mls/ hr Q24H IV 02/05/25 10:00 02/08/25 07:23 0.469 MLS/HR Amiodarone HCl 250 ml @ 16.66 mls/ hr Q15H1M IV 02/05/25 16:15 02/06/25 22:17 16.66 MLS/HR Metoclopramide HCl 10 mg Q8HR GT 02/07/25 14:00 02/09/25 14:54 10 MG Ertapenem 0.5 gm/ Sodium Chloride 50 ml @ 100 mls/hr HS IV 02/07/25 22:00 02/08/25 21:22 100 MLS/HR Hydralazine HCl 10 mg Q6HP PRN IV 02/07/25 18:15 02/07/25 23:32 10 MG Vancomycin HCl 0 ml @ 0 mls/hr PER PHARMACY IV 02/08/25 18:30 Hydrocortisone Sodium Succinate 100 mg Q12HR IV 02/09/25 22:00 Midodrine 10 mg TID@0600,1200,1800 PO 02/09/25 12:00 02/09/25 11:40 10 MG Examination Gen - no pallor, no scleral icterus Skin - Patients skin is warm and dry. HEENT - normocephalic, atraumatic, dry mucous membranes. Neck - supple, no lymphadenopathy Pulmonary - improved breath sounds bilaterally cardiovascular - regular S1,S2 heard GI - soft abdomen. Bowel sounds hypoactive. Neurological - sedated and on mechanical ventilation laboratory and microbiology Laboratory Tests 02/09/25 03:00 Test 02/09/25 03:00 Range/Units Serum Glucose 132 H 74-106 mg/dL Microbiology Date/Time Source Procedure Growth Status 02/08/25 13:20 Blood Blood Culture - Preliminary NO GROWTH AFTER 24 HOURS OF INCUBATION. Resulted 02/01/25 05:00 Catheter Tip Aerobic Culture - Final Complete 01/24/25 10:06 Bronchial Washings Gram Stain - Final Complete 01/24/25 10:06 Bronchial Washings Respiratory Culture - Final Complete 01/10/25 09:18 Voided Urine Urine Culture - Final Presumptive Sully albicans Yeast, not Sully albicans Complete Problem List/Assessment/Plan Problem List/Assessment/Plan Assessment Possible GI bleed Sepsis likely from osteomyelitis Acute on chronic systolic heart failure Thrombocytopenia Coagulopathy PAT on CKD likely due to VMN Left upper extremity DVT Cardiopulmonary arrest s/p ROSC Plan - Protonix 40 mg IV b.i.d. - once the patient is hemodynamically stable, she may benefit from EGD - watch H&H, keep hemoglobin above 7 - residual volumes less than 50 mL continue on tube feedings - on therapeutic Lovenox because of atrial fibrillation, increased risk of GI bleeding Poor prognosis Plan discussed with Dr. Soto Plan discussed with: Other (ALBERTINA Chow) Dietary Evaluation Review Comments: Nutrition Recommendation 1) CCHO 60gm + renal standard diet 2) Nephro-santosh 1 tab daily 3) Lexx 1 pk daily 4) Monitor PO intake, lab values, weight trend, and I/O Expected Outcomes/Goals: To meet >75% estimated needs Wound to improve Fu 3-5 days CC Plasma Assessment Blood Product Administration S: [id number] MERLY THAKUR RESIDENT Feb 09, 2025 16:59
[2025-02-09] MEDS: EPOETIN ALFA-EPBX 4,000 UNIT/ML VIAL SC ONE (21:00)
[2025-02-09] MEDS: HYDROCORTISONE SOD SUCC 100 MG/2ML INJ VIAL IV SCH (21:08)
--- NOTE | 2025-02-09 23:04 | DVHPN2 ---
[facility] DOS: 02/09/2025 Patient seen and examined at bedside. Sedated, intubated on mechanical ventilator. Overnight events reviewed. Reviewed: Care Plan, H&P Changes from previous H/P or p: No Changes General: Per HPI Objective Vitals Vital Signs Date Time Temp Pulse Resp B/P (MAP) Pulse Ox O2 Delivery O2 Flow Rate FiO2 02/09/25 22:00 85 24 135/24 (61) 98 147/47 (80) 02/09/25 21:56 40 02/09/25 21:56 Mechanical Ventilator+ 02/09/25 20:15 96.8 96.8 Intake/Output Intake and Output 02/09/25 07:00 Intake Total 532.488 ml Output Total 0 ml Balance 532.488 ml Intake Oral 60 ml IV Total 386.488 ml Tube Feeding 86 ml Output Urine Total 0 ml Stool Total 0 ml Exam Gen.: Patient lying in bed in medical ICU. Sedated, intubated on mechanical ventilator. Head: Normocephalic, atraumatic. Eyes: PERRLA. Ears: Normal external anatomy. Throat: Endotracheal tube and orogastric tube in place. Neck: Supple, trachea midline. Chest: Transmitted breath sounds bilaterally. Decreased air entry bilaterally. No wheezing. Bibasilar crackles. Cardiovascular: Positive S1, positive S2. Regular rate and rhythm. Abdomen: Positive bowel sounds in all 4 quadrants. Soft, nontender, nondistended. : Lofton in place. Normal external genitalia. Rectal: Deferred. Skin: Warm, dry. Right foot osteomyelitis. Extremities: 2+ radial pulses bilaterally. No lower extremity edema. Neuro: Sedated General Appearance: mild distress, Other (Intubated and sedated) HEENT: Atraumatic, PERRLA Lungs: Clear to auscultation, Other (Mechanical ventilation.) Cardiovascular: Normal S1, Normal S2, Other (Patient now in sinus rhythm, heart rate 65) Abdomen: Normal bowel sounds, Soft, No tenderness, No hepatospenomegaly Musculoskeletal: Other (Unable to assess) Extremities: No clubbing, No cyanosis, No edema, Normal pulses, No tenderness/swelling Neuro: Other (Unable to assess) Skin: Dry, Intact, Wounds (See nurse notes and pictures), Other (Right foot necrosis) Psych/Mental Status: Other (Unable to assess) Medications Current Medications Medications Dose Ordered Sig/Seth Route Start Time Stop Time Status Last Admin Dose Admin Acetaminophen 325 mg Q4HP PRN PO 01/10/25 00:30 02/08/25 12:57 325 MG Ondansetron HCl 4 mg Q4HP PRN IV 01/10/25 00:30 01/20/25 16:19 4 MG Atorvastatin Calcium 40 mg HS PO 01/10/25 22:00 02/09/25 21:09 40 MG Levothyroxine Sodium 125 mcg QAM@0600 PO 01/11/25 06:00 02/09/25 05:41 125 MCG Sodium Chloride 10 ml QSHIFT@10,22 IV 01/12/25 22:00 02/09/25 21:09 10 ML Dextrose 50 ml UD PRN IV 01/14/25 14:15 02/07/25 21:05 50 ML Fluconazole 100 mg POSTDI PRN PO 01/15/25 12:45 Cancel Albumin Human 100 ml @ 100 mls/hr WD PRN IV 01/18/25 21:00 02/03/25 11:36 100 MLS/HR Albuterol 2.5 mg Q4HPRN PRN NEB 01/20/25 16:00 02/09/25 14:24 2.5 MG Vancomycin HCl 0 ml @ 0 mls/hr PER PHARMACY IV 01/21/25 12:15 Cancel Fentanyl Citrate 250 ml @ 2.5 mls/hr Q24H IV 01/23/25 13:45 02/09/25 15:01 7.5 MLS/HR Enteral Nutritional Formula 1,000 ml 30ML/HR GT 01/23/25 18:00 02/09/25 21:09 1,000 ML Pantoprazole Sodium 40 mg BID IV 01/23/25 22:00 02/09/25 21:08 40 MG Sodium Chloride 1,000 ml @ 200 mls/hr Q5H IV 01/25/25 11:00 Cancel Amiodarone HCl 100 mg Q12HR PO 01/25/25 22:00 02/09/25 21:09 100 MG Midazolam HCl 100 ml @ 1 mls/hr Q24H IV 01/25/25 18:00 02/08/25 23:42 3 MLS/HR Diagnostic Test (Pha) 1 strip IQ4HR 01/28/25 12:00 02/09/25 20:13 1 STRIP Insulin Human Regular IQ4HR SC 01/28/25 12:00 02/09/25 03:23 2 UNITS Levalbuterol HCl 1.25 mg Q4HR NEB 02/02/25 14:30 02/09/25 21:21 1.25 MG Ipratropium [place] 0.5 mg Q4HR NEB 02/02/25 18:00 02/09/25 21:22 0.5 MG Heparin Sodium/ Dextrose 250 ml @ 6 mls/hr Q24H IV 02/03/25 14:00 Hold Enoxaparin Sodium 70 mg DAILY SC 02/04/25 15:30 02/08/25 12:58 70 MG Norepinephrine Bitartrate 32 mg/ Sodium Chloride 250 ml @ 0.938 mls/ hr Q24H IV 02/05/25 10:00 02/09/25 21:10 2.813 MLS/HR Amiodarone HCl 250 ml @ 16.66 mls/ hr Q15H1M IV 02/05/25 16:15 02/06/25 22:17 16.66 MLS/HR Metoclopramide HCl 10 mg Q8HR GT 02/07/25 14:00 02/09/25 21:08 10 MG Ertapenem 0.5 gm/ Sodium Chloride 50 ml @ 100 mls/hr HS IV 02/07/25 22:00 02/09/25 21:12 100 MLS/HR Hydralazine HCl 10 mg Q6HP PRN IV 02/07/25 18:15 02/07/25 23:32 10 MG Vancomycin HCl 0 ml @ 0 mls/hr PER PHARMACY IV 02/08/25 18:30 Hydrocortisone Sodium Succinate 100 mg Q12HR IV 02/09/25 22:00 02/09/25 21:08 100 MG Midodrine 10 mg TID@0600,1200,1800 PO 02/09/25 12:00 02/09/25 18:24 10 MG Laboratory Results Laboratory Tests 02/09/25 03:00 Chemistry Test 02/09/25 03:00 Calcium Level 8.5 mg/dL (8.7-10.4) L Magnesium Level 2.2 mg/dL (1.6-2.6) Urinalysis Test 01/10/25 09:18 Urine Color Yellow (Yellow) Urine Clarity Turbid (Clear) H Urine pH 6.5 (5.0-9.0) Urine Specific [place] 1.019 (1.001-1.035) Urine Protein 2+ (Negative) H Urine Ketones Negative (Negative) Urine Blood Negative /uL (Negative) Urine Nitrite Negative (Negative) Urine Bilirubin Negative (Negative) Urine Urobilinogen Normal mg/dL (Negative) Urine Leukocyte Esterase Trace /uL (Negative) Urine RBC 7 /hpf (0 - 4) Urine Microscopic WBC 4 /HPF (0-5) Urine Squamous Epithelial Cells Few /hpf (<5) Urine Bacteria None seen /hpf (None Seen) Urine Yeast (Budding) Moderate /hpf (None Seen) Urine Glucose 1+ mg/dL (Normal) H Blood Gas Results Test 02/09/25 07:18 Arterial Blood pH 7.353 (7.350-7.450) FiO2 % 60.0 Microbiology Microbiology Date/Time Source Procedure Growth Status 02/08/25 13:20 Blood Blood Culture - Preliminary NO GROWTH AFTER 24 HOURS OF INCUBATION. Resulted 02/01/25 05:00 Catheter Tip Aerobic Culture - Final Complete 01/24/25 10:06 Bronchial Washings Gram Stain - Final Complete 01/24/25 10:06 Bronchial Washings Respiratory Culture - Final Complete 01/10/25 09:18 Voided Urine Urine Culture - Final Presumptive Sully albicans Yeast, not Sully albicans Complete Assessment/Plan Assessment/Plan Impression: Acute hypoxic respiratory failure On mechanical ventilator Acute CHF exacerbation End-stage renal disease, on hemodialysis Osteomyelitis DVT, left upper extremity Overweight Events: Remains on vent support On AC mode; RR 24, VT 400, PEEP 8, FiO2 40% Improved FIO2 requirements Patient noted to desaturate with turns. ABG reviewed, compensated. CXR today shows devices in place; bilateral consolidation which may reflect multifocal pneumonia similar to prior study. Small left pleural effusion. Hemodialysis per Nephrology Monitor for blood pressure drops during hemodialysis. Amiodarone drip for atrial fibrillation with rapid ventricular response - transition to amiodarone PO. Pressors for hemodynamic support Levophed 6 mcg/min Titrate to keep MAP above 65 mmHg/SBP above 90 mmHg. Increased pressor requirements - Taper pressors as tolerated Monitor blood pressure Midodrine TID for BP support Follow up Cardiology recs. Of note, patient had a cardiopulmonary arrest on 02/02/25 for 1 minute, ROSC achieved. Heparin drip due to left upper extremity DVT - currently on hold. Monitor hemoglobin - trended up to 10.2 g/dL. Transfuse if less than 7.0 g/dL. On Lovenox SC. Continue bronchodilators. Continue antibiotics - Invanz/vancomycin Follow up repeat blood cultures Started hydrocortisone Hemodialysis per Nephrology Follow up Nephrology recommendations Monitor renal function Monitor electrolytes. Supplement as necessary. Monitor platelets - currently 73 K Accu-Cheks, ISS. Tube feeds for nutritional support DTI sacrum - wound care. CPAP daily if appropriate, as tolerated. Note, patient with overall poor prognosis High likelihood of demise. Left upper extremity venous duplex revealed DVT in left axillary and brachial veins. Labs and imaging reviewed. Rest of plan as noted below. Plan: s/p intubation on mechanical ventilator. On AC mode; RR 24, VT 400, PEEP 8, FiO2 40% S/p bronchoscopy on 11/24/24 - Results from bronchial washings show no growth. Titrate FIO2 to keep O2 saturation above 90%. VAP bundle. Daily ABG and CXR while intubated Continue bronchodilators. Continue antibiotics. Follow up cultures. IV steroids Pressors for hemodynamic support Titrate to keep MAP above 65 mmHg/SBP above 90 mmHg. Accu-Cheks, ISS Wound care. Monitor H&H. Hemodialysis per Nephrology Monitor renal function Monitor electrolytes. Supplement as necessary. Monitor ins and outs. Maintain euvolemia. GI prophylaxis. DVT prophylaxis. Prognosis: Poor given patient's multiple co-morbidities. Condition: Critical Rest of plan per hospitalist and other consultants. A total of 35 minutes of critical care time was spent reviewing the patient record, examining the patient, making a diagnostic and therapeutic plan, discussing this plan with the medical personnel, following up on diagnostic studies and following the patient for clinical stability excluding any and all procedures. At least 50% of this time was spent in direct, [id number] contact. Thank you, Dr. Bowie, for allowing me to participate in this patient's care. Further recommendations will depend on the patient's clinical course. Please do not hesitate to contact me if you have any questions or concerns. This medical document was created using an electronic medical record system with [employer] system. Although these documentations are being carefully reviewed, there may still be some phonetic and typographical changes. The errors are purely typographical, due to imperfection on the software program, and do not reflect any compromise in the patient's medical care. Plan discussed with: Other (ALBERTINA Chow) Visit Coding Pulmonary Billing Provider: ALCON GUTHRIE MD Date of Service if different f: Feb 09, 2025 Common Visit Codes: [id number] INP/OBS CARE(HIGH), [id number] CARE 30-74 MIN ALCON GUTHRIE MD Feb 09, 2025 23:04
[2025-02-10] VITALS (112 sets, daily range): BP systolic 85–196; BP diastolic 13–81; PULSE 62–141; RESP 12–35; TEMP 97.3–99.6; O2SAT 92–100
[2025-02-10 03:25] LABS: Hematocrit 31.3 % (36.0-46.0); Hemoglobin 10.2 g/dL (12.2-16.2); Mean Corpuscular Hemoglobin 30.4 pg (28.0-32.0); Mean Corpuscular Volume 93.0 fL (80.0-100.0); Nucleated Red Blood Cells % 0.2 %
[2025-02-10 03:36] LABS: Chloride 104 mmol/L (98-107); Potassium 4.7 mmol/L (3.5-5.1); Sodium 141 mmol/L (136-145)
[2025-02-10 03:37] LABS: Anion Gap 15 (5-15); Carbon Dioxide 22 mmol/L (20-31)
[2025-02-10 03:38] LABS: Calcium 8.4 mg/dL (8.7-10.4)
[2025-02-10 03:43] LABS: BUN/Creatinine Ratio 16.8 (10.0-20.0)
[2025-02-10 03:44] LABS: Glucose 138 mg/dL (74-106)
[2025-02-10 03:45] LABS: Blood Urea Nitrogen 66 mg/dL (9-23)
[2025-02-10] MEDS: NOREPINEPHRINE BITARTRATE 32 MG in SODIUM CHL 0.9% 218 ML IV SCH (03:51)
--- NOTE | 2025-02-10 05:56 | DVH ---
CHEST RADIOGRAPH Indication: pna Technique: Single frontal view of the chest was obtained COMPARISON: XY CHEST PORTABLE on DOS: 02/09/25, XY CHEST PORTABLE on DOS: 02/08/25, XY CHEST PORTABLE on DOS: 02/07/25, XY CHEST PORTABLE on DOS: 02/05/25, XY CHEST PORTABLE on DOS: 02/04/25 FINDINGS: Lines and Tubes: Unchanged. Left anterior chest wall cardiac pacing device. Lungs: Grossly stable appearing multifocal patchy bilateral pulmonary airspace disease with mild consolidative features. Small left pleural effusion. No pneumothorax. Cardiomediastinal contours: Cardiomegaly. Bones: Unremarkable IMPRESSION: 1. Stable multifocal patchy bilateral pulmonary airspace disease with mild consolidative features. 2. Small left pleural effusion. 3. Cardiomegaly. 4. Lines and tubes unchanged.
[2025-02-10 07:44] LABS: Base Excess -5.4 mmol/L (-2.0-3.0)
--- NOTE | 2025-02-10 08:22 | DVHPN2 ---
Reviewed: Care Plan, H&P Changes from previous H/P or p: No Changes General: Per HPI Objective Vitals Vital Signs Date Time Temp Pulse Resp B/P (MAP) Pulse Ox O2 Delivery O2 Flow Rate FiO2 02/10/25 08:00 40 02/10/25 08:00 97.5 66 21 111/23 (52) 99 97.5 120/44 (69) 02/10/25 08:00 Mechanical Ventilator+ Intake/Output Intake and Output 02/10/25 07:00 Intake Total 668.195 ml Output Total 0 ml Balance 668.195 ml Intake Oral 180 ml IV Total 395.195 ml Tube Feeding 93 ml Output Urine Total 0 ml Stool Total 0 ml General Appearance: mild distress, Other (Intubated and sedated) HEENT: Atraumatic, PERRLA Lungs: Clear to auscultation, Other (Mechanical ventilation.) Cardiovascular: Normal S1, Normal S2, Other (Patient now in sinus rhythm, heart rate 65) Abdomen: Normal bowel sounds, Soft, No tenderness, No hepatospenomegaly Musculoskeletal: Other (Unable to assess) Extremities: No clubbing, No cyanosis, No edema, Normal pulses, No tenderness/swelling Neuro: Other (Unable to assess) Skin: Dry, Intact, Wounds (See nurse notes and pictures), Other (Right foot necrosis) Psych/Mental Status: Other (Unable to assess) Medications Current Medications Medications Dose Ordered Sig/Seth Route Start Time Stop Time Status Last Admin Dose Admin Acetaminophen 325 mg Q4HP PRN PO 01/10/25 00:30 02/08/25 12:57 325 MG Ondansetron HCl 4 mg Q4HP PRN IV 01/10/25 00:30 01/20/25 16:19 4 MG Atorvastatin Calcium 40 mg HS PO 01/10/25 22:00 02/09/25 21:09 40 MG Levothyroxine Sodium 125 mcg QAM@0600 PO 01/11/25 06:00 02/10/25 05:04 125 MCG Sodium Chloride 10 ml QSHIFT@ IV 01/12/25 22:00 02/10/25 08:01 10 ML Dextrose 50 ml UD PRN IV 01/14/25 14:15 02/07/25 21:05 50 ML Fluconazole 100 mg POSTDI PRN PO 01/15/25 12:45 Cancel Albumin Human 100 ml @ 100 mls/hr WD PRN IV 01/18/25 21:00 02/03/25 11:36 100 MLS/HR Albuterol 2.5 mg Q4HPRN PRN NEB 01/20/25 16:00 02/09/25 14:24 2.5 MG Vancomycin HCl 0 ml @ 0 mls/hr PER PHARMACY IV 01/21/25 12:15 Cancel Fentanyl Citrate 250 ml @ 2.5 mls/hr Q24H IV 01/23/25 13:45 02/09/25 15:01 7.5 MLS/HR Enteral Nutritional Formula 1,000 ml 30ML/HR GT 01/23/25 18:00 02/09/25 21:09 1,000 ML Pantoprazole Sodium 40 mg BID IV 01/23/25 22:00 02/10/25 08:01 40 MG Sodium Chloride 1,000 ml @ 200 mls/hr Q5H IV 01/25/25 11:00 Cancel Amiodarone HCl 100 mg Q12HR PO 01/25/25 22:00 02/09/25 21:09 100 MG Midazolam HCl 100 ml @ 1 mls/hr Q24H IV 01/25/25 18:00 02/10/25 05:03 4 MLS/HR Diagnostic Test (Pha) 1 strip IQ4HR 01/28/25 12:00 02/10/25 08:01 1 STRIP Insulin Human Regular IQ4HR SC 01/28/25 12:00 02/10/25 03:55 2 UNITS Levalbuterol HCl 1.25 mg Q4HR NEB 02/02/25 14:30 02/10/25 06:36 1.25 MG Ipratropium [place] 0.5 mg Q4HR NEB 02/02/25 18:00 02/10/25 06:36 0.5 MG Heparin Sodium/ Dextrose 250 ml @ 6 mls/hr Q24H IV 02/03/25 14:00 Hold Enoxaparin Sodium 70 mg DAILY SC 02/04/25 15:30 02/08/25 12:58 70 MG Amiodarone HCl 250 ml @ 16.66 mls/ hr Q15H1M IV 02/05/25 16:15 02/06/25 22:17 16.66 MLS/HR Metoclopramide HCl 10 mg Q8HR GT 02/07/25 14:00 02/10/25 05:04 10 MG Ertapenem 0.5 gm/ Sodium Chloride 50 ml @ 100 mls/hr HS IV 02/07/25 22:00 02/09/25 21:12 100 MLS/HR Hydralazine HCl 10 mg Q6HP PRN IV 02/07/25 18:15 02/07/25 23:32 10 MG Vancomycin HCl 0 ml @ 0 mls/hr PER PHARMACY IV 02/08/25 18:30 Hydrocortisone Sodium Succinate 100 mg Q12HR IV 02/09/25 22:00 02/10/25 08:01 100 MG Midodrine 10 mg TID@0600,1200,1800 PO 02/09/25 12:00 02/10/25 05:04 10 MG Norepinephrine Bitartrate 32 mg/ Sodium Chloride 250 ml @ 0.469 mls/ hr Q24H IV 02/10/25 03:30 02/10/25 03:51 1.875 MLS/HR Laboratory Results Laboratory Tests 02/10/25 02:42 Chemistry Test 02/10/25 02:42 Calcium Level 8.4 mg/dL (8.7-10.4) L Urinalysis Test 01/10/25 09:18 Urine Color Yellow (Yellow) Urine Clarity Turbid (Clear) H Urine pH 6.5 (5.0-9.0) Urine Specific [place] 1.019 (1.001-1.035) Urine Protein 2+ (Negative) H Urine Ketones Negative (Negative) Urine Blood Negative /uL (Negative) Urine Nitrite Negative (Negative) Urine Bilirubin Negative (Negative) Urine Urobilinogen Normal mg/dL (Negative) Urine Leukocyte Esterase Trace /uL (Negative) Urine RBC 7 /hpf (0 - 4) Urine Microscopic WBC 4 /HPF (0-5) Urine Squamous Epithelial Cells Few /hpf (<5) Urine Bacteria None seen /hpf (None Seen) Urine Yeast (Budding) Moderate /hpf (None Seen) Urine Glucose 1+ mg/dL (Normal) H Blood Gas Results Test 02/10/25 07:00 Arterial Blood pH 7.335 (7.350-7.450) FiO2 % 40.0 Microbiology Microbiology Date/Time Source Procedure Growth Status 02/08/25 13:20 Blood Blood Culture - Preliminary NO GROWTH AFTER 24 HOURS OF INCUBATION. Resulted 02/01/25 05:00 Catheter Tip Aerobic Culture - Final Complete 01/24/25 10:06 Bronchial Washings Gram Stain - Final Complete 01/24/25 10:06 Bronchial Washings Respiratory Culture - Final Complete 01/10/25 09:18 Voided Urine Urine Culture - Final Presumptive Sully albicans Yeast, not Sully albicans Complete Labs and/or images reviewed: Labs reviewed by me, Image(s) reviewed by me Assessment/Plan Assessment/Plan 02/07: Patient converted to sinus rhythm. Now off of vasopressor therapy. Patient has also had sedation vacation. FiO2 at 35%, peep of five. Plans for hemodialysis today. Recommend CPAP trial once neurologically and hemodynamically appropriate. Continue amiodarone infusion until hemodialysis has completed 02/08: 64 female she has diabetic ESRD, AFib. Patient is septic from right lower extremity osteomyelitis. Podiatry unable to take to OR due to unstable vitals. Levophed had to be re-initiated this morning. Patient is ESRD anuric, getting dialysis yesterday was the 1st good session because no Levophed was being needed, they did use Levophed during the dialysis. 2 L was removed. Patient looks euvolemic, maybe be dry, we will have to reassess with ultrasound IVC. Patient is growing ESBL, on Invanz. Suspicion requiring vasopressor again we will repeat blood culture. Pulmonology monitoring vent. Hydrocortisone was stopped, since vasopressors still be needed we will likely need to restart hydrocortisone and we will consider midodrine.. Patient has been intubated for few days, Glucerna we will restart, continue monitoring residuals. Patient is full code family stays by all the time 02/09: Continues to require Levophed, we will start monitoring in hydrocortisone. Blood cultures pending. This is low, unknown reason, no history of alcohol. We will get hit panel. We will discuss with Podiatry. Possible if patient is stabilized by Wednesday apps treat the source of infection see if patient recovers thereafter. 02/10: Unfortunately still on Levophed quad at 1 mcg per minute. Continue midodrine and hydrocortisone, hope for coming off of Levophed, we will get CT leg right lower extremity per recommendation of Podiatry. Can possibly give platelets if needs to go to OR. Continue present management. Impression: -septic shock -right foot osteomyelitis -peripheral arterial disease -acute hypoxic respiratory failure -acute on chronic systolic and diastolic heart failure -end-stage renal disease with hemodialysis -diabetes mellitus Plan: -continue current ventilator settings. Wean FiO2 to keep saturation greater than 92% -pulmonology consultation: Recommendations reviewed. Assess appropriateness for weaning trial. If patient unsuccessful, we will recommend tracheostomy. -nephrology consultation: Recommendations reviewed. Plans for HD today -cardiology consultation: Recommendations reviewed -regular insulin sliding scale -repeat labs, ABG, and chest x-ray in a.m. -long discussion made with the patient's family yesterday afternoon regarding plan of care which includes possibility of tracheostomy and PEG tube placement. Code status continues to be full code at this time Critical care time spent with patient discussing and formulating plan of care: 90 minutes. This does not include time spent performing procedures. Plan discussed with: Patient My Orders Orders - STEPHANY ASHRAF MD Procedure Category Date Status Time Hydrocortisone PHA 02/09/25 In Process Succinate Inj 22:00 Midodrine Tablet PHA 02/09/25 In Process (Proamatine Tablet) 12:00 Date of Service: Feb 10, 2025 Billing Provider: STEPHANY ASHRAF MD Common Visit Codes: [id number] CARE 30-74 MIN STEPHANY ASHRAF MD Feb 10, 2025 08:22
--- NOTE | 2025-02-10 11:28 | DVH ---
EXAM: CT CT R TIB FIB WO CONTRAST HISTORY: INTERVAL EVALUATION OF OSTEOMYELITIS COMPARISON: CT CT R FOOT WO CONTRAST on DOS: 01/09/25 TECHNIQUE: Noncontrast axial CT images of the right hip were performed. Sagittal and coronal reformatted images were obtained. This CT exam was performed using one or more of the following dose reduction techniques: Automated exposure control, adjustment of the mA and/or kV according to patient size, or use of iterative reconstruction technique. Radiation Dose Information: CT Dose: CTDI volume is 25.21 mGy. Dose-length product is 1526.2 mGy*cm FINDINGS: There is a effusion present of the knee joint. Edema in the anterior muscular compartments of the mid foreleg. No cortical destruction of bone. No periosteal reaction. IMPRESSION: 1. There is no CT evidence at this time of osteomyelitis of the tibia or fibula 2. Myositis of the anterior muscular compartment of the foreleg 3. Incidental note made of a knee joint effusion and extensive vascular calcification in the soft tissues.
--- NOTE | 2025-02-10 11:32 | DVH ---
EXAM: CT CT R FEMUR WO CONTRAST HISTORY: Interval Evaluation of Osteomyelitis COMPARISON: CT CT R TIB FIB WO CONTRAST on DOS: 02/10/25, CT CT R FOOT WO CONTRAST on DOS: 01/09/25 TECHNIQUE: Noncontrast axial CT images of the right hip were performed. Sagittal and coronal reformatted images were obtained. This CT exam was performed using one or more of the following dose reduction techniques: Automated exposure control, adjustment of the mA and/or kV according to patient size, or use of iterative reconstruction technique. Radiation Dose Information: CT Dose: CTDI volume is 25.15 mGy. Dose-length product is 1227.2 mGy*cm FINDINGS: There is no cortical destruction of bone. No periosteal reaction. There is edema in the lateral and posterior soft tissue compartments of the thigh. There is a joint effusion at the knee joint. Degenerative changes of the knee joint. Extensive vascular calcifications in the soft tissues IMPRESSION: 1. No CT evidence at this time of osteomyelitis of the right femur. There is soft tissue swelling present
--- NOTE | 2025-02-10 11:50 | DVHPN2 ---
Progress Note Date Seen: Feb 10, 2025 Resident Creating Document: MERLY THAKUR RESIDENT Medical Necessity Reason Pt with a Central, PICC or Fol: Yes The following are medically ne: Central Line, [place] Catheter Subjective Review of Systems Seen and examined at bedside Gastric Residual volumes about 120 mL overnight Continues to be on ventilator with a high oxygenation requirements Objective vital signs Vital Sign Date Time Temp Pulse Resp B/P (MAP) Pulse Ox O2 Delivery O2 Flow Rate FiO2 02/10/25 11:03 63 24 97 02/10/25 10:40 108/45 (66) 40 02/10/25 09:38 Mechanical Ventilator+ 02/10/25 08:00 97.5 97.5 Total Intake and Output 02/09/25 02/09/25 02/10/25 15:00 23:00 07:00 Intake Total 106.504 ml 346.566 ml 226.625 ml Output Total 0 ml 0 ml Balance 106.504 ml 346.566 ml 226.625 ml medications Current Medications Medications Dose Ordered Sig/Seth Route Start Time Stop Time Status Last Admin Dose Admin Acetaminophen 325 mg Q4HP PRN PO 01/10/25 00:30 02/08/25 12:57 325 MG Ondansetron HCl 4 mg Q4HP PRN IV 01/10/25 00:30 01/20/25 16:19 4 MG Atorvastatin Calcium 40 mg HS PO 01/10/25 22:00 02/09/25 21:09 40 MG Levothyroxine Sodium 125 mcg QAM@0600 PO 01/11/25 06:00 02/10/25 05:04 125 MCG Sodium Chloride 10 ml QSHIFT@10, IV 01/12/25 22:00 02/10/25 08:01 10 ML Dextrose 50 ml UD PRN IV 01/14/25 14:15 02/07/25 21:05 50 ML Fluconazole 100 mg POSTDI PRN PO 01/15/25 12:45 Cancel Albumin Human 100 ml @ 100 mls/hr WD PRN IV 01/18/25 21:00 02/03/25 11:36 100 MLS/HR Albuterol 2.5 mg Q4HPRN PRN NEB 01/20/25 16:00 02/09/25 14:24 2.5 MG Vancomycin HCl 0 ml @ 0 mls/hr PER PHARMACY IV 01/21/25 12:15 Cancel Fentanyl Citrate 250 ml @ 2.5 mls/hr Q24H IV 01/23/25 13:45 02/09/25 15:01 7.5 MLS/HR Enteral Nutritional Formula 1,000 ml 30ML/HR GT 01/23/25 18:00 02/09/25 21:09 1,000 ML Pantoprazole Sodium 40 mg BID IV 01/23/25 22:00 02/10/25 08:01 40 MG Sodium Chloride 1,000 ml @ 200 mls/hr Q5H IV 01/25/25 11:00 Cancel Amiodarone HCl 100 mg Q12HR PO 01/25/25 22:00 02/09/25 21:09 100 MG Midazolam HCl 100 ml @ 1 mls/hr Q24H IV 01/25/25 18:00 02/10/25 05:03 4 MLS/HR Diagnostic Test (Pha) 1 strip IQ4HR 01/28/25 12:00 02/10/25 11:35 1 STRIP Insulin Human Regular IQ4HR SC 01/28/25 12:00 02/10/25 11:34 3 UNITS Levalbuterol HCl 1.25 mg Q4HR NEB 02/02/25 14:30 02/10/25 11:03 1.25 MG Ipratropium [place] 0.5 mg Q4HR NEB 02/02/25 18:00 02/10/25 11:03 0.5 MG Heparin Sodium/ Dextrose 250 ml @ 6 mls/hr Q24H IV 02/03/25 14:00 Hold Enoxaparin Sodium 70 mg DAILY SC 02/04/25 15:30 02/08/25 12:58 70 MG Amiodarone HCl 250 ml @ 16.66 mls/ hr Q15H1M IV 02/05/25 16:15 02/06/25 22:17 16.66 MLS/HR Metoclopramide HCl 10 mg Q8HR GT 02/07/25 14:00 02/10/25 05:04 10 MG Ertapenem 0.5 gm/ Sodium Chloride 50 ml @ 100 mls/hr HS IV 02/07/25 22:00 02/09/25 21:12 100 MLS/HR Hydralazine HCl 10 mg Q6HP PRN IV 02/07/25 18:15 02/07/25 23:32 10 MG Vancomycin HCl 0 ml @ 0 mls/hr PER PHARMACY IV 02/08/25 18:30 Hydrocortisone Sodium Succinate 100 mg Q12HR IV 02/09/25 22:00 02/10/25 08:01 100 MG Midodrine 10 mg TID@0600,1200,1800 PO 02/09/25 12:00 02/10/25 05:04 10 MG Norepinephrine Bitartrate 32 mg/ Sodium Chloride 250 ml @ 0.469 mls/ hr Q24H IV 02/10/25 03:30 02/10/25 03:51 1.875 MLS/HR Examination Gen - no pallor, no scleral icterus Skin - Patients skin is warm and dry. HEENT - normocephalic, atraumatic, dry mucous membranes. Neck - supple, no lymphadenopathy Pulmonary - improved breath sounds bilaterally cardiovascular - regular S1,S2 heard GI - soft abdomen. Bowel sounds hypoactive. Neurological - sedated and on mechanical ventilation laboratory and microbiology Laboratory Tests 02/10/25 02:42 Test 02/10/25 02:42 Range/Units Serum Glucose 138 H 74-106 mg/dL Microbiology Date/Time Source Procedure Growth Status 02/08/25 13:20 Blood Blood Culture - Preliminary NO GROWTH AFTER 24 HOURS OF INCUBATION. Resulted 02/01/25 05:00 Catheter Tip Aerobic Culture - Final Complete 01/24/25 10:06 Bronchial Washings Gram Stain - Final Complete 01/24/25 10:06 Bronchial Washings Respiratory Culture - Final Complete 01/10/25 09:18 Voided Urine Urine Culture - Final Presumptive Sully albicans Yeast, not Sully albicans Complete Problem List/Assessment/Plan Problem List/Assessment/Plan Assessment Possible GI bleed Sepsis likely from osteomyelitis Acute on chronic systolic heart failure Thrombocytopenia Coagulopathy PAT on CKD likely due to VMN Left upper extremity DVT Cardiopulmonary arrest s/p ROSC Plan - Protonix 40 mg IV b.i.d. - once the patient is hemodynamically stable, she may benefit from EGD - watch H&H, keep hemoglobin above 7 - residual volumes less than 50 mL continue on tube feedings - on therapeutic Lovenox because of atrial fibrillation, increased risk of GI bleeding Poor prognosis Plan discussed with Dr. Soto Plan discussed with: Other (ALBERTINA Mccormack) Dietary Evaluation Review Comments: Nutrition Recommendation 1) CCHO 60gm + renal standard diet 2) Nephro-santosh 1 tab daily 3) Lexx 1 pk daily 4) Monitor PO intake, lab values, weight trend, and I/O Expected Outcomes/Goals: To meet >75% estimated needs Wound to improve Fu 3-5 days CC Plasma Assessment Blood Product Administration S: [id number] MERLY THAKUR RESIDENT Feb 10, 2025 11:50
[2025-02-10] MEDS: HEPARIN 1,000 UNITS/ml 1ML VIAL IV ONE (13:00)
[2025-02-10] MEDS: METOPROLOL TARTRATE 25 MG TAB PO ONE (17:57)
--- NOTE | 2025-02-10 21:41 | DVHPN2 ---
Consult Progress Note Objective vital signs Vital Sign Date Time Temp Pulse Resp B/P (MAP) Pulse Ox O2 Delivery O2 Flow Rate FiO2 02/10/25 20:03 86 24 129/47 (74) 98 40 02/10/25 20:00 99.6 99.6 02/10/25 17:36 Mechanical Ventilator+ Total Intake and Output 02/09/25 02/09/25 02/10/25 15:00 23:00 07:00 Intake Total 106.504 ml 346.566 ml 226.625 ml Output Total 0 ml 0 ml Balance 106.504 ml 346.566 ml 226.625 ml medications Current Medications Medications Dose Ordered Sig/Seth Route Start Time Stop Time Status Last Admin Dose Admin Acetaminophen 325 mg Q4HP PRN PO 01/10/25 00:30 02/08/25 12:57 325 MG Ondansetron HCl 4 mg Q4HP PRN IV 01/10/25 00:30 01/20/25 16:19 4 MG Atorvastatin Calcium 40 mg HS PO 01/10/25 22:00 02/09/25 21:09 40 MG Levothyroxine Sodium 125 mcg QAM@0600 PO 01/11/25 06:00 02/10/25 05:04 125 MCG Sodium Chloride 10 ml QSHIFT@10,22 IV 01/12/25 22:00 02/10/25 08:01 10 ML Dextrose 50 ml UD PRN IV 01/14/25 14:15 02/07/25 21:05 50 ML Fluconazole 100 mg POSTDI PRN PO 01/15/25 12:45 Cancel Albumin Human 100 ml @ 100 mls/hr WD PRN IV 01/18/25 21:00 02/03/25 11:36 100 MLS/HR Albuterol 2.5 mg Q4HPRN PRN NEB 01/20/25 16:00 02/09/25 14:24 2.5 MG Vancomycin HCl 0 ml @ 0 mls/hr PER PHARMACY IV 01/21/25 12:15 Cancel Fentanyl Citrate 250 ml @ 2.5 mls/hr Q24H IV 01/23/25 13:45 02/09/25 15:01 7.5 MLS/HR Enteral Nutritional Formula 1,000 ml 30ML/HR GT 01/23/25 18:00 02/09/25 21:09 1,000 ML Pantoprazole Sodium 40 mg BID IV 01/23/25 22:00 02/10/25 08:01 40 MG Sodium Chloride 1,000 ml @ 200 mls/hr Q5H IV 01/25/25 11:00 Cancel Amiodarone HCl 100 mg Q12HR PO 01/25/25 22:00 02/10/25 11:57 100 MG Midazolam HCl 100 ml @ 1 mls/hr Q24H IV 01/25/25 18:00 02/10/25 05:03 4 MLS/HR Diagnostic Test (Pha) 1 strip IQ4HR 01/28/25 12:00 02/10/25 16:05 1 STRIP Insulin Human Regular IQ4HR SC 01/28/25 12:00 02/10/25 11:34 3 UNITS Levalbuterol HCl 1.25 mg Q4HR NEB 02/02/25 14:30 02/10/25 18:07 1.25 MG Ipratropium [place] 0.5 mg Q4HR NEB 02/02/25 18:00 02/10/25 18:07 0.5 MG Heparin Sodium/ Dextrose 250 ml @ 6 mls/hr Q24H IV 02/03/25 14:00 Hold Enoxaparin Sodium 70 mg DAILY SC 02/04/25 15:30 02/08/25 12:58 70 MG Amiodarone HCl 250 ml @ 16.66 mls/ hr Q15H1M IV 02/05/25 16:15 02/06/25 22:17 16.66 MLS/HR Metoclopramide HCl 10 mg Q8HR GT 02/07/25 14:00 02/10/25 12:02 10 MG Ertapenem 0.5 gm/ Sodium Chloride 50 ml @ 100 mls/hr HS IV 02/07/25 22:00 02/09/25 21:12 100 MLS/HR Hydralazine HCl 10 mg Q6HP PRN IV 02/07/25 18:15 02/07/25 23:32 10 MG Vancomycin HCl 0 ml @ 0 mls/hr PER PHARMACY IV 02/08/25 18:30 Hydrocortisone Sodium Succinate 100 mg Q12HR IV 02/09/25 22:00 02/10/25 08:01 100 MG Midodrine 10 mg TID@0600,1200,1800 PO 02/09/25 12:00 02/10/25 17:39 10 MG Norepinephrine Bitartrate 32 mg/ Sodium Chloride 250 ml @ 0.469 mls/ hr Q24H IV 02/10/25 03:30 02/10/25 03:51 1.875 MLS/HR Metoprolol Tartrate 25 mg BID PO 02/11/25 10:00 Future Hold laboratory and microbiology Laboratory Tests 02/10/25 02:42 Test 02/10/25 02:42 Range/Units Serum Glucose 138 H 74-106 mg/dL Problem List/Assessment/Plan Problem List/Assessment/Plan influenza a, covid, rsv negative BAL culture and blood cultures negative mrsa nares negative levophed ongoing and high vent needs = levophed 2, fio2 30%, on heparin [id number] weaned cxr with extensive bilateral airspace disease, some consolidative features present. Plans: copd and chf exacerbation per cardiology and pulmonology team consider CT R foot to evaluate for abscess or hematoma when more clinically stable 6 weeks ertapenem anticipated, EOT date is 02/28/25. dialysis as tolerated, UOP is 0 maps>65 Dietary Evaluation Review Comments: Nutrition Recommendation 1) CCHO 60gm + renal standard diet 2) Nephro-santosh 1 tab daily 3) Lexx 1 pk daily 4) Monitor PO intake, lab values, weight trend, and I/O Expected Outcomes/Goals: To meet >75% estimated needs Wound to improve Fu 3-5 days CC Plasma Assessment Blood Product Administration S: [id number] CONY TAYLOR MD Feb 10, 2025 21:41
[2025-02-10] MEDS ORDERED: METOPROLOL TARTRATE 25 MG TAB PO SCH (22:00)
[2025-02-10] MEDS: VANCOMYCIN 750MG KIT 100 ML IV ONE (22:31)
[2025-02-10] MEDS: EPOETIN ALFA-EPBX 4,000 UNIT/ML VIAL SC ONE (22:32)
--- NOTE | 2025-02-10 22:50 | DVHPN2 ---
[facility] DOS: 02/10/2025 Patient seen and examined at bedside. Sedated, intubated on mechanical ventilator. Overnight events reviewed. Reviewed: Care Plan, H&P Changes from previous H/P or p: No Changes General: Per HPI Objective Vitals Vital Signs Date Time Temp Pulse Resp B/P (MAP) Pulse Ox O2 Delivery O2 Flow Rate FiO2 02/10/25 22:38 137/22 02/10/25 21:55 80 24 98 40 02/10/25 20:00 99.6 99.6 02/10/25 17:36 Mechanical Ventilator+ Intake/Output Intake and Output 02/10/25 07:00 Intake Total 679.695 ml Output Total 0 ml Balance 679.695 ml Intake Oral 180 ml IV Total 406.695 ml Tube Feeding 93 ml Output Urine Total 0 ml Stool Total 0 ml Exam Gen.: Patient lying in bed in medical ICU. Sedated, intubated on mechanical ventilator. Head: Normocephalic, atraumatic. Eyes: PERRLA. Ears: Normal external anatomy. Throat: Endotracheal tube and orogastric tube in place. Neck: Supple, trachea midline. Chest: Transmitted breath sounds bilaterally. Decreased air entry bilaterally. No wheezing. Bibasilar crackles. Cardiovascular: Positive S1, positive S2. Regular rate and rhythm. Abdomen: Positive bowel sounds in all 4 quadrants. Soft, nontender, nondistended. : Lofton in place. Normal external genitalia. Rectal: Deferred. Skin: Warm, dry. Right foot osteomyelitis. Extremities: 2+ radial pulses bilaterally. No lower extremity edema. Neuro: Sedated General Appearance: mild distress, Other (Intubated and sedated) HEENT: Atraumatic, PERRLA Lungs: Clear to auscultation, Other (Mechanical ventilation.) Cardiovascular: Normal S1, Normal S2, Other (Patient now in sinus rhythm, heart rate 65) Abdomen: Normal bowel sounds, Soft, No tenderness, No hepatospenomegaly Musculoskeletal: Other (Unable to assess) Extremities: No clubbing, No cyanosis, No edema, Normal pulses, No tenderness/swelling Neuro: Other (Unable to assess) Skin: Dry, Intact, Wounds (See nurse notes and pictures), Other (Right foot necrosis) Psych/Mental Status: Other (Unable to assess) Medications Current Medications Medications Dose Ordered Sig/Seth Route Start Time Stop Time Status Last Admin Dose Admin Acetaminophen 325 mg Q4HP PRN PO 01/10/25 00:30 02/08/25 12:57 325 MG Ondansetron HCl 4 mg Q4HP PRN IV 01/10/25 00:30 01/20/25 16:19 4 MG Atorvastatin Calcium 40 mg HS PO 01/10/25 22:00 02/10/25 22:35 40 MG Levothyroxine Sodium 125 mcg QAM@0600 PO 01/11/25 06:00 02/10/25 05:04 125 MCG Sodium Chloride 10 ml QSHIFT@10,22 IV 01/12/25 22:00 02/10/25 22:31 10 ML Dextrose 50 ml UD PRN IV 01/14/25 14:15 02/07/25 21:05 50 ML Fluconazole 100 mg POSTDI PRN PO 01/15/25 12:45 Cancel Albumin Human 100 ml @ 100 mls/hr WD PRN IV 01/18/25 21:00 02/03/25 11:36 100 MLS/HR Albuterol 2.5 mg Q4HPRN PRN NEB 01/20/25 16:00 02/09/25 14:24 2.5 MG Vancomycin HCl 0 ml @ 0 mls/hr PER PHARMACY IV 01/21/25 12:15 Cancel Fentanyl Citrate 250 ml @ 2.5 mls/hr Q24H IV 01/23/25 13:45 02/10/25 22:38 7.5 MLS/HR Enteral Nutritional Formula 1,000 ml 30ML/HR GT 01/23/25 18:00 02/10/25 22:41 1,000 ML Pantoprazole Sodium 40 mg BID IV 01/23/25 22:00 02/10/25 22:31 40 MG Sodium Chloride 1,000 ml @ 200 mls/hr Q5H IV 01/25/25 11:00 Cancel Amiodarone HCl 100 mg Q12HR PO 01/25/25 22:00 02/10/25 22:35 100 MG Midazolam HCl 100 ml @ 1 mls/hr Q24H IV 01/25/25 18:00 02/10/25 22:37 4 MLS/HR Diagnostic Test (Pha) 1 strip IQ4HR 01/28/25 12:00 02/10/25 22:32 1 STRIP Insulin Human Regular IQ4HR SC 01/28/25 12:00 02/10/25 11:34 3 UNITS Levalbuterol HCl 1.25 mg Q4HR NEB 02/02/25 14:30 02/10/25 21:55 1.25 MG Ipratropium [place] 0.5 mg Q4HR NEB 02/02/25 18:00 02/10/25 21:55 0.5 MG Heparin Sodium/ Dextrose 250 ml @ 6 mls/hr Q24H IV 02/03/25 14:00 Hold Enoxaparin Sodium 70 mg DAILY SC 02/04/25 15:30 02/08/25 12:58 70 MG Amiodarone HCl 250 ml @ 16.66 mls/ hr Q15H1M IV 02/05/25 16:15 02/06/25 22:17 16.66 MLS/HR Metoclopramide HCl 10 mg Q8HR GT 02/07/25 14:00 02/10/25 22:31 10 MG Ertapenem 0.5 gm/ Sodium Chloride 50 ml @ 100 mls/hr HS IV 02/07/25 22:00 02/10/25 22:33 100 MLS/HR Hydralazine HCl 10 mg Q6HP PRN IV 02/07/25 18:15 02/07/25 23:32 10 MG Vancomycin HCl 0 ml @ 0 mls/hr PER PHARMACY IV 02/08/25 18:30 Hydrocortisone Sodium Succinate 100 mg Q12HR IV 02/09/25 22:00 02/10/25 22:31 100 MG Midodrine 10 mg TID@0600,1200,1800 PO 02/09/25 12:00 02/10/25 17:39 10 MG Norepinephrine Bitartrate 32 mg/ Sodium Chloride 250 ml @ 0.469 mls/ hr Q24H IV 02/10/25 03:30 02/10/25 03:51 1.875 MLS/HR Metoprolol Tartrate 25 mg BID PO 02/11/25 10:00 Future Hold Laboratory Results Laboratory Tests 02/10/25 02:42 Chemistry Test 02/10/25 02:42 Calcium Level 8.4 mg/dL (8.7-10.4) L Urinalysis Test 01/10/25 09:18 Urine Color Yellow (Yellow) Urine Clarity Turbid (Clear) H Urine pH 6.5 (5.0-9.0) Urine Specific [place] 1.019 (1.001-1.035) Urine Protein 2+ (Negative) H Urine Ketones Negative (Negative) Urine Blood Negative /uL (Negative) Urine Nitrite Negative (Negative) Urine Bilirubin Negative (Negative) Urine Urobilinogen Normal mg/dL (Negative) Urine Leukocyte Esterase Trace /uL (Negative) Urine RBC 7 /hpf (0 - 4) Urine Microscopic WBC 4 /HPF (0-5) Urine Squamous Epithelial Cells Few /hpf (<5) Urine Bacteria None seen /hpf (None Seen) Urine Yeast (Budding) Moderate /hpf (None Seen) Urine Glucose 1+ mg/dL (Normal) H Blood Gas Results Test 02/10/25 07:00 Arterial Blood pH 7.335 (7.350-7.450) FiO2 % 40.0 Microbiology Microbiology Date/Time Source Procedure Growth Status 02/08/25 13:20 Blood Blood Culture - Preliminary NO GROWTH AFTER 48 HOURS OF INCUBATION. Resulted 02/01/25 05:00 Catheter Tip Aerobic Culture - Final Complete 01/24/25 10:06 Bronchial Washings Gram Stain - Final Complete 01/24/25 10:06 Bronchial Washings Respiratory Culture - Final Complete 01/10/25 09:18 Voided Urine Urine Culture - Final Presumptive Sully albicans Yeast, not Sully albicans Complete Assessment/Plan Assessment/Plan Impression: Acute hypoxic respiratory failure On mechanical ventilator Acute CHF exacerbation End-stage renal disease, on hemodialysis Osteomyelitis DVT, left upper extremity Overweight Events: Remains on vent support On AC mode; RR 24, VT 400, PEEP 8, FiO2 40% Improved FIO2 requirements Patient noted to desaturate with turns. ABG reviewed, notable for acidemia. CXR today shows devices in place; 1. Stable multifocal patchy bilateral pulmonary airspace disease with mild consolidative features. 2. Small left pleural effusion. 3. Cardiomegaly. CT of RLE demonstrates mild myositis. No CT evidence at this time of osteomyelitis of the right femur. Hemodialysis per Nephrology - HD this AM. Monitor for blood pressure drops during hemodialysis. Sedated on Versed, Fentanyl Pressors for hemodynamic support Levophed 4 mcg/min Titrate to keep MAP above 65 mmHg/SBP above 90 mmHg. Improved pressor requirements Taper pressors as tolerated Monitor blood pressure Midodrine TID for BP support Amiodarone drip for atrial fibrillation with rapid ventricular response - transition to amiodarone PO. Follow up Cardiology recs. Of note, patient had a cardiopulmonary arrest on 02/02/25 for 1 minute, ROSC achieved. Heparin drip due to left upper extremity DVT - currently on hold. Monitor hemoglobin Transfuse if less than 7.0 g/dL. On Lovenox SC. Continue bronchodilators. Continue antibiotics - vancomycin per Pharmacy Follow up repeat blood cultures Started hydrocortisone Hemodialysis per Nephrology Follow up Nephrology recommendations Monitor renal function Monitor electrolytes. Supplement as necessary. Monitor platelets - trended down to 64 K Accu-Cheks, ISS. Tube feeds for nutritional support DTI sacrum - wound care. Follow up with Podiatry CPAP daily if appropriate, as tolerated. Note, patient with overall poor prognosis High likelihood of demise. Left upper extremity venous duplex revealed DVT in left axillary and brachial veins. Labs and imaging reviewed. Rest of plan as noted below. Plan: s/p intubation on mechanical ventilator. On AC mode; RR 24, VT 400, PEEP 8, FiO2 40% S/p bronchoscopy on 11/24/24 - Results from bronchial washings show no growth. Titrate FIO2 to keep O2 saturation above 90%. VAP bundle. Daily ABG and CXR while intubated Continue bronchodilators. Continue antibiotics. Follow up cultures. IV steroids Pressors for hemodynamic support Titrate to keep MAP above 65 mmHg/SBP above 90 mmHg. Accu-Cheks, ISS Wound care. Monitor H&H. Hemodialysis per Nephrology Monitor renal function Monitor electrolytes. Supplement as necessary. Monitor ins and outs. Maintain euvolemia. GI prophylaxis. DVT prophylaxis. Prognosis: Poor given patient's multiple co-morbidities. Condition: Critical Rest of plan per hospitalist and other consultants. A total of 35 minutes of critical care time was spent reviewing the patient record, examining the patient, making a diagnostic and therapeutic plan, discussing this plan with the medical personnel, following up on diagnostic studies and following the patient for clinical stability excluding any and all procedures. At least 50% of this time was spent in direct, [id number] contact. Thank you, Dr. Bowie, for allowing me to participate in this patient's care. Further recommendations will depend on the patient's clinical course. Please do not hesitate to contact me if you have any questions or concerns. This medical document was created using an electronic medical record system with [employer] dictation system. Although these documentations are being carefully reviewed, there may still be some phonetic and typographical changes. The errors are purely typographical, due to imperfection on the software program, and do not reflect any compromise in the patient's medical care. Plan discussed with: Other (ALBERTINA Grissom) Visit Coding Pulmonary Billing Provider: ALCON GUTHRIE MD Date of Service if different f: Feb 10, 2025 Common Visit Codes: 76355-[id number] INP/OBS CARE(HIGH), 99575-[id number] CARE 30-74 MIN ALCON GUTHRIE MD Feb 10, 2025 22:50
[2025-02-11] VITALS (109 sets, daily range): BP systolic 85–197; BP diastolic 12–193; PULSE 58–81; RESP 16–27; TEMP 96.6–99.3; O2SAT 76–100
[2025-02-11 03:58] LABS: Hematocrit 27.8 % (36.0-46.0); Hemoglobin 9.2 g/dL (12.2-16.2); Mean Corpuscular Hemoglobin 30.9 pg (28.0-32.0); Mean Corpuscular Volume 93.4 fL (80.0-100.0); Nucleated Red Blood Cells % 0.0 %
[2025-02-11 04:23] LABS: Alanine Aminotransferase 39 U/L (7-40); Anion Gap 14 (5-15); BUN/Creatinine Ratio 13.8 (10.0-20.0); Calcium 9.5 mg/dL (8.7-10.4); Carbon Dioxide 25 mmol/L (20-31); Chloride 103 mmol/L (98-107); Magnesium 2.3 mg/dL (1.6-2.6); Potassium 4.1 mmol/L (3.5-5.1); Sodium 142 mmol/L (136-145); Total Protein 5.9 g/dL (5.7-8.2)
[2025-02-11 04:24] LABS: Albumin 3.5 g/dL (3.2-4.8)
[2025-02-11 04:37] LABS: Alkaline Phosphatase 134 U/L (46-116); Bilirubin, Total 1.2 mg/dL (0.2-1.0); Blood Urea Nitrogen 38 mg/dL (9-23); Glucose 135 mg/dL (74-106)
[2025-02-11 07:03] LABS: Base Excess -1.3 mmol/L (-2.0-3.0)
[2025-02-11 08:40] LABS: Anisocytosis Slight
[2025-02-11] MEDS ORDERED: METOPROLOL TARTRATE 25 MG TAB PO SCH (10:00)
--- NOTE | 2025-02-11 11:50 | DVHPN2 ---
Progress Note - Dictate Date Seen: Feb 11, 2025 Medical Necessity Reason Pt with a Central, PICC or Fol: Yes The following are medically ne: Central Line, [place] Catheter Subjective She is intubated sedated PEEP 8 FiO2 40 % Patient has CHF exacerbation respiratory failure, On HD schedule Patient was still on low-dose Levophed at 2 mics per hour No nausea vomiting abdominal pain or GI bleeding reported ; hemoglobin stable at 9.2, stool somewhat dark occult positive;rectal tube in place She has mild persistent elevation of liver enzymes; hepatitis panel was negative and DIEGO is pending She is tolerating tube feedings at 30 mL/hour ; patient had increased gastric residuals and she was started on IV Reglan vital signs Vital Sign Date Time Temp Pulse Resp B/P (MAP) Pulse Ox O2 Delivery O2 Flow Rate FiO2 02/11/25 11:32 67 24 148/50 (82) 100 35 02/11/25 09:32 Mechanical Ventilator+ 02/11/25 07:45 98.6 98.6 Total Intake and Output 02/10/25 02/10/25 02/11/25 15:00 23:00 07:00 Intake Total 92.0 ml 352.0 ml 192.0 ml Output Total 0 ml 75 ml Balance 92.0 ml 352.0 ml 117.0 ml medications Current Medications Medications Dose Ordered Sig/Seth Route Start Time Stop Time Status Last Admin Dose Admin Acetaminophen 325 mg Q4HP PRN PO 01/10/25 00:30 02/08/25 12:57 325 MG Ondansetron HCl 4 mg Q4HP PRN IV 01/10/25 00:30 01/20/25 16:19 4 MG Atorvastatin Calcium 40 mg HS PO 01/10/25 22:00 02/10/25 22:35 40 MG Levothyroxine Sodium 125 mcg QAM@0600 PO 01/11/25 06:00 02/11/25 05:27 125 MCG Sodium Chloride 10 ml QSHIFT@10,22 IV 01/12/25 22:00 02/11/25 07:32 10 ML Dextrose 50 ml UD PRN IV 01/14/25 14:15 02/07/25 21:05 50 ML Fluconazole 100 mg POSTDI PRN PO 01/15/25 12:45 Cancel Albumin Human 100 ml @ 100 mls/hr WD PRN IV 01/18/25 21:00 02/03/25 11:36 100 MLS/HR Albuterol 2.5 mg Q4HPRN PRN NEB 01/20/25 16:00 02/09/25 14:24 2.5 MG Vancomycin HCl 0 ml @ 0 mls/hr PER PHARMACY IV 01/21/25 12:15 Cancel Fentanyl Citrate 250 ml @ 2.5 mls/hr Q24H IV 01/23/25 13:45 02/10/25 22:38 7.5 MLS/HR Enteral Nutritional Formula 1,000 ml 30ML/HR GT 01/23/25 18:00 02/10/25 22:41 1,000 ML Pantoprazole Sodium 40 mg BID IV 01/23/25 22:00 02/11/25 07:31 40 MG Sodium Chloride 1,000 ml @ 200 mls/hr Q5H IV 01/25/25 11:00 Cancel Amiodarone HCl 100 mg Q12HR PO 01/25/25 22:00 02/11/25 07:32 100 MG Midazolam HCl 100 ml @ 1 mls/hr Q24H IV 01/25/25 18:00 02/10/25 22:37 4 MLS/HR Diagnostic Test (Pha) 1 strip IQ4HR 01/28/25 12:00 02/11/25 07:32 1 STRIP Insulin Human Regular IQ4HR SC 01/28/25 12:00 02/11/25 07:40 3 UNITS Levalbuterol HCl 1.25 mg Q4HR NEB 02/02/25 14:30 02/11/25 09:27 1.25 MG Ipratropium [place] 0.5 mg Q4HR NEB 02/02/25 18:00 02/11/25 09:27 0.5 MG Enoxaparin Sodium 70 mg DAILY SC 02/04/25 15:30 02/08/25 12:58 70 MG Amiodarone HCl 250 ml @ 16.66 mls/ hr Q15H1M IV 02/05/25 16:15 02/06/25 22:17 16.66 MLS/HR Metoclopramide HCl 10 mg Q8HR GT 02/07/25 14:00 02/11/25 05:36 10 MG Ertapenem 0.5 gm/ Sodium Chloride 50 ml @ 100 mls/hr HS IV 02/07/25 22:00 11/8/25 22:33 100 MLS/HR Hydralazine HCl 10 mg Q6HP PRN IV 02/07/25 18:15 02/07/25 23:32 10 MG Vancomycin HCl 0 ml @ 0 mls/hr PER PHARMACY IV 02/08/25 18:30 Hydrocortisone Sodium Succinate 100 mg Q12HR IV 02/09/25 22:00 02/11/25 07:31 100 MG Midodrine 10 mg TID@0600,1200,1800 PO 02/09/25 12:00 02/11/25 10:41 10 MG Norepinephrine Bitartrate 32 mg/ Sodium Chloride 250 ml @ 0.469 mls/ hr Q24H IV 02/10/25 03:30 02/10/25 03:51 1.875 MLS/HR Metoprolol Tartrate 25 mg BID PO 02/11/25 10:00 Hold objective General Appearance: Intubated sedated HEENT: Atraumatic, PERRLA Lungs: Clear to auscultation, Normal air movement Cardiovascular: Normal S1, Normal S2 Abdomen: Normal bowel sounds, Soft, No tenderness, No hepatospenomegaly Musculoskeletal: No c/c/e right foot dressing laboratory and microbiology Laboratory Tests 02/11/25 03:10 Test 02/11/25 03:10 Range/Units Serum Glucose 135 H 74-106 mg/dL CT Leg showed no osteomyelitis Problems(with codes): (1) Hospital-acquired pneumonia (2) Blood loss anemia (3) Septic shock (4) Elevated liver enzymes (5) Toe osteomyelitis, right (6) Toe fracture, right Prognosis Plan Continue supportive care and tube feedings as tolerated Continue IV Reglan Continue IV Protonix 40 mg q.12 hours Patient is currently on Lovenox and heparin was discontinued Pulmonary and ID consults are following an appreciated CT of the right lower extremity appears to be focusing on the right leg but there was no report on the right foot Would recommend having radiology review the CT to see if there was any involvement of the right foot cxr with extensive bilateral airspace disease, some consolidative features present. 6 weeks ertapenem anticipated, EOT date is 02/28/25. dialysis as tolerated, UOP is 0 Of note, patient had a cardiopulmonary arrest on 02/02/25 for 1 minute, ROSC achieved. Dietary Evaluation Review Comments: Nutrition Recommendation 1) CCHO 60gm + renal standard diet 2) Nephro-santosh 1 tab daily 3) Lexx 1 pk daily 4) Monitor PO intake, lab values, weight trend, and I/O Expected Outcomes/Goals: To meet >75% estimated needs Wound to improve Fu 3-5 days Plan discussed with: Other (MARY Nurse) CC Plasma Assessment Blood Product Administration S: [id number] GLORIA SALGADO MD Feb 11, 2025 11:50
--- NOTE | 2025-02-11 12:27 | DVHPN2 ---
Reviewed: Care Plan, H&P Changes from previous H/P or p: No Changes General: Per HPI Objective Vitals Vital Signs Date Time Temp Pulse Resp B/P (MAP) Pulse Ox O2 Delivery O2 Flow Rate FiO2 02/11/25 11:56 40 02/11/25 11:56 24 99 Mechanical Ventilator+ 02/11/25 11:56 66 02/11/25 11:45 98.3 109/23 (51) 98.3 141/48 (79) Intake/Output Intake and Output 02/11/25 07:00 Intake Total 636.0 ml Output Total 75 ml Balance 561.0 ml Intake Oral 50 ml IV Total 426.0 ml Tube Feeding 160 ml Stool Total 75 ml General Appearance: mild distress, Other (Intubated and sedated) HEENT: Atraumatic, PERRLA Lungs: Clear to auscultation, Other (Mechanical ventilation.) Cardiovascular: Normal S1, Normal S2, Other (Patient now in sinus rhythm, heart rate 65) Abdomen: Normal bowel sounds, Soft, No tenderness, No hepatospenomegaly Musculoskeletal: Other (Unable to assess) Extremities: No clubbing, No cyanosis, No edema, Normal pulses, No tenderness/swelling Neuro: Other (Unable to assess) Skin: Dry, Intact, Wounds (See nurse notes and pictures), Other (Right foot necrosis) Psych/Mental Status: Other (Unable to assess) Medications Current Medications Medications Dose Ordered Sig/Seth Route Start Time Stop Time Status Last Admin Dose Admin Acetaminophen 325 mg Q4HP PRN PO 01/10/25 00:30 02/08/25 12:57 325 MG Ondansetron HCl 4 mg Q4HP PRN IV 01/10/25 00:30 01/20/25 16:19 4 MG Atorvastatin Calcium 40 mg HS PO 01/10/25 22:00 02/10/25 22:35 40 MG Levothyroxine Sodium 125 mcg QAM@0600 PO 01/11/25 06:00 02/11/25 05:27 125 MCG Sodium Chloride 10 ml QSHIFT@ IV 01/12/25 22:00 02/11/25 07:32 10 ML Dextrose 50 ml UD PRN IV 01/14/25 14:15 02/07/25 21:05 50 ML Fluconazole 100 mg POSTDI PRN PO 01/15/25 12:45 Cancel Albumin Human 100 ml @ 100 mls/hr WD PRN IV 01/18/25 21:00 02/03/25 11:36 100 MLS/HR Albuterol 2.5 mg Q4HPRN PRN NEB 01/20/25 16:00 02/09/25 14:24 2.5 MG Vancomycin HCl 0 ml @ 0 mls/hr PER PHARMACY IV 01/21/25 12:15 Cancel Fentanyl Citrate 250 ml @ 2.5 mls/hr Q24H IV 01/23/25 13:45 02/10/25 22:38 7.5 MLS/HR Enteral Nutritional Formula 1,000 ml 30ML/HR GT 01/23/25 18:00 02/10/25 22:41 1,000 ML Pantoprazole Sodium 40 mg BID IV 01/23/25 22:00 02/11/25 07:31 40 MG Sodium Chloride 1,000 ml @ 200 mls/hr Q5H IV 01/25/25 11:00 Cancel Amiodarone HCl 100 mg Q12HR PO 01/25/25 22:00 02/11/25 07:32 100 MG Midazolam HCl 100 ml @ 1 mls/hr Q24H IV 01/25/25 18:00 02/10/25 22:37 4 MLS/HR Diagnostic Test (Pha) 1 strip IQ4HR 01/28/25 12:00 02/11/25 11:50 1 STRIP Insulin Human Regular IQ4HR SC 01/28/25 12:00 02/11/25 11:53 3 UNITS Levalbuterol HCl 1.25 mg Q4HR NEB 02/02/25 14:30 02/11/25 09:27 1.25 MG Ipratropium [place] 0.5 mg Q4HR NEB 02/02/25 18:00 02/11/25 09:27 0.5 MG Enoxaparin Sodium 70 mg DAILY SC 02/04/25 15:30 02/08/25 12:58 70 MG Amiodarone HCl 250 ml @ 16.66 mls/ hr Q15H1M IV 02/05/25 16:15 02/06/25 22:17 16.66 MLS/HR Metoclopramide HCl 10 mg Q8HR GT 02/07/25 14:00 02/11/25 05:36 10 MG Ertapenem 0.5 gm/ Sodium Chloride 50 ml @ 100 mls/hr HS IV 02/07/25 22:00 02/10/25 22:33 100 MLS/HR Hydralazine HCl 10 mg Q6HP PRN IV 02/07/25 18:15 02/07/25 23:32 10 MG Vancomycin HCl 0 ml @ 0 mls/hr PER PHARMACY IV 02/08/25 18:30 Hydrocortisone Sodium Succinate 100 mg Q12HR IV 02/09/25 22:00 02/11/25 07:31 100 MG Midodrine 10 mg TID@0600,1200,1800 PO 02/09/25 12:00 02/11/25 10:41 10 MG Norepinephrine Bitartrate 32 mg/ Sodium Chloride 250 ml @ 0.469 mls/ hr Q24H IV 02/10/25 03:30 02/10/25 03:51 1.875 MLS/HR Metoprolol Tartrate 25 mg BID PO 02/11/25 10:00 Hold Laboratory Results Laboratory Tests 02/11/25 03:10 Chemistry Test 02/11/25 03:10 Albumin 3.5 g/dL (3.2-4.8) Calcium Level 9.5 mg/dL (8.7-10.4) Magnesium Level 2.3 mg/dL (1.6-2.6) Total Protein 5.9 g/dL (5.7-8.2) LFT Test 02/11/25 03:10 Alanine Aminotransferase (ALT) 39 U/L (7-40) Alkaline Phosphatase 134 U/L (46-116) H Aspartate Amino Transferase (AST) 60 U/L (13-40) H Total Bilirubin 1.2 mg/dL (0.2-1.0) H Urinalysis Test 01/10/25 09:18 Urine Color Yellow (Yellow) Urine Clarity Turbid (Clear) H Urine pH 6.5 (5.0-9.0) Urine Specific [place] 1.019 (1.001-1.035) Urine Protein 2+ (Negative) H Urine Ketones Negative (Negative) Urine Blood Negative /uL (Negative) Urine Nitrite Negative (Negative) Urine Bilirubin Negative (Negative) Urine Urobilinogen Normal mg/dL (Negative) Urine Leukocyte Esterase Trace /uL (Negative) Urine RBC 7 /hpf (0 - 4) Urine Microscopic WBC 4 /HPF (0-5) Urine Squamous Epithelial Cells Few /hpf (<5) Urine Bacteria None seen /hpf (None Seen) Urine Yeast (Budding) Moderate /hpf (None Seen) Urine Glucose 1+ mg/dL (Normal) H Blood Gas Results Test 02/11/25 06:58 Arterial Blood pH 7.341 (7.350-7.450) FiO2 % 40.0 Microbiology Microbiology Date/Time Source Procedure Growth Status 02/08/25 13:20 Blood Blood Culture - Preliminary NO GROWTH AFTER 48 HOURS OF INCUBATION. Resulted 02/01/25 05:00 Catheter Tip Aerobic Culture - Final Complete 01/24/25 10:06 Bronchial Washings Gram Stain - Final Complete 01/24/25 10:06 Bronchial Washings Respiratory Culture - Final Complete 01/10/25 09:18 Voided Urine Urine Culture - Final Presumptive Sully albicans Yeast, not Sully albicans Complete Labs and/or images reviewed: Labs reviewed by me, Image(s) reviewed by me Assessment/Plan Assessment/Plan HPI:64-year-old female patient who presents to ED with chief complaint of nonhealing right foot wound which started three weeks before her admission, progressively got worse presenting purulent discharge with foul smell and not able to bear weight on her foot. Worsening symptoms prompted her visit to the ED. Patient denies any associated symptoms including fever, chills, palpitation, syncope and dysuria. --Past medical history: Hypertension, dyslipidemia, prediabetes, congestive heart failure status post ICD placement, hypothyroidism, end-stage renal disease on hemodialysis (currently with [facility]), anxiety 02/07: Patient converted to sinus rhythm. Now off of vasopressor therapy. Patient has also had sedation vacation. FiO2 at 35%, peep of five. Plans for hemodialysis today. Recommend CPAP trial once neurologically and hemodynamically appropriate. Continue amiodarone infusion until hemodialysis has completed 02/08: 64 female she has diabetic ESRD, AFib. Patient is septic from right lower extremity osteomyelitis. Podiatry unable to take to OR due to unstable vitals. Levophed had to be re-initiated this morning. Patient is ESRD anuric, getting dialysis yesterday was the 1st good session because no Levophed was being needed, they did use Levophed during the dialysis. 2 L was removed. Patient looks euvolemic, maybe be dry, we will have to reassess with ultrasound IVC. Patient is growing ESBL, on Invanz. Suspicion requiring vasopressor again we will repeat blood culture. Pulmonology monitoring vent. Hydrocortisone was stopped, since vasopressors still be needed we will likely need to restart hydrocortisone and we will consider midodrine.. Patient has been intubated for few days, Glucerna we will restart, continue monitoring residuals. Patient is full code family stays by all the time 02/09: Continues to require Levophed, we will start monitoring in hydrocortisone. Blood cultures pending. This is low, unknown reason, no history of alcohol. We will get hit panel. We will discuss with Podiatry. Possible if patient is stabilized by Wednesday apps treat the source of infection see if patient recovers thereafter. 02/10: Unfortunately still on Levophed quad at 1 mcg per minute. Continue midodrine and hydrocortisone, hope for coming off of Levophed, we will get CT leg right lower extremity per recommendation of Podiatry. Can possibly give platelets if needs to go to OR. Continue present management. 02/11: Still requiring Levophed, yesterday went into tachycardia AFib requiring 1 dose of p.o. crushed metoprolol Lopressor, we will switch try to switch Lopressor to Tino-Synephrine if still requiring. We will increase hydrocortisone injection 500 to Q 8 H, continue midodrine 10 t.i.d.. Continue broad-spectrum antibiotics, CT leg without any concern for ongoing acute infection, no osteomyelitis. There is some visits of myositis. We will wait for Podiatry to review images tomorrow. Currently poor prognosis given despite on steroids and midodrine unable to wean off vasopressors. Minimal vent settings.? Is the source GI that has some loose stools, we will check stool WBC with culture. Repeat blood cultures still without any growth. Impression: -septic shock -right foot osteomyelitis -peripheral arterial disease -acute hypoxic respiratory failure -acute on chronic systolic and diastolic heart failure -end-stage renal disease with hemodialysis -diabetes mellitus Plan: -continue current ventilator settings. Wean FiO2 to keep saturation greater than 92% -pulmonology consultation: Recommendations reviewed. Assess appropriateness for weaning trial. If patient unsuccessful, we will recommend tracheostomy. -nephrology consultation: Recommendations reviewed. Plans for HD today -cardiology consultation: Recommendations reviewed -regular insulin sliding scale -repeat labs, ABG, and chest x-ray in a.m. -long discussion made with the patient's family yesterday afternoon regarding plan of care which includes possibility of tracheostomy and PEG tube placement. Code status continues to be full code at this time Critical care time spent with patient discussing and formulating plan of care: 90 minutes. This does not include time spent performing procedures. Plan discussed with: Other My Orders Orders - STEPHANY ASHRAF MD Procedure Category Date Status Time Metoprolol Tartrate PHA 02/11/25 In Process Tablet (Lopressor Ta 10:00 Date of Service: Feb 11, 2025 Billing Provider: STEPHANY ASHRAF MD Common Visit Codes: [id number] CARE 30-74 MIN STEPHANY ASHRAF MD Feb 11, 2025 12:27
[2025-02-11] MEDS ORDERED: HYDROCORTISONE SOD SUCC 100 MG/2ML INJ VIAL IV SCH (14:28)
[2025-02-11] MEDS: HYDROCORTISONE SOD SUCC 100 MG/2ML INJ VIAL IV SCH (14:30)
--- NOTE | 2025-02-11 16:23 | DVHPN2 ---
Progress Note - Dictate Date Seen: Feb 11, 2025 Medical Necessity Reason Pt with a Central, PICC or Fol: Yes The following are medically ne: Central Line, [place] Catheter Subjective Has been off pressors since today afternoon. vital signs Vital Sign Date Time Temp Pulse Resp B/P (MAP) Pulse Ox O2 Delivery O2 Flow Rate FiO2 02/11/25 16:15 65 19 114/23 (53) 100 151/48 (82) 02/11/25 16:00 Mechanical Ventilator+ 40 40 02/11/25 16:00 96.6 96.6 Total Intake and Output 02/10/25 02/10/25 02/11/25 15:00 23:00 07:00 Intake Total 92.0 ml 352.0 ml 192.0 ml Output Total 0 ml 75 ml Balance 92.0 ml 352.0 ml 117.0 ml medications Current Medications Medications Dose Ordered Sig/Seth Route Start Time Stop Time Status Last Admin Dose Admin Acetaminophen 325 mg Q4HP PRN PO 01/10/25 00:30 02/08/25 12:57 325 MG Ondansetron HCl 4 mg Q4HP PRN IV 01/10/25 00:30 01/20/25 16:19 4 MG Atorvastatin Calcium 40 mg HS PO 01/10/25 22:00 02/10/25 22:35 40 MG Levothyroxine Sodium 125 mcg QAM@0600 PO 01/11/25 06:00 02/11/25 05:27 125 MCG Sodium Chloride 10 ml QSHIFT@10,22 IV 01/12/25 22:00 02/11/25 07:32 10 ML Dextrose 50 ml UD PRN IV 01/14/25 14:15 02/07/25 21:05 50 ML Fluconazole 100 mg POSTDI PRN PO 01/15/25 12:45 Cancel Albumin Human 100 ml @ 100 mls/hr WD PRN IV 01/18/25 21:00 02/03/25 11:36 100 MLS/HR Albuterol 2.5 mg Q4HPRN PRN NEB 01/20/25 16:00 02/09/25 14:24 2.5 MG Vancomycin HCl 0 ml @ 0 mls/hr PER PHARMACY IV 01/21/25 12:15 Cancel Fentanyl Citrate 250 ml @ 2.5 mls/hr Q24H IV 01/23/25 13:45 02/10/25 22:38 7.5 MLS/HR Enteral Nutritional Formula 1,000 ml 30ML/HR GT 01/23/25 18:00 02/10/25 22:41 1,000 ML Pantoprazole Sodium 40 mg BID IV 01/23/25 22:00 02/11/25 07:31 40 MG Sodium Chloride 1,000 ml @ 200 mls/hr Q5H IV 01/25/25 11:00 Cancel Amiodarone HCl 100 mg Q12HR PO 01/25/25 22:00 02/11/25 07:32 100 MG Midazolam HCl 100 ml @ 1 mls/hr Q24H IV 01/25/25 18:00 02/10/25 22:37 4 MLS/HR Diagnostic Test (Pha) 1 strip IQ4HR 01/28/25 12:00 02/11/25 16:18 1 STRIP Insulin Human Regular IQ4HR SC 01/28/25 12:00 02/11/25 11:53 3 UNITS Levalbuterol HCl 1.25 mg Q4HR NEB 02/02/25 14:30 02/11/25 13:13 1.25 MG Ipratropium [place] 0.5 mg Q4HR NEB 02/02/25 18:00 02/11/25 13:13 0.5 MG Enoxaparin Sodium 70 mg DAILY SC 02/04/25 15:30 02/08/25 12:58 70 MG Amiodarone HCl 250 ml @ 16.66 mls/ hr Q15H1M IV 02/05/25 16:15 02/06/25 22:17 16.66 MLS/HR Metoclopramide HCl 10 mg Q8HR GT 02/07/25 14:00 02/11/25 13:50 10 MG Ertapenem 0.5 gm/ Sodium Chloride 50 ml @ 100 mls/hr HS IV 02/07/25 22:00 02/10/25 22:33 100 MLS/HR Hydralazine HCl 10 mg Q6HP PRN IV 02/07/25 18:15 02/07/25 23:32 10 MG Vancomycin HCl 0 ml @ 0 mls/hr PER PHARMACY IV 02/08/25 18:30 Midodrine 10 mg TID@0600,1200,1800 PO 02/09/25 12:00 02/11/25 10:41 10 MG Norepinephrine Bitartrate 32 mg/ Sodium Chloride 250 ml @ 0.469 mls/ hr Q24H IV 02/10/25 03:30 02/10/25 03:51 1.875 MLS/HR Metoprolol Tartrate 25 mg BID PO 02/11/25 10:00 Hold Hydrocortisone Sodium Succinate 100 mg Q8HR IV 02/11/25 14:30 02/11/25 14:30 100 MG objective intubated and sedated Pulmonary: Diminished breath sounds at bases Cardiovascular S1-S2, no S3 or S4 Abdomen: Bowel sounds positive, soft no rebound tenderness Neurological: intubated and sedated Extremities: Right foot gangrenous laboratory and microbiology Laboratory Tests 02/11/25 03:10 Test 02/11/25 03:10 Range/Units Serum Glucose 135 H 74-106 mg/dL Problem List ESRD on HD Acute hypoxic respiratory failure Shock secondary to sepsis Right lower extremity cellulitis Pneumonia DM hypothyroidism Anemia Hyperphosphatemia Secondary hyperparathyroidism Thrombocytopenia Assessment/Plan Next dialysis on Wednesday Off pressors. On amiodarone for AFib. vent management as per pulmonary continue IV abx . CT of lower extremity noted. Prognosis guarded Dietary Evaluation Review Comments: Nutrition Recommendation 1) CCHO 60gm + renal standard diet 2) Nephro-santosh 1 tab daily 3) Lexx 1 pk daily 4) Monitor PO intake, lab values, weight trend, and I/O Expected Outcomes/Goals: To meet >75% estimated needs Wound to improve Fu 3-5 days Plan discussed with: Other CC Plasma Assessment Blood Product Administration S: [id number] RENETTA LORENZ MD Feb 11, 2025 16:23
--- NOTE | 2025-02-11 21:29 | DVHPN2 ---
Consult Progress Note Date Seen: Feb 11, 2025 Objective vital signs Vital Sign Date Time Temp Pulse Resp B/P (MAP) Pulse Ox O2 Delivery O2 Flow Rate FiO2 02/11/25 20:05 61 24 162/50 (87) 99 35 02/11/25 18:30 Mechanical Ventilator 02/11/25 16:00 96.6 96.6 Total Intake and Output 02/10/25 02/10/25 02/11/25 15:00 23:00 07:00 Intake Total 92.0 ml 352.0 ml 192.0 ml Output Total 0 ml 75 ml Balance 92.0 ml 352.0 ml 117.0 ml medications Current Medications Medications Dose Ordered Sig/Seth Route Start Time Stop Time Status Last Admin Dose Admin Acetaminophen 325 mg Q4HP PRN PO 01/10/25 00:30 02/08/25 12:57 325 MG Ondansetron HCl 4 mg Q4HP PRN IV 01/10/25 00:30 01/20/25 16:19 4 MG Atorvastatin Calcium 40 mg HS PO 01/10/25 22:00 02/10/25 22:35 40 MG Levothyroxine Sodium 125 mcg QAM@0600 PO 01/11/25 06:00 02/11/25 05:27 125 MCG Sodium Chloride 10 ml QSHIFT@10,22 IV 01/12/25 22:00 02/11/25 07:32 10 ML Dextrose 50 ml UD PRN IV 01/14/25 14:15 02/07/25 21:05 50 ML Fluconazole 100 mg POSTDI PRN PO 01/15/25 12:45 Cancel Albumin Human 100 ml @ 100 mls/hr WD PRN IV 01/18/25 21:00 02/03/25 11:36 100 MLS/HR Albuterol 2.5 mg Q4HPRN PRN NEB 01/20/25 16:00 02/09/25 14:24 2.5 MG Vancomycin HCl 0 ml @ 0 mls/hr PER PHARMACY IV 01/21/25 12:15 Cancel Fentanyl Citrate 250 ml @ 2.5 mls/hr Q24H IV 01/23/25 13:45 02/10/25 22:38 7.5 MLS/HR Enteral Nutritional Formula 1,000 ml 30ML/HR GT 01/23/25 18:00 02/10/25 22:41 1,000 ML Pantoprazole Sodium 40 mg BID IV 01/23/25 22:00 02/11/25 07:31 40 MG Sodium Chloride 1,000 ml @ 200 mls/hr Q5H IV 01/25/25 11:00 Cancel Amiodarone HCl 100 mg Q12HR PO 01/25/25 22:00 02/11/25 07:32 100 MG Midazolam HCl 100 ml @ 1 mls/hr Q24H IV 01/25/25 18:00 02/10/25 22:37 4 MLS/HR Diagnostic Test (Pha) 1 strip IQ4HR 01/28/25 12:00 02/11/25 16:18 1 STRIP Insulin Human Regular IQ4HR SC 01/28/25 12:00 02/11/25 16:20 3 UNITS Levalbuterol HCl 1.25 mg Q4HR NEB 02/02/25 14:30 02/11/25 18:30 1.25 MG Ipratropium [place] 0.5 mg Q4HR NEB 02/02/25 18:00 02/11/25 18:30 0.5 MG Enoxaparin Sodium 70 mg DAILY SC 02/04/25 15:30 02/08/25 12:58 70 MG Amiodarone HCl 250 ml @ 16.66 mls/ hr Q15H1M IV 02/05/25 16:15 02/06/25 22:17 16.66 MLS/HR Metoclopramide HCl 10 mg Q8HR GT 02/07/25 14:00 02/11/25 13:50 10 MG Ertapenem 0.5 gm/ Sodium Chloride 50 ml @ 100 mls/hr HS IV 02/07/25 22:00 02/10/25 22:33 100 MLS/HR Hydralazine HCl 10 mg Q6HP PRN IV 02/07/25 18:15 02/07/25 23:32 10 MG Vancomycin HCl 0 ml @ 0 mls/hr PER PHARMACY IV 02/08/25 18:30 Midodrine 10 mg TID@0600,1200,1800 PO 02/09/25 12:00 02/11/25 17:15 10 MG Norepinephrine Bitartrate 32 mg/ Sodium Chloride 250 ml @ 0.469 mls/ hr Q24H IV 02/10/25 03:30 02/10/25 03:51 1.875 MLS/HR Metoprolol Tartrate 25 mg BID PO 02/11/25 10:00 Hold Hydrocortisone Sodium Succinate 100 mg Q8HR IV 02/11/25 14:30 02/11/25 14:30 100 MG laboratory and microbiology Laboratory Tests 02/11/25 03:10 Test 02/11/25 03:10 Range/Units Serum Glucose 135 H 74-106 mg/dL Problem List/Assessment/Plan Problem List/Assessment/Plan influenza a, covid, rsv negative BAL culture and blood cultures negative mrsa nares negative levophed ongoing and high vent needs = levophed 2, fio2 30%, on heparin [id number] weaned cxr with extensive bilateral airspace disease, some consolidative features present. 02/06: vancomycin started empirically, blood culture acquire for persistent levophed, increased fio2 need 02/10: without blood culture positive, tolerance of HD w/ improved FIO2 needs Plans: copd and chf exacerbation per cardiology and pulmonology team CT R foot with soft tissue swelling no osteomyelitis, unclear if masked by ertapenem use patient appears responsive to vancomycin albiet ongoing leukocytosis could be related to progressive R foot debridement, consider surgical consultation for bedside InD continue vancomycin goal through 15-20 6 weeks ertapenem anticipated, EOT date is 02/28/25. dialysis as tolerated, UOP is 0 maps>65 Plan discussed with: Patient Dietary Evaluation Review Comments: Nutrition Recommendation 1) CCHO 60gm + renal standard diet 2) Nephro-santosh 1 tab daily 3) Lexx 1 pk daily 4) Monitor PO intake, lab values, weight trend, and I/O Expected Outcomes/Goals: To meet >75% estimated needs Wound to improve Fu 3-5 days CC Plasma Assessment Blood Product Administration S: [id number] CONY TAYLOR MD Feb 11, 2025 21:29
[2025-02-11] MEDS ORDERED: VANCOMYCIN PER PHARMACY 0 MG IV SCH (21:30)
--- NOTE | 2025-02-11 23:09 | DVHPN2 ---
[facility] DOS: 02/11/2025 Patient seen and examined at bedside. Sedated, intubated on mechanical ventilator. Overnight events reviewed. Reviewed: Care Plan, H&P Changes from previous H/P or p: No Changes General: Per HPI Objective Vitals Vital Signs Date Time Temp Pulse Resp B/P (MAP) Pulse Ox O2 Delivery O2 Flow Rate FiO2 02/11/25 22:25 60 24 161/49 (86) 100 35 02/11/25 18:30 Mechanical Ventilator 02/11/25 16:00 96.6 96.6 Intake/Output Intake and Output 02/11/25 07:00 Intake Total 636.0 ml Output Total 75 ml Balance 561.0 ml Intake Oral 50 ml IV Total 426.0 ml Tube Feeding 160 ml Stool Total 75 ml Exam Gen.: Patient lying in bed in medical ICU. Sedated, intubated on mechanical ventilator. Head: Normocephalic, atraumatic. Eyes: PERRLA. Ears: Normal external anatomy. Throat: Endotracheal tube and orogastric tube in place. Neck: Supple, trachea midline. Chest: Transmitted breath sounds bilaterally. Decreased air entry bilaterally. No wheezing. Bibasilar crackles. Cardiovascular: Positive S1, positive S2. Regular rate and rhythm. Abdomen: Positive bowel sounds in all 4 quadrants. Soft, nontender, nondistended. : [place] in place. Normal external genitalia. Rectal: Deferred. Skin: Warm, dry. Right foot osteomyelitis. Extremities: 2+ radial pulses bilaterally. No lower extremity edema. Neuro: Sedated General Appearance: mild distress, Other (Intubated and sedated) HEENT: Atraumatic, PERRLA Lungs: Clear to auscultation, Other (Mechanical ventilation.) Cardiovascular: Normal S1, Normal S2, Other (Patient now in sinus rhythm, heart rate 65) Abdomen: Normal bowel sounds, Soft, No tenderness, No hepatospenomegaly Musculoskeletal: Other (Unable to assess) Extremities: No clubbing, No cyanosis, No edema, Normal pulses, No tenderness/swelling Neuro: Other (Unable to assess) Skin: Dry, Intact, Wounds (See nurse notes and pictures), Other (Right foot necrosis) Psych/Mental Status: Other (Unable to assess) Medications Current Medications Medications Dose Ordered Sig/Seth Route Start Time Stop Time Status Last Admin Dose Admin Acetaminophen 325 mg Q4HP PRN PO 01/10/25 00:30 02/08/25 12:57 325 MG Ondansetron HCl 4 mg Q4HP PRN IV 01/10/25 00:30 01/20/25 16:19 4 MG Atorvastatin Calcium 40 mg HS PO 01/10/25 22:00 02/11/25 21:26 40 MG Levothyroxine Sodium 125 mcg QAM@0600 PO 01/11/25 06:00 02/11/25 05:27 125 MCG Sodium Chloride 10 ml QSHIFT@10,22 IV 01/12/25 22:00 02/11/25 21:22 10 ML Dextrose 50 ml UD PRN IV 01/14/25 14:15 02/07/25 21:05 50 ML Fluconazole 100 mg POSTDI PRN PO 01/15/25 12:45 Cancel Albumin Human 100 ml @ 100 mls/hr WD PRN IV 01/18/25 21:00 02/03/25 11:36 100 MLS/HR Albuterol 2.5 mg Q4HPRN PRN NEB 01/20/25 16:00 02/09/25 14:24 2.5 MG Vancomycin HCl 0 ml @ 0 mls/hr PER PHARMACY IV 01/21/25 12:15 Cancel Fentanyl Citrate 250 ml @ 2.5 mls/hr Q24H IV 01/23/25 13:45 02/11/25 21:56 10 MLS/HR Enteral Nutritional Formula 1,000 ml 30ML/HR GT 01/23/25 18:00 02/10/25 22:41 1,000 ML Pantoprazole Sodium 40 mg BID IV 01/23/25 22:00 02/11/25 21:22 40 MG Sodium Chloride 1,000 ml @ 200 mls/hr Q5H IV 01/25/25 11:00 Cancel Amiodarone HCl 100 mg Q12HR PO 01/25/25 22:00 02/11/25 21:26 100 MG Midazolam HCl 100 ml @ 1 mls/hr Q24H IV 01/25/25 18:00 02/10/25 22:37 4 MLS/HR Diagnostic Test (Pha) 1 strip IQ4HR 01/28/25 12:00 02/11/25 20:00 1 STRIP Insulin Human Regular IQ4HR SC 01/28/25 12:00 02/11/25 21:18 2 UNITS Levalbuterol HCl 1.25 mg Q4HR NEB 02/02/25 14:30 02/11/25 22:24 1.25 MG Ipratropium [place] 0.5 mg Q4HR NEB 02/02/25 18:00 02/11/25 22:24 0.5 MG Enoxaparin Sodium 70 mg DAILY SC 02/04/25 15:30 02/08/25 12:58 70 MG Amiodarone HCl 250 ml @ 16.66 mls/ hr Q15H1M IV 02/05/25 16:15 02/06/25 22:17 16.66 MLS/HR Metoclopramide HCl 10 mg Q8HR GT 02/07/25 14:00 02/11/25 21:29 10 MG Ertapenem 0.5 gm/ Sodium Chloride 50 ml @ 100 mls/hr HS IV 02/07/25 22:00 02/11/25 21:30 100 MLS/HR Hydralazine HCl 10 mg Q6HP PRN IV 02/07/25 18:15 02/07/25 23:32 10 MG Midodrine 10 mg TID@0600,1200,1800 PO 02/09/25 12:00 02/11/25 17:15 10 MG Norepinephrine Bitartrate 32 mg/ Sodium Chloride 250 ml @ 0.469 mls/ hr Q24H IV 02/10/25 03:30 02/10/25 03:51 1.875 MLS/HR Metoprolol Tartrate 25 mg BID PO 02/11/25 10:00 Hold Hydrocortisone Sodium Succinate 100 mg Q8HR IV 02/11/25 14:30 02/11/25 21:22 100 MG Vancomycin HCl 0 ml @ 0 mls/hr PER PHARMACY IV 02/11/25 21:30 UNV Laboratory Results Laboratory Tests 02/11/25 03:10 Chemistry Test 02/11/25 03:10 Albumin 3.5 g/dL (3.2-4.8) Calcium Level 9.5 mg/dL (8.7-10.4) Magnesium Level 2.3 mg/dL (1.6-2.6) Total Protein 5.9 g/dL (5.7-8.2) LFT Test 02/11/25 03:10 Alanine Aminotransferase (ALT) 39 U/L (7-40) Alkaline Phosphatase 134 U/L (46-116) H Aspartate Amino Transferase (AST) 60 U/L (13-40) H Total Bilirubin 1.2 mg/dL (0.2-1.0) H Urinalysis Test 01/10/25 09:18 Urine Color Yellow (Yellow) Urine Clarity Turbid (Clear) H Urine pH 6.5 (5.0-9.0) Urine Specific [place] 1.019 (1.001-1.035) Urine Protein 2+ (Negative) H Urine Ketones Negative (Negative) Urine Blood Negative /uL (Negative) Urine Nitrite Negative (Negative) Urine Bilirubin Negative (Negative) Urine Urobilinogen Normal mg/dL (Negative) Urine Leukocyte Esterase Trace /uL (Negative) Urine RBC 7 /hpf (0 - 4) Urine Microscopic WBC 4 /HPF (0-5) Urine Squamous Epithelial Cells Few /hpf (<5) Urine Bacteria None seen /hpf (None Seen) Urine Yeast (Budding) Moderate /hpf (None Seen) Urine Glucose 1+ mg/dL (Normal) H Blood Gas Results Test 02/11/25 06:58 Arterial Blood pH 7.341 (7.350-7.450) FiO2 % 40.0 Microbiology Microbiology Date/Time Source Procedure Growth Status 02/08/25 13:20 Blood Blood Culture - Preliminary NO GROWTH AFTER 72 HOURS OF INCUBATION. Resulted 02/01/25 05:00 Catheter Tip Aerobic Culture - Final Complete 01/24/25 10:06 Bronchial Washings Gram Stain - Final Complete 01/24/25 10:06 Bronchial Washings Respiratory Culture - Final Complete 01/10/25 09:18 Voided Urine Urine Culture - Final Presumptive Sully albicans Yeast, not Sully albicans Complete Assessment/Plan Assessment/Plan Impression: Acute hypoxic respiratory failure On mechanical ventilator Acute CHF exacerbation End-stage renal disease, on hemodialysis Osteomyelitis DVT, left upper extremity Overweight Events: Remains on vent support On AC mode; RR 24, VT 400, PEEP 8, FiO2 35% Improved FIO2 requirements Patient noted to desaturate with turns. Hemodialysis per Nephrology - HD yesterday. Monitor for blood pressure drops during hemodialysis. Sedated on Versed, Fentanyl Currently off Levophed, hemodynamically stable. Monitor blood pressure Midodrine TID for BP support Amiodarone PO for atrial fibrillation with rapid ventricular response Follow up Cardiology recs. Of note, patient had a cardiopulmonary arrest on 02/02/25 for 1 minute, ROSC achieved. Heparin drip due to left upper extremity DVT - currently on hold. Monitor hemoglobin Transfuse if less than 7.0 g/dL. On Lovenox SC. Continue bronchodilators. Continue antibiotics - vancomycin per Pharmacy Follow up repeat blood cultures Started hydrocortisone Hemodialysis per Nephrology Follow up Nephrology recommendations Monitor renal function Monitor electrolytes. Supplement as necessary. Monitor platelets Accu-Cheks, ISS. Tube feeds for nutritional support DTI sacrum - wound care. Follow up with Podiatry CPAP daily if appropriate, as tolerated. Note, patient with overall poor prognosis. High likelihood of demise. CXR on 02/[address]; Stable multifocal patchy bilateral pulmonary airspace disease with mild consolidative features. Small left pleural effusion. Cardiomegaly. CT of RLE demonstrates mild myositis. No CT evidence at this time of osteomyelitis of the right femur. Left upper extremity venous duplex revealed DVT in left axillary and brachial veins. Labs and imaging reviewed. Rest of plan as noted below. Plan: s/p intubation on mechanical ventilator. On AC mode; RR 24, VT 400, PEEP 8, FiO2 35% S/p bronchoscopy on 11/24/24 - Results from bronchial washings show no growth. Titrate FIO2 to keep O2 saturation above 90%. VAP bundle. Daily ABG and CXR while intubated Continue bronchodilators. Continue antibiotics. Follow up cultures. IV steroids Pressors for hemodynamic support Titrate to keep MAP above 65 mmHg/SBP above 90 mmHg. Accu-Cheks, ISS Wound care. Monitor H&H. Hemodialysis per Nephrology Monitor renal function Monitor electrolytes. Supplement as necessary. Monitor ins and outs. Maintain euvolemia. GI prophylaxis. DVT prophylaxis. Prognosis: Poor given patient's multiple co-morbidities. Condition: Critical Rest of plan per hospitalist and other consultants. A total of 35 minutes of critical care time was spent reviewing the patient record, examining the patient, making a diagnostic and therapeutic plan, discussing this plan with the medical personnel, following up on diagnostic studies and following the patient for clinical stability excluding any and all procedures. At least 50% of this time was spent in direct, [id number] contact. Thank you, Dr. Bowie, for allowing me to participate in this patient's care. Further recommendations will depend on the patient's clinical course. Please do not hesitate to contact me if you have any questions or concerns. This medical document was created using an electronic medical record system with [employer] dictation system. Although these documentations are being carefully reviewed, there may still be some phonetic and typographical changes. The errors are purely typographical, due to imperfection on the software program, and do not reflect any compromise in the patient's medical care. Plan discussed with: Other (ALBERTINA Grissom) Visit Coding Pulmonary Billing Provider: ALCON GUTHRIE MD Date of Service if different f: Feb 11, 2025 Common Visit Codes: [id number] INP/OBS CARE(HIGH), [id number] CARE 30-74 MIN ALCON GUTHRIE MD Feb 11, 2025 23:09
[2025-02-12] VITALS (108 sets, daily range): BP systolic 56–176; BP diastolic 21–78; PULSE 56–71; RESP 13–26; TEMP 97.8–98.7; O2SAT 88–100
--- NOTE | 2025-02-12 06:26 | DVH ---
CHEST RADIOGRAPH Indication: intubated Technique: Single frontal view of the chest was obtained Comparison: XY CHEST PORTABLE on DOS: 02/10/25 FINDINGS: Lines and Tubes: The endotracheal tube terminates 3.6 cm above the rod. The enteric tube courses below the left hemidiaphragm and the tip extends outside the field of view. AICD/pacemaker is noted. Lungs: Patchy diffuse bilateral consolidation is unchanged Pleura: No effusion. No pneumothorax. Cardiomediastinal contours: Stable cardiomegaly. Bones: No acute osseous abnormality. IMPRESSION: 1. Stable position of the support lines and tubes. 2. No significant interval change in patchy diffuse bilateral airspace consolidation.
[2025-02-12 07:15] LABS: Base Excess -0.2 mmol/L (-2.0-3.0)
[2025-02-12 07:17] LABS: Hematocrit 24.6 % (36.0-46.0); Hemoglobin 8.3 g/dL (12.2-16.2); Mean Corpuscular Hemoglobin 32.2 pg (28.0-32.0); Mean Corpuscular Volume 94.8 fL (80.0-100.0); Nucleated Red Blood Cells % 0.0 %
[2025-02-12 07:47] LABS: Anion Gap 14 (5-15); BUN/Creatinine Ratio 13.8 (10.0-20.0); Calcium 9.1 mg/dL (8.7-10.4); Carbon Dioxide 27 mmol/L (20-31); Chloride 101 mmol/L (98-107); Potassium 4.2 mmol/L (3.5-5.1); Sodium 142 mmol/L (136-145)
[2025-02-12 07:48] LABS: Alanine Aminotransferase 44 U/L (7-40); Albumin 3.0 g/dL (3.2-4.8); Alkaline Phosphatase 162 U/L (46-116); Bilirubin, Total 0.8 mg/dL (0.2-1.0); Blood Urea Nitrogen 49 mg/dL (9-23); Glucose 143 mg/dL (74-106); Total Protein 5.4 g/dL (5.7-8.2)
--- NOTE | 2025-02-12 10:27 | DVHPN2 ---
Subjective Patient chemically sedated Reviewed: Care Plan, H&P Changes from previous H/P or p: No Changes General: Per HPI Objective Vitals Vital Signs Date Time Temp Pulse Resp B/P (MAP) Pulse Ox O2 Delivery O2 Flow Rate FiO2 02/12/25 09:32 63 24 143/53 98 35 02/12/25 06:00 Mechanical Ventilator+ 02/12/25 04:00 97.8 97.8 Intake/Output Intake and Output 02/12/25 07:00 Intake Total 775.5 ml Output Total 0 ml Balance 775.5 ml Intake Oral 150 ml IV Total 350.5 ml Tube Feeding 275 ml Stool Total 0 ml General Appearance: mild distress, Other (Intubated and sedated) HEENT: Atraumatic, PERRLA Lungs: Clear to auscultation, Other (Mechanical ventilation.) Cardiovascular: Normal S1, Normal S2, Other (Patient now in sinus rhythm, heart rate 65) Abdomen: Normal bowel sounds, Soft, No tenderness, No hepatospenomegaly Musculoskeletal: Other (Unable to assess) Extremities: No clubbing, No cyanosis, No edema, Normal pulses, No tenderness/swelling Neuro: Other (Unable to assess) Skin: Dry, Intact, Wounds (See nurse notes and pictures), Other (Right foot necrosis) Psych/Mental Status: Other (Unable to assess) Medications Current Medications Medications Dose Ordered Sig/Seth Route Start Time Stop Time Status Last Admin Dose Admin Acetaminophen 325 mg Q4HP PRN PO 01/10/25 00:30 02/08/25 12:57 325 MG Ondansetron HCl 4 mg Q4HP PRN IV 01/10/25 00:30 01/20/25 16:19 4 MG Atorvastatin Calcium 40 mg HS PO 01/10/25 22:00 02/11/25 21:26 40 MG Levothyroxine Sodium 125 mcg QAM@0600 PO 01/11/25 06:00 02/12/25 05:14 125 MCG Dextrose 50 ml UD PRN IV 01/14/25 14:15 02/07/25 21:05 50 ML Fluconazole 100 mg POSTDI PRN PO 01/15/25 12:45 Cancel Albumin Human 100 ml @ 100 mls/hr WD PRN IV 01/18/25 21:00 02/03/25 11:36 100 MLS/HR Albuterol 2.5 mg Q4HPRN PRN NEB 01/20/25 16:00 02/09/25 14:24 2.5 MG Vancomycin HCl 0 ml @ 0 mls/hr PER PHARMACY IV 01/21/25 12:15 Cancel Fentanyl Citrate 250 ml @ 2.5 mls/hr Q24H IV 01/23/25 13:45 02/11/25 21:56 10 MLS/HR Enteral Nutritional Formula 1,000 ml 30ML/HR GT 01/23/25 18:00 02/12/25 05:27 1,000 ML Pantoprazole Sodium 40 mg BID IV 01/23/25 22:00 02/11/25 21:22 40 MG Sodium Chloride 1,000 ml @ 200 mls/hr Q5H IV 01/25/25 11:00 Cancel Amiodarone HCl 100 mg Q12HR PO 01/25/25 22:00 02/11/25 21:26 100 MG Midazolam HCl 100 ml @ 1 mls/hr Q24H IV 01/25/25 18:00 02/12/25 04:00 5 MLS/HR Diagnostic Test (Pha) 1 strip IQ4HR 01/28/25 12:00 02/12/25 05:09 1 STRIP Insulin Human Regular IQ4HR SC 01/28/25 12:00 02/12/25 05:11 2 UNITS Levalbuterol HCl 1.25 mg Q4HR NEB 02/02/25 14:30 02/12/25 09:18 1.25 MG Ipratropium [place] 0.5 mg Q4HR NEB 02/02/25 18:00 02/12/25 09:18 0.5 MG Enoxaparin Sodium 70 mg DAILY SC 02/04/25 15:30 02/08/25 12:58 70 MG Amiodarone HCl 250 ml @ 16.66 mls/ hr Q15H1M IV 02/05/25 16:15 02/06/25 22:17 16.66 MLS/HR Metoclopramide HCl 10 mg Q8HR GT 02/07/25 14:00 02/12/25 05:13 10 MG Ertapenem 0.5 gm/ Sodium Chloride 50 ml @ 100 mls/hr HS IV 02/07/25 22:00 02/11/25 21:30 100 MLS/HR Hydralazine HCl 10 mg Q6HP PRN IV 02/07/25 18:15 02/07/25 23:32 10 MG Midodrine 10 mg TID@0600,1200,1800 PO 02/09/25 12:00 02/12/25 06:00 10 MG Norepinephrine Bitartrate 32 mg/ Sodium Chloride 250 ml @ 0.469 mls/ hr Q24H IV 02/10/25 03:30 02/10/25 03:51 1.875 MLS/HR Metoprolol Tartrate 25 mg BID PO 02/11/25 10:00 Hold Hydrocortisone Sodium Succinate 100 mg Q8HR IV 02/11/25 14:30 02/12/25 05:14 100 MG Vancomycin HCl 0 ml @ 0 mls/hr PER PHARMACY IV 02/11/25 21:30 Laboratory Results Laboratory Tests 02/12/25 06:55 Chemistry Test 02/12/25 06:55 Albumin 3.0 g/dL (3.2-4.8) L Calcium Level 9.1 mg/dL (8.7-10.4) Total Protein 5.4 g/dL (5.7-8.2) L LFT Test 02/12/25 06:55 Alanine Aminotransferase (ALT) 44 U/L (7-40) H Alkaline Phosphatase 162 U/L (46-116) H Aspartate Amino Transferase (AST) 54 U/L (13-40) H Total Bilirubin 0.8 mg/dL (0.2-1.0) Urinalysis Test 01/10/25 09:18 Urine Color Yellow (Yellow) Urine Clarity Turbid (Clear) H Urine pH 6.5 (5.0-9.0) Urine Specific [employer] 1.019 (1.001-1.035) Urine Protein 2+ (Negative) H Urine Ketones Negative (Negative) Urine Blood Negative /uL (Negative) Urine Nitrite Negative (Negative) Urine Bilirubin Negative (Negative) Urine Urobilinogen Normal mg/dL (Negative) Urine Leukocyte Esterase Trace /uL (Negative) Urine RBC 7 /hpf (0 - 4) Urine Microscopic WBC 4 /HPF (0-5) Urine Squamous Epithelial Cells Few /hpf (<5) Urine Bacteria None seen /hpf (None Seen) Urine Yeast (Budding) Moderate /hpf (None Seen) Urine Glucose 1+ mg/dL (Normal) H Blood Gas Results Test 02/12/25 07:05 Arterial Blood pH 7.407 (7.350-7.450) FiO2 % 35.0 Microbiology Microbiology Date/Time Source Procedure Growth Status 02/08/25 13:20 Blood Blood Culture - Preliminary NO GROWTH AFTER 72 HOURS OF INCUBATION. Resulted 02/01/25 05:00 Catheter Tip Aerobic Culture - Final Complete 01/24/25 10:06 Bronchial Washings Gram Stain - Final Complete 01/24/25 10:06 Bronchial Washings Respiratory Culture - Final Complete 01/10/25 09:18 Voided Urine Urine Culture - Final Presumptive Sully albicans Yeast, not Sully albicans Complete Labs and/or images reviewed: Labs reviewed by me, Image(s) reviewed by me Assessment/Plan Assessment/Plan Impression: -septic shock -right foot osteomyelitis -peripheral arterial disease -acute hypoxic respiratory failure -acute on chronic systolic and diastolic heart failure -end-stage renal disease with hemodialysis -diabetes mellitus Plan: Events: Patient converted to sinus rhythm. Now off of vasopressor therapy. Patient has also had sedation vacation. FiO2 at 35%, peep of five. Plans for hemodialysis today. Recommend CPAP trial once neurologically and hemodynamically appropriate. Continue amiodarone infusion until hemodialysis has completed -continue current ventilator settings. Wean FiO2 to keep saturation greater than 92% -pulmonology consultation: Recommendations reviewed. Assess appropriateness for weaning trial. If patient unsuccessful, we will recommend tracheostomy. -nephrology consultation: Recommendations reviewed. Plans for HD today -cardiology consultation: Recommendations reviewed -regular insulin sliding scale -repeat labs, ABG, and chest x-ray in a.m. -long discussion made with the patient's family yesterday afternoon regarding plan of care which includes possibility of tracheostomy and PEG tube placement. Code status continues to be full code at this time Critical care time spent with patient discussing and formulating plan of care: 90 minutes. This does not include time spent performing procedures. This medical document was created using an electronic medical record system with [email or web address] system. Although this document has been carefully reviewed, there may still be some phonetic and typographical errors. These areas are purely typographical due to imperfections of the software programs, and do not reflect any compromise in the patient's medical care. Plan discussed with: Patient, Other (rn) My Orders Orders - TERRY REDD NP Procedure Category Date Status Time Abg W/ Co-Ox RT 02/12/25 Logged 06:00 Date of Service: Feb 12, 2025 Billing Provider: TERRY REDD NP Common Visit Codes: [id number] CARE 30-74 MIN TERRY REDD NP Feb 12, 2025 10:27
--- NOTE | 2025-02-12 10:29 | DVHPN2 ---
Subjective Patient chemically sedated Reviewed: Care Plan, H&P Changes from previous H/P or p: No Changes General: Per HPI Objective Vitals Vital Signs Date Time Temp Pulse Resp B/P (MAP) Pulse Ox O2 Delivery O2 Flow Rate FiO2 02/12/25 09:32 63 24 143/53 98 35 02/12/25 06:00 Mechanical Ventilator+ 02/12/25 04:00 97.8 97.8 Intake/Output Intake and Output 02/12/25 07:00 Intake Total 775.5 ml Output Total 0 ml Balance 775.5 ml Intake Oral 150 ml IV Total 350.5 ml Tube Feeding 275 ml Stool Total 0 ml General Appearance: mild distress, Other (Intubated and sedated) HEENT: Atraumatic, PERRLA Lungs: Clear to auscultation, Other (Mechanical ventilation.) Cardiovascular: Normal S1, Normal S2, Other (Patient now in sinus rhythm, heart rate 65) Abdomen: Normal bowel sounds, Soft, No tenderness, No hepatospenomegaly Musculoskeletal: Other (Unable to assess) Extremities: No clubbing, No cyanosis, No edema, Normal pulses, No tenderness/swelling Neuro: Other (Unable to assess) Skin: Dry, Intact, Wounds (See nurse notes and pictures), Other (Right foot necrosis) Psych/Mental Status: Other (Unable to assess) Medications Current Medications Medications Dose Ordered Sig/Seth Route Start Time Stop Time Status Last Admin Dose Admin Acetaminophen 325 mg Q4HP PRN PO 01/10/25 00:30 02/08/25 12:57 325 MG Ondansetron HCl 4 mg Q4HP PRN IV 01/10/25 00:30 01/20/25 16:19 4 MG Atorvastatin Calcium 40 mg HS PO 01/10/25 22:00 02/11/25 21:26 40 MG Levothyroxine Sodium 125 mcg QAM@0600 PO 01/11/25 06:00 02/12/25 05:14 125 MCG Dextrose 50 ml UD PRN IV 01/14/25 14:15 02/07/25 21:05 50 ML Fluconazole 100 mg POSTDI PRN PO 01/15/25 12:45 Cancel Albumin Human 100 ml @ 100 mls/hr WD PRN IV 01/18/25 21:00 02/03/25 11:36 100 MLS/HR Albuterol 2.5 mg Q4HPRN PRN NEB 01/20/25 16:00 02/09/25 14:24 2.5 MG Vancomycin HCl 0 ml @ 0 mls/hr PER PHARMACY IV 01/21/25 12:15 Cancel Fentanyl Citrate 250 ml @ 2.5 mls/hr Q24H IV 01/23/25 13:45 02/11/25 21:56 10 MLS/HR Enteral Nutritional Formula 1,000 ml 30ML/HR GT 01/23/25 18:00 02/12/25 05:27 1,000 ML Pantoprazole Sodium 40 mg BID IV 01/23/25 22:00 02/11/25 21:22 40 MG Sodium Chloride 1,000 ml @ 200 mls/hr Q5H IV 01/25/25 11:00 Cancel Amiodarone HCl 100 mg Q12HR PO 01/25/25 22:00 02/11/25 21:26 100 MG Midazolam HCl 100 ml @ 1 mls/hr Q24H IV 01/25/25 18:00 02/12/25 04:00 5 MLS/HR Diagnostic Test (Pha) 1 strip IQ4HR 01/28/25 12:00 02/12/25 05:09 1 STRIP Insulin Human Regular IQ4HR SC 01/28/25 12:00 02/12/25 05:11 2 UNITS Levalbuterol HCl 1.25 mg Q4HR NEB 02/02/25 14:30 02/12/25 09:18 1.25 MG Ipratropium [place] 0.5 mg Q4HR NEB 02/02/25 18:00 02/12/25 09:18 0.5 MG Enoxaparin Sodium 70 mg DAILY SC 02/04/25 15:30 02/08/25 12:58 70 MG Amiodarone HCl 250 ml @ 16.66 mls/ hr Q15H1M IV 02/05/25 16:15 02/06/25 22:17 16.66 MLS/HR Metoclopramide HCl 10 mg Q8HR GT 02/07/25 14:00 02/12/25 05:13 10 MG Ertapenem 0.5 gm/ Sodium Chloride 50 ml @ 100 mls/hr HS IV 02/07/25 22:00 02/11/25 21:30 100 MLS/HR Hydralazine HCl 10 mg Q6HP PRN IV 02/07/25 18:15 02/07/25 23:32 10 MG Midodrine 10 mg TID@0600,1200,1800 PO 02/09/25 12:00 02/12/25 06:00 10 MG Norepinephrine Bitartrate 32 mg/ Sodium Chloride 250 ml @ 0.469 mls/ hr Q24H IV 02/10/25 03:30 02/10/25 03:51 1.875 MLS/HR Metoprolol Tartrate 25 mg BID PO 02/11/25 10:00 Hold Hydrocortisone Sodium Succinate 100 mg Q8HR IV 02/11/25 14:30 02/12/25 05:14 100 MG Vancomycin HCl 0 ml @ 0 mls/hr PER PHARMACY IV 02/11/25 21:30 Laboratory Results Laboratory Tests 02/12/25 06:55 Chemistry Test 02/12/25 06:55 Albumin 3.0 g/dL (3.2-4.8) L Calcium Level 9.1 mg/dL (8.7-10.4) Total Protein 5.4 g/dL (5.7-8.2) L LFT Test 02/12/25 06:55 Alanine Aminotransferase (ALT) 44 U/L (7-40) H Alkaline Phosphatase 162 U/L (46-116) H Aspartate Amino Transferase (AST) 54 U/L (13-40) H Total Bilirubin 0.8 mg/dL (0.2-1.0) Urinalysis Test 01/10/25 09:18 Urine Color Yellow (Yellow) Urine Clarity Turbid (Clear) H Urine pH 6.5 (5.0-9.0) Urine Specific [place] 1.019 (1.001-1.035) Urine Protein 2+ (Negative) H Urine Ketones Negative (Negative) Urine Blood Negative /uL (Negative) Urine Nitrite Negative (Negative) Urine Bilirubin Negative (Negative) Urine Urobilinogen Normal mg/dL (Negative) Urine Leukocyte Esterase Trace /uL (Negative) Urine RBC 7 /hpf (0 - 4) Urine Microscopic WBC 4 /HPF (0-5) Urine Squamous Epithelial Cells Few /hpf (<5) Urine Bacteria None seen /hpf (None Seen) Urine Yeast (Budding) Moderate /hpf (None Seen) Urine Glucose 1+ mg/dL (Normal) H Blood Gas Results Test 02/12/25 07:05 Arterial Blood pH 7.407 (7.350-7.450) FiO2 % 35.0 Microbiology Microbiology Date/Time Source Procedure Growth Status 02/08/25 13:20 Blood Blood Culture - Preliminary NO GROWTH AFTER 72 HOURS OF INCUBATION. Resulted 02/01/25 05:00 Catheter Tip Aerobic Culture - Final Complete 01/24/25 10:06 Bronchial Washings Gram Stain - Final Complete 01/24/25 10:06 Bronchial Washings Respiratory Culture - Final Complete 01/10/25 09:18 Voided Urine Urine Culture - Final Presumptive Sully albicans Yeast, not Sully albicans Complete Assessment/Plan Assessment/Plan Impression: -septic shock -right foot osteomyelitis -peripheral arterial disease -acute hypoxic respiratory failure -acute on chronic systolic and diastolic heart failure -end-stage renal disease with hemodialysis -diabetes mellitus Plan: Events: Patient currently on 30% FiO2. Off vasopressor therapy. Patient has not had CPAP trial as of yet. Continues to have leukocytosis. Reconsult Podiatry for possible repeat I&D versus recommendations for right BKA. -continue current ventilator settings. Wean FiO2 to keep saturation greater than 92% -pulmonology consultation: Recommendations reviewed. Assess appropriateness for weaning trial. If patient unsuccessful, we will recommend tracheostomy. -nephrology consultation: Recommendations reviewed. -cardiology consultation: Recommendations reviewed -regular insulin sliding scale -repeat labs, ABG, and chest x-ray in a.m. Critical care time spent with patient discussing and formulating plan of care: 90 minutes. This does not include time spent performing procedures. This medical document was created using an electronic medical record system with [employer] dictation system. Although this document has been carefully reviewed, there may still be some phonetic and typographical errors. These areas are purely typographical due to imperfections of the software programs, and do not reflect any compromise in the patient's medical care. Plan discussed with: Patient, Other (Rn) My Orders Orders - TERRY REDD NP Procedure Category Date Status Time Abg W/ Co-Ox RT 02/12/25 Logged 06:00 Date of Service: Feb 12, 2025 Billing Provider: TERRY REDD NP Common Visit Codes: [id number] CARE 30-74 MIN TERRY REDD NP Feb 12, 2025 10:29
[2025-02-12] MEDS ORDERED: DEXTROSE (50%) 50ML SYRG IV PRN (10:30)
[2025-02-12] MEDS: ACCU-CHEK COMFORT CURVE STRIP VI SCH (12:53)
[2025-02-12] MEDS: InsuLIN REG 1unit/0.01ml Soln (100units/ml) SC SCH (12:54)
--- NOTE | 2025-02-12 14:09 | DVHPN2 ---
Progress Note - Dictate Date Seen: Feb 12, 2025 Medical Necessity Reason Pt with a Central, PICC or Fol: Yes The following are medically ne: Central Line, [place] Catheter Subjective Patient has been intubated vital signs Vital Sign Date Time Temp Pulse Resp B/P (MAP) Pulse Ox O2 Delivery O2 Flow Rate FiO2 02/12/25 13:03 66 26 164/59 (94) 100 35 02/12/25 12:00 Mechanical Ventilator+ 02/12/25 04:00 97.8 97.8 Total Intake and Output 02/11/25 02/11/25 02/12/25 15:00 23:00 07:00 Intake Total 92.0 ml 343.5 ml 340 ml Output Total 0 ml Balance 92.0 ml 343.5 ml 340 ml medications Current Medications Medications Dose Ordered Sig/Seth Route Start Time Stop Time Status Last Admin Dose Admin Acetaminophen 325 mg Q4HP PRN PO 01/10/25 00:30 02/08/25 12:57 325 MG Ondansetron HCl 4 mg Q4HP PRN IV 01/10/25 00:30 01/20/25 16:19 4 MG Atorvastatin Calcium 40 mg HS PO 01/10/25 22:00 02/11/25 21:26 40 MG Levothyroxine Sodium 125 mcg QAM@0600 PO 01/11/25 06:00 02/12/25 05:14 125 MCG Dextrose 50 ml UD PRN IV 01/14/25 14:15 02/07/25 21:05 50 ML Fluconazole 100 mg POSTDI PRN PO 01/15/25 12:45 Cancel Albumin Human 100 ml @ 100 mls/hr WD PRN IV 01/18/25 21:00 02/03/25 11:36 100 MLS/HR Albuterol 2.5 mg Q4HPRN PRN NEB 01/20/25 16:00 02/09/25 14:24 2.5 MG Vancomycin HCl 0 ml @ 0 mls/hr PER PHARMACY IV 01/21/25 12:15 Cancel Fentanyl Citrate 250 ml @ 2.5 mls/hr Q24H IV 01/23/25 13:45 02/11/25 21:56 10 MLS/HR Enteral Nutritional Formula 1,000 ml 30ML/HR GT 01/23/25 18:00 02/12/25 05:27 1,000 ML Pantoprazole Sodium 40 mg BID IV 01/23/25 22:00 02/12/25 10:45 40 MG Sodium Chloride 1,000 ml @ 200 mls/hr Q5H IV 01/25/25 11:00 Cancel Amiodarone HCl 100 mg Q12HR PO 01/25/25 22:00 02/12/25 12:53 100 MG Midazolam HCl 100 ml @ 1 mls/hr Q24H IV 01/25/25 18:00 02/12/25 04:00 5 MLS/HR Levalbuterol HCl 1.25 mg Q4HR NEB 02/02/25 14:30 02/12/25 13:03 1.25 MG Ipratropium [place] 0.5 mg Q4HR NEB 02/02/25 18:00 02/12/25 13:03 0.5 MG Enoxaparin Sodium 70 mg DAILY SC 02/04/25 15:30 02/08/25 12:58 70 MG Metoclopramide HCl 10 mg Q8HR GT 02/07/25 14:00 02/12/25 05:13 10 MG Ertapenem 0.5 gm/ Sodium Chloride 50 ml @ 100 mls/hr HS IV 02/07/25 22:00 02/11/25 21:30 100 MLS/HR Hydralazine HCl 10 mg Q6HP PRN IV 02/07/25 18:15 02/07/25 23:32 10 MG Midodrine 10 mg TID@0600,1200,1800 PO 02/09/25 12:00 02/12/25 06:00 10 MG Norepinephrine Bitartrate 32 mg/ Sodium Chloride 250 ml @ 0.469 mls/ hr Q24H IV 02/10/25 03:30 02/10/25 03:51 1.875 MLS/HR Metoprolol Tartrate 25 mg BID PO 02/11/25 10:00 Hold Vancomycin HCl 0 ml @ 0 mls/hr PER PHARMACY IV 02/11/25 21:30 Diagnostic Test (Pha) 1 strip Q6HR 02/12/25 12:00 02/12/25 12:53 1 STRIP Insulin Human Regular Q6HR SC 02/12/25 12:00 02/12/25 12:54 6 UNITS Dextrose 50 ml UD PRN IV 02/12/25 10:30 objective HEENT: ET tube in place Pulmonary: Who wheezing on auscultation bilaterally Cardiovascular S1-S2, no S3 or S4 Abdomen: Bowel sounds positive, soft no rebound tenderness Skin: No rash Neurological: Sedated Right foot dressed Hemodialysis access right upper arm AV fistula positive bruit and thrill laboratory and microbiology Laboratory Tests 02/12/25 06:55 Test 02/12/25 06:55 Range/Units Serum Glucose 143 H 74-106 mg/dL Assessment/Plan Assessment: ESRD on HD Acute hypoxic respiratory failure Shock secondary to sepsis Right lower extremity cellulitis Pneumonia DM hypothyroidism Anemia Hyperphosphatemia Secondary hyperparathyroidism Thrombocytopenia Plan and recommendations Continue dialysis TTS Currently of the pressors, use pressors p.r.n. On amiodarone for AFib. Pulmonary consult following Renally dose antibiotics for GFR less than 10 mL/minute CT of lower extremity noted. Guarded prognosis Thank you very much for allowing us to participate in the care of this patient Dietary Evaluation Review Comments: Nutrition Recommendation 1) CCHO 60gm + renal standard diet 2) Nephro-santosh 1 tab daily 3) Lexx 1 pk daily 4) Monitor PO intake, lab values, weight trend, and I/O Expected Outcomes/Goals: To meet >75% estimated needs Wound to improve Fu 3-5 days Plan discussed with: Patient CC Plasma Assessment Blood Product Administration S: [id number] JOSÉ LUIS TAM MD Feb 12, 2025 14:09
--- NOTE | 2025-02-12 18:49 | DVHPN2 ---
Progress Note Date Seen: Feb 12, 2025 Resident Creating Document: GLORIA SALGADO MD Medical Necessity Reason Pt with a Central, PICC or Fol: Yes The following are medically ne: Central Line, [place] Catheter Subjective Review of Systems Patient seen and examined at bedside Tolerating a tube feedings well with low residual volumes New flexi Seal rectal tube was inserted and the stool brownish seen in the tube H&H dropped , still above 8 and we will monitor Objective vital signs Vital Sign Date Time Temp Pulse Resp B/P (MAP) Pulse Ox O2 Delivery O2 Flow Rate FiO2 02/12/25 18:30 63 24 158/32 (74) 100 163/59 (93) 02/12/25 18:00 Mechanical Ventilator+ 35 35 02/12/25 16:00 98.2 98.2 Total Intake and Output 02/11/25 02/11/25 02/12/25 15:00 23:00 07:00 Intake Total 92.0 ml 343.5 ml 355 ml Output Total 0 ml Balance 92.0 ml 343.5 ml 355 ml medications Current Medications Medications Dose Ordered Sig/Seth Route Start Time Stop Time Status Last Admin Dose Admin Acetaminophen 325 mg Q4HP PRN PO 01/10/25 00:30 02/08/25 12:57 325 MG Ondansetron HCl 4 mg Q4HP PRN IV 01/10/25 00:30 01/20/25 16:19 4 MG Atorvastatin Calcium 40 mg HS PO 01/10/25 22:00 02/11/25 21:26 40 MG Levothyroxine Sodium 125 mcg QAM@0600 PO 01/11/25 06:00 02/12/25 05:14 125 MCG Dextrose 50 ml UD PRN IV 01/14/25 14:15 02/07/25 21:05 50 ML Fluconazole 100 mg POSTDI PRN PO 01/15/25 12:45 Cancel Albumin Human 100 ml @ 100 mls/hr WD PRN IV 01/18/25 21:00 02/03/25 11:36 100 MLS/HR Albuterol 2.5 mg Q4HPRN PRN NEB 01/20/25 16:00 02/09/25 14:24 2.5 MG Vancomycin HCl 0 ml @ 0 mls/hr PER PHARMACY IV 01/21/25 12:15 Cancel Fentanyl Citrate 250 ml @ 2.5 mls/hr Q24H IV 01/23/25 13:45 02/11/25 21:56 10 MLS/HR Enteral Nutritional Formula 1,000 ml 30ML/HR GT 01/23/25 18:00 02/12/25 05:27 1,000 ML Pantoprazole Sodium 40 mg BID IV 01/23/25 22:00 02/12/25 10:45 40 MG Sodium Chloride 1,000 ml @ 200 mls/hr Q5H IV 01/25/25 11:00 Cancel Amiodarone HCl 100 mg Q12HR PO 01/25/25 22:00 02/12/25 12:53 100 MG Midazolam HCl 100 ml @ 1 mls/hr Q24H IV 01/25/25 18:00 02/12/25 04:00 5 MLS/HR Levalbuterol HCl 1.25 mg Q4HR NEB 02/02/25 14:30 02/12/25 17:57 1.25 MG Ipratropium [place] 0.5 mg Q4HR NEB 02/02/25 18:00 02/12/25 17:57 0.5 MG Enoxaparin Sodium 70 mg DAILY SC 02/04/25 15:30 02/08/25 12:58 70 MG Metoclopramide HCl 10 mg Q8HR GT 02/07/25 14:00 02/12/25 14:52 10 MG Ertapenem 0.5 gm/ Sodium Chloride 50 ml @ 100 mls/hr HS IV 02/07/25 22:00 02/11/25 21:30 100 MLS/HR Hydralazine HCl 10 mg Q6HP PRN IV 02/07/25 18:15 02/12/25 17:42 10 MG Midodrine 10 mg TID@0600,1200,1800 PO 02/09/25 12:00 02/12/25 06:00 10 MG Norepinephrine Bitartrate 32 mg/ Sodium Chloride 250 ml @ 0.469 mls/ hr Q24H IV 02/10/25 03:30 02/10/25 03:51 1.875 MLS/HR Metoprolol Tartrate 25 mg BID PO 02/11/25 10:00 Hold Vancomycin HCl 0 ml @ 0 mls/hr PER PHARMACY IV 02/11/25 21:30 Diagnostic Test (Pha) 1 strip Q6HR 02/12/25 12:00 02/12/25 18:24 1 STRIP Insulin Human Regular Q6HR SC 02/12/25 12:00 02/12/25 18:18 6 UNITS Dextrose 50 ml UD PRN IV 02/12/25 10:30 Examination Gen - no pallor, no scleral icterus Skin - Patients skin is warm and dry. HEENT - normocephalic, atraumatic, dry mucous membranes. Neck - supple, no lymphadenopathy Pulmonary - improved breath sounds bilaterally cardiovascular - regular S1,S2 heard GI - soft abdomen. Bowel sounds hypoactive. Neurological - sedated and on mechanical ventilation laboratory and microbiology Laboratory Tests 02/12/25 06:55 Test 02/12/25 06:55 Range/Units Serum Glucose 143 H 74-106 mg/dL Microbiology Date/Time Source Procedure Growth Status 02/08/25 13:20 Blood Blood Culture - Preliminary NO GROWTH AFTER 72 HOURS OF INCUBATION. Resulted 02/01/25 05:00 Catheter Tip Aerobic Culture - Final Complete 01/24/25 10:06 Bronchial Washings Gram Stain - Final Complete 01/24/25 10:06 Bronchial Washings Respiratory Culture - Final Complete 01/10/25 09:18 Voided Urine Urine Culture - Final Presumptive Sully albicans Yeast, not Sully albicans Complete Problem List/Assessment/Plan Problem List/Assessment/Plan Assessment Possible GI bleed Sepsis likely from osteomyelitis Acute on chronic systolic heart failure Thrombocytopenia Coagulopathy PAT on CKD likely due to VMN Left upper extremity DVT Cardiopulmonary arrest s/p ROSC Plan - Protonix 40 mg IV b.i.d. - once the patient is hemodynamically stable, she may benefit from EGD - watch H&H, keep hemoglobin above 7 - residual volumes less than 50 mL continue on tube feedings - on therapeutic Lovenox because of atrial fibrillation, increased risk of GI bleeding Poor prognosis Plan discussed with Dr. Salgado Plan discussed with: Other (ALBERTINA Malik) Dietary Evaluation Review Comments: Nutrition Recommendation 1) CCHO 60gm + renal standard diet 2) Nephro-santosh 1 tab daily 3) Lexx 1 pk daily 4) Monitor PO intake, lab values, weight trend, and I/O Expected Outcomes/Goals: To meet >75% estimated needs Wound to improve Fu 3-5 days CC Plasma Assessment Blood Product Administration S: [id number] MERLY THAKUR RESIDENT Feb 12, 2025 18:49
[2025-02-12] MEDS: EPOETIN ALFA-EPBX 4,000 UNIT/ML VIAL SC ONE (21:00)
[2025-02-12] MEDS: SODIUM CHL 0.9% 1000 ML BAG XX ONE (22:20)
--- NOTE | 2025-02-12 23:45 | DVHPN2 ---
[facility] DOS: 02/12/2025 Patient seen and examined at bedside. Sedated, intubated on mechanical ventilator. Overnight events reviewed. Reviewed: Care Plan, H&P Changes from previous H/P or p: No Changes General: Per HPI Objective Vitals Vital Signs Date Time Temp Pulse Resp B/P (MAP) Pulse Ox O2 Delivery O2 Flow Rate FiO2 02/12/25 22:00 62 24 156/33 (74) 100 30 02/12/25 22:00 Mechanical Ventilator+ 02/12/25 16:00 98.2 98.2 Intake/Output Intake and Output 02/12/25 07:00 Intake Total 790.5 ml Output Total 0 ml Balance 790.5 ml Intake Oral 150 ml IV Total 365.5 ml Tube Feeding 275 ml Stool Total 0 ml Exam Gen.: Patient lying in bed in medical ICU. Sedated, intubated on mechanical ventilator. Head: Normocephalic, atraumatic. Eyes: PERRLA. Ears: Normal external anatomy. Throat: Endotracheal tube and orogastric tube in place. Neck: Supple, trachea midline. Chest: Transmitted breath sounds bilaterally. Decreased air entry bilaterally. No wheezing. Bibasilar crackles. Cardiovascular: Positive S1, positive S2. Regular rate and rhythm. Abdomen: Positive bowel sounds in all 4 quadrants. Soft, nontender, nondistended. : Loft[place] in place. Normal external genitalia. Rectal: Deferred. Skin: Warm, dry. Right foot osteomyelitis. Extremities: 2+ radial pulses bilaterally. No lower extremity edema. Neuro: Sedated General Appearance: mild distress, Other (Intubated and sedated) HEENT: Atraumatic, PERRLA Lungs: Clear to auscultation, Other (Mechanical ventilation.) Cardiovascular: Normal S1, Normal S2, Other (Patient now in sinus rhythm, heart rate 65) Abdomen: Normal bowel sounds, Soft, No tenderness, No hepatospenomegaly Musculoskeletal: Other (Unable to assess) Extremities: No clubbing, No cyanosis, No edema, Normal pulses, No tenderness/swelling Neuro: Other (Unable to assess) Skin: Dry, Intact, Wounds (See nurse notes and pictures), Other (Right foot necrosis) Psych/Mental Status: Other (Unable to assess) Medications Current Medications Medications Dose Ordered Sig/Seth Route Start Time Stop Time Status Last Admin Dose Admin Acetaminophen 325 mg Q4HP PRN PO 01/10/25 00:30 02/08/25 12:57 325 MG Ondansetron HCl 4 mg Q4HP PRN IV 01/10/25 00:30 01/20/25 16:19 4 MG Atorvastatin Calcium 40 mg HS PO 01/10/25 22:00 02/12/25 22:19 40 MG Levothyroxine Sodium 125 mcg QAM@0600 PO 01/11/25 06:00 02/12/25 05:14 125 MCG Dextrose 50 ml UD PRN IV 01/14/25 14:15 02/07/25 21:05 50 ML Fluconazole 100 mg POSTDI PRN PO 01/15/25 12:45 Cancel Albumin Human 100 ml @ 100 mls/hr WD PRN IV 01/18/25 21:00 02/03/25 11:36 100 MLS/HR Albuterol 2.5 mg Q4HPRN PRN NEB 01/20/25 16:00 02/09/25 14:24 2.5 MG Vancomycin HCl 0 ml @ 0 mls/hr PER PHARMACY IV 01/21/25 12:15 Cancel Fentanyl Citrate 250 ml @ 2.5 mls/hr Q24H IV 01/23/25 13:45 02/11/25 21:56 10 MLS/HR Enteral Nutritional Formula 1,000 ml 30ML/HR GT 01/23/25 18:00 02/12/25 05:27 1,000 ML Pantoprazole Sodium 40 mg BID IV 01/23/25 22:00 02/12/25 22:17 40 MG Sodium Chloride 1,000 ml @ 200 mls/hr Q5H IV 01/25/25 11:00 Cancel Amiodarone HCl 100 mg Q12HR PO 01/25/25 22:00 02/12/25 22:18 100 MG Midazolam HCl 100 ml @ 1 mls/hr Q24H IV 01/25/25 18:00 02/12/25 20:03 3 MLS/HR Levalbuterol HCl 1.25 mg Q4HR NEB 02/02/25 14:30 02/12/25 22:00 1.25 MG Ipratropium [place] 0.5 mg Q4HR NEB 02/02/25 18:00 02/12/25 22:00 0.5 MG Enoxaparin Sodium 70 mg DAILY SC 02/04/25 15:30 02/08/25 12:58 70 MG Metoclopramide HCl 10 mg Q8HR GT 02/07/25 14:00 02/12/25 22:16 10 MG Ertapenem 0.5 gm/ Sodium Chloride 50 ml @ 100 mls/hr HS IV 02/07/25 22:00 02/11/25 21:30 100 MLS/HR Hydralazine HCl 10 mg Q6HP PRN IV 02/07/25 18:15 02/12/25 17:42 10 MG Midodrine 10 mg TID@0600,1200,1800 PO 02/09/25 12:00 02/12/25 06:00 10 MG Norepinephrine Bitartrate 32 mg/ Sodium Chloride 250 ml @ 0.469 mls/ hr Q24H IV 02/10/25 03:30 02/10/25 03:51 1.875 MLS/HR Metoprolol Tartrate 25 mg BID PO 02/11/25 10:00 Hold Vancomycin HCl 0 ml @ 0 mls/hr PER PHARMACY IV 02/11/25 21:30 Diagnostic Test (Pha) 1 strip Q6HR 02/12/25 12:00 02/12/25 18:24 1 STRIP Insulin Human Regular Q6HR SC 02/12/25 12:00 02/12/25 18:18 6 UNITS Dextrose 50 ml UD PRN IV 02/12/25 10:30 Laboratory Results Laboratory Tests 02/12/25 06:55 Chemistry Test 02/12/25 06:55 Albumin 3.0 g/dL (3.2-4.8) L Calcium Level 9.1 mg/dL (8.7-10.4) Total Protein 5.4 g/dL (5.7-8.2) L LFT Test 02/12/25 06:55 Alanine Aminotransferase (ALT) 44 U/L (7-40) H Alkaline Phosphatase 162 U/L (46-116) H Aspartate Amino Transferase (AST) 54 U/L (13-40) H Total Bilirubin 0.8 mg/dL (0.2-1.0) Urinalysis Test 01/10/25 09:18 Urine Color Yellow (Yellow) Urine Clarity Turbid (Clear) H Urine pH 6.5 (5.0-9.0) Urine Specific [place] 1.019 (1.001-1.035) Urine Protein 2+ (Negative) H Urine Ketones Negative (Negative) Urine Blood Negative /uL (Negative) Urine Nitrite Negative (Negative) Urine Bilirubin Negative (Negative) Urine Urobilinogen Normal mg/dL (Negative) Urine Leukocyte Esterase Trace /uL (Negative) Urine RBC 7 /hpf (0 - 4) Urine Microscopic WBC 4 /HPF (0-5) Urine Squamous Epithelial Cells Few /hpf (<5) Urine Bacteria None seen /hpf (None Seen) Urine Yeast (Budding) Moderate /hpf (None Seen) Urine Glucose 1+ mg/dL (Normal) H Blood Gas Results Test 02/12/25 07:05 Arterial Blood pH 7.407 (7.350-7.450) FiO2 % 35.0 Microbiology Microbiology Date/Time Source Procedure Growth Status 02/08/25 13:20 Blood Blood Culture - Preliminary NO GROWTH AFTER 72 HOURS OF INCUBATION. Resulted 02/01/25 05:00 Catheter Tip Aerobic Culture - Final Complete 01/24/25 10:06 Bronchial Washings Gram Stain - Final Complete 01/24/25 10:06 Bronchial Washings Respiratory Culture - Final Complete 01/10/25 09:18 Voided Urine Urine Culture - Final Presumptive Sully albicans Yeast, not Sully albicans Complete Assessment/Plan Assessment/Plan Impression: Acute hypoxic respiratory failure On mechanical ventilator Acute CHF exacerbation End-stage renal disease, on hemodialysis Osteomyelitis DVT, left upper extremity Overweight Events: Remains on vent support On AC mode; RR 24, VT 400, PEEP 8, FiO2 35% Improved FIO2 requirements Patient noted to desaturate with turns. Hemodialysis per Nephrology Monitor for blood pressure drops during hemodialysis. Sedated on Versed, Fentanyl Off pressors, hemodynamically stable. Monitor blood pressure - midodrine on hold Amiodarone PO for atrial fibrillation with rapid ventricular response Follow up Cardiology recs. Of note, patient had a cardiopulmonary arrest on 02/02/25 for 1 minute, ROSC achieved. Heparin drip due to left upper extremity DVT - currently on hold. Monitor hemoglobin - currently 8.3 g/dL Transfuse if less than 7.0 g/dL. On Lovenox SC. GI plans for EGD. Follow up GI recs Continue bronchodilators. Continue antibiotics - vancomycin per Pharmacy Follow up repeat blood cultures On hydrocortisone Hemodialysis per Nephrology Follow up Nephrology recommendations Monitor renal function Monitor electrolytes. Supplement as necessary. Monitor platelets Accu-Cheks, ISS. Tube feeds for nutritional support DTI sacrum - wound care. Follow up with Podiatry recommendations regarding surgery vs. medical management. CPAP daily if appropriate, as tolerated. Note, patient with overall poor prognosis. High likelihood of demise. Family meeting to address goals of care. CXR on 02/[address]; Stable multifocal patchy bilateral pulmonary airspace disease with mild consolidative features. Small left pleural effusion. Cardiomegaly. CT of RLE demonstrates mild myositis. No CT evidence at this time of osteomyelitis of the right femur. Left upper extremity venous duplex revealed DVT in left axillary and brachial veins. Labs and imaging reviewed. Rest of plan as noted below. Plan: s/p intubation on mechanical ventilator. On AC mode; RR 24, VT 400, PEEP 8, FiO2 35% S/p bronchoscopy on 11/24/24 - Results from bronchial washings show no growth. Titrate FIO2 to keep O2 saturation above 90%. VAP bundle. Daily ABG and CXR while intubated Continue bronchodilators. Continue antibiotics. Follow up cultures. IV steroids Pressors for hemodynamic support Titrate to keep MAP above 65 mmHg/SBP above 90 mmHg. Accu-Cheks, ISS Wound care. Monitor H&H. Hemodialysis per Nephrology Monitor renal function Monitor electrolytes. Supplement as necessary. Monitor ins and outs. Maintain euvolemia. GI prophylaxis. DVT prophylaxis. Prognosis: Poor given patient's multiple co-morbidities. Condition: Critical Rest of plan per hospitalist and other consultants. A total of 35 minutes of critical care time was spent reviewing the patient record, examining the patient, making a diagnostic and therapeutic plan, discussing this plan with the medical personnel, following up on diagnostic studies and following the patient for clinical stability excluding any and all procedures. At least 50% of this time was spent in direct, [id number] contact. Thank you, Dr. Bowie, for allowing me to participate in this patient's care. Further recommendations will depend on the patient's clinical course. Please do not hesitate to contact me if you have any questions or concerns. This medical document was created using an electronic medical record system with [employer] system. Although these documentations are being carefully reviewed, there may still be some phonetic and typographical changes. The errors are purely typographical, due to imperfection on the software program, and do not reflect any compromise in the patient's medical care. Plan discussed with: Other (ALBERTINA Cuello) Visit Coding Pulmonary Billing Provider: ALCON GUTHRIE MD Date of Service if different f: Feb 12, 2025 Common Visit Codes: [id number] INP/OBS CARE(HIGH), [id number] CARE 30-74 MIN ALCON GUTHRIE MD Feb 12, 2025 23:45
[2025-02-13] VITALS (107 sets, daily range): BP systolic 83–159; BP diastolic 17–117; PULSE 60–85; RESP 17–29; TEMP 97.8–98.8; O2SAT 90–100
[2025-02-13 03:19] LABS: Hemoglobin 8.4 g/dL (12.2-16.2); Nucleated Red Blood Cells % 0.0 %
[2025-02-13 03:21] LABS: Hematocrit 25.5 % (36.0-46.0); Mean Corpuscular Hemoglobin 31.4 pg (28.0-32.0); Mean Corpuscular Volume 95.9 fL (80.0-100.0)
[2025-02-13 03:31] LABS: Anion Gap 13 (5-15); BUN/Creatinine Ratio 17.8 (10.0-20.0); Bilirubin, Total 0.7 mg/dL (0.2-1.0); Calcium 9.1 mg/dL (8.7-10.4); Carbon Dioxide 27 mmol/L (20-31); Chloride 103 mmol/L (98-107); Magnesium 2.4 mg/dL (1.6-2.6); Potassium 3.9 mmol/L (3.5-5.1); Sodium 143 mmol/L (136-145)
[2025-02-13 03:33] LABS: Alanine Aminotransferase 47 U/L (7-40); Albumin 3.0 g/dL (3.2-4.8); Alkaline Phosphatase 170 U/L (46-116); Blood Urea Nitrogen 71 mg/dL (9-23); Glucose 249 mg/dL (74-106); Total Protein 5.2 g/dL (5.7-8.2)
--- NOTE | 2025-02-13 04:36 | DVH ---
CHEST RADIOGRAPH Indication: MECHANICAL VENTILATION Technique: Single frontal view of the chest was obtained COMPARISON: XY CHEST XRAY 1 VIEW on DOS: 02/12/25, XY CHEST PORTABLE on DOS: 02/10/25, XY CHEST PORTABLE on DOS: 02/09/25, XY CHEST PORTABLE on DOS: 02/08/25, XY CHEST PORTABLE on DOS: 02/07/25 FINDINGS: ETT terminating 4.1 cm above the rod. Stable mild enlargement of the cardiac silhouette with slight prominence of the pulmonary vasculature. Stable patchy ground-glass opacity throughout both lungs. Overall this has improved slightly on the right. IMPRESSION: Slightly improved aeration of the right lung. Otherwise stable findings.
[2025-02-13 07:30] LABS: Base Excess -1.5 mmol/L (-2.0-3.0)
--- NOTE | 2025-02-13 10:13 | DVHPN2 ---
Subjective Patient chemically sedated Reviewed: Care Plan, H&P Changes from previous H/P or p: No Changes General: Per HPI Objective Vitals Vital Signs Date Time Temp Pulse Resp B/P (MAP) Pulse Ox O2 Delivery O2 Flow Rate FiO2 02/13/25 09:49 73 23 116/46 (69) 96 30 02/13/25 08:00 Mechanical Ventilator+ 02/13/25 04:00 97.8 97.8 Intake/Output Intake and Output 02/13/25 07:00 Intake Total 855.5 ml Output Total 20 ml Balance 835.5 ml Intake Oral 150 ml IV Total 291.5 ml Tube Feeding 414 ml Stool Total 20 ml General Appearance: mild distress, Other (Intubated and sedated) HEENT: Atraumatic, PERRLA Lungs: Clear to auscultation, Other (Mechanical ventilation.) Cardiovascular: Normal S1, Normal S2, Other (Patient now in sinus rhythm, heart rate 65) Abdomen: Normal bowel sounds, Soft, No tenderness, No hepatospenomegaly Musculoskeletal: Other (Unable to assess) Extremities: No clubbing, No cyanosis, No edema, Normal pulses, No tenderness/swelling Neuro: Other (Unable to assess) Skin: Dry, Intact, Wounds (See nurse notes and pictures), Other (Right foot necrosis) Psych/Mental Status: Other (Unable to assess) Medications Current Medications Medications Dose Ordered Sig/Seth Route Start Time Stop Time Status Last Admin Dose Admin Acetaminophen 325 mg Q4HP PRN PO 01/10/25 00:30 02/08/25 12:57 325 MG Ondansetron HCl 4 mg Q4HP PRN IV 01/10/25 00:30 01/20/25 16:19 4 MG Atorvastatin Calcium 40 mg HS PO 01/10/25 22:00 02/12/25 22:19 40 MG Levothyroxine Sodium 125 mcg QAM@0600 PO 01/11/25 06:00 02/13/25 06:17 125 MCG Dextrose 50 ml UD PRN IV 01/14/25 14:15 02/07/25 21:05 50 ML Fluconazole 100 mg POSTDI PRN PO 01/15/25 12:45 Cancel Albumin Human 100 ml @ 100 mls/hr WD PRN IV 01/18/25 21:00 02/03/25 11:36 100 MLS/HR Albuterol 2.5 mg Q4HPRN PRN NEB 01/20/25 16:00 02/09/25 14:24 2.5 MG Vancomycin HCl 0 ml @ 0 mls/hr PER PHARMACY IV 01/21/25 12:15 Cancel Fentanyl Citrate 250 ml @ 2.5 mls/hr Q24H IV 01/23/25 13:45 02/12/25 23:58 7.5 MLS/HR Enteral Nutritional Formula 1,000 ml 30ML/HR GT 01/23/25 18:00 02/12/25 05:27 1,000 ML Pantoprazole Sodium 40 mg BID IV 01/23/25 22:00 02/12/25 22:17 40 MG Sodium Chloride 1,000 ml @ 200 mls/hr Q5H IV 01/25/25 11:00 Cancel Amiodarone HCl 100 mg Q12HR PO 01/25/25 22:00 02/12/25 22:18 100 MG Levalbuterol HCl 1.25 mg Q4HR NEB 02/02/25 14:30 02/13/25 09:59 1.25 MG Ipratropium [place] 0.5 mg Q4HR NEB 02/02/25 18:00 02/13/25 09:59 0.5 MG Metoclopramide HCl 10 mg Q8HR GT 02/07/25 14:00 02/13/25 06:17 10 MG Ertapenem 0.5 gm/ Sodium Chloride 50 ml @ 100 mls/hr HS IV 02/07/25 22:00 02/11/25 21:30 100 MLS/HR Hydralazine HCl 10 mg Q6HP PRN IV 02/07/25 18:15 02/12/25 17:42 10 MG Norepinephrine Bitartrate 32 mg/ Sodium Chloride 250 ml @ 0.469 mls/ hr Q24H IV 02/10/25 03:30 02/10/25 03:51 1.875 MLS/HR Metoprolol Tartrate 25 mg BID PO 02/11/25 10:00 Hold Vancomycin HCl 0 ml @ 0 mls/hr PER PHARMACY IV 02/11/25 21:30 Diagnostic Test (Pha) 1 strip Q6HR 02/12/25 12:00 02/13/25 06:13 1 STRIP Insulin Human Regular Q6HR SC 02/12/25 12:00 02/13/25 06:15 6 UNITS Dextrose 50 ml UD PRN IV 02/12/25 10:30 Laboratory Results Laboratory Tests 02/13/25 02:50 Chemistry Test 02/13/25 02:50 Albumin 3.0 g/dL (3.2-4.8) L Calcium Level 9.1 mg/dL (8.7-10.4) Magnesium Level 2.4 mg/dL (1.6-2.6) Total Protein 5.2 g/dL (5.7-8.2) L LFT Test 02/13/25 02:50 Alanine Aminotransferase (ALT) 47 U/L (7-40) H Alkaline Phosphatase 170 U/L (46-116) H Aspartate Amino Transferase (AST) 49 U/L (13-40) H Total Bilirubin 0.7 mg/dL (0.2-1.0) Urinalysis Test 01/10/25 09:18 Urine Color Yellow (Yellow) Urine Clarity Turbid (Clear) H Urine pH 6.5 (5.0-9.0) Urine Specific [place] 1.019 (1.001-1.035) Urine Protein 2+ (Negative) H Urine Ketones Negative (Negative) Urine Blood Negative /uL (Negative) Urine Nitrite Negative (Negative) Urine Bilirubin Negative (Negative) Urine Urobilinogen Normal mg/dL (Negative) Urine Leukocyte Esterase Trace /uL (Negative) Urine RBC 7 /hpf (0 - 4) Urine Microscopic WBC 4 /HPF (0-5) Urine Squamous Epithelial Cells Few /hpf (<5) Urine Bacteria None seen /hpf (None Seen) Urine Yeast (Budding) Moderate /hpf (None Seen) Urine Glucose 1+ mg/dL (Normal) H Blood Gas Results Test 02/13/25 07:16 Arterial Blood pH 7.389 (7.350-7.450) FiO2 % 30.0 Microbiology Microbiology Date/Time Source Procedure Growth Status 02/08/25 13:20 Blood Blood Culture - Preliminary NO GROWTH AFTER 72 HOURS OF INCUBATION. Resulted 02/01/25 05:00 Catheter Tip Aerobic Culture - Final Complete 01/24/25 10:06 Bronchial Washings Gram Stain - Final Complete 01/24/25 10:06 Bronchial Washings Respiratory Culture - Final Complete 01/10/25 09:18 Voided Urine Urine Culture - Final Presumptive Sully albicans Yeast, not Sully albicans Complete Labs and/or images reviewed: Labs reviewed by me, Image(s) reviewed by me Assessment/Plan Assessment/Plan Impression: -septic shock -right foot osteomyelitis -peripheral arterial disease -acute hypoxic respiratory failure -acute on chronic systolic and diastolic heart failure -end-stage renal disease with hemodialysis -diabetes mellitus Plan: Events: Discussed case with Podiatry. Recommends evaluation for BKA. Patient placed on CPAP, with pressures of 12/8. Patient continues to not follow any commands, but noted spontaneous breathing. Patient has worsening thrombocytopenia, persistent anemia. Continues to be in sinus rhythm. Hold anticoagulation at this time. -continue current ventilator settings. Wean FiO2 to keep saturation greater than 92% -pulmonology consultation: Recommendations reviewed. Assess appropriateness for weaning trial. If patient unsuccessful, we will recommend tracheostomy. -nephrology consultation: Recommendations reviewed. -cardiology consultation: Recommendations reviewed -regular insulin sliding scale -repeat labs, ABG, and chest x-ray in a.m. -plan of care will be discussed with the patient's family regarding plan of care. If they are agreeable to BKA, surgeon will be consulted. Critical care time spent with patient discussing and formulating plan of care: 90 minutes. This does not include time spent performing procedures. This medical document was created using an electronic medical record system with [employer] dictation system. Although this document has been carefully reviewed, there may still be some phonetic and typographical errors. These areas are purely typographical due to imperfections of the software programs, and do not reflect any compromise in the patient's medical care. Plan discussed with: Patient, Other (RN) My Orders Orders - TERRY REDD NP Procedure Category Date Status Time *Podiatry Consult CONS 02/12/25 Transmitted Musson(Dvmg) 10:21 Glucose Blood PHA 02/12/25 In Process (Accu-Chek Comfort 12:00 Insulin R (Human) PHA 02/12/25 In Process (Insulin R) 12:00 Dextrose 50% Syringe PHA 02/12/25 In Process 10:30 Cpap/Sed Vacation Med ORDERS 02/12/25 Transmitted Weaning 10:21 Chest Portable XY 02/13/25 Resulted 04:00 Abg W/ Co-Ox RT 02/13/25 Logged 06:00 Cpap Trial For Am ORDERS 02/13/25 Transmitted 09:53 Date of Service: Feb 13, 2025 Billing Provider: TERRY REDD NP Common Visit Codes: [id number] CARE 30-74 MIN TERRY REDD NP Feb 13, 2025 10:13
--- NOTE | 2025-02-13 11:26 | ECG ---
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
--- NOTE | 2025-02-13 13:47 | DVHPN2 ---
Progress Note - Dictate Date Seen: Feb 13, 2025 Medical Necessity Reason Pt with a Central, PICC or Fol: Yes The following are medically ne: Central Line, [place] Catheter Subjective Patient on the ventilator CPAP trial vital signs Vital Sign Date Time Temp Pulse Resp B/P (MAP) Pulse Ox O2 Delivery O2 Flow Rate FiO2 02/13/25 12:15 72 29 108/24 (52) 97 110/47 (68) 02/13/25 12:00 30 02/13/25 12:00 Mechanical Ventilator+ 02/13/25 04:00 97.8 97.8 Total Intake and Output 02/12/25 02/12/25 02/13/25 15:00 23:00 07:00 Intake Total 104 ml 517.5 ml 234.0 ml Output Total 20 ml Balance 104 ml 497.5 ml 234.0 ml medications Current Medications Medications Dose Ordered Sig/Seth Route Start Time Stop Time Status Last Admin Dose Admin Acetaminophen 325 mg Q4HP PRN PO 01/10/25 00:30 02/08/25 12:57 325 MG Ondansetron HCl 4 mg Q4HP PRN IV 01/10/25 00:30 01/20/25 16:19 4 MG Atorvastatin Calcium 40 mg HS PO 01/10/25 22:00 02/12/25 22:19 40 MG Levothyroxine Sodium 125 mcg QAM@0600 PO 01/11/25 06:00 02/13/25 06:17 125 MCG Dextrose 50 ml UD PRN IV 01/14/25 14:15 02/07/25 21:05 50 ML Fluconazole 100 mg POSTDI PRN PO 01/15/25 12:45 Cancel Albumin Human 100 ml @ 100 mls/hr WD PRN IV 01/18/25 21:00 02/03/25 11:36 100 MLS/HR Albuterol 2.5 mg Q4HPRN PRN NEB 01/20/25 16:00 02/09/25 14:24 2.5 MG Vancomycin HCl 0 ml @ 0 mls/hr PER PHARMACY IV 01/21/25 12:15 Cancel Fentanyl Citrate 250 ml @ 2.5 mls/hr Q24H IV 01/23/25 13:45 02/12/25 23:58 7.5 MLS/HR Enteral Nutritional Formula 1,000 ml 30ML/HR GT 01/23/25 18:00 02/12/25 05:27 1,000 ML Pantoprazole Sodium 40 mg BID IV 01/23/25 22:00 02/13/25 11:12 40 MG Sodium Chloride 1,000 ml @ 200 mls/hr Q5H IV 01/25/25 11:00 Cancel Amiodarone HCl 100 mg Q12HR PO 01/25/25 22:00 02/13/25 11:13 100 MG Levalbuterol HCl 1.25 mg Q4HR NEB 02/02/25 14:30 02/13/25 09:59 1.25 MG Ipratropium [place] 0.5 mg Q4HR NEB 02/02/25 18:00 02/13/25 09:59 0.5 MG Metoclopramide HCl 10 mg Q8HR GT 02/07/25 14:00 02/13/25 13:40 10 MG Ertapenem 0.5 gm/ Sodium Chloride 50 ml @ 100 mls/hr HS IV 02/07/25 22:00 02/11/25 21:30 100 MLS/HR Hydralazine HCl 10 mg Q6HP PRN IV 02/07/25 18:15 02/12/25 17:42 10 MG Norepinephrine Bitartrate 32 mg/ Sodium Chloride 250 ml @ 0.469 mls/ hr Q24H IV 02/10/25 03:30 02/10/25 03:51 1.875 MLS/HR Metoprolol Tartrate 25 mg BID PO 02/11/25 10:00 Hold Vancomycin HCl 0 ml @ 0 mls/hr PER PHARMACY IV 02/11/25 21:30 Diagnostic Test (Pha) 1 strip Q6HR 02/12/25 12:00 02/13/25 13:39 1 STRIP Insulin Human Regular Q6HR SC 02/12/25 12:00 02/13/25 13:40 2 UNITS Dextrose 50 ml UD PRN IV 02/12/25 10:30 objective HEENT: ET tube in place Pulmonary: Diminished on auscultation bilaterally Cardiovascular S1-S2, no S3 or S4 Abdomen: Bowel sounds positive, soft no rebound tenderness Skin: No rash Neurological: Sedated Right foot dressed Hemodialysis access right upper arm AV fistula positive bruit and thrill laboratory and microbiology Laboratory Tests 02/13/25 02:50 Test 02/13/25 02:50 Range/Units Serum Glucose 249 H 74-106 mg/dL Assessment/Plan Assessment: ESRD on HD Acute hypoxic respiratory failure requiring intubation Shock secondary to sepsis Right lower extremity cellulitis Peripheral vascular disease Pneumonia DM hypothyroidism Anemia Hyperphosphatemia Secondary hyperparathyroidism Thrombocytopenia Plan and recommendations Continue dialysis TTS Possible extubation today Currently of the pressors, use pressors p.r.n. On amiodarone for AFib. Pulmonary consult following Renally dose antibiotics for GFR less than 10 mL/minute CT of lower extremity noted. Possible amputation we will be required Guarded prognosis Thank you very much for allowing us to participate in the care of this patient Dietary Evaluation Review Comments: Nutrition Recommendation 1) CCHO 60gm + renal standard diet 2) Nephro-santosh 1 tab daily 3) Lexx 1 pk daily 4) Monitor PO intake, lab values, weight trend, and I/O Expected Outcomes/Goals: To meet >75% estimated needs Wound to improve Fu 3-5 days Plan discussed with: Patient CC Plasma Assessment Blood Product Administration S: [id number] JOSÉ LUIS TAM MD Feb 13, 2025 13:47
--- NOTE | 2025-02-13 17:05 | DVHPN2 ---
Progress Note Date Seen: Feb 13, 2025 Resident Creating Document: MERLY THAKUR RESIDENT Medical Necessity Reason Pt with a Central, PICC or Fol: Yes The following are medically ne: Central Line, [place] Catheter Subjective Review of Systems Patient seen and examined at bedside Weaned off sedation but continues to be on mechanical ventilation H&H stable, tolerating NG feeding well with minimal residuals Brownish stool seen in the rectal tube Abdomen is soft Objective vital signs Vital Sign Date Time Temp Pulse Resp B/P (MAP) Pulse Ox O2 Delivery O2 Flow Rate FiO2 02/13/25 15:59 80 25 129/59 (82) 99 30 02/13/25 14:00 Mechanical Ventilator+ 02/13/25 12:30 98.1 98.1 Total Intake and Output 02/12/25 02/12/25 02/13/25 15:00 23:00 07:00 Intake Total 104 ml 517.5 ml 234.0 ml Output Total 20 ml Balance 104 ml 497.5 ml 234.0 ml medications Current Medications Medications Dose Ordered Sig/Seth Route Start Time Stop Time Status Last Admin Dose Admin Acetaminophen 325 mg Q4HP PRN PO 01/10/25 00:30 02/08/25 12:57 325 MG Ondansetron HCl 4 mg Q4HP PRN IV 01/10/25 00:30 01/20/25 16:19 4 MG Atorvastatin Calcium 40 mg HS PO 01/10/25 22:00 02/12/25 22:19 40 MG Levothyroxine Sodium 125 mcg QAM@0600 PO 01/11/25 06:00 02/13/25 06:17 125 MCG Dextrose 50 ml UD PRN IV 01/14/25 14:15 02/07/25 21:05 50 ML Fluconazole 100 mg POSTDI PRN PO 01/15/25 12:45 Cancel Albumin Human 100 ml @ 100 mls/hr WD PRN IV 01/18/25 21:00 02/03/25 11:36 100 MLS/HR Albuterol 2.5 mg Q4HPRN PRN NEB 01/20/25 16:00 02/09/25 14:24 2.5 MG Vancomycin HCl 0 ml @ 0 mls/hr PER PHARMACY IV 01/21/25 12:15 Cancel Fentanyl Citrate 250 ml @ 2.5 mls/hr Q24H IV 01/23/25 13:45 02/12/25 23:58 7.5 MLS/HR Enteral Nutritional Formula 1,000 ml 30ML/HR GT 01/23/25 18:00 02/13/25 13:59 1,000 ML Pantoprazole Sodium 40 mg BID IV 01/23/25 22:00 02/13/25 11:12 40 MG Sodium Chloride 1,000 ml @ 200 mls/hr Q5H IV 01/25/25 11:00 Cancel Amiodarone HCl 100 mg Q12HR PO 01/25/25 22:00 02/13/25 11:13 100 MG Levalbuterol HCl 1.25 mg Q4HR NEB 02/02/25 14:30 02/13/25 13:48 1.25 MG Ipratropium [place] 0.5 mg Q4HR NEB 02/02/25 18:00 02/13/25 13:48 0.5 MG Metoclopramide HCl 10 mg Q8HR GT 02/07/25 14:00 02/13/25 13:40 10 MG Ertapenem 0.5 gm/ Sodium Chloride 50 ml @ 100 mls/hr HS IV 02/07/25 22:00 02/11/25 21:30 100 MLS/HR Hydralazine HCl 10 mg Q6HP PRN IV 02/07/25 18:15 02/12/25 17:42 10 MG Norepinephrine Bitartrate 32 mg/ Sodium Chloride 250 ml @ 0.469 mls/ hr Q24H IV 02/10/25 03:30 02/13/25 15:04 0.469 MLS/HR Metoprolol Tartrate 25 mg BID PO 02/11/25 10:00 Hold Vancomycin HCl 0 ml @ 0 mls/hr PER PHARMACY IV 02/11/25 21:30 Diagnostic Test (Pha) 1 strip Q6HR 02/12/25 12:00 02/13/25 13:39 1 STRIP Insulin Human Regular Q6HR SC 02/12/25 12:00 02/13/25 13:40 2 UNITS Dextrose 50 ml UD PRN IV 02/12/25 10:30 Examination Gen - no pallor, no scleral icterus Skin - Patients skin is warm and dry. HEENT - normocephalic, atraumatic, dry mucous membranes. Neck - supple, no lymphadenopathy Pulmonary - improved breath sounds bilaterally cardiovascular - regular S1,S2 heard GI - soft abdomen. Bowel sounds normoactive. Neurological - sedated and on mechanical ventilation laboratory and microbiology Laboratory Tests 02/13/25 02:50 Test 02/13/25 02:50 Range/Units Serum Glucose 249 H 74-106 mg/dL Microbiology Date/Time Source Procedure Growth Status 02/08/25 13:20 Blood Blood Culture - Final NO GROWTH AFTER 5 DAYS OF INCUBATION. Complete 02/01/25 05:00 Catheter Tip Aerobic Culture - Final Complete 01/24/25 10:06 Bronchial Washings Gram Stain - Final Complete 01/24/25 10:06 Bronchial Washings Respiratory Culture - Final Complete 01/10/25 09:18 Voided Urine Urine Culture - Final Presumptive Sully albicans Yeast, not Sully albicans Complete Problem List/Assessment/Plan Problem List/Assessment/Plan Assessment Possible GI bleed Sepsis likely from osteomyelitis Acute on chronic systolic heart failure Thrombocytopenia Coagulopathy PAT on CKD likely due to VMN Left upper extremity DVT Cardiopulmonary arrest s/p ROSC Plan - Protonix 40 mg IV b.i.d. - once the patient is hemodynamically stable, she may benefit from EGD - watch H&H, keep hemoglobin above 7 - residual volumes minimal, continue on tube feedings - on therapeutic Lovenox because of atrial fibrillation, increased risk of GI bleeding Poor prognosis We will sign off from this case as currently no GI intervention is needed Recall if needed Thank you for consulting Plan discussed with Dr. Soto Plan discussed with: Other (ALBERTINA Malik) Dietary Evaluation Review Comments: Nutrition Recommendation 1) CCHO 60gm + renal standard diet 2) Nephro-santosh 1 tab daily 3) Lexx 1 pk daily 4) Monitor PO intake, lab values, weight trend, and I/O Expected Outcomes/Goals: To meet >75% estimated needs Wound to improve Fu 3-5 days CC Plasma Assessment Blood Product Administration S: [id number] MERLY THAKUR RESIDENT Feb 13, 2025 17:05
--- NOTE | 2025-02-13 23:44 | DVHPN2 ---
[facility] DOS: 02/13/2025 Patient seen and examined at bedside. Intubated on mechanical ventilator. Overnight events reviewed. Reviewed: Care Plan, H&P Changes from previous H/P or p: No Changes General: Per HPI Objective Vitals Vital Signs Date Time Temp Pulse Resp B/P (MAP) Pulse Ox O2 Delivery O2 Flow Rate FiO2 02/13/25 21:41 82 27 152/58 (89) 92 30 02/13/25 20:00 98.8 98.8 02/13/25 18:00 Mechanical Ventilator+ Intake/Output Intake and Output 02/13/25 07:00 Intake Total 855.5 ml Output Total 20 ml Balance 835.5 ml Intake Oral 150 ml IV Total 291.5 ml Tube Feeding 414 ml Stool Total 20 ml Exam Gen.: Patient lying in bed in medical ICU. Intubated on mechanical ventilator. Head: Normocephalic, atraumatic. Eyes: PERRLA. Ears: Normal external anatomy. Throat: Endotracheal tube and orogastric tube in place. Neck: Supple, trachea midline. Chest: Transmitted breath sounds bilaterally. Decreased air entry bilaterally. No wheezing. Bibasilar crackles. Cardiovascular: Positive S1, positive S2. Regular rate and rhythm. Abdomen: Positive bowel sounds in all 4 quadrants. Soft, nontender, nondistended. : Lofton in place. Normal external genitalia. Rectal: Deferred. Skin: Warm, dry. Right foot osteomyelitis. Extremities: 2+ radial pulses bilaterally. No lower extremity edema. Neuro: Off sedation General Appearance: mild distress, Other (Intubated and sedated) HEENT: Atraumatic, PERRLA Lungs: Clear to auscultation, Other (Mechanical ventilation.) Cardiovascular: Normal S1, Normal S2, Other (Patient now in sinus rhythm, heart rate 65) Abdomen: Normal bowel sounds, Soft, No tenderness, No hepatospenomegaly Musculoskeletal: Other (Unable to assess) Extremities: No clubbing, No cyanosis, No edema, Normal pulses, No tenderness/swelling Neuro: Other (Unable to assess) Skin: Dry, Intact, Wounds (See nurse notes and pictures), Other (Right foot necrosis) Psych/Mental Status: Other (Unable to assess) Medications Current Medications Medications Dose Ordered Sig/Seth Route Start Time Stop Time Status Last Admin Dose Admin Acetaminophen 325 mg Q4HP PRN PO 01/10/25 00:30 02/08/25 12:57 325 MG Ondansetron HCl 4 mg Q4HP PRN IV 01/10/25 00:30 01/20/25 16:19 4 MG Atorvastatin Calcium 40 mg HS PO 01/10/25 22:00 02/13/25 22:00 40 MG Levothyroxine Sodium 125 mcg QAM@0600 PO 01/11/25 06:00 02/13/25 06:17 125 MCG Dextrose 50 ml UD PRN IV 01/14/25 14:15 02/07/25 21:05 50 ML Fluconazole 100 mg POSTDI PRN PO 01/15/25 12:45 Cancel Albumin Human 100 ml @ 100 mls/hr WD PRN IV 01/18/25 21:00 02/13/25 19:00 100 MLS/HR Albuterol 2.5 mg Q4HPRN PRN NEB 01/20/25 16:00 02/09/25 14:24 2.5 MG Vancomycin HCl 0 ml @ 0 mls/hr PER PHARMACY IV 01/21/25 12:15 Cancel Fentanyl Citrate 250 ml @ 2.5 mls/hr Q24H IV 01/23/25 13:45 02/12/25 23:58 7.5 MLS/HR Enteral Nutritional Formula 1,000 ml 30ML/HR GT 01/23/25 18:00 02/13/25 13:59 1,000 ML Pantoprazole Sodium 40 mg BID IV 01/23/25 22:00 02/13/25 22:00 40 MG Sodium Chloride 1,000 ml @ 200 mls/hr Q5H IV 01/25/25 11:00 Cancel Amiodarone HCl 100 mg Q12HR PO 01/25/25 22:00 02/13/25 22:00 100 MG Levalbuterol HCl 1.25 mg Q4HR NEB 02/02/25 14:30 02/13/25 21:41 1.25 MG Ipratropium [place] 0.5 mg Q4HR NEB 02/02/25 18:00 02/13/25 21:41 0.5 MG Metoclopramide HCl 10 mg Q8HR GT 02/07/25 14:00 02/13/25 22:00 10 MG Ertapenem 0.5 gm/ Sodium Chloride 50 ml @ 100 mls/hr HS IV 02/07/25 22:00 02/13/25 22:03 100 MLS/HR Hydralazine HCl 10 mg Q6HP PRN IV 02/07/25 18:15 02/12/25 17:42 10 MG Norepinephrine Bitartrate 32 mg/ Sodium Chloride 250 ml @ 0.469 mls/ hr Q24H IV 02/10/25 03:30 02/13/25 15:04 0.469 MLS/HR Metoprolol Tartrate 25 mg BID PO 02/11/25 10:00 Hold Vancomycin HCl 0 ml @ 0 mls/hr PER PHARMACY IV 02/11/25 21:30 Diagnostic Test (Pha) 1 strip Q6HR 02/12/25 12:00 02/13/25 18:53 1 STRIP Insulin Human Regular Q6HR SC 02/12/25 12:00 02/13/25 13:40 2 UNITS Dextrose 50 ml UD PRN IV 02/12/25 10:30 Laboratory Results Laboratory Tests 02/13/25 02:50 Chemistry Test 02/13/25 02:50 Albumin 3.0 g/dL (3.2-4.8) L Calcium Level 9.1 mg/dL (8.7-10.4) Magnesium Level 2.4 mg/dL (1.6-2.6) Total Protein 5.2 g/dL (5.7-8.2) L LFT Test 02/13/25 02:50 Alanine Aminotransferase (ALT) 47 U/L (7-40) H Alkaline Phosphatase 170 U/L (46-116) H Aspartate Amino Transferase (AST) 49 U/L (13-40) H Total Bilirubin 0.7 mg/dL (0.2-1.0) Urinalysis Test 01/10/25 09:18 Urine Color Yellow (Yellow) Urine Clarity Turbid (Clear) H Urine pH 6.5 (5.0-9.0) Urine Specific [place] 1.019 (1.001-1.035) Urine Protein 2+ (Negative) H Urine Ketones Negative (Negative) Urine Blood Negative /uL (Negative) Urine Nitrite Negative (Negative) Urine Bilirubin Negative (Negative) Urine Urobilinogen Normal mg/dL (Negative) Urine Leukocyte Esterase Trace /uL (Negative) Urine RBC 7 /hpf (0 - 4) Urine Microscopic WBC 4 /HPF (0-5) Urine Squamous Epithelial Cells Few /hpf (<5) Urine Bacteria None seen /hpf (None Seen) Urine Yeast (Budding) Moderate /hpf (None Seen) Urine Glucose 1+ mg/dL (Normal) H Blood Gas Results Test 02/13/25 07:16 Arterial Blood pH 7.389 (7.350-7.450) FiO2 % 30.0 Microbiology Microbiology Date/Time Source Procedure Growth Status 02/08/25 13:20 Blood Blood Culture - Final NO GROWTH AFTER 5 DAYS OF INCUBATION. Complete 02/01/25 05:00 Catheter Tip Aerobic Culture - Final Complete 01/24/25 10:06 Bronchial Washings Gram Stain - Final Complete 01/24/25 10:06 Bronchial Washings Respiratory Culture - Final Complete 01/10/25 09:18 Voided Urine Urine Culture - Final Presumptive Sully albicans Yeast, not Sully albicans Complete Assessment/Plan Assessment/Plan Impression: Acute hypoxic respiratory failure On mechanical ventilator Acute CHF exacerbation End-stage renal disease, on hemodialysis Osteomyelitis DVT, left upper extremity Overweight Events: Remains on vent support On AC mode; RR 24, VT 400, PEEP 8, FiO2 30% Improved FIO2 requirements Patient noted to desaturate with turns. Off sedation Currently on pressors for hemodynamic support Levophed 0.5 mcg/min Titrate to keep MAP above 65 mmHg/SBP above 90 mmHg. Hemodialysis per Nephrology - pt undergoing HD this PM. Monitor for blood pressure drops during hemodialysis. Monitor blood pressure - midodrine on hold Amiodarone PO for atrial fibrillation with rapid ventricular response Follow up Cardiology recs. Of note, patient had a cardiopulmonary arrest on 02/02/25 for 1 minute, ROSC achieved. Heparin drip due to left upper extremity DVT - currently on hold. Monitor hemoglobin - stable at 8.4 g/dL Transfuse if less than 7.0 g/dL. On Lovenox SC. GI plans for EGD. Follow up GI recs Continue bronchodilators. Continue antibiotics - vancomycin per Pharmacy Follow up repeat blood cultures On hydrocortisone Hemodialysis per Nephrology Follow up Nephrology recommendations Monitor renal function Monitor electrolytes. Supplement as necessary. Monitor platelets Accu-Cheks, ISS. Tube feeds for nutritional support DTI sacrum - wound care. Follow up with Podiatry recommendations regarding surgery vs. medical management. CPAP daily if appropriate, as tolerated. Recommend trach/PEG vs. LTAC. Note, patient with overall poor prognosis. High likelihood of demise. Awaiting family decision on goals of care. CXR on 02/[address]; Stable multifocal patchy bilateral pulmonary airspace disease with mild consolidative features. Small left pleural effusion. Cardiomegaly. CT of RLE demonstrates mild myositis. No CT evidence at this time of osteomyelitis of the right femur. Left upper extremity venous duplex revealed DVT in left axillary and brachial veins. Labs and imaging reviewed. Rest of plan as noted below. Plan: s/p intubation on mechanical ventilator. On AC mode; RR 24, VT 400, PEEP 8, FiO2 30% S/p bronchoscopy on 11/24/24 - Results from bronchial washings show no growth. Titrate FIO2 to keep O2 saturation above 90%. VAP bundle. Daily ABG and CXR while intubated Continue bronchodilators. Continue antibiotics. Follow up cultures. IV steroids Pressors for hemodynamic support Titrate to keep MAP above 65 mmHg/SBP above 90 mmHg. Accu-Cheks, ISS Wound care. Monitor H&H. Hemodialysis per Nephrology Monitor renal function Monitor electrolytes. Supplement as necessary. Monitor ins and outs. Maintain euvolemia. GI prophylaxis. DVT prophylaxis. Prognosis: Poor given patient's multiple co-morbidities. Condition: Critical Rest of plan per hospitalist and other consultants. A total of 35 minutes of critical care time was spent reviewing the patient record, examining the patient, making a diagnostic and therapeutic plan, discussing this plan with the medical personnel, following up on diagnostic studies and following the patient for clinical stability excluding any and all procedures. At least 50% of this time was spent in direct, [id number] contact. Thank you, Dr. Bowie, for allowing me to participate in this patient's care. Further recommendations will depend on the patient's clinical course. Please do not hesitate to contact me if you have any questions or concerns. This medical document was created using an electronic medical record system with [employer] system. Although these documentations are being carefully reviewed, there may still be some phonetic and typographical changes. The errors are purely typographical, due to imperfection on the software program, and do not reflect any compromise in the patient's medical care. Plan discussed with: Other (ALBERTINA Malik) Visit Coding Pulmonary Billing Provider: ALCON GUTHRIE MD Date of Service if different f: Feb 13, 2025 Common Visit Codes: [id number] INP/OBS CARE(HIGH), [id number] CARE 30-74 MIN ALCON GUTHRIE MD Feb 13, 2025 23:44
[2025-02-14] VITALS (112 sets, daily range): BP systolic 62–176; BP diastolic 12–65; PULSE 71–143; RESP 15–31; TEMP 97.5–100.9; O2SAT 89–100
[2025-02-14 03:27] LABS: Hematocrit 23.6 % (36.0-46.0); Hemoglobin 7.7 g/dL (12.2-16.2); Mean Corpuscular Hemoglobin 31.0 pg (28.0-32.0); Mean Corpuscular Volume 95.0 fL (80.0-100.0); Nucleated Red Blood Cells % 0.7 %
[2025-02-14 03:44] LABS: Anion Gap 15 (5-15); BUN/Creatinine Ratio 21.2 (10.0-20.0); Carbon Dioxide 25 mmol/L (20-31); Chloride 104 mmol/L (98-107); Magnesium 2.1 mg/dL (1.6-2.6); Potassium 3.9 mmol/L (3.5-5.1); Sodium 144 mmol/L (136-145)
[2025-02-14 03:45] LABS: Alanine Aminotransferase 50 U/L (7-40); Albumin 2.8 g/dL (3.2-4.8); Alkaline Phosphatase 196 U/L (46-116); Bilirubin, Total 0.9 mg/dL (0.2-1.0); Calcium 8.5 mg/dL (8.7-10.4); Glucose 167 mg/dL (74-106); Total Protein 4.8 g/dL (5.7-8.2)
[2025-02-14 03:46] LABS: Blood Urea Nitrogen 80 mg/dL (9-23)
--- NOTE | 2025-02-14 05:01 | DVH ---
CHEST RADIOGRAPH Indication: MECHANICAL VENTILATION Technique: Single frontal view of the chest was obtained COMPARISON: XY CHEST PORTABLE on DOS: 02/13/25, XY CHEST XRAY 1 VIEW on DOS: 02/12/25, XY CHEST PORTABLE on DOS: 02/10/25, XY CHEST PORTABLE on DOS: 02/09/25, XY CHEST PORTABLE on DOS: 02/08/25 FINDINGS: Lines and Tubes: Endotracheal tube, enteric catheter and left chest pacemaker in satisfactory position. Lungs: Increased multifocal airspace disease. Pleura: No effusion. No pneumothorax. Cardiomediastinal contours: Cardiomegaly. Bones: Unremarkable IMPRESSION: Increased multifocal airspace disease.
[2025-02-14 06:41] LABS: Base Excess -1.5 mmol/L (-2.0-3.0)
[2025-02-14] MEDS: MIDAZOLAM DRIP 100 mg/100mL NS 100 ML IV SCH (08:00)
--- NOTE | 2025-02-14 10:17 | DVHPN2 ---
Subjective Patient chemically sedated Reviewed: Care Plan, H&P Changes from previous H/P or p: No Changes General: Per HPI Objective Vitals Vital Signs Date Time Temp Pulse Resp B/P (MAP) Pulse Ox O2 Delivery O2 Flow Rate FiO2 02/14/25 10:00 24 95 Mechanical Ventilator+ 60 60 02/14/25 09:04 75 114/47 (69) 02/14/25 04:56 98.6 98.6 Intake/Output Intake and Output 02/14/25 07:00 Intake Total 427.5 ml Output Total 220 ml Balance 207.5 ml Intake Oral 120 ml IV Total 67.5 ml Tube Feeding 240 ml Stool Total 220 ml General Appearance: mild distress, Other (Intubated and sedated) HEENT: Atraumatic, PERRLA Lungs: Clear to auscultation, Other (Mechanical ventilation.) Cardiovascular: Normal S1, Normal S2, Other (Patient now in sinus rhythm, heart rate 65) Abdomen: Normal bowel sounds, Soft, No tenderness, No hepatospenomegaly Musculoskeletal: Other (Unable to assess) Extremities: No clubbing, No cyanosis, No edema, Normal pulses, No tenderness/swelling Neuro: Other (Unable to assess) Skin: Dry, Intact, Wounds (See nurse notes and pictures), Other (Right foot necrosis) Psych/Mental Status: Other (Unable to assess) Medications Current Medications Medications Dose Ordered Sig/Seth Route Start Time Stop Time Status Last Admin Dose Admin Acetaminophen 325 mg Q4HP PRN PO 01/10/25 00:30 02/08/25 12:57 325 MG Ondansetron HCl 4 mg Q4HP PRN IV 01/10/25 00:30 01/20/25 16:19 4 MG Atorvastatin Calcium 40 mg HS PO 01/10/25 22:00 02/13/25 22:00 40 MG Levothyroxine Sodium 125 mcg QAM@0600 PO 01/11/25 06:00 02/14/25 06:01 125 MCG Dextrose 50 ml UD PRN IV 01/14/25 14:15 02/07/25 21:05 50 ML Fluconazole 100 mg POSTDI PRN PO 01/15/25 12:45 Cancel Albumin Human 100 ml @ 100 mls/hr WD PRN IV 01/18/25 21:00 02/13/25 19:00 100 MLS/HR Albuterol 2.5 mg Q4HPRN PRN NEB 01/20/25 16:00 02/14/25 09:03 2.5 MG Vancomycin HCl 0 ml @ 0 mls/hr PER PHARMACY IV 01/21/25 12:15 Cancel Fentanyl Citrate 250 ml @ 2.5 mls/hr Q24H IV 01/23/25 13:45 02/12/25 23:58 7.5 MLS/HR Enteral Nutritional Formula 1,000 ml 30ML/HR GT 01/23/25 18:00 02/13/25 13:59 1,000 ML Pantoprazole Sodium 40 mg BID IV 01/23/25 22:00 02/13/25 22:00 40 MG Sodium Chloride 1,000 ml @ 200 mls/hr Q5H IV 01/25/25 11:00 Cancel Amiodarone HCl 100 mg Q12HR PO 01/25/25 22:00 02/13/25 22:00 100 MG Levalbuterol HCl 1.25 mg Q4HR NEB 02/02/25 14:30 02/14/25 09:03 1.25 MG Ipratropium [place] 0.5 mg Q4HR NEB 02/02/25 18:00 02/14/25 09:04 0.5 MG Metoclopramide HCl 10 mg Q8HR GT 02/07/25 14:00 02/14/25 06:01 10 MG Ertapenem 0.5 gm/ Sodium Chloride 50 ml @ 100 mls/hr HS IV 02/07/25 22:00 02/13/25 22:03 100 MLS/HR Hydralazine HCl 10 mg Q6HP PRN IV 02/07/25 18:15 02/12/25 17:42 10 MG Norepinephrine Bitartrate 32 mg/ Sodium Chloride 250 ml @ 0.469 mls/ hr Q24H IV 02/10/25 03:30 02/13/25 15:04 0.469 MLS/HR Metoprolol Tartrate 25 mg BID PO 02/11/25 10:00 Hold Vancomycin HCl 0 ml @ 0 mls/hr PER PHARMACY IV 02/11/25 21:30 Diagnostic Test (Pha) 1 strip Q6HR 02/12/25 12:00 02/14/25 06:02 1 STRIP Insulin Human Regular Q6HR SC 02/12/25 12:00 02/14/25 06:07 3 UNITS Dextrose 50 ml UD PRN IV 02/12/25 10:30 Laboratory Results Laboratory Tests 02/14/25 02:55 Chemistry Test 02/14/25 02:55 Albumin 2.8 g/dL (3.2-4.8) L Calcium Level 8.5 mg/dL (8.7-10.4) L Magnesium Level 2.1 mg/dL (1.6-2.6) Total Protein 4.8 g/dL (5.7-8.2) L LFT Test 02/14/25 02:55 Alanine Aminotransferase (ALT) 50 U/L (7-40) H Alkaline Phosphatase 196 U/L (46-116) H Aspartate Amino Transferase (AST) 59 U/L (13-40) H Total Bilirubin 0.9 mg/dL (0.2-1.0) Urinalysis Test 01/10/25 09:18 Urine Color Yellow (Yellow) Urine Clarity Turbid (Clear) H Urine pH 6.5 (5.0-9.0) Urine Specific [place] 1.019 (1.001-1.035) Urine Protein 2+ (Negative) H Urine Ketones Negative (Negative) Urine Blood Negative /uL (Negative) Urine Nitrite Negative (Negative) Urine Bilirubin Negative (Negative) Urine Urobilinogen Normal mg/dL (Negative) Urine Leukocyte Esterase Trace /uL (Negative) Urine RBC 7 /hpf (0 - 4) Urine Microscopic WBC 4 /HPF (0-5) Urine Squamous Epithelial Cells Few /hpf (<5) Urine Bacteria None seen /hpf (None Seen) Urine Yeast (Budding) Moderate /hpf (None Seen) Urine Glucose 1+ mg/dL (Normal) H Blood Gas Results Test 02/14/25 06:14 Arterial Blood pH 7.391 (7.350-7.450) FiO2 % 40.0 Microbiology Microbiology Date/Time Source Procedure Growth Status 02/08/25 13:20 Blood Blood Culture - Final NO GROWTH AFTER 5 DAYS OF INCUBATION. Complete 02/01/25 05:00 Catheter Tip Aerobic Culture - Final Complete 01/24/25 10:06 Bronchial Washings Gram Stain - Final Complete 01/24/25 10:06 Bronchial Washings Respiratory Culture - Final Complete 01/10/25 09:18 Voided Urine Urine Culture - Final Presumptive Sully albicans Yeast, not Sully albicans Complete Labs and/or images reviewed: Labs reviewed by me, Image(s) reviewed by me Assessment/Plan Assessment/Plan Impression: -septic shock -right foot osteomyelitis -peripheral arterial disease -acute hypoxic respiratory failure -acute on chronic systolic and diastolic heart failure -end-stage renal disease with hemodialysis -diabetes mellitus Plan: Events: Tentative plans for right BKA in two days. Patient had been placed back on norepinephrine drip with hemodialysis yesterday. Continue to hold anticoagulation at this time given persistent anemia, thrombocytopenia -continue current ventilator settings. Wean FiO2 to keep saturation greater than 92% -pulmonology consultation: Recommendations reviewed. Assess appropriateness for weaning trial. If patient unsuccessful, we will recommend tracheostomy. -nephrology consultation: Recommendations reviewed. -cardiology consultation: Recommendations reviewed -regular insulin sliding scale -repeat labs, ABG, and chest x-ray in a.m. Critical care time spent with patient discussing and formulating plan of care: 90 minutes. This does not include time spent performing procedures. This medical document was created using an electronic medical record system with [employer] dictation system. Although this document has been carefully reviewed, there may still be some phonetic and typographical errors. These areas are purely typographical due to imperfections of the software programs, and do not reflect any compromise in the patient's medical care. Plan discussed with: Patient, Other (RN) My Orders Orders - TERRY REDD NP Procedure Category Date Status Time * Surgical Consult CONS 02/13/25 Transmitted Abg W/ Co-Ox RT 02/14/25 Logged 05:00 Chest Portable XY 02/14/25 Resulted 04:00 Date of Service: Feb 14, 2025 Billing Provider: TERRY REDD NP Common Visit Codes: [id number] CARE 30-74 MIN TERRY REDD NP Feb 14, 2025 10:17
--- NOTE | 2025-02-14 10:25 | DVHINCON2 ---
Date of service: Feb 14, 2025 Family History: Diabetes mellitus G8 MOTHER G8 FATHER Allergies: Coded Allergies: NO KNOWN ALLERGIES (Unverified , 01/09/25) Home Meds Reported Medications Fluoxetine HCl (Fluoxetine HCl) 20 Mg Cap, 1 CAP PO DAILY for 30 Days, #30 01/15/25 Trazodone Hcl (Trazodone Hcl) 50 Mg Tab, 1 TAB PO DAILY for 30 Days, #30 01/15/25 Atorvastatin Calcium (ATORVASTATIN CALCIUM) 40 Mg Tab, 1 TAB PO DAILY for 30 Days, #30 01/15/25 Furosemide (Furosemide) 40 Mg Tab, 1 TAB PO BID for 30 Days, #60 01/15/25 Carvedilol (Carvedilol) 3.125 Mg Tab, 1 TAB PO BID for 30 Days, #60 01/15/25 Levothyroxine Sodium (Levothyroxine Sodium) 137 Mcg Tab, 1 TAB PO DAILY for 30 Days, #30 01/15/25 Vital Signs Vital Signs Date Time Temp Pulse Resp B/P (MAP) Pulse Ox O2 Delivery O2 Flow Rate FiO2 02/14/25 10:00 24 95 Mechanical Ventilator+ 60 60 02/14/25 09:04 75 114/47 (69) 02/14/25 04:56 98.6 98.6 Labs/Diagnostic Data Labs Test 02/14/25 06:14 02/14/25 06:03 02/14/25 02:55 02/11/25 07:00 Range/Units Blood Gas Specimen Type Arterial Blood Gas Sample Site Arterial line Blood Gas Patient Temperature 37.0 Arterial Blood Date Drawn [id number] Arterial Blood pH 7.391 7.350-7.450 Arterial Blood Partial Pressure CO2 39.3 32.0-45.0 mmHg Arterial Blood Partial Pressure O2 49.4 *L 83.0-108.0 mmHg Arterial Blood HCO3 23.3 21.0-28.0 mmol/L Arterial Blood Oxygen Saturation 83.8 *L 94.0-98.0 % Arterial Blood Base Excess -1.5 -2.0-3.0 mmol/L Arterial Blood Oxyhemoglobin 81.9 L 94.0-98.0 % Arterial Blood Carboxyhemoglobin 1.6 H 0.5-1.5 % Arterial Blood Methemoglobin 0.7 0.0-1.5 % Gene Test N/a Blood Gas Total Hemoglobin 8.10 L 12.0-16.0 g/dL Blood Gas Set Respiration Rate 24.0 Blood Gas Modality Vent - ac FiO2 % 40.0 Blood Gas Tidal Volume 400.0 Blood Gas PEEP or CPAP 8.0 Blood Gas Critical Value Read Back yes Blood Gas Notified Whom program developer lupis Blood Gas Notified Time [id number] Blood Gas Notified By sales support rep abhay POC Glucose 162 H 70-106 mg/dl White Blood Count 10.6 4.4-10.8 10^3/uL Red Blood Count 2.49 L 4.0-5.20 10^6/uL Hemoglobin 7.7 L 12.2-16.2 g/dL Hematocrit 23.6 L 36.0-46.0 % Mean Corpuscular Volume 95.0 80.0-100.0 fL Mean Corpuscular Hemoglobin 31.0 28.0-32.0 pg Mean Corpuscular Hemoglobin Concent 32.6 32.0-36.0 g/dL Red Cell Distribution Width 21.4 H 11.8-14.3 % Platelet Count 56 L 140-450 10^3/uL Mean Platelet Volume 10.3 6.9-10.8 fL Neutrophils (%) (Auto) 95.1 H 37.0-80.0 % Lymphocytes (%) (Auto) 1.5 L 10.0-50.0 % Monocytes (%) (Auto) 2.3 0.0-12.0 % Eosinophils (%) (Auto) 0.3 0.0-7.0 % Basophils (%) (Auto) 0.8 0.0-2.0 % Neutrophils # (Auto) 10.1 H 1.6-8.6 10 ^3/uL Lymphocytes # (Auto) 0.2 L 0.4-5.4 10 ^3/uL Monocytes # (Auto) 0.2 0-1.3 10 ^3/uL Eosinophils # (Auto) 0 0-0.8 10 ^3/uL Basophils # (Auto) 0.1 0-0.2 10 ^3/uL Nucleated Red Blood Cells 0.7 % Sodium Level 144 136-145 mmol/L Potassium Level 3.9 3.5-5.1 mmol/L Chloride Level 104 98-107 mmol/L Carbon Dioxide Level 25 20-31 mmol/L Anion Gap 15 5-15 Blood Urea Nitrogen 80 *H 9-23 mg/dL Creatinine 3.77 H 0.550-1.02 mg/dL Glomerular Filtration Rate Calc 13 >90 mL/min BUN/Creatinine Ratio 21.2 H 10.0-20.0 Serum Glucose 167 H 74-106 mg/dL Calcium Level 8.5 L 8.7-10.4 mg/dL Magnesium Level 2.1 1.6-2.6 mg/dL Total Bilirubin 0.9 0.2-1.0 mg/dL Aspartate Amino Transferase (AST) 59 H 13-40 U/L Alanine Aminotransferase (ALT) 50 H 7-40 U/L Alkaline Phosphatase 196 H 46-116 U/L Total Protein 4.8 L 5.7-8.2 g/dL Albumin 2.8 L 3.2-4.8 g/dL Random Vancomycin Level 26.0 H 5-10 ug/mL Stool for White Cells None seen Test 02/11/25 03:10 02/07/25 12:38 02/05/25 13:26 02/05/25 10:40 Range/Units Platelet Estimate Decreased Anisocytosis (manual) Slight Hepatitis B Surface Antigen Negative Negative Prothrombin Time 16.1 H 9.3-11.8 sec Prothrombin Time INR 1.59 H 0.9-1.15 Activated Partial Thromboplast Time 39.1 H 24.5-34.5 SEC Blood Gas Spontaneous Rate 34 Test 02/04/25 03:10 02/02/25 18:14 02/01/25 09:58 01/30/25 11:40 Range/Units Phosphorus Level 5.2 H 2.4-5.1 mg/dL Lactic Acid Level 1.2 0.4-2.0 mmol/L Differential Total Cells Counted 100.0 100 Neutrophils % (Manual) 89 H 37.0-80.0 Band Neutrophils % (Manual) 6 Lymphocytes % (Manual) 2 L 10.0-50.0 Monocytes % (Manual) 3 0-12 Eosinophils % (Manual) 0 0-7 Basophils % (Manual) 0 0.0-2.0 Metamyelocytes % (manual) 0 Myelocytes % (Manual) 0 Promyelocytes % (Manual) 0 Blast Cells % (Manual) 0 Reactive Lymphocytes 0 Influenza Type A Antigen Negative Negative Influenza Type B Antigen Negative Negative SARS-CoV-2 Antigen (Rapid) Negative NEGATIVE Test 01/28/25 02:48 01/27/25 03:51 01/25/25 02:45 01/23/25 08:30 Range/Units Anti-Nuclear Antibody Screen Negative Negative Large Platelets Few B-Type Natriuretic Peptide 4977.28 0-100 pg/mL Blood Gas Liter Flow 8.00 Test 01/21/25 20:23 01/10/25 11:31 01/10/25 09:18 01/09/25 23:40 Range/Units Stool Occult Blood Positive Negative Stool Occult Blood Sample #3 Negative Hemoglobin A1c 7.3 H <5.7 % A1C Triglycerides Level 79 < 150 mg/dL Cholesterol Level 91 < 200 mg/dL LDL Cholesterol 35 < 100 mg/dL HDL Cholesterol 37 L 40-59 mg/dL Vitamin B12 Level > 4000 H 211-911 pg/mL Vitamin D 25-Hydroxy 63.2 30.0-100 ng/mL Thyroid Stimulating Hormone (TSH) 3.78 0.55-4.78 uIU/mL Urine Color Yellow Yellow Urine Clarity Turbid H Clear Urine pH 6.5 5.0-9.0 Urine Specific [place] 1.019 1.001-1.035 Urine Protein 2+ H Negative Urine Ketones Negative Negative Urine Blood Negative Negative /uL Urine Nitrite Negative Negative Urine Bilirubin Negative Negative Urine Urobilinogen Normal Negative mg/dL Urine Leukocyte Esterase Trace Negative /uL Urine RBC 7 0 - 4 /hpf Urine Microscopic WBC 4 0-5 /HPF Urine Squamous Epithelial Cells Few <5 /hpf Urine Bacteria None seen None Seen /hpf Urine Yeast (Budding) Moderate None Seen /hpf Urine Glucose 1+ H Normal mg/dL Urine Opiates Screen Neg NEGATIVE Urine Fentanyl Screen Neg NEGATIVE Urine Barbiturates Screen Neg NEGATIVE Urine Phencyclidine Screen Neg NEGATIVE Urine Amphetamines Screen Neg NEGATIVE Urine Benzodiazepines Screen Neg NEGATIVE Urine Cocaine Screen Neg NEGATIVE Urine Cannabinoids Screen Neg NEGATIVE Erythrocyte Sedimentation Rate 54 H 0-20 mm/hr C-Reactive Protein High Sensitivity 4.44 H <1.0 mg/dL Hepatitis C Antibody Negative Negative Microbiology Date/Time Source Procedure Growth Status 02/08/25 13:20 Blood Blood Culture - Final NO GROWTH AFTER 5 DAYS OF INCUBATION. Complete 02/01/25 05:00 Catheter Tip Aerobic Culture - Final Complete 01/24/25 10:06 Bronchial Washings Gram Stain - Final Complete 01/24/25 10:06 Bronchial Washings Respiratory Culture - Final Complete 01/10/25 09:18 Voided Urine Urine Culture - Final Presumptive Sully albicans Yeast, not Sully albicans Complete Assessment PATIENT SEPTIC, ON DIALYSIS,INTUBATED,SEDATED, RIGHT FOOT GANGRENOUS TO ANKLE, PLAN RIGHT BKA IF FAMILY CONSENTS Plan discussed with: Other LIO RODRÍGUEZ MD Feb 14, 2025 10:25
--- NOTE | 2025-02-14 11:56 | DVHPN2 ---
Subjective Kaitlin Ojeda is a 64-year-old female patient who presents to ED with chief complaint of nonhealing right foot wound which started three weeks before her admission, progressively got worse presenting purulent discharge with foul smell and not able to bear weight on her foot. Worsening symptoms prompted her visit to the ED. Patient denies any associated symptoms including fever, chills, palpitation, syncope and dysuria. Reviewed: Care Plan, H&P Changes from previous H/P or p: No Changes General: Per HPI Objective Vitals Vital Signs Date Time Temp Pulse Resp B/P (MAP) Pulse Ox O2 Delivery O2 Flow Rate FiO2 02/14/25 11:00 75 25 113/48 (69) 96 60 02/14/25 10:00 Mechanical Ventilator+ 02/14/25 08:00 98.0 98.0 Intake/Output Intake and Output 02/14/25 07:00 Intake Total 427.5 ml Output Total 220 ml Balance 207.5 ml Intake Oral 120 ml IV Total 67.5 ml Tube Feeding 240 ml Stool Total 220 ml Exam Dermatological: Skin is dry with mild erythema and some maceration around the wound site No gross deformities noted Mild non-pitting edema present bilaterally Right foot dorsal and plantar incisions with fibrosis and purulent drainage Vascular: Dorsalis pedis and posterior tibial pulses are 1+ bilaterally Capillary refill is under 2 seconds Skin temperature is warm bilaterally Neurologic: Protective sensation is absent on the plantar forefoot bilaterally Monofilament testing reveals decreased sensation in multiple plantar sites Musculoskeletal: Range of motion at the ankle and MTP joints is within normal limits. Strength is 5/5 in all tested muscle groups. Gait is antalgic due to offloading of the affected limb. General Appearance: mild distress, Other (Intubated and sedated) HEENT: Atraumatic, PERRLA Lungs: Clear to auscultation, Other (Mechanical ventilation.) Cardiovascular: Normal S1, Normal S2, Other (Patient now in sinus rhythm, heart rate 65) Abdomen: Normal bowel sounds, Soft, No tenderness, No hepatospenomegaly Musculoskeletal: Other (Unable to assess) Extremities: No clubbing, No cyanosis, No edema, Normal pulses, No tenderness/swelling Neuro: Other (Unable to assess) Skin: Dry, Intact, Wounds (See nurse notes and pictures), Other (Right foot necrosis) Psych/Mental Status: Other (Unable to assess) Medications Current Medications Medications Dose Ordered Sig/Seth Route Start Time Stop Time Status Last Admin Dose Admin Acetaminophen 325 mg Q4HP PRN PO 01/10/25 00:30 02/08/25 12:57 325 MG Ondansetron HCl 4 mg Q4HP PRN IV 01/10/25 00:30 01/20/25 16:19 4 MG Atorvastatin Calcium 40 mg HS PO 01/10/25 22:00 02/13/25 22:00 40 MG Levothyroxine Sodium 125 mcg QAM@0600 PO 01/11/25 06:00 02/14/25 06:01 125 MCG Dextrose 50 ml UD PRN IV 01/14/25 14:15 02/07/25 21:05 50 ML Fluconazole 100 mg POSTDI PRN PO 01/15/25 12:45 Cancel Albumin Human 100 ml @ 100 mls/hr WD PRN IV 01/18/25 21:00 02/13/25 19:00 100 MLS/HR Albuterol 2.5 mg Q4HPRN PRN NEB 01/20/25 16:00 02/14/25 09:03 2.5 MG Vancomycin HCl 0 ml @ 0 mls/hr PER PHARMACY IV 01/21/25 12:15 Cancel Fentanyl Citrate 250 ml @ 2.5 mls/hr Q24H IV 01/23/25 13:45 02/12/25 23:58 7.5 MLS/HR Enteral Nutritional Formula 1,000 ml 30ML/HR GT 01/23/25 18:00 02/13/25 13:59 1,000 ML Pantoprazole Sodium 40 mg BID IV 01/23/25 22:00 02/14/25 11:43 40 MG Sodium Chloride 1,000 ml @ 200 mls/hr Q5H IV 01/25/25 11:00 Cancel Amiodarone HCl 100 mg Q12HR PO 01/25/25 22:00 02/14/25 11:43 100 MG Levalbuterol HCl 1.25 mg Q4HR NEB 02/02/25 14:30 02/14/25 09:03 1.25 MG Ipratropium [place] 0.5 mg Q4HR NEB 02/02/25 18:00 02/14/25 09:04 0.5 MG Metoclopramide HCl 10 mg Q8HR GT 02/07/25 14:00 02/14/25 06:01 10 MG Ertapenem 0.5 gm/ Sodium Chloride 50 ml @ 100 mls/hr HS IV 02/07/25 22:00 02/13/25 22:03 100 MLS/HR Hydralazine HCl 10 mg Q6HP PRN IV 02/07/25 18:15 02/12/25 17:42 10 MG Norepinephrine Bitartrate 32 mg/ Sodium Chloride 250 ml @ 0.469 mls/ hr Q24H IV 02/10/25 03:30 02/13/25 15:04 0.469 MLS/HR Metoprolol Tartrate 25 mg BID PO 02/11/25 10:00 Hold Vancomycin HCl 0 ml @ 0 mls/hr PER PHARMACY IV 02/11/25 21:30 Diagnostic Test (Pha) 1 strip Q6HR 02/12/25 12:00 02/14/25 06:02 1 STRIP Insulin Human Regular Q6HR SC 02/12/25 12:00 02/14/25 06:07 3 UNITS Dextrose 50 ml UD PRN IV 02/12/25 10:30 Laboratory Results Laboratory Tests 02/14/25 02:55 Chemistry Test 02/14/25 02:55 Albumin 2.8 g/dL (3.2-4.8) L Calcium Level 8.5 mg/dL (8.7-10.4) L Magnesium Level 2.1 mg/dL (1.6-2.6) Total Protein 4.8 g/dL (5.7-8.2) L LFT Test 02/14/25 02:55 Alanine Aminotransferase (ALT) 50 U/L (7-40) H Alkaline Phosphatase 196 U/L (46-116) H Aspartate Amino Transferase (AST) 59 U/L (13-40) H Total Bilirubin 0.9 mg/dL (0.2-1.0) Urinalysis Test 01/10/25 09:18 Urine Color Yellow (Yellow) Urine Clarity Turbid (Clear) H Urine pH 6.5 (5.0-9.0) Urine Specific [place] 1.019 (1.001-1.035) Urine Protein 2+ (Negative) H Urine Ketones Negative (Negative) Urine Blood Negative /uL (Negative) Urine Nitrite Negative (Negative) Urine Bilirubin Negative (Negative) Urine Urobilinogen Normal mg/dL (Negative) Urine Leukocyte Esterase Trace /uL (Negative) Urine RBC 7 /hpf (0 - 4) Urine Microscopic WBC 4 /HPF (0-5) Urine Squamous Epithelial Cells Few /hpf (<5) Urine Bacteria None seen /hpf (None Seen) Urine Yeast (Budding) Moderate /hpf (None Seen) Urine Glucose 1+ mg/dL (Normal) H Blood Gas Results Test 02/14/25 06:14 Arterial Blood pH 7.391 (7.350-7.450) FiO2 % 40.0 Microbiology Microbiology Date/Time Source Procedure Growth Status 02/08/25 13:20 Blood Blood Culture - Final NO GROWTH AFTER 5 DAYS OF INCUBATION. Complete 02/01/25 05:00 Catheter Tip Aerobic Culture - Final Complete 01/24/25 10:06 Bronchial Washings Gram Stain - Final Complete 01/24/25 10:06 Bronchial Washings Respiratory Culture - Final Complete 01/10/25 09:18 Voided Urine Urine Culture - Final Presumptive Sully albicans Yeast, not Sully albicans Complete Assessment/Plan Assessment/Plan ASSESSMENT: Patient is a 64 year old seen on the floor follow up s/p foot I&D PLAN: - The patients chart was reviewed, clinical findings were discussed with the patient, the etiologies of the conditions were discussed in detail, and a treatment plan was agreed to at this time, with both oral and written instructions provided. - reviewed repeat CT - due to the amount of tissue loss recommend evaluation for right foot BKA - patient would likely due better with a BKA vs trying to heal the foot wound - follow up with vascular/general surgery All questions were answered and concerns addressed to the patient's satisfaction. The patient was given the phone number to the clinic and was told how to make contact with the clinic should any concerns or questions arise. Patient understands that if any questions or concerns arise prior to the next appointment, we should be contacted immediately. FOLLOW-UP: Continue to follow while inpatient Plan discussed with: Patient Problem List: (1) Toe fracture, right (2) Toe osteomyelitis, right (3) Elevated liver enzymes (4) N&V (nausea and vomiting) (5) Septic shock (6) Blood loss anemia (7) Blood loss, postoperative (8) Hospital-acquired pneumonia Visit Coding Podiatry Date of Service if different f: Feb 14, 2025 Billing Provider: MARYCRUZ EASTMAN DPM Podiatry Common Visit Codes: [id number] INP/OBS CARE(HIGH) MARYCRUZ EASTMAN DPM Feb 14, 2025 11:56
[2025-02-14 12:20] LABS: INR 1.29 (0.9-1.15); Partial Thromboplastin Time 32.9 SEC (24.5-34.5); Prothrombin Time 13.3 sec (9.3-11.8)
[2025-02-14] MEDS ORDERED: ALBUMIN 25% 100 ML IV PRN (14:15)
[2025-02-14] MEDS: SODIUM CHL 0.9% 1000 ML BAG XX ONE (15:00)
--- NOTE | 2025-02-14 15:39 | DVHPN2 ---
Progress Note - Dictate Date Seen: Feb 14, 2025 Medical Necessity Reason Pt with a Central, PICC or Fol: Yes The following are medically ne: Central Line, [place] Catheter Subjective Patient is intubated. vital signs Vital Sign Date Time Temp Pulse Resp B/P (MAP) Pulse Ox O2 Delivery O2 Flow Rate FiO2 02/14/25 14:00 60 02/14/25 14:00 84 02/14/25 14:00 24 98 Mechanical Ventilator+ 02/14/25 13:06 103/45 (64) 02/14/25 08:00 98.0 98.0 Total Intake and Output 02/13/25 02/13/25 02/14/25 15:00 23:00 07:00 Intake Total 215.0 ml 212.5 ml Output Total 20 ml 200 ml Balance 195.0 ml 12.5 ml medications Current Medications Medications Dose Ordered Sig/Seth Route Start Time Stop Time Status Last Admin Dose Admin Acetaminophen 325 mg Q4HP PRN PO 01/10/25 00:30 02/08/25 12:57 325 MG Ondansetron HCl 4 mg Q4HP PRN IV 01/10/25 00:30 01/20/25 16:19 4 MG Atorvastatin Calcium 40 mg HS PO 01/10/25 22:00 02/13/25 22:00 40 MG Levothyroxine Sodium 125 mcg QAM@0600 PO 01/11/25 06:00 02/14/25 06:01 125 MCG Dextrose 50 ml UD PRN IV 01/14/25 14:15 02/07/25 21:05 50 ML Fluconazole 100 mg POSTDI PRN PO 01/15/25 12:45 Cancel Albumin Human 100 ml @ 100 mls/hr WD PRN IV 01/18/25 21:00 02/13/25 19:00 100 MLS/HR Albuterol 2.5 mg Q4HPRN PRN NEB 01/20/25 16:00 02/14/25 09:03 2.5 MG Vancomycin HCl 0 ml @ 0 mls/hr PER PHARMACY IV 01/21/25 12:15 Cancel Fentanyl Citrate 250 ml @ 2.5 mls/hr Q24H IV 01/23/25 13:45 02/12/25 23:58 7.5 MLS/HR Enteral Nutritional Formula 1,000 ml 30ML/HR GT 01/23/25 18:00 02/13/25 13:59 1,000 ML Pantoprazole Sodium 40 mg BID IV 01/23/25 22:00 02/14/25 11:43 40 MG Sodium Chloride 1,000 ml @ 200 mls/hr Q5H IV 01/25/25 11:00 Cancel Amiodarone HCl 100 mg Q12HR PO 01/25/25 22:00 02/14/25 11:43 100 MG Levalbuterol HCl 1.25 mg Q4HR NEB 02/02/25 14:30 02/14/25 13:06 1.25 MG Ipratropium [place] 0.5 mg Q4HR NEB 02/02/25 18:00 02/14/25 13:06 0.5 MG Metoclopramide HCl 10 mg Q8HR GT 02/07/25 14:00 02/14/25 14:01 10 MG Ertapenem 0.5 gm/ Sodium Chloride 50 ml @ 100 mls/hr HS IV 02/07/25 22:00 02/13/25 22:03 100 MLS/HR Hydralazine HCl 10 mg Q6HP PRN IV 02/07/25 18:15 02/12/25 17:42 10 MG Norepinephrine Bitartrate 32 mg/ Sodium Chloride 250 ml @ 0.469 mls/ hr Q24H IV 02/10/25 03:30 02/13/25 15:04 0.469 MLS/HR Metoprolol Tartrate 25 mg BID PO 02/11/25 10:00 Hold Vancomycin HCl 0 ml @ 0 mls/hr PER PHARMACY IV 02/11/25 21:30 Diagnostic Test (Pha) 1 strip Q6HR 02/12/25 12:00 02/14/25 13:59 1 STRIP Insulin Human Regular Q6HR SC 02/12/25 12:00 02/14/25 13:59 2 UNITS Dextrose 50 ml UD PRN IV 02/12/25 10:30 Albumin Human 100 ml @ 100 mls/hr Q1HR PRN IV 02/14/25 14:15 03/03/25 06:00 objective HEENT: ET tube in place Pulmonary: Diminished on auscultation bilaterally Cardiovascular S1-S2, no S3 or S4 Abdomen: Bowel sounds positive, soft no rebound tenderness Skin: No rash Neurological: Sedated Right foot dressed Hemodialysis access right upper arm AV fistula positive bruit and thrill but faint [place] catheter right groin laboratory and microbiology Laboratory Tests 02/14/25 14:54 02/14/25 02:55 Test 02/14/25 02:55 Range/Units Serum Glucose 167 H 74-106 mg/dL Assessment/Plan Assessment: ESRD on HD Acute hypoxic respiratory failure requiring intubation Shock secondary to sepsis Right lower extremity cellulitis Severe systolic heart failure Peripheral vascular disease Pneumonia DM hypothyroidism Anemia Hyperphosphatemia Secondary hyperparathyroidism Thrombocytopenia Plan and recommendations Continue dialysis TTS via right femoral [place] catheter since last week placed secondary to profuse bleeding from right upper arm AV fistula. Chest x-ray shows worsening pulmonary infiltrates now requiring 60% FiO2 Dialysis requiring increasing pressor support and patient exhibiting agitation yesterday Currently of the pressors, use pressors p.r.n. On amiodarone for AFib. Pulmonary consult following Renally dose antibiotics for GFR less than 10 mL/minute CT of lower extremity noted. As of now plan amputation and Wednesday Guarded prognosis, recommend continued goals of care discussion with family patient has multiple comorbidities to consider for DNR status. Thank you very much for allowing us to participate in the care of this patient Dietary Evaluation Review Comments: Nutrition Recommendation 1) CCHO 60gm + renal standard diet 2) Nephro-santosh 1 tab daily 3) Lexx 1 pk daily 4) Monitor PO intake, lab values, weight trend, and I/O Expected Outcomes/Goals: To meet >75% estimated needs Wound to improve Fu 3-5 days Plan discussed with: Patient CC Plasma Assessment Blood Product Administration S: [id number] JOSÉ LUIS TAM MD Feb 14, 2025 15:38
--- NOTE | 2025-02-14 17:45 | DVH ---
RIGHT UPPER EXTREMITY ARTERIAL DUPLEX ULTRASOUND STUDY: REASON FOR EXAM: Right upper extremity swelling. Thrombosed cephalic vein. Arteriovenous dialysis fistula. TECHNIQUE: The full lengths of the arterial segments were evaluated with color- flow Doppler ultrasound. Suspected abnormalities were evaluated with parikh scale ultrasound. Outreach Analyst spectral Doppler waveforms, with velocity measurements were obtained. Spectral waveforms with velocity measurements were obtained 2 to 4 cm central to any areas of significant stenosis. Subclavian, axillary, brachial, radial, and ulnar arteries were evaluated. FINDINGS: The heart rhythm is irregular which may skew velocity measurements. There is mild atherosclerotic plaque throughout the right upper extremity. The subclavian artery waveform is multiphasic. The axillary and brachial arteries are patent with multiphasic waveforms. The radial and ulnar arteries are patent with multiphasic waveforms. There is subcutaneous edema in the forearm. There is a radial artery to cephalic vein dialysis fistula. There is Occlusive thrombus in the middle and upper portions of the fistula. The portion of the cephalic vein fistula near the anastomosis appears patent. IMPRESSION: No significant stenosis in the [place] arteries of the right upper extremity. Brachial artery to cephalic vein arteriovenous dialysis fistula, occluded in the middle and upper portions. The lower portion, closer to the anastomosis, is patent.
[2025-02-14 20:22] LABS: Potassium 3.9 mmol/L (3.5-5.1); Sodium 141 mmol/L (136-145)
[2025-02-14 20:23] LABS: Anion Gap 11 (5-15); Carbon Dioxide 23 mmol/L (20-31)
[2025-02-14 20:24] LABS: Nucleated Red Blood Cells % 0.3 %
[2025-02-14 20:26] LABS: Hematocrit 25.2 % (36.0-46.0); Hemoglobin 7.8 g/dL (12.2-16.2); Mean Corpuscular Hemoglobin 31.8 pg (28.0-32.0); Mean Corpuscular Volume 102.8 fL (80.0-100.0)
[2025-02-14 20:28] LABS: BUN/Creatinine Ratio 13.6 (10.0-20.0)
[2025-02-14 20:29] LABS: Magnesium 2.2 mg/dL (1.6-2.6)
[2025-02-14 20:49] LABS: Blood Urea Nitrogen 56 mg/dL (9-23); Chloride 107 mmol/L (98-107); Glucose 136 mg/dL (74-106)
[2025-02-14 20:50] LABS: Calcium 8.6 mg/dL (8.7-10.4)
[2025-02-14] MEDS ORDERED: PHENYLEPHRINE IV 250 ML IV SCH (21:30)
[2025-02-14] MEDS: PHENYLEPHRINE HCL 10 MG/ML VL ONE (22:55)
--- NOTE | 2025-02-14 23:05 | DVHPN2 ---
[facility] DOS: 02/14/2025 Patient seen and examined at bedside. Sedated, intubated on mechanical ventilator. Overnight events reviewed. Reviewed: Care Plan, H&P Changes from previous H/P or p: No Changes General: Per HPI Objective Vitals Vital Signs Date Time Temp Pulse Resp B/P (MAP) Pulse Ox O2 Delivery O2 Flow Rate FiO2 02/14/25 22:23 117 25 143/20 (61) 95 60 02/14/25 20:00 Mechanical Ventilator+ 02/14/25 16:01 98.1 98.1 Intake/Output Intake and Output 02/14/25 07:00 Intake Total 427.5 ml Output Total 220 ml Balance 207.5 ml Intake Oral 120 ml IV Total 67.5 ml Tube Feeding 240 ml Stool Total 220 ml Exam Gen.: Patient lying in bed in medical ICU. Sedated, intubated on mechanical ventilator. Head: Normocephalic, atraumatic. Eyes: PERRLA. Ears: Normal external anatomy. Throat: Endotracheal tube and orogastric tube in place. Neck: Supple, trachea midline. Chest: Transmitted breath sounds bilaterally. Decreased air entry bilaterally. No wheezing. Bibasilar crackles. Cardiovascular: Positive S1, positive S2. Regular rate and rhythm. Abdomen: Positive bowel sounds in all 4 quadrants. Soft, nontender, nondistended. : [place] in place. Normal external genitalia. Rectal: Deferred. Skin: Warm, dry. Right foot osteomyelitis. Extremities: 2+ radial pulses bilaterally. No lower extremity edema. Neuro: Sedated General Appearance: mild distress, Other (Intubated and sedated) HEENT: Atraumatic, PERRLA Lungs: Clear to auscultation, Other (Mechanical ventilation.) Cardiovascular: Normal S1, Normal S2, Other (Patient now in sinus rhythm, heart rate 65) Abdomen: Normal bowel sounds, Soft, No tenderness, No hepatospenomegaly Musculoskeletal: Other (Unable to assess) Extremities: No clubbing, No cyanosis, No edema, Normal pulses, No tenderness/swelling Neuro: Other (Unable to assess) Skin: Dry, Intact, Wounds (See nurse notes and pictures), Other (Right foot necrosis) Psych/Mental Status: Other (Unable to assess) Medications Current Medications Medications Dose Ordered Sig/Seth Route Start Time Stop Time Status Last Admin Dose Admin Acetaminophen 325 mg Q4HP PRN PO 01/10/25 00:30 02/08/25 12:57 325 MG Ondansetron HCl 4 mg Q4HP PRN IV 01/10/25 00:30 01/20/25 16:19 4 MG Atorvastatin Calcium 40 mg HS PO 01/10/25 22:00 02/14/25 21:57 40 MG Levothyroxine Sodium 125 mcg QAM@0600 PO 01/11/25 06:00 02/14/25 06:01 125 MCG Dextrose 50 ml UD PRN IV 01/14/25 14:15 02/07/25 21:05 50 ML Fluconazole 100 mg POSTDI PRN PO 01/15/25 12:45 Cancel Albumin Human 100 ml @ 100 mls/hr WD PRN IV 01/18/25 21:00 02/13/25 19:00 100 MLS/HR Albuterol 2.5 mg Q4HPRN PRN NEB 01/20/25 16:00 02/14/25 09:03 2.5 MG Vancomycin HCl 0 ml @ 0 mls/hr PER PHARMACY IV 01/21/25 12:15 Cancel Fentanyl Citrate 250 ml @ 2.5 mls/hr Q24H IV 01/23/25 13:45 02/14/25 16:33 10 MLS/HR Enteral Nutritional Formula 1,000 ml 30ML/HR GT 01/23/25 18:00 02/13/25 13:59 1,000 ML Pantoprazole Sodium 40 mg BID IV 01/23/25 22:00 02/14/25 21:59 40 MG Sodium Chloride 1,000 ml @ 200 mls/hr Q5H IV 01/25/25 11:00 Cancel Amiodarone HCl 100 mg Q12HR PO 01/25/25 22:00 02/14/25 21:59 100 MG Levalbuterol HCl 1.25 mg Q4HR NEB 02/02/25 14:30 02/14/25 22:23 1.25 MG Ipratropium [place] 0.5 mg Q4HR NEB 02/02/25 18:00 02/14/25 22:23 0.5 MG Metoclopramide HCl 10 mg Q8HR GT 02/07/25 14:00 02/14/25 21:59 10 MG Ertapenem 0.5 gm/ Sodium Chloride 50 ml @ 100 mls/hr HS IV 02/07/25 22:00 02/13/25 22:03 100 MLS/HR Hydralazine HCl 10 mg Q6HP PRN IV 02/07/25 18:15 02/12/25 17:42 10 MG Norepinephrine Bitartrate 32 mg/ Sodium Chloride 250 ml @ 0.469 mls/ hr Q24H IV 02/10/25 03:30 02/13/25 15:04 0.469 MLS/HR Metoprolol Tartrate 25 mg BID PO 02/11/25 10:00 Hold Vancomycin HCl 0 ml @ 0 mls/hr PER PHARMACY IV 02/11/25 21:30 Diagnostic Test (Pha) 1 strip Q6HR 02/12/25 12:00 02/14/25 18:00 1 STRIP Insulin Human Regular Q6HR SC 02/12/25 12:00 02/14/25 18:00 2 UNITS Dextrose 50 ml UD PRN IV 02/12/25 10:30 Albumin Human 100 ml @ 100 mls/hr Q1HR PRN IV 02/14/25 14:15 03/03/25 06:00 Midazolam HCl 100 ml @ 1 mls/hr Q24H IV 02/14/25 08:00 02/14/25 08:00 1 MLS/HR Phenylephrine HCl 250 ml @ 30 mls/hr Q8H20M IV 02/14/25 21:30 Cancel Phenylephrine HCl 80 mg/Sodium Chloride 250 ml @ 7.5 mls/hr Q24H IV 02/14/25 22:45 UNV Laboratory Results Laboratory Tests 02/14/25 19:56 Chemistry Test 02/14/25 02:55 02/14/25 19:56 Albumin 2.8 g/dL (3.2-4.8) L Calcium Level 8.5 mg/dL (8.7-10.4) L 8.6 mg/dL (8.7-10.4) L Magnesium Level 2.1 mg/dL (1.6-2.6) 2.2 mg/dL (1.6-2.6) Total Protein 4.8 g/dL (5.7-8.2) L Coagulation Test 02/14/25 11:32 Prothrombin Time 13.3 sec (9.3-11.8) H Prothrombin Time INR 1.29 (0.9-1.15) H Activated Partial Thromboplast Time 32.9 SEC (24.5-34.5) LFT Test 02/14/25 02:55 Alanine Aminotransferase (ALT) 50 U/L (7-40) H Alkaline Phosphatase 196 U/L (46-116) H Aspartate Amino Transferase (AST) 59 U/L (13-40) H Total Bilirubin 0.9 mg/dL (0.2-1.0) Urinalysis Test 01/10/25 09:18 Urine Color Yellow (Yellow) Urine Clarity Turbid (Clear) H Urine pH 6.5 (5.0-9.0) Urine Specific [place] 1.019 (1.001-1.035) Urine Protein 2+ (Negative) H Urine Ketones Negative (Negative) Urine Blood Negative /uL (Negative) Urine Nitrite Negative (Negative) Urine Bilirubin Negative (Negative) Urine Urobilinogen Normal mg/dL (Negative) Urine Leukocyte Esterase Trace /uL (Negative) Urine RBC 7 /hpf (0 - 4) Urine Microscopic WBC 4 /HPF (0-5) Urine Squamous Epithelial Cells Few /hpf (<5) Urine Bacteria None seen /hpf (None Seen) Urine Yeast (Budding) Moderate /hpf (None Seen) Urine Glucose 1+ mg/dL (Normal) H Blood Gas Results Test 02/14/25 06:14 Arterial Blood pH 7.391 (7.350-7.450) FiO2 % 40.0 Microbiology Microbiology Date/Time Source Procedure Growth Status 02/08/25 13:20 Blood Blood Culture - Final NO GROWTH AFTER 5 DAYS OF INCUBATION. Complete 02/01/25 05:00 Catheter Tip Aerobic Culture - Final Complete 01/24/25 10:06 Bronchial Washings Gram Stain - Final Complete 01/24/25 10:06 Bronchial Washings Respiratory Culture - Final Complete 01/10/25 09:18 Voided Urine Urine Culture - Final Presumptive Sully albicans Yeast, not Sully albicans Complete Assessment/Plan Assessment/Plan Impression: Acute hypoxic respiratory failure On mechanical ventilator Acute CHF exacerbation End-stage renal disease, on hemodialysis Osteomyelitis DVT, left upper extremity Overweight Events: Remains on vent support On AC mode; RR 24, VT 400, PEEP 8, FiO2 60% Increased FIO2 requirements Patient noted to desaturate with turns. Sedated on Versed, Fentanyl Note, patient had HD yesterday - had drop in blood pressure and required pressors. Currently on pressors for hemodynamic support Levophed 8 mcg/min Titrate to keep MAP above 65 mmHg/SBP above 90 mmHg. Monitor blood pressure and hemodynamics Below-knee amputation planned on Wednesday. Amiodarone PO for atrial fibrillation with rapid ventricular response Cardiology recs appreciated. Of note, patient had a cardiopulmonary arrest on 02/02/25 for 1 minute, ROSC achieved. Heparin drip due to left upper extremity DVT - currently on hold. Monitor hemoglobin - stable Transfuse if less than 7.0 g/dL. On Lovenox SC. GI plans for EGD. Follow up GI recs Continue bronchodilators. Continue antibiotics Follow up repeat blood cultures On hydrocortisone Nephrology recommendations appreciated Hemodialysis per Nephrology Monitor renal function Monitor electrolytes. Supplement as necessary. Monitor for blood pressure drops during hemodialysis. Monitor platelets Accu-Cheks, ISS. Tube feeds for nutritional support DTI sacrum - wound care. Podiatry recommendations appreciated - plan for BKA. CPAP daily if appropriate, as tolerated. Recommend trach/PEG vs. LTAC. Note, patient with overall poor prognosis. High likelihood of demise. Awaiting family decision on goals of care. CXR on 02/[address]; Stable multifocal patchy bilateral pulmonary airspace disease with mild consolidative features. Small left pleural effusion. Cardiomegaly. CT of RLE demonstrates mild myositis. No CT evidence at this time of osteomyelitis of the right femur. Left upper extremity venous duplex revealed DVT in left axillary and brachial veins. Labs and imaging reviewed. Rest of plan as noted below. Plan: s/p intubation on mechanical ventilator. On AC mode; RR 24, VT 400, PEEP 8, FiO2 60% S/p bronchoscopy on 11/24/24 - Results from bronchial washings show no growth. Titrate FIO2 to keep O2 saturation above 90%. VAP bundle. Daily ABG and CXR while intubated Continue bronchodilators. Continue antibiotics. Follow up cultures. IV steroids Pressors for hemodynamic support Titrate to keep MAP above 65 mmHg/SBP above 90 mmHg. Accu-Cheks, ISS Wound care. Monitor H&H. Hemodialysis per Nephrology Monitor renal function Monitor electrolytes. Supplement as necessary. Monitor ins and outs. Maintain euvolemia. GI prophylaxis. DVT prophylaxis. Prognosis: Poor given patient's multiple co-morbidities. Condition: Critical Rest of plan per hospitalist and other consultants. A total of 35 minutes of critical care time was spent reviewing the patient record, examining the patient, making a diagnostic and therapeutic plan, discussing this plan with the medical personnel, following up on diagnostic studies and following the patient for clinical stability excluding any and all procedures. At least 50% of this time was spent in direct, [id number] contact. Thank you, Dr. Bowie, for allowing me to participate in this patient's care. Further recommendations will depend on the patient's clinical course. Please do not hesitate to contact me if you have any questions or concerns. This medical document was created using an electronic medical record system with [employer] dictation system. Although these documentations are being carefully reviewed, there may still be some phonetic and typographical changes. The errors are purely typographical, due to imperfection on the software program, and do not reflect any compromise in the patient's medical care. Plan discussed with: Other (ALBERTINA Malik) Visit Coding Pulmonary Billing Provider: ALCON GUTHRIE MD Date of Service if different f: Feb 14, 2025 Common Visit Codes: [id number] INP/OBS CARE(HIGH), [id number] CARE 30-74 MIN ALCON GUTHRIE MD Feb 14, 2025 23:05
[2025-02-14] MEDS: PHENYLEPHRINE INJ 80 MG in SODIUM CHL 0.9% 242 ML IV SCH (23:12)
[2025-02-14] MEDS: VASOPRESSIN 20 UNIT/ML ONE (23:18)
[2025-02-14] MEDS: HEPARIN SODIUM (PORCINE) 5000 UNITS/ML 1ML VIAL ONE (23:21)
[2025-02-14] MEDS: VASOPRESSIN 20 UNITS in SODIUM CHL 0.9% 99 ML IV SCH (23:30)
[2025-02-14 23:44] LABS: Base Excess -5.6 mmol/L (-2.0-3.0)
[2025-02-14] MEDS: AMIODARONE BOLUS KIT 100 ML IV ONE (23:54)
[2025-02-15] VITALS (55 sets, daily range): BP systolic 51–158; BP diastolic 12–61; PULSE 88–139; RESP 14–33; TEMP 98–99.9; O2SAT 62–100
[2025-02-15] MEDS: HEPARIN 1,000 UNITS/ml 1ML VIAL ONE (00:10)
[2025-02-15 00:25] LABS: Albumin 3.8 g/dL (3.2-4.8); Anion Gap 14 (5-15); BUN/Creatinine Ratio 18.8 (10.0-20.0); Calcium 9.3 mg/dL (8.7-10.4); Carbon Dioxide 25 mmol/L (20-31); Chloride 105 mmol/L (98-107); Magnesium 2.1 mg/dL (1.6-2.6); Potassium 3.8 mmol/L (3.5-5.1); Sodium 144 mmol/L (136-145); Total Protein 6.1 g/dL (5.7-8.2)
[2025-02-15 00:27] LABS: INR 1.42 (0.9-1.15); Prothrombin Time 14.5 sec (9.3-11.8)
[2025-02-15 00:30] LABS: Hematocrit 24.4 % (36.0-46.0); Nucleated Red Blood Cells % 0.2 %
[2025-02-15 00:31] LABS: Alanine Aminotransferase 43 U/L (7-40); Alkaline Phosphatase 214 U/L (46-116); Bilirubin, Total 1.2 mg/dL (0.2-1.0); Blood Urea Nitrogen 63 mg/dL (9-23); Glucose 124 mg/dL (74-106)
[2025-02-15 00:33] LABS: Hemoglobin 7.9 g/dL (12.2-16.2); Mean Corpuscular Hemoglobin 31.9 pg (28.0-32.0); Mean Corpuscular Volume 98.2 fL (80.0-100.0)
[2025-02-15] MEDS: SODIUM CHL 0.9% 1000 ML BAG XX ONE ×2 (00:45→07:04)
[2025-02-15 01:10] LABS: Base Excess -4.6 mmol/L (-2.0-3.0)
[2025-02-15] MEDS: SODIUM BICARB 8.4% 50Meq/50ml SYR Vial IV ONE ×2 (01:51→09:15)
[2025-02-15 02:17] LABS: Lactic Acid w/Reflex 2.1 mmol/L (0.4-2.0)
[2025-02-15] MEDS: AMIODARONE BOLUS KIT 100 ML IV ONE (02:48)
[2025-02-15] MEDS: EPOETIN ALFA-EPBX 10,000 UNIT/1ML VIAL SC ONE (03:01)
--- NOTE | 2025-02-15 05:57 | DVH ---
CHEST RADIOGRAPH Indication: MECHANICAL VENTILATION Technique: Single frontal view of the chest was obtained COMPARISON: XY CHEST PORTABLE on DOS: 02/14/25, XY CHEST PORTABLE on DOS: 02/13/25, XY CHEST XRAY 1 VIEW on DOS: 02/12/25, XY CHEST PORTABLE on DOS: 02/10/25, XY CHEST PORTABLE on DOS: 02/09/25 FINDINGS: Lines and Tubes: Endotracheal tube, enteric catheter and left chest AICD in satisfactory position. Lungs: Unchanged multifocal airspace disease, severe. Pleura: No effusion.No pneumothorax. Cardiomediastinal contours: Unchanged cardiomegaly. Bones: Unremarkable IMPRESSION: Lines and tubes in satisfactory position. No significant interval change.
[2025-02-15] MEDS: PHENYLEPHRINE HCL 10 MG/ML VL ONE (06:11)
[2025-02-15] MEDS: PHENYLEPHRINE IV 250 ML IV ONE (06:12)
[2025-02-15 06:39] LABS: Base Excess -3.2 mmol/L (-2.0-3.0)
[2025-02-15 07:49] LABS: Chloride 104 mmol/L (98-107); Potassium 3.8 mmol/L (3.5-5.1); Sodium 142 mmol/L (136-145)
[2025-02-15 07:50] LABS: Anion Gap 15 (5-15); Calcium 8.7 mg/dL (8.7-10.4); Carbon Dioxide 23 mmol/L (20-31)
[2025-02-15 07:56] LABS: BUN/Creatinine Ratio 20.8 (10.0-20.0); Blood Urea Nitrogen 76 mg/dL (9-23); Glucose 136 mg/dL (74-106); Magnesium 2.1 mg/dL (1.6-2.6)
[2025-02-15] MEDS: VASOPRESSIN 20 UNIT/ML ONE (08:49)
[2025-02-15] MEDS: EPINEPHrine HCL 250 ML IV ONE (08:58)
[2025-02-15] MEDS: SODIUM BICARB 8.4% 50Meq/50ml SYR INJ ONE (09:08)
[2025-02-15] MEDS ORDERED: EPINEPHrine HCL 250 ML IV SCH ×2 (09:15)
--- NOTE | 2025-02-15 09:20 | DVHPN2 ---
Subjective Patient chemically sedated Reviewed: Care Plan, H&P Changes from previous H/P or p: No Changes General: Per HPI Objective Vitals Vital Signs Date Time Temp Pulse Resp B/P (MAP) Pulse Ox O2 Delivery O2 Flow Rate FiO2 02/15/25 08:45 94 26 157/16 (63) 89 98/34 (55) 02/15/25 07:35 100 02/15/25 06:00 Mechanical Ventilator+ 02/15/25 06:00 98.0 98.0 Intake/Output Intake and Output 02/15/25 07:00 Intake Total 542.5 ml Output Total 200 ml Balance 342.5 ml Intake Oral 120 ml IV Total 112.5 ml Tube Feeding 310 ml Stool Total 200 ml General Appearance: severe distress, Other (Encephalopathic. General ill presentation) HEENT: Atraumatic, PERRLA, Other (Bleeding in oral mucosa) Lungs: Clear to auscultation, Other (Ablation) Cardiovascular: Normal S1, Normal S2, Other (Patient went into atrial fibrillation with rapid ventricular rate yesterday evening) Abdomen: Normal bowel sounds, Soft, No tenderness, No hepatospenomegaly Musculoskeletal: Other Extremities: No clubbing, No cyanosis, No edema, Normal pulses, No tenderness/swelling Neuro: Other Skin: Dry, Intact, Wounds, Other Psych/Mental Status: Other Medications Current Medications Medications Dose Ordered Sig/Seth Route Start Time Stop Time Status Last Admin Dose Admin Acetaminophen 325 mg Q4HP PRN PO 01/10/25 00:30 02/08/25 12:57 325 MG Ondansetron HCl 4 mg Q4HP PRN IV 01/10/25 00:30 01/20/25 16:19 4 MG Atorvastatin Calcium 40 mg HS PO 01/10/25 22:00 02/14/25 21:57 40 MG Levothyroxine Sodium 125 mcg QAM@0600 PO 01/11/25 06:00 02/15/25 06:12 125 MCG Dextrose 50 ml UD PRN IV 01/14/25 14:15 02/07/25 21:05 50 ML Fluconazole 100 mg POSTDI PRN PO 01/15/25 12:45 Cancel Albumin Human 100 ml @ 100 mls/hr WD PRN IV 01/18/25 21:00 02/14/25 23:08 100 MLS/HR Albuterol 2.5 mg Q4HPRN PRN NEB 01/20/25 16:00 02/14/25 09:03 2.5 MG Vancomycin HCl 0 ml @ 0 mls/hr PER PHARMACY IV 01/21/25 12:15 Cancel Fentanyl Citrate 250 ml @ 2.5 mls/hr Q24H IV 01/23/25 13:45 02/14/25 16:33 10 MLS/HR Enteral Nutritional Formula 1,000 ml 30ML/HR GT 01/23/25 18:00 02/13/25 13:59 1,000 ML Pantoprazole Sodium 40 mg BID IV 01/23/25 22:00 02/14/25 21:59 40 MG Sodium Chloride 1,000 ml @ 200 mls/hr Q5H IV 01/25/25 11:00 Cancel Amiodarone HCl 100 mg Q12HR PO 01/25/25 22:00 02/14/25 21:59 100 MG Levalbuterol HCl 1.25 mg Q4HR NEB 02/02/25 14:30 02/15/25 06:02 1.25 MG Ipratropium [place] 0.5 mg Q4HR NEB 02/02/25 18:00 02/15/25 06:02 0.5 MG Metoclopramide HCl 10 mg Q8HR GT 02/07/25 14:00 02/15/25 06:12 10 MG Ertapenem 0.5 gm/ Sodium Chloride 50 ml @ 100 mls/hr HS IV 02/07/25 22:00 02/15/25 03:10 100 MLS/HR Hydralazine HCl 10 mg Q6HP PRN IV 02/07/25 18:15 02/12/25 17:42 10 MG Norepinephrine Bitartrate 32 mg/ Sodium Chloride 250 ml @ 0.469 mls/ hr Q24H IV 02/10/25 03:30 02/15/25 06:00 6.563 MLS/HR Vancomycin HCl 0 ml @ 0 mls/hr PER PHARMACY IV 02/11/25 21:30 Diagnostic Test (Pha) 1 strip Q6HR 02/12/25 12:00 02/15/25 06:29 1 STRIP Insulin Human Regular Q6HR SC 02/12/25 12:00 02/15/25 06:34 2 UNITS Dextrose 50 ml UD PRN IV 02/12/25 10:30 Albumin Human 100 ml @ 100 mls/hr Q1HR PRN IV 02/14/25 14:15 03/03/25 06:00 Midazolam HCl 100 ml @ 1 mls/hr Q24H IV 02/14/25 08:00 02/14/25 08:00 1 MLS/HR Phenylephrine HCl 250 ml @ 30 mls/hr Q8H20M IV 02/14/25 21:30 Cancel Phenylephrine HCl 80 mg/Sodium Chloride 250 ml @ 7.5 mls/hr Q24H IV 02/14/25 22:45 02/15/25 06:00 33.75 MLS/HR Vasopressin 20 units/Sodium Chloride 100 ml @ 9 mls/hr Q11H7M IV 02/14/25 23:30 02/14/25 23:30 9 MLS/HR Amiodarone HCl 250 ml @ 16.66 mls/ hr Q15H1M IV 02/15/25 06:15 02/15/25 06:28 16.66 MLS/HR Heparin Sodium (Porcine) 2,800 units SHAY PRN XX 02/15/25 00:45 Epinephrine HCl 250 ml @ 7.5 mls/hr Q24H IV 02/15/25 09:15 UNV Laboratory Results Laboratory Tests 02/14/25 23:30 02/15/25 06:30 Chemistry Test 02/14/25 19:56 02/14/25 23:30 02/15/25 06:30 Calcium Level 8.6 mg/dL (8.7-10.4) L 9.3 mg/dL (8.7-10.4) 8.7 mg/dL (8.7-10.4) Magnesium Level 2.2 mg/dL (1.6-2.6) 2.1 mg/dL (1.6-2.6) 2.1 mg/dL (1.6-2.6) Albumin 3.8 g/dL (3.2-4.8) Total Protein 6.1 g/dL (5.7-8.2) Coagulation Test 02/14/25 11:32 02/14/25 23:30 Prothrombin Time 13.3 sec (9.3-11.8) H 14.5 sec (9.3-11.8) H Prothrombin Time INR 1.29 (0.9-1.15) H 1.42 (0.9-1.15) H Activated Partial Thromboplast Time 32.9 SEC (24.5-34.5) LFT Test 02/14/25 23:30 Alanine Aminotransferase (ALT) 43 U/L (7-40) H Alkaline Phosphatase 214 U/L (46-116) H Aspartate Amino Transferase (AST) 42 U/L (13-40) H Total Bilirubin 1.2 mg/dL (0.2-1.0) H Urinalysis Test 01/10/25 09:18 Urine Color Yellow (Yellow) Urine Clarity Turbid (Clear) H Urine pH 6.5 (5.0-9.0) Urine Specific [place] 1.019 (1.001-1.035) Urine Protein 2+ (Negative) H Urine Ketones Negative (Negative) Urine Blood Negative /uL (Negative) Urine Nitrite Negative (Negative) Urine Bilirubin Negative (Negative) Urine Urobilinogen Normal mg/dL (Negative) Urine Leukocyte Esterase Trace /uL (Negative) Urine RBC 7 /hpf (0 - 4) Urine Microscopic WBC 4 /HPF (0-5) Urine Squamous Epithelial Cells Few /hpf (<5) Urine Bacteria None seen /hpf (None Seen) Urine Yeast (Budding) Moderate /hpf (None Seen) Urine Glucose 1+ mg/dL (Normal) H Blood Gas Results Test 02/14/25 23:29 02/15/25 01:04 02/15/25 06:33 Arterial Blood pH 7.245 (7.350-7.450) 7.286 (7.350-7.450) 7.272 (7.350-7.450) FiO2 % 100.0 100.0 90.0 Microbiology Microbiology Date/Time Source Procedure Growth Status 02/08/25 13:20 Blood Blood Culture - Final NO GROWTH AFTER 5 DAYS OF INCUBATION. Complete 02/01/25 05:00 Catheter Tip Aerobic Culture - Final Complete 01/24/25 10:06 Bronchial Washings Gram Stain - Final Complete 01/24/25 10:06 Bronchial Washings Respiratory Culture - Final Complete 01/10/25 09:18 Voided Urine Urine Culture - Final Presumptive Sully albicans Yeast, not Sully albicans Complete Labs and/or images reviewed: Labs reviewed by me, Image(s) reviewed by me Assessment/Plan Assessment/Plan Impression: -septic shock -right foot osteomyelitis -peripheral arterial disease -acute hypoxic respiratory failure -acute on chronic systolic and diastolic heart failure -end-stage renal disease with hemodialysis -diabetes mellitus Plan: Events: Patient became hemodynamically stable over the course of the night after receiving hemodialysis. Patient currently on 100% FiO2. ABG with worsening hypercarbic and metabolic acidosis. Discussion made with the patient's daughterzafar regarding poor prognosis and acute changes overnight. -vent changes: A.c. 450, tidal volume 26, peep of eight, FiO2 100% -one amp of sodium bicarbonate IV push -continue current vasopressors, add epinephrine to keep map greater than 65 mm of mercury -nephrology consultation: Recommendations reviewed. -cardiology consultation: Recommendations reviewed -regular insulin sliding scale -surgical consultation: Plans for right BKA tomorrow. Patient currently unstable. -platelet infusion Critical care time spent with patient discussing and formulating plan of care: 90 minutes. This does not include time spent performing procedures. This medical document was created using an electronic medical record system with [employer] dictation system. Although this document has been carefully reviewed, there may still be some phonetic and typographical errors. These areas are purely typographical due to imperfections of the software programs, and do not reflect any compromise in the patient's medical care. Plan discussed with: Patient, Daughter, Other (RN) My Orders Orders - TERRY REDD NP Procedure Category Date Status Time Midazolam Drip 100 PHA 02/14/25 In Process Mg/100ml Ns (Versed D 08:00 Abg W/ Co-Ox RT 02/15/25 Logged 06:00 Ventilator Orders RT 02/15/25 Transmitted 07:50 Abg W/ Co-Ox RT 02/15/25 Logged 10:00 Comprehensive LAB 02/16/25 Verified Metabolic Panel 04:00 PTPTT LAB 02/16/25 Verified 04:00 Sodium Bicarb PHA 02/15/25 Logged 50meq/50ml Vial 09:15 Epinephrine Hcl PHA 02/15/25 Logged 09:15 Date of Service: Feb 15, 2025 Billing Provider: TERRY REDD NP Common Visit Codes: [id number] CARE 30-74 MIN, [id number] CARE-EACH +30MIN TERRY REDD NP Feb 15, 2025 09:20
[2025-02-15] MEDS ORDERED: EPINEPHrine HCL INJECTION 16 MG in D5W 5% 234 ML IV SCH (09:30)
--- NOTE | 2025-02-15 09:37 | DVHPN2 ---
Consult Progress Note Date Seen: Feb 15, 2025 Subjective Other Systems: Notified of rhythm change last night post HD into A-fib with RVR with patient initiated on amiodarone drip, currently sinus tachycardia Objective vital signs Vital Sign Date Time Temp Pulse Resp B/P (MAP) Pulse Ox O2 Delivery O2 Flow Rate FiO2 02/15/25 08:45 94 26 157/16 (63) 89 98/34 (55) 02/15/25 07:35 100 02/15/25 06:00 Mechanical Ventilator+ 02/15/25 06:00 98.0 98.0 Total Intake and Output 02/14/25 02/14/25 02/15/25 15:00 23:00 07:00 Intake Total 80 ml 342.5 ml 120 ml Output Total 50 ml 150 ml Balance 80 ml 292.5 ml -30 ml medications Current Medications Medications Dose Ordered Sig/Seth Route Start Time Stop Time Status Last Admin Dose Admin Acetaminophen 325 mg Q4HP PRN PO 01/10/25 00:30 02/08/25 12:57 325 MG Ondansetron HCl 4 mg Q4HP PRN IV 01/10/25 00:30 01/20/25 16:19 4 MG Atorvastatin Calcium 40 mg HS PO 01/10/25 22:00 02/14/25 21:57 40 MG Levothyroxine Sodium 125 mcg QAM@0600 PO 01/11/25 06:00 02/15/25 06:12 125 MCG Dextrose 50 ml UD PRN IV 01/14/25 14:15 02/07/25 21:05 50 ML Fluconazole 100 mg POSTDI PRN PO 01/15/25 12:45 Cancel Albumin Human 100 ml @ 100 mls/hr WD PRN IV 01/18/25 21:00 02/14/25 23:08 100 MLS/HR Albuterol 2.5 mg Q4HPRN PRN NEB 01/20/25 16:00 02/14/25 09:03 2.5 MG Vancomycin HCl 0 ml @ 0 mls/hr PER PHARMACY IV 01/21/25 12:15 Cancel Fentanyl Citrate 250 ml @ 2.5 mls/hr Q24H IV 01/23/25 13:45 02/14/25 16:33 10 MLS/HR Enteral Nutritional Formula 1,000 ml 30ML/HR GT 01/23/25 18:00 02/13/25 13:59 1,000 ML Pantoprazole Sodium 40 mg BID IV 01/23/25 22:00 02/14/25 21:59 40 MG Sodium Chloride 1,000 ml @ 200 mls/hr Q5H IV 01/25/25 11:00 Cancel Amiodarone HCl 100 mg Q12HR PO 01/25/25 22:00 02/14/25 21:59 100 MG Levalbuterol HCl 1.25 mg Q4HR NEB 02/02/25 14:30 02/15/25 06:02 1.25 MG Ipratropium [place] 0.5 mg Q4HR NEB 02/02/25 18:00 02/15/25 06:02 0.5 MG Metoclopramide HCl 10 mg Q8HR GT 02/07/25 14:00 02/15/25 06:12 10 MG Ertapenem 0.5 gm/ Sodium Chloride 50 ml @ 100 mls/hr HS IV 02/07/25 22:00 02/15/25 03:10 100 MLS/HR Hydralazine HCl 10 mg Q6HP PRN IV 02/07/25 18:15 02/12/25 17:42 10 MG Norepinephrine Bitartrate 32 mg/ Sodium Chloride 250 ml @ 0.469 mls/ hr Q24H IV 02/10/25 03:30 02/15/25 06:00 6.563 MLS/HR Vancomycin HCl 0 ml @ 0 mls/hr PER PHARMACY IV 02/11/25 21:30 Diagnostic Test (Pha) 1 strip Q6HR 02/12/25 12:00 02/15/25 06:29 1 STRIP Insulin Human Regular Q6HR SC 02/12/25 12:00 02/15/25 06:34 2 UNITS Albumin Human 100 ml @ 100 mls/hr Q1HR PRN IV 02/14/25 14:15 03/03/25 06:00 Midazolam HCl 100 ml @ 1 mls/hr Q24H IV 02/14/25 08:00 02/14/25 08:00 1 MLS/HR Phenylephrine HCl 250 ml @ 30 mls/hr Q8H20M IV 02/14/25 21:30 Cancel Phenylephrine HCl 80 mg/Sodium Chloride 250 ml @ 7.5 mls/hr Q24H IV 02/14/25 22:45 02/15/25 06:00 33.75 MLS/HR Vasopressin 20 units/Sodium Chloride 100 ml @ 9 mls/hr Q11H7M IV 02/14/25 23:30 02/14/25 23:30 9 MLS/HR Amiodarone HCl 250 ml @ 16.66 mls/ hr Q15H1M IV 02/15/25 06:15 02/15/25 06:28 16.66 MLS/HR Heparin Sodium (Porcine) 2,800 units SHAY PRN XX 02/15/25 00:45 Epinephrine HCl 250 ml @ 7.5 mls/hr Q24H IV 02/15/25 09:15 Epinephrine HCl 250 ml @ 7.5 mls/hr Q24H IV 02/15/25 09:15 Examination: GENERAL:Abnormal, LUNGS:Abnormal (Endotracheally intubated with 100% FiO2), CVS:Abnormal (Sinus tachycardia. On multiple vasopressors), MSK:Abnormal, SKIN:Abnormal, NEURO:Abnormal (Chemically sedated) laboratory and microbiology Laboratory Tests 02/15/25 06:30 02/14/25 23:30 Test 02/15/25 06:30 Range/Units Serum Glucose 136 H 74-106 mg/dL Problem List/Assessment/Plan Problem List/Assessment/Plan Non-sustained ventricular tachycardia Peripheral arterial disease status post SCRATCHER f the right peroneal artery () Right lower extremity cellulitis/osteomyelitis Chronic HFrEF, NYHA class II Biventricular heart failure Presence of AICD ([place]) Pulmonary hypertension, severe Left upper extremity DVT Dyslipidemia Thyroid disease End-stage renal disease on hemodialysis Severe anemia/thrombocytopenia s/p transfusions Type 2 diabetes mellitus Obesity Plan/Recommendation (Dr. Sanchez) Recent transthoracic echocardiogram revealed LVEF 20% with global hypokinesis (see full dictated report). Re-initiate amiodarone drip per pharmacy protocol as needed. Currently on hold given labile BP. Continue QUAD concentration vasopressors for hemodynamic support. Continue electrolyte replenishment as necessary K>4 & Mg>2. Currently off DAPT and AC therapy with recent SCRATCHER of the RLE which places the patient at high-risk for in-stent restenosis. Continue lipid-lowering agent. Monitor H&H and platelet count closely. Consider goals of care. Grave prognosis. Kindly call if in need of further recommendations. Thank you for allowing us to care for this patient. Critical care time: 30 min. This medical document was created using an electronic medical record system with voice recognition software and computerized dictation system. Although this document has been carefully reviewed, there might still be some phonetic and typographical errors. Occasional wrong-word or ``sound-alike substitutions may have occurred due to the inherent limitations of voice recognition software. These areas are purely typographical due to imperfections of the software programs and do not reflect any compromise in the patient's medical care. Please read the chart carefully and recognize, using context, where these substitutions have occurred. Plan discussed with: Other Dietary Evaluation Review Comments: Nutrition Recommendation 1) CCHO 60gm + renal standard diet 2) Nephro-santosh 1 tab daily 3) Lexx 1 pk daily 4) Monitor PO intake, lab values, weight trend, and I/O Expected Outcomes/Goals: To meet >75% estimated needs Wound to improve Fu 3-5 days CC Plasma Assessment Blood Product Administration S: [id number] Date of Service: Feb 15, 2025 Billing Provider: RENÉE LOBATO Cardiology Common Codes: 62411-HYNSPQZM CARE 30-74 MIN RENÉE LOBATO Feb 15, 2025 09:37
[2025-02-15 10:17] LABS: Base Excess -3.2 mmol/L (-2.0-3.0)
[2025-02-15 11:11] LABS: Base Excess -6.2 mmol/L (-2.0-3.0)
--- NOTE | 2025-02-15 11:34 | DVHDS2 ---
Discharge Summary Date of Admission Jan 10, 2025 at 00:22 Date of Discharge: Feb 15, 2025 Admitting Diagnosis Diabetic foot ulcer with right foot osteomyelitis Labs/Diagnostic Data: Laboratory Results Test 02/15/25 11:03 02/15/25 11:01 02/15/25 06:30 02/15/25 01:10 POC Glucose 103 mg/dl (70-106) Blood Gas Specimen Type Arterial Blood Gas Sample Site Arterial line Blood Gas Patient Temperature 37.0 Arterial Blood Date Drawn [id number] Arterial Blood pH 7.201 (7.350-7.450) Arterial Blood Partial Pressure CO2 56.4 mmHg (32.0-45.0) Arterial Blood Partial Pressure O2 38.9 mmHg (83.0-108.0) Arterial Blood HCO3 21.6 mmol/L (21.0-28.0) Arterial Blood Oxygen Saturation 62.7 % (94.0-98.0) Arterial Blood Base Excess -6.2 mmol/L (-2.0-3.0) Arterial Blood Oxyhemoglobin 61.9 % (94.0-98.0) Arterial Blood Carboxyhemoglobin 0.9 % (0.5-1.5) Arterial Blood Methemoglobin 0.4 % (0.0-1.5) Gene Test N/a Blood Gas Total Hemoglobin 8.10 g/dL (12.0-16.0) Blood Gas Set Respiration Rate 26.0 Blood Gas Modality Vent - ac FiO2 % 100.0 Blood Gas Tidal Volume 450.0 Blood Gas PEEP or CPAP 8.0 Blood Gas Critical Value Read Back Yes Blood Gas Notified Whom Rudy redd Blood Gas Notified Time [id number] Blood Gas Notified By Sodium Level 142 mmol/L (136-145) Potassium Level 3.8 mmol/L (3.5-5.1) Chloride Level 104 mmol/L (98-107) Carbon Dioxide Level 23 mmol/L (20-31) Anion Gap 15 (5-15) Blood Urea Nitrogen 76 mg/dL (9-23) Creatinine 3.66 mg/dL (0.550-1.02) Glomerular Filtration Rate Calc 13 mL/min (>90) BUN/Creatinine Ratio 20.8 (10.0-20.0) Serum Glucose 136 mg/dL (74-106) Calcium Level 8.7 mg/dL (8.7-10.4) Magnesium Level 2.1 mg/dL (1.6-2.6) Troponin I High Sensitivity 1467 ng/L (</=34) Random Vancomycin Level 22.3 ug/mL (5-10) Lactic Acid Level 2.1 mmol/L (0.4-2.0) Test 02/14/25 23:30 02/14/25 11:32 02/11/25 07:00 02/11/25 03:10 White Blood Count 15.5 10^3/uL (4.4-10.8) Red Blood Count 2.48 10^6/uL (4.0-5.20) Hemoglobin 7.9 g/dL (12.2-16.2) Hematocrit 24.4 % (36.0-46.0) Mean Corpuscular Volume 98.2 fL (80.0-100.0) Mean Corpuscular Hemoglobin 31.9 pg (28.0-32.0) Mean Corpuscular Hemoglobin Concent 32.5 g/dL (32.0-36.0) Red Cell Distribution Width 22.1 % (11.8-14.3) Platelet Count 50 10^3/uL (140-450) Mean Platelet Volume 9.9 fL (6.9-10.8) Neutrophils (%) (Auto) 97.5 % (37.0-80.0) Lymphocytes (%) (Auto) 0.7 % (10.0-50.0) Monocytes (%) (Auto) 1.5 % (0.0-12.0) Eosinophils (%) (Auto) 0.2 % (0.0-7.0) Basophils (%) (Auto) 0.1 % (0.0-2.0) Neutrophils # (Auto) 15.1 10 ^3/uL (1.6-8.6) Lymphocytes # (Auto) 0.1 10 ^3/uL (0.4-5.4) Monocytes # (Auto) 0.2 10 ^3/uL (0-1.3) Eosinophils # (Auto) 0 10 ^3/uL (0-0.8) Basophils # (Auto) 0 10 ^3/uL (0-0.2) Nucleated Red Blood Cells 0.2 % Prothrombin Time 14.5 sec (9.3-11.8) Prothrombin Time INR 1.42 (0.9-1.15) Total Bilirubin 1.2 mg/dL (0.2-1.0) Aspartate Amino Transferase (AST) 42 U/L (13-40) Alanine Aminotransferase (ALT) 43 U/L (7-40) Alkaline Phosphatase 214 U/L (46-116) Total Protein 6.1 g/dL (5.7-8.2) Albumin 3.8 g/dL (3.2-4.8) Activated Partial Thromboplast Time 32.9 SEC (24.5-34.5) Stool for White Cells None seen Platelet Estimate Decreased Anisocytosis (manual) Slight Test 02/07/25 12:38 02/05/25 10:40 02/04/25 03:10 02/01/25 09:58 Hepatitis B Surface Antigen Negative (Negative) Blood Gas Spontaneous Rate 34 Phosphorus Level 5.2 mg/dL (2.4-5.1) Differential Total Cells Counted 100.0 (100) Neutrophils % (Manual) 89 (37.0-80.0) Band Neutrophils % (Manual) 6 Lymphocytes % (Manual) 2 (10.0-50.0) Monocytes % (Manual) 3 (0-12) Eosinophils % (Manual) 0 (0-7) Basophils % (Manual) 0 (0.0-2.0) Metamyelocytes % (manual) 0 Myelocytes % (Manual) 0 Promyelocytes % (Manual) 0 Blast Cells % (Manual) 0 Reactive Lymphocytes 0 Test 01/30/25 11:40 01/28/25 02:48 01/27/25 03:51 01/25/25 02:45 Influenza Type A Antigen Negative (Negative) Influenza Type B Antigen Negative (Negative) SARS-CoV-2 Antigen (Rapid) Negative (NEGATIVE) Anti-Nuclear Antibody Screen Negative (Negative) Large Platelets Few B-Type Natriuretic Peptide 4977.28 pg/mL (0-100) Test 01/23/25 08:30 01/21/25 20:23 01/10/25 11:31 01/10/25 09:18 Blood Gas Liter Flow 8.00 Stool Occult Blood Positive (Negative) Stool Occult Blood Sample #3 (Negative) Hemoglobin A1c 7.3 % A1C (<5.7) Triglycerides Level 79 mg/dL (< 150) Cholesterol Level 91 mg/dL (< 200) LDL Cholesterol 35 mg/dL (< 100) HDL Cholesterol 37 mg/dL (40-59) Vitamin B12 Level > 4000 pg/mL (211-911) Vitamin D 25-Hydroxy 63.2 ng/mL (30.0-100) Thyroid Stimulating Hormone (TSH) 3.78 uIU/mL (0.55-4.78) Urine Color Yellow (Yellow) Urine Clarity Turbid (Clear) Urine pH 6.5 (5.0-9.0) Urine Specific [place] 1.019 (1.001-1.035) Urine Protein 2+ (Negative) Urine Ketones Negative (Negative) Urine Blood Negative /uL (Negative) Urine Nitrite Negative (Negative) Urine Bilirubin Negative (Negative) Urine Urobilinogen Normal mg/dL (Negative) Urine Leukocyte Esterase Trace /uL (Negative) Urine RBC 7 /hpf (0 - 4) Urine Microscopic WBC 4 /HPF (0-5) Urine Squamous Epithelial Cells Few /hpf (<5) Urine Bacteria None seen /hpf (None Seen) Urine Yeast (Budding) Moderate /hpf (None Seen) Urine Glucose 1+ mg/dL (Normal) Urine Opiates Screen Neg (NEGATIVE) Urine Fentanyl Screen Neg (NEGATIVE) Urine Barbiturates Screen Neg (NEGATIVE) Urine Phencyclidine Screen Neg (NEGATIVE) Urine Amphetamines Screen Neg (NEGATIVE) Urine Benzodiazepines Screen Neg (NEGATIVE) Urine Cocaine Screen Neg (NEGATIVE) Urine Cannabinoids Screen Neg (NEGATIVE) Test 01/09/25 23:40 Erythrocyte Sedimentation Rate 54 mm/hr (0-20) C-Reactive Protein High Sensitivity 4.44 mg/dL (<1.0) Hepatitis C Antibody Negative (Negative) Other Laboratory Tests 02/15/25 06:30 02/14/25 23:30 Brief Hx & Hospital Course: History of Present Illness Kaitlin Ojeda is a 64-year-old female patient who presents to ED with chief complaint of nonhealing right foot wound which started three weeks before her admission, progressively got worse presenting purulent discharge with foul smell and not able to bear weight on her foot. Worsening symptoms prompted her visit to the ED. Patient denies any associated symptoms including fever, chills, palpitation, syncope and dysuria. Course of hospitalization: Patient has a prolonged course of hospitalization. Initially she had I and D of her right foot podiatry. Patient was treated with empiric IV antibiotic therapy, which was tailored to her positive cultures with antibiotics essentially being managed by the Infectious Disease physician, Dr. Goldsmith. Patient had worsening clinical status, requiring mechanical intubation. Patient develop multifocal pneumonia, with acute respiratory distress syndrome. Pulmonology consultation was obtained. Patient had improvement with her respiratory status. Right foot continue to worsen, coming gangrenous. Long discussion was made by myself with the patient's family regarding plan of care which included need for right [id number] amputation given poor arterial blood flow to her extremity as well as worsening right foot osteomyelitis. Patient was continued on hemodialysis while in the hospital, with multiple occasions the patient becoming severely unstable requiring vasopressor therapy as well as converting to AFib with RVR requiring IV amiodarone. Plans were to take the patient for right BKA tomorrow. Over the past24 hours the patient's overall clinical status worsened, requiring vasopressor therapy of four different medications as well as worsening hypoxia despite being on 100% FiO2 and a PEEP of eight. The patient did have cardiopulmonary arrest today, with patient having ROSC on several occasions. Long discussion was made with the patient's family regarding poor prognosis. Patient subsequently declined to asystole. Time of called at 11:30 a.m.. Total time spent with patient discussing and formulating plan of care: 35 minutes. This medical document was created using an electronic medical record system with [employer] dictation system. Although this document has been carefully reviewed, there may still be some phonetic and typographical errors. These areas are purely typographical due to imperfections of the software programs, and do not reflect any compromise in the patient's medical care. Consults/Reason for consult Podiatry: Right foot diabetic ulcer with osteomyelitis Nephrology: ESRD with hemodialysis Pulmonology: Acute respiratory failure with ARDS Cardiology: Biventricular heart failure with NSTEMI General surgery: Right foot osteomyelitis Operations or Procedures Right foot I and D Condition at Discharge: Poor Final Diagnosis/Problems List -septic shock -right foot osteomyelitis -peripheral arterial disease -acute hypoxic respiratory failure -acute on chronic systolic and diastolic heart failure -end-stage renal disease with hemodialysis -diabetes mellitus Discharge Disposition: at Hospital Discharge Instruct/Medications Scheduled Atorvastatin Calcium (Atorvastatin Calcium), 1 TAB PO DAILY, (Reported) Carvedilol (Carvedilol), 1 TAB PO BID, (Reported) Fluoxetine HCl (Fluoxetine HCl), 1 CAP PO DAILY, (Reported) Furosemide (Furosemide), 1 TAB PO BID, (Reported) Levothyroxine Sodium (Levothyroxine Sodium), 1 TAB PO DAILY, (Reported) Trazodone Hcl (Trazodone Hcl), 1 TAB PO DAILY, (Reported) 36 Discharge Statement: "Patient was advised to return to the ER or call 911 if any headaches, dizziness, shortness of breath, chest pain, abdominal pain, bleeding, fevers, or worsening of medical condition. Patient was counseled about treatment plan, medications, possible side effects, patientverbalized understanding. All questions were answered to the best of my ability. This discharge took greater then 30 minutes in planning, reviewing documentation, counseling the patient, and discussing with other team members." ASSESSMENT ASSESSMENT Assessment Same as preop Date of Service: Feb 15, 2025 Billing Provider: TERRY REDD NP Common Visit Codes: 45340-HID/OBS DISCH DAY >30min TERRY REDD NP Feb 15, 2025 11:33
--- NOTE | 2025-02-15 12:07 | RESUS ---
MARIO POWELL ASSESSSMENT History of Events History of Events: Per primary nurse sAtrid RN, patient's blood pressure started to drop. Went to check on patient and no palpable pulses present. Mario powell called. Patient on ventilator, maxed out on muliple pressors (epi, matt, vaso, nore). See EMAR. Hx: Right foot gangrene, Sepsis,ESRD, Diabetes, Cardiac. Initial Information Date: Feb 15, 2025 Time: 10:52 Location of Arrest: ICU (Central) (262) Arrest Witnessed: No CPR started initial time: 10:52 CPR started by whom: Hospital Staff Pre-Hospital Care: ACLS Type of arrest: Cardiac, Respiratory, Adult, Witnessed Spontaneous Respirations: No Pulse Present: No Monitoring: ECG, Pulse Oximetry, Capnography, Telemetry Crash Cart Opened and Supplies: Yes Airway Ventilation Breathing at Onset: Assisted Oxygen Delivery Method: Ambu-Bag Oxygen 25 liters via ambu bag Artificial Ventilation: Bag/Mask, Bag/Endo tube Intubation Size: 8.0 cuffed Intubated orally: Yes Tube secured at: 20 Suctioning (Oral/Tracheal): No Comments: Patient intubated prior to mario powell. Circulation Circulation #1: Time: 10:52 Pulse Rate (adult): 0 Blood Pressure Systolic: 0 Blood Pressure Diastolic: 0 Circulation #2: Time: 10:56 Pulse Rate (adult): 127 Blood Pressure Systolic: 94 Blood Pressure Diastolic: 57 Temperature (Fahrenheit): 98.7 Circulation Comment: O2sat 58% Circulation #3: Time: 11:00 Pulse Rate (adult): 110 Blood Pressure Systolic: 65 Blood Pressure Diastolic: 34 Circulation Comment: O2sat 68% Circulation #4: Time: 11:05 Pulse Rate (adult): 89 Blood Pressure Systolic: 58 Blood Pressure Diastolic: 32 Circulation Comment: O2sat 64% Circulation #5: Time: 11:09 Pulse Rate (adult): 0 Blood Pressure Systolic: 0 Blood Pressure Diastolic: 0 Circulation #6: Time: 11:19 Pulse Rate (adult): 83 Blood Pressure Systolic: 61 Blood Pressure Diastolic: 33 Circulation Comment: O2sat 38% Circulation #7: Time: 11:25 Pulse Rate (adult): 74 Blood Pressure Systolic: 49 Blood Pressure Diastolic: 33 Circulation #8: Time: 11:30 Pulse Rate (adult): 0 Blood Pressure Systolic: 0 Blood Pressure Diastolic: 0 Medications & Response Medications and Responses #1: Medication Time: 10:52 ADULT Medications Given ADULT: Epinephrine 1 mg, Sodium Bacarbinate 50 meq Route of Administration: IV Heart Rate: 0 EKG Rhythm: PEA Blood Pressure Systolic: 0 Blood Pressure Diastolic: 0 EKG Rhythm: Asystole Medications and Responses #2: Medication Time: 10:54 ADULT Medications Given ADULT: Calcium Chloride 10 mL Route of Administration: IV Heart Rate: 0 EKG Rhythm: Asystole Blood Pressure Systolic: 0 Blood Pressure Diastolic: 0 EKG Rhythm: Asystole Medications and Responses #3: Medication Time: 10:55 ADULT Medications Given ADULT: Epinephrine 1 mg Route of Administration: IV Heart Rate: 0 EKG Rhythm: PEA Blood Pressure Systolic: 0 Blood Pressure Diastolic: 0 O2 Sat by Pulse Oximetry: 58 EKG Rhythm: Sinus Tachycardia Medications and Responses #4: Medication Time: 11:10 ADULT Medications Given ADULT: Epinephrine 1 mg, Sodium Bacarbinate 50 meq Route of Administration: IV Heart Rate: 0 EKG Rhythm: PEA Blood Pressure Systolic: 0 Blood Pressure Diastolic: 0 Respiratory Rate: 0 EKG Rhythm: PEA Medications and Responses #5: Medication Time: 11:13 ADULT Medications Given ADULT: Epinephrine 1 mg Route of Administration: IV Heart Rate: 0 EKG Rhythm: PEA Blood Pressure Systolic: 0 Blood Pressure Diastolic: 0 O2 Sat by Pulse Oximetry: 45 EKG Rhythm: PEA Medications and Responses #6: Medication Time: 11:16 ADULT Medications Given ADULT: Epinephrine 1 mg, Sodium Bacarbinate 50 meq Route of Administration: IV Heart Rate: 0 EKG Rhythm: PEA Blood Pressure Systolic: 0 Blood Pressure Diastolic: 0 O2 Sat by Pulse Oximetry: 66 EKG Rhythm: Agonal Procedure - NG/OG Tube Procedure - NG/OG Tube : Type of gastric tube placed: OG Gastric Tube Location: Oral Tube Size: 16 GI Tube Secured: Yes Gastric Tube Suction Type/Desc: Clamped Gastric Content Description: Clear Comment NGT placed prior to code blue. Procedure - Central Venous Cat Central venous catheter site: Left thigh Comment: Placed prior to code blue. Patient also had left femoral A-line and Right femoral mariam cath. Both placed prior to code blue and secured in place. Nurses Notes [place] Coma Scale Eye Opening: None (1) (SEDATED) [place] Coma Scale Verbal: None (1) (INTUBATED) [place] Coma Scale Motor: None (1) (SEDATED) [place] Total: 3 Pupil Reaction: Sluggish Bedside Blood Glucose: 103 EKG Rhythm: Sinus Tachycardia, PEA, Agonal, Asystole Nurses Notes - Comment: 1052: Code blue 1056: ROSC 1109: Code blue 1119: ROSC 1130: Time Code Ended Time Code Ended: 11:30 Post Arrest Status: Outcome of code: Unsuccessful Patient pronounced by: Rena Terrell NP Time patient pronounced: 11:30 Family notified: Yes (Family at bedside.) Attending called: Yes Code Team Present: Rena Terrell NP, Natividad Pryor MD, Cole RN, Astrid RN, Sasha RN, Josy RT, Nasreen RT, mary ann RN, Heather RN, Liyah RN Comment: Family notified of at bedside by Rena Terrell NP. Post Resuscitation Neurologica Pupil Size: 3 Comment: Fixed equal and dilated. Liyah Evans Feb 15, 2025 12:06
[2025-02-15] MEDS ORDERED: SODIUM BICARB 8.4% 50Meq/50ml SYR INJ IV ONE (12:34)
[2025-02-15] MEDS ORDERED: CALCIUM CHLOR(10%) 100MG/ML 10ML SYRINGE IV ONE (12:34)
[2025-02-15] MEDS ORDERED: EPINEPHrine HCL 1 MG/10 ML SYRG IV ONE ×2 (12:34→14:53)
[2025-02-15] MEDS ORDERED: EPOETIN ALFA-EPBX 10,000 UNIT/1ML VIAL SC ONE (21:00)
--- NOTE | 2025-02-16 06:22 | DVHPN2 ---
Consult Progress Note Objective vital signs Vital Sign Date Time Temp Pulse Resp B/P (MAP) Pulse Ox O2 Delivery O2 Flow Rate FiO2 02/15/25 12:32 0 66 02/15/25 12:06 Ambu-Bag 02/15/25 11:15 92/20 (44) 151/30 (70) 02/15/25 10:00 100 Total Intake and Output 02/15/25 02/15/25 02/16/25 15:00 23:00 07:00 Intake Total 201.00 ml Balance 201.00 ml medications Current Medications Medications Dose Ordered Sig/Seth Route Start Time Stop Time Status Last Admin Dose Admin Fluconazole 100 mg POSTDI PRN PO 01/15/25 12:45 Cancel Vancomycin HCl 0 ml @ 0 mls/hr PER PHARMACY IV 01/21/25 12:15 Cancel Sodium Chloride 1,000 ml @ 200 mls/hr Q5H IV 01/25/25 11:00 Cancel Phenylephrine HCl 250 ml @ 30 mls/hr Q8H20M IV 02/14/25 21:30 Cancel laboratory and microbiology Laboratory Tests 02/15/25 06:30 02/14/25 23:30 Test 02/15/25 06:30 Range/Units Serum Glucose 136 H 74-106 mg/dL Problem List/Assessment/Plan Problem List/Assessment/Plan influenza a, covid, rsv negative BAL culture and blood cultures negative mrsa nares negative levophed ongoing and high vent needs = levophed 2, fio2 30%, on heparin [id number] weaned cxr with extensive bilateral airspace disease, some consolidative features present. 02/06: vancomycin started empirically, blood culture acquire for persistent levophed, increased fio2 need 02/10: without blood culture positive, tolerance of HD w/ improved FIO2 needs Plans: copd and chf exacerbation per cardiology and pulmonology team CT R foot with soft tissue swelling no osteomyelitis, unclear if masked by ertapenem use patient appears responsive to vancomycin albiet ongoing leukocytosis could be related to progressive R foot debridement, consider surgical consultation for bedside InD continue vancomycin goal through 15-20 6 weeks ertapenem anticipated, EOT date is 02/28/25. dialysis as tolerated, UOP is 0 maps>65 Dietary Evaluation Review Comments: Nutrition Recommendation 1) CCHO 60gm + renal standard diet 2) Nephro-santosh 1 tab daily 3) Lexx 1 pk daily 4) Monitor PO intake, lab values, weight trend, and I/O Expected Outcomes/Goals: To meet >75% estimated needs Wound to improve Fu 3-5 days CC Plasma Assessment Blood Product Administration S: 1357 CONY TAYLOR MD Feb 16, 2025 06:22
--- NOTE | 2025-02-18 13:38 | ECG ---
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
== END 2025-02-15 17:10 | DRG 853 ==
LOC: EDSEX 22:38 → EDUNIT# 22:38 → EDBD 22:38 → ER 22:38 → OVERFLOW 01-10 00:22 → TELE-EAST 01-10 02:44 → EAST 01-19 12:13 → TELE-EAST 01-19 21:29 → ICU CENTRL 01-23 03:03
PROVIDERS: ADMIT Nurse Practitioner Acute Care; ATTEND Nurse Practitioner Acute Care
PROC: 0J9Q0ZZ Drainage of Right Foot Subcutaneous Tissue and Fascia, Open Approach (ICD-10-PCS; 2025-01-11)
PROC: 047S3ZZ Dilation of Left Posterior Tibial Artery, Percutaneous Approach (ICD-10-PCS; principal; 2025-01-12)
PROC: 047T3ZZ Dilation of Right Peroneal Artery, Percutaneous Approach (ICD-10-PCS; 2025-01-12)
PROC: B41G1ZZ Fluoroscopy of Left Lower Extremity Arteries using Low Osmolar Contrast (ICD-10-PCS; 2025-01-12)
PROC: B41F1ZZ Fluoroscopy of Right Lower Extremity Arteries using Low Osmolar Contrast (ICD-10-PCS; 2025-01-12)
PROC: 5A1D70Z Performance of Urinary Filtration, Intermittent, Less than 6 Hours Per Day (ICD-10-PCS; 2025-01-12)
PROC: 02HV33Z Insertion of Infusion Device into Superior Vena Cava, Percutaneous Approach (ICD-10-PCS; 2025-01-12)
PROC: B548ZZA Ultrasonography of Superior Vena Cava, Guidance (ICD-10-PCS; 2025-01-12)
PROC: 5A1D70Z Performance of Urinary Filtration, Intermittent, Less than 6 Hours Per Day (ICD-10-PCS; 2025-01-14)
PROC: 0J9Q0ZZ Drainage of Right Foot Subcutaneous Tissue and Fascia, Open Approach (ICD-10-PCS; 2025-01-15)
PROC: 0J9Q0ZZ Drainage of Right Foot Subcutaneous Tissue and Fascia, Open Approach (ICD-10-PCS; 2025-01-17)
PROC: 30233N1 Transfusion of Nonautologous Red Blood Cells into Peripheral Vein, Percutaneous Approach (ICD-10-PCS; 2025-01-17)
PROC: 30233R1 Transfusion of Nonautologous Platelets into Peripheral Vein, Percutaneous Approach (ICD-10-PCS; 2025-01-19)
PROC: 5A1D70Z Performance of Urinary Filtration, Intermittent, Less than 6 Hours Per Day (ICD-10-PCS; 2025-01-19)
PROC: 5A1D70Z Performance of Urinary Filtration, Intermittent, Less than 6 Hours Per Day (ICD-10-PCS; 2025-01-20)
PROC: 0BH17EZ Insertion of Endotracheal Airway into Trachea, Via Natural or Artificial Opening (ICD-10-PCS; 2025-01-23)
PROC: 5A1955Z Respiratory Ventilation, Greater than 96 Consecutive Hours (ICD-10-PCS; 2025-01-23)
PROC: 02HV33Z Insertion of Infusion Device into Superior Vena Cava, Percutaneous Approach (ICD-10-PCS; 2025-01-23)
PROC: 5A1D70Z Performance of Urinary Filtration, Intermittent, Less than 6 Hours Per Day (ICD-10-PCS; 2025-01-23)
PROC: 5A1D70Z Performance of Urinary Filtration, Intermittent, Less than 6 Hours Per Day (ICD-10-PCS; 2025-01-24)
PROC: 0B9J8ZZ Drainage of Left Lower Lung Lobe, Via Natural or Artificial Opening Endoscopic (ICD-10-PCS; 2025-01-24)
PROC: 5A1D70Z Performance of Urinary Filtration, Intermittent, Less than 6 Hours Per Day (ICD-10-PCS; 2025-01-27)
PROC: 5A1D70Z Performance of Urinary Filtration, Intermittent, Less than 6 Hours Per Day (ICD-10-PCS; 2025-01-28)
PROC: 5A1D70Z Performance of Urinary Filtration, Intermittent, Less than 6 Hours Per Day (ICD-10-PCS; 2025-01-30)
PROC: 02HV33Z Insertion of Infusion Device into Superior Vena Cava, Percutaneous Approach (ICD-10-PCS; 2025-01-30)
PROC: B548ZZA Ultrasonography of Superior Vena Cava, Guidance (ICD-10-PCS; 2025-01-30)
PROC: 02HV33Z Insertion of Infusion Device into Superior Vena Cava, Percutaneous Approach (ICD-10-PCS; 2025-01-31)
PROC: B548ZZA Ultrasonography of Superior Vena Cava, Guidance (ICD-10-PCS; 2025-01-31)
PROC: 30233K1 Transfusion of Nonautologous Frozen Plasma into Peripheral Vein, Percutaneous Approach (ICD-10-PCS; 2025-02-01)
PROC: 5A1D70Z Performance of Urinary Filtration, Intermittent, Less than 6 Hours Per Day (ICD-10-PCS; 2025-02-01)
PROC: 5A12012 Performance of Cardiac Output, Single, Manual (ICD-10-PCS; 2025-02-02)
PROC: 02HV33Z Insertion of Infusion Device into Superior Vena Cava, Percutaneous Approach (ICD-10-PCS; 2025-02-02)
PROC: 04HY32Z Insertion of Monitoring Device into Lower Artery, Percutaneous Approach (ICD-10-PCS; 2025-02-02)
PROC: 5A1D70Z Performance of Urinary Filtration, Intermittent, Less than 6 Hours Per Day (ICD-10-PCS; 2025-02-02)
PROC: 5A1D70Z Performance of Urinary Filtration, Intermittent, Less than 6 Hours Per Day (ICD-10-PCS; 2025-02-03)
PROC: 5A1D70Z Performance of Urinary Filtration, Intermittent, Less than 6 Hours Per Day (ICD-10-PCS; 2025-02-05)
PROC: 5A1D70Z Performance of Urinary Filtration, Intermittent, Less than 6 Hours Per Day (ICD-10-PCS; 2025-02-07)
PROC: 5A1D70Z Performance of Urinary Filtration, Intermittent, Less than 6 Hours Per Day (ICD-10-PCS; 2025-02-10)
PROC: 5A1D70Z Performance of Urinary Filtration, Intermittent, Less than 6 Hours Per Day (ICD-10-PCS; 2025-02-13)
PROC: 5A1D70Z Performance of Urinary Filtration, Intermittent, Less than 6 Hours Per Day (ICD-10-PCS; 2025-02-14)
PROC: 5A12012 Performance of Cardiac Output, Single, Manual (ICD-10-PCS; 2025-02-15)
DX: A41.9 Sepsis, unspecified organism (principal); G93.41 Metabolic encephalopathy; N18.6 End stage renal disease; J69.0 Pneumonitis due to inhalation of food and vomit; I21.4 Non-ST elevation (NSTEMI) myocardial infarction; I50.43 Acute on chronic combined systolic (congestive) and diastolic (congestive) heart failure; N17.0 Acute kidney failure with tubular necrosis; R65.21 Severe sepsis with septic shock; J80 Acute respiratory distress syndrome; I13.2 Hypertensive heart and chronic kidney disease with heart failure and with stage 5 chronic kidney disease, or end stage renal disease; D63.1 Anemia in chronic kidney disease; E83.39 Other disorders of phosphorus metabolism; D68.9 Coagulation defect, unspecified; E11.52 Type 2 diabetes mellitus with diabetic peripheral angiopathy with gangrene; L03.115 Cellulitis of right lower limb; I47.20 Ventricular tachycardia, unspecified; M86.8X7 Other osteomyelitis, ankle and foot; L02.611 Cutaneous abscess of right foot; Z99.2 Dependence on renal dialysis; I46.9 Cardiac arrest, cause unspecified; J40 Bronchitis, not specified as acute or chronic; D69.6 Thrombocytopenia, unspecified; E03.9 Hypothyroidism, unspecified; E66.9 Obesity, unspecified; I27.20 Pulmonary hypertension, unspecified; D68.32 Hemorrhagic disorder due to extrinsic circulating anticoagulants; B37.49 Other urogenital candidiasis; N25.81 Secondary hyperparathyroidism of renal origin; Z16.12 Extended spectrum beta lactamase (ESBL) resistance; I82.622 Acute embolism and thrombosis of deep veins of left upper extremity; I82.A12 Acute embolism and thrombosis of left axillary vein; E87.20 Acidosis, unspecified; Z20.822 Contact with and (suspected) exposure to COVID-19; E11.621 Type 2 diabetes mellitus with foot ulcer; E11.22 Type 2 diabetes mellitus with diabetic chronic kidney disease; E11.69 Type 2 diabetes mellitus with other specified complication; E78.00 Pure hypercholesterolemia, unspecified; L97.519 Non-pressure chronic ulcer of other part of right foot with unspecified severity; F41.9 Anxiety disorder, unspecified; S92.911A Unspecified fracture of right toe(s), initial encounter for closed fracture; E11.649 Type 2 diabetes mellitus with hypoglycemia without coma; I45.10 Unspecified right bundle-branch block; L89.156 Pressure-induced deep tissue damage of sacral region; I48.91 Unspecified atrial fibrillation; M60.861 Other myositis, right lower leg; I50.82 Biventricular heart failure; Z95.810 Presence of automatic (implantable) cardiac defibrillator; Z89.511 Acquired absence of right leg below knee; Z83.3 Family history of diabetes mellitus; Z79.84 Long term (current) use of oral hypoglycemic drugs; Z79.899 Other long term (current) drug therapy; X58.XXXA Exposure to other specified factors, initial encounter; Y92.89 Other specified places as the place of occurrence of the external cause; Y95 Nosocomial condition
CPT/HCPCS: 36415; 36556; 36569; 36600; 36620; 37228; 70450; 71045; 71250; 73700; 74018; 74176; 75716; 76937; 80048; 80053; 80061; 80202; 80307; 81001; 82270; 82306; 82565; 82607; 82805; 82962; 83036; 83605; 83735; 83880; 84100; 84132; 84443; 84484; 85007; 85025; 85027; 85048; 85049; 85610; 85652; 85730; 86038; 86141; 86803; 86850; 86900; 86901; 86920; 87040; 87070; 87075; 87076; 87081; 87086; 87088; 87205; 87340; 87426; 87804; 90935; 92950; 93005; 93306; 93925; 93971; 94002; 94003; 94640; 97163; 99152; C1725; C1769; G0378; J0131; J0169; J1335; J1642; J1815; J2003; J2250; J2405; J2470; J2543; J3480; J3490; J7060; P9047; Q9967